=== PATIENT | female | born 2000 | race Caucasian/White ===

== ENCOUNTER 2021-10-14 19:24 | Emergency (ER) | payer OTHER, SELFPAY ==
[2021-10-14 19:30] VITALS: BP 145/81; PULSE 100; RESP 20; TEMP 37.1; O2SAT 100
--- NOTE | 2021-10-14 20:24 | ED.DENTAL ---
HPI - Dental/Oral General Chief complaint: Dental/Oral Stated complaint: tooth pain Time Seen by Provider: 10/14/21 20:25 Source: patient, RN notes reviewed and old records reviewed Mode of arrival: ambulatory Limitations: no limitations History of Present Illness HPI Narrative: 21 year old female who presents to [facility] care with 2 weeks of left lower and upper dental pain with stated complaints of some swelling to her left face, noted increased pain today. Patient denies any shortness of breath or any difficulty with her swallowing. She reports that she received oral antibiotics of Clindamycin and completed this week does have appointment with dentist on . Patient reports that she has been taking Ibuprofen and Tylenol for her pain with minimal decrease in pain noted. MD Complaint: tooth pain Location: Tooth # (14,18) Onset (ago): week(s) (2) Duration: constant Severity: severe Severity scale (1-10): 9 Exacerbating factors: chewing Associated symptoms: other (mild left facial swelling) Treatment prior to arrival: oral analgesic Related Data Home Medications Medication Instructions Recorded Confirmed hydroxyzine HCl 25 mg PO HS 10/14/21 10/14/21 metoprolol succinate 25 mg PO DAILY 10/14/21 10/14/21 triamterene-hydrochlorothiazid 1 tablet PO DAILY 10/14/21 10/14/21 Allergies Allergy/AdvReac Type Severity Reaction Status Date / Time Penicillins Allergy Unknown Facial Verified 10/14/21 20:22 swelling Review of Systems Review of Systems: CONSTITUTIONAL: Denies fever, chills, or sweats. EYES: Denies visual changes, redness, or discharge. ENT: Denies rhinorrhea, congestion, sore throat, or otalgia.positive for dental pain and some swelling to her left face CARDIOVASCULAR: Denies chest pain, palpitations, or edema. RESPIRATORY: Denies cough or dyspnea. GASTROINTESTINAL: Denies abdominal pain, nausea, vomiting, or diarrhea. GENITOURINARY: Denies dysuria or hematuria. SKIN: Denies rash or itching. MUSCULOSKELETAL: Denies back pain, joint pain, or myalgia. NEUROLOGIC: Denies headache, numbness, or weakness. PSYCHIATRIC:Positive history of anxiety or depression. All systems reviewed & are unremarkable except as noted in HPI and below PMFSH Past Medical History Medical History (Updated 10/15/21 @ 12:02 by Luma Braxton NP) Hypertension Morbid obesity Surgical History Surgical History (Updated 10/15/21 @ 12:06 by Luma Braxton NP) No history of previous surgery Social History Social History (Updated 10/15/21 @ 12:03 by Luma Braxton NP) Smoking status: Never smoker Alcohol intake: unknown Substance use type: does not use Living arrangements: with family Gender identity (if verbalized by the patient): Female Comments At time of signature, agree with nursing past medical, surgical, social and family history. There is no relevant family history pertinent to the presenting complaint Exam Narrative: GENERAL: Well-appearing, well-nourished, morbidly obese and in no acute distress. HEAD: Normocephalic, atraumatic. EYES: PERRLA and EOMI. ENT: Nares clear, no rhinorrhea or epistaxis. Mucous membranes moist.TM's normal with good light reflex, throat pink with no lesions or exudates or tonsil enlargement, caries noted to left molars #14.,#18 other teeth look in good condition, minimal left facial swelling noted, no Keo angina noted NECK: Supple.No lymphadenopathy CHEST: Clear to auscultation. No respiratory distress.SAO2 100% on room air HEART: Regular rate and rhythm. No murmur heard. Normal peripheral pulses. ABDOMEN: Soft, nontender, nondistended, normal active bowel sounds. EXTREMITIES: Normal range of motion. No edema. SKIN: Warm, dry, no rash. NEURO: No focal deficits. Alert and oriented x3. Course Course Level of Care: Express Care Visit Vital Signs Vital signs: Vital Signs Temperature 37.1 C 10/14/21 19:30 Pulse Rate 100 10/14/21 19:30 Respiratory Rate 20 05/
== END 2021-10-14 20:44 | disposition home or self-care (01) ==
PROVIDERS: Emergency Provider Registered Nurse; PCP Nurse Practitioner Family
DX: K08.89 Other specified disorders of teeth and supporting structures (principal); K02.9 Dental caries, unspecified; I10 Essential (primary) hypertension; E66.9 Obesity, unspecified; Z68.43 Body mass index [BMI] 50.0-59.9, adult
CPT/HCPCS: 99203; G0463

== ENCOUNTER 2021-11-21 13:03 | Emergency (ER) | payer OTHER, SELFPAY ==
--- NOTE | ~2021-11-21 | XR_ITS ---
EXAMINATION: XR chest 2V DATE: 11/21/2021 13:24 INDICATION: Midsternal chest pain TECHNIQUE: PA and lateral views of the chest are obtained. COMPARISON: 09/10/2018 FINDINGS: The lungs are free of acute opacities. There is no pleural effusion or pneumothorax. The ca rdiomediastinal silhouette is normal. The visualized bones and soft tissues are unremarkable. IMPRESSION: 1. No acute cardiopulmonary abnormality. Reviewed, dictated and finalized at location A.
--- NOTE | 2021-11-21 13:05 | ECG_ITS ---
Measurements Intervals [place] Rate: 111 P: 27 MA: 149 QRS: 13 QRSD: 93 T: 68 QT: 313 QTc: 427 Interpretive Statements SINUS TACHYCARDIA LOW-VOLTAGE QRS IN PRECORDIAL LEADS NONSPECIFIC ST ABNORMALITY HIGH LATERAL LEADS BORDERLINE ECG COMPARED TO ECG 09/10/2018 17:03:19 NO SIGNIFICANT CHANGES Electronically Signed On 11-21-2021 14:57:28 CDT by Adolfo Avendano M.D.
[2021-11-21 13:07] VITALS: PULSE 109; RESP 16; TEMP 36.6; O2SAT 98
--- NOTE | 2021-11-21 13:22 | ED.CHESTPAIN ---
HPI - Chest Pain General Chief Complaint: Chest Pain Stated Complaint: chest pain, abdominal pain Time Seen by Provider: 11/21/21 13:06 History of Present Illness HPI narrative: 21-year-old female presents here for midsternal, nonradiating chest pain and slight shortness of breath that started yesterday while she was sitting down at work, she states that it is intermittent, she has never had symptoms like this in the past, denies any recent stressors or anxiety, no nausea or vomiting, no recent cough, fevers or chills. Has not tried taking anything at home. Not worse with different positions or deep breathing. She does state she has history of cardiac disease in both parents. No leg swelling or history of blood clots. Related Data Home Medications Medication Instructions Recorded Confirmed hydroxyzine HCl 25 mg tablet 25 mg PO HS 10/14/21 10/14/21 metoprolol succinate 25 mg 25 mg PO DAILY 10/14/21 10/14/21 tablet,extended release 24 hr triamterene 37.5 1 tablet PO DAILY 10/14/21 10/14/21 mg-hydrochlorothiazide 25 mg tablet Allergies Allergy/AdvReac Type Severity Reaction Status Date / Time Penicillins Allergy Unknown Facial Verified 11/21/21 13:12 swelling Review of Systems Review of Systems: CONST: No fever. HEENT: No sore throat C/V: Chest pain RESP: No difficulty breathing GI: No nausea : No dysuria. M/S: No joint pain. SKIN: No rash. NEURO: [No headache or focal numbness or weakness] PSYCH: [No depression] [facility] Past Medical History Medical History Hypertension Morbid obesity Surgical History Surgical History No history of previous surgery Social History Social History Smoking status: Never smoker Alcohol intake: unknown Substance use type: does not use Gender identity (if verbalized by the patient): Female Exam Narrative: EXAMINATION OF ORGAN SYSTEMS/BODY AREAS: Constitutional: Vital signs per nursing GENERAL:[No acute distress, non-toxic appearing.] HEAD: Normal with no signs of head trauma. EYES: EOMI, conjunctiva normal ENT: Hearing grossly intact LUNGS: Nonlabored breathing. Clear to auscultation bilaterally. HEART: Mildly tachycardic ABD: [Soft], [nontender to palpation] EXT: Normal range of motion SKIN: [No rashes or lesions.] NEURO: [Alert and oriented x 3. No gross focal sensory or strength deficits.] PSYCH: Normal affect Course Vital Signs Vital signs: Vital Signs Temperature 97.9 F 11/21/21 13:07 Pulse Rate 109 H 11/21/21 13:07 Respiratory Rate 16 11/21/21 13:07 Pulse Oximetry 98 11/21/21 13:07 Oxygen Delivery Room Air 11/21/21 13:07 Temperature 97.9 F 11/21/21 13:07 Pulse Rate 109 H 11/21/21 13:07 Respiratory Rate 16 11/21/21 13:07 Pulse Oximetry 98 11/21/21 13:07 Oxygen Delivery Room Air 11/21/21 13:07 MDM - Chest Pain MDM Narrative Medical decision making narrative: 21-year-old female presents with midsternal chest pain and difficulty breathing at rest, vital signs notable for mild tachycardia, exam shows well-appearing patient with clear lungs, my differential includes possible musculoskeletal pain versus very unlikely ACS/SC given her age and no risk factors, PE, gastritis, pneumonia. EKG shows sinus tachycardia without ischemia, labs notable for normal D-dimer, troponin. On reevaluation, patient's heart rate has improved to 100, she states that her chest pain has resolved, she is ready to go home at this time and reassured on her lab findings, chest x-ray and EKG results. Given return precautions and urged to follow-up with her doctor. Lab Data Result diagrams: 11/21/21 13:41 11/21/21 13:41 Labs: Lab Results 11/21/21 11/21/21 11/21/21 Range/Units 13:41 13:41 13:41 WBC 12.3 H (4.5-10.0) K/mm3 RBC 4.94 (4.2-5.
[2021-11-21 13:50] LABS: Basophils Absolute Auto 0.1 K/mm3 (0.0-0.1); Basophils Percent Auto 0.4 % (0.2-1.2); Eosinophils Absolute Auto 0.1 K/mm3 (0-0.3); Eosinophils Percent Auto 0.8 % (0-4.4); Hematocrit 39.5 % (37.0-47.0); Hemoglobin 12.1 g/dL (12.0-15.0); Immature Granulocyte Absolute 0.06 K/mm3 (0.00-0.031); Immature Granulocyte Percent A 0.5 % (0-0.5); Lymphocytes Absolute Auto 2.88 K/mm3 (0.9-3.2); Lymphocytes Percent Auto 23.3 % (18.3-44.2); Mean Corpuscular HGB Conc 30.6 g/dl (32-36); Mean Corpuscular Hemoglobin 24.5 pg (26-34); Mean Platelet Volume 11.1 fl (7.4-10.4); Monocytes Absolute Auto 0.5 K/mm3 (0.1-0.6); Neutrophils Absolute Auto 8.8 K/mm3 (1.3-6.7); Platelet Count Result 319 k/mm3 (150-375); Red Blood Count 4.94 M/mm3 (4.2-5.4); Red Cell Distribution Width 15.9 % (11.5-14.5); White Blood Count 12.3 K/mm3 (4.5-10.0)
[2021-11-21 13:59] LABS: INR 1.1; Partial Thromboplastin Time 27.4 SECONDS (22.3-36.8); Prothrombin Time 13.3 Seconds (11.1-14.7)
[2021-11-21 14:01] LABS: Alanine Aminotransferase 29 U/L (6-35); Albumin Level 4.1 g/dL (3.5-5.1); Alkaline Phosphatase 100 U/L (38-126); Anion Gap 6 mmol/L (8-16); Aspartate Amino Transferase 24 U/L (14-36); Bilirubin,Total 0.2 mg/dL (0.2-1.3); Blood Urea Nitrogen 13 mg/dL (7-17); Calcium 9.1 mg/dL (8.4-10.2); Carbon Dioxide 34 mmol/L (22-30); Chloride 98 mmol/L (98-107); Estimated CRCL calculation 144 ml/min; Estimated Glomerular Filt Rate > 60; Glucose 115 mg/dL (65-110); Lipase 72 U/L (23-300); Potassium 3.5 mmol/L (3.4-5.0); Sodium 138 mmol/L (137-145)
[2021-11-21 14:02] LABS: D Dimer 0.27 ug/mL (<0.48)
[2021-11-21 14:13] LABS: Troponin I < 0.012 ng/mL (0.000-0.034)
[2021-11-21] MEDS: KETOROLAC 15 MG/ML VIAL (*BKC) IV PUSH (14:17)
[2021-11-21] MEDS: FAMOTIDINE 20 MG TABLET PO (15:08)
== END 2021-11-21 15:12 | disposition home or self-care (01) ==
PROVIDERS: Emergency Medicine; Emergency Provider Emergency Medicine; PCP Nurse Practitioner Family
DX: R07.89 Other chest pain (principal); R10.13 Epigastric pain; I10 Essential (primary) hypertension; E66.01 Morbid (severe) obesity due to excess calories; Z68.43 Body mass index [BMI] 50.0-59.9, adult; R00.0 Tachycardia, unspecified; R94.31 Abnormal electrocardiogram [ECG] [EKG]
CPT/HCPCS: 36415; 71046; 80053; 83690; 84484; 85025; 85380; 85610; 85730; 93005; 96374; 99284; A9270; J1885

== ENCOUNTER 2021-12-15 16:55 | Emergency (ER) | payer OTHER, SELFPAY ==
[2021-12-15 16:58] VITALS: BP 180/87; PULSE 105; RESP 16; TEMP 36.8; O2SAT 99
--- NOTE | 2021-12-15 17:09 | ED.DENTAL ---
HPI - Dental/Oral General Chief complaint: Dental/Oral Stated complaint: Toothache Time Seen by Provider: 12/15/21 17:00 Source: patient Mode of arrival: ambulatory Limitations: no limitations History of Present Illness HPI Narrative: Ms. Ross is a 21-year-old female patient presenting to the clinic today with complaints of left lower jaw pain/possible dental infection. She reports this is been bothering her for a few days now. She denies any fever or chills. States that the pain is in the jaw and radiating into the ear. Related Data Home Medications Medication Instructions Recorded Confirmed metoprolol succinate 25 mg 25 mg PO DAILY 10/14/21 12/15/21 tablet,extended release 24 hr triamterene 37.5 1 tablet PO DAILY 10/14/21 12/15/21 mg-hydrochlorothiazide 25 mg tablet Allergies Allergy/AdvReac Type Severity Reaction Status Date / Time Penicillins Allergy Unknown Facial Verified 12/15/21 17:04 swelling Review of Systems Review of Systems: Pertinent positives per HPI. Patient denies any fever, chills, rash, headache, visual changes, dizziness, cough, runny nose, sore throat, shortness of breath, chest pain, palpitations, nausea, vomiting, diarrhea, constipation, abdominal pain, or any urinary issues. PMFSH Past Medical History Medical History Hypertension Morbid obesity Surgical History Surgical History No history of previous surgery Social History Social History Smoking status: Never smoker Alcohol intake: unknown Substance use type: does not use Gender identity (if verbalized by the patient): Female Comments At the time of my signature, I reviewed and agree with the nursing past medical, surgical, social, and family history. There is no relevant family history pertinent to the patient complaint. Exam Narrative: General: Well-developed, well nourished, in no apparent distress Head: Normocephalic, atraumatic Eyes: Pupils equally round and reactive to light bilaterally, EOM intact, sclera and conjunctive clear, no discharge, lids normal Ears: TMs intact and clear, ear canals clear, no drainage, grossly hearing normal. Nose: Nares patent, no discharge, no inflammation, no sinus tenderness. Mouth: Oropharynx without lesions or masses, good dentition, MMM. Poor dentition, tenderness to palpation of the left lower jaw and over the wisdom tooth Neck: Supple, trachea midline, no enlargement of anterior or posterior cervical nodes, no thyroid masses or goiter palpable. Cardio: Regular rate and rhythm, s1 and s2 normal, no murmur appreciated. Resp: Clear to auscultation bilaterally anteriorly and posteriorly, no rhonchi, rales, wheezing or rubs Course Course Emergency Course: Portions of this record may have been created with voice recognition software. Level of Care: Express Care Visit Vital Signs Vital signs: Vital Signs Temperature 36.8 C 12/15/21 16:58 Pulse Rate 105 H 12/15/21 16:58 Respiratory Rate 16 12/15/21 16:58 Blood Pressure 180/87 H 12/15/21 16:58 Pulse Oximetry 99 12/15/21 16:58 Oxygen Delivery Room Air 12/15/21 16:58 Temperature 36.8 C 12/15/21 16:58 Pulse Rate 105 H 12/15/21 16:58 Respiratory Rate 16 12/15/21 16:58 Blood Pressure 180/87 H 12/15/21 16:58 Pulse Oximetry 99 12/15/21 16:58 Oxygen Delivery Room Air 12/15/21 16:58 Vital signs reviewed MDM - Dental/Oral MDM Narrative Medical decision making narrative: At the time of visit patient is resting comfortably on the exam table. I suspect the patient has a dental infection/impaction of wisdom tooth. We will place the patient on a course of clindamycin and have her follow-up with the dentist as soon as possible. Supportive measures were discussed with the patient she voiced understa
== END 2021-12-15 17:13 | disposition home or self-care (01) ==
PROVIDERS: Emergency Provider Nurse Practitioner Family; PCP Nurse Practitioner Family
DX: K08.89 Other specified disorders of teeth and supporting structures (principal); I10 Essential (primary) hypertension; E66.01 Morbid (severe) obesity due to excess calories; Z68.42 Body mass index [BMI] 45.0-49.9, adult
CPT/HCPCS: 99213; G0463

== ENCOUNTER 2022-05-03 13:01 | Emergency (ER) | payer OTHER, SELFPAY ==
[2022-05-03 13:12] VITALS: BP 145/79; PULSE 108; RESP 18; TEMP 36.6; O2SAT 98
--- NOTE | 2022-05-03 13:32 | ED.URI ---
HPI - URI/Sore Throat General Chief Complaint: Upper Respiratory Infection Stated Complaint: Vaginal Issue Source: patient and RN notes reviewed Mode of arrival: ambulatory Limitations: no limitations History of Present Illness HPI Narrative: 22-year-old female presents for complaint of vaginal irritation over the last week. She states she started with burning with urination at the onset, she took azo without relief. She states then it progressed to more itching, redness, tenderness. She endorses thick white vaginal discharge. She has used Monistat 3 without relief. Denies sores or lesions to the site, denies abdominal pain, nausea, vomiting, diarrhea, hematuria, flank pain, fevers or chills. Denies concern for STD. LMP 6 weeks ago, states she has irregular cycles. No control. Unable to be seen by OBgyn. Related Data Home Medications Medication Instructions Recorded Confirmed metoprolol succinate 25 mg 25 mg PO DAILY 10/14/21 05/03/22 tablet,extended release 24 hr triamterene 37.5 1 tablet PO DAILY 10/14/21 05/03/22 mg-hydrochlorothiazide 25 mg tablet Allergies Allergy/AdvReac Type Severity Reaction Status Date / Time Penicillins Allergy Unknown Facial Verified 05/03/22 13:14 swelling Review of Systems Review of Systems: CONSTITUTIONAL: Denies body aches, fever, chills, or sweats. CARDIOVASCULAR: Denies chest pain, palpitations, or edema. RESPIRATORY: Denies cough or dyspnea. GASTROINTESTINAL: Denies abdominal pain, nausea, vomiting, or diarrhea. GENITOURINARY: per HPI SKIN: Denies rash, itching, or wounds. MUSCULOSKELETAL: Denies back pain or myalgia. [facility] Past Medical History Medical History Hypertension Morbid obesity Surgical History Surgical History No history of previous surgery Social History Social History Smoking status: Never smoker Alcohol intake: unknown Substance use type: does not use Gender identity (if verbalized by the patient): Female Comments At time of signature, I have reviewed and agree with nursing past medical, surgical, social and family history unless otherwise noted. Please see nursing chart for further information. There is no relevant family history pertinent to the presenting complaint Exam Narrative: GENERAL: Well-appearing and in no acute distress. ENT: Mucous membranes pink and moist. CHEST: No respiratory distress. Clear to auscultation. HEART: Regular rate and rhythm. ABDOMEN: Soft, large, nontender, nondistended, normal active bowel sounds. No CVA tenderness SKIN: Warm, dry, no rash. NEURO: No focal deficits. Alert and oriented x3. Gait steady. PSYCH: Normal affect. Course Course Emergency Course: Patient is aware of diagnosis, understands and agrees to treatment plan. Anticipatory guidance given. Patient agrees to follow-up as directed and is aware of reasons to seek care at the emergency department. Portions of this record may have been created with voice recognition software Level of Care: Express Care Visit Vital Signs Vital signs: Vital Signs Temperature 97.8 F 05/03/22 13:12 Pulse Rate 108 H 05/03/22 13:12 Respiratory Rate 18 05/03/22 13:12 Blood Pressure 145/79 H 05/03/22 13:12 Pulse Oximetry 98 05/03/22 13:12 Oxygen Delivery Room Air 05/03/22 13:12 Temperature 97.8 F 05/03/22 13:12 Pulse Rate 108 H 05/03/22 13:12 Respiratory Rate 18 05/03/22 13:12 Blood Pressure 145/79 H 05/03/22 13:12 Pulse Oximetry 98 05/03/22 13:12 Oxygen Delivery Room Air 05/03/22 13:12 Reviewed MDM - URI/Sore Throat MDM Narrative Medical decision making narrative: Patient presented with main complaint of vaginal itching. Declines pelvic exam. She denies concern for STD and declines testing. She would like additional
== END 2022-05-03 14:00 | disposition home or self-care (01) ==
PROVIDERS: Emergency Provider Nurse Practitioner Family; PCP Nurse Practitioner Family
DX: N89.8 Other specified noninflammatory disorders of vagina (principal); I10 Essential (primary) hypertension; E66.01 Morbid (severe) obesity due to excess calories; Z68.43 Body mass index [BMI] 50.0-59.9, adult
CPT/HCPCS: 81003; 81025; 87086; 87088; 99213; G0463

== ENCOUNTER 2022-08-29 09:48 | Emergency (ER) | payer OTHER, SELFPAY ==
[2022-08-29 10:01] VITALS: BP 153/86; PULSE 83; RESP 16; TEMP 36.3; O2SAT 98
--- NOTE | 2022-08-29 10:42 | ED.GENADULT ---
HPI - General Adult General Chief complaint: Upper Respiratory Infection Stated complaint: Congestion/Sore Throat Source: patient Mode of arrival: ambulatory Limitations: no limitations History of Present Illness HPI narrative: PATIENT PRESENTS FOR EVALUATION OF SICK SYMPTOMS FOR LAST 2-3 DAYS. SYMPTOMS INCLUDE SINUS CONGESTION, CLEAR RHINORRHEA, SORE THROAT, FRONTAL HEADACHE, AND SUBJECTIVE FEVER. NO CHILLS, NAUSEA, VOMITING, DIARRHEA, COUGH, SHORTNESS OF BREATH. NO RECENT SICK CONTACTS TO HER KNOWLEDGE. SHE TRIED TAKING SOME [id number] COUGH AND COLD MEDICATION WITHOUT CONSIDERABLE IMPROVEMENT IN HER SYMPTOMS OR AFTER. SHE DOES NOT SMOKE. Related Data Home Medications Medication Instructions Recorded Confirmed metoprolol succinate 25 mg 25 mg PO DAILY 10/14/21 05/03/22 tablet,extended release 24 hr triamterene 37.5 1 tablet PO DAILY 10/14/21 05/03/22 mg-hydrochlorothiazide 25 mg tablet Allergies Allergy/AdvReac Type Severity Reaction Status Date / Time Penicillins Allergy Unknown Facial Verified 05/03/22 13:14 swelling Review of Systems Review of Systems: CONSTITUTIONAL: REPORTS FEVER. DENIES CHILLS, OR SWEATS. EYES: DENIES VISUAL CHANGES, REDNESS, OR DISCHARGE. ENT: REPORTS SINUS CONGESTION, CLEAR RHINORRHEA, SORE THROAT. CARDIOVASCULAR: DENIES CHEST PAIN, PALPITATIONS, OR EDEMA. RESPIRATORY: DENIES COUGH OR DYSPNEA. GASTROINTESTINAL: DENIES ABDOMINAL PAIN, NAUSEA, VOMITING, OR DIARRHEA. GENITOURINARY: DENIES DYSURIA OR HEMATURIA. SKIN: DENIES RASH OR ITCHING. MUSCULOSKELETAL: DENIES BACK PAIN, JOINT PAIN, OR MYALGIA. NEUROLOGIC: REPORTS HEADACHE. DENIES NUMBNESS, DIZZINESS, OR WEAKNESS. PSYCHIATRIC: DENIES ANXIETY OR DEPRESSION. [facility] Past Medical History Medical History Hypertension Morbid obesity LEDA (obstructive sleep apnea) Surgical History Surgical History No history of previous surgery Family History Family History Mother Family history non-contributory Social History Social History Smoking status: Never smoker Alcohol intake: unknown Substance use type: does not use Living arrangements: with family Gender identity (if verbalized by the patient): Female Sexual Orientation (if Verbalized by the Patient): Straight or Heterosexual Spiritual care concerns: No Exam Narrative: GENERAL: WELL-APPEARING, WELL-NOURISHED, AND IN NO ACUTE DISTRESS. HEAD: NORMOCEPHALIC, ATRAUMATIC. EYES: PERRLA AND EOMI. ENT: NARES CLEAR, NO RHINORRHEA OR EPISTAXIS. MUCOUS MEMBRANES MOIST. OROPHARYNX WITHOUT TONSILLAR HYPERTROPHY EXUDATE OR OTHER LESIONS. BILATERAL TMS PEARLY LEES NONBULGING NECK: SUPPLE. NO ADENOPATHY OR MASSES. NO CAROTID BRUITS OR JVD CHEST: CLEAR TO AUSCULTATION. NO RESPIRATORY DISTRESS. NO WHEEZES RALES OR RHONCHI HEART: REGULAR RATE AND RHYTHM. NO MURMUR HEARD. NORMAL PERIPHERAL PULSES. ABDOMEN: SOFT, NONTENDER, NONDISTENDED, NORMAL ACTIVE BOWEL SOUNDS. EXTREMITIES: NORMAL RANGE OF MOTION. NO EDEMA. SKIN: WARM, DRY, NO RASH. NEURO: NO FOCAL DEFICITS. ALERT AND ORIENTED X3. PSYCH: NORMAL MOOD AND AFFECT. Course Course Emergency Course: THIS IS A 22-YEAR-OLD FEMALE WHO PRESENTED FOR EVALUATION OF SICK SYMPTOMS. STREP WAS NEGATIVE. EXAM IS CONSISTENT WITH ACUTE VIRAL SYNDROME. SUDAFED AND FLONASE MAY HELP WITH SINUS CONGESTION. INCREASE HYDRATION. FOLLOW UP WITH PRIMARY PROVIDER. GO TO THE ER FOR WORSENING SYMPTOMS. PATIENT IN AGREEMENT WITH PLAN OF CARE. Level of Care: Express Care Visit Vital Signs Vital signs: Vital Signs Temperature 36.3 C L 08/29/22 10:01 Pulse Rate 83 08/29/22 10:01 Respiratory Rate 16 08/29/22 10:01 Blood Pressure 153/86 H 08/29/22 10:01 Pulse Oximetry 98 08/29/22 10:01
== END 2022-08-29 11:27 | disposition home or self-care (01) ==
PROVIDERS: Emergency Provider Nurse Practitioner; PCP Nurse Practitioner Family
DX: B34.9 Viral infection, unspecified (principal); I10 Essential (primary) hypertension; E66.01 Morbid (severe) obesity due to excess calories
CPT/HCPCS: 87081; 87880; 99213; G0463

== ENCOUNTER 2022-09-07 08:45 | Emergency (ER) | payer OTHER, SELFPAY ==
[2022-09-07 08:53] VITALS: BP 149/80; PULSE 100; RESP 18; TEMP 36.6; O2SAT 98
--- NOTE | 2022-09-07 09:04 | ED.URI ---
HPI - URI/Sore Throat General Chief Complaint: Upper Respiratory Infection Stated Complaint: Congestion/Chest Congestion/Sore Throat Source: patient and RN notes reviewed History of Present Illness HPI Narrative: 22 yo F presents to urgent care with complaints of worsening congestion, sore throat, and cough. Pt states her throat is now on fire. Pt was seen here about 1 week ago with the same symptoms and dx with a viral illness. Pt has been using OTC meds without relief. Pt reports vomiting with coughing hard. Pt reports some SOB. Denies any chest pain, ear pain, or diarrhea. Related Data Home Medications Medication Instructions Recorded Confirmed metoprolol succinate 25 mg 25 mg PO DAILY 10/14/21 09/07/22 tablet,extended release 24 hr triamterene 37.5 1 tablet PO DAILY 10/14/21 09/07/22 mg-hydrochlorothiazide 25 mg tablet Allergies Allergy/AdvReac Type Severity Reaction Status Date / Time Penicillins Allergy Unknown Facial Verified 05/03/22 13:14 swelling Review of Systems Review of Systems: Pertinent positives and pertinent negatives per HPI. PMF Past Medical History Medical History Hypertension Morbid obesity LEDA (obstructive sleep apnea) Surgical History Surgical History No history of previous surgery Family History Family History Mother Family history non-contributory Social History Social History Smoking status: Never smoker Alcohol intake: unknown Substance use type: does not use Living arrangements: with family Gender identity (if verbalized by the patient): Female Sexual Orientation (if Verbalized by the Patient): Straight or Heterosexual Spiritual care concerns: No Comments At the time of my signature, I reviewed and agree with the nursing past medical, surgical, social, and family history. There is no relevant family history pertinent to the patient complaint. Exam Narrative: GENERAL: This is a well-nourished, well-developed patient, in no apparent distress. HEAD: normocephalic, atraumatic. EYES: Sclera clear/white. Vision is grossly intact. EARS: External ears normal, auditory canals clear and without drainage. Hearing grossly intact. NOSE: External nose normal with no obvious nasal discharge, nares without redness, no rhinorrhea. THROAT: Mucous membranes moist, posterior pharynx clear. NECK: Neck supple, non-tender without lymphadenopathy, masses or thyromegaly. CARDIOVASCULAR: Regular rate and rhythm without murmurs, gallops, or rubs. RESPIRATORY:Diminished, possibly due to body habitus. GASTROINTESTINAL: Abdomen soft, non-tender, nondistended. Bowel sounds are active. No hepato-splenomegaly, or palpable masses. No guarding. SKIN: warm, intact with no suspicious lesions or rash, good texture and turgor. NEURO: awake, alert, and oriented to person, place and time. There were no obvious focal neurologic abnormalities. Course Course Level of Care: Express Care Visit Vital Signs Vital signs: Vital Signs Temperature 98 F 09/07/22 08:53 Pulse Rate 100 09/07/22 08:53 Respiratory Rate 18 09/07/22 08:53 Blood Pressure 149/80 H 09/07/22 08:53 Pulse Oximetry 98 09/07/22 08:53 Oxygen Delivery Room Air 09/07/22 08:53 Temperature 98 F 09/07/22 08:53 Pulse Rate 100 09/07/22 08:53 Respiratory Rate 18 09/07/22 08:53 Blood Pressure 149/80 H 09/07/22 08:53 Pulse Oximetry 98 09/07/22 08:53 Oxygen Delivery Room Air 09/07/22 08:53 Reviewed MDM - URI/Sore Throat MDM Narrative Medical decision making narrative: Go to the ER for any new or worsening symptoms. Avoid smoking/second-hand smoke. Continue to take Tylenol or Motrin for pain. Increase your Vitamin C intake. Use a humidifi
== END 2022-09-07 09:22 | disposition home or self-care (01) ==
PROVIDERS: Emergency Provider Nurse Practitioner Family; PCP Nurse Practitioner Family
DX: J32.9 Chronic sinusitis, unspecified (principal); I10 Essential (primary) hypertension; E66.01 Morbid (severe) obesity due to excess calories; Z68.44 Body mass index [BMI] 60.0-69.9, adult
CPT/HCPCS: 99213; G0463

== ENCOUNTER 2023-02-09 10:09 | Emergency (ER) | payer OTHER, SELFPAY ==
[2023-02-09 10:29] VITALS: BP 125/70; PULSE 99; RESP 16; TEMP 36.8; O2SAT 99
--- NOTE | 2023-02-09 11:00 | ED.GENADULT ---
HPI - General Adult General Chief complaint: Upper Respiratory Infection Stated complaint: Sore Throat/Nausea Time Seen by Provider: 02/09/23 11:00 Source: patient and RN notes reviewed Mode of arrival: ambulatory Limitations: no limitations History of Present Illness HPI narrative: 23 year old female who presents to [facility] care with complaints of intermittent nausea and vomiting for past week, children also with similar symptoms. Patient had gastric sleeve procedure 3 weeks ago and did call her surgeon. Patient denies any known fevers chills or body aches, denies any sore throat,reports some cough with productive mucous of yellowish green. Patient reports that she last vomited yesterday around noon. Patient reports that she has taken some Zofran and Tylenol for her symptoms. Patient denies any abdominal pain. MD complaint: nausea and vomiting, productive cough Onset (ago): week(s) (1) Severity: mild Treatments prior to arrival: other (Zofran, Tylenol) Related Data Home Medications Medication Instructions Recorded Confirmed metoprolol succinate 25 mg 25 mg PO DAILY 10/14/21 02/09/23 tablet,extended release 24 hr triamterene 37.5 1 tablet PO DAILY 10/14/21 02/09/23 mg-hydrochlorothiazide 25 mg tablet Allergies Allergy/AdvReac Type Severity Reaction Status Date / Time Penicillins Allergy Unknown Facial Verified 02/09/23 10:27 swelling Review of Systems Review of Systems: CONSTITUTIONAL: Denies fever, chills, or sweats. EYES: Denies visual changes, redness, or discharge. ENT:Some rhinorrhea, congestion, no sore throat, or otalgia. CARDIOVASCULAR: Denies chest pain, palpitations, or edema. RESPIRATORY: Reports productive cough or dyspnea. GASTROINTESTINAL: Denies abdominal pain, positive for nausea, vomiting, no diarrhea. GENITOURINARY: Denies dysuria or hematuria. SKIN: Denies rash or itching. MUSCULOSKELETAL: Denies back pain, joint pain, or myalgia. NEUROLOGIC: Denies headache, numbness, or weakness. PSYCHIATRIC: Denies anxiety or depression. All systems reviewed & are unremarkable except as noted in HPI and below PMFSH Past Medical History Medical History Hypertension Morbid obesity LEDA (obstructive sleep apnea) Surgical History Surgical History (Updated 02/10/23 @ 10:20 by Luma Braxton NP) H/O gastric sleeve Family History Family History Mother Family history non-contributory Social History Social History Smoking status: Never smoker Alcohol intake: unknown Substance use type: does not use Living arrangements: with family Gender identity (if verbalized by the patient): Female Sexual Orientation (if Verbalized by the Patient): Straight or Heterosexual Spiritual care concerns: No Comments At time of signature, agree with nursing past medical, surgical, social and family history. There is no relevant family history pertinent to the presenting complaint Exam Narrative: GENERAL: Well-appearing, well-nourished, and in no acute distress. HEAD: Normocephalic, atraumatic. EYES: PERRLA and EOMI. ENT: Nares clear, clear rhinorrhea no epistaxis. Mucous membranes moist.TM's normal, throat pink with no lesions or swelling NECK: Supple.no lymphadenopathy CHEST: Clear to auscultation. No respiratory distress. SAO2 99% on room air HEART: Regular rate and rhythm. No murmur heard. Normal peripheral pulses. ABDOMEN: Soft, nontender, nondistended, normal active bowel sounds.intermittent nausea with vomiting EXTREMITIES: Normal range of motion. No edema. SKIN: Warm, dry, no rash. NEURO: No focal deficits. Alert and oriented x3. Course Course Emergency Course: Patient is aware of diagnosis, understands and agrees to treatment plan.? Anticipatory guidance given.? Patient agrees to follow-up as directed and is aw
== END 2023-02-09 11:45 | disposition home or self-care (01) ==
PROVIDERS: Emergency Provider Registered Nurse; PCP Nurse Practitioner Family
DX: R11.2 Nausea with vomiting, unspecified (principal); I10 Essential (primary) hypertension; E66.01 Morbid (severe) obesity due to excess calories; Z68.43 Body mass index [BMI] 50.0-59.9, adult; Z98.84 Bariatric surgery status
CPT/HCPCS: 99211; G0463

== ENCOUNTER 2023-12-29 14:30 | Emergency (ER) | payer OTHER, SELFPAY ==
[2023-12-29 14:38] VITALS: BP 127/72; PULSE 103; RESP 20; TEMP 36.6; O2SAT 99
--- NOTE | 2023-12-29 15:07 | ED.URI ---
HPI - URI/Sore Throat General Chief Complaint: Upper Respiratory Infection Stated Complaint: Ear Pain/Sore Throat Time Seen by Provider: 12/29/23 14:50 Source: patient, RN notes reviewed and old records reviewed Mode of arrival: ambulatory Limitations: no limitations History of Present Illness HPI Narrative: 23 year old female who presents to [facility] care with complaints of one week of feeling drained with pain to her left ear for the past 2 days radiating to her throat with pain to right side of her neck. Patient reports that she has had fevers up to 101F and has been taking Tylenol for her symptoms.Patient reports no cough or any sinus congestion or drainage or sore throat. MD elicited complaint: other (ear pain) Pertinent past history: tympanostony tubes (as child) Onset (ago): day(s) (2 days) Pain scale (0-10): 5 Able to tolerate fluids by mouth: Yes Treatments prior to arrival: acetaminophen Related Data Home Medications Medication Instructions Recorded Confirmed metoprolol succinate 25 mg 25 mg PO DAILY 10/14/21 02/09/23 tablet,extended release 24 hr triamterene 37.5 1 tablet PO DAILY 10/14/21 02/09/23 mg-hydrochlorothiazide 25 mg tablet famotidine 20 mg tablet mg 12/29/23 medroxyprogesterone 10 mg tablet mg 12/29/23 Allergies Allergy/AdvReac Type Severity Reaction Status Date / Time Penicillins Allergy Unknown Facial Verified 02/09/23 10:27 swelling Review of Systems Review of Systems: CONSTITUTIONAL: Reports malaise, chills, sweats, or fever. EYES: Denies visual changes, redness, or discharge. ENT: Reports no rhinorrhea, congestion, sinus pain, left ear pain otalgia and no sore throat, reports left neck gland discomfort CARDIOVASCULAR: Denies chest pain, palpitations, or edema. RESPIRATORY: Reports no cough.? Denies dyspnea. GASTROINTESTINAL: Denies abdominal pain, nausea, vomiting, diarrhea SKIN: Denies rash or itching. MUSCULOSKELETAL: Denies myalgia. NEUROLOGIC: Denies headache. All systems reviewed & are unremarkable except as noted in HPI and below PMFSH Past Medical History Medical History Hypertension Morbid obesity LEDA (obstructive sleep apnea) Surgical History Surgical History H/O gastric sleeve History of placement of ear tubes Family History Family History Mother Family history non-contributory Social History Social History Smoking status: Never smoker Alcohol intake: unknown Substance use type: does not use Living arrangements: with family Gender identity (if verbalized by the patient): Female Sexual Orientation (if Verbalized by the Patient): Straight or Heterosexual Spiritual care concerns: No Comments At time of signature, agree with nursing past medical, surgical, social and family history. There is no relevant family history pertinent to the presenting complaint Exam Narrative: GENERAL: Well-appearing, well-nourished, and in no acute distress. HEAD: Normocephalic EYES: PERRLA, conjunctivae clear ENT: Nares clear, turbinates edematous and erythematous, clear discharge. Mucous membranes moist.Left TM red and bulging, Right TM pearly davalos with dull light reflex; no tragal tenderness. Oropharynx erythematous without lesions. Tonsils not enlarged and without exudate, no drooling, no hoarseness, no trismus, uvula midline. NECK: Supple. left lymphadenopathy CHEST: Clear to auscultation, breath sounds equal. No wheezing, rhonchi, rales, or stridor. No respiratory distress, speaks in full sentences.SAO2 99% on room air HEART: Regular rate and rhythm. No murmur heard. SKIN: Warm, dry, no rash. NEURO: Alert and oriented x3. PSYCH: Normal mood and affect Course Course Emergency Course: Patient
== END 2023-12-29 15:25 | disposition home or self-care (01) ==
PROVIDERS: Emergency Provider Registered Nurse; PCP Nurse Practitioner Family
DX: H66.92 Otitis media, unspecified, left ear (principal); I10 Essential (primary) hypertension; E66.01 Morbid (severe) obesity due to excess calories; Z68.41 Body mass index [BMI] 40.0-44.9, adult; Z98.84 Bariatric surgery status
CPT/HCPCS: 99213; G0463

== ENCOUNTER 2024-06-06 09:22 | Emergency (ER) | payer OTHER, SELFPAY ==
[2024-06-06 09:31] VITALS: BP 134/75; PULSE 88; RESP 18; TEMP 36.6; O2SAT 99
--- NOTE | 2024-06-06 09:50 | ED.FEMALEGU ---
HPI - Female Genitourinary General Chief complaint: Urogenital-Female Stated complaint: STD test Time Seen by Provider: 06/06/24 09:50 Source: patient and RN notes reviewed Mode of arrival: ambulatory Limitations: no limitations History of Present Illness HPI Narrative: 24-year-old female presented for concern for STD And exposure. She states she had unprotected sexual activity and woke up the following morning on 06/04 with lower abdominal pressure, vaginal discharge , odor, and irritation. she was then told the partner tested positive for chlamydia but did not think she could get at that quickly. denies nausea, vomiting, diarrhea, fevers or chills. Related Data Home Medications ?Medication ?Instructions ?Recorded ?Confirmed ?Last Taken ?Type metoprolol succinate 25 mg 25 mg PO DAILY 10/14/21 02/09/23 Unknown History tablet,extended release 24 hr triamterene 37.5 1 tablet PO DAILY 10/14/21 02/09/23 Unknown History mg-hydrochlorothiazide 25 mg tablet Allergies Allergy/AdvReac Type Severity Reaction Status Date / Time Penicillins Allergy Unknown Facial Verified 02/09/23 10:27 swelling Review of Systems Review of Systems: CONSTITUTIONAL: Denies body aches, fever, chills, or sweats. CARDIOVASCULAR: Denies chest pain, palpitations, or edema. RESPIRATORY: Denies cough or dyspnea. GASTROINTESTINAL: Denies abdominal pain, nausea, vomiting, or diarrhea. GENITOURINARY: Reports vaginal discharge, low abdominal pressure denies dysuria, frequency, urgency, hematuria, flank pain SKIN: Denies rash MUSCULOSKELETAL: Denies back pain or myalgia. [facility] Past Medical History Medical History LEDA (obstructive sleep apnea) Morbid obesity Hypertension Surgical History Surgical History History of placement of ear tubes H/O gastric sleeve Family History Family History Mother Family history non-contributory Social History Social History Smoking status: Never smoker Alcohol intake: unknown Substance use type: does not use Living arrangements: with family Gender identity (if verbalized by the patient): Female Sexual Orientation (if Verbalized by the Patient): Straight or Heterosexual Spiritual care concerns: No Comments At time of signature, I have reviewed and agree with nursing past medical, surgical, social and family history unless otherwise noted. Please see nursing chart for further information. There is no relevant family history pertinent to the presenting complaint Exam Narrative: GENERAL: Well-appearin ENT: Mucous membranes pink and moist. NECK: Normal AROM. Supple. CHEST: No respiratory distress. Clear to auscultation. HEART: Regular rate and rhythm. ABDOMEN: Soft, nontender, nondistended, normal active bowel sounds. No CVA tenderness SKIN: Warm, dry NEURO: No focal deficits. Alert and oriented x3. Gait steady. PSYCH: Normal affect. Course Course Emergency Course: Patient is aware of diagnosis, understands and agrees to treatment plan. Anticipatory guidance given. Patient agrees to follow-up as directed and is aware of reasons to seek care at the emergency department. Portions of this record may have been created with voice recognition software Level of Care: Express Care Visit Vital Signs Vital signs: Vital Signs Temperature 98 F 06/06/24 09:31 Pulse Rate 88 06/06/24 09:31 Respiratory Rate 18 06/06/24 09:31 Blood Pressure 134/75 06/06/24 09:31 Pulse Oximetry 99 06/06/24 09:31 Oxygen Delivery Room Air 06/06/24 09:31 Temperature 98 F 06/06/24 09:31 Pulse Rate 88 06/06/24 09:31 Respiratory Rate 18 06/06/24 09:31 Blood Pressure 134/75 06/06/24 09:31 Pulse Oximetry 99 06/06/24 09:31 Oxygen Delivery Room Air 06/06/24 09:31 Reviewed MDM - Female Genitourinary MDM Narrative Medical decision making narrative: Patient presenting with concern for STD. Urine specimen collected for GC, chlamydia, trich. Neg preg. declined pelvic exam. Informed Pt will be contacted w/ results when they become available if they are positive. Discussed with patient that it takes up to 7 days for results of cultures to be released and explained that we may treat empirically at this time. Agreeable to treatment at this time. I have instructed the patient to return to the ER at any time if there are any new or worsening symptoms. The patient expressed understanding of and agreement with this plan. Differential Diagnosis Differential diagnosis: Likely urinary tract infection, bacterial vaginosis, trichomoniasis, vaginitis, cystitis and other (std) Lab Data Labs: Lab Results 06/06/24 Range/Units 10:05 POC Urine HCG, Qual Negative (Negative) Discharge Plan Discharge Clinical Impression: Concern about STD in female without diagnosis Patient Disposition: Home, Self-Care Condition: Stable Instructions: Antibiotic Form, Sexually Transmitted Diseases (ED), Safe Sex Practices (ED) Additional Instructions: Your urine sample today was sent off to test for gonorrhea, chlamydia, and trichomonas infections. You will be called if any of your tests come back positive. These tests can take up to 5 days to come back. You have been given Rocephin today to treat for gonorrhea Prescriptions for Flagyl and Doxycycline have been sent to your pharmacy to cover for trichomonas and chlamydia. If your tests come back positive you should need no further treatment. You will need to notify any partners that you have so they can be tested and treated. To avoid reinfection, you are advised to abstain from sexual intercourse for 7 days (and any symptoms have resolved) to prevent transmission. If your tests come back negative and you are still experiencing symptoms, please follow-up with your PCP or Obgyn for further evaluation and treatment. If your symptoms worsen to include fever, abdominal pain, or back pain, please go to the hospital immediately. Patient Language: Amharic Prescriptions: New metronidazole 500 mg tablet 500 mg PO Q12H 7 Days Qty: 14 0RF doxycycline hyclate 100 mg tablet 100 mg PO BID 7 Days Qty: 14 0RF No Action azithromycin 500 mg tablet 500 mg PO DAILY 5 Days Qty: 5 0RF metoprolol succinate 25 mg tablet extended release 24 hr 25 mg PO DAILY triamterene-hydrochlorothiazid 37.5-25 mg tablet 1 tablet PO DAILY Follow-up/Referrals: PHYSICIAN NOT ON STAFF,NONSTAFF [Primary Care Provider] -
[2024-06-06 10:07] LABS: BEDSIDEPREGUCG Negative (Negative)
[2024-06-06] MEDS: cefTRIAXone 500 MG, LIDOCAINE 1% LOCAL INJ 1 ML IM (10:11)
[2024-06-06 19:38] LABS: Trichomonas Vag PCR NOT DETECTED (NOT DETECTE)
[2024-06-06 20:01] LABS: Chlamydia trachomatis NOT DETECTED (NOT DETECTE); Neisseria gonorrhoeae PCR NOT DETECTED (NOT DETECTE)
--- OUTSIDE RECORDS SUMMARY | 2024-06-13 23:55 | XMS_ITS | Encounter Summary ---
Author Organization [facility] [employer] Care Team Providers Care Hospitality Manager Name Role Phone Damian Verde APRN, CNP Primary Care Provider + Encounter Details Date Type Department Care Team (Latest Contact Info) Description 04/27/2020 Travel Social History Tobacco Use Types Packs/Day Years Used Date Smoking Tobacco: Never Smokeless Tobacco: Never Alcohol Use Standard Drinks/Week Comments Yes 0 (1 standard drink = 0.6 oz pur e alcohol) occasionally Comments No Sex and Gender Information Value Date Recorded Sex Assigned at Not on file Legal Sex Female 10:18 PM CDT Gender Identity Not on file Sexual Orientation Not on file COVID-19 Exposure Response Date Recorded In the last month, have you been in contact with someone who was confirmed or suspected to have Coronavirus / COVID-19? No / Unsure 04/27/2020 12:43 PM MILITARY EDUCATION COORDINATOR documented as of this encounter Plan of Treatment Upcoming Encounters Date Type Department Care Team (Late st Contact Info) Description 08/07/2024 10:00 AM MILITARY EDUCATION COORDINATOR Office Visit [facility]monology & [facility] Medicine - [address] [place] [address] Philippe Granados MD [address] [place] [id number] documented as of this encounter Visit Diagnoses Not on filedocumented in this encounter Care Teams Hospitality Manager Relationship Specialty Start Date End Date Damian Verde, CYTOPATHOLOGIST, CAR REFINISHER [address] [place] [address] PCP - General Internal Medicine 04/27/20 10/04/21 documented as of this encounter
--- OUTSIDE RECORDS SUMMARY | 2024-06-13 23:55 | XMS_ITS | Encounter Summary ---
Author Organization [facility] Address [address] [place] [address] Phone Care Team Providers Care Geological Manager Name Role Phone Damian Verde APRN, PLANT PHYSIOLOGY TEACHER Primary Care Provider + Reason for Visit * Reason Comments Vaginal Bleeding Encounter Details Date Type Department Care Team (Late st Contact Info) Description 04/27/2020 12:48 PM INSIDE SALES TERRITORY MANAGER - 04/27/2020 2:17 PM INSIDE SALES TERRITORY MANAGER Emergency [facility] Emergency [address] [place] [address] Nayan Mauricio, PAC [address] [place] [address] Menorrhagia Discharge Disposition: Discharged to home or Selfcare Social History Tobacco Use Types Packs/Day Years [...] COVID-19? No / Unsure 04/27/2020 12:43 PM INSIDE SALES TERRITORY MANAGER documented as of this encounter Last Filed Vital Signs Vital Sign Reading Time Taken Comments Blood Pressure 142/86 04/27/2020 2:15 PM INSIDE SALES TERRITORY MANAGER Pulse 86 04/27/2020 2:15 PM INSIDE SALES TERRITORY MANAGER Temperature 36.6 ??C (97.9 ??F) 04/27/2020 12:[address] Respiratory Rate 18 04/27/2020 2:15 PM INSIDE SALES TERRITORY MANAGER Oxygen Saturation 99% 04/27/2020 2:15 PM INSIDE SALES TERRITORY MANAGER Inhaled Oxygen Concentration - - Weight 136.1 kg (300 lb) 04/27/2020 12:42 PM INSIDE SALES TERRITORY MANAGER Height 165.1 cm (5' 5 ) 04/27/2020 12:42 PM INSIDE SALES TERRITORY MANAGER Body Mass Index 49.92 04/27/2020 12:42 PM INSIDE SALES TERRITORY MANAGER documented in this encounter Discharge Instructions * Attachments The following attachments cannot be sent through Care Everywhere. * Dysfunctional Uterine Bleeding ([place]) documented in this encounter Medications at Time of Discharge azithromycin (ZITHROMAX Z-ISHAN) 250 MG Tablet 2 tab(s) daily for 1 day, then 1 tab(s) daily for days 2-5. 6 Tab 12/16/2019 01/18/2022 ferrous sulfate 325 (65 Fe) MG Tablet Take 1 Tab by mouth 2 times daily. 180 Tab 05/14/2017 2023 HYDROcodone-acet aminophen (NORCO) 5-325 MG Tablet Take 1 Tab by mouth every 6 hours as needed for Moderate or more severe pain. 10 Tab 01/28/2019 01/18/2022 ibuprofen (MOTRIN) 600 MG Tablet Take 1 Tab by mouth every 6 hours as needed for Pain. 20 Tab 07/25/2017 01/18/2022 ketorolac (TORADOL) 10 MG Tablet Take 1 Tab by mouth every 6 hours as needed for Mild or more severe pain. 15 Tab 12/16/2019 01/18/2022 metroNIDAZOLE (FLAGYL) 500 MG Tablet Take 1 Tab by mouth 2 times daily. 28 Tab 04/29/2018 01/18/2022 documented as of this encounter ED Notes * Melissa Soto RN - 04/27/2020 2:16 PM CST Patient discharged. Discharge instructions and patient educational material reviewed with patient; questions and concerns addressed; patient verbalizes understanding, using teach back. Patient was given 0 prescriptions. Patient ambulatory with steady gait; no distress noted. DE SALES TERRITORY MANAGER * Nayan Mauricio, MIGUE - 04/27/2020 2:01 PM CST Chief Complaint Patient presents with ??? Vaginal Bleeding Maeve Ross is a 20 y.o. female who presents to the ED c/o rechecking CBC. Patient has been experiencing menorrhagia x1 month. She has been working with her solar sales assessor, Dr. Laurent, who she has an appointment with tomorrow who wanted to get her CBC rechecked to assess her chronic blood loss. She is saturating a pad every 2-3 hours. Her last hemoglobin was 11.6 on 04/24. Past Medical History Positives No date: Hypertension No current facility-administered medications for this encounter. Current Outpatient Medications Medication Sig Dispense Refill ??? azithromycin (ZITHROMAX Z-ISHAN) 250 MG Tablet 2 tab(s) daily for 1 day, then 1 tab(s) daily for days 2-5. 6 Tab 0 ??? ferrous sulfate 325 (65 Fe) MG Tablet Take 1 Tab by mouth 2 times daily. 180 Tab 0 ??? HYDROcodone-acetaminophen (NORCO) 5-325 MG Tablet Take 1 Tab by mouth every 6 hours as needed for Moderate or more severe pain. 10 Tab 0 ??? ibuprofen (MOTRIN) 600 MG Tablet Take 1 Tab by mouth every 6 hours as needed for Pain. 20 Tab 0 ??? ketorolac (TORADOL) 10 MG Tablet Take 1 Tab by mouth every 6 hours as needed for Mild or more severe pain. 15 Tab 0 ??? metroNIDAZOLE (FLAGYL) 500 MG Tablet Take 1 Tab by mouth 2 times daily. 28 Tab 0 Allergies Allergen Reactions ??? Penicillins Swelling Past Medical History Positives Diagnosis Date ??? Hypertension Past Surgical History: Procedure Laterality Date ??? CHOLECYSTECTOMY ??? OVARIAN CYST REMOVAL ??? TYMPANOSTOMY TUBE PLACEMENT Social History Socioeconomic History ??? Marital status: Single Spouse name: Not on file ??? Number of children: Not on file ??? Years of education: Not on file ??? Highest education level: Not on file Occupational History ??? Not on file Social Needs ??? Financial resource strain: Not on file ??? Food insecurity Worry: Not on file Inability: Not on file ??? Transportation needs Medical: Not on file Non-medical: Not on file Tobacco Use ??? Smoking status: Never Smoker ??? Smokeless tobacco: Never Used Substance and Sexual Activity ??? Alcohol use: Yes Comment: occasionally ??? Drug use: No ??? Sexual activity: Not on file Lifestyle ??? Physical activity Days per week: Not on file Minutes per session: Not on file ??? Stress: Not on file Relationships ??? Social connections Talks on phone: Not on file Gets together: Not on file Attends voodoo service: Not on file Active member of club or organization: Not on file Attends meetings of clubs or organizations: Not on file Relationship status: Not on file ??? Intimate partner violence Fear of current or ex partner: Not on file Emotionally abused: Not on file Physically abused: Not on file Forced sexual activity: Not on file Other Topics Concern ??? Not on file Social History Narrative ??? Not on file BP (!) 123/100 Pulse 88 Temp 97.9 ??F (36.6 ??C) (Tympanic) Resp 20 Ht 5' 5 (1.651 m) Wt300 lb (136.1 kg) LMP 12/16/2019 SpO2 100% BMI 49.92 kg/m?? Review of Systems Constitutional: Negative for chills, fatigue and fever. HENT: Negative for congestion and sore throat. Respiratory: Negative for cough, chest tightness, shortness of breath and wheezing. Cardiovascular: Negative for chest pain and palpitations. Gastrointestinal: Negative for abdominal pain, constipation, diarrhea, nausea and vomiting. Genitourinary: Positive for pelvic pain (cramping) and vaginal bleeding. Negative for dysuria, frequency, urgency, vaginal discharge and vaginal pain. Skin: Negative for color change and wound. Neurological: Negative for dizziness, light-headedness and headaches. Physical Exam Vitals signs and nursing note reviewed. Constitutional: General: She is not in acute distress. Appearance: She is well-developed. She is not diaphoretic. HENT: Head: Normocephalic and atraumatic. Eyes: Pupils: Pupils are equal, round, and reactive to light. Neck: Musculoskeletal: Normal range of motion and neck supple. Thyroid: No thyromegaly. Cardiovascular: Rate and Rhythm: Normal rate and regular rhythm. Heart sounds: Normal heart sounds. No murmur. Pulmonary: Effort: Pulmonary effort is normal. No respiratory distress. Breath sounds: Normal breath sounds. No wheezing, rhonchi or rales. Chest: Chest wall: No tenderness. Abdominal: General: Bowel sounds are normal. There is no distension. Palpations: Abdomen is soft. There is no mass. Tenderness: There is no abdominal tenderness. There is no guarding or rebound. Genitourinary: Comments: deferred Musculoskeletal: Normal range of motion. General: No tenderness. Skin: General: Skin is warm and dry. Coloration: Skin is not pale. Findings: No erythema or rash. Neurological: Mental Status: She is alert and oriented to person, place, and time. Cranial Nerves: No cranial nerve deficit. Psychiatric: Behavior: Behavior normal. Procedures Imaging Results None MDM Coding Clinical Impression 1. Menorrhagia H and H stable for patient. She will follow up with solar sales assessor tomorrow at 1415 appointment. Return to ED for worsening sxs The patient remained stable throughout their ED stay. My clinical impression was discussed with thepatient/family. Labs and radiology results were reviewed with them. I gave them the opportunity to ask questions, and addressed them as completely as possible given the information available at present. The therapeutic plan was discussed, advised to take medications as instructed, instructions weregiven and the importance of primary care follow up was stressed and encouraged. The patient/family voiced understanding of the plan, indications to return, and the need for follow up. Cosigned by Alexx Arceo MD at 04/27/2020 5:17 PM INSIDE SALES TERRITORY MANAGER DE SALES TERRITORY MANAGER DE SALES TERRITORY MANAGER * Susan Carrion RN - 04/27/2020 12:45 PM CST Patient presents to ED triage with complaint of vaginal bleeding. Patient states that she is on herperiod and it is heavier than normal. Patient states that she is saturating 2 pads every hour passing some clots. Patient states that she has history of being anemic and Her OBGYN sent her to have her blood count checked. Patient was also seen at [facility] on the 04/24 for a ruptured ovarian cyst. Patient left did leave [facility]. No distress ntoed. DE SALES TERRITORY MANAGER documented in this encounter Plan of Treatment Upcoming Encounters Date Type Department Care Team (Late st Contact Info) Description 08/07/2024 10:00 AM INSIDE SALES TERRITORY MANAGER Office Visit [facility] - Pulmonology & [facility] Medicine - [place] [address] [place] [address] Philippe Granados MD [address] [place] [address] documented as of this encounter Procedures Procedure Name Priority Date/Time Associated Diagnosis Comments EXTRA TUBES STAT 04/27/2020 1:07 PM INSIDE SALES TERRITORY MANAGER MINT GREEN, LI HEPARIN/SST TOP TUBE STAT 04/27/2020 1:07 PM INSIDE SALES TERRITORY MANAGER GOLD TOP TUBE STAT 04/27/2020 1:07 PM INSIDE SALES TERRITORY MANAGER BLUE TOP TUBE STAT 04/27/2020 1:07 PM INSIDE SALES TERRITORY MANAGER CBC WITH AUTO DIFFERENTIAL STAT 04/27/2020 1:07 PM INSIDE SALES TERRITORY MANAGER COMPLETE BLOOD COUNT (CBC) WITH DIFF STAT 04/27/2020 1:07 PM INSIDE SALES TERRITORY MANAGER documented in this encounter Results * MINT GREEN, LI HEPARIN/SST TOP TUBE (04/27/2020 1:07 PM INSIDE SALES TERRITORY MANAGER) Blood Venipuncture / Unknown 04/27/2020 1:07 PM INSIDE SALES TERRITORY MANAGER 04/27/2020 1:32 PM INSIDE SALES TERRITORY MANAGER us Nayan Mauricio PAC HEMATOLOGY ORDERABLE S Final Result [facility] [address] [place] [address] * Gold Top Tube (04/27/2020 1:07 PM INSIDE SALES TERRITORY MANAGER) Blood Venipuncture / Unknown 04/27/2020 1:07 PM INSIDE SALES TERRITORY MANAGER 04/27/2020 1:32 PM INSIDE SALES TERRITORY MANAGER us Nayan Hall Luly PAC CHEMISTRY ORDERABLES Final Result Performing Organization Address City/[facility]/ZIP Co de Phone Number [facility] [address] [place] [address] * Blue Top Tube (04/27/2020 1:07 PM INSIDE SALES TERRITORY MANAGER) Blood Venipuncture / Unknown 04/27/2020 1:07 PM INSIDE SALES TERRITORY MANAGER 04/27/2020 1:32 PM INSIDE SALES TERRITORY MANAGER us Nayan Hall Luly PAC HEMATOLOGY ORDERABLE S Final Result Performing Organization Address City/[facility]/ZIP Co de Phone Number [facility] [address] [place] [address] * (ABNORMAL) CBC with Auto Differential (04/27/2020 1:07 PM INSIDE SALES TERRITORY MANAGER) WBC 10.26 4.00 - 12.00 10(3)/mcL 04/27/2020 1:44 PM INSIDE SALES TERRITORY MANAGER [facility] RBC 4.84 3.80 - 5.30 10(6)/mcL 04/27/2020 1:44 PM INSIDE SALES TERRITORY MANAGER [facility] HEMOGLOBIN (HGB) 11.8(L) 12.0 - 15.8 g/dL 04/27/2020 1:44 PM INSIDE SALES TERRITORY MANAGER [facility] HEMATOCRIT (HCT) 39.1 36.0 - 47.0 % 04/27/2020 1:44 PM INSIDE SALES TERRITORY MANAGER [facility] MCV 80.8(L) 82.0 - 96.0 fL 04/27/2020 1:44 PM INSIDE SALES TERRITORY MANAGER [facility] MCH 24.4(L) 26.0 - 34.0 pg 04/27/2020 1:44 PM INSIDE SALES TERRITORY MANAGER [facility] MCHC 30.2(L) 31.0 - 36.0 g/dL 04/27/2020 1:44 PM INSIDE SALES TERRITORY MANAGER [facility] PLATELET COUNT 295 140 - 440 10(3)/mcL 04/27/2020 1:44 PM INSIDE SALES TERRITORY MANAGER [facility] RDW 15.1 11.8 - 15.5 % 04/27/2020 1:44 PM INSIDE SALES TERRITORY MANAGER [facility] MPV 12.0 9.7 - 12.4 fL 04/27/2020 1:44 PM INSIDE SALES TERRITORY MANAGER [facility] NEUTROPHILS 75.4(H) 47.0 - 73.0 % 04/27/2020 1:44 PM INSIDE SALES TERRITORY MANAGER [facility] LYMPHOCYTES 18.9 18.0 - 42.0 % 04/27/2020 1:44 PM INSIDE SALES TERRITORY MANAGER [facility] MONOCYTES 4.7 4.0 - 12.0 % 04/27/2020 1:44 PM INSIDE SALES TERRITORY MANAGER [facility] EOSINOPHILS 0.7 0.0 - 5.0 % 04/27/2020 1:44 PM INSIDE SALES TERRITORY MANAGER [facility] BASOPHILS 0.3 0.0 - 1.0 % 04/27/2020 1:44 PM [facility] ABSOLUTE NEUTROPHILS 7.74(H) 1.60 - 7.70 10(3)/mcL 04/27/2020 1:44 PM [facility] ABSOLUTE LYMPHOCYTES 1.94 1.30 - 3.20 10(3)/[facility] 04/27/2020 1:44 PM INSIDE SALES TERRITORY MANAGER [facility] ABSOLUTE MONOCYTES 0.48 0.20 - 1.00 10(3)/mcL 04/27/2020 1:44 PM INSIDE SALES TERRITORY MANAGER [facility] ABSOLUTE EOSINOPHIL 0.07 0.00 - 0.40 10(3)/[facility] 04/27/2020 1:44 PM [facility] ABSOLUTE BASOPHILS 0.03 0.00 - 0.10 10(3)/[facility] 04/27/2020 1:44 PM [facility] NRBC PER 100 WBC 0 04/27/20 20 1:44 PM [facility] Blood Venipuncture / Unknown 04/27/2020 1:07 PM INSIDE SALES TERRITORY MANAGER 04/27/2020 1:30 PM INSIDE SALES TERRITORY MANAGER us Nayan Mauricio PAC HEMATOLOGY ORDERABLE S Final Result [facility] [address] [facility] [place] [address] documented in this encounter Visit Diagnoses Diagnosis Menorrhagia- Primary Excessive or frequent menstruation documented in this encounter Care Teams Geological Manager Relationship Specialty Start Date End Date Damian Verde APRN, PLANT PHYSIOLOGY TEACHER [address] [place] [address] PCP - General Internal Medicine 04/27/20 10/04/21 documented as of this encounter
--- OUTSIDE RECORDS SUMMARY | 2024-06-13 23:55 | XMS_ITS | Encounter Summary ---
Author Organization [facility] Address [address] [place] [address] Phone Care Team Providers Care Welfare Director Name Role Phone Rox Bustillo APRN, CNP Primary Care Provider Philippe Granados MD Unavailable Reason for Visit * Reason Onset Date Comments ED Follow-up 07/15/2022 Urine Culture re sult Encounter Details Date Type Department Care Team (Late st Contact Info) Description 07/15/2022 Telephone [facility] Emergency [address] [place] [address] Precious Reinoso, RN [place] ED Follow-up (Urine Culture result) Social History Tobacco Use Types Packs/Day Years Used Date Smoking Tobacco: Never Smokeless Tobacco: Never Alcohol Use Standard Drinks/Week Comments Yes 0 (1 standard drink = 0.6 oz pur e alcohol) occasionally Sexually Active Control Partners Comments Not Currently Comments No Sex and Gender Information Value Date Recorded Sex Assigned at Not on file Legal Sex Female 10:18 PM CDT Gender Identity Not on file Sexual Orientation Not on file COVID-19 Exposure Response Date Recorded In the last 10 days, have nimisha pennington been in contact with someone who was confirmed or suspected to have Coronavirus/COVID-19? No / Unsure 07/11/2022 6:41 AM TURBINE BLADE ASSEMBLER documented as of this encounter Miscellaneous Notes * Telephone Encounter - Reinoso, Precious C, RN - 07/15/2022 5:53 AM CST Preliminary Urine Culture results reviewed by ELSIE Monroy. Patient had not been treated with antibiotics. Negative test. Allergy to PCN. No additional treatment needed at this time. INE BLADE ASSEMBLER documented in this encounter Plan of Treatment Upcoming Encounters Date Type Department Care Team (Late st Contact Info) Description 08/07/2024 10:00 AM TURBINE BLADE ASSEMBLER Office Visit [facility] - Pulmonology & Sleep Medicine - [place] [address] [place] [address] Philippe Granados MD [address] [place] [id number] documented as of this encounter Visit Diagnoses Not on filedocumented in this encounter Care Teams Welfare Director Relationship Specialty Start Date End Date Rox Bustillo APRN, TJ [address] [place] [address] PCP - General Advanced Practice Nurse 10/05/21 Philippe Granados MD [address] [place] [id number] Consulting Physician Pulmonary Disease 03/30/22 documented as of this encounter
--- OUTSIDE RECORDS SUMMARY | 2024-06-13 23:55 | XMS_ITS | Encounter Summary ---
Author Organization [facility] Address [address] [place] [address] Phone Care Team Providers Care English Adjunct Faculty Name Role Phone Iwona, Rox Horton APRN, CNP Primary Care Provider Philippe Granados MD Unavailable Reason for Visit * Reason Comments Abdominal Pain Cough Encounter Details Date Type Department Care Team (Late st Contact Info) Description 07/11/2022 6:46 AM CLEANER AND POLISHER - 07/11/2022 9:44 AM CLEANER AND POLISHER Emergency [facility] Emergency [address] [place] [address] Jody Rocha MD [address] [place] [address] Acute gastritis without hemorrhage, unspecified gastritis type Discharge Disposition: Discharged to home or Selfcare [...] Recorded In the last 10 days, have yo u been in contact with someone who was confirmed or suspected to have Coronavirus/COVID-19? No / Unsure 07/11/2022 6:41 AM CLEANER AND POLISHER documented as of this encounter Last Filed Vital Signs Vital Sign Reading Time Taken Comments Blood Pressure 159/75 07/11/2022 9:30 AM CLEANER AND POLISHER Pulse 77 07/11/2022 9:30 AM CLEANER AND POLISHER Temperature 36.4 ??C (97.6 ??F) 07/11/2022 6:43 AM CS T Respiratory Rate 15 07/11/2022 9:30 AM CLEANER AND POLISHER Oxygen Saturation 98% 07/11/2022 9:30 AM CLEANER AND POLISHER Inhaled Oxygen Concentration - - Weight 158.8 kg (350 lb) 07/11/2022 6:43 AM CLEANER AND POLISHER Height 165.1 cm (5' 5 ) 07/11/2022 6:43 AM CLEANER AND POLISHER Body Mass Index 58.24 07/11/2022 6:43 AM CLE[employer]ER AND POLISHER documented in this encounter Discharge Instructions * Discharge Instructions* Jody Rocha MD - 07/11/2022 9:20 AM CLE[employer]ER AND POLISHER Follow directions as explained Avoid drinking any alcohol for the next many weeks preferably for the next 4-6 months Take Prilosec 1 tablet twice daily for the next 5-7 days and then once daily. Take the Zofran as needed Diet as advised-clear liquids including ice water only for the next 12-24 hours, eat starchy foods only as advised for the next 2 days and advance diet as tolerated. NER AND POLISHER * Attachments The following attachments cannot be sent through Care Everywhere. * Gastritis Adult Anfd-bw-Regn (Tamazight) documented in this encounter Medications at Time of Discharge metoprolol Succinate (TOPROL-XL) 25 MG TABLET SR 24 HR Take 25 mg by mouth daily. triamterene-hydro chlorothiazide (MAXZIDE) 37.5-25 MG Tablet Take 1 Tablet by mouth daily. acyclovir (ZOVIRAX) 400 MG Tablet Take 400 mg by mouth every 4 hours (while awake). ferrous sulfate 325 (65 Fe) MG Tablet Take 1 Tab by mouth 2 times daily. 180 Tab 05/14/2017 3 HYDROcodone-aceta minophen (NORCO) 5-325 MG TabletIndications :Acute gastritis without hemorrhage, unspecified gastritis type Take 1 Tablet by mouth 2 times daily as needed for Mild or more severe pain. 8 Tablet 07/11/2022 3 omeprazole (PriLOSEC) 20 MG CAPSULE DELAYED RELEASE Take 1 Capsule by mouth daily. 30 Capsule 07/11/2022 3 ondansetron (ZOFRAN-ODT) 4 MG TABLET DISPERSIBLE Take 1 Tablet by mouth every 8 hours as needed for Nausea - 1st line for up to 5 days. 15 Tablet 07/11/2022 3 rOPINIRole (REQUIP) 1 MG Tablet Take 1 Tablet by mouth nightly. 90 Tablet 04/10/2022 3 traMADol (Ultram) 50 MG TabletIndications :Cervical strain, acute Take 1 Tablet by mouth every 8 hours as needed for Moderate or more severe pain. 12 Tablet 01/18/2022 3 documented as of this encounter ED Notes * Liya Du RN - 07/11/2022 9:41 AM CST Patient discharged. Discharge instructions and patient educational material reviewed with patient; questions and concerns addressed; patient verbalizes understanding, using teach back. Patient was given 3 prescriptions. Patient was informed no drinking alcohol, driving or operating heavy machinery while taking narcotics or muscle relaxants. Patient discharged per wheelchair mode with family as responsible green party. SL D/C'ed with Andreas cath intact. NER AND POLISHER * Teressa Jerez RN - 07/11/2022 9:07 AM CST Pt verbalizes understanding that the provider will be in shortly to speak with her about her results. Pt's father at bedside asking about pt home medications and if she can take her BP medications. Pt states she would like to eat with medication as well. Pt advised due to waiting to hear about results she should hold off on taking any medications or having anything to drink/eat at this time. Pt again verbalizes understanding and denies needing anything else at this time. NER AND POLISHER * Teressa Jerez RN - 07/11/2022 9:05 AM CST Pt medicated per provider orders. Pt educated on intended effects and side effects of medication and verbalized understanding, able to provide teach back of education. NER AND POLISHER * Liya Du RN - 07/11/2022 8:51 AM CST Pt requesting more pain medication. Dr. Rocha made aware. NER AND POLISHER * Jody Rocha MD - 07/11/2022 8:23 AM CST Chief Complaint Patient presents with ??? Abdominal Pain ??? Cough Patient is a 22-year-old white female with past medical history of hypertension and morbid obesity presents to ER for multiple problems including nausea vomiting and cough. Patient states that she has been vomiting for the last 2 days, but multiple episodes, and has diarrhea for the last 1 day. Patient also has hacking cough and noted a small amount of blood in small amount of sputum. She also complains of right upper abdominal pain that is radiating to the epigastric area. Patient notes she has a cholecystectomy about 2 years ago. She denies fever, chest pain or shortness of breath. No current facility-administered medications for this encounter. Current Outpatient Medications Medication Sig Dispense Refill ??? acyclovir (ZOVIRAX) 400 MG Tablet Take 400 mg by mouth every 4 hours (while awake). ??? ferrous sulfate 325 (65 Fe) MG Tablet Take 1 Tab by mouth 2 times daily. (Patient not taking: No sig reported) 180 Tab 0 ??? HYDROcodone-acetaminophen (NORCO) 5-325 MG Tablet Take 1 Tablet by mouth 2 times daily as needed for Mild or more severe pain. 8 Tablet 0 ??? metoprolol Succinate (TOPROL-XL) 25 MG TABLET SR 24 HR Take 25 mg by mouth daily. ??? omeprazole (PriLOSEC) 20 MG CAPSULE DELAYED RELEASE Take 1 Capsule by mouth daily. 30 Capsule 0 ??? ondansetron (ZOFRAN-ODT) 4 MG TABLET DISPERSIBLE Take 1 Tablet by mouth every 8 hours as neededfor Nausea - 1st line for up to 5 days. 15 Tablet 0 ??? rOPINIRole (REQUIP) 1 MG Tablet Take 1 Tablet by mouth nightly. 90 Tablet 0 ??? traMADol (Ultram) 50 MG Tablet Take 1 Tablet by mouth every 8 hours as needed for Moderate or more severe pain. 12 Tablet 0 ??? triamterene-hydrochlorothiazide (MAXZIDE) 37.5-25 MG Tablet Take 1 Tablet by mouth daily. Allergies Allergen Reactions ??? Penicillins Swelling Past [...] file Occupational History ??? Not on file Tobacco Use ??? Smoking status: Never ??? Smokeless tobacco: Never Vaping Use ??? Vaping Use: Never used Substance and Sexual Activity ??? Alcohol use: Yes Comment: occasionally ??? Drug use: No ??? Sexual activity: Not Currently Other Topics Concern ??? Not on file Social History Narrative ??? Not on file BP 150/67 Pulse 91 Temp 97.6 ??F (36.4 ??C) (Tympanic) Resp 16 Ht 5' 5 (1.651 m) Wt 350 lb (158.8 kg) LMP 05/04/2022 (Approximate) SpO2 99% BMI 58.24 kg/m?? Review of Systems Constitutional: Negative. HENT: Positive for congestion. Respiratory: Positive for cough. Cardiovascular: Negative for chest pain. Gastrointestinal: Negative. Genitourinary: Negative. Musculoskeletal: Negative. Skin: Negative. Neurological: Negative. Hematological: Negative. All other systems reviewed and are negative. Physical Exam Vitals and nursing note reviewed. Constitutional: Appearance: She is obese. Comments: Morbidly obese 22-year-old white female, in moderate discomfort. HENT: Head: Normocephalic. Cardiovascular: Rate and Rhythm: Normal rate and regular rhythm. Heart sounds: Normal heart sounds. Pulmonary: Effort: Pulmonary effort is normal. Breath sounds: Normal breath sounds. Abdominal: General: Bowel sounds are normal. Palpations: Abdomen is soft. Neurological: Mental Status: She is alert. Procedures Imaging Results XR CHEST SINGLE VIEW PORTABLE (Final result) Result time 07/11/22 08:33:31 Final result by Franklin Wilson MD (07/11/22 08:33:31) Impression: IMPRESSION: Somewhat limited examination without definite cardiopulmonary abnormality. Narrative: EXAM DESCRIPTION: XR CHEST SINGLE VIEW PORTABLE REASON FOR STUDY: right side pain that radiates to her Rt upper abd that started on Sunday with a cough this morning TECHNIQUE: One radiographic view of the chest acquired. COMPARISON: Chest x-ray 12/16/2019 FINDINGS: Somewhat limited examination due to patient's body habitus. LUNGS/PLEURA: Low lung volumes. Hazy appearance of the lower chest appears to be on the basis of overlying soft tissue. No definite consolidation or effusion. No pneumothorax. HEART/MEDIASTINUM: Heart size is normal. Normal mediastinal and hilar contours. HARDWARE/LINES/TUBES: None. BONES: No acute findings. OTHER: No other significant finding. THIS IS AN ELECTRONICALLY VERIFIED FINAL REPORT 07/11/2022 8:30 AM - Electronically signed by Franklin Wilson M.D. BC: MOSHE Report ID: [id number] Reading Location: [id number] US ABDOMEN LIMITED LEVEL 3 THREE ORGAN [id number] (Final result) Result time 07/11/22 08:13:02 Final result by Franklin Wilson MD (07/11/22 08:13:02) Impression: IMPRESSION: Cholecystectomy. No acute findings. Narrative: EXAM DESCRIPTION: US ABDOMEN LIMITED LEVEL 3 THREE ORGAN REASON FOR STUDY: Right Upper quadrant and epigastric pain TECHNIQUE: Ultrasound of the right upper quadrant of the abdomen was performed with grayscale and color doppler. COMPARISON: CT abdomen pelvis 11/29/2019 FINDINGS: PANCREAS: Very limited assessment of the pancreas, with no gross abnormality or duct dilation in the visualized portions. Significant portions of the body and tail are obscured by bowel gas, and the head is not well visualized. LIVER: The liver appears normal in echotexture and echogenicity. No focal lesion identified. The main portal vein is patent with antegrade flow. GALLBLADDER: Gallbladder is surgically absent. No abnormality identified in the gallbladder fossa. BILIARY: No intrahepatic or extrahepatic biliary dilation. Common bile duct measures 4 mm in diameter. RIGHT KIDNEY: Normal size, measuring 12.4 cm in length. Normal morphology. No hydronephrosis. OTHER: No other significant findings. THIS IS AN ELECTRONICALLY VERIFIED FINAL REPORT 07/11/2022 8:10 AM - Electronically signed by Franklin Wilson M.D. BC: MOSHE Report ID: [id number] Reading Location: [id number] Labs Reviewed CMP (COMPREHENSIVE METABOLIC PANEL) - Abnormal; Notable for the following components: Result Value CHLORIDE 99 (*) GLUCOSE 105 (*) BUN/CREATININE RATIO 27 (*) A/G RATIO 0.9 (*) ALKALINE PHOSPHATASE 120 (*) All other components within normal limits URINALYSIS REFLEX IF INDICATED BY ABNORMAL RESULTS - Abnormal; Notable for the following components: WBC ESTERASE 25 /ul (*) PROTEIN, RANDOM URINE 30 mg/dL (*) URINE BLOOD 50 /uL (*) BACTERIA, URINE Few (*) All other components within normal limits CBC WITH AUTO DIFFERENTIAL - Abnormal; Notable for the following components: MCV 80.4 (*) MCH 24.3 (*) MCHC 30.3 (*) NEUTROPHILS 74.8 (*) All other components within normal limits LIPASE - Normal MAGNESIUM (MG) - Normal CULTURE, URINE COMPLETE BLOOD COUNT (CBC) WITH DIFF Narrative: The following orders were created for panel order CBC w/ Diff. Procedure Abnormality Status --------- ------ CBC with Auto Differential[[id number]] Abnormal Final result Please view results for these tests on the individual orders. EXTRA TUBES Narrative: The following orders were created for panel order Extra Tubes. Procedure Abnormality Status --------- ------ Gold Top Tube[[id number]] Final result Lavender Top Tube[[id number]] Final result Please view results for these tests on the individual orders. UR TEST QUAL GOLD TOP TUBE LAVENDER TOP TUBE MDM Coding Clinical Impression 1. Acute gastritis without hemorrhage, unspecified gastritis type ED Course as of 07/11/22 0920 Tue Jul 11, 2022 0914 Labs reviewed, patient feeling better after 2nd dose of morphine. Patient noted she had several drinks of alcohol on Sunday which is 3 days ago and 1 day prior to onset of symptoms. Patient's labs and ultrasound were within normal limits. She did have some mild microcytic anemia but no increased white count or left shift. Discussed with patient in detail regarding management of acute gastritis, she will be given prescriptions for Prilosec and Zofran. Patient was advised on diet and the need to refrain from any alcoholintake for an extended period of time. Patient voiced her understanding. [KS] ED Course User Index [KS] Jody Rocha MD Kalugotla N Shivaram, MD NER AND POLISHER * Teressa Jerez RN - 07/11/2022 8:15 AM CST Pt finishing with xray at bedside. Pt verbalizes that her pain level did go down, but since she hasbeen moving for ultrasound and now xray her pain is back up. Pt is repositioned in bed and lights are turned off for comfort. Provider made aware of pt's pain. NER AND POLISHER * Liya Du RN - 07/11/2022 8:11 AM CST Patient is resting in room with call light at bedside. Patient informed about wait time and verbalizes understanding. Patient denies needs at this time and verbalizes understanding that RN will complete hourly rounding. NER AND POLISHER * Teressa Jerez RN - 07/11/2022 7:40 AM CST Pt placed on NBP and SPO2. Ultrasound at bedside and call light within reach. NER AND POLISHER * Teressa Jerez RN - 07/11/2022 7:29 AM CST Pt medicated per provider orders. Pt educated on intended effects and side effects of medication and verbalized understanding, able to provide teach back of education. NER AND POLISHER * Liya Du RN - 07/11/2022 7:[address] Rocha at bedside for patient assessment. NER AND POLISHER * Teressa Jerez RN - 07/11/2022 6:56 AM CST Pt placing herself in a gown and asked if she can provide a urine sample. Pt states she can not go right now, but is given a cup in the case that she can provide one. NER AND POLISHER * Teressa Jerez RN - 07/11/2022 6:43 AM CST Pt arrives to triage complaining of right side pain that radiates to her Rt upper abd that started on Sunday. Pt denies any urinary or bowel problems, but states her periods are irregular. Pt also states this morning she began to cough and saw a little blood not very much after she was done coughing. Pt does not appear to be in respiratory distress at this time. NER AND POLISHER NER AND POLISHER documented in this encounter Plan of Treatment Upcoming Encounters Date Type Department Care Team (Late st Contact Info) Description 08/07/2024 10:00 AM CLEANER AND POLISHER Office Visit [facility] - Pulmonology & Sleep Medicine - [place] [address] [facility] [place] [address] Philippe Granados MD [address] [place] [address] documented as of this encounter Procedures Procedure Name Priority Date/Time Associated Diagnosis Comments XR CHEST SINGLE VIEW PORTABLE STAT 07/11/2022 8:16 AM CLEANER AND POLISHER US ABDOMEN LIMITED LEVEL 3 THREE ORGAN STAT 07/11/2022 7:55 AM CLEANER AND POLISHER EXTRA TUBES STAT 07/11/2022 7:48 AM CLEANER AND POLISHER GOLD TOP TUBE STAT 07/11/2022 7:48 AM CLEANER AND POLISHER LAVENDER TOP TUBE STAT 07/11/2022 7:4 8 AM CLEANER AND POLISHER UR TEST QUAL STAT 07/11/2022 7:42 AM CLEANER AND POLISHER CBC WITH AUTO DIFFERENTIAL STAT 07/11/2022 7:30 AM CLEANER AND POLISHER MAGNESIUM (MG) STAT 07/11/2022 7:30 AM CLEANER AND POLISHER LIPASE STAT 07/11/2022 7:30 AM CLEANER AND POLISHER CMP (COMPREHENSIVE METABOLIC PANEL) STAT 07/11/2022 7:30 AM CLEANER AND POLISHER COMPLETE BLOOD COUNT (CBC) WITH DIFF STAT 07/11/2022 7:30 AM CLEANER AND POLISHER URINALYSIS REFLEX IF INDICATED BY ABNORMAL RESULTS STAT 07/11/2022 7:24 AM CLEANER AND POLISHER CULTURE, URINE STAT 07/11/2022 7:24 AM CLEANER AND POLISHER documented in this encounter Results * XR CHEST SINGLE VIEW PORTABLE (07/11/2022 8:16 AM CLEANER AND POLISHER) Anatomical Region Laterality Modality Chest N/A Digital Radiogra phy 07/11/2022 8:30 AM CLEANER AND POLISHER Impressions 07/11/2022 8:33 AM CLEANER AND POLISHER IMPRESSION: ?? Somewhat limited examination without definite cardiopulmonary abnormality. Narrative 07/11/2022 8:33 AM CLEANER AND POLISHER EXAM DESCRIPTION: ?? XR CHEST SINGLE VIEW PORTABLE REASON FOR STUDY: ?? right side pain that radiates to her Rt upper abd that started on Sunday with a cough this morning TECHNIQUE: ?? One ??radiographic view of the chest acquired. COMPARISON: Chest x-ray 12/16/2019 FINDINGS: Somewhat limited examination due to patient's body habitus. ?? LUNGS/PLEURA: ??Low lung volumes. ??Hazy appearance of the lower chest appears to be on the basis of overlying soft tissue. ??No definite consolidation or effusion. ??No pneumothorax. HEART/MEDIASTINUM: ?? Heart size is normal. Normal mediastinal and hilar contours. HARDWARE/LINES/TUBES: ?? None. BONES: ?? No acute findings. OTHER: ?? No other significant finding. THIS IS AN ELECTRONICALLY VERIFIED FINAL REPORT 07/11/2022 8:30 AM - Electronically signed by ??Franklin Wilson M.D. BC: MOSHE D: ??07/11/2022 8:30 AM T: ??07/11/2022 8:30 AM Report ID: [id number] Reading Location: ??[id number] Procedure Note Franklin Wilson MD - 07/11/2022 EXAM DESCRIPTION: XR CHEST SINGLE VIEW PORTABLE REASON FOR STUDY: right side pain that radiates to her Rt upper abd that started on Sunday with a cough this morning TECHNIQUE: One radiographic view of the chest acquired. COMPARISON: Chest x-ray 12/16/2019 FINDINGS: Somewhat limited examination due to patient's body habitus. LUNGS/PLEURA: Low lung volumes. Hazy appearance of the lower chest appears to be on the basis of overlying soft tissue. No definite consolidation or effusion. No pneumothorax. HEART/MEDIASTINUM: Heart size is normal. Normal mediastinal and hilar contours. HARDWARE/LINES/TUBES: None. BONES: No acute findings. OTHER: No other significant finding. THIS IS AN ELECTRONICALLY VERIFIED FINAL REPORT 07/11/2022 8:30 AM - Electronically signed by Franklin Wilson M.D. BC: MOSHE Report ID: [id number] Reading Location: [id number] IMPRESSION: Somewhat limited examination without definite cardiopulmonary abnormality. Clintjoshcristina Rocha MD IMG DIAGNOSTIC ORDERABLE S Final Result * US ABDOMEN LIMITED LEVEL 3 THREE ORGAN [id number] (07/11/2022 7:55 AM CLEANER AND POLISHER) Anatomical Region Laterality Modality Abdomen N/A Ultrasound 07/11/2022 8:10 AM CLEANER AND POLISHER Impressions 07/11/2022 8:13 AM CLEANER AND POLISHER IMPRESSION: ?? Cholecystectomy. ??No acute findings. Narrative 07/11/2022 8:13 AM CLEANER AND POLISHER EXAM DESCRIPTION: ?? US ABDOMEN LIMITED LEVEL 3 THREE ORGAN REASON FOR STUDY: ?? Right Upper quadrant and epigastric pain TECHNIQUE: Ultrasound of the right upper quadrant of the abdomen was performed with grayscale and color doppler. COMPARISON: ?? CT abdomen pelvis 11/29/2019 FINDINGS: PANCREAS: ?? Very limited assessment of the pancreas, with no gross abnormality or duct dilation in the visualized portions. ?? Significant portions of the body and tail are obscured by bowel gas, and the head is not well visualized. LIVER: ?? The liver appears normal in echotexture and echogenicity. ?? No focal lesion identified. The main portal vein is patent with antegrade flow. GALLBLADDER: ?? Gallbladder is surgically absent. ?? No abnormality identified in the gallbladder fossa. BILIARY: ?? No intrahepatic or extrahepatic biliary dilation. ??Common bile duct measures ?? 4 mm ??in diameter. RIGHT KIDNEY: Normal size, measuring 12.4 cm in length. ??Normal morphology. ??No hydronephrosis. OTHER: ?? No other significant findings. THIS IS AN ELECTRONICALLY VERIFIED FINAL REPORT 07/11/2022 8:10 AM - Electronically signed by ??Franklin Wilson M.D. BC: MOSHE D: ??07/11/2022 8:10 AM T: ??07/11/2022 8:10 AM Report ID: [id number] Reading Location: ??[id number] Procedure Note Franklin Wilson MD - 07/11/2022 EXAM DESCRIPTION: US ABDOMEN LIMITED LEVEL 3 THREE ORGAN REASON FOR STUDY: Right Upper quadrant and epigastric pain TECHNIQUE: Ultrasound of the right upper quadrant of the abdomen was performed with grayscale and color doppler. COMPARISON: CT abdomen pelvis 11/29/2019 FINDINGS: PANCREAS: Very limited assessment of the pancreas, with no gross abnormality or duct dilation in the visualized portions. Significant portions of the body and tail are obscured by bowel gas, and the head is not well visualized. LIVER: The liver appears normal in echotexture and echogenicity. No focal lesion identified. The main portal vein is patent with antegrade flow. GALLBLADDER: Gallbladder is surgically absent. No abnormality identified in the gallbladder fossa. BILIARY: No intrahepatic or extrahepatic biliary dilation. Common bile duct measures 4 mm in diameter. RIGHT KIDNEY: Normal size, measuring 12.4 cm in length. Normal morphology. No hydronephrosis. OTHER: No other significant findings. THIS IS AN ELECTRONICALLY VERIFIED FINAL REPORT 07/11/2022 8:10 AM - Electronically signed by Franklin Wilson M.D. BC: MOSHE Report ID: [id number] Reading Location: [id number] IMPRESSION: Cholecystectomy. No acute findings. us Jody Rocha MD [facility] US ORDERABLES Final Result * Lavender Top Tube (07/11/2022 7:48 AM CLEANER AND POLISHER) Blood No Phlebotomy Charged / Unknown 07/11/2022 7:48 AM CLEANER AND POLISHER 07/11/2022 7:48 AM CLEANER AND POLISHER us Jody Rocha MD HEMATOLOGY ORDERABLES Fi nal Result [facility] [address] [place] [address] * Gold Top Tube (07/11/2022 7:48 AM CLEANER AND POLISHER) Blood No Phlebotomy Charged / Unknown 07/11/2022 7:48 AM CLE[employer]ER AND POLISHER 07/11/2022 7:48 AM CLEANER AND POLISHER us Jody Rocha MD CHEMISTRY ORDERABLES Fin al Result Performing Organization Address City/[facility] Co de Phone Number [facility] [address] [place] [address] * Ur Test Qual (07/11/2022 7:42 AM CLEANER AND POLISHER) Pathologist [facility] PREG TEST,MONOCLONA L Negative 07/11/2022 7:59 AM CLEANER AND POLISHER [facility] Urine Non-Phlebotomy Collection / Unknown 07/11/2022 7:42 AM CLEANER AND POLISHER 07/11/2022 7:52 AM CLEANER AND POLISHER us Jody Rocha MD URINE ORDERABLES Final R esult Performing Organization Address [facility] de Phone Number [facility] [address] [place] [address] * (ABNORMAL) CBC with Auto Differential (07/11/2022 7:30 AM CLEANER AND POLISHER) [facility] WBC 9.30 4.00 - 12.00 10(3)/mcL 07/11/2022 7:51 AM CLEANER AND POLISHER [facility] RBC 5.14 3.80 - 5.30 10(6)/[facility] 07/11/2022 7:51 AM CLEANER AND POLISHER [facility] HEMOGLOBIN (HGB) 12.5 12.0 - 15.8 g/dL 07/11/2022 7:51 AM CLEANER AND POLISHER [facility] HEMATOCRIT (HCT) 41.3 36.0 - 47.0 % 07/11/2022 7:51 AM CLEANER AND POLISHER [facility] MCV 80.4(L) 82.0 - 96.0 fL 07/11/2022 7:51 AM CLEANER AND POLISHER [facility] MCH 24.3(L) 26.0 - 34.0 pg 07/11/2022 7:51 AM CLEANER AND POLISHER [facility] MCHC 30.3(L) 31.0 - 36.0 g/dL 07/11/2022 7:51 AM [facility] PLATELET COUNT 287 140 - 440 10(3)/[facility] 07/11/2022 7:51 AM [facility] RDW 15.5 11.8 - 15.5 % 07/11/2022 7:51 AM [facility] MPV 10.8 9.7 - 12.4 fL 07/11/2022 7:51 AM [facility] NEUTROPHILS 74.8(H) 47.0 - 73.0 % 07/11/2022 7:51 AM [facility] LYMPHOCYTES 19.0 18.0 - 42.0 % 07/11/2022 7:51 AM [facility] MONOCYTES 4.7 4.0 - 12.0 % 07/11/2022 7:51 AM [facility] EOSINOPHILS 1.2 0.0 - 5.0 % 07/11/2022 7:51 AM [facility] BASOPHILS 0.3 0.0 - 1.0 % 07/11/2022 7:51 AM [facility] [facility] ABSOLUTE NEUTROPHILS 6.95 1.60 - 7.70 10(3)/[facility] 07/11/2022 7:51 AM [facility] ABSOLUTE LYMPHOCYTES 1.77 1.30 - 3.20 10(3)/[facility] 07/11/2022 7:51 AM [facility] ABSOLUTE MONOCYTES 0.44 0.20 - 1.00 10(3)/[facility] 07/11/2022 7:51 AM [facility] ABSOLUTE EOSINOPHIL 0.11 0.00 - 0.40 10(3)/[facility] 07/11/2022 7:51 AM [facility] ABSOLUTE BASOPHILS 0.03 0.00 - 0.10 10(3)/[facility] 07/11/2022 7:51 AM [facility] NRBC PER 100 WBC 0 07/11/19 7:51 AM [facility] Blood Venipuncture / Unknown 07/11/2022 7:30 AM [employer] 07/11/2022 7:47 AM [employer] us Jody Rocha MD HEMATOLOGY ORDERABLES Fi nal Result Performing Organization Address City/[facility] Co de Phone Number [facility] [place] [address] * Magnesium (07/11/2022 7:30 AM [employer]) MAGNESIUM 2.0 1.8 - 2.5 mg/dL 07/11/2022 8:08 AM [facility] [employer] Blood Venipuncture / Unknown 07/11/2022 7:30 AM [employer] 07/11/2022 7:47 AM [employer] us Jody Rocha MD CHEMISTRY ORDERABLES Fin al Result Performing Organization Address [facility] Co de Phone Number [facility] [address] [place] [address] * Lipase (07/11/2022 7:30 AM [employer]) LIPASE 22.0 13 - 60 U/L 07/11/2022 8:08 AM [facility] [employer] Blood Venipuncture / Unknown 07/11/2022 7:30 AM [facility] [employer] 07/11/2022 7:47 AM [employer] us Jody Rocha MD CHEMISTRY ORDERABLES Fin al Result Performing Organization Address City/[facility] Co de Phone Number [facility] [address] [place] [address] * (ABNORMAL) CMP (07/11/2022 7:30 AM [employer]) SODIUM 137 136 - 144 mmol/L 07/11/2022 8:08 AM [employer] [facility] POTASSIUM 3.6 3.5 - 5.1 mmol/L 07/11/2022 8:08 AM [facility] CHLORIDE 99(L) 100 - 110 mmol/L 07/11/2022 8:08 AM [facility] CO2, VENOUS 28 22 - 32 mmol/L 07/11/2022 8:08 AM [facility] ANION GAP 13.6 8.0 - 20.0 mmol/L 07/11/2022 8:08 AM [facility] GLUCOSE 105(H) 70 - 99 mg/dL 07/11/2022 8:08 AM [facility] BUN 17 6 - 20 mg/dL 07/11/2022 8:08 AM [facility] CREATININE, BLOOD 0.64 0.60 - 1.10 mg/dL 07/11/2022 8:08 AM [facility] BUN/CREATININE RATIO 27(H) 12 - 20 ratio 07/11/2022 8:08 AM [facility] TOTAL PROTEIN 8.0 6.0 - 8.3 g/dL 07/11/2022 8:08 AM [facility] ALBUMIN 3.8 3.5 - 5.2 g/dL 07/11/2022 8:08 AM [facility] Comment: The colormetric methods used for the determination of Albumin may lead to falsely elevated test results in patients suffering from renal failure or insufficiency due to interference with other proteins. A/G RATIO 0.9(L) 1.0 - 2.0 07/11/2022 8:08 AM [facility] CALCIUM 9.3 8.9 - 10.3 mg/dL 07/11/2022 8:08 AM [facility] T BILI 0.3 <=1.2 mg/dL 07/11/2022 8:08 AM [facility] SGOT (AST) 19 <=32 U/L 07/11/2022 8:08 AM [facility] SGPT (ALT) 22 <=41 U/L 07/11/2022 8:08 AM [employer] [facility] ALKALINE PHOSPHATASE 120(H) 35 - 105 U/L 07/11/2022 8:08 AM [employer] [facility] GFR, ESTIMATED >60 >=60 07/11/2022 8:08 AM [facility] Comment: Creatinine Clearance is the preferred criteria for selecting drug dose adjustments in renally impaired patients. ??The GFR is provided as additional pertinent clinical information. GFR is reported in mL/min/1.73 sq m. Calculation based on the Chronic Kidney Disease Epidemiology Collaboration (CKD- EPI) equation refit without adjustment for race. GFR, EST. >60 >=60 023 8:08 AM [facility] GFR, EST. NONAFRICAN >60 >=60 07/11/2022 8:08 AM [employer] [facility] Blood Venipuncture / Unknown 07/11/2022 7:30 AM [employer] 07/11/2022 7:47 AM [employer] us Jody Rocha MD CHEMISTRY ORDERABLES Fin al Result [facility] [address] [place] [address] * Culture, Urine (07/11/2022 7:24 AM [employer]) CULTURE RESULTS ENTEROCOCCUS FAECALIS 07/14/2022 7:28 AM [facility] CULTURE RESULTS ALSO MIXED GROWTH OF DISTAL URETHRA CONTAMINANTS. 07/14/2022 7:28 AM [facility] Urine URINE SPECIMEN COLLECTION, CLEAN CATCH / Unknown Non-Phlebotomy Collection / Unknown 07/11/2022 7:24 AM [facility] [employer] 07/11/2022 7:47 AM [employer] Narrative [facility] - 07/14/2022 7:28 AM [employer] Susceptibility not performed on enterococcus species. ??Due to high achievable concentrations in urine, Ampicillin is the drug of choice for treating infections limited to the lower urinary tract (regardless of Vancomycin susceptibility). ??For allergic patients, Nitrofurantoin or a quinolone may be substituted. ??For epidemiological purposes only, a Vancomycin screen will be performed and reported if positive. Jody Rocha MD MICROBIOLOGY - GENERAL O RDERABLES Final Result [facility] [address] [address], [place] * (ABNORMAL) URINALYSIS REFLEX IF INDICATED BY ABNORMAL RESULTS (07/11/2022 7:24 AM [employer]) SPECIFIC GRAVITY 1.015 1.003 - 1.030 07/11/2022 8:15 AM [employer] [facility] URINE PH 6.0 5.0 - 9.0 07/11/2022 8:15 AM [facility] WBC ESTERASE 25 /ul(A) Negative 07/11/2022 8:15 AM [employer] [facility] NITRITE Negative Negative 07/11/2022 8:15 AM [employer] PROTEIN, RANDOM URINE 30 mg/dL(A) Negative 07/11/2022 8:15 AM [employer] [facility] URINE GLUCOSE, QUAL Negative Negative 07/11/2022 8:15 AM [employer] [facility] URINE KETONES Negative Negative 07/11/2022 8:15 AM [facility] UROBILINOGEN Normal Normal mg/dL 07/11/2022 8:15 AM [facility] URINE BLOOD 50 /uL(A) Negative jim/ul 07/11/2022 8:15 AM [employer] URINALYSIS COLOR Yellow 07/11/19 8:15 AM [employer] URINALYSIS CLARITY Clear 07/11/2022 8:15 AM [facility] WBC (Urine) 0-5 Negative, 0-5 /hpf 07/11/2022 8:15 AM [facility] URINE RBC'S 0-2 Negative, 0-2 /hpf 07/11/2022 8:15 AM [facility] EPITHELIAL CELLS Large amount squamous /lpf 07/11/2022 8:15 AM [employer] [facility] BACTERIA, URINE Few(A) Negative /hpf 07/11/2022 8:15 AM [employer] [facility] Urine URINE SPECIMEN COLLECTION, CLEAN CATCH / Unknown Non-Phlebotomy Collection / Unknown 07/11/2022 7:24 AM [facility] [employer] 07/11/2022 7:47 AM [employer] us Jody Rocha MD URINE ORDERABLES Final R esult [facility] [address] [place] [address] documented in this encounter Visit Diagnoses Diagnosis Acute gastritis without hemorrhage, unspecified gastritis type- Primary documented in this encounter Administered Medications Inactive Administered Medications - up to 3 most recent administrations Medication Order MAR Action Action Date Dose Rate Site morphine sulfate (PF) injection 2 mg 2 mg, Intravenous, ONCE, 1 dose, On Sun07/11/22 at 0800 Given 07/11/2022 7:31 AM [employer] 2 mg morphine sulfate (PF) injection 4 mg 4 mg, Intravenous, ONCE, 1 dose, On Sun07/11/22 at 0930 Given 07/11/2022 9:06 AM [employer] 4 mg ondansetron (ZOFRAN) injection 4 mg 4 mg, Intravenous, ONCE, 1 dose, On Sun07/11/22 at 0800 Given 07/11/2022 7:31 AM [employer] 4 mg pantoprazole (PROTONIX) injection 40 mg 40 mg, Intravenous, ONCE, 1 dose, On Sun07/11/22 at 0800, Administer over 3 Minutes, Indications: Stress Ulcer ProphylaxisIndications:Stre ss Ulcer Prophylaxis Given 07/11/2022 7:31 AM [employer] 40 mg sodium chloride 0.9 % 1,000 mL IV bolus 1,000 mL, Intravenous, ONCE, 1 dose, On Sun07/11/22 at 0800, Administer over 0.5 Hours New Bag 07/11/2022 7:35 AM [employer] 1,000 mL 2000 mL/hr documented in this encounter Active and Recently Administered Medications Times are shown in [employer]. Scheduled Medication Order 07/09/2022 07/10/2022 07/11/2022 morphine sulfate (PF) injection 2 mg (COMPLETED) 2 mg, Intravenous, ONCE, 1 dose, On Sun07/11/22 at 0800 0731 (Given - Provid er: Teressa Jerez RN) morphine sulfate (PF) injection 4 mg (COMPLETED) 4 mg, Intravenous, ONCE, 1 dose, On Sun07/11/22 at 0930 0906 (Given - Provid er: Teressa Jerez RN) ondansetron (ZOFRAN) injection 4 mg (COMPLETED) 4 mg, Intravenous, ONCE, 1 dose, On Sun07/11/22 at 0800 0731 (Given - Provid er: Teressa Jerez RN) pantoprazole (PROTONIX) injection 40 mg (COMPLETED) 40 mg, Intravenous, ONCE, 1 dose, On Sun07/11/22 at 0800, Administer over 3 Minutes, Indications: Stress Ulcer Prophylaxis 0731 (Given - Provid er: Teressa Jerez RN) sodium chloride 0.9 % 1,000 mL IV bolus (COMPLETED) 1,000 mL, Intravenous, ONCE, 1 dose, On Sun07/11/22 at 0800, Administer over 0.5 Hours 0735 (New Bag - Prov ider: Teressa Jerez RN)0822 (Stopped - Provider: Liya Du RN) documented in this encounter Care Teams English Adjunct Faculty Relationship Specialty Start Date End Date Rox Bustillo APRN, INVENTORY TAKER [address] [place] [address] PCP - General Advanced Practice Nurse 10/05/21 Philippe Granados MD [address] [place] [phone] Consulting Physician Pulmonary Disease 03/30/22 documented as of this encounter
--- OUTSIDE RECORDS SUMMARY | 2024-06-13 23:55 | XMS_ITS | Clinical Summary ---
Author Organization [facility] Address [address] [place] [address] Phone Care Team Providers Care Shellfish Harvester Name Role Phone Iwona, Rox Horton APRN, TJ Primary Care Provider Philippe Granados MD Unavailable Allergies Active Allergy Reactions Criticality Noted Date Comments Penicillins Swelling 07/21/2016 Medications metoprolol Succinate (TOPROL-XL) 25 MG TABLET SR 24 HR Take 25 mg by mouth daily. Active triamterene-hyd rochlorothiazid e (MAXZIDE) 37.5-25 MG Tablet Take 1 Tablet by mouth daily. Active Phentermine HCl 37.5 MG Tablet Take 37.5 mg by mouth every morning (before breakfast). Active Active Problems Problem Noted Date Diagnosed Date Restless legs syndrome (RLS) 03/30/2022 LEDA (obstructive sleep apnea) 10/20/2021 Morbid obesity 10/20/2021 Essential (primary) hypertension 10/20/2021 Social History Tobacco Use Types Packs/Day Years Used Date Smoking Tobacco: Never Smokeless Tobacco: Never Tobacco Cessation:Counseling Given: Not Answered Alcohol Use Standard Drinks/Week Comments Yes 0 (1 standard drink = 0.6 oz pur e alcohol) occasionally Sexually Active Control Partners Comments Not Currently Comments No Sex and Gender Information Value Date Recorded Sex Assigned at Not on file Legal Sex Female 10:18 PM CDT Gender Identity Not on file Sexual Orientation Not on file Last Filed Vital Signs Vital Sign Reading Time Taken Comments Blood Pressure 120/80 02/07/2024 10:21 AM CDT Pulse 90 02/07/2024 10:21 AM CDT Temperature 36.1 ??C (96.9 ??F) 02/07/2024 10:21 AM C DT Respiratory Rate 14 02/07/2024 10:21 AM CDT Oxygen Saturation 99% 02/07/2024 10:21 AM CDT Inhaled Oxygen Concentration - - Weight 117.5 kg (259 lb) 02/07/2024 10:21 AM CDT Height 165.1 cm (5' 5 ) 02/07/2024 10:21 AM CDT Body Mass Index 43.1 02/07/2024 10:21 AM CDT Plan of Treatment Upcoming Encounters Date Type Department Care Team (Late st Contact Info) Description 08/07/2024 10:00 AM BRIDAL SALES CONSULTANT Office Visit [facility] - Pulmonology & [facility] Medicine [facility] [address] [place] [address] Philippe Granados MD [address] [place] [address] Health Maintenance Due Date Last Done Comments Hepatitis C Virus (HCV) Screening 1998 Pap Smear 2019 Influenza Immunization (#1) 2024 04/09/2015 SARS-COV-2 Immunization ( season) 2024 09/19/2021, 08/26/2021 Respiratory Syncytial Virus (RSV) Immunization (Adult) (1 - 1-dose 75+ series) 2073 Hepatitis B Immunization Completed 999, 1998, 1998 DTaP/Tdap/Td Immunization Discontinued 2012, 03/03/2003, 02/03/2000, Additional history exists TdaP Immunization Completed 07/09/2012 Meningococcal Immunization (ACWY) Completed 11/26/2014, 07/09/2012 Human Papillomavirus (HPV) Immunization Completed 04/09/2015, 11/26/2014, 02/24/2013 Pneumococcal Immunization Combined Aged Out No longer eligible based on patient's age to complete this topic Rotavirus Immunization Aged Out No lo nger eligible based on patient's age to complete this topic Insurance MEDICAID [employer] Care Teams Shellfish Harvester Relationship Specialty Start Date End Date Rox Bustillo APRN, REPATCHER [address] [place] [address] PCP - General Advanced Practice Nurse 10/05/21 Philippe Granados MD [address] [place] [phone] Consulting Physician Pulmonary Disease 03/30/22
--- OUTSIDE RECORDS SUMMARY | 2024-06-13 23:55 | XMS_ITS | Encounter Summary ---
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
--- OUTSIDE RECORDS SUMMARY | 2024-06-13 23:55 | XMS_ITS | Encounter Summary ---
Author Organization [facility] Address [address] [place] [address] Phone Care Team Providers Care Chief Of Safety And Protection Name Role Phone Rox Bustillo APRN, CNP Primary Care Provider Encounter Details Date Type Department Care Team (Late st Contact Info) Description 11/16/2021 Telephone [facility]ology & Sleep Medicine [facility] [address] [place] [address] Philippe Granados MD [address] [place] [phone] Social History Tobacco Use Types Packs/Day Years [...] In the last 10 days, have yo aditi been in contact with someone who was confirmed or suspected to have Coronavirus/COVID-19? No / Unsure 11/02/2021 6:51 PM CDT documented as of this encounter Miscellaneous Notes * Addendum Note - Lanette Frye RN - 11/16/2021 8:35 AM CDTAddended by: LANETTE FRYE on: 11/16/2021 08:35 AM Modules accepted: Orders * Telephone Encounter - Lanette Frye RN - 11/16/2021 8:15 AM CDT Patient is aware and verbalizes understanding. Order placed and faxed to [facility] * Telephone Encounter - Lanette Frye RN - 11/16/2021 8:11 AM CDT SUMMARY: ?? Severe obstructive sleep apnea (G47.33). ?? Overall AHI=37.5/hr, Overall SDB index=38.9/hr. ?? Oximetry showed average sleep saturation of 92%, lowest SaO2 was 82% and her saturations were above 90% for 74.3% of the night. ?? Moderately increased Stage N1 sleep and lowered sleep efficiency. ?? Lateral anterior tibialis recording showed moderate periodic limb movements with 3.0 per hour resulting in arousal. ?? Sleep and respiration normalized at a CPAP setting of 6.0 cm of H2O. ?? Overall AHI at optimal setting=1.0/hr. ?? RECOMMENDATIONS: ?? Trial with Nasal CPAP 6.0 cm of H2O with heated humidifier and nasal Resmed Airfit N20 small mask. ?? She should follow up in 31-90 days to assess the efficacy and compliance with nasal CPAP. ?? Should the patient have difficulty tolerating PAP, consider surgical evaluation of the upper airway or a dental appliance should be considered. ?? Recommend evaluation for underlying causes of RLS and PLMD, including serum ferritin and iron. Consider trial with pharmacological agents for treatment for PLMD if hypersomnia persists despite good treatment of LEDA with PAP therapy symptoms warrant. ?? Obtain and maintain ideal body weight. ?? Avoid alcohol and other FISHING GUIDE depressants. documented in this encounter Plan of Treatment Upcoming Encounters Date Type Department Care Team (Late st Contact Info) Description 08/07/2024 10:00 AM AGRICULTURAL REAL ESTATE AGENT Office Visit [facility] - Pulmonology & Sleep Medicine [facility] [address] [place] [address] Philippe Granados MD [address] [place] [address] documented as of this encounter Visit Diagnoses Diagnosis LEDA (obstructive sleep apnea)- Primary Obstructive sleep apnea (adult) (pediatric) documented in this encounter Care Teams Chief Of Safety And Protection Relationship Specialty Start Date End Date Rox Bustillo APRN, TJ [address] [place] [address] PCP - General Advanced Practice Nurse 10/05/21 documented as of this encounter
--- OUTSIDE RECORDS SUMMARY | 2024-06-13 23:55 | XMS_ITS | Encounter Summary ---
Author Organization [facility] Address [address] [place] [address] Phone Care Team Providers Care Emergency Telecommunications Dispatcher Name Role Phone Iwona, Rox Horton APRN, CNP Primary Care Provider Philippe Granados MD Unavailable Reason for Visit * Reason Comments Abdominal Pain Encounter Details Date Type Department Care Team (Late st Contact Info) Description 06/14/2023 3:57 PM LEATHER BELT SHAPER - 06/14/2023 7:00 PM LEATHER BELT SHAPER Emergency [facility] [address] [place] [id number] Liya Hartman, PAC [address] [place] [address] Uterine polyp Discharge Disposition: Discharged to home or Selfcare [...] on file documented as of this encounter Last Filed Vital Signs Vital Sign Reading Time Taken Comments Blood Pressure 129/73 06/14/2023 6:55 PM LEATHER BELT SHAPER Pulse 100 06/14/2023 6:55 PM LEATHER BELT SHAPER Temperature 36.5 ??C (97.7 ??F) 06/14/2023 4:03 PM CS T Respiratory Rate 16 06/14/2023 6:55 PM LEATHER BELT SHAPER Oxygen Saturation 98% 06/14/2023 6:55 PM LEATHER BELT SHAPER Inhaled Oxygen Concentration - - Weight 127 kg (280 lb) 06/14/2023 4:03 PM LEATHER BELT SHAPER Height 165.1 cm (5' 5 ) 06/14/2023 4:03 PM LEATHER BELT SHAPER Body Mass Index 46.59 06/14/2023 4:03 PM LEATHER BELT SHAPER documented in this encounter Discharge Instructions * Discharge Instructions* Liya Hartman PAC - 06/14/2023 6:45 PM LEATHER BELT SHAPER Please follow up with your obgyn this week as scheduled. Return for reevaluation if your symptoms change or worsen. HER BELT SHAPER * Attachments The following attachments cannot be sent through Care Everywhere. * Pelvic Pain Female (Algerian) documented in this encounter Medications at Time of Discharge metoprolol Succinate (TOPROL-XL) 25 MG TABLET SR 24 HR Take 25 mg by mouth daily. triamterene-hydro chlorothiazide (MAXZIDE) 37.5-25 MG Tablet Take 1 Tablet by mouth daily. documented as of this encounter ED Notes * Diallo Goldman RN - 06/14/2023 6:58 PM CST Patient discharged. Discharge instructions and patient educational material reviewed with patient; questions and concerns addressed; patient verbalizes understanding, using teach back. Patient was given 0 prescriptions. Patient was informed no drinking alcohol, driving or operating heavy machinery while taking narcotics or muscle relaxants. Patient ambulatory to ER exit with a steady gait and friend as responsible democrat. SL D/C'ed with Andreas cath intact. Pt alert and oriented x 4 with respirations that are even and unlabored at tod . HER BELT SHAPER * Diallo Goldman RN - 06/14/2023 5:53 PM CST Patient is resting in room with call light at bedside. Patient informed about wait time and verbalizes understanding. Patient denies needs at this time and verbalizes understanding that RN will complete hourly rounding. HER BELT SHAPER * Liya Hartmann, PAC - 06/14/2023 4:58 PM CST Chief Complaint Patient presents with ??? Abdominal Pain HPI Maeve Ross is a 23 y.o. female who presents from home due to pelvic pain and pressure which has been occurring for the past two weeks. Patient states she has a hx of a large ovarian cyst in the past. She has not had a menstrual cycle for several months and states she normally has to take medication to cause menstruation but has not done this in awhile. She denies any dysuria, fever, vomiting, diarrhea, vaginal discharge. She states she had intercourse recently and had pain afterwards butnot during. PMH includes HTN. Her provider is Rox Bustillo. No current facility-administered medications for this encounter. Current Outpatient Medications Medication Sig Dispense Refill ??? metoprolol Succinate (TOPROL-XL) 25 MG TABLET SR 24 HR Take 25 mg by mouth daily. ??? triamterene-hydrochlorothiazide (MAXZIDE) 37.5-25 MG Tablet Take [...] Social History Narrative ??? Not on file Social Determinants of Health Financial Resource Needs: Not on file Food Insecurity Needs: Not on file Transportation Needs: Not on file Physical Activity: Not on file Stress: Not on file Social Integration: Not on file Intimate Partner Violence: Not on file Housing Stability: Not on file BP (!) 171/101 Pulse (!) 113 Temp 97.7 ??F (36.5 ??C) (Tympanic) Resp 17 Ht 5' 5 (1.651 m) Wt 280 lb (127 kg) LMP (LMP Unknown) SpO2 100% BMI 46.59 kg/m?? Review of Systems Constitutional: Negative for chills and fever. HENT: Negative for congestion, ear pain, rhinorrhea and sore throat. Eyes: Negative for discharge. Respiratory: Negative for cough, chest tightness, shortness of breath and wheezing. Cardiovascular: Negative for chest pain and palpitations. Gastrointestinal: Negative for abdominal pain, diarrhea, nausea and vomiting. Genitourinary: Positive for pelvic pain. Negative for difficulty urinating and menstrual problem. Musculoskeletal: Negative for arthralgias and myalgias. Skin: Negative for rash and wound. Neurological: Negative for dizziness, syncope and headaches. All other systems reviewed and are negative. Physical Exam Vitals and nursing note reviewed. Constitutional: General: She is not in acute distress. Appearance: She is well-developed. She is not diaphoretic. HENT: Head: Normocephalic and atraumatic. Right Ear: External ear normal. Left Ear: External ear normal. Eyes: Conjunctiva/sclera: Conjunctivae normal. Pupils: Pupils are equal, round, and reactive to light. Neck: Trachea: No tracheal deviation. Cardiovascular: Rate and Rhythm: Normal rate and regular rhythm. Heart sounds: Normal heart sounds. No murmur heard. Pulmonary: Effort: Pulmonary effort is normal. No respiratory distress. Breath sounds: Normal breath sounds. No wheezing or rales. Abdominal: General: Bowel sounds are normal. There is no distension. Palpations: Abdomen is soft. Tenderness: There is abdominal tenderness in the suprapubic area. There is no guarding or rebound. Musculoskeletal: General: Normal range of motion. Cervical back: Normal range of motion. Skin: General: Skin is warm and dry. Neurological: Mental Status: She is alert and oriented to person, place, and time. Cranial Nerves: No cranial nerve deficit. Labs Reviewed CMP (COMPREHENSIVE METABOLIC PANEL) - Abnormal; Notable for the following components: Result Value POTASSIUM 3.2 (*) GLUCOSE 125 (*) All other components within normal limits URINALYSIS REFLEX IF INDICATED BY ABNORMAL RESULTS - Abnormal; Notable for the following components: PROTEIN, RANDOM URINE 30 mg/dL (*) URINE BLOOD 25 /uL (*) BACTERIA, URINE Few (*) All other components within normal limits CBC WITH AUTO DIFFERENTIAL - Abnormal; Notable for the following components: RBC 5.46 (*) MCV 80.6 (*) ABSOLUTE NEUTROPHILS 7.71 (*) All other components within normal limits LIPASE - Normal COMPLETE BLOOD COUNT (CBC) WITH DIFF Narrative: The following orders were created for panel order CBC with Diff [id number]. Procedure Abnormality Status --------- ------ CBC with Auto Differential[[id number]] Abnormal Final result Please view results for these tests on the individual orders. EXTRA TUBES Narrative: The following orders were created for panel order Extra Tubes. Procedure Abnormality Status --------- ------ Blue Top Tube[[id number]] Final result Gold Top Tube[[id number]] Final result Please view results for these tests on the individual orders. UR TEST QUAL BLUE TOP TUBE GOLD TOP TUBE US PELVIS LIMITED WITH TRANSVAG & COLOR DOPPLER LMT-NON OB Final Result IMPRESSION: 1. Complex cyst within the left ovary measuring 3.4 cm. Documented blood flow to the left ovary. Recommend short-term interval follow-up ultrasound in 6-12 weeks. 2. Indeterminate focal area of hyperechogenicity within the endometrium measuring 5 mm with possible flow on color Doppler. This could represent a polyp. Recommend correlation with direct visualization. 3. Nonvisualized right ovary. . Extra Tubes Final Result CMP (Comprehensive Metabolic Panel) Final Result CBC with Diff [id number] Final Result Lipase [id number] Final Result URINALYSIS REFLEX IF INDICATED BY ABNORMAL RESULTS Final Result Ur Test Qual Final Result Procedures Recent Results (from the past 24 hour(s)) Ur Test Qual Result Value Ref Range PREG TEST,MONOCLONAL Negative CMP (Comprehensive Metabolic Panel) Result Value Ref Range SODIUM 138 136 - 145 mmol/L POTASSIUM 3.2 (L) 3.5 - 5.1 mmol/L CHLORIDE 100 98 - 107 mmol/L CO2, VENOUS 26 22 - 30 mmol/L ANION GAP 15.2 <18.0 mmol/L GLUCOSE 125 (H) 70 - 99 mg/dL BUN 13 5 - 18 mg/dL CREATININE, BLOOD 0.80 0.60 - 1.00 mg/dL BUN/CREATININE RATIO 16 12 - 20 ratio TOTAL PROTEIN 8.2 6.3 - 8.2 g/dL ALBUMIN 4.0 3.5 - 5.0 g/dL A/G RATIO 1.0 1.0 - 2.2 CALCIUM 9.7 8.7 - 10.5 mg/dL T BILI 0.3 0.2 - 1.2 mg/dL SGOT (AST) 17 5 - 34 U/L SGPT (ALT) 21 0 - 55 U/L ALKALINE PHOSPHATASE 116 40 - 150 U/L GFR, ESTIMATED >60 >=60 GFR, EST. >60 >=60 GFR, EST. NONAFRICAN >60 >=60 Lipase [id number] Result Value Ref Range LIPASE 35 8 - 78 U/L URINALYSIS REFLEX IF INDICATED BY ABNORMAL RESULTS Result Value Ref Range SPECIFIC GRAVITY 1.015 1.003 - 1.030 URINE PH 6.0 5.0 - 9.0 WBC ESTERASE Negative Negative NITRITE Negative Negative PROTEIN, RANDOM URINE 30 mg/dL (A) Negative URINE GLUCOSE, QUAL Negative Negative URINE KETONES Negative Negative UROBILINOGEN Normal Normal mg/dL URINE BLOOD 25 /uL (A) Negative jmi/ul URINALYSIS COLOR Yellow URINALYSIS CLARITY Clear WBC (Urine) Negative Negative, 0-5 /hpf URINE RBC'S 0-2 Negative, 0-2 /hpf EPITHELIAL CELLS Occasional /lpf BACTERIA, URINE Few (A) Negative /hpf CBC with Auto Differential Result Value Ref Range WBC 11.56 4.00 - 12.00 10(3)/mcL RBC 5.46 (H) 3.80 - 5.30 10(6)/mcL HEMOGLOBIN (HGB) 14.2 12.0 - 15.8 g/dL HEMATOCRIT (HCT) 44.0 36.0 - 47.0 % MCV 80.6 (L) 82.0 - 96.0 fL MCH 26.0 26.0 - 34.0 pg MCHC 32.3 31.0 - 36.0 g/dL PLATELET COUNT 300 140 - 440 10(3)/mcL RDW 14.5 11.8 - 15.5 % MPV 11.9 9.7 - 12.4 fL NEUTROPHILS 66.7 47.0 - 73.0 % LYMPHOCYTES 27.5 18.0 - 42.0 % MONOCYTES 4.8 4.0 - 12.0 % EOSINOPHILS 0.7 0.0 - 5.0 % BASOPHILS 0.3 0.0 - 1.0 % ABSOLUTE NEUTROPHILS 7.71 (H) 1.60 - 7.70 10(3)/mcL ABSOLUTE LYMPHOCYTES 3.18 1.30 - 3.20 10(3)/mcL ABSOLUTE MONOCYTES 0.55 0.20 - 1.00 10(3)/mcL ABSOLUTE EOSINOPHIL 0.08 0.00 - 0.40 10(3)/mcL ABSOLUTE BASOPHILS 0.04 0.00 - 0.10 10(3)/mcL NRBC PER 100 WBC 0 Imaging Results US PELVIS LIMITED WITH TRANSVAG & COLOR DOPPLER LMT-NON OB (Final result) Result time 06/14/23 17:35:44 Final result by Jamin Mccall MD (06/14/23 17:35:44) Impression: IMPRESSION: 1. Complex cyst within the left ovary measuring 3.4 cm. Documented blood flow to the left ovary. Recommend short-term interval follow-up ultrasound in 6-12 weeks. 2. Indeterminate focal area of hyperechogenicity within the endometrium measuring 5 mm with possible flow on color Doppler. This could represent a polyp. Recommend correlation with direct visualization. 3. Nonvisualized right ovary. . Narrative: EXAM DESCRIPTION: US PELVIS LIMITED WITH TRANSVAG and COLOR DOPPLER LMT-NON OB REASON FOR STUDY: History of ovarian cysts. Pelvic pain and pressure x2 weeks TECHNIQUE: Grayscale ultrasound of the pelvic contents was performed with transabdominal and transvaginal transducer. COMPARISON: 02/03/2019 FINDINGS: UTERUS: The uterus is anteverted. The uterus is homogenous in echotexture and measures 8.3 x 4.0 x 4.5 cm. Nabothian cysts are noted within the cervix. ENDOMETRIUM: The endometrium measures 6 mm in thickness. Irregular heterogeneous region of hyperechogenicity is noted within the endometrium measuring 0.4 x 0.5 x 0.2 cm. Possible small amount of blood flow is noted. RIGHT OVARY: Not visualized. LEFT OVARY: The left ovary measures 4.6 x 2.3 x 2.3 cm. There is documentation of color Doppler flow in the left ovary. Heterogeneous anechoic lesion within the left ovary measuring approximately 3.4 x 1.4 x 1.5 cm. There is documented blood flow along the periphery. PELVIC FLUID: Trace fluid within the posterior cul-de-sac. OTHER: No other significant findings. THIS IS AN ELECTRONICALLY VERIFIED FINAL REPORT 06/14/2023 5:33 PM - Electronically signed by Jamin Mccall M.D. AG: ZAIDA Report ID: [id number] Reading Location: [id number] [facility] Clinical Impression 1. Pelvic pain 2. Uterine polyp 3. Left ovarian cyst Disposition: Discharge Reviewed imaging findings with patient. She declined a pelvic exam stating she is seeing her obgyn this week. Encouraged her to return for reevaluation if sx change or worsen. Patient expressed understanding and agreement to the tx plan. Cosigned by Shawn Narayanan MD at 06/20/2023 6:03 AM LEATHER BELT SHAPER HER BELT SHAPER HER BELT SHAPER * Diallo Goldman, RN - 06/14/2023 4:35 PM CST Pt medicated per provider orders. Pt educated on intended effects and side effects of medication and verbalized understanding, able to provide teach back of education. HER BELT SHAPER * Page Khanna RN - 06/14/2023 4:08 PM CST Patient states that she has had pelvic pain and pressure for almost two weeks. 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 Patient denies N/V/D or bladder symptoms. HER BELT SHAPER documented in this encounter Plan of Treatment Upcoming Encounters Date Type Department Care Team (Late st Contact Info) Description 08/07/2024 10:00 AM LEATHER BELT SHAPER Office Visit [facility] - Pulmonology & Sleep Medicine [facility] [address] [place] [address] Philippe Granados MD [address] [place] [address] documented as of this encounter Procedures Procedure Name Priority Date/Time Associated Diagnosis Comments US PELVIS LIMITED WITH TRANSVAG & COLOR DOPPLER LMT-NON OB Stat with Interpretation 06/14/2023 5:16 PM LEATHER BELT SHAPER EXTRA TUBES STAT 06/14/2023 4:37 PM LEATHER BELT SHAPER GOLD TOP TUBE STAT 06/14/2023 4:37 PM LEATHER BELT SHAPER BLUE TOP TUBE STAT 06/14/2023 4:37 PM LEATHER BELT SHAPER URINALYSIS REFLEX IF INDICATED BY ABNORMAL RESULTS STAT 06/14/2023 4:29 PM LEATHER BELT SHAPER CBC WITH AUTO DIFFERENTIAL STAT 06/14/2023 4:29 PM LEATHER BELT SHAPER LIPASE STAT 06/14/2023 4:29 PM LEATHER BELT SHAPER CMP (COMPREHENSIVE METABOLIC PANEL) STAT 06/14/2023 4:29 PM LEATHER BELT SHAPER COMPLETE BLOOD COUNT (CBC) WITH DIFF STAT 06/14/2023 4:29 PM LEATHER BELT SHAPER UR TEST QUAL STAT 06/14/2023 4:28 PM LEATHER BELT SHAPER documented in this encounter Results * US PELVIS LIMITED WITH TRANSVAG & COLOR DOPPLER LMT-NON OB (06/14/2023 5:16 PM LEATHER BELT SHAPER) Anatomical Region Laterality Modality Abdomen N/A Ultrasound 06/14/2023 5:33 PM LEATHER BELT SHAPER Impressions 06/14/2023 5:35 PM LEATHER BELT SHAPER IMPRESSION: 1. ?? Complex cyst within the left ovary measuring 3.4 cm. ?? Documented blood flow to the left ovary. ??Recommend short-term interval follow-up ultrasound in 6-12 weeks. 2. ?? Indeterminate focal area of hyperechogenicity within the endometrium measuring 5 mm with possible flow on color Doppler. ?? This could represent a polyp. ??Recommend correlation with direct visualization. 3. ?? Nonvisualized right ovary. . Narrative 06/14/2023 5:35 PM LEATHER BELT SHAPER EXAM DESCRIPTION: ?? US PELVIS LIMITED WITH TRANSVAG and COLOR DOPPLER LMT-NON OB REASON FOR STUDY: ?? History of ovarian cysts. ??Pelvic pain and pressure x2 weeks TECHNIQUE: Grayscale ultrasound of the pelvic contents was performed with ??transabdominal and transvaginal ??transducer. ?? COMPARISON: 02/03/2019 FINDINGS: UTERUS: ?? The uterus is anteverted. ??The uterus is ?? homogenous ??in echotexture and measures ??8.3 x 4.0 x 4.5 ??cm. ?? Nabothian cysts are noted within the cervix. ENDOMETRIUM: The endometrium measures ??6 mm ??in thickness. ?? Irregular heterogeneous region of hyperechogenicity is noted within the endometrium measuring 0.4 x 0.5 x 0.2 cm. ??Possible small amount of blood flow is noted. RIGHT OVARY: Not visualized. LEFT OVARY: The left ovary measures ??4.6 x 2.3 x 2.3 ??cm. ??There is documentation of color Doppler flow in the left ovary. ?? Heterogeneous anechoic lesion within the left ovary measuring approximately 3.4 x 1.4 x 1.5 cm. ??There is documented blood flow along the periphery. PELVIC FLUID: ?? Trace fluid within the posterior cul-de-sac. OTHER: ?? No other significant findings. THIS IS AN ELECTRONICALLY VERIFIED FINAL REPORT 06/14/2023 5:33 PM - Electronically signed by ??Jamin Mccall M.D. AG: ZAIDA D: ??06/14/2023 5:33 PM T: ??06/14/2023 5:33 PM Report ID: [id number] Reading Location: ??[id number] Procedure Note Jamin Mccall MD - 06/14/2023 EXAM DESCRIPTION: US PELVIS LIMITED WITH TRANSVAG and COLOR DOPPLER LMT-NON OB REASON FOR STUDY: History of ovarian cysts. Pelvic pain and pressure x2 weeks TECHNIQUE: Grayscale ultrasound of the pelvic contents was performed with transabdominal and transvaginal transducer. COMPARISON: 02/03/2019 FINDINGS: UTERUS: The uterus is anteverted. The uterus is homogenous in echotexture and measures 8.3 x 4.0 x 4.5 cm. Nabothian cysts are noted within the cervix. ENDOMETRIUM: The endometrium measures 6 mm in thickness. Irregular heterogeneous region of hyperechogenicity is noted within the endometrium measuring 0.4 x 0.5 x 0.2 cm. Possible small amount of blood flow is noted. RIGHT OVARY: Not visualized. LEFT OVARY: The left ovary measures 4.6 x 2.3 x 2.3 cm. There is documentation of color Doppler flow in the left ovary. Heterogeneous anechoic lesion within the left ovary measuring approximately 3.4 x 1.4 x 1.5 cm. There is documented blood flow along the periphery. PELVIC FLUID: Trace fluid within the posterior cul-de-sac. OTHER: No other significant findings. THIS IS AN ELECTRONICALLY VERIFIED FINAL REPORT 06/14/2023 5:33 PM - Electronically signed by Jamin Mccall M.D. AG: ZAIDA Report ID: [id number] Reading Location: [id number] IMPRESSION: 1. Complex cyst within the left ovary measuring 3.4 cm. Documented blood flow to the left ovary. Recommend short-term interval follow-up ultrasound in 6-12 weeks. 2. Indeterminate focal area of hyperechogenicity within the endometrium measuring 5 mm with possible flow on color Doppler. This could represent a polyp. Recommend correlation with direct visualization. 3. Nonvisualized right ovary. . us Liya Lynn Page PAC IMG US ORDERABLES Final Resu lt * Gold Top Tube (06/14/2023 4:37 PM LEATHER BELT SHAPER) Blood No Phlebotomy Charged / Unknown 06/14/2023 4:37 PM LEATHER BELT SHAPER 06/14/2023 4:37 PM LEATHER BELT SHAPER us Liya Lynn Page PAC CHEMISTRY ORDERABLES Final R esult [facility] [address] [place] [address] * Blue Top Tube (06/14/2023 4:37 PM LEATHER BELT SHAPER) Blood No Phlebotomy Charged / Unknown 06/14/2023 4:37 PM LEATHER BELT SHAPER 06/14/2023 4:37 PM LEATHER BELT SHAPER Liya Lynn Page PAC HEMATOLOGY ORDERABLES Final Result Performing Organization Address City/[facility]/ZIP Co de Phone Number [facility] [address] [place] [address] * (ABNORMAL) CBC with Auto Differential (06/14/2023 4:29 PM LEATHER BELT SHAPER) WBC 11.56 4.00 - 12.00 10(3)/mcL 06/14/2023 4:39 PM LEATHER BELT SHAPER [facility] RBC 5.46(H) 3.80 - 5.30 10(6)/mcL 06/14/2023 4:39 PM LEATHER BELT SHAPER [facility] HEMOGLOBIN (HGB) 14.2 12.0 - 15.8 g/dL 06/14/2023 4:39 PM LEATHER BELT SHAPER [facility] HEMATOCRIT (HCT) 44.0 36.0 - 47.0 % 06/14/2023 4:39 PM LEATHER BELT SHAPER [facility] MCV 80.6(L) 82.0 - 96.0 fL 06/14/2023 4:39 PM LEATHER BELT SHAPER [facility] MCH 26.0 26.0 - 34.0 pg 06/14/2023 4:39 PM LEATHER BELT SHAPER [facility] MCHC 32.3 31.0 - 36.0 g/dL 06/14/2023 4:39 PM LEATHER BELT SHAPER [facility] PLATELET COUNT 300 140 - 440 10(3)/mcL 06/14/2023 4:39 PM LEATHER BELT SHAPER [facility] RDW 14.5 11.8 - 15.5 % 06/14/2023 4:39 PM [facility] MPV 11.9 9.7 - 12.4 fL 06/14/2023 4:39 PM [facility] NEUTROPHILS 66.7 47.0 - 73.0 % 06/14/2023 4:39 PM [facility] LYMPHOCYTES 27.5 18.0 - 42.0 % 06/14/2023 4:39 PM [facility] MONOCYTES 4.8 4.0 - 12.0 % 06/14/2023 4:39 PM [facility] EOSINOPHILS 0.7 0.0 - 5.0 % 06/14/2023 4:39 PM [facility] BASOPHILS 0.3 0.0 - 1.0 % 06/14/2023 4:39 PM [facility] ABSOLUTE NEUTROPHILS 7.71(H) 1.60 - 7.70 10(3)/[facility] 06/14/2023 4:39 PM [facility] ABSOLUTE LYMPHOCYTES 3.18 1.30 - 3.20 10(3)/[facility] 06/14/2023 4:39 PM [facility] ABSOLUTE MONOCYTES 0.55 0.20 - 1.00 10(3)/[facility] 06/14/2023 4:39 PM [facility] ABSOLUTE EOSINOPHIL 0.08 0.00 - 0.40 10(3)/[facility] 06/14/2023 4:39 PM [facility] ABSOLUTE BASOPHILS 0.04 0.00 - 0.10 10(3)/[facility] 06/14/2023 4:39 PM [facility] NRBC PER 100 WBC 0 06/14/19 24 4:39 PM [facility] Blood Venipuncture / Unknown 06/14/2023 4:29 PM LEATHER BELT SHAPER 06/14/2023 4:35 PM LEATHER BELT SHAPER us Liya Lynn Page PAC HEMATOLOGY ORDERABLES Final Result [facility] [address] [place] [address] * (ABNORMAL) URINALYSIS REFLEX IF INDICATED BY ABNORMAL RESULTS (06/14/2023 4:29 PM LEATHER BELT SHAPER) SPECIFIC GRAVITY 1.015 1.003 - 1.030 06/14/2023 5:13 PM [facility] URINE PH 6.0 5.0 - 9.0 06/14/2023 5:13 PM [facility] WBC ESTERASE Negative Negative 06/14/2023 5:13 PM [facility] NITRITE Negative Negative 06/14/2023 5:13 PM [facility] PROTEIN, RANDOM URINE 30 mg/dL(A) Negative 06/14/2023 5:13 PM [facility] URINE GLUCOSE, QUAL Negative Negative 06/14/2023 5:13 PM [facility] URINE KETONES Negative Negative 06/14/2023 5:13 PM [facility] UROBILINOGEN Normal Normal mg/dL 06/14/2023 5:13 PM [facility] URINE BLOOD 25 /uL(A) Negative jim/ul 06/14/2023 5:13 PM [facility] URINALYSIS COLOR Yellow 06/14/19 24 5:13 PM [facility] URINALYSIS CLARITY Clear 06/14/2023 5:13 PM [facility] WBC (Urine) Negative Negative, 0-5 /hpf 06/14/2023 5:13 PM [facility] URINE RBC'S 0-2 Negative, 0-2 /hpf 06/14/2023 5:13 PM [facility] EPITHELIAL CELLS Occasional /lpf 06/14/19 24 5:13 PM [facility] BACTERIA, URINE Few(A) Negative /hpf 06/14/2023 5:13 PM [facility] Urine URINE SPECIMEN COLLECTION, CLEAN CATCH / Unknown Non-Phlebotomy Collection / Unknown 06/14/2023 4:29 PM LEATHER BELT SHAPER 06/14/2023 4:35 PM LEATHER BELT SHAPER us Liya [place] Page PAC URINE ORDERABLES Final Resul t [facility] [address] [place] [address] * Lipase [id number] (06/14/2023 4:29 PM LEATHER BELT SHAPER) LIPASE 35 8 - 78 U/L 06/14/2023 5:05 PM LEATHER BELT SHAPER [facility] Blood Venipuncture / Unknown 06/14/2023 4:29 PM LEATHER BELT SHAPER 06/14/2023 4:35 PM LEATHER BELT SHAPER Liya Lynn Page PAC CHEMISTRY ORDERABLES Final R esult Performing Organization Address City/[facility]/ZIP Co de Phone Number [facility] [address] [place] [address] * (ABNORMAL) CMP (Comprehensive Metabolic Panel) (06/14/2023 4:29 PM LEATHER BELT SHAPER) SODIUM 138 136 - 145 mmol/L 06/14/2023 5:05 PM [facility] POTASSIUM 3.2(L) 3.5 - 5.1 mmol/L 06/14/2023 5:05 PM [facility] CHLORIDE 100 98 - 107 mmol/L 06/14/2023 5:05 PM [facility] CO2, VENOUS 26 22 - 30 mmol/L 06/14/2023 5:05 PM [facility] ANION GAP 15.2 <18.0 mmol/L 06/14/2023 5:05 PM [facility] GLUCOSE 125(H) 70 - 99 mg/dL 06/14/2023 5:05 PM [facility] BUN 13 5 - 18 mg/dL 06/14/2023 5:05 PM [facility] CREATININE, BLOOD 0.80 0.60 - 1.00 mg/dL 06/14/2023 5:05 PM [facility] BUN/CREATININE RATIO 16 12 - 20 ratio 06/14/2023 5:05 PM [facility] TOTAL PROTEIN 8.2 6.3 - 8.2 g/dL 06/14/2023 5:05 PM [facility] ALBUMIN 4.0 3.5 - 5.0 g/dL 06/14/2023 5:05 PM [facility] A/G RATIO 1.0 1.0 - 2.2 06/14/2023 5:05 PM [facility] CALCIUM 9.7 8.7 - 10.5 mg/dL 06/14/2023 5:05 PM [facility] T BILI 0.3 0.2 - 1.2 mg/dL 06/14/2023 5:05 PM [facility] SGOT (AST) 17 5 - 34 U/L 06/14/2023 5:05 PM [facility] SGPT (ALT) 21 0 - 55 U/L 06/14/2023 5:05 PM [facility] ALKALINE PHOSPHATASE 116 40 - 150 U/L 06/14/2023 5:05 PM [facility] GFR, ESTIMATED >60 >=60 06/14/2023 5:05 PM [facility] Comment: Creatinine Clearance is the preferred criteria for selecting drug dose adjustments in renally impaired patients. ??The GFR is provided as additional pertinent clinical information. GFR is reported in mL/min/1.73 sq m. Calculation based on the Chronic Kidney Disease Epidemiology Collaboration (CKD- EPI) equation refit without adjustment for race. GFR, EST. >60 >=60 024 5:05 PM [facility] GFR, EST. NONAFRICAN >60 >=60 06/14/2023 5:05 PM [facility] Blood Venipuncture / Unknown 06/14/2023 4:29 PM [facility] 06/14/2023 4:35 PM [facility] us Liya Hernandesn Page PAC CHEMISTRY ORDERABLES Final R esult [facility] [address] [place] [address] * Ur Test Qual (06/14/2023 4:28 PM [facility]) PREG TEST,MONOCLONA L Negative 06/14/2023 5:08 PM [facility] [employer] Urine Non-Phlebotomy Collection / Unknown 06/14/2023 4:28 PM [facility] [employer] [facility] 06/14/2023 4:54 PM [employer] us Liya Hernandesn Page PAC URINE ORDERABLES Final Resul t [facility] [address] [place] [address] documented in this encounter Visit Diagnoses Diagnosis Pelvic pain- Primary Unspecified symptom associated with female genital organs Uterine polyp Polyp of corpus uteri Left ovarian cyst Other and unspecified ovarian cyst documented in this encounter Administered Medications Inactive Administered Medications - up to 3 most recent administrations Medication Order MAR Action Action Date Dose Rate Site HYDROcodone-acetaminophen (NORCO) 5-325 MG per tablet 1 Tablet 1 Tablet, Oral, ONCE, 1 dose, On Fara 06/14/23 at 1800, Maximum dose of acetaminophen is 4000 mg from all sources in 24 hours.If pain not effectively managed, then contact provider to discuss possibly 1) adding scheduled opioid dosing or non-opioid pain treatments, 2) increasing dosage, or 3) changing to SENIOR STAFF ACCOUNTANT. Given 06/14/2023 6:00 PM [facility] [employer] [facility] 1 Tablet ketorolac (TORADOL) injection 30 mg 30 mg, Intravenous, ONCE, 1 dose, On Fara 06/14/23 at 1630 Given 06/14/2023 4:33 PM [facility] [employer] [facility] 30 mg potassium chloride SA (KLORCON M) tablet 20 mEq 20 mEq, Oral, ONCE, 1 dose, On Fara 06/14/23 at 1800, Do Not Crush Given 06/14/2023 6:00 PM [facility] [employer] [facility] 20 mEq documented in this encounter Active and Recently Administered Medications Times are shown in [facility] [employer]. Scheduled Medication Order 06/12/2023 06/13/2023 06/14/2023 HYDROcodone-acetaminophen (NORCO) 5-325 MG per tablet 1 Tablet (COMPLETED) 1 Tablet, Oral, ONCE, 1 dose, On Fara 06/14/23 at 1800, Maximum dose of acetaminophen is 4000 mg from all sources in 24 hours.If pain not effectively managed, then contact provider to discuss possibly 1) adding scheduled opioid dosing or non-opioid pain treatments, 2) increasing dosage, or 3) changing to SENIOR STAFF ACCOUNTANT. 1800 (Given - Provid er: Diallo Goldman RN) ketorolac (TORADOL) injection 30 mg (COMPLETED) 30 mg, Intravenous, ONCE, 1 dose, On Fara 06/14/23 at 1630 1633 (Given - Provid er: Diallo Goldman RN) potassium chloride SA (KLORCON M) tablet 20 mEq (COMPLETED) 20 mEq, Oral, ONCE, 1 dose, On Fara 06/14/23 at 1800, Do Not Crush 1800 (Given - Provid er: Diallo Goldman RN) documented in this encounter Care Teams Emergency Telecommunications Dispatcher Relationship Specialty Start Date End Date Rox Bustillo, MILITARY PERSONNEL SPECIALIST, [employer] [address] [place] [address] PCP - General Advanced Practice Nurse 10/05/21 Philippe Granados MD [address] [place] [id number] Consulting Physician Pulmonary Disease 03/30/22 documented as of this encounter
--- OUTSIDE RECORDS SUMMARY | 2024-06-13 23:55 | XMS_ITS | Encounter Summary ---
Author Organization [facility] Address [address] [place] [address] Phone Care Team Providers Care Patch Washer Name Role Phone Provider, None Primary Care Provider Unavailabl e Reason for Visit * Reason Comments Abdominal Pain Encounter Details Date Type Department Care Team (Late st Contact Info) Description 11/28/2019 9:50 PM CDT - 11/29/2019 3:22 AM CDT Emergency [facility] Emergency [address] [place] [address] Fabian Avila MD [address] [place] [address] Lower abdominal pain Discharge Disposition: Discharged to home or Selfcare Social History Tobacco Use Types Packs/Day Years Used Date Smoking Tobacco: Never Smokeless Tobacco: Never Alcohol Use Standard Drinks/Week Comments No 0 (1 standard drink = 0.6 oz pur e alcohol) Comments No Sex and Gender Information Value Date Recorded Sex Assigned at Not on file Legal Sex Female 10:18 PM CDT Gender Identity Not on file Sexual Orientation Not on file COVID-19 Exposure Response Date Recorded In the last month, have you been in contact with someone who was confirmed or suspected to have Coronavirus / COVID-19? No / Unsure 11/28/2019 9:44 PM CDT documented as of this encounter Last Filed Vital Signs Vital Sign Reading Time Taken Comments Blood Pressure 118/73 11/29/2019 2:30 AM CDT Pulse 109 11/29/2019 2:30 AM CDT Temperature 36.5 ??C (97.7 ??F) 11/28/2019 9:44 PM CD T Respiratory Rate 16 11/28/2019 9:44 PM CDT Oxygen Saturation 99% 11/29/2019 2:30 AM CDT Inhaled Oxygen Concentration - - Weight 136.1 kg (300 lb) 11/28/2019 9:44 PM CDT Height 165.1 cm (5' 5 ) 11/28/2019 9:44 PM CDT Body Mass Index 49.92 11/28/2019 9:44 PM CDT documented in this encounter Discharge Instructions * Attachments The following attachments cannot be sent through Care Everywhere. * Abdominal Pain, Unknown Cause, (Female) (Trinidadian) documented in this encounter Medications at Time of Discharge ferrous sulfate 325 (65 Fe) MG Tablet [...] needed for Pain. 20 Tab 07/25/2017 01/18/2022 metroNIDAZOLE (FLAGYL) 500 MG Tablet Take 1 Tab by mouth 2 times daily. 28 Tab 04/29/2018 01/18/2022 documented as of this encounter ED Notes * Tiffanie Masters RN - 11/29/2019 3:21 AM CDT Patient discharged. Discharge instructions and patient educational material reviewed with patient; questions and concerns addressed; patient verbalizes understanding, using teach back. Patient ambulated out of ed with steady gait with all personal belongings. * Derek Brown RN - 11/29/2019 2:54 AM CDT Report given to Tiffanie TREADWELL * Derek Brown RN - 11/29/2019 1:17 AM CDT PT to CT * Derek Brown RN - 11/29/2019 12:30 AM CDT PT resting in stretcher. Reports no nausea or abd pain. * Derek Brown RN - 11/28/2019 11:32 PM CDT Pt medicated per provider orders. Pt educated on intended effects and side effects of medication and verbalized understanding, able to provide teach back of education. * Fabian Avila MD - 11/28/2019 11:09 PM CDT Chief Complaint Patient presents with ??? Abdominal Pain Patient is a 19-year-old female who presents emergency room complaining of lower abdominal pain. Patient states the pain began approximately 2 hr prior to arrival. Patient denies any physical activity when it developed. She states she has had some nausea and vomiting associated with this. She denies any constipation or diarrhea and had a normal bowel movement earlier today. She denies any dysuriaor urinary frequency. She has had no fever or chills. She denies any hematuria or hematochezia. Current Facility-Administered Medications Medication Dose Route Frequency Provider Last Rate Last Dose ??? dicyclomine (BENTYL) injection 20 mg 20 mg Intramuscular Once Fabian Avila MD Current Outpatient Medications Medication Sig Dispense Refill ??? ferrous sulfate 325 (65 Fe) MG [...] needed for Pain. 20 Tab 0 ??? metroNIDAZOLE (FLAGYL) 500 MG Tablet Take 1 Tab by mouth 2 times daily. 28 Tab 0 Allergies Allergen Reactions ??? Penicillins Swelling History reviewed. No pertinent past medical history. Past Surgical History: Procedure Laterality Date ??? [...] resource strain: Not on file ??? Food insecurity: Worry: Not on file Inability: Not on file ??? Transportation needs: Medical: Not on file Non-medical: Not on file Tobacco Use ??? Smoking status: Never Smoker ??? Smokeless tobacco: Never Used Substance and Sexual Activity ??? Alcohol use: No ??? Drug use: No ??? Sexual activity: Not on file Lifestyle ??? Physical activity: Days per week: Not on file Minutes per session: Not on file ??? Stress: Not on file Relationships ??? Social connections: Talks on phone: Not on file Gets together: Not on file Attends mormonism service: Not on file Active member of club or organization: Not on file Attends meetings of clubs or organizations: Not on file Relationship status: Not on file ??? Intimate partner violence: Fear of current or ex partner: Not on file Emotionally abused: Not on file Physically abused: Not on file Forced sexual activity: Not on file Other Topics Concern ??? Not on file Social History Narrative ??? Not on file BP (!) 154/93 Pulse 107 Temp 97.7 ??F (36.5 ??C) (Temporal) Resp 16 Ht 5' 5 (1.651 m) Wt300 lb (136.1 kg) LMP 11/07/2019 (Approximate) SpO2 99% BMI 49.92 kg/m?? Review of Systems Constitutional: Negative for activity change, appetite change, chills and fever. HENT: Negative for congestion, ear pain, rhinorrhea, sore throat and trouble swallowing. Eyes: Negative for pain and visual disturbance. Respiratory: Negative for cough, shortness of breath and wheezing. Cardiovascular: Negative for chest pain. Gastrointestinal: Positive for abdominal pain (Lower), nausea and vomiting. Negative for abdominal distention, blood in stool, constipation and diarrhea. Genitourinary: Negative for difficulty urinating, dysuria, frequency, hematuria, urgency, vaginal bleeding, vaginal discharge and vaginal pain. Musculoskeletal: Negative for arthralgias and back pain. Skin: Negative for pallor. Neurological: Negative for headaches. Hematological: Negative for adenopathy. Psychiatric/Behavioral: Negative for confusion. All other systems reviewed and are negative. Physical Exam Vitals signs and nursing note reviewed. Constitutional: General: She is not in acute distress. Appearance: She is well-developed. She is not diaphoretic. HENT: Head: Normocephalic and atraumatic. Right Ear: External ear normal. Left Ear: External ear normal. Eyes: Conjunctiva/sclera: Conjunctivae normal. Pupils: Pupils are equal, round, and reactive to light. Neck: Musculoskeletal: Normal range of motion. Trachea: No tracheal deviation. Cardiovascular: Rate and Rhythm: Normal rate and regular rhythm. Heart sounds: Normal heart sounds. No murmur. Pulmonary: Effort: Pulmonary effort is normal. No respiratory distress. Breath sounds: Normal breath sounds. No wheezing or rales. Abdominal: General: Bowel sounds are normal. There is no distension. Palpations: Abdomen is soft. There is no hepatomegaly or splenomegaly. Tenderness: There is abdominal tenderness in the right lower quadrant and left lower quadrant. There is no right CVA tenderness, left CVA tenderness, guarding or rebound. Hernia: No hernia is present. Musculoskeletal: Normal range of motion. Skin: General: Skin is warm and dry. Neurological: Mental Status: She is alert and oriented to person, place, and time. Cranial Nerves: No cranial nerve deficit. Procedures Imaging Results CT ABDOMEN PELVIS W/ CONTRAST (Final result) Result time 11/29/19 02:10:02 Final result by Neri David MD (11/29/19 02:10:02) Impression: IMPRESSION: No acute abnormality identified to account for lower abdominal pain. Narrative: EXAM DESCRIPTION: CT ABDOMEN PELVIS W/ CONTRAST REASON FOR STUDY: Lower abdominal pain with nausea and vomiting tonight TECHNIQUE: CT scan of the abdomen and pelvis performed with intravenous and without oral contrast using helical scanning technique with dynamic intravenous contrast injection. Reconstructed coronal and sagittal MPR images reviewed. All images stored on PACS. Automated exposure control was used as a dose optimization technique for this examination. CONTRAST TYPE/DOSE: 124 cc Isovue 370 injected via right antecubital IV COMPARISON: 01/06/2017 FINDINGS: LOWER CHEST: Lung bases are clear. Heart size normal. No effusion. LIVER/BILIARY: Liver unremarkable. Biliary tree normal in caliber. GALLBLADDER: Absent. SPLEEN: Normal. PANCREAS: Normal. ADRENAL GLANDS: Normal. KIDNEYS/URINARY TRACT: Normal. GI: Stomach and small bowel appear normal. Colon and appendix unremarkable. OTHER ABDOMINAL/PELVIS: Major vascular structures are grossly patent and normal in caliber. No enlarged lymph node or free fluid. MSK: Normal. THIS IS AN ELECTRONICALLY VERIFIED FINAL REPORT 11/29/2019 2:07 AM - Electronically signed by Neri David M.D. AR: LALIT Report ID: [id number] Reading Location: [address] Number of Diagnoses or Management Options Amount and/or Complexity of Data Reviewed Clinical lab tests: ordered and reviewed Tests in the radiology section of CPT??: ordered and reviewed Tests in the medicine section of CPT??: ordered and reviewed Decide to obtain previous medical records or to obtain history from someone other than the patient:yes Review and summarize past medical records: yes Independent visualization of images, tracings, or specimens: yes Risk of Complications, Morbidity, and/or Mortality Presenting problems: moderate Diagnostic procedures: moderate Management options: moderate Patient Progress Patient progress: improved Reviewed: previous chart, nursing note and vitals Interpretation: labs and CT scan Clinical Impression 1. Lower abdominal pain Patient presents with lower abdominal pain. Workup with lab work was unremarkable except for an elevated white blood cell count. CT scan of the abdomen and pelvis was done but did not reveal any acute findings. I discussed this with the patient. We will try a dose of dicyclomine IM and see if this h elps if it does will discharge her with prescription for the same. I advised her to have close follow-up with her regular doctor. * Cesar Villarreal, RN - 11/28/2019 9:48 PM CDT Patient to ED with c/o lower ABD pain onset this evening. Patient states she vomited twice this evening prior to arrival. Patient states last BM was today and was regular. Patient denies urinary symptoms. Patient AOx4. documented in this encounter Plan of Treatment Upcoming Encounters Date Type Department Care Team (Late st Contact Info) Description 08/07/2024 10:00 AM DIRECTOR OF ADVERTISING SALES [facility] [address] [place] [address] Philippe Granados MD [address] [place] [address] documented as of this encounter Procedures Procedure Name Priority Date/Time Associated Diagnosis Comments CT ABDOMEN PELVIS W/ CONTRAST STAT 11/29/2019 1:10 AM CDT CBC WITH AUTO DIFFERENTIAL STAT 11/29/2019 12:10 AM CDT COMPLETE BLOOD COUNT (CBC) WITH DIFF STAT 11/29/2019 12:10 AM CDT EXTRA TUBES STAT 11/28/2019 11:00 PM CDT GOLD TOP TUBE STAT 11/28/2019 11:00 PM CDT BLUE TOP TUBE STAT 11/28/2019 11:00 PM CDT LIPASE STAT 11/28/2019 11:00 PM CDT CMP (COMPREHENSIVE METABOLIC PANEL) STAT 11/28/2019 11:00 PM CDT AMYLASE STAT 11/28/2019 11:00 PM CDT POCT URINE HCG () STAT 11/28/2019 10:18 PM CDT URINALYSIS REFLEX IF INDICATED BY ABNORMAL RESULTS STAT 11/28/2019 9:50 PM CDT documented in this encounter Results * CT ABDOMEN PELVIS W/ CONTRAST (11/29/2019 1:10 AM CDT) Anatomical Region Laterality Modality Abdomen N/A Computed Tomogra phy 11/29/2019 2:07 AM CDT Impressions 11/29/2019 2:10 AM CDT IMPRESSION: ??No acute abnormality identified to account for lower abdominal pain. Narrative 11/29/2019 2:10 AM CDT EXAM DESCRIPTION: ?? CT ABDOMEN PELVIS W/ CONTRAST REASON FOR STUDY: ?? Lower abdominal pain with nausea and vomiting tonight TECHNIQUE: ??CT scan of the abdomen and pelvis performed with intravenous and ??without oral contrast using helical scanning technique with dynamic intravenous contrast injection. Reconstructed coronal and sagittal MPR images reviewed. All images stored on PACS. Automated exposure control was used as a dose optimization technique for this examination. CONTRAST TYPE/DOSE: ?? 124 cc Isovue 370 injected via ??right antecubital IV COMPARISON: ?? 01/06/2017 FINDINGS: ?? LOWER CHEST: Lung bases are clear. ??Heart size normal. ?? No effusion. LIVER/BILIARY: Liver unremarkable. Biliary tree normal in caliber. GALLBLADDER: Absent. SPLEEN: Normal. PANCREAS: Normal. ADRENAL GLANDS: Normal. KIDNEYS/URINARY TRACT: Normal. GI: Stomach and small bowel appear normal. ??Colon and appendix unremarkable. OTHER ABDOMINAL/PELVIS: Major vascular structures are grossly patent and normal in caliber. ??No enlarged lymph node or free fluid. MSK: Normal. THIS IS AN ELECTRONICALLY VERIFIED FINAL REPORT 11/29/2019 2:07 AM - Electronically signed by Neri David M.D. AR: LALIT D: ??11/29/2019 2:07 AM T: ??11/29/2019 2:07 AM Report ID: [id number] Reading Location: [id number] Procedure Note Neri David MD - 11/29/2019 EXAM DESCRIPTION: CT ABDOMEN PELVIS W/ CONTRAST REASON FOR STUDY: Lower abdominal pain with nausea and vomiting tonight TECHNIQUE: CT scan of the abdomen and pelvis performed with intravenous and without oral contrast using helical scanning technique with dynamic intravenous contrast injection. Reconstructed coronal and sagittal MPR images reviewed. All images stored on PACS. Automated exposure control was used as a dose optimization technique for this examination. CONTRAST TYPE/DOSE: 124 cc Isovue 370 injected via right antecubital IV COMPARISON: 01/06/2017 FINDINGS: LOWER CHEST: Lung bases are clear. Heart size normal. No effusion. LIVER/BILIARY: Liver unremarkable. Biliary tree normal in caliber. GALLBLADDER: Absent. SPLEEN: Normal. PANCREAS: Normal. ADRENAL GLANDS: Normal. KIDNEYS/URINARY TRACT: Normal. GI: Stomach and small bowel appear normal. Colon and appendix unremarkable. OTHER ABDOMINAL/PELVIS: Major vascular structures are grossly patent and normal in caliber. No enlarged lymph node or free fluid. MSK: Normal. THIS IS AN ELECTRONICALLY VERIFIED FINAL REPORT 11/29/2019 2:07 AM - Electronically signed by Neri David M.D. AR: LALIT Report ID: [id number] Reading Location: [place] [address] IMPRESSION: No acute abnormality identified to account for lower abdominal pain. Fabian Avila MD IMG CT ORDERABLES Final R esult * (ABNORMAL) CBC with Auto Differential (11/29/2019 12:10 AM CDT) WBC 12.72(H) 4.00 - 12.00 10(3)/mcL 11/29/2019 12:21 AM CDT [facility] RBC 4.64 3.80 - 5.30 10(6)/mcL 11/29/2019 12:21 AM CDT [facility] HEMOGLOBIN (HGB) 11.5(L) 12.0 - 15.8 g/dL 11/29/2019 12:21 AM CDT [facility] HEMATOCRIT (HCT) 37.7 36.0 - 47.0 % 11/29/2019 12:21 AM CDT [facility] MCV 81.3(L) 82.0 - 96.0 fL 11/29/2019 12:21 AM CDT [facility] MCH 24.8(L) 26.0 - 34.0 pg 11/29/2019 12:21 AM CDT [facility] MCHC 30.5(L) 31.0 - 36.0 g/dL 11/29/2019 12:21 AM CDT [facility] PLATELET COUNT 291 140 - 440 10(3)/[facility] 11/29/2019 12:21 AM CDT [facility] RDW 15.1 11.8 - 15.5 % 11/29/2019 12:21 AM CDT [facility] MPV 11.5 9.7 - 12.4 fL 11/29/2019 12:21 AM CDT [facility] NEUTROPHILS 71.1 47.0 - 73.0 % 11/29/2019 12:21 AM CDT [facility] LYMPHOCYTES 22.2 18.0 - 42.0 % 11/29/2019 12:[facility] MON[facility] 5.7 4.0 - 12.0 % 11/29/2019 12:21 AM [facility] EOSINOPHILS 0.6 0.0 - 5.0 % 11/29/2019 12:21 AM CDT [facility] BASOPHILS 0.4 0.0 - 1.0 % 11/29/2019 12:21 AM T [facility] ABSOLUTE NEUTROPHILS 9.05(H) 1.60 - 7.70 10(3)/[facility] 11/29/2019 12:21 AM T [facility] ABSOLUTE LYMPHOCYTES 2.82 1.30 - 3.20 10(3)/[facility] 11/29/2019 12:21 AM T [facility] ABSOLUTE MONOCYTES 0.72 0.20 - 1.00 10(3)/[facility] 11/29/2019 12:21 AM CDT [facility] ABSOLUTE EOSINOPHIL 0.08 0.00 - 0.40 10(3)/[facility] 11/29/2019 12:21 AM CDT [facility] ABSOLUTE BASOPHILS 0.05 0.00 - 0.10 10(3)/[facility] 11/29/2019 12:21 AM [facility] NRBC PER 100 WBC 0 11/29/19 20 12:21 AM [facility] Blood Venipuncture / Unknown 11/29/2019 12:10 AM CDT 11/29/2019 12:19 AM CDT Fabian Avila MD HEMATOLOGY ORDERABLES Fin al Result Performing Organization Address City/[facility] Co de Phone Number [facility] [address] [place] [address] * Gold Top Tube (11/28/2019 11:00 PM CDT) Blood Venous Catheter (IV) / Unknown 11/28/2019 11:00 PM CDT 11/28/2019 11:39 PM CDT Fabian Avila MD CHEMISTRY ORDERABLES Farida l Result Performing Organization Address [facility] Co de Phone Number [facility] [address] [place] [address] * Blue Top Tube (11/28/2019 11:00 PM CDT) Blood Venous Catheter (IV) / Unknown 11/28/2019 11:00 PM CDT 11/28/2019 11:39 PM CDT Fabian Avila MD HEMATOLOGY ORDERABLES Fin al Result Performing Organization Address [facility] Co de Phone Number [facility] [address] [place] [address] * Lipase (11/28/2019 11:00 PM CDT) LIPASE 28.8 13 - 60 U/L 11/29/2019 12:12 AM CDT [facility] Blood Venous Catheter (IV) / Unknown 11/28/2019 11:00 PM CDT 11/28/2019 11:38 PM CDT Fabian Avila MD CHEMISTRY ORDERABLES Farida l Result Performing Organization Address City/[facility] Co de Phone Number [facility] [address] [place] [address] * (ABNORMAL) CMP (Comprehensive Metabolic Panel) (11/28/2019 11:00 PM CDT) SODIUM 139 136 - 144 mmol/L 11/29/2019 12:12 AM CDT [facility] POTASSIUM 4.0 3.5 - 5.1 mmol/L 11/29/2019 12:12 AM CDT [facility] CHLORIDE 98(L) 100 - 110 mmol/L 11/29/2019 12:12 AM CDT [facility] CO2, VENOUS 27 22 - 32 mmol/L 11/29/2019 12:12 AM CDT [facility] ANION GAP 18.0 8.0 - 20.0 mmol/L 11/29/2019 12:12 AM CDT [facility] GLUCOSE 115(H) 70 - 99 mg/dL 11/29/2019 12:12 AM CDT [facility] BUN 11 6 - 20 mg/dL 11/29/2019 12:12 AM CDT [facility] CREATININE, BLOOD 0.87 0.60 - 1.10 mg/dL 11/29/2019 12:12 AM CDT [facility] BUN/CREATININE RATIO 13 12 - 20 ratio 11/29/2019 12:12 AM CDT [facility] TOTAL PROTEIN 7.5 6.0 - 8.3 g/dL 11/29/2019 12:12 AM CDT [facility] ALBUMIN 4.2 3.5 - 5.2 g/dL 11/29/2019 12:12 AM T [facility] Comment: The colormetric methods used for the determination of Albumin may lead to falsely elevated test results in patients suffering from renal failure or insufficiency due to interference with other proteins. A/G RATIO 1.3 1.0 - 2.0 11/29/2019 12:12 AM CDT [facility] CALCIUM 9.9 8.9 - 10.3 mg/dL 11/29/2019 12:12 AM CDT [facility] T BILI <=0.2 <=1.2 mg/dL 11/29/2019 12:12 AM CDT [facility] SGOT (AST) 21 <=32 U/L 11/29/2019 12:12 AM CDT [facility] SGPT (ALT) 22 <=33 U/L 11/29/2019 12:12 AM CDT [facility] ALKALINE PHOSPHATASE 129(H) 35 - 105 U/L 11/29/2019 12:12 AM CDT [facility] GFR, EST. NONAFRICAN >60 >=60 11/29/2019 12:12 AM CDT [facility] GFR, EST. >60 >=60 020 12:12 AM CDT [facility] Comment: Creatinine Clearance is the preferred criteria for selecting drug dose adjustments in renally impaired patients. ??The GFR is provided as additional pertinent clinical information. GFR is reported in mL/min/1.73 sq m. Blood Venous Catheter (IV) / Unknown 11/28/2019 11:00 PM CDT 11/28/2019 11:38 PM CDT Fabian Avila MD CHEMISTRY ORDERABLES Farida l Result Performing Organization Address City/[facility]/ZIP Co de Phone Number [facility] [address] [place] [address] * Amylase (11/28/2019 11:00 PM CDT) AMYLASE 65 28 - 100 U/L 11/29/2019 12:12 AM CDT [facility] Blood Venous Catheter (IV) / Unknown 11/28/2019 11:00 PM CDT 11/28/2019 11:38 PM CDT Fabian Avila MD CHEMISTRY ORDERABLES Farida l Result [facility] [address] [place] [address] * POCT Urine HCG () (11/28/2019 10:18 PM CDT) POC URINE Negative POC URINE CONTROL Pharmacy Resident Pass Urine 11/28/2019 10:1 8 PM CDT Fabian Avila MD POINT OF CARE TESTING (LA NUAL) Final Result * (ABNORMAL) URINALYSIS REFLEX IF INDICATED BY ABNORMAL RESULTS (11/28/2019 9:50 PM CDT) Pathologist [facility] SPECIFIC GRAVITY 1.015 1.003 - 1.030 11/28/2019 11:04 PM CDT [facility] URINE PH 6.0 5.0 - 9.0 11/28/2019 11:04 PM CDT [facility] WBC ESTERASE Negative Negative 11/28/2019 11:04 PM CDT [facility] NITRITE Negative Negative 11/28/2019 11:04 PM CDT [facility] PROTEIN, RANDOM URINE 15 mg/dL(A) Negative 11/28/2019 11:04 PM CDT [facility] URINE GLUCOSE, QUAL Negative Negative 11/28/2019 11:04 PM CDT [facility] URINE KETONES Negative Negative 11/28/2019 11:04 PM CDT [facility] UROBILINOGEN Normal Normal mg/dL 11/28/2019 11:04 PM CDT [facility] URINE BILIRUBIN Negative Negative 0 11:04 PM CDT [facility] URINE BLOOD Negative Negative jim/ul 11/28/2019 11:04 PM CDT [facility] URINALYSIS COLOR Yellow 11/28/19 20 11:04 PM CDT [facility] URINALYSIS CLARITY Slightly Cloudy 11/28/2019 11:04 PM CDT [facility] Urine URINE SPECIMEN / Unknown Non-Phlebotomy Collection / Unknown 11/28/2019 9:50 PM CDT 11/28/2019 10:51 PM CDT us Fabian Avila MD URINE ORDERABLES Final Re sult [facility] [address] [place] [address] documented in this encounter Visit Diagnoses Diagnosis Lower abdominal pain- Primary Abdominal pain, other specified site documented in this encounter Administered Medications Inactive Administered Medications - up to 3 most recent administrations Medication Order MAR Action Action Date Dose Rate Site 0.9 % sodium chloride solution at 1,000 mL/hr, Intravenous, ONCE, 1 dose, On Sun11/28/19 at 2330 New Bag 11/28/2019 11:32 PM CDT 1000 mL/hr dicyclomine (BENTYL) injection 20 mg 20 mg, Intramuscular, ONCE, 1 dose, On 11/29/19 at 0330 Given 11/29/2019 3:03 AM CDT 20 mg Right Vastus Lateralis iopamidol (ISOVUE-370) 76 % injection 150 mL 150 mL, Intravenous, ONCE, 1 dose, On 11/29/19 at 0130 Given 11/29/2019 1:09 AM CDT 124 mL ketorolac (TORADOL) injection 15 mg 15 mg, Intravenous, ONCE, 1 dose, On 11/29/19 at 0030 Given 11/29/2019 12:17 AM CDT 15 mg documented in this encounter Active and Recently Administered Medications Times are shown in CDT. Scheduled Medication Order 11/27/2019 11/28/2019 11/29/2019 0.9 % sodium chloride solution (COMPLETED) at 1,000 mL/hr, Intravenous, ONCE, 1 dose, On Sun11/28/19 at 2330 2332 (New Bag - Provider: Derek Brown RN) 0045 (Stopped - Provider: Tiffanie Masters, EBEN) dicyclomine (BENTYL) injection 20 mg (COMPLETED) 20 mg, Intramuscular, ONCE, 1 dose, On 11/29/19 at 0330 0303 (Given - Provid er: Tiffanie Masters, EBEN) iopamidol (ISOVUE-370) 76 % injection 150 mL (COMPLETED) 150 mL, Intravenous, ONCE, 1 dose, On 11/29/19 at 0130 0109 (Given - Provid er: Ranjit A Dunsmore, RTR) ketorolac (TORADOL) injection 15 mg (COMPLETED) 15 mg, Intravenous, ONCE, 1 dose, On 11/29/19 at 0030 0017 (Given - Provid er: Derek Brown RN) documented in this encounter Care Teams Patch Washer Relationship Specialty Start Date End Date Provider, None [place] PCP - General 07/21/16 04/26/20 documented as of this encounter
--- OUTSIDE RECORDS SUMMARY | 2024-06-13 23:55 | XMS_ITS | Encounter Summary ---
Author Organization [facility] [employer] Care Team Providers Care Hall Monitor Name Role Phone Provider, None Primary Care Provider Unavailabl e Encounter Details Date Type Department Care Team (Latest Contact Info) Description 11/28/2019 Travel Social History Tobacco Use Types Packs/Day [...] PM CDT documented as of this encounter Plan of Treatment Upcoming Encounters Date Type Department Care Team (Late st Contact Info) Description 08/07/2024 10:00 AM CUSTOMER MARKETING ASSISTANT Office Visit [facility] - Pulmonology & Sleep Medicine [facility] [address] [place] [phone] Philippe Granados MD [address] [place] [phone] documented as of this encounter Visit Diagnoses Not on filedocumented in this encounter Care Teams Hall Monitor Relationship Specialty Start Date End Date Provider, None [place] PCP - General 07/21/16 04/26/20 documented as of this encounter
--- OUTSIDE RECORDS SUMMARY | 2024-06-13 23:55 | XMS_ITS | Encounter Summary ---
Author Organization [facility] [employer] Care Team Providers Care Filler Room Attendant Name Role Phone Iwona, Rox Sol AL CNP Primary Care Provider Philippe Granados MD Unavailable Encounter Details Date Type Department Care Team (Latest Contact Info) Description 03/30/2022 Travel Social History Tobacco Use Types Packs/Day [...] suspected to have Coronavirus/COVID-19? No / Unsure 03/30/2022 9:51 AM CDT documented as of this encounter Plan of Treatment Upcoming Encounters Date Type Department Care Team (Late st Contact Info) Description 08/07/2024 10:00 AM BROOM STITCHER Office Visit [facility] - Pulmonology & Sleep Medicine [facility] [address] [place] [address] Philippe Granados MD [address] [place] [address] documented as of this encounter Visit Diagnoses Not on filedocumented in this encounter Care Teams Filler Room Attendant Relationship Specialty Start Date End Date Rox Bustillo APRN, TJ [address] [place] [address] PCP - General Advanced Practice Nurse 10/05/21 Philippe Granados MD [address] [place] [phone] Consulting Physician Pulmonary Disease 03/30/22 documented as of this encounter
--- OUTSIDE RECORDS SUMMARY | 2024-06-13 23:55 | XMS_ITS | Patient Health Summary ---
Author Organization [facility] Address [address] [place] [address] Care Team Providers Care Therapeutic Recreation Leader Name Role Phone Glenny Lewis MD Primary Care Provider [phone] Note from [facility],non-owned Affiliates and Associated Physician Practices is amultiple site organization consisting of ambulatory clinics and hospital sitesin [place], [place], [place] and [place]. This disclosure is being madepursuant to the Care Everywhere program and may not contain all information available regarding this patient. Last updated 18.[facility] Social History Tobacco Use Types Packs/Day Years Used Date Smoking Tobacco: Never Assessed Sex and Gender Information Value Date Recorded Sex Assigned at Not on file Gender Identity Not on file Sexual Orientation Not on file Procedures * SARS-COV-2 (COVID-19) IN HOUSE(Performed 12/16/2019) Results * SARS-COV-2 (COVID-19) IN HOUSE (12/16/2019 6:35 PM CDT) COVID-19 PCR Not detected Not detected, Invalid 12/17/2019 11:01 PM CDT [facility] Microbiology SPECIMEN FROM NASOPHARYNGEAL STRUCTURE / Unknown Collection / Unknown 12/16/2019 6:35 PM CDT 12/17/2019 10:11 AM CDT Narrative [facility] - 12/17/2019 11:01 PM CDT This nucleic acid amplification assay performance was validated by [facility]. This test has been authorized by the Food and Drug administration (FDA)under an Emergency??Use Authorization (EUA). This test has been validated in accordance with the FDA's guidance document Policy for Diagnostic Testing in Laboratories Certified to perform High Complexity Testing under CLIA prior to Emergency Use Authorization for Coronavirus Disease-2019 during the Public Health Emergency issued on August 02, 2019. FDA independent review of this validation is pending. This test is only authorized for the duration of time the declaration that circumstances exist justifying the authorization of emergency use of in vitro diagnostic tests for detection of SARS-CoV-2 virus and/or diagnosis of COVID-19 infection under section 564(b)(1) of the Act, 21 U.S.C 360bbb-3 (b)(1), unless the authorization is terminated or revoked sooner. Alexx Arceo MD LAB - MICROBIOLOGY ORDERABLES [facility] [address] [place], [address] [phone] Care Teams Therapeutic Recreation Leader Relationship Specialty Start Date End Date Glenny Lewis MD PCP - General 05/23/18
--- OUTSIDE RECORDS SUMMARY | 2024-06-13 23:55 | XMS_ITS | Encounter Summary ---
Author Organization [facility] Address [address] [facility] [place] [address] Phone Care Team Providers Care Marketing Production Specialist Name Role Phone Iwona, Rox Horton APRN, CNP Primary Care Provider Encounter Details Date Type Department Care Team (Late st Contact Info) Description 10/20/2021 Transcribe Orders [facility] [address] [place] [phone] Philippe Granados MD [address] [place] [phone] Obstructive sleep apnea (Primary Dx) Social History Tobacco Use Types Packs/Day Years [...] suspected to have Coronavirus/COVID-19? No / Unsure 10/20/2021 10:31 AM CDT documented as of this encounter Plan of Treatment Upcoming Encounters Date Type Department Care Team (Late st Contact Info) Description 08/07/2024 10:00 AM CLINICAL DATA RESEARCH Office Visit [facility] - Pulmonology & Sleep Medicine [facility] [address] [place] [address] Philippe Granados MD [address] [place] [address] documented as of this encounter Results * SPLIT NIGHT PSG (11/03/2021) us Philippe Granados MD SLEEP CENTER ORDERABLES Final Re sult documented in this encounter Visit Diagnoses Diagnosis Obstructive sleep apnea- Primary Obstructive sleep apnea (adult) (pediatric) documented in this encounter Care Teams Marketing Production Specialist Relationship Specialty Start Date End Date Rox Bustillo APRN, FLAVORINGS COMPOUNDER [address] [place] [address] PCP - General Advanced Practice Nurse 10/05/21 documented as of this encounter
--- OUTSIDE RECORDS SUMMARY | 2024-06-13 23:55 | XMS_ITS | Encounter Summary ---
Author Organization [facility] Care Team Providers Care Medical Claims Analyst Name Role Phone Rox Bustillo APRN, CNP Primary Care Provider Philippe Granados MD Unavailable Encounter Details Date Type Department Care Team (Latest Contact Info) Description 02/07/2024 Travel Social History Tobacco Use Types Packs/Day [...] st Contact Info) Description 08/07/2024 10:00 AM ANIMAL BOUNTY HUNTER Office Visit [facility] - Pulmonology & Sleep Medicine [facility] [address] [place] [address] Philippe Granados MD [address] [place] [address] documented as of this encounter Visit Diagnoses Not on filedocumented in this encounter Care Teams Medical Claims Analyst Relationship Specialty Start Date End Date Rox Bustillo APRN, CNP [address] [place] [address] PCP - General Advanced Practice Nurse 10/05/21 Philippe Granados MD [address] [place] [address] Consulting Physician Pulmonary Disease 03/30/22 documented as of this encounter
--- OUTSIDE RECORDS SUMMARY | 2024-06-13 23:55 | XMS_ITS | Encounter Summary ---
Author Organization [facility] Address [address] [place] [address] Phone Care Team Providers Care Plastic Surgery Technician Name Role Phone Rox Bustillo APRN, CNP Primary Care Provider Philippe Granados MD Unavailable Reason for Referral * Radiology Services (Routine) - Authorized Specialty Diagnoses / Procedures Referred By Contac t Referred To Contact Radiology Diagnoses Cyst of ovary, unspecified laterality Procedures US PELVIS COMPLETE WITH TRANSVAGINAL Raquel Laurent APRN, CNP Phone: tel: fax: Referral ID Status Reason Start Date Expiration Date V isits Requested Visits Authorized [id number] Authorized 06/20/2023 1 1 LE HOME SET UP PERSON Encounter Details Date Type Department Care Team (Late st Contact Info) Description 06/20/2023 Transcribe Orders [facility] Central Scheduling [address] [place] [address] Raquel Laurent APRN, CNP [address] [place] [address] [place] [address] Cyst of ovary, unspecified laterality (Primary Dx) Social History Tobacco Use Types [...] st Contact Info) Description 08/07/2024 10:00 AM MOBILE HOME SET UP PERSON Office Visit [facility] - Pulmonology & Sleep Medicine [facility] [address] [place] [address] Philippe Granados MD [address] [place] [address] Scheduled Orders Name Type Priority Associated Diagnoses Orde r Schedule US PELVIS COMPLETE WITH TRANSVAGINAL Imaging Routine Cyst of ovary, unspecified laterality Expected: 06/20/2023, Expires: 06/20/2024 documented as of this encounter Visit Diagnoses Diagnosis Cyst of ovary, unspecified laterality- Primary documented in this encounter Care Teams Plastic Surgery Technician Relationship Specialty Start Date End Date Rox Bustillo APRN, TJ [address] [place] [address] PCP - General Advanced Practice Nurse 10/05/21 Philippe Granados MD [address] [place] [address] Consulting Physician Pulmonary Disease 03/30/22 documented as of this encounter
--- OUTSIDE RECORDS SUMMARY | 2024-06-13 23:55 | XMS_ITS | Encounter Summary ---
Author Organization [facility] Care Team Providers Care Floor Grinder Name Role Phone Rox Bustillo APRN, CNP Primary Care Provider Philippe Granados MD Unavailable Encounter Details Date Type Department Care Team (Latest Contact Info) Description 06/14/2023 Travel Social History Tobacco Use Types Packs/Day [...] st Contact Info) Description 08/07/2024 10:00 AM POST ADOPTION COORDINATOR Office Visit [facility] - Pulmonology & Sleep Medicine [facility] [address] [place] [address] Philippe Granados MD [address] [place] [address] documented as of this encounter Visit Diagnoses Not on filedocumented in this encounter Care Teams Floor Grinder Relationship Specialty Start Date End Date Rox Bustillo APRN, CNP [address] [place] [address] PCP - General Advanced Practice Nurse 10/05/21 Philippe Granados MD [address] [place] [address] Consulting Physician Pulmonary Disease 03/30/22 documented as of this encounter
--- OUTSIDE RECORDS SUMMARY | 2024-06-13 23:55 | XMS_ITS | Encounter Summary ---
Author Organization [facility] [employer] Care Team Providers Care Piece Dyer Name Role Phone Iwona, Rox Horton APRN, CNP Primary Care Provider Encounter Details Date Type Department Care Team (Latest Contact Info) Description 10/20/2021 Travel Social History Tobacco Use Types Packs/Day [...] st Contact Info) Description 08/07/2024 10:00 AM INTERIOR SYSTEMS CARPENTER Office Visit [facility] - Pulmonology & Sleep Medicine [facility] [address] [place] [address] Philippe Granados MD [address] [place] [address] documented as of this encounter Visit Diagnoses Not on filedocumented in this encounter Care Teams Piece Dyer Relationship Specialty Start Date End Date Rox Bustillo APRN, TUNNEL WORKER [address] [place] [address] PCP - General Advanced Practice Nurse 10/05/21 documented as of this encounter
--- OUTSIDE RECORDS SUMMARY | 2024-06-13 23:55 | XMS_ITS | Data Portability ---
[facility] Address [address] [place] [address] Care Team Providers Care Technical Professional Name Role Phone LELE, ROX Primary Care Provider Assessment Encounter Date Assessment Date Assessment LastModified by Organization Details LastModified Time 08/22/2023 08/22/2023 Ms. Ross presented in office today for f/u appointment. Patient complaining of cough, congestion, and left ear pain for 1 week. Patient states home COVID test was negative. Not available 08/22/2023 11:55:01 09/17/2023 09/17/2023 Ms. Ross came into the office today complaining of skin growth on the left lower scalp. The patient reports that she has had a lesion on her scalp since she was a child, but it was pea-sized and has gradually grown larger. Not available 09/17/2023 10:49:07 02/27/2024 02/27/2024 Ms. Ross presents with a 6-day history of chills, cold sweats, cough, body aches, and runny nose. Symptoms began gradually and have persisted without significant improvement. Not available 02/27/2024 12:46:33 Plan of Treatment Reminders Order Date Submit Date Provider Last Modified By Organization Details Last Modified Time Details Appointments None recorded. Lab biopsy, endometrial 2023 Nohemi shah [facility], [address] [place] [address], [address], 12:49:48 test, urine 2023 Nohemi shah In-Office Order, Internal Use Only DO Not Attach Compendium DO Not Attach Compendium, Do Not Delete/merge, [id number] 4 12:49:48 vitamin D, 25-hydroxy, total, serum 2023 024 AMMON [facility], [address], [address], [place], [address], 4 08:23:41 CMP, serum or plasma 2023 024 AMMON [facility], [address], [address], [place], [address], 4 03:08:52 iron + total iron-bindin g capacity (TIBC), serum 2023 024 AMMON [facility], [address], [address], [place], [address], 4 08:23:40 ferritin, serum or plasma 2023 024 AMMON [facility], [address], [address], [place], [address], 4 08:23:41 vitamin B12 + folate, serum or blood 2023 024 AMMON [facility], [address], [place], [address], 4 08:23:39 CBC w/ auto diff 2023 024 AMMON [facility], [address] [facility], [address], [place], [address], 4 03:08:50 culture, urine 2023 024 [email or web address] [facility], [address], [place], [address], 4 10:37:14 urinalysis, dipstick 2023 024 [email or web address] In-Office Order, Internal Use Only DO Not Attach Compendium DO Not Attach Compendium, Do Not Delete/merge, [id number] 4 11:56:24 test, urine 2023 024 [email or web address] In-Office Order, Internal Use Only DO Not Attach Compendium DO Not Attach Compendium, Do Not Delete/merge, [id number] 4 11:56:25 rapid SARS CoV 2 Ag, QL IA, respiratory specimen 2023 024 AMMON In-Office Order, Internal Use Only DO Not Attach Compendium DO Not Attach Compendium, Do Not Delete/merge, [id number] 4 13:03:20 rapid flu (A+B) 2023 024 AMMON In-Office Order, Internal Use Only DO Not Attach Compendium DO Not Attach Compendium, Do Not Delete/merge, [id number] 4 13:03:[address] referral 2023 024 [facility], [address] [place], [address], 4 09:25:04 Procedures None recorded. Surgeries None recorded. Imaging None recorded. Medication Orders benzonatate 100 mg capsule 2023 HANNACROIX [id number], [address], [place], [id number], 4 09:47:48 fluticasone propionate 50 mcg/actuati on nasal spray,suspe nsion 2023 024 [id number], [address], [place], [id number], 4 11:11:52 Patient TargetsNo targets recorded. Patient Instructions Encounter Date Encounter Id Patient Instructions Last Modified By Organization Details Last Modified Time 07/10/2023 [id number] abnormal uterine bleeding: care instructions Not available 07/10/2023 12:49:48 Vaginal Bleeding (Nonpregnancy): Care Instructions Not available 07/10/2023 12:49:48 08/22/2023 [id number] A healthy lifestyle: care instructions Not available 08/22/2023 11:10:27 viral respirator y infection: care instructions Not available 08/22/2023 11:11:33 viral infections : care instructions Not available 08/22/2023 11:11:33 - Always present to ER or Urgent Care with any progression of/alarming symptoms, significant changes in symptoms or any concerning or urgent matters Not available 08/22/2023 10:58:25 09/17/2023 [id number] A healthy lifestyle: care instructions Not available 09/17/2023 11:28:42 - Always present to ER or Urgent Care with any progression of/alarming symptoms, significant changes in symptoms or any concerning or urgent matters Not available 09/17/2023 11:25:52 02/27/2024 [id number] viral respirator y infection: care instructions Not available 02/27/2024 12:44:56 - Always present to ER or Urgent Care with any progression of/alarming symptoms, significant changes in symptoms or any concerning or urgent matters Not available 02/27/2024 12:49:02 Reason for Referral Personal Care Aide Referral for L esion of scalp Referring Physician: Rox Royal, Family Medicine, Encounter Date: 09/17/2023 Results Created Date Observation Date Name Description Value Unit Range Abnormal Flag Note LastModifiedBy Organization Detail LastModifiedTime 06/20/19 24 06/20/2023 CBC WITH DIFFE RENTI AL/PL ATELE T WBC 12.1 x10e3 /uL 3.4-10 .8 above high normal Not Available [facility] [address] [place], [address], 06/21/2023 07:12:39 06/20/19 24 06/20/2023 CBC WITH DIFFE RENTI AL/PL ATELE T RBC 5.28 x10e6 /uL 3.77-5 .28 Not Available [facility] [address] [place], [address], 06/21/2023 07:12:39 06/20/19 24 06/20/2023 CBC WITH DIFFE RENTI AL/PL ATELE T hemoglobin 13.3 g/dL 11.1-1 5.9 Not Available [facility] [address] [place], [address], 06/21/2023 07:12:39 06/20/19 24 06/20/2023 CBC WITH DIFFE RENTI AL/PL ATELE T hematocrit 43.0 % 34.0-4 6.6 Not Available [facility] [address] [place], [address], 06/21/2023 07:12:39 06/20/19 24 06/20/2023 CBC WITH DIFFE RENTI AL/PL ATELE T MCV 81 fL 79-97 Not Available [facility] [address] [place], [address], 06/21/2023 07:12:39 06/20/19 24 06/20/2023 CBC WITH DIFFE RENTI AL/PL ATELE T MCH 25.2 pg 26.6-3 3.0 below low normal Not Available [facility] [address] [place], [address], 06/21/2023 07:12:39 06/20/19 24 06/20/2023 CBC WITH DIFFE RENTI AL/PL ATELE T MCHC 30.9 g/dL 31.5-3 5.7 below low normal Not Available [facility] [address] [place], [address], 06/21/2023 07:12:39 06/20/19 24 06/20/2023 CBC WITH DIFFE RENTI AL/PL ATELE T RDW 14.3 % 11.5-1 4.5 Not Available [facility] [address] [place], [address], 06/21/2023 07:12:39 06/20/19 24 06/20/2023 CBC WITH DIFFE RENTI AL/PL ATELE T platelets 352 x10e3 /uL 150-45 0 Not Available [facility] [address] [place], [address], 06/21/2023 07:12:39 06/20/19 24 06/20/2023 CBC WITH DIFFE RENTI AL/PL ATELE T neutrophils 64 % notest b. Not Available [facility] [address] [place], [address], 06/21/2023 07:12:39 06/20/19 24 06/20/2023 CBC WITH DIFFE RENTI AL/PL ATELE T lymphs 30 % notest b. Not Available [facility] [address] [place], [address], 06/21/2023 07:12:39 06/20/19 24 06/20/2023 CBC WITH DIFFE RENTI AL/PL ATELE T monocytes 5 % notest b. Not Available [facility] [address] [place], [address], 06/21/2023 07:12:39 06/20/19 24 06/20/2023 CBC WITH DIFFE RENTI AL/PL ATELE T eos 1 % notest b. Not Available [facility] [address] [place], [address], 06/21/2023 07:12:39 06/20/19 24 06/20/2023 CBC WITH DIFFE RENTI AL/PL ATELE T basos 0 % notest b. Not Available [facility] [address] [place], [address], 06/21/2023 07:12:39 06/20/19 24 06/20/2023 CBC WITH DIFFE RENTI AL/PL ATELE T neutrophils (absolute) 7.7 x10e3 /uL 1.4-7. 0 above high normal Not Available [facility] [address] [place], [address], 06/21/2023 07:12:39 06/20/19 24 06/20/2023 CBC WITH DIFFE RENTI AL/PL ATELE T lymphs (absolute) 3.6 x10e3 /uL 0.7-3. 1 above high normal Not Available [facility] [address] [place], [address], 06/21/2023 07:12:39 06/20/19 24 06/20/2023 CBC WITH DIFFE RENTI AL/PL ATELE T monocytes(ab solute) 0.5 x10e3 /uL 0.1-0. 9 Not Available [facility] [address] [place], [address], 06/21/2023 07:12:39 06/20/19 24 06/20/2023 CBC WITH DIFFE RENTI AL/PL ATELE T eos (absolute) 0.1 x10e3 /uL 0.0-0. 4 Not Available [facility] [address] [place], [address], 06/21/2023 07:12:39 06/20/19 24 06/20/2023 CBC WITH DIFFE RENTI AL/PL ATELE T baso (absolute) 0.0 x10e3 /uL 0.0-0. 2 Not Available [facility] [address] [place], [address], 06/21/2023 07:12:39 06/20/19 24 06/20/2023 CBC WITH DIFFE RENTI AL/PL ATELE T immature granulocytes 0.4 % notest b. Not Available [facility] [address] [place], [address], 06/21/2023 07:12:39 06/20/19 24 06/20/2023 CBC WITH DIFFE RENTI AL/PL ATELE T immature grans (abs) 0.1 x10e3 /uL 0.0-0. 1 Not Available [facility] [address], [place], [address], 06/21/2023 07:12:39 06/20/19 24 06/20/2023 CBC WITH DIFFE RENTI AL/PL ATELE T NRBC 0 % 0-0 Not Available [facility] [address], [place], [address], 06/21/2023 07:12:39 06/20/19 24 06/21/2023 CT, NG, TRICH VAG BY VENU chlamydia by VENU Negati ve negati ve Not Available [facility] ([facility]) [address] [place], [address], 06/22/2023 07:17:12 06/20/19 24 06/21/2023 CT, NG, TRICH VAG BY VENU gonococcus by VENU Negati ve negati ve Not Available [facility] ([facility]) [address] [place], [address], 06/22/2023 07:17:12 06/20/19 24 06/21/2023 CT, NG, TRICH VAG BY VENU trich vag by VENU Negati ve negati ve Not Available [facility] ([facility]) [address] [place], [address], 06/22/2023 07:17:12 06/20/19 24 06/21/2023 TSH+F REE T4 TSH 1.770 uIU/m L 0.450- 4.500 Not Available [facility] ([facility]) [address] [place], [address], 06/22/2023 07:17:13 06/20/19 24 06/21/2023 TSH+F REE T4 T4,free(dire ct) 1.46 NG/dL 0.82-1 .77 Not Available [facility] ([facility]) [address] [place], [address], 06/22/2023 07:17:13 06/20/19 24 06/21/2023 PROLA CTIN prolactin 8.1 NG/mL 4.8-33 .4 Not Available [facility] ([facility]) [address] [facility], [place], [address], 06/22/2023 07:17:13 06/20/19 24 06/24/2023 URINE CULTU RE, ROUTI NE urine culture, routine Final report abnormal Not Available [facility] ([facility]) [address] [facility], [place], [address], 06/24/2023 16:08:25 06/20/19 24 06/24/2023 URINE CULTU RE, ROUTI NE result 1 Escher ichia coli abnormal 25,00 0-50, 000 colon y formi ng units per mL Cefaz birdie <=4 ug/mL Cefaz birdie with an LILLY <=16 predi cts susce ptibi lity to the oral agent s cefac shreya, cefdi eldon, cefpo doxim e, cefpr ozil, cefur oxime , cepha lexin , and lorac arbef when used for thera py of uncom plica daniela urina ry tract infec tions due to E. coli, Klebs iella pneum oniae , and Prote us mirab ilis. Not Available [facility] ([facility]) [address] [facility], [place], [address], 06/24/2023 16:08:25 06/20/19 24 06/24/2023 URINE CULTU RE, ROUTI NE antimicrobia l susceptibili ty Commen t S = Susce ptibl e; I = Inter media te; R = Resis tant P = Posit parth; N = Negat parth MICS are expre ssed in micro grams per mL Antib iotic RSLT# 1 RSLT# 2 RSLT# 3 RSLT# 4 Amoxi cilli n/Cla vulan ic Acid S Ampic illin S Cefep aaliyah S Ceftr iaxon e S Cefur oxime S Cipro floxa sara S Ertap enem S Genta micin S Imipe nem S Levof loxac in S Merop enem S Nitro furan toin S Piper acill in/Ta zobac mcduffie S Tetra cycli ne S Tobra mycin S Trime thopr im/Martell lfa S Not Available [facility] ([facility]) [address] [facility], [place], [address], 06/24/2023 16:08:25 06/20/19 24 06/20/2023 urina lysis , dipst ick Leukocytes Trace Not Available In-Offi ce Order Internal Use Only DO Not Attach Compendium DO Not Attach Compendium, Do Not Delete/merge, 06/20/2023 16:15:05 06/20/19 24 06/20/2023 urina lysis , dipst ick Nitrite negati ve Not Available In-Office Order Internal Use Only DO Not Attach Compendium DO Not Attach Compendium, Do Not Delete/merge, 06/20/2023 16:15:05 06/20/19 24 06/20/2023 urina lysis , dipst ick Urobilinogen .2 Not Available In-Of fice Order Internal Use Only DO Not Attach Compendium DO Not Attach Compendium, Do Not Delete/merge, 06/20/2023 16:15:05 06/20/19 24 06/20/2023 urina lysis , dipst ick Protein Trace Not Available In-Office Order Internal Use Only DO Not Attach Compendium DO Not Attach Compendium, Do Not Delete/merge, 06/20/2023 16:15:05 06/20/19 24 06/20/2023 urina lysis , dipst ick pH 7.0 Not Available In-Office Order Internal Use Only DO Not Attach Compendium DO Not Attach Compendium, Do Not Delete/merge, 06/20/2023 16:15:05 06/20/19 24 06/20/2023 urina lysis , dipst ick Blood Large Not Available In-Office Order Internal Use Only DO Not Attach Compendium DO Not Attach Compendium, Do Not Delete/merge, 06/20/2023 16:15:05 06/20/19 24 06/20/2023 urina lysis , dipst ick Specific [place] 1.025 Not Available In-Off ice Order Internal Use Only DO Not Attach Compendium DO Not Attach Compendium, Do Not Delete/merge, 06/20/2023 16:15:05 06/20/19 24 06/20/2023 urina lysis , dipst ick Ketone Negati ve Not Available In-Office Order Internal Use Only DO Not Attach Compendium DO Not Attach Compendium, Do Not Delete/merge, 06/20/2023 16:15:05 06/20/19 24 06/20/2023 urina lysis , dipst ick Bilirubin Negati ve Not Available In-Office Order Internal Use Only DO Not Attach Compendium DO Not Attach Compendium, Do Not Delete/merge, 06/20/2023 16:15:05 06/20/19 24 06/20/2023 urina lysis , dipst ick Glucose Negati ve Not Available In-Office Order Internal Use Only DO Not Attach Compendium DO Not Attach Compendium, Do Not Delete/merge, 06/20/2023 16:15:05 06/20/19 24 06/20/2023 urina lysis , dipst ick Appearance Slight ly Cloudy Not Available In-Office Order Internal Use Only DO Not Attach Compendium DO Not Attach Compendium, Do Not Delete/merge, 06/20/2023 16:15:05 06/20/19 24 06/20/2023 urina lysis , dipst ick Color Yellow Not Available In-Office Order Internal Use Only DO Not Attach Compendium DO Not Attach Compendium, Do Not Delete/merge, 06/20/2023 16:15:05 06/20/19 24 06/20/2023 pregn elver test, urine HCG negati ve Not Available In-Office Order Internal Use Only DO Not Attach Compendium DO Not Attach Compendium, Do Not Delete/merge, 06/20/2023 16:05:07 07/10/19 24 07/13/2023 PATHO LOGY REPOR T . Commen t Mater ial submi tted: . endom etriu m - ENDOM ETRIA L BIOPS Y Not Available [facility] ([facility]) [address] [facility], [place], [address], 07/13/2023 16:21:52 07/10/19 24 07/13/2023 PATHO LOGY REPOR T . Leobardo t Clini jude provi ded ICD-1 0: N92.1 Not Available [facility] ([facility]) [address] [facility], [place], [address], 07/13/2023 16:21:52 07/10/19 24 07/13/2023 PATHO LOGY REPOR T Sandi Booth t Diagn osis: ENDOM ETRIA L BIOPS Y: DISOR DERED PROLI FERAT PARTH PHASE ENDOM ETRIU M. EHA 07/13 1451 Local Not Available [facility] ([facility]) [address] [facility], [place], [address], 07/13/2023 16:21:52 07/10/19 24 07/13/2023 PATHO LOGY REPOR T Sandi Booth t Padilla burris d: . Maddi gaona MD, Patho logis t Not Available [facility] ([facility]) [address] [facility], [place], [address], 07/13/2023 16:21:52 07/10/19 24 07/13/2023 PATHO LOGY REPOR T Sandi Booth t Gross descr iptio n: . 1 Conta iner, forma bryant-f illed , label ed with patie nt ident ifica tion. ENDOM ETRIA L BIOPS Y: MULTI PLE FRAGM ENT(S ) OF SOFT MATER IAL, BLOOD , AND MUCUS MEASU RING 3.0 X 3.0 X 0.4 CM IN AGGRE GATE. FILTE RED AND SUBMI TTED IN CASSE TTE(S ) A1. STORM/D RA 07/11 0906 Local Not Available [facility] ([facility]) [address] [facility], [place], [address], 07/13/2023 16:21:52 07/10/19 24 07/13/2023 PATHO LOGY REPOR T . Commen t Patho logis t provi ded ICD-1 0: N85.9 Not Available [facility] ([facility]) [address] [facility], [place], [address], 07/13/2023 16:21:52 07/10/19 24 07/13/2023 PATHO LOGY REPOR T . Commen t CPT . 35812 1 Not Available [facility] ([facility]) [address] [facility], [place], [address], 07/13/2023 16:21:52 07/10/19 24 07/10/2023 pregn elver test, urine HCG negati ve Not Available In-Office Order Internal Use Only DO Not Attach Compendium DO Not Attach Compendium, Do Not Delete/merge, [id number] 07/10/2023 10:47:27 07/24/19 24 07/25/2023 URINE CULTU RE, ROUTI NE urine culture, routine Final report Not Available [facility] ([facility]) [address] [facility], [place], [address], 07/26/2023 07:15:38 07/24/19 24 07/25/2023 URINE CULTU RE, ROUTI NE result 1 Commen t Cultu re shows less than 10,00 0 colon y formi ng units of bacte fredy per rip liter of urine . This colon y count is not gener ally consi dered to be clini tim signi ficnoemi t. Not Available [facility] ([facility]) [address] [place], [address], 07/26/2023 07:15:38 08/22/19 24 08/22/2023 CBC WITH DIFFE RENTI AL/PL ATELE T WBC 10.4 x10e3 /uL 3.4-10 .8 Not Available [facility] ([facility]) [address] [facility], [place], [address], 08/23/2023 03:08:50 08/22/19 24 08/22/2023 CBC WITH DIFFE RENTI AL/PL ATELE T RBC 5.36 x10e6 /uL 3.77-5 .28 above high normal Not Available [facility] ([facility]) [address] [place], [address], 08/23/2023 03:08:50 08/22/19 24 08/22/2023 CBC WITH DIFFE RENTI AL/PL ATELE T hemoglobin 13.9 g/dL 11.1-1 5.9 Not Available [facility] ([facility]) [address] [place], [address], 08/23/2023 03:08:50 08/22/19 24 08/22/2023 CBC WITH DIFFE RENTI AL/PL ATELE T hematocrit 43.2 % 34.0-4 6.6 Not Available [facility] ([facility]) [address] [place], [address], 08/23/2023 03:08:50 08/22/19 24 08/22/2023 CBC WITH DIFFE RENTI AL/PL ATELE T MCV 81 fL 79-97 Not Available [facility] ([facility]) [address] [place], [address], 08/23/2023 03:08:50 08/22/19 24 08/22/2023 CBC WITH DIFFE RENTI AL/PL ATELE T MCH 25.9 pg 26.6-3 3.0 below low normal Not Available [facility] ([facility]) [address] [facility], [place], [address], 08/23/2023 03:08:50 08/22/19 24 08/22/2023 CBC WITH DIFFE RENTI AL/PL ATELE T MCHC 32.2 g/dL 31.5-3 5.7 Not Available [facility] ([facility]) [address] [facility], [place], [address], 08/23/2023 03:08:50 08/22/19 24 08/22/2023 CBC WITH DIFFE RENTI AL/PL ATELE T RDW 14.0 % 11.7-1 5.4 Not Available [facility] ([facility]) [address] [facility], [place], [address], 08/23/2023 03:08:50 08/22/19 24 08/22/2023 CBC WITH DIFFE RENTI AL/PL ATELE T platelets 298 x10e3 /uL 150-45 0 Not Available [facility] ([facility]) [address] [facility], [place], [address], 08/23/2023 03:08:50 08/22/19 24 08/22/2023 CBC WITH DIFFE RENTI AL/PL ATELE T neutrophils 67 % notest ab. Not Available [facility] ([facility]) [address] [place], [address], 08/23/2023 03:08:50 08/22/19 24 08/22/2023 CBC WITH DIFFE RENTI AL/PL ATELE T lymphs 28 % notest ab. Not Available [facility] ([facility]) [address] [place], [address], 08/23/2023 03:08:50 08/22/19 24 08/22/2023 CBC WITH DIFFE RENTI AL/PL ATELE T monocytes 4 % notest ab. Not Available [facility] ([facility]) [address] [facility], [place], [address], 08/23/2023 03:08:50 08/22/19 24 08/22/2023 CBC WITH DIFFE RENTI AL/PL ATELE T eos 1 % notest ab. Not Available [facility] ([facility]) [address] [facility], [place], [address], 08/23/2023 03:08:50 08/22/19 24 08/22/2023 CBC WITH DIFFE RENTI AL/PL ATELE T basos 0 % notest ab. Not Available [facility] ([facility]) [address] [facility], [place], [address], 08/23/2023 03:08:50 08/22/19 24 08/22/2023 CBC WITH DIFFE RENTI AL/PL ATELE T neutrophils (absolute) 6.9 x10e3 /uL 1.4-7. 0 Not Available [facility] ([facility]) [address] [facility], [place], [address], 08/23/2023 03:08:50 08/22/19 24 08/22/2023 CBC WITH DIFFE RENTI AL/PL ATELE T lymphs (absolute) 3.0 x10e3 /uL 0.7-3. 1 Not Available [facility] ([facility]) [address] [facility], [place], [address], 08/23/2023 03:08:50 08/22/19 24 08/22/2023 CBC WITH DIFFE RENTI AL/PL ATELE T monocytes(ab solute) 0.4 x10e3 /uL 0.1-0. 9 Not Available [facility] ([facility]) [address] [facility], [place], [address], 08/23/2023 03:08:50 08/22/19 24 08/22/2023 CBC WITH DIFFE RENTI AL/PL ATELE T eos (absolute) 0.1 x10e3 /uL 0.0-0. 4 Not Available [facility] ([facility]) [address] [facility], [place], [address], 08/23/2023 03:08:50 08/22/19 24 08/22/2023 CBC WITH DIFFE RENTI AL/PL ATELE T baso (absolute) 0.0 x10e3 /uL 0.0-0. 2 Not Available [facility] ([facility]) [address] [facility], [place], [address], 08/23/2023 03:08:50 08/22/19 24 08/22/2023 CBC WITH DIFFE RENTI AL/PL ATELE T immature granulocytes 0 % notest ab. Not Available [facility] ([facility]) [address] [place], [address], 08/23/2023 03:08:50 08/22/19 24 08/22/2023 CBC WITH DIFFE RENTI AL/PL ATELE T immature grans (abs) 0.0 x10e3 /uL 0.0-0. 1 Not Available [facility] ([facility]) [address] [place], [address], 08/23/2023 03:08:50 08/22/19 24 08/23/2023 COMP. METAB OLIC PANEL (14) glucose 84 mg/dL 70-99 Not Available [facility] ([facility]) [address] [place], [address], 08/23/2023 03:08:52 08/22/19 24 08/23/2023 COMP. METAB OLIC PANEL (14) BUN 15 mg/dL 6-20 Not Available [facility] ([facility]) [address] [place], [address], 08/23/2023 03:08:52 08/22/19 24 08/23/2023 COMP. METAB OLIC PANEL (14) creatinine 0.88 mg/dL 0.57-1 .00 Not Available [facility] ([facility]) [address] [place], [address], 08/23/2023 03:08:52 08/22/19 24 08/23/2023 COMP. METAB OLIC PANEL (14) eGFR 93 mL/mi n/1.7 3 >59 Not Available [facility] ([facility]) [address] [place], [address], 08/23/2023 03:08:52 08/22/19 24 08/23/2023 COMP. METAB OLIC PANEL (14) BUN/creatini ne ratio 17 9-23 Not Available [facility] ([facility]) [address] [place], [address], 08/23/2023 03:08:52 08/22/19 24 08/23/2023 COMP. METAB OLIC PANEL (14) sodium 138 mmol/ L 134-14 4 Not Available [facility] ([facility]) [address] [place], [address], 08/23/2023 03:08:52 08/22/19 24 08/23/2023 COMP. METAB OLIC PANEL (14) potassium 4.5 mmol/ L 3.5-5. 2 Not Available [facility] ([facility]) [address] [place], [address], 08/23/2023 03:08:52 08/22/19 24 08/23/2023 COMP. METAB OLIC PANEL (14) chloride 98 mmol/ L 96-106 Not Available [facility] ([facility]) [address] [place], [address], 08/23/2023 03:08:52 08/22/19 24 08/23/2023 COMP. METAB OLIC PANEL (14) carbon dioxide, total 23 mmol/ L 20-29 Not Available [facility] ([facility]) [address] [place], [address], 08/23/2023 03:08:52 08/22/19 24 08/23/2023 COMP. METAB OLIC PANEL (14) calcium 9.8 mg/dL 8.7-10 .2 Not Available [facility] ([facility]) [address] [place], [address], 08/23/2023 03:08:52 08/22/19 24 08/23/2023 COMP. METAB OLIC PANEL (14) protein, total 7.2 g/dL 6.0-8. 5 Not Available [facility] ([facility]) [address] [facility] [place], [address], 08/23/2023 03:08:52 08/22/19 24 08/23/2023 COMP. METAB OLIC PANEL (14) albumin 4.2 g/dL 4.0-5. 0 Not Available [facility] ([facility]) [address] [facility] [place], [address], 08/23/2023 03:08:52 08/22/19 24 08/23/2023 COMP. METAB OLIC PANEL (14) globulin, total 3.0 g/dL 1.5-4. 5 Not Available [facility] ([facility]) [address] [facility] [place], [address], 08/23/2023 03:08:52 08/22/19 24 08/23/2023 COMP. METAB OLIC PANEL (14) A/G ratio 1.4 1.2-2. 2 Not Available [facility] ([facility]) [address] [facility] [place], [address], 08/23/2023 03:08:52 08/22/19 24 08/23/2023 COMP. METAB OLIC PANEL (14) bilirubin, total 0.2 mg/dL 0.0-1. 2 Not Available [facility] ([facility]) [address] [facility] [place], [address], 08/23/2023 03:08:52 08/22/19 24 08/23/2023 COMP. METAB OLIC PANEL (14) alkaline phosphatase 102 IU/L 44-121 Not Available [facility] ([facility]) [address] [place], [address], 08/23/2023 03:08:52 08/22/19 24 08/23/2023 COMP. METAB OLIC PANEL (14) AST (SGOT) 21 IU/L 0-40 Not Available [facility] ([facility]) [address] [place], [address], 08/23/2023 03:08:52 08/22/19 24 08/23/2023 COMP. METAB OLIC PANEL (14) ALT (SGPT) 24 IU/L 0-32 Not Available [facility] ([facility]) [address] [place], [address], 08/23/2023 03:08:52 08/22/19 24 08/23/2023 VITAM IN B12 AND FOLAT E vitamin B12 637 pg/mL 232-12 45 Not Available [facility] ([facility]) [address] [place], [address], 08/23/2023 08:23:39 08/22/19 24 08/23/2023 VITAM IN B12 AND FOLAT E folate (folic acid), serum 10.3 NG/mL >3.0 A serum folat e ruel ntrat ion of less than 3.1 ng/mL is consi dered to repre sent clini [place] defic iency . Not Available [facility] ([facility]) [address] [place], [address], 08/23/2023 08:23:39 08/22/19 24 08/23/2023 IRON AND TIBC iron bind.cap.(TI BC) 360 ug/dL 250-45 0 Not Available [facility] ([facility]) [address] [place], [address], 08/23/2023 08:23:40 08/22/19 24 08/23/2023 IRON AND TIBC UIBC 309 ug/dL 131-42 5 Not Available [facility] ([facility]) [address] [facility], [place], [address], 08/23/2023 08:23:40 08/22/19 24 08/23/2023 IRON AND TIBC iron 51 ug/dL 27-159 Not Available [facility] ([facility]) [address] [facility], [place], [address], 08/23/2023 08:23:40 08/22/19 24 08/23/2023 IRON AND TIBC iron saturation 14 % 15-55 below low normal Not Available [facility] ([facility]) [address] [facility], [place], [address], 08/23/2023 08:23:40 08/22/19 24 08/23/2023 RA TIN ferritin 22 NG/mL 15-150 Not Available [facility] ([facility]) [address] [facility] [place], [address], 08/23/2023 08:23:41 08/22/19 24 08/23/2023 VITAM IN D, 25-HY DROXY vitamin D, 25-hydroxy 31.0 NG/mL 30.0-1 00.0 Vitam in D defic iency has been defin ed by the Insti tute of Medic ine and an Endoc rine Socie ty pract ice guide line as a level of serum 25-OH vitam in D less than 20 ng/mL (1,2) . The Endoc rine Socie ty went on to furth er defin e vitam in D insuf ficie ncy as a level betwe en 21 and 29 ng/mL (2). 1. IOM (Inst itute of Medic ine). 2010. Dieta ry refer ence nessa es for calci um and D. Delmar valdes [place]: The Natio nal [facility] Press . 2. Holic k MF, Tao vidal [place], Juan Manuel off-F errar i MEJIA, et al. Evalu ation , treat ment, and preve ntion of vitam in D defic iency : an Endoc rine Socie ty clini [place] pract ice guide line. JCEM. 2010; 96(7) :1911 -30. Not Available [facility] ([facility]) [address], [place], [address], 08/23/2023 08:23:41 09/27/19 24 09/27/2023 pregn elver test, urine HCG negati ve Not Available In-Office Order Internal Use Only DO Not Attach Compendium DO Not Attach Compendium, Do Not Delete/merge, 09/27/2023 11:42:19 09/27/19 24 09/27/2023 urina lysis , dipst ick Leukocytes Negati ve Not Available In-Office Order Internal Use Only DO Not Attach Compendium DO Not Attach Compendium, Do Not Delete/merge, 09/27/2023 11:42:18 09/27/19 24 09/27/2023 urina lysis , dipst ick Nitrite negati ve Not Available In-Office Order Internal Use Only DO Not Attach Compendium DO Not Attach Compendium, Do Not Delete/merge, 09/27/2023 11:42:18 09/27/19 24 09/27/2023 urina lysis , dipst ick Urobilinogen .2 Not Available In-Of fice Order Internal Use Only DO Not Attach Compendium DO Not Attach Compendium, Do Not Delete/merge, 09/27/2023 11:42:18 09/27/19 24 09/27/2023 urina lysis , dipst ick Protein Negati ve Not Available In-Office Order Internal Use Only DO Not Attach Compendium DO Not Attach Compendium, Do Not Delete/merge, 09/27/2023 11:42:18 09/27/19 24 09/27/2023 urina lysis , dipst ick pH 7.0 Not Available In-Office Order Internal Use Only DO Not Attach Compendium DO Not Attach Compendium, Do Not Delete/merge, 09/27/2023 11:42:18 09/27/19 24 09/27/2023 urina lysis , dipst ick Blood Negati ve Not Available In-Office Order Internal Use Only DO Not Attach Compendium DO Not Attach Compendium, Do Not Delete/merge, 09/27/2023 11:42:18 09/27/19 24 09/27/2023 urina lysis , dipst ick Specific [place] 1.025 Not Available In-Off ice Order Internal Use Only DO Not Attach Compendium DO Not Attach Compendium, Do Not Delete/merge, 09/27/2023 11:42:18 09/27/19 24 09/27/2023 urina lysis , dipst ick Ketone Negati ve Not Available In-Office Order Internal Use Only DO Not Attach Compendium DO Not Attach Compendium, Do Not Delete/merge, 09/27/2023 11:42:18 09/27/19 24 09/27/2023 urina lysis , dipst ick Bilirubin Negati ve Not Available In-Office Order Internal Use Only DO Not Attach Compendium DO Not Attach Compendium, Do Not Delete/merge, 09/27/2023 11:42:18 09/27/19 24 09/27/2023 urina lysis , dipst ick Glucose Negati ve Not Available In-Office Order Internal Use Only DO Not Attach Compendium DO Not Attach Compendium, Do Not Delete/merge, 09/27/2023 11:42:18 09/27/19 24 09/27/2023 urina lysis , dipst ick Appearance Clear Not Available In-Offi ce Order Internal Use Only DO Not Attach Compendium DO Not Attach Compendium, Do Not Delete/merge, 09/27/2023 11:42:18 09/27/19 24 09/27/2023 urina lysis , dipst ick Color Yellow Not Available In-Office Order Internal Use Only DO Not Attach Compendium DO Not Attach Compendium, Do Not Delete/merge, 09/27/2023 11:42:18 02/27/20 24 02/27/2024 rapid flu (A+B) Flu A negati ve Not Available In-Office Order Internal Use Only DO Not Attach Compendium DO Not Attach Compendium, Do Not Delete/merge, [id number] 02/27/2024 12:40:05 02/27/20 24 02/27/2024 rapid flu (A+B) Flu B negati ve Not Available In-Office Order Internal Use Only DO Not Attach Compendium DO Not Attach Compendium, Do Not Delete/merge, [id number] 02/27/2024 12:40:05 02/27/20 24 02/27/2024 rapid SARS CoV 2 Ag, QL IA, respi rator y speci men rapid SARS CoV 2 Ag, QL IA, respiratory specimen negati ve Not Available In-Office Order Internal Use Only DO Not Attach Compendium DO Not Attach Compendium, Do Not Delete/merge, [id number] 02/27/2024 12:40:05 06/20/19 24 06/14/2023 US, pelvi s, trans abdom inal + trans vagin al No observ ation record ed. sundeep Bermudez (Radiology) [address] [place], [address], 06/21/2023 13:29:34 Result Notes None recorded. Problems Name Problem SNOMED Code Status Onset Date Resolution Date Notes Provider Name and Address Organization Details Recorded Time Essential hypertensio n 08286378 Active 2018 ROX ROYAL NP Attn: Ashu hernadez,[address] [facility], [place], [address], [facility] - [facility] 2 16:25:55 Morbid obesity 414589718 Active 2018 ROX ROYAL NP Attn: Ashu g,[address] [facility], [place], [address], [facility] - [facility] 2 16:26:05 Vitamin D deficiency 29701927 Active 2019 ROX ROYAL NP Attn: Ahsu g,[address] [facility], [place], [address], [facility] - [facility] 2 16:26:20 Edema of lower extremity 347778451 Active 2019 Damian Verde null, [place] - [facility] 0 09:20:35 Vaginal discharge 695488919 Active 2021 Keyla NationmonALON moore null, [place] - [facility] 2 10:44:07 Anxiety 86021425 Active 2021 ROX ROYAL NP Attn: Ashu g,[address] [place], [address], [place] - [facility] 3 10:57:47 Chest discomfort 777318241 Active 2021 ROX ROYAL NP Attn: Ashu g,[address] [place], [address], [place] - [facility] 2 20:57:31 Body mass index 40+ - severely obese 101859007 Active 2021 ROX ROYAL NP Attn: Ashu g,[address] [place], [address], [place] - [facility] 2 20:57:33 Sleep pattern disturbance 45462606 Active 2021 ROX ROYAL NP Attn: Ashu g,[address] [place], [address], [place] [facility] 2 20:58:59 History of bariatric surgical procedure 276716800 Active 2022 ROX ROYAL NP Attn: Ashu g,[address] [place], [address], [place] - [facility] 3 09:47:35 Lesion of scalp 912013628950 Active 2023 ROX ROYAL NP Attn: Ashu g,[address] [place], [address], [place] - [facility] 4 11:28:01 Problem Notes None recorded. Procedures Surgical History Date Name Laterality Status Provider Name and Address Organization Details Recorded Time 07/10/19 24 Endometrial Biopsy completed Ronen Strickland MD Attn: Accounting,[address] [place], [address], [facility] - [facility] 07/10/2023 12:28:47 06/11/19 24 Date of Last Pap Smear completed Denisse Carpenter [place] - [facility] 07/10/2023 10:45:06 01/18/20 23 laparoscopic sleeve gastrectomy completed SALMA Rollins Attn: Accounting,[address] [facility], [place], [address], [facility] - [facility] 06/20/2023 16:18:55 08/01/19 23 Endometrial Biopsy completed SALMA Rollins Attn: Accounting,[address] [facility], [place], [address], [facility] - [facility] 08/01/2022 11:07:08 procedure on gallbladder completed Precious Munoz [place] - [facility] 04/11/2019 15:04:23 Other completed Precious Munoz [place] - [facility] 04/11/2019 15:04:16 Imaging Results Imaging Date Name Status LastModified by Organization Details LastModified Time 06/14/2023 US, pelvis, transabdominal + transvaginal completed sundeep Bermudez (Radiology) [address] [facility] [place], [address], 06/21/2023 13:29:34 Procedure Notes None recorded. Medical Equipment None Reported. Allergies Allergen ID Allergen Name Allergen Category Reaction Reaction Severity Criticality Documentation Date Start Date Code Code System Note Provider Name and Address Organization Details Recorded Time 814347 Medicinal product containin g penicilli n and acting as antibacte rial agent (product) medicatio n hives Not available Not available 05/15/2018 12771 05 SNOMED MARINA Helm, [place] - [facility] 8 14:50:05 Medications Name Sig Start Date Stop Date Status Note LastModified by Organization Details LastModified Time medroxyprog esterone 10 mg tablet TAKE 1 TABLET BY MOUTH EVERY DAY FOR 10 DAYS active Not Available Not Available No t Available methocarbam ol 500 mg tablet active Not Available Not Available Not Available doxycycline hyclate 100 mg capsule 01/23 completed Not Available Not Available Not Available ropinirole 1 mg tablet TAKE 1 TABLET BY MOUTH EVERY NIGHT 12/13 completed Not Available Not Available Not Available clindamycin HCl 300 mg capsule TAKE 1 CAPSULE BY MOUTH EVERY 8 HOURS FOR 10 DAYS 01/17 completed Not Available Not Available Not Available azithromyci n 250 mg tablet 01/13 completed Not Available Not Available Not Available ibuprofen 800 mg tablet 12/13 completed Not Available Not Available Not Available Lidocaine Viscous 2 % mucosal solution APPLY TO GUM AREA FOUR TIMES DAILY FOR PAIN 05/15 completed Not Available Not Available Not Available fluconazole 150 mg tablet TAKE 1 TABLET BY MOUTH DAILY 05/15 completed Not Available Not Available Not Available benzonatate 200 mg capsule TAKE 1 CAPSULE BY MOUTH THREE TIMES DAILY NEEDED FOR COUGH 12/13 completed Not Available Not Available Not Available hydrocodone 5 mg-acetamin ophen 325 mg tablet TAKE 1 TABLET BY MOUTH TWICE DAILY NEEDED FOR PAIN 12/13 completed Not Available Not Available Not Available phenazopyri dine 200 mg tablet Take 1 tablet 3 times a day by oral route for 2 days. 08/21 completed Not Available Not Available Not Available ondansetron HCl 4 mg tablet active Not Available Not Available Not Available prednisone 20 mg tablet TAKE 2 TABLETS BY MOUTH DAILY FOR 5 DAYS 12/13 completed Not Available Not Available Not Available metronidazo le 500 mg tablet TAKE 1 TABLET BY MOUTH EVERY 12 HOURS 06/12 completed Not Available Not Available Not Available phentermine 37.5 mg tablet active Not Available Not Available Not Available acyclovir 400 mg tablet TAKE 1 TABLET BY MOUTH TWICE DAILY 01/17 completed Not Available Not Available Not Available ciprofloxac in 500 mg tablet TAKE 1 TABLET BY MOUTH EVERY DAY FOR 3 DAYS 08/21 completed Not Available Not Available Not Available sulfamethox azole 800 mg-trimetho prim 160 mg tablet TAKE 1 TABLET BY MOUTH TWICE DAILY FOR 10 DAYS 08/21 completed Not Available Not Available Not Available tramadol 50 mg tablet TAKE 1 TABLET BY MOUTH EVERY 8 HOURS NEEDED FOR MODERATE TO SEVERE PAIN 05/15 completed Not Available Not Available Not Available ketorolac 10 mg tablet 01/13 completed Not Available Not Available Not Available famotidine 20 mg tablet TAKE 1 TABLET BY MOUTH DAILY 03/26 completed Not Available Not Available Not Available estradiol 1 mg tablet active Not Available Not Available No t Available docusate sodium 100 mg capsule 03/26 completed Not Available Not Available Not Available triamterene 37.5 mg-hydrochl orothiazide 25 mg tablet TAKE 1 TABLET BY MOUTH EVERY DAY active Not Available Not Available No t Available omeprazole 20 mg capsule,del ayed release TAKE 1 CAPSULE BY MOUTH DAILY 12/13 completed Not Available Not Available Not Available hydroxyzine HCl 25 mg tablet TAKE 1 TABLET BY MOUTH EVERY DAY IN THE EVENING 05/15 completed Not Available Not Available Not Available hydrochloro thiazide 25 mg tablet Take 1 tablet every day by oral route. 01/13 completed Not Available Not Available Not Available metoprolol succinate ER 25 mg tablet,exte nded release 24 hr TAKE 1 TABLET BY MOUTH EVERY DAY active Not Available Not Available No t Available ibuprofen 600 mg tablet Take 1 tablet every 8 hours by oral route as needed. 01/13 completed Not Available Not Available Not Available levofloxaci n 500 mg tablet 01/23 completed Not Available Not Available Not Available albuterol sulfate HFA 90 mcg/actuati on aerosol inhaler INHALE 2 PUFFS BY MOUTH EVERY 4 HOURS NEEDED FOR SHORTNESS OF BREATH /WHEEZING 12/13 completed Not Available Not Available Not Available ondansetron 4 mg disintegrat ing tablet DISSOLVE 1 TABLET ON THE TONGUE EVERY 4 HOURS NEEDED FOR NAUSEA OR VOMITING active Not Available Not Available No t Available fluticasone propionate 50 mcg/actuati on nasal spray,suspe nsion [place] 1 spray every day by intranasa l route. 2023 active Not Available Not Available Not Avai lable doxycycline hyclate 100 mg tablet 06/12 completed Not Available Not Available Not Available naproxen 500 mg tablet active Not Available Not Available Not Available metoclopram shaista 10 mg tablet 01/30 completed Not Available Not Available Not Available amoxicillin 875 mg-potassiu m clavulanate 125 mg tablet TAKE 1 TABLET BY MOUTH EVERY 12 HOURS FOR 10 DAYS 12/13 completed Not Available Not Available Not Available oxycodone 5 mg tablet 03/26 completed Not Available Not Available Not Available azithromyci n 500 mg tablet TAKE 1 TABLET BY MOUTH DAILY FOR 5 DAYS MUST REFILL TO COMPLETE COURSE 02/26 completed Not Available Not Available Not Available Vitamin D3 25 mcg (1,000 unit) tablet Take 1 tablet every day by oral route. 04/25 completed Not Available Not Available Not Available cyclobenzap rine 5 mg tablet TAKE 1 TABLET BY MOUTH THREE TIMES DAILY FOR 5 DAYS 05/15 completed Not Available Not Available Not Available clonazepam 0.25 mg disintegrat ing tablet 01/30 completed Not Available Not Available Not Available Tri-Sprinte c (28) 0.18 mg(7)/0.215 mg(7)/0.25 mg(7)-35 mcg tablet Take 1 tablet every day by oral route. 04/07 completed Not Available Not Available Not Available topiramate 50 mg tablet active Not Available Not Available Not Available nitrofurant oin monohydrate /macrocryst als 100 mg capsule TAKE 1 CAPSULE BY MOUTH EVERY 12 HOURS FOR 5 DAYS 08/21 completed Not Available Not Available Not Available Seasonique 0.15 mg-30 mcg (84)/10 mcg(7) tablets,3 month dose pack Take 1 tablet every day by oral route. 01/23 completed Not Available Not Available Not Available Estarylla 0.25 mg-35 mcg tablet Take 1 tablet every day by oral route. 01/23 completed Not Available Not Available Not Available Xulane 150 mcg-35 mcg/24 hr transdermal patch 01/13 completed Not Available Not Available Not Available 1 mg-20 mcg (24)/75 mg (4) tablet Take 1 tablet every day by oral route. 01/23 completed Not Available Not Available Not Available Slynd 4 mg (28) tablet Take 1 tablet every day by oral route. 09/20 completed Not Available Not Available Not Available Wegovy 0.25 mg/0.5 mL subcutaneou s pen injector Inject by subcutane ous route for 30 days. 08/21 completed Not Available Not Available Not Available Vitals Date Recorded Body height Body mass index (BMI) Body weight Heart rate Systolic blood pressure Diastolic blood pressure Provider Name and Address Organization Details Last Updated DateTime 4 165.1 cm 46.2 kg/m2 157748. 52 g 72 /min 130 mm[Hg] 82 mm[Hg] Denisse Carpenter MA [facility] 4 10:43:58 Date Recorded Body height Body mass index (BMI) Body weight Oxygen saturation Oxygen saturation in Arterial blood by Pulse oximetry Heart rate Respiratory rate Body temperature Systolic blood pressure Diastolic blood pressure Provider Name and Address Organization Details Last Updated DateTime 4 165.1 cm 44.4 kg/m2 141660. 72 g 99 % 99 % 83 /min 16 /min 97.1 [degF] 125 mm[Hg] 84 mm[Hg] Radha Unger LPN [facility] 4 10:43:47 Date Recorded Body height Body mass index (BMI) Body weight Oxygen saturation Oxygen saturation in Arterial blood by Pulse oximetry Heart rate Respiratory rate Body temperature Systolic blood pressure Diastolic blood pressure Provider Name and Address Organization Details Last Updated DateTime 4 165.1 cm 44.1 kg/m2 207053. 03 g 98 % 98 % 91 /min 16 /min 97.3 [degF] 136 mm[Hg] 80 mm[Hg] Radha Unger LPN [facility] 4 09:46:21 Date Recorded Body height Body mass index (BMI) Body weight Systolic blood pressure Diastolic blood pressure Provider Name and Address Organization Details Last Updated DateTime 09/27/2023 165.1 cm 44.6 kg/m2 811830.7 6 g 136 mm[Hg] 89 mm[Hg] ALON Link [facility] 4 11:37:20 Date Recorded Body height Body mass index (BMI) Body weight Oxygen saturation Oxygen saturation in Arterial blood by Pulse oximetry Heart rate Respiratory rate Body temperature Systolic blood pressure Diastolic blood pressure Provider Name and Address Organization Details Last Updated DateTime 4 165.1 cm 43.3 kg/m2 516384. 02 g 96 % 96 % 72 /min 16 /min 97 [degF] 131 mm[Hg] 84 mm[Hg] Radha Unger LPN [facility] 4 12:29:47 Social History Question Answer Notes LastModified by Organizat ion Details LastModified Time Tobacco Smoking Status Never Smoker MARINA Helm, [facility] 05/15/2018 14:52:05 Do You Have An Advance Directive? No Information not available 09/08/2019 What Is Your Level Of Alcohol Consumption? None Information not available 06/20/2023 Are You Blind Or Do You Have Difficulty Seeing? No Information not available 09/20/2020 Is Blood Transfusion Acceptable In An Emergency? Yes Information not available 09/08/2019 What Is Your Level Of Caffeine Consumption? Heavy 1- Large Iced Coffee Daily Information not available 09/20/2020 How Much Tobacco Do You Chew? None Information not available 09/08/2019 In The 14 Days Before Symptom Onset, Have You Had Close Contact With A Laboratory-confir med COVID-19 While That Case Was Ill? No Information not available 04/25/2021 In The 14 Days Before Symptom Onset, Have You Had Close Contact With A Person Who Is Under Investigation For COVID-19 While That Person Was Ill? No Information not available 04/25/2021 Have You Been To An Area Known To Be High Risk For COVID-19? No Information not available 04/25/2021 Are You Currently Employed? No Information not available 04/25/2021 Are You Deaf Or Do You Have Serious Difficulty Hearing? No Information not available 09/20/2020 What Type Of Diet Are You Following? REGULAR Information not available 09/08/2019 Which Illicit Or Recreational Drugs Have You Used? Denies Information not available 09/08/2019 Do You Or Have You Ever Used E-cigarettes Or Vape? Never Used Electronic Cigarettes Information not available 09/08/2019 Education 10 Information no t available 09/08/2019 Are There Any Guns Present In Your Home? No Information not available 05/15/2022 Live Alone Or With Others? With Others Information not available 04/25/2021 What Was The Date Of Your Most Recent Tobacco Screening? 02/27/2024 Information not available 02/27/2024 How Many Children Do You Have? 0 Information not available 09/08/2019 Performs Monthly Self-breast Exam? No Information no t available 09/08/2019 Do You Use Protection During Sex? No Information not available 09/08/2019 What Is Your Relationship Status? Information not available 04/25/2021 Do You Use Your Seat Belt Or Car Seat Routinely? Yes Information not available 04/25/2021 Seat Belts Used Routinely Yes Information not available 09/08/2019 Are You Sexually Active? Yes Information not available 09/08/2019 Do You Have Smoke And Carbon Monoxide Detectors In Your Home? Yes Information not available 09/20/2020 Are You Passively Exposed To Smoke? No Information no t available 09/20/2020 Do You Or Have You Ever Used Smokeless Tobacco? Never Used Smokeless Tobacco Information not available 04/27/2020 How Much Tobacco Do You Smoke? No Information not available 10/21/2019 General Stress Level Medium Information not available 09/08/2019 Do You Feel Stressed (tense, Restless, Nervous, Or Anxious, Or Unable To Sleep At Night)? [id number] Information not available 04/25/2021 Do You Use Any Illicit Or Recreational Drugs? No Denies Information not available 09/20/2020 Do You Use Sunscreen Routinely? Yes Information not available 09/08/2019 Has Tobacco Cessation Counseling Been Provided? No Information not available 09/20/2020 On What Date Was Tobacco Cessation Counseling Provided? 07/10/2023 [email or web address] Information not available 07/10/2023 Do You Or Have You Ever Used Any Other Forms Of Tobacco Or Nicotine? No Information not available 09/20/2020 Sex: Female Functional Status Question Answer Note LastModified by Organizat ion Details LastModified Time Are you able to care for yourself? Yes Information not available 09/20/2020 What is your exercise level? Occasional Information not available 09/08/2019 Mental Status None recorded. Family History Relationship Description Onset Age of this Age Resolved Age Notes LastModified by Organization Details LastModified Time Mother No current problems or disability [email or web address] Not available 05/15 14:52:00 Father Hypertensive disorder [email or web address] Not available 2017 14:53:31 Medical History Condition Response Other N High Blood Pressure N Breast Cancer N Thyroid Problems N Kidney or Bladder Problems N Lung Disease N GI Problems N Depression N Blood Clots N Acne N Breast Problem N Eating Disorder N Anemia N Anesthesia Complications N Headaches/Migraines N Ovarian Cancer N Diabetes N Anxiety Disorder N Muscle, Joint, or Bone Problems N Blood Transfusions N Seizures/Epilepsy N Polyps N Infertility N Acid Reflux (GERD) N Cancer N Abuse/Domestic Violence N Asthma N Endometriosis N High Cholesterol N Hepatitis N Liver Disease N Heart Disease N Pre-Eclampsia N Osteoporosis N Gynecological History Statement/Question Response Flow Light Sexually Active? Y Menses Monthly Y STIs/STDs N HPV Vaccine N Date of Last Pap Smear 06/11/2023 Sexual Problems? N Duration of Flow (days) 5 Current Control Method None Age at Menarche 12 LMP Approximate Obstetrics History GPAL:G 0 P 0 0 0 0 Immunizations Vaccine Type Date Status Note Provider Nam e and Address Organization Details Recorded Time Meningococcal MCV4O 3 completed ROX ROYAL NP Attn: Accounting,[address] [place], [place], [address] [place] [address], [place] [facility] 05/15/2022 08:54:06 Influenza, split virus, quadrivalent, PF 5 completed ROX ROYAL NP Attn: Accounting,[address] [place], [place], [address] [place] [address], [place] [facility] 05/15/2022 08:54:06 IPV 9 completed ROX ROYAL NP Attn: Accounting,[address] [place], [address] [place] [address], [place] [facility] 05/15/2022 08:54:06 Hib, unspecified formulation 0 completed ROX ROYAL NP Attn: Accounting,[address] [place], [address] [place] [address], [place] [facility] 05/15/2022 08:54:06 Tdap 3 completed ROX ROYAL NP Attn: Accounting,[address] [place], [address] [place] [address], [place] [facility] 05/15/2022 08:54:06 Hib, unspecified formulation 8 completed ROX LELE, HAND LAUNDERER Attn: Accounting,[address] [facility], [place], [address], [place] [facility] 05/15/2022 08:54:06 Hib, unspecified formulation 9 completed ROX ROYAL, HAND LAUNDERER Attn: Accounting,[address] [facility], [place], [address], [place] [facility] 05/15/2022 08:54:07 HPV9 5 completed ROX GALARZAER, HAND LAUNDERER Attn: Accounting,[address] [facility], [place], [address], [place] [facility] 05/15/2022 08:54:07 Hep A, ped/adol, 2 dose 3 completed ROX ROYAL, HAND LAUNDERER Attn: Accounting,[address] [facility], [place], [place], [address] [place] [address], [place] [facility] 05/15/2022 08:54:07 IPV 8 completed ROX ROYAL, HAND LAUNDERER Attn: Accounting,[address] [facility], [place], [address] [place] [address], [place] [facility] 05/15/2022 08:54:07 COVID-19, mRNA, LNP-S, PF, 30 mcg/0.3 mL dose, jen-sucrose 2 completed ROX ROYAL, HAND LAUNDERER Attn: Accounting,[address] [facility], [place], [address], [place] [facility] 05/15/2022 08:54:07 meningococcal MCV4P 5 completed ROX ROYAL, HAND LAUNDERER Attn: Accounting,[address] [facility], [place], [address], [place] [facility] 05/15/2022 08:54:07 IPV 9 completed ROX ROYAL, HAND LAUNDERER Attn: Accounting,[address] [facility], [place], [address], [place] [facility] 05/15/2022 08:54:07 HPV, quadrivalent 5 completed ROX ROYAL, HAND LAUNDERER Attn: Accounting,[address] [facility], [place], [address], [place] [facility] 05/15/2022 08:54:07 MMR 3 completed ROX ROYAL, HAND LAUNDERER Attn: Accounting,[address] [facility], [place], [address], [place] [facility] 05/15/2022 08:54:07 DTaP 3 completed ROX ROYAL, HAND LAUNDERER Attn: Accounting,[address] [facility], [place], [address], [place] [facility] 05/15/2022 08:54:07 IPV 3 completed ROX ROYAL, HAND LAUNDERER Attn: Accounting,[address] [facility], [place], [address], [place] [facility] 05/15/2022 08:54:07 COVID-19, mRNA, LNP-S, PF, 30 mcg/0.3 mL dose, jen-sucrose 2 completed ROX ROYAL, HAND LAUNDERER Attn: Accounting,[address] [facility], [place], [address], [place] [facility] 05/15/2022 08:54:07 Hep B, adolescent or pediatric 9 completed ROX ROYAL, HAND LAUNDERER Attn: Accounting,[address] [facility], [place], [address], [place] [facility] 05/15/2022 08:54:07 Hib, unspecified formulation 9 completed ROX ROYAL, HAND LAUNDERER Attn: Accounting,[address] [facility], [place], [address], [place] [facility] 05/15/2022 08:54:07 IPV 9 completed ROX ROYAL HAND LAUNDERER Attn: Accounting,[address] [facility], [place], [address], [place] [facility] 05/15/2022 08:54:07 MMR 0 completed ROX ROYAL, HAND LAUNDERER Attn: Accounting,[address] [facility], [place], [address], [place] [facility] 05/15/2022 08:54:07 Hep A, ped/adol, 2 dose 5 completed ROX ROYAL, HAND LAUNDERER Attn: Accounting,[address] [facility], [place], [address] [place] [address], [place] [facility] 05/15/2022 08:54:07 DTaP, 5 pertussis antigens 9 completed ROX ROYAL, HAND LAUNDERER Attn: Accounting,[address] [facility], [place], [address] [place] [address], [place] [facility] 05/15/2022 08:54:07 HPV, quadrivalent 3 completed ROX ROYAL HAND LAUNDERER Attn: Accounting,[address] [facility], [place], [address] [place] [address], [place] [facility] 05/15/2022 08:54:07 Hep B, adolescent or pediatric 8 completed ROX ROYAL HAND LAUNDERER Attn: Accounting,[address] [facility], [place], [address] [place] [address], [place] [facility] 05/15/2022 08:54:07 DTaP 8 completed ROX ROYAL, HAND LAUNDERER Attn: Accounting,[address] [facility], [place], [address] [place] [address], [place] [facility] 05/15/2022 08:54:07 varicella 3 completed ROX ROYAL HAND LAUNDERER Attn: Accounting,[address] [facility], [place], [address] [place] [address], [place] [facility] 05/15/2022 08:54:07 varicella 0 completed ROX ROYAL, HAND LAUNDERER Attn: Accounting,[address] [facility], [place], [address] [place] [address], [place] [facility] 05/15/2022 08:54:07 DTaP 9 completed ROX ROYAL, HAND LAUNDERER Attn: Accounting,[address] [facility], [place], [address] [place] [address], [place] [facility] 05/15/2022 08:54:07 Hep B, adolescent or pediatric 8 completed ROX ROYAL NP Attn: Accounting,[address] [facility], [place], [address], [facility] 05/15/2022 08:54:07 DTaP 0 completed ROX ROYAL NP Attn: Accounting,[address] [facility], [place], [address], [facility] 05/15/2022 08:54:07 Hib (PRP-T) 9 completed ROX ROYAL NP Attn: Accounting,[address] [facility], [place], [address], [facility] 05/15/2022 08:54:07 DTaP 9 completed ROX ROYAL NP Attn: Accounting,[address] [facility], [place], [address], [facility] 05/15/2022 08:54:07 Past Encounters Encounter ID Performer Location Encounter Start Date Encounter Closed Date Diagnosis/Indication Diagnosis SNOMED-CT Code Diagnosis ICD10 Code Diagnosis Note [id number] SALMA Rollins 14 OB [address] [facility] [address] [place] [address] 05/15/2018 14:36:36 05/16/2018 11:00:53 Venereal disease screening 492891605 Z11.3 Pt wanted serum std screening. Pt was recently tested on 04/29/18 for gonorrhea, chlamydia, & trichomona s and was negative. Counseled on safe sex, condom use and STD precaution s discussed Screening completed per patient's request. Abnormal u terine bleeding [id number] 9100 N93.9 Labs ordered related to irregular menses. Discussed options for managing menses including lifestyle modificati ons. Pt decided on ALEXI. Risks of hormonal control reviewed, patient was informed of risk including but not limited to thrombosis , embolism, pulmonary embolism, stroke, disability , sexual dysfunctio n & . Patient understand s these risk are increased with smoking. Pt understand s & accepts risks. Instructio ns/warning signs given. Safe sex counseling done. Follow up after pelvic us and call office if symptoms worsen. Pain in pelvis 44168190 R10.2 UA negative. Urine culture sent related to pelvic pain. Pt has history of ovarian cysts. Pelvic US ordered. Pt was recently tested on 04/29/18 for gonorrhea, chlamydia, & trichomona s and was negative. Pt notified to follow up after pelvic US. Pt notified to call office if symptoms worsen and if severe go to er. Childhood obesity 141655 003 Z68.54 Pt educated on lifestyle modificati ons for management of obesity. Pt educated on exercise and nutrition. Pt educated on adverse effect of obesity. Pt interested in dietitian referral. Referral ordered. Pt also notified to follow up with PCP management . [id number] SALMA Rollins 14 OB [address] [facility] [place] [address] 09/27/2018 09:59:12 09/30/2018 08:38:36 Contraception care management 758352905 Z30.9 Discussed all options including depo, IUD, POP and CHC. Pt decided on seasonique . Risks of hormonal control reviewed, patient was informed of risk including but not limited to thrombosis , embolism, pulmonary embolism, stroke, disability , sexual dysfunctio n & . Patient understand s these risk are increased with smoking. Pt understand s & accepts risks. Instructio ns/warning signs given. Safe sex counseling done. Follow up in 1 month. Cyst of ovary 86026192 N 83.209 Small ovarian cyst seen on ct scan in ER on 09/25/18. Pt given US order to follow up on ovarian cyst in 6 weeks. Follow up after US. Dysmenorrhea 364652534 N 94.6 Patient educated on lifestyle modificati ons and medication s for management of dysmenorrh ea. Take ibuprofen 600 mg with food 3 times a day for menstrual cramps. Call office if cramps worsen or pain is not controlled with med. FOllow up in 1 month Anemia 034996490 D64.9 Mild anemia noted in ER. Follow up labs ordered. [id number] HUNTER Doe 14 OB [address] [facility] [place] [address] 01/17/2019 09:08:33 01/20/2019 09:25:04 Venereal disease screening 378809866 Z11.3 1. STD testing done per pt request 2. Educated pt on STD prevention , Condom use 3. Pt verbalized understand ing 4. Will follow up pending lab results, as needed or at next annual At [facility] risk of urinary tract infection 480550112 Z91.89 1. Will send meds out for UTI 2. Pt instructed to increase fluids, decrease soda, sugary beverages and caffeinate d beverages. 3. To call office if symptoms worsen or do not improve with treatment. Contracept ion care management 047098826 Z30.9 Pt encouraged to keep period tracker for next several months. Educated on things that can cause cycle to become irregular including but not limited to stress, exercise, weight loss, weight gain, major life changes etc. Pt verbalized understand ing. Will follow up in 3 months to discuss if meds are helping and if to continue on ocp therapy. Cyst of ovary 96210459 N 83.209 Reviewed ultrasound results. Pt aware that treating with ocp is sufficient at this time. 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 Reviewed transmissi on and prevention of STD's including condom use2. Reviewed medication use and instructio n on taking all meds to prevention occurences .3. Pt informed to have partner(s) informed and treated and avoid intercours e during breakouts. [facility] 728545260 Z30.9 1. Reviewed all forms of control with patient including risk factors and side effects. 2. Counseled on STD transmissi on and prevention , condom use and prevention . 3. Pt would like to continue with OCP. Educated on correct use and side effects. Will send rx to pharmacy. 4. Follow up for med check in 12 months, sooner if needed. [id number] HUNTER Doe [address] [facility] [place] [address] 01/30/2019 10:52:58 01/31/2019 08:49:34 Menorrhagia 360894813 N92.0 Pt encouraged to keep period tracker for next several months. Educated on things that can cause cycle to become irregular including but not limited to stress, exercise, weight loss, weight gain, major life changes etc. Pt verbalized understand ing. will try estradiol to cease cycle (pt to stop taking ocp). recent ultrasound showed small cyst and blood work wnl. At [facility] risk of urinary tract infection 830399288 Z91.89 1. Will send meds out for UTI, continue antibiotic that hospital prescribed 2. Pt instructed to increase fluids, decrease soda, sugary beverages and caffeinate d beverages. 3. To call office if symptoms worsen or do not improve with treatment. [facility] ion care management 822498532 Z30.9 1. Reviewed all forms of control with patient including risk factors and side effects. 2. Counseled on STD transmissi on and prevention , condom use and prevention . 3. Pt would like to try Nuvaring. Pt educated on use, side effects and risk factors. [id number] SALMA Rollins 14 OB [address] [facility] [address] [place] [address] 04/07/2019 11:53:53 04/08/2019 08:42:28 Contraception care management 691764301 Z30.9 Discussed all options including but limited to depo, IUD, POP and CHC. Pt decided on patch. Risks of hormonal control reviewed, patient was informed of risk including but not limited to thrombosis , embolism, pulmonary embolism, stroke, disability , sexual dysfunctio n & . Patient understand s these risk are increased with smoking. Pt understand s & accepts risks. pt notified if serum hcg negative, then okay to start patch. Instructio ns/warning signs given. Safe sex counseling done. Follow up in 3 month and as needed. Pt verbalized follow up plan may change based on lab results. Cyst of ovary 82570611 N 83.209 pt wanting US repeated. pt denies pelvic pain but has history of ovarian cyst. pt declined pelvic exam. Pelvic us repeated. Pt notified to follow up after pelvic US. Dysmenorrhea 479855044 N 94.6 Patient educated on management of dysmenorrh ea. Pt wanting to start patch and ibuprofen for management . Pt educated on risks of medication including possible adverse effects and side effects and pt verbalized understand ing. Instructio ns/warning signs given. Follow up in 3 months and as needed. Anemia 494866634 D64.9 Mild anemia noted in ER in 09/2018. Pt never followed up for additional testing. CBC repeated today. Venereal d isease screening 155837082 Z11.3 pt wanting std screening for gonorrhea, chlamydia, & trichomona s but declined vaginal exam. urine sent. Counseled on safe sex, condom use and STD precaution s discussed Screening completed per patient's request. Dysuria 65598724 R30.9 UA negative and UPT negative. PT treated empiricall y for uti. Urine culture sent. Pt notified to call office if symptoms worsen and is severe go to er. Missed period 63178958 N 92.5 UPT negative serum and HCG completed. Follow up based on results. [id number] Damian Mina 14 IM [address] [facility] [place] [address] 04/11/2019 14:49:51 04/15/2019 09:25:48 Essential hypertension 81246773 I10 Adult heal th examination 632290782 Z00.00 Morbid obesity 410085317 E66.01 Seasonal a llergic rhinitis 472398316 J30.2 [id number] Yvette Juarez [employer]ER- Kyle 14 OB [address] [facility] [place] [address] 07/17/2019 14:22:49 07/18/2019 13:04:40 At increased risk of urinary tract infection 248779826 Z91.89 1. Will send meds out for UTI, continue antibiotic that hospital prescribed 2. Pt instructed to increase fluids, decrease soda, sugary beverages and caffeinate d beverages. 3. To call office if symptoms worsen or do not improve with treatment. High risk sexual behavior 515111915 Z72.51 [id number] SALMA Rollins 14 OB [address] [facility] [place] [address] 09/08/2019 13:06:05 09/09/2019 09:18:49 At increased risk of urinary tract infection 869182052 Z91.89 Pt educated on UTI management and medication . Pt notified of warning signs and when to call office. Pt said she will drop office urine sample today. Exposure t o sexually transmissible disorder 283312255 Z20.2 Pt treated related to exposure to chlamydia. Patient educated about STI and treatment. Take complete course of antibiotic , no intercours e until 7 days after course completed, use condoms at all times, good vulvar hygiene, notify partner of infection and the need to be treated. follow up in 4 week for LAVINIA or call office if issue occurs Pt said she will drop office urine sample today. Contracept ion care management 753887864 Z30.9 Discussed all options. Pt newly diagnosed with HTN. Pt aware CHC are category 3 risk. Pt decided on nexplanon. Risks/bene fits/alter natives of Nexplanon was reviewed with the patient. Patient opts for Nexplanon. Side-effec ts of Nexplanon including irregular menstrual bleeding, amenorrhea , breast tenderness , mood changes, and weight gain was discussed with the patient. Safe sex counseling was done. Pt scheduled for nexplanon placement. [id number] SALMA Rollins 14 OB [address] [facility] [address] [place] [address] 10/21/2019 13:51:34 10/22/2019 10:21:15 Missed period 02965590 N92.5 HCG ordered At [facility] risk of urinary tract infection 370116295 Z91.89 Pt educated on UTI management and medication . Pt notified of warning signs and when to call office. Pt said she will drop office urine sample today. Dysuria 73003511 R30.9 PT treated empiricall y for uti. Pt to bring in urine sample for testing. Pt notified to call office if symptoms worsen and is severe go to er. Polycystic ovary syndrome 556136867 E28.2 Pt has PCOS. Pt educated on risks of PCOS and importance of endometria l protection and lifestyle modificati ons. Pt verbalized understand ing. PT declined endometria l protection at this time. Pt verbalized understand ing. Contracept ion care management 619129090 Z30.9 Discussed all options. Pt newly diagnosed with HTN. Pt aware CHC are category 3 risk. Pt decided on switching to nexplanon. Risks/bene fits/alter natives of Nexplanon was reviewed with the patient. Patient opts for Nexplanon. Side-effec ts of Nexplanon including irregular menstrual bleeding, amenorrhea , breast tenderness , mood changes, and weight gain was discussed with the patient. Safe sex counseling was done. Pt offered appointmen t for placement of nexplanon. Pt said she would call back later. [id number] Damian Mina 14 IM [address] [facility] [place] [address] 10/28/2019 15:39:44 10/30/2019 07:40:05 Edema of lower extremity 669584529 R60.0 Keep legs elevated and soak feet in epsom salt nightly [id number] Damian Mina 14 IM [address] [facility] [place] [address] 01/14/2020 08:16:27 01/15/2020 09:45:48 Edema of lower extremity 979726150 R60.0 Keep legs elevated and soak feet in epsom salt nightly DCd HCTZ [id number] Damian Mina 14 IM [address] [facility] [place] [address] 03/02/2020 11:01:40 03/03/2020 20:01:22 Edema of lower extremity 215173108 R60.0 Keep legs elevated and soak feet in epsom salt nightly Essential hypertension 89409251 I10 Pain of ri ght ankle joint 1585804815 6627612 M25.571 Related to recent fall at work Remains off work Vitamin D deficiency 347 61703 E55.9 Genital he rpes simplex 83459631 A60.9 [id number] SALMA Rollins 14 OB [address] [facility] [place] [address] 04/27/2020 11:17:14 04/28/2020 11:17:37 Abnormal uterine bleeding 0618053750 9100 N93.9 Pt sent to ER now related to AUB and set up for follow up in office tomorrow. Pt educated on importance of ER evaluation related to Severe AUB. Pt educated on risks of not following plan of care. Pt verbalized understand ing. Dysmenorrhea 369321371 N 94.6 Pt sent to ER now related to AUB and set up for follow up in office tomorrow. Pt educated on importance of ER evaluation related to Severe AUB. Pt educated on risks of not following plan of care. Pt verbalized understand ing. [id number] SALMA Rollins 14 OB [address] [facility] [place] [address] 04/28/2020 14:54:04 04/28/2020 18:34:21 Abnormal uterine bleeding 5906006165 9100 N93.9 Pt refused pelvic exam. Pelvic US normal at recent ER visit. Discussed management options. PT decided on Provera and then wants to bridge into POP. Pt on risks and instructio ns given. Labs ordered. Pt notified to follow up in 1 week and call office if issues occur. PT given Er precaution s. Contracept ion care management 783595415 Z30.9 Discussed all options. Pt decided on POP. Slynd. Risks of hormonal control reviewed,m enstrual bleeding or no bleeding, weight changes, breast tenderness and mood changes.Al l questions answered. Pt understand s & accepts risks. Instructio ns/warning signs given. Safe sex counseling done. Patient was instructed to follow up in 3 months and as needed if issues occur. Polycystic ovary syndrome 997219044 E28.2 Pt has PCOS. Pt educated on risks of PCOS and importance of endometria l protection and lifestyle modificati ons. Pt educated on options. Pt verbalized understand ing. Pt decided on POP for contracept ion and to help offer endometria l protection . Pt verbalized understand ing. Essential hypertension 25108437 I10 Pt notified BP elevated. PT sees PCP for HTN. Pt notified to follow up with PCP within 1 week for BP check. Pt educated on importance of this. Pt educated on risks of obesity as well and notified of importance of lifestyle modificati ons. [id number] MD Kyle Christiansen 14 OB [address] [facility] [address] [place] [address] 05/05/2020 15:04:05 05/06/2020 11:18:35 Serum thyroid stimulating hormone level outside reference range 917619412 R79.89 Pt to repeat in 6 weeks. Abnormal u terine bleeding 7024348004 9100 N93.9 Pt reports resolved. Pt notified to complete provera course and then start slynd. Pt notified to call office if symptoms return. Follow up in 3 months and as needed if issues occur. [id number] SALMA Rollins 14 OB [address] [facility] [address] [place] [address] 06/10/2020 11:35:00 06/11/2020 10:51:13 Abnormal uterine bleeding 0343749995 9100 N93.9 UPT negative and CBC ordered. Prolactin normal 04/28/20 and TSH slightly elevated and pt will be due at the end of this month for repeat TSH with her PCP. Recent US in April was WNL. Discussed all management options. Pt wants to restart provera. Pt educated on medication and risks. Pt aware this medication is not a form of contracept ion. Pt educated on need for EMB. Pt educated on risks EMB. Pt verbalized understand ing. Pt scheduled for EMB. Pt advised to abstain from intercours e at this time. Pt notified to call office if symptoms worsen and if severe go to ER. [id number] ROX ROYAL NP [facility] [address] [place] [address] 09/20/2020 10:22:21 09/21/2020 14:40:31 Essential hypertension 76273603 I10 - b/p in office today 126/86 - Continue medication as prescribed and diet/exerc ise as previously discussed. - Take occasional BP? s, call if consistent ly >140/90. - Discussed reasons for sooner f/u than 2 months. - Patient verbalizes understand ing. Body mass index 40+ - severely obese 666204765 Z68.43 - d/w patient importance of implementi ng some sort of exercise regimen at least 20-30 minutes activity/d ay, - 100 gm low carb diet recommende d. [id number] ROX ROYAL NP Kyle 14 IM [address] [facility] [address] [place] [address] 04/25/2021 10:32:25 04/30/2021 17:56:13 Essential hypertension 05027614 I10 - b/p in office today 124/88 - Continue medication as prescribed and diet/exerc ise as previously discussed. - Take occasional BP? s, call if consistent ly >140/90. - Discussed reasons for sooner f/u than 2 months. - Patient verbalizes understand ing. Headache 20203427 R51.9 - Keep a headache diary to see if you can determine what are your headache/m igraine triggers- OTC migraine medication - Lay in a dark room if possible and try to relax- Drink plenty of water, get appropriat e rest, try auto relaxation , avoid triggers if known [id number] SALMA Rollins 14 OB [address] [facility] [address] [place] [address] 09/07/2021 10:09:47 09/08/2021 06:48:36 Vaginal discharge 641424915 N89.8 Educated patient on vulvar hygiene and use condoms during sex. swab obtained and sent to lab. Family [facility] nning surveillance 531393876 Z30.09 Discussed contracept ion methods. Patient not interested in any methods other than condoms at this time. Patient aware of her increased risk for unplanned . Patient advised to do 400 mcg folic acid supplement to help prevent against NTD if unplanned occurs pt educated on risks of with current medication , htn, and obesity. Pt advised not to stop medication but to discuss with pcp. Pt educated on improtance of lifestyle modificati ons. Polycystic ovary syndrome 541236989 E28.2 Pt has PCOS. Pt educated on risks of PCOS and importance of endometria l protection and lifestyle modificati ons. Pt educated on options. Pt verbalized understand ing. pt undecided on what she wants to use for endometria l protection . Pt scheduled for follow up and notified of importance of follow up. [id number] ROX ROYAL NP [facility] [address] [place] [address] 10/03/2021 15:50:28 10/05/2021 12:35:58 Infection of tooth 570676225 K04.7 - Patient reports tooth pain x 1 week, stating she has a hole in her left back top tooth. Patient states she has a dental appointmen t scheduled on 10/23 at [facility] Anxiety [id number] F41.9 - Discussed symptoms of depression /anxiety as well as the different treatment types.- Pt to started on Hydroxyzin e daily as directed.- Encouraged psychother apy in adjunct with medication therapy,.- All questions and concerns were addressed. - Pt to take meds as directed.- Pt is to monitor symptoms and RTC sooner if symptoms are worsening or not improving. Chest discomfort [id number] 09 R07.89 - Patient reports feeling heaviness and tightens in chest- dwp likely anxiety, r/o cardiac etiology Body mass index 40+ - severely obese 620775774 Z68.43 - d/w patient importance of implementi ng some sort of exercise regimen at least 20-30 minutes activity/d ay, - 100 gm low carb diet recommende d. Sleep rogelio isaac disturbance 98651770 G47.9 [id number] SALMA Rollins [place] [address] OB [address] [facility] [address] [place] [address] 10/17/2021 09:40:16 10/18/2021 08:46:15 Gynecologic examination 07399574 Z01.419 -Educated on the importance of SBE and awareness. -Discussed the importance of cervical cancer screenings -Educated osteoporos is prevention including calcium rich foods, weight bearing exercise.- Discussed the importance of exercise.- Nutrition discussed and the importance of a diet rich in fruits, vegetable, whole grains, and lean proteins.- Counseled regarding prevention of STD's and screening options, condom use and prevention .-Advised avoidance of tobacco, alcohol, and drugs.-Dis cussed sun safety and the importance of sunscreen. Polycystic ovary syndrome 821668125 E28.2 Pt has PCOS. Pt educated on risks of PCOS and importance of endometria l protection and lifestyle modificati ons. Pt educated on options. Pt verbalized understand ing. pt decided on provera for endometria l protection .Pt educated on risks and instructio ns given. Follow up in 3 months and call office if issues occur. Cyst of ovary 62496637 N 83.209 Pt has history of ovarian cyst. Follow up US ordered. pt educated on importance of follow up. Body mass index 40+ - severely obese 916138672 Z68.43 Pt educated on risks and importance of lifestyle modificati ons. Pt reports will continue to follow up with PCP. Family nimo nning surveillance [id number] Z30.09 Discussed contracept ion methods. Patient not interested in any methods other than condoms at this time. Patient aware of her increased risk for unplanned . Patient advised to do 400 mcg folic acid supplement to help prevent against NTD if unplanned occurs [id number] Haile Danielle MD [facility] [address] [place] [address] 05/15/2022 08:31:00 05/16/2022 14:53:15 Essential hypertension 98345705 I10 - b/p in office today 124/88 - Continue medication as prescribed and diet/exerc ise as previously discussed. - Take occasional BP? s, call if consistent ly >140/90. - Discussed reasons for sooner f/u than 2 months. - Patient verbalizes understand ing. Morbid obesity 563298033 E66.01 - Patient No Showed with previous bariatric provider- Dwp importance of scheduling and keeping appointmen ts. [id number] SALMA Rollins 14 OB [address] [facility] [address] [place] [address] 07/05/2022 11:27:21 07/06/2022 08:24:49 Vaginal discharge 183686809 N89.8 Educated patient on vulvar hygiene and use condoms during sex. swab obtained and sent to lab. Cyst of ovary 15153161 N 83.209 Pt has history of ovarian cyst. Pt is way overdue for follow up US. Follow up US ordered. pt educated on importance of follow up. Dysuria 20763318 R30.9 Urine culture and nuswab completed. Pt educated on UTI management and medication including side effects. Pt educated on prevention of uti's. Pt educated on warning signs and notified when to call office. Irregular periods 106728 07 N92.6 Essential hypertension 67937944 I10 Pt notified BP elevated. PT sees PCP for HTN. Pt notified to follow up with PCP within 1 week for BP check. Pt educated on importance of this. Pt educated on risks of obesity as well and notified of importance of lifestyle modificati ons. Polycystic ovary syndrome 137667546 E28.2 Pt has PCOS. Pt educated on risks of PCOS and importance of endometria l protection and lifestyle modificati ons. Pt educated on options. Pt verbalized understand ing. pt decided on restarting provera for endometria l protection .Pt educated on risks and instructio ns given. Follow up in 3-4 months and call office if issues occur. Body mass index 40+ - severely obese 149056441 Z68.43 Pt educated on risks and importance of lifestyle modificati ons. Pt reports will continue to follow up with PCP. Family nimo nning surveillance 971592003 Z30.09 Discussed contracept ion methods. Patient not interested in any methods other than condoms at this time. Patient aware of her increased risk for unplanned . Patient advised to do 400 mcg folic acid supplement to help prevent against NTD if unplanned occurs [id number] SALMA Rollins [address] OB [address] [facility] [address] [place] [address] 07/19/2022 14:25:22 07/20/2022 08:25:58 Abnormal uterine bleeding [id number] 9100 N93.9 Pt unable to urinate for UPT but UPT negative on 07/05/22. HCG ordered. Pt over due for follow up Pelvic US for cyst on ovarian. Pt said she will schedule. pt advised to continue provera for endometria l protection related to PCOS. Pt educated on medication and risks. Pt aware this medication is not a form of contracept ion and not interested in contracept ion. Pt educated on need for EMB. Pt educated on risks EMB. Pt verbalized understand ing. Pt scheduled for EMB. Pt advised to abstain from intercours e at this time. Pt notified to call office if symptoms worsen and if severe go to ER. Body mass index 40+ - severely obese 634206520 Z68.43 Pt educated on risks and importance of lifestyle modificati ons. Pt report will be seeing bariatric surgeon this week. Pt reports will continue to follow up with PCP and specialist . Polycystic ovary syndrome 487037669 E28.2 Pt has PCOS. Pt educated on risks of PCOS and importance of endometria l protection and lifestyle modificati ons. Pt educated on options. Pt verbalized understand ing. pt decided on restarting provera for endometria l protection .Pt educated on risks and instructio ns given. Follow up for EMB as scheduled Cyst of ovary 72551879 N 83.209 Pt has history of ovarian cyst. Pt is way overdue for follow up US. Follow up US ordered. pt educated on importance of follow up. [id number] SALMA Rollins [address] OB [address] [facility] [address] [place] [address] 08/01/2022 10:33:27 08/02/2022 07:52:10 Abnormal uterine bleeding 6619591106 9100 N93.9 Pt over due for follow up Pelvic US for cyst on ovarian but now has pelvic US scheduled for 08/18/22. pt advised to continue provera for endometria l protection related to PCOS. Pt educated on medication and risks. Pt aware this medication is not a form of contracept ion and not interested in contracept ion. Pt educated on need for EMB. Pt educated on risks EMB. Pt verbalized understand ing and opts for EMB. Pt advised on pelvic rest for 2 weeks. Pt educated on warning signs and notifed when to call office. Follow up based on results. Pt given ER precaution s. [id number] ROX ROYAL NP [facility] [address] [place] [address] 12/13/2022 10:55:02 12/14/2022 10:03:22 Essential hypertension 29169610 I10 - b/p in office today 152/91, repeat b/p 124/77 - Continue medication as prescribed and diet/exerc ise as previously discussed. - Take occasional BP? s, call if consistent ly >140/90. - Discussed reasons for sooner f/u than 2 months. - Patient verbalizes understand ing. Morbid obesity 959424867 E66.01 - Patient No Showed with previous bariatric provider- Dwp importance of scheduling and keeping appointmen ts. [id number] ROX ROYAL NP [facility] [address] [place] [address] 03/26/2023 10:28:08 04/04/2023 15:17:16 Essential hypertension 42770898 I10 - b/p in office today 151/92. Patient states she has not take her b/p medication in a couple days. - Continue medication as prescribed and diet/exerc ise as previously discussed. - Take occasional BP? s, call if consistent ly >140/90. - Discussed reasons for sooner f/u than 4 weeks - Patient verbalizes understand ing. Morbid obesity 192665956 E66.01 - Patient No Showed with previous bariatric provider- Dwp importance of scheduling and keeping appointmen ts. Viral uppe r respiratory tract infection 698998417 J06.9 - Drink lots of fluids, mainly water.- For sore throat, gargle warm salt water.- Get extra rest and do not over-exert yourself.- Do not mix multiple medication s with similar ingredient s (for instance Theraflu Non-drowsy and Tylenol Sinus). Doubling up on acetaminop hen and/or decongesta nts such as pseudephed rine can be dangerous. - Do not take decongesta nts if you have high blood pressure Sore throat 835108493 J0 2.9 - Use over-the-c ounter throat lozenges to soothe pain.- drink plenty of fluids, ( warm/hot teas, or soups may help decrease throat pain).- RTC with worsening symptoms [id number] ROX ROYAL NP [facility] [address] [place] [address] 04/18/2023 09:25:36 04/20/2023 15:13:54 Essential hypertension 41561183 I10 - b/p in office today 134/83 - Continue medication as prescribed and diet/exerc ise as previously discussed. - Take occasional BP? s, call if consistent ly >140/90. - Discussed reasons for sooner f/u than 4 weeks - Patient verbalizes understand ing. Morbid obesity 087045773 E66.01 advised low fat, low cholestero l, low carb diet, regular exercise and weight reduction. History of bariatric surgical procedure 960309972 Z98.84 - gastric sleeve 01/17/2023 [id number] [facility] [address] [facility] [address] [address] 06/20/2023 15:44:34 06/21/2023 09:02:24 Abnormal uterine bleeding 6689637926 9100 N93.9 Labs orderded. Pt missed EMB appointmen t with Dr. Strickland. Pt reschedule d with Dr. Strickland and educated on importance of follow up. Cyst of ovary 40881251 N 83.209 Follow up Pelvic US ordered for pt completed in 12 weeks. Pt educated on warning signs and given ER precaution s. At [facility] risk of urinary tract infection 480180908 Z91.89 UA showed blood but pt on menses. Will send for urine culture. Routine gy necologic examination done 1852460889 9101 Z01.419 -Educated on the importance of SBE and awareness. -Discussed the importance of cervical cancer screenings . pap negative 10/17/2021- Educated osteoporos is prevention including calcium rich foods, weight bearing exercise.- Discussed the importance of exercise.- Nutrition discussed and the importance of a diet rich in fruits, vegetable, whole grains, and lean proteins.- Counseled regarding prevention of STD's and screening options, condom use and prevention .-Advised avoidance of tobacco, alcohol, and drugs.-Dis cussed sun safety and the importance of sunscreen. Polycystic ovary syndrome 675206819 E28.2 Pt has PCOS. Pt educated on risks of PCOS and importance of endometria l protection and lifestyle modificati ons. Pt educated on options. Pt verbalized understand ing. pt decided on continuing provera for endometria l protection .Pt educated on risks and instructio ns given. Follow up for EMB as scheduled. pt educated on importance of follow up. Family nimo nning surveillance 591296252 Z30.09 Discussed contracept ion methods. Patient not interested in any methods other than condoms at this time. Patient aware of her increased risk for unplanned . Patient advised to do 400 mcg folic acid supplement to help prevent against NTD if unplanned occurs Body mass index 40+ - severely obese 848963937 Z68.43 Pt educated on risks and importance of lifestyle modificati ons. Pt report will be seeing bariatric surgeon this week. Pt reports will continue to follow up with PCP and specialist . [id number] Ronen Strickland MD [place] [address] [facility] [address] [address] 07/10/2023 10:33:37 07/12/2023 18:47:55 Irregular intermenstrual bleeding 31097753 N92.1 [id number] ROX ROYAL NP [facility] [address] [place] [address] 08/22/2023 10:26:30 08/31/2023 13:30:31 Morbid obesity 257205920 E66.01 advised low fat, low cholestero l, low carb diet, regular exercise and weight reduction. Vitamin D deficiency 347 83989 E55.9 Essential hypertension 55020907 I10 - b/p in office today 124/84 - Continue medication as prescribed and diet/exerc ise as previously discussed. - Take occasional BP? s, call if consistent ly >140/90. - Discussed reasons for sooner f/u than 4 weeks - Patient verbalizes understand ing. Anemia 679112137 D64.9 Viral uppe r respiratory tract infection 635687395 J06.9 - Drink lots of fluids, mainly water.- For sore throat, gargle warm salt water.- Get extra rest and do not over-exert yourself.- Do not mix multiple medication s with similar ingredient s (for instance Theraflu Non-drowsy and Tylenol Sinus). Doubling up on acetaminop hen and/or decongesta nts such as pseudephed rine can be dangerous. - Do not take decongesta nts if you have high blood pressure [id number] ROX ROYAL NP [facility] [address] [place] [address] 09/17/2023 09:29:31 09/17/2023 11:37:22 Lesion of scalp 3586944501 00 L98.9 - non tender grape sized skin lesion noted left lower scalp. Morbid obesity 197231109 E66.01 advised low fat, low cholestero l, low carb diet, regular exercise and weight reduction. [id number] SALMA Rollins [address] [facility] [address] [place] [address] 09/27/2023 11:24:12 09/28/2023 06:40:14 Dysuria 19322292 R30.9 UA negative. Urine culture sent. Pt educated on UTI prevention . Pt notified to call office if symptoms continue Polycystic ovary syndrome 952184822 E28.2 Pt educated on risks of PCOS and importance of endometria l protection and lifestyle modificati ons. Pt opts to continue monthly provera for endometria l protection Pt verbalized understand ing. pt decided on continuing provera for endometria l protection .Pt educated on risks and instructio ns given. pt educated on importance of follow up. Pt seeing PCP for obesity and prediabete s. Pt educated on importance of follow up. Cyst of ovary 83236999 N 83.209 Pt has history of ovarian cyst. Pt reminded to complete follow up US. Pt educated on importance of follow up. Pt educated on warning signs and given ER precaution s. Family nimo nning surveillance 549143796 Z30.09 Discussed preconcept ion counseling . Pt educated on fertility changes with age and pcos. Discussed importance of being up to date on immunizati ons. Pt educated on risks of obesity in and with trying to conceive as well risks of PCOS. Pt educated on importance of lifestyle modificati ons for BMI reduction. Pt seeing bariatric specialist for this. Pt wanting to reduce BMI below 30 before trying to conceive and will continue to weight loss specialist for this. Discussed contracept ion methods. Patient not interested in any methods other than condoms at this time. Patient aware of her increased risk for unplanned . Patient advised to do 400 mcg folic acid supplement to help prevent against NTD if unplanned occurs [id number] ROX ROYAL NP [facility] [address] [place] [address] 02/27/2024 12:17:27 02/28/2024 15:55:28 Viral upper respiratory tract infection 351949668 J06.9 - Counseled patient on the viral nature of the infection and explained that antibiotic s will not be effective for symptom relief.- Advised that most viral illnesses resolve within 10 days and that symptoms can be managed with over-the-c ounter medication s.- Instructed to return for further evaluation if symptoms worsen, if a fever develops, or if the illness persists beyond 10-14 days, at which point antibiotic s may be considered .- Strongly encouraged smoking cessation to support overall respirator y health and recovery. Goals Section Goal Description Status Start Date LastModified by Organization Details LastModified Time Activities of Daily Living Performs activities of daily living independently or with minimal assistance Goal not achieved 024 Radha Unger LPN Information not available 08/23/2023 18:55:25 Exercise Regularly Follows a regular exercise regimen or instructed exercise plan as per care team recommendation( s) Goal not achieved Nohemi Unger LPN Information not available 10/02/2023 18:01:15 Diet Adherence Follows prescribed or recommended diet Goal not achieved Nohemi Unger LPN Information not available 10/02/2023 18:01:15 Lab Testing Completes lab testing as per care team recommendation( s) Goal not achieved Nohemi Unger LPN Information not available 08/23/2023 18:57:14 Knowledge of Disease or Condition Demonstrates understanding of disease(s) or condition(s) Goal not achieved Nohemi Unger LPN Information not available 08/23/2023 18:57:14 Follow-up Appointment( s) Attends referral and/or follow-up appointment(s) as per care team recommendation( s) Goal not achieved Nohemi Unger LPN Information not available 11/27/2023 15:22:19 Adequate Sleep Achieves adequate, well-rested sleep with minimal disruption Goal not achieved 024 Radha Unger LPN Information not available 10/02/2023 18:00:07 Exercise Regularly Follows a regular exercise regimen or instructed exercise plan as per care team recommendation( s) Goal not achieved 024 Radha Unger LPN Information not available 10/02/2023 18:00:07 Medication Regimen Follows medication regimen as per care team recommendation( s) Goal not achieved 024 Radha Unger LPN Information not available 11/27/2023 15:22:19 Weight Loss Decreases body weight as per care team recommendation( s) Goal not achieved 024 Radha Unger LPN Information not available 10/02/2023 18:00:07 Lab Testing Completes lab testing as per care team recommendation( s) Goal not achieved 024 Radha Unger LPN Information not available 11/27/2023 15:22:19 Health Concerns Section Related Observation LastModified by Organization Detai ls LastModified Time None Recorded Concern Status LastModified by Organization Details LastModified Time Anemia Active Radha Unger LPN Not Available 15:22:19 Viral upper respiratory tract infection Active Radha Unger LPN Not Available 03/06/2024 1 7:54:28 Morbid obesity Active Radha Unger LPN Not Availabl e 10/02/2023 18:01:15 Lesion of scalp Inactive Radha Unger LPN Not Availab le 11/27/2023 15:20:19 Advance Directives Directive N: Payers Encounter Date Sequence Insurance Name Policy Number Policy Navarrete Covered Member ID Navarrete Member ID Guarantor Name 07/10/2023 1 [facility] ON OR AFTER 12/02/20 (MEDICAID REPLACEMENT - HMO) Summer D Cody [id number] Summer Page Cody 08/22/2023 1 [facility] ON OR AFTER 12/02/20 (MEDICAID REPLACEMENT - HMO) Summer D Cody [id number] Summer Page Cody 09/17/2023 1 [facility] ON OR AFTER 12/02/20 (MEDICAID REPLACEMENT - HMO) Summer D Cody [id number] Summer Page Ross 09/27/2023 1 [facility] ON OR AFTER 12/02/20 (MEDICAID REPLACEMENT - HMO) Summer Abhay Ross [id number] Maeve Ross 02/27/2024 1 [facility] ON OR AFTER 12/02/20 (MEDICAID REPLACEMENT - HMO) Maeve Ross [id number] Maeve Ross Notes Date Note Type Note Provider Name and Address Organization Details Recorded Time 07/10/2023 text/html Patient presents as a referral from the [facility]. She had an EMB performed secondary to abnormal uterine bleeding however only scant tissue was collected. The patient denies any further heavy vaginal bleeding. Ronen Strickland MD Attn: Accounting, [facility], [place], [address], [facility] 07/10/2023 12:29:27 08/22/2023 text/html Hypertension F/UReported bypatient.Associated Symptoms:no dizziness; no lightheadedness; no chest pain; no shortness of breath; no palpitations; no edema Medications:taking medications as directed; no side effects from medicationUpper Respiratory SymptomsReported bypatient.Location:[facility] Quality:productive cough;colored phlegm;congested Severity:moderate Context:no sick contacts; no foreign travel; non-smoker 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 Ross presented in office today for f/u appointment. Patient complaining of cough, congestion, and left ear pain for 1 week. Patient states home COVID test was negative. ROX ROYAL NP Attn: Accounting, [facility], [place], [address], [facility] 08/22/2023 11:56:57 09/17/2023 text/html Rash/Skin LesionReported bypatient.Location:[facility] Quality:not painful; not bleeding;itchy;increas ing in size Duration:has noted for >3 months Ms. Ross came into the office today complaining of skin growth on the left lower scalp. The patient reports that she has had a lesion on her scalp since she was a child, but it was pea-sized and has gradually grown larger. ROX ROYAL NP Attn: Accounting,[address] [facility], [place], [address], [facility] 09/17/2023 11:29:09 09/27/2023 text/html Pt is here relat ed to possible UTI. Pt denies any new partners in the last few years. Pt reports has burning with urination at few days ago but it has resolved. Pt also wanting to trying to conceive. Pt considering of trying to conceive in the next few years. 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 Ross presents with a 6-day history of chills, cold sweats, cough, body aches, and runny nose. Symptoms began gradually and have persisted without significant improvement. ROX ROYAL NP Attn: Accounting,[address] [facility], [place], [address], [facility] 02/27/2024 12:49:51 OBGyn Episode No OBEpisode recorded.
--- OUTSIDE RECORDS SUMMARY | 2024-06-13 23:55 | XMS_ITS | Encounter Summary ---
Author Organization [facility] Care Team Providers Care Customs Director Name Role Phone Provider, None Primary Care Provider Unavailabl e Encounter Details Date Type Department Care Team (Latest Contact Info) Description 12/16/2019 Travel Social History Tobacco Use Types Packs/Day [...] or suspected to have Coronavirus / COVID-19? Yes 12/16/2019 5:35 PM CDT documented as of this encounter Plan of Treatment Upcoming Encounters Date Type Department Care Team (Late st Contact Info) Description 08/07/2024 10:00 AM CASH MANAGEMENT ASSOCIATE Office Visit [facility] - Pulmonology & Sleep Medicine [facility] [address] [place] [id number] Philippe Granados MD [address] [place] [address] documented as of this encounter Visit Diagnoses Not on filedocumented in this encounter Additional Health Concerns Infection Onset Date Last Indicated Resolved Time COVID - 19 12/16/2019 12/18/201912/27/2019 1:06 PM CDT documented as of this encounter Care Teams Customs Director Relationship Specialty Start Date End Date Provider, None [place] PCP - General 07/21/16 04/26/20 documented as of this encounter
--- OUTSIDE RECORDS SUMMARY | 2024-06-13 23:55 | XMS_ITS | Encounter Summary ---
Author Organization [facility] Address [address] [place] [address] Phone Care Team Providers Care Deal Architect Name Role Phone Iwona, Rox Horton APRN, CNP Primary Care Provider Reason for Visit * Consult, Test & Initiate Treatment (Routine) - Closed Specialty Diagnoses / Procedures Referred By Guillaume fabian Referred To Contact Sleep Center Diagnoses LEDA (obstructive sleep apnea) Philippe Granados MD [address] [place] [address] Phone: tel: fax: [facility] [address] [place] [address] Phone: tel: fax: Referral ID Status Reason Start Date Expiration Date Visits Re quested Visits Authorized [id number] Closed 10/20/2021 1 1 Encounter Details Date Type Department Care Team (Late st Contact Info) Description 11/02/2021 8:00 PM CDT Sleep Lab [facility] [address] [place] [address] Philippe Granados MD [address] [place] [address] LEDA (obstructive sleep apnea); Obstructive sleep apnea Discharge Disposition: Discharged to home or Selfcare [...] PM CDT documented as of this encounter Procedure Notes * Philippe Granados MD - 11/02/2021 8:00 PM CDT Evaluation Report Maeve Ross 11/02/2021 Ms. Maeve Ross, a 21 year old female (2000), was seen at the [facility] for a sleep apnea evaluation. She has a history significant for snoring, nocturia, hypertension and obesity.[place] Scale is 1. Her current height is 55 inches and weight is 346 lbs, resulting in a BMI of 80.1. Her neck size is 19.5 inches. She is referred by Dr. Philippe Granados. SUMMARY: ??? Severe obstructive sleep apnea (G47.33). ??? Overall AHI=37.5/hr, Overall SDB index=38.9/hr. ??? Oximetry showed average sleep saturation of 92%, lowest SaO2 was 82% and her saturations were above 90% for 74.3% of the night. ??? Moderately increased Stage N1 sleep and lowered sleep efficiency. ??? Lateral anterior tibialis recording showed moderate periodic limb movements with 3.0 per hour resulting in arousal. ??? Sleep and respiration normalized at a CPAP setting of 6.0 cm of H2O. ??? Overall AHI at optimal setting=1.0/hr. recommendations: ??? Trial with Nasal CPAP 6.0 cm of H2O with heated humidifier and nasal Resmed Airfit N20 small mask. ??? She should follow up in 31-90 days to assess the efficacy and compliance with nasal CPAP. ??? Should the patient have difficulty tolerating PAP, consider surgical evaluation of the upper airway or a dental appliance should be considered. ??? Recommend evaluation for underlying causes of RLS and PLMD, including serum ferritin and iron. Consider trial with pharmacological agents for treatment for PLMD if hypersomnia persists despite good treatment of LEDA with PAP therapy symptoms warrant. ??? Obtain and maintain ideal body weight. ??? Avoid alcohol and other MEDART OPERATOR depressants. POLYSOMNOGRAPHY: Nocturnal polysomnography was performed 11/02/2021 (10:49 p.m. to 6:00 a.m.), using standard recording parameters which include Frontal, Central and Occipital EEG,, left and right EOG, submental EMG, EKG, left and right anterior tibialis EMG, abdominal and thoracic respiratory effort, nasal/oral airflow, and oximetry. Data were interpreted following standard AASM criteria utilizing the 30% reduction in airflow resulting in at least a 4% desaturation definition of hypopnea (AASM Rule 1B). She estimated obtaining 8 hours of sleep the night before testing. BASELINE SLEEP DATA: During the baseline portion of the recording, Ms. Ross slept 126.5 minutes out of 195.5 minutes fora sleep efficiency (total sleep time/total recording time) of 64.7%. Sleep latency was 20.5 minutes. No REM was noted during baseline. Sleep architecture revealed moderately increased Stage N1 sleep 26.9% of total sleep time. Stage N2 sleep was 57.7%, Stage N3 sleep was 15.4% and Stage R sleep was 0%. There were 5.2 spontaneous arousals per hour of sleep. There were 34.5 minutes of wake after sleep onset reported. BASELINE RESPIRATORY MONITORING: Respiratory monitoring revealed 1 obstructive apneas, 0 mixed apneas, 0 central apnea and 78 partial upper airway obstructions (obstructive hypopneas) resulting in an overall apnea and hypopnea index(AHI) of 37.5 per hour of sleep. Her overall supine AHI was 73.7 events per hour of supine sleep (57 minutes total supine sleep) and lateral AHI was 7.8 events per hour of lateral sleep (69.5 minutestotal lateral sleep). No REM sleep was noted during baseline There were an additional 3 respiratoryevent related arousals (RERAs=hypopneas without a 4% oxygen desaturation) which resulted in an overall sleep disordered breathing (SDB) index of 38.9/hr. Baseline SaO2 was 92% and the lowest SaO2 was82%. Technicians noted moderate to severe snores during sleep. LIMB MOVEMENTS AND ECG: Anterior tibialis EMG monitoring revealed 84 periodic leg movements in sleep (16.8 per hour),15 of which were associated with unambiguous EEG arousal (3.0 per hour). ECG showed Normal Sinus Rhythm with event associated sinus arrhythmia and tachycardia noted. Her average heart rate during wake was 97 beats per minutes and during sleep was 91 beats per minute. TITRATION OF NASAL CPAP: Because of sleep apnea (327.23), the baseline recording was stopped and treatment testing was started. Nasal CPAP was administered with pressures ranging from 4.0 to 6.0 cm. The optimal pressure for resolution of obstructive breathing and snoring was determined to be 6.0 cm. At this pressure the patient slept 123.0 minutes out of 128.0 minutes for a sleep efficiency of 96.1%. Stage 1 sleep was reduced to 2.8% of total sleep time. The overall AHI at the optimal setting was 1.0 events per hour ofsleep at this pressure. The lowest SaO2 at this pressure was 90%. SaO2 during REM sleep was usuallybetween 90-96%. PATIENT ASSESSMENT: On the morning post sleep questionnaire, the patient estimated a sleep latency of 60 minutes and a total sleep time of 6 hours. She noted that the sleep in the laboratory was worse than usual. Philippe Granados MD Associated attestation - Alok Randolph MD - 11/15/2021 4:15 PM CDT I have read the Sleep Report for this patient and attest that I am in agreement with it. documented in this encounter Plan of Treatment Upcoming Encounters Date Type Department Care Team (Late st Contact Info) Description 08/07/2024 10:00 AM PROVIDER NETWORK MGR Office Visit [facility] - Pulmonology & Sleep Medicine - [place] [address] [place] [address] Philippe Granados MD [address] [place] [address] documented as of this encounter Procedures Procedure Name Priority Date/Time Associated Diagnosis Comments SPLIT NIGHT POLYSOMNOGRAPHY - INCLUDES DIAGNOSTIC AND CPAP TITRATION Routine 11/03/2021 Obstructive sleep apnea documented in this encounter Results * SPLIT NIGHT PSG (11/03/2021) us Philippe Granados MD SLEEP CENTER ORDERABLES Final Re sult documented in this encounter Visit Diagnoses Diagnosis LEDA (obstructive sleep apnea) Obstructive sleep apnea (adult) (pediatric) Obstructive sleep apnea Obstructive sleep apnea (adult) (pediatric) documented in this encounter Care Teams Deal Architect Relationship Specialty Start Date End Date Rox Bustillo APRN, DIE REPAIRER STAMPING [address] [place] [address] PCP - General Advanced Practice Nurse 10/05/21 documented as of this encounter
--- OUTSIDE RECORDS SUMMARY | 2024-06-13 23:55 | XMS_ITS | Encounter Summary ---
Author Organization [facility] Address [address] [place] [address] Phone Care Team Providers Care Experience Design Director Name Role Phone Provider, None Primary Care Provider Unavailabl e Reason for Visit * Reason Comments Cough Encounter Details Date Type Department Care Team ([facility] Contact Info) Description 12/16/2019 5:42 PM CDT - 12/16/2019 8:11 PM CDT Emergency [facility] Emergency [address] [place] [id number] Liya Hartman, PAC [address] [place] [address] Bronchitis Discharge Disposition: Discharged to home or Selfcare [...] Sign Reading Time Taken Comments Blood Pressure 126/110 12/16/2019 6:30 PM CDT Pulse 98 12/16/2019 7:30 PM CDT Temperature 36.9 ??C (98.5 ??F) 12/16/2019 5:36 PM CD T Respiratory Rate 20 12/16/2019 5:36 PM CDT Oxygen Saturation 100% 12/16/2019 7:30 PM CDT Inhaled Oxygen Concentration - - Weight 136.1 kg (300 lb) 12/16/2019 5:36 PM CDT Height 165.1 cm (5' 5 ) 12/16/2019 5:36 PM CDT Body Mass Index 49.92 12/16/2019 5:36 PM CDT documented in this encounter Discharge Instructions * Discharge Instructions* Liya Hartman PAC - 12/16/2019 8:06 PM CDT Please followup with your primary care provider. Return if you have any worsening symptoms. Please quarantine yourself until you get your COVID test results back. documented in this encounter Medications at Time [...] as of this encounter ED Notes * IhmaAnnita lynch RN - 12/16/2019 8:10 PM CDT Patient discharged. Discharge instructions and patient educational material reviewed with patient; questions and concerns addressed; patient verbalizes understanding, using teach back. Patient was given 2 prescriptions. Patient discharged per ambulatory mode with self as responsible libertarian. * Liya Hartman PAC - 12/16/2019 6:33 PM CDT Chief Complaint Patient presents with ??? Cough HPI Summer D Cody is a 19 y.o. female who presents due to a cough, low grade fever, short of breath, headache, diarrhea, sore throat, headache which started yesterday. She states that her cough is productive of greenish phlegm. She states that her diarrhea started yesterday and she has had 2-3 episodes of watery diarrhea today. She reports being exposed to her cousin three days ago with COVID. She denies any chronic medical problems. Her LMP was 12/16/19. No current facility-administered medications for this encounter. [...] file Gets together: Not on file Attends judaism service: Not on file Active member of [...] Narrative ??? Not on file BP (!) 140/100 Pulse (!) 129 Temp 98.5 ??F (36.9 ??C) (Temporal) Resp 20 Ht 5' 5 (1.651 m) Wt 300 lb (136.1 kg) LMP 12/16/2019 SpO2 96% BMI 49.92 kg/m?? Review of Systems Constitutional: Positive for fever. Negative for chills. HENT: Positive for sore throat. Negative for congestion and ear pain. Eyes: Negative for pain and discharge. Respiratory: Positive for shortness of breath. Negative for cough and chest tightness. Cardiovascular: Negative for chest pain, palpitations and leg swelling. Gastrointestinal: Positive for diarrhea. Negative for abdominal distention, abdominal pain, blood in stool, constipation, nausea and vomiting. Genitourinary: Negative for dysuria, frequency and vaginal discharge. Musculoskeletal: Negative for arthralgias and back pain. Skin: Negative for color change and rash. Neurological: Positive for headaches. Negative for dizziness, weakness and light-headedness. Psychiatric/Behavioral: Negative for suicidal ideas. All other systems reviewed and are negative. Physical Exam Vitals signs and nursing note reviewed. Constitutional: General: She is not in acute distress. Appearance: She is well-developed. She is not diaphoretic. HENT: Head: Normocephalic and atraumatic. Right Ear: External ear normal. Left Ear: Tympanic membrane, ear canal and external ear normal. Ears: Comments: R TM erythema with serous fluid Eyes: Conjunctiva/sclera: Conjunctivae normal. Pupils: Pupils are [...] Palpations: Abdomen is soft. Tenderness: There is no abdominal tenderness. There is no guarding or rebound. Musculoskeletal: Normal range of motion. Skin: General: Skin is warm and dry. Neurological: Mental Status: She is alert and oriented to person, place, and time. Cranial Nerves: No cranial nerve deficit. Procedures Imaging Results XR CHEST SINGLE VIEW PORTABLE (Final result) Result time 12/16/19 20:06:03 Procedure changed from XR CHEST 2 VIEWS Final result by José Miguel Moran MD (12/16/19 20:06:03) Impression: IMPRESSION: No acute cardiopulmonary disease. Narrative: EXAM DESCRIPTION: XR CHEST SINGLE VIEW PORTABLE REASON FOR STUDY: Shortness of breath with headache and diarrhea for 3 days TECHNIQUE: Frontal radiographic view of the chest acquired. COMPARISON: None FINDINGS: LUNGS/PLEURA: No focal consolidation or pneumothorax. No pleural effusion. HEART/MEDIASTINUM: Heart size is normal. Normal mediastinal and hilar contours. HARDWARE/LINES/TUBES: None. BONES: No acute findings. OTHER: No other significant finding. THIS IS AN ELECTRONICALLY VERIFIED FINAL REPORT 12/16/2019 8:03 PM - Electronically signed by José Miguel Moran M.D. ANTWON: ANTWON Report ID: [id number] Reading Location: [place] [address] XR CHEST 2 VIEWS (Canceled) [facility] Coding Clinical Impression 1. Right acute serous otitis media 2. Bronchitis Patient was started on a zithromax ishan for her acute otitis media. She understands to quarantine herself until her test results are back. Encouraged f/u with her pmd if her symptoms are not improvingin the next three days and to return if her sx change or worsen. Cosigned by Maxim España at 12/17/2019 5:02 AM CDT * Cesar Villarreal, RN - 12/16/2019 5:40 PM CDT Patient to ED with c/o cough, low grade fever, SOB, sore throat, headache, and diarrhea for 3 days.Patient states she was at a birthday libertarian 3 days ago and was around her cousin who tested positivefor Covid. Patient currently afebrile, AOx4. documented in this encounter Plan of Treatment Upcoming Encounters Date Type Department Care Team (Late st Contact Info) Description 08/07/2024 10:00 AM WASHER ENGINEER HELPER Office Visit [facility] - Pulmonology & [facility] Medicine [facility] [address] [place] [address] Philippe Granados MD [address] [place] [address] documented as of this encounter Procedures Procedure Name Priority Date/Time Associated Diagnosis Comments XR CHEST SINGLE VIEW PORTABLE STAT 12/16/2019 7:51 PM CDT COVID19 BY LUNG GUN OPERATOR/PCR (NON INTERFACED LAB) STAT 12/16/2019 7:32 PM CDT SARS-COV-2 BY MOLECULAR STAT 12/16/2019 7:32 PM CDT POCT URINE HCG () STAT 12/16/2019 7:14 PM CDT CBC WITH AUTO DIFFERENTIAL STAT 12/16/2019 6:45 PM CDT CMP (COMPREHENSIVE METABOLIC PANEL) STAT 12/16/2019 6:45 PM CDT COMPLETE BLOOD COUNT (CBC) WITH DIFF STAT 12/16/2019 6:45 PM CDT POCT GROUP A STREP SCREEN RAPID STAT 12/16/2019 6:35 PM CDT CULTURE, GRP A STREPTOCOCCUS, CULT ONLY STAT 12/16/2019 6:35 PM CDT documented in this encounter Results * XR CHEST SINGLE VIEW PORTABLE (12/16/2019 7:51 PM CDT) Anatomical Region Laterality Modality Chest N/A Digital Radiogra phy 12/16/2019 8:03 PM CDT Impressions 12/16/2019 8:06 PM CDT IMPRESSION: ?? No acute cardiopulmonary disease. Narrative 12/16/2019 8:06 PM CDT EXAM DESCRIPTION: ?? XR CHEST SINGLE VIEW PORTABLE REASON FOR STUDY: ?? Shortness of breath with headache and diarrhea for 3 days TECHNIQUE: ?? Frontal radiographic view of the chest acquired. COMPARISON: ?? None FINDINGS: ??LUNGS/PLEURA: ??No focal consolidation or pneumothorax. No pleural effusion. HEART/MEDIASTINUM: ??Heart size is normal. Normal mediastinal and hilar contours. HARDWARE/LINES/TUBES: ??None. BONES: ??No acute findings. OTHER: ??No other significant finding. THIS IS AN ELECTRONICALLY VERIFIED FINAL REPORT 12/16/2019 8:03 PM - Electronically signed by José Miguel Moran M.D. ANTWON: ANTWON D: ??12/16/2019 8:03 PM T: ??12/16/2019 8:03 PM Report ID: [id number] Reading Location: ??[id number] Procedure Note José Miguel Moran MD - 12/16/2019 EXAM DESCRIPTION: XR CHEST SINGLE VIEW PORTABLE REASON FOR STUDY: Shortness of breath with headache and diarrhea for 3 days TECHNIQUE: Frontal radiographic view of the chest acquired. COMPARISON: None FINDINGS: LUNGS/PLEURA: No focal consolidation or pneumothorax. No pleural effusion. HEART/MEDIASTINUM: Heart size is normal. Normal mediastinal and hilar contours. HARDWARE/LINES/TUBES: None. BONES: No acute findings. OTHER: No other significant finding. THIS IS AN ELECTRONICALLY VERIFIED FINAL REPORT 12/16/2019 8:03 PM - Electronically signed by José Miguel Moran M.D. ANTWON: ANTWON Report ID: [id number] Reading Location: [place] [address] IMPRESSION: No acute cardiopulmonary disease. Liya Lynn Page PAC IMG DIAGNOSTIC ORDERABLES Fi nal Result * COVID-19 by commercial title examiner-PCR NON INTERFACED LAB (12/16/2019 7:32 PM CDT) COVID-19 commercial title examiner-PCR (NON INTERFACED) NOT DETECTED - See Scanned Report Not Detected 12/18/2019 10:27 AM CDT [facility] Swab NASOPHARYNGEAL STRUCTURE / Unknown Non-Phlebotomy Collection / Unknown 12/16/2019 7:32 PM CDT 12/16/2019 7:32 PM CDT Liya Hartman PAC LAB SEND OUTS Final Result [facility] [address] [place] [address] * SARS-COV-2 BY PCR (12/16/2019 7:32 PM CDT) SARSCOV2 Sent to Non Interfaced Lab. See COVID-19 by commercial title examiner-PCR, Non Interfaced Lab for results. (Referenc e Range for this test is Not Detected) 12/18/2019 10:27 AM CDT NON-INTERFACED REFERENCE LABORATORIES Swab NASOPHARYNGEAL STRUCTURE / Unknown Non-Phlebotomy Collection / Unknown 12/16/2019 7:32 PM CDT 12/16/2019 7:32 PM CDT Liya Lynn Page PAC MICROBIOLOGY - GENERAL ORDER SHAE Final Result NON-INTERFACED REFERENCE LABORATORIES * POCT Urine HCG () (12/16/2019 7:14 PM CDT) Pathologist [facility] POC URINE Negative POC URINE CONTROL [employer] Urine 12/16/2019 7:14 PM CDT Liya Lynn Page PAC POINT OF CARE TESTING (MANUA L) Final Result * (ABNORMAL) CBC with Auto Differential (12/16/2019 6:45 PM CDT) [facility] WBC 9.88 4.00 - 12.00 10(3)/mcL 12/16/2019 6:58 PM CDT [facility] RBC 5.22 3.80 - 5.30 10(6)/mcL 12/16/2019 6:58 PM CDT [facility] HEMOGLOBIN (HGB) 12.9 12.0 - 15.8 g/dL 12/16/2019 6:58 PM CDT [facility] HEMATOCRIT (HCT) 42.4 36.0 - 47.0 % 12/16/2019 6:58 PM CDT [facility] MCV 81.2(L) 82.0 - 96.0 fL 12/16/2019 6:58 PM CDT [facility] MCH 24.7(L) 26.0 - 34.0 pg 12/16/2019 6:58 PM CDT [facility] MCHC 30.4(L) 31.0 - 36.0 g/dL 12/16/2019 6:58 PM CDT [facility] PLATELET COUNT 250 140 - 440 10(3)/mcL 12/16/2019 6:58 PM CDT [facility] RDW 15.2 11.8 - 15.5 % 12/16/2019 6:58 PM CDT [facility] MPV 12.2 9.7 - 12.4 fL 12/16/2019 6:58 PM CDT [facility] NEUTROPHILS 79.3(H) 47.0 - 73.0 % 12/16/2019 6:58 PM CDT [facility] LYMPHOCYTES 14.1(L) 18.0 - 42.0 % 12/16/2019 6:58 PM CDT [facility] MONOCYTES 5.4 4.0 - 12.0 % 12/16/2019 6:58 PM CDT [facility] EOSINOPHILS 0.9 0.0 - 5.0 % 12/16/2019 6:58 PM CDT [facility] BASOPHILS 0.3 0.0 - 1.0 % 12/16/2019 6:58 PM CDT [facility] ABSOLUTE NEUTROPHILS 7.84(H) 1.60 - 7.70 10(3)/[facility] 12/16/2019 6:58 PM CDT [facility] ABSOLUTE LYMPHOCYTES 1.39 1.30 - 3.20 10(3)/[facility] 12/16/2019 6:58 PM CDT [facility] ABSOLUTE MONOCYTES 0.53 0.20 - 1.00 10(3)/[facility] 12/16/2019 6:58 PM CDT [facility] ABSOLUTE EOSINOPHIL 0.09 0.00 - 0.40 10(3)/[facility] 12/16/2019 6:58 PM CDT [facility] ABSOLUTE BASOPHILS 0.03 0.00 - 0.10 10(3)/[facility] 12/16/2019 6:58 PM CDT [facility] NRBC PER 100 WBC 0 12/16/19 20 6:58 PM CDT [facility] Blood Venipuncture / Unknown 12/16/2019 6:45 PM CDT 12/16/2019 6:56 PM CDT Liya Lynn Page PAC HEMATOLOGY ORDERABLES Final Result [facility] [address] [place] [address] * (ABNORMAL) CMP (Comprehensive Metabolic Panel) (12/16/2019 6:45 PM CDT) SODIUM 135(L) 136 - 144 mmol/L 12/16/2019 7:22 PM CDT [facility] POTASSIUM 4.1 3.5 - 5.1 mmol/L 12/16/2019 7:22 PM CDT [facility] CHLORIDE 99(L) 100 - 110 mmol/L 12/16/2019 7:22 PM CDT [facility] CO2, VENOUS 25 22 - 32 mmol/L 12/16/2019 7:22 PM CDT [facility] ANION GAP 15.1 8.0 - 20.0 mmol/L 12/16/2019 7:22 PM CDT [facility] GLUCOSE 110(H) 70 - 99 mg/dL 12/16/2019 7:22 PM CDT [facility] BUN 11 6 - 20 mg/dL 12/16/2019 7:22 PM CDT [facility] CREATININE, BLOOD 0.64 0.60 - 1.10 mg/dL 12/16/2019 7:22 PM T [facility] BUN/CREATININE RATIO 17 12 - 20 ratio 12/16/2019 7:22 PM CDT [facility] TOTAL PROTEIN 7.8 6.0 - 8.3 g/dL 12/16/2019 7:22 PM T [facility] ALBUMIN 3.8 3.5 - 5.2 g/dL 12/16/2019 7:22 PM CDT [facility] Comment: The colormetric methods used for the determination of Albumin may lead to falsely elevated test results in patients suffering from renal failure or insufficiency due to interference with other proteins. A/G RATIO 1.0 1.0 - 2.0 12/16/2019 7:22 PM CDT [facility] CALCIUM 9.7 8.9 - 10.3 mg/dL 12/16/2019 7:22 PM CDT [facility] T BILI <=0.2 <=1.2 mg/dL 12/16/2019 7:22 PM CDT [facility] SGOT (AST) 16 <=32 U/L 12/16/2019 7:22 PM CDT [facility] SGPT (ALT) 18 <=33 U/L 12/16/2019 7:22 PM CDT [facility] ALKALINE PHOSPHATASE 106(H) 35 - 105 U/L 12/16/2019 7:22 PM CDT [facility] GFR, EST. NONAFRICAN >60 >=60 12/16/2019 7:22 PM CDT [facility] GFR, EST. >60 >=60 020 7:22 PM CDT [facility] Comment: Creatinine Clearance is the preferred criteria for selecting drug dose adjustments in renally impaired patients. ??The GFR is provided as additional pertinent clinical information. GFR is reported in mL/min/1.73 sq m. Blood Venipuncture / Unknown 12/16/2019 6:45 PM CDT 12/16/2019 6:56 PM CDT Liya Hartman PAC CHEMISTRY ORDERABLES Final R esult Performing Organization Address City/[facility]/ZIP Co de Phone Number [facility] [address] [place] [address] * Culture, Grp A Streptococcus, Cult Only (12/16/2019 6:35 PM CDT) CULTURE RESULTS NO STREP PYOGENES (GROUP A BETA HEMOLYTIC STREP) ISOLATED AFTER 2 DAYS 12/19/2019 11:14 AM CDT [facility] Culture STRUCTURE OF ANTERIOR PORTION OF NECK / Unknown Non-Phlebotomy Collection / Unknown 12/16/2019 6:35 PM CDT 12/16/2019 7:28 PM CDT Liya Lynn Page PAC MICROBIOLOGY - GENERAL ORDER SHAE Final Result Performing Organization Address City/[facility]/ZIP Co de Phone Number [facility] [address] [place] [address], [place] * POCT Group A Strep Screen Rapid (12/16/2019 6:35 PM CDT) POC STREP SCRN Presumptive negative POC STREP SCREEN CONTROL [employer] 12/16/2019 6:35 PM CDT Liya [place] Page PAC POINT OF CARE TESTING (FELIX Harp) Final Result documented in this encounter Visit Diagnoses Diagnosis Right acute serous otitis media- Primary Acute serous otitis media Bronchitis Bronchitis, not specified as acute or chronic documented in this encounter Additional Health Concerns Infection Onset Date Last Indicated Resolved Time COVID - 19 12/16/2019 12/18/2019 12/27/2019 1:06 PM CDT documented as of this encounter Care Teams Experience Design Director Relationship Specialty Start Date End Date Provider, None [place] PCP - General 07/21/16 04/26/20 documented as of this encounter
--- OUTSIDE RECORDS SUMMARY | 2024-06-13 23:55 | XMS_ITS | Encounter Summary ---
Author Organization [facility] Address [address] [place] [address] Care Team Providers Care Case Manager Specialist Name Role Phone Glenny Lewis MD Primary Care Provider [phone] Encounter Details Date Type Department Care Team (Late st Contact Info) Description 12/17/2019 Lab Requisition [facility] [address] [place] [address] Alexx Arceo MD Social History Tobacco Use Types Packs/Day Years Used Date Smoking Tobacco: Never Assessed Sex and Gender Information Value Date Recorded Sex Assigned at Not on file Gender Identity Not on file Sexual Orientation Not on file documented as of this encounter Plan of Treatment Not on file documented as of this encounter Procedures Procedure Name Priority Date/Time Associated Diagnosis Comments SARS-COV-2 (COVID-19) IN HOUSE Routine 12/16/2019 6:35 PM CDT documented in this encounter Results * SARS-COV-2 (COVID-19) IN HOUSE (12/16/2019 6:35 PM CDT) COVID-19 PCR Not detected Not detected, Invalid 12/17/2019 11:01 PM CDT [facility] Microbiology SPECIMEN FROM NASOPHARYNGEAL STRUCTURE / Unknown Collection / Unknown 12/16/2019 6:35 PM CDT 12/17/2019 10:11 AM CDT Narrative [facility] - 12/17/2019 11:01 PM CDT This nucleic acid amplification assay performance was validated by [facility]. This test has been authorized [...] Alexx Arceo MD LAB - MICROBIOLOGY ORDERABLES [facility] [address] [place] [address], [facility] [phone] documented in this encounter Visit Diagnoses Not on filedocumented in this encounter Additional Health Concerns Infection Onset Date Last Indicated Resolved Time COVID-19 Under Investigation 12/17/2019 12/16/2019 12/17/2019 11:01 PM CDT documented as of this encounter Care Teams Case Manager Specialist Relationship Specialty Start Date End Date Glenny Lewis MD PCP - General 05/23/18 documented as of this encounter
--- OUTSIDE RECORDS SUMMARY | 2024-06-13 23:55 | XMS_ITS | Encounter Summary ---
Author Organization [facility] Address [address] [place] [address] Phone Care Team Providers Care Credit Reference Clerk Name Role Phone Iwona, Rox Horton APRN, CNP Primary Care Provider Philippe Granados MD Unavailable Reason for Visit * Reason Comments Sleep Apnea Encounter Details Date Type Department Care Team (Late st Contact Info) Description 08/07/2023 11:00 AM LOAN INTERVIEWER Office Visit [facility] - Pulmonology & Sleep Medicine [facility] [address] [place] [phone] Philippe Granados MD [address] [place] [phone] LEDA (obstructive sleep apnea) (Primary Dx); Morbid obesity (HCC); Restless legs syndrome (RLS); Essential (primary) hypertension Discharge Disposition: Discharged to home or Selfcare [...] Sign Reading Time Taken Comments Blood Pressure 110/60 08/07/2023 10:18 AM LOAN INTERVIEWER Pulse 91 08/07/2023 10:18 AM LOAN INTERVIEWER Temperature 36.4 ??C (97.5 ??F) 08/07/2023 1 0:18 AM LOAN INTERVIEWER Respiratory Rate 14 08/07/2023 10:1 8 AM LOAN INTERVIEWER Oxygen Saturation 97% 08/07/2023 10: 18 AM LOAN INTERVIEWER Inhaled Oxygen Concentration - - Weight 122.7 kg (270 lb 9.6 oz) 024 10:18 AM LOAN INTERVIEWER Height 165.1 cm (5' 5 ) 08/07/2023 10:1 8 AM LOAN INTERVIEWER Body Mass Index 45.03 08/07/2023 10:18 AM LOAN INTERVIEWER documented in this encounter Progress Notes * Philippe Granados MD - 08/07/2023 11:00 AM CST Images from the original note were not included. Progress Note Subjective: HPI: Maeve Ross is a 23 y.o. 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 Has lost 160 Lbs since than Problem List: Patient Active Problem List Diagnosis Date Noted Restless legs syndrome (RLS) 03/30/2022 LEDA (obstructive sleep apnea) 10/20/2021 Morbid obesity (HCC) 10/20/2021 Essential (primary) hypertension 10/20/2021 Past Medical History: has a past medical history of Hypertension. Past Surgical History: has a past surgical history that includes Tympanostomy Tube Placement; Ovarian Cyst Removal; Cholecystectomy; and LAP GASTRIC RESECTION. Family History: family history is not on file. Social History: reports that she has never smoked. She has never used smokeless tobacco. She reports current alcohol use. She reports that she does not use drugs. Allergies: Allergies Description Type Start Date End Date Comment Verified Aquaculturist Penicillins Allergy -Jul-2016 Reactions: Swelling Gio Ruiz, feeder/folder List: Current Outpatient Medications Medication Sig Dispense Refill metoprolol Succinate (TOPROL-XL) 25 MG TABLET SR 24 HR Take 25 mg by mouth daily. Phentermine HCl 37.5 MG Tablet Take 37.5 mg by mouth every morning (before breakfast). triamterene-hydrochlorothiazide (MAXZIDE) 37.5-25 MG Tablet Take 1 Tablet by mouth daily. No current facility-administered medications for this visit. Review of Systems Constitutional: negative Eyes: negative Ears, nose, mouth, throat, and face: negative Respiratory: negative Cardiovascular: negative Gastrointestinal: negative Genitourinary:negative Integument/breast: negative Hematologic/lymphatic: negative Musculoskeletal:negative Neurological: negative Behvioral/Psych: negative Endocrine: negative Allergic/Immunologic: Allergies Allergen Reactions Penicillins Swelling Objective: Vitals: Blood pressure 110/60, pulse 91, temperature 97.5 ??F (36.4 ??C), resp. rate 14, height 5' 5 (1.651 m), weight 270 lb 9.6 oz (122.7 kg), SpO2 97%. Gen/Constitutional: Obese no distress HEENT: Normocephalic, atraumatic. PERRLA, No oropharyngeal lesions or masses, external ears and nose shows no lesions or scars. Pupils reacted to light Neck: Supple, no JVD, no lymphadenopathy, no thyromegaly, no carotid bruits, no stridor, trachea midline Chest: non tender to palpation, without deformity Respiratory: No wheezing Heart: Regular rate and rhythm, no murmurs, clicks, gallops, or rubs, radial pulses bilaterally equal Abd: Soft, nontender, bowel sounds present, no hepatosplenomegaly. Ext: No edema Neuro: Alert, Oriented to person, place and time. Normal mood and affect. Skin: Warm and dry, without lesions Musculoskeletal: Normal gait and station, strength equal and normal and full ROM in all 4 extremities Assessment & Plan: ICD-10-CM 1. LEDA (obstructive sleep apnea) G47.33 2. Morbid obesity (HCC) E66.01 3. Restless legs syndrome (RLS) G25.81 4. Essential (primary) hypertension I10 Plan: Continue CPAP Discussed sleep hygiene Ropinirole Continue antihypertensives Will adjust CPAP pressure to 4 cmH2O Return in about 6 months (around 02/07/2024). Documentation for this visit on August 06 was completed using a template. I have seen and examined the patient. Everything documented was personally performed at this visit with the necessary additions, deletions and changes made as appropriate. Philippe Granados MD 08/07/2023 10:36 AM LOAN INTERVIEWER INTERVIEWER documented in this encounter Plan of Treatment Upcoming Encounters Date Type Department Care Team (Late st Contact Info) Description 08/07/2024 10:00 AM LOAN INTERVIEWER Office Visit [facility] - Pulmonology & Sleep Medicine [facility] [address] [place] [address] Philippe Granados MD [address] [place] [address] documented as of this encounter Visit Diagnoses Diagnosis LEDA (obstructive sleep apnea)- Primary Obstructive sleep apnea (adult) (pediatric) Morbid obesity (HCC) Morbid obesity Restless legs syndrome (RLS) Essential (primary) hypertension Unspecified essential hypertension documented in this encounter Care Teams Credit Reference Clerk Relationship Specialty Start Date End Date Rox Bustillo APRN, TJ [address] [place] [address] PCP - General Advanced Practice Nurse 10/05/21 Philippe Granados MD [address] [place] [address] Consulting Physician Pulmonary Disease 03/30/22 documented as of this encounter
--- OUTSIDE RECORDS SUMMARY | 2024-06-13 23:55 | XMS_ITS | Encounter Summary ---
Author Organization [facility] [employer] Care Team Providers Care Expander Machine Operator Name Role Phone Iwona, Rox Horton APRN, CNP Primary Care Provider Encounter Details Date Type Department Care Team (Latest Contact Info) Description 11/02/2021 Travel Social History Tobacco Use Types Packs/Day [...] st Contact Info) Description 08/07/2024 10:00 AM CAN PATCHER Office Visit [facility] - Pulmonology & Sleep Medicine [facility] [address] [place] [address] Philippe Granados MD [address] [place] [address] documented as of this encounter Visit Diagnoses Not on filedocumented in this encounter Care Teams Expander Machine Operator Relationship Specialty Start Date End Date Rox Bustillo APRN, METAL MACHINE OPERATOR [address] [place] [address] PCP - General Advanced Practice Nurse 10/05/21 documented as of this encounter
--- OUTSIDE RECORDS SUMMARY | 2024-06-13 23:55 | XMS_ITS | Encounter Summary ---
Author Organization [facility] Address [address] [address] Phone Care Team Providers Care Dog Or Horse Racing Official Name Role Phone Rox Bustillo APRN, CNP Primary Care Provider Reason for Referral * Consult, Test & Initiate Treatment (Routine) - Closed Specialty Diagnoses / Procedures Referred By Guillaume fabian Referred To Contact Sleep Center Diagnoses LEDA (obstructive sleep apnea) Philippe Granados MD [address] [place] [address] Phone: tel: fax: [facility] [address] [place] [address] Phone: tel: fax: Referral ID Status Reason Start Date Expiration Date Visits Re quested Visits Authorized [id number] Closed 10/20/2021 1 1 Scheduling Instructions Summer is being referred for sleep. Please contact patient for scheduling questions or concerns. Reason for Visit * Reason Comments New Patient Referral from Susan Bustillo for sleep disorder * Consult, Test & Initiate Treatment (Routine) - Closed Specialty Diagnoses / Procedures Referred By Guillaume fabian Referred To Contact Pulmonology Diagnoses Sleep disorder, unspecified Rox Bustillo APRN, COMPUTER TEACHER [address] [place] [address] Phone: tel: fax: Philippe Granados MD [address] [place] [address] Phone: tel: fax: Referral ID Status Reason Start Date Expiration Date Visits Re quested Visits Authorized [id number] Closed 1 1 Encounter Details Date Type Department Care Team (Late st Contact Info) Description 10/20/2021 10:45 AM CDT Office Visit [facility] - Pulmonology & Sleep Medicine - [place] [address] [place] [address] Philippe Granados MD [address] [place] [address] LEDA (obstructive sleep apnea) (Primary Dx); Essential (primary) hypertension; Morbid obesity (HCC) Discharge Disposition: Discharged to home or Selfcare [...] AM CDT documented as of this encounter Last Filed Vital Signs Vital Sign Reading Time Taken Comments Blood Pressure 128/74 10/20/2021 10:38 AM CDT Pulse 92 10/20/2021 10:38 AM CDT Temperature 36.6 ??C (97.9 ??F) 10/20/2021 1 0:38 AM CDT Respiratory Rate 16 10/20/2021 10:3 8 AM CDT Oxygen Saturation 98% 10/20/2021 10: 38 AM CDT Inhaled Oxygen Concentration - - Weight 157.3 kg (346 lb 11.2 oz) 2021 10:38 AM CDT Height 165.1 cm (5' 5 ) 10/20/2021 10:3 8 AM CDT Body Mass Index 57.69 10/20/2021 10:38 AM CDT documented in this encounter Progress Notes * Philippe Granados MD - 10/20/2021 10:45 AM CDT Images from the original note were not included. Progress Note Subjective: HPI: Summer Abhay Ross is a 21 y.o. female with referred for obstructive sleep apnea. 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 LEDA (obstructive sleep apnea) 10/20/2021 ??? Morbid obesity (HCC) 10/20/2021 ??? Essential (primary) hypertension 10/20/2021 Past Medical History: has a past medical history of Hypertension. Past Surgical History: has a past surgical history that includes Tympanostomy Tube Placement; Ovarian Cyst Removal; and Cholecystectomy. Family History: family history is not on file. Social History: reports that she has never smoked. She has never used smokeless tobacco. She reports current alcohol use. She reports that she does not use drugs. Allergies: Allergies Description Type Start Date End Date Comment Verified Concrete Mixer Operator Penicillins Allergy 21-Jul-2016 Reactions: Swelling Gio Ruiz, meat clerk List: Current Outpatient Medications Medication Sig Dispense Refill ??? acyclovir (ZOVIRAX) 400 MG Tablet Take 400 mg by mouth every 4 hours (while awake). ??? azithromycin (ZITHROMAX Z-ISHAN) 250 MG Tablet 2 tab(s) daily for 1 day, then 1 tab(s) daily for days 2-5. (Patient not taking: Reported on 10/12/2021) 6 Tab 0 ??? Clindamycin HCl (CLEOCIN) 300 MG Capsule Take 300 mg by mouth every 8 hours. ??? ferrous sulfate 325 (65 Fe) MG Tablet Take 1 Tab by mouth 2 times daily. (Patient not taking: Reported on 10/12/2021) 180 Tab 0 ??? HYDROcodone-acetaminophen (NORCO) 5-325 MG Tablet Take 1 Tab by mouth every 6 hours as needed for Moderate or more severe pain. (Patient not taking: Reported on 10/12/2021) 10 Tab 0 ??? hydrOXYzine (ATARAX) 25 MG Tablet Take 25 mg by mouth every 6 hours as needed. (Patient not taking: Reported on 10/20/2021) ??? ibuprofen (MOTRIN) 600 MG Tablet Take 1 Tab by mouth every 6 hours as needed for Pain. (Patientnot taking: Reported on 10/12/2021) 20 Tab 0 ??? ketorolac (TORADOL) 10 MG Tablet Take 1 Tab by mouth every 6 hours as needed for Mild or more severe pain. (Patient not taking: Reported on 10/12/2021) 15 Tab 0 ??? metoprolol Succinate (TOPROL-XL) 25 MG TABLET SR 24 HR Take 25 mg by mouth daily. ??? metroNIDAZOLE (FLAGYL) 500 MG Tablet Take 1 Tab by mouth 2 times daily. (Patient not taking: Reported on 10/12/2021) 28 Tab 0 ??? triamterene-hydrochlorothiazide (MAXZIDE) 37.5-25 MG Tablet Take 1 Tablet by mouth daily. No current facility-administered medications for this visit. Review of Systems Constitutional: negative Eyes: negative Ears, nose, mouth, throat, and face: negative Respiratory: negative Cardiovascular: negative Gastrointestinal: negative Genitourinary:negative Integument/breast: negative Hematologic/lymphatic: negative Musculoskeletal:negative Neurological: negative Behvioral/Psych: negative Endocrine: negative Allergic/Immunologic: Allergies Allergen Reactions ??? Penicillins Swelling Objective: Vitals: Blood pressure 128/74, pulse 92, temperature 97.9 ??F (36.6 ??C), resp. rate 16, height 5' 5 (1.651 m), weight 346 lb 11.2 oz (157.3 kg), last menstrual period 12/16/2019, SpO2 98 %. Gen/Constitutional: Obese no distress HEENT: Normocephalic, atraumatic. [...] ICD-10-CM 1. LEDA (obstructive sleep apnea) G47.33 SLEEP STUDY REFERRAL 2. Essential (primary) hypertension I10 3. Morbid obesity (HCC) E66.01 Plan: Sleep study Discussed sleep hygiene Continue antihypertensives Be as active as she is able Return in about 3 months (around 01/20/2022). Documentation for this visit on October 20 was completed using a template. I have seen and examined the patient. Everything documented was personally performed at this visit with the necessary additions, deletions and changes made as appropriate. Philippe Granados MD 10/20/2021 10:52 AM CDT * Liya Macedo - 10/20/2021 10:42 AM CDT 10/20/21 1041 OTHER Neck Circumference in Inches 19.25 EPWORTH SLEEP STUDY Sitting and reading 0 - No Chance of Dozing Watching TV 2 - Moderate Chance of Dozing Sitting inactive in a public place 0 - No Chance of Dozing As a passenger in a car for an hour without break 0 - No Chance of Dozing Lying down to rest in the afternoon when circumstances permit 2 - Moderate Chance of Dozing Sitting and talking to someone 0 - No Chance of Dozing Sitting quietly after a lunch without alcohol 0 - No Chance of Dozing In a car, while stopped for a few minutes in traffic 0 - No Chance of Dozing Total [place]land Score 4 Stop Bang Assessment (High risk of LEDA: answering yes to 5 or more items) Do you snore loudly (louder than talking or loud enough to be heard through closed doors)? 1 - Yes Do you often feel tired, fatigued, or sleepy during daytime? 1 - Yes Has anyone observed you stop breathing during your sleep? 1 - Yes Do you have or are you being treated for high blood pressure? 1 - Yes BMI more than 35 kg/m2? 1 - Yes Age over 50 yr old? 0 - No Neck circumference greater than 16 inches (female), 17 inches (male)? 1 - Yes Gender Male? 0 - No Stop Bang Risk Score: (High risk of LEDA: answering yes to five or more items) 6 documented in this encounter Plan of Treatment Upcoming Encounters Date Type Department Care Team (Late st Contact Info) Description 08/07/2024 10:00 AM EXHIBITION SPECIALIST Office Visit [facility] [place] [facility] - Pulmonology & Sleep Medicine [facility] [address] [place] [address] Philippe Granados MD [address] [place] [address] Scheduled Referrals Name Type Priority Associated Diagnoses Orde r Schedule SLEEP STUDY REFERRAL Outpatient Referral Routine LEDA (obstructive sleep apnea) Expected: 10/20/2021, Expires: 11/19/2021 documented as of this encounter Visit Diagnoses Diagnosis LEDA (obstructive sleep apnea)- Primary Obstructive sleep apnea (adult) (pediatric) Essential (primary) hypertension Unspecified essential hypertension Morbid obesity (HCC) Morbid obesity documented in this encounter Care Teams Dog Or Horse Racing Official Relationship Specialty Start Date End Date Rox Bustillo APRN, TJ [address] [place] [address] PCP - General Advanced Practice Nurse 10/05/21 documented as of this encounter
--- OUTSIDE RECORDS SUMMARY | 2024-06-13 23:55 | XMS_ITS | Encounter Summary ---
Author Organization [facility] Care Team Providers Care Rn Long Term Care Name Role Phone Iwona, Rox Sol AL CNP Primary Care Provider Philippe Granados MD Unavailable Encounter Details Date Type Department Care Team (Latest Contact Info) Description 01/24/2023 Travel Social History Tobacco Use Types Packs/Day [...] suspected to have Coronavirus/COVID-19? No / Unsure 01/24/2023 9:16 PM CDT documented as of this encounter Plan of Treatment Upcoming Encounters Date Type Department Care Team (Late st Contact Info) Description 08/07/2024 10:00 AM AVIATION ORDNANCE OFFICER Office Visit [facility] - Pulmonology & Sleep Medicine [facility] [address] [place] [address] Philippe Granados MD [address] [place] [address] documented as of this encounter Visit Diagnoses Not on filedocumented in this encounter Care Teams Rn Long Term Care Relationship Specialty Start Date End Date Rox Bustillo APRN, TJ [address] [place] [address] PCP - General Advanced Practice Nurse 10/05/21 Philippe Granados MD [address] [place] [id number] Consulting Physician Pulmonary Disease 03/30/22 documented as of this encounter
--- OUTSIDE RECORDS SUMMARY | 2024-06-13 23:55 | XMS_ITS | Encounter Summary ---
Author Organization [facility] Care Team Providers Care Breaker Oiler Name Role Phone Rox Bustillo APRN, CNP Primary Care Provider Philippe Granados MD Unavailable Encounter Details Date Type Department Care Team (Latest Contact Info) Description 08/07/2023 Travel Social History Tobacco Use Types Packs/Day [...] st Contact Info) Description 08/07/2024 10:00 AM MOTOR POOL CLERK Office Visit [facility] - Pulmonology & Sleep Medicine [facility] [address] [place] [address] Philippe Granados MD [address] [place] [address] documented as of this encounter Visit Diagnoses Not on filedocumented in this encounter Care Teams Breaker Oiler Relationship Specialty Start Date End Date Rox Bustillo APRN, CNP [address] [place] [address] PCP - General Advanced Practice Nurse 10/05/21 Philippe Granados MD [address] [place] [address] Consulting Physician Pulmonary Disease 03/30/22 documented as of this encounter
--- OUTSIDE RECORDS SUMMARY | 2024-06-13 23:55 | XMS_ITS | Referral Summary ---
Author Organization [facility] Address [address] [place] [address] Care Team Providers Care Battery Plate Remover Name Role Phone Glenny Lewis MD Primary Care Provider Source Comments [facility],non[facility] Affiliates and Associated Physician Practices is amultiple site organization consisting of ambulatory clinics and hospital sitesin [place], [place], [place] and [place]. This disclosure is being madepursuant to the Care Everywhere program and may not contain all information available regarding this patient. Last updated 18.[facility] Social History Tobacco Use Types Packs/Day Years Used Date Smoking Tobacco: Never Assessed Sex and Gender Information Value Date Recorded Sex Assigned at Not on file Gender Identity Not on file Sexual Orientation Not on file Plan of Treatment Not on file Care Teams Battery Plate Remover Relationship Specialty Start Date End Date Glenny Lewis MD PCP - General 05/23/18
--- OUTSIDE RECORDS SUMMARY | 2024-06-13 23:55 | XMS_ITS | Encounter Summary ---
Author Organization [facility] [employer] Care Team Providers Care Rehabilitation Nurse Name Role Phone Iwona, Rox Horton APRN, CNP Primary Care Provider Encounter Details Date Type Department Care Team (Latest Contact Info) Description 01/18/2022 Travel Social History Tobacco Use Types Packs/Day [...] suspected to have Coronavirus/COVID-19? No / Unsure 01/18/2022 7:40 PM CDT documented as of this encounter Plan of Treatment Upcoming Encounters Date Type Department Care Team (Late st Contact Info) Description 08/07/2024 10:[address] CREW MEMBER Office Visit [facility] - Pulmonology & Sleep Medicine [facility] [address] [place] [address] Philippe Granados MD [address] [place] [address] documented as of this encounter Visit Diagnoses Not on filedocumented in this encounter Care Teams Rehabilitation Nurse Relationship Specialty Start Date End Date Rox Bustillo APRN, MARKETING EDITOR [address] [place] [address] PCP - General Advanced Practice Nurse 10/05/21 documented as of this encounter
--- OUTSIDE RECORDS SUMMARY | 2024-06-13 23:55 | XMS_ITS | Encounter Summary ---
Author Organization [facility] Address [address] [place] [address] Phone Care Team Providers Care Chisel Grinder Name Role Phone Iwona, Rox Horton APRN, CNP Primary Care Provider Philippe Granados MD Unavailable Reason for Visit * Reason Comments Abdominal Pain Encounter Details Date Type Department Care Team (Late st Contact Info) Description 01/24/2023 9:22 PM CDT - 2023 12:57 AM CDT Emergency [facility] Emergency [address] [place] [address] Fabian Avila MD [address] [place] [address] Orthostatic hypotension Discharge Disposition: Discharged to home or Selfcare [...] Sign Reading Time Taken Comments Blood Pressure 134/74 2023 12:30 AM CDT Pulse 90 2023 12:30 AM CDT Temperature 37.1 ??C (98.8 ??F) 01/24/2023 9:17 PM CD T Respiratory Rate 19 01/24/2023 9:17 PM CDT Oxygen Saturation 100% 2023 12:30 AM CDT Inhaled Oxygen Concentration - - Weight 144.2 kg (318 lb) 01/24/2023 9:17 PM CDT Height 165.1 cm (5' 5 ) 01/24/2023 9:17 PM CDT Body Mass Index 52.92 01/24/2023 9:17 PM CDT documented in this encounter Medications at Time of Discharge metoprolol Succinate (TOPROL-XL) 25 MG TABLET SR 24 HR Take 25 mg by mouth daily. triamterene-hydro chlorothiazide (MAXZIDE) 37.5-25 MG Tablet Take 1 Tablet by mouth daily. documented as of this encounter ED Notes * Bryanna Mccabe RN - 2023 12:51 AM CDT Patient discharged. Discharge instructions and patient educational material reviewed with patient; questions and concerns addressed; patient verbalizes understanding, using teach back. Patient was given 0 prescriptions. Patient discharged per ambulatory mode with self as responsible democrat. * Bryanna Mccabe RN - 2023 12:45 AM CDT Pt states she is feeling better and would like to go home now. Provider made aware. * Bryanna Mccabe RN - 2023 12:14 AM CDT Pt medicated per provider orders. Pt educated on intended effects and side effects of medication and verbalized understanding, able to provide teach back of education. * Bryanna Mccabe RN - 2023 12:03 AM CDT RN attempted IV access x2 without success. Additional RN will attempt. * Fabian Avila MD - 01/24/2023 11:30 PM CDT Chief Complaint Patient presents with ??? Abdominal Pain Patient is a 22-year-old female who is 1 week status post gastric sleeve surgery done at [facility]. She comes in tonight because she is been having some weakness and some lightheadedness for the past 2 days. She is had some mild right-sided abdominal pain that has been present postoperatively. She is not had any difficulty urinating or having a bowel movement. She is not had any fever or chills. No current facility-administered medications for this encounter. [...] History Narrative ??? Not on file BP 134/74 Pulse 90 Temp 98.8 ??F (37.1 ??C) (Tympanic) Resp 19 Ht 5' 5 (1.651 m) Wt 318 lb (144.2 kg) LMP 01/23/2023 (Approximate) SpO2 100% BMI 52.92 kg/m?? Review of Systems Constitutional: Negative for activity change, appetite change, chills and fever. HENT: Negative for congestion, ear pain, rhinorrhea, sore throat and trouble swallowing. Eyes: Negative for pain and visual disturbance. Respiratory: Negative for cough, shortness of breath and wheezing. Cardiovascular: Negative for chest pain. Gastrointestinal: Positive for abdominal pain (Postop). Negative for diarrhea, nausea and vomiting. Genitourinary: Negative for difficulty urinating and dysuria. Musculoskeletal: Negative for arthralgias and back pain. Skin: Negative for pallor. Neurological: Negative for headaches. Hematological: Negative for adenopathy. Psychiatric/Behavioral: Negative for confusion. All other systems reviewed and are negative. Physical Exam Vitals and nursing note reviewed. Constitutional: General: She is not in acute distress. Appearance: She is well-developed. She is not diaphoretic. HENT: Head: Normocephalic and atraumatic. Eyes: Conjunctiva/sclera: Conjunctivae normal. Pupils: Pupils are equal, round, and reactive to light. Cardiovascular: Rate and Rhythm: Normal rate and regular rhythm. Heart sounds: Normal heart sounds. No murmur heard. No friction rub. No gallop. Pulmonary: Effort: Pulmonary effort is normal. No respiratory distress. Breath sounds: Normal breath sounds. No wheezing or rales. Abdominal: General: Bowel sounds are normal. There is no distension. Palpations: Abdomen is soft. Tenderness: There is abdominal tenderness (Mild) in the right upper quadrant. There is no right CVAtenderness, left CVA tenderness, guarding or rebound. Hernia: No hernia is present. Musculoskeletal: General: No tenderness or deformity. Normal range of motion. Cervical back: Normal range of motion and neck supple. Lymphadenopathy: Cervical: No cervical adenopathy. Skin: General: Skin is warm and dry. Coloration: Skin is not pale. Findings: No erythema or rash. Neurological: Mental Status: She is alert and oriented to person, place, and time. Psychiatric: Behavior: Behavior normal. Thought Content: Thought content normal. Judgment: Judgment normal. Procedures Imaging Results None Labs Reviewed CMP (COMPREHENSIVE METABOLIC PANEL) - Abnormal; Notable for the following components: Result Value SODIUM 135 (*) POTASSIUM 3.4 (*) ANION GAP 18.4 (*) All other components within normal limits CBC WITH AUTO DIFFERENTIAL - Abnormal; Notable for the following components: WBC 14.46 (*) RBC 5.40 (*) MCV 78.5 (*) MCH 24.4 (*) RDW 16.3 (*) ABSOLUTE NEUTROPHILS 9.95 (*) ABSOLUTE LYMPHOCYTES 3.26 (*) ABSOLUTE MONOCYTES 1.08 (*) All other components within normal limits LIPASE - Normal COMPLETE BLOOD COUNT (CBC) WITH DIFF Narrative: The following orders were created for panel order CBC with Diff [id number]. Procedure Abnormality Status --------- ------ CBC with Auto Differential[[id number]] Abnormal Final result Please view results for these tests on the individual orders. EXTRA TUBES Narrative: The following orders were created for panel order Blood, Extra Tubes. Procedure Abnormality Status --------- ------ Blue Top Tube[[id number]] Final result Please view results for these tests on the individual orders. BLUE TOP TUBE Medical Decision Making Differential diagnosis: Minor dehydration, postoperative bleeding postoperative infection Amount and/or Complexity of Data Reviewed Labs: ordered. Decision-making details documented in ED Course. Clinical Impression 1. Orthostatic hypotension Disposition: Discharged Patient presents emergency room after having surgery 1 week ago with some lightheadedness. She complains of the lightheadedness primarily when she is standing up on her feet. Labs were obtained came back with normal lipase, CMP, [place] [address]. Orthostatic vitals were obtained and showed her blood pressure lying down was 118/77 with heart rate of 87 and increased to 114/81 with heart rate of 110. She was started on L of IV fluids stated she was feeling much improved. Her IV infiltrated and she did not want to stay for any further fluids so she was ready for discharge.I recommend she call her surgeon tomorrow for follow-up. Also encouraged her to increase her fluid i ntake keep herself well hydrated. * Bryanna Mccabe RN - 01/24/2023 10:42 PM CDT Pt resting in bed with call light in reach. Pt updated on plan of care. No distress noted. * Kristal Nicole RN - 01/24/2023 9:20 PM CDT Pt to triage with c/o right side pain , generalized weakness, and dizziness x 2 days. Pt reports aweek ago she had a gastric sleeve surgery done [facility]. Pt denies any V/D or urinary symptoms. Pt afebrile. documented in this encounter Plan of Treatment Upcoming Encounters Date Type Department Care Team (Late st Contact Info) Description 08/07/2024 10:00 AM HUMAN RESOURCE INTERNSHIP Office Visit [facility] - Pulmonology & Sleep Medicine [facility] [address] [place] [address] Philippe Granaods MD [address] [place] [address] documented as of this encounter Procedures Procedure Name Priority Date/Time Associated Diagnosis Comments EXTRA TUBES STAT 01/24/2023 9:25 PM CDT BLUE TOP TUBE STAT 01/24/2023 9:25 PM CDT CBC WITH AUTO DIFFERENTIAL STAT 01/24/2023 9:24 PM CDT LIPASE STAT 01/24/2023 9:24 PM CDT CMP (COMPREHENSIVE METABOLIC PANEL) STAT 01/24/2023 9:24 PM CDT COMPLETE BLOOD COUNT (CBC) WITH DIFF STAT 01/24/2023 9:24 PM CDT documented in this encounter Results * Blue Top Tube (01/24/2023 9:25 PM CDT) Blood No Phlebotomy Charged / Unknown 01/24/2023 9:25 PM CDT 01/24/2023 9:55 PM CDT us Fabian Avila MD HEMATOLOGY ORDERABLES Fin al Result [facility] [address] [place] [address] * (ABNORMAL) CBC with Auto Differential (01/24/2023 9:24 PM CDT) WBC 14.46(H) 4.00 - 12.00 10(3)/mcL 01/24/2023 10:00 PM CDT [facility] RBC 5.40(H) 3.80 - 5.30 10(6)/mcL 01/24/2023 10:00 PM CDT [facility] HEMOGLOBIN (HGB) 13.2 12.0 - 15.8 g/dL 01/24/2023 10:00 PM CDT [facility] HEMATOCRIT (HCT) 42.4 36.0 - 47.0 % 01/24/2023 10:00 PM CDT [facility] MCV 78.5(L) 82.0 - 96.0 fL 01/24/2023 10:00 PM CDT [facility] MCH 24.4(L) 26.0 - 34.0 pg 01/24/2023 10:00 PM CDT [facility] MCHC 31.1 31.0 - 36.0 g/dL 01/24/2023 10:00 PM CDT [facility] PLATELET COUNT 327 140 - 440 10(3)/[facility] 01/24/2023 10:00 PM CDT [facility] RDW 16.3(H) 11.8 - 15.5 % 01/24/2023 10:00 PM CDT [facility] MPV 12.3 9.7 - 12.4 fL 01/24/2023 10:00 PM CDT [facility] NEUTROPHILS 68.8 47.0 - 73.0 % 01/24/2023 10:00 PM CDT [facility] LYMPHOCYTES 22.5 18.0 - 42.0 % 01/24/2023 10:00 PM CDT [facility] MONOCYTES 7.5 4.0 - 12.0 % 01/24/2023 10:00 PM CDT [facility] EOSINOPHILS 0.9 0.0 - 5.0 % 01/24/2023 10:00 PM CDT [facility] BASOPHILS 0.3 0.0 - 1.0 % 01/24/2023 10:00 PM CDT [facility] ABSOLUTE NEUTROPHILS 9.95(H) 1.60 - 7.70 10(3)/mcL 01/24/2023 10:00 PM CDT [facility] ABSOLUTE LYMPHOCYTES 3.26(H) 1.30 - 3.20 10(3)/[facility] 01/24/2023 10:00 PM CDT [facility] ABSOLUTE MONOCYTES 1.08(H) 0.20 - 1.00 10(3)/mcL 01/24/2023 10:00 PM CDT [facility] ABSOLUTE EOSINOPHIL 0.13 0.00 - 0.40 10(3)/[facility] 01/24/2023 10:00 PM CDT [facility] ABSOLUTE BASOPHILS 0.04 0.00 - 0.10 10(3)/[facility] 01/24/2023 10:00 PM CDT [facility] NRBC PER 100 WBC 0 01/25/20 10:00 PM CDT [facility] Blood Venipuncture / Unknown 01/24/2023 9:24 PM CDT 01/24/2023 9:55 PM CDT Fabian Avila MD HEMATOLOGY ORDERABLES Fin al Result Performing Organization Address City/[facility]/ZIP Co de Phone Number [facility] [address] [place] [address] * Lipase [id number] (01/24/2023 9:24 PM CDT) Pathologist [facility] LIPASE 65 8 - 78 U/L 01/24/2023 10:34 PM CDT [facility] Blood Venipuncture / Unknown 01/24/2023 9:24 PM CDT 01/24/2023 9:55 PM CDT Fabian Avila MD CHEMISTRY ORDERABLES Farida l Result Performing Organization Address City/[facility]/ZIP Co de Phone Number [facility] [address] [place] [address] * (ABNORMAL) CMP (Comprehensive Metabolic Panel) (01/24/2023 9:24 PM CDT) SODIUM 135(L) 136 - 145 mmol/L 01/24/2023 10:34 PM CDT [facility] POTASSIUM 3.4(L) 3.5 - 5.1 mmol/L 01/24/2023 10:34 PM CDT [facility] CHLORIDE 98 98 - 107 mmol/L 01/24/2023 10:34 PM CDT [facility] CO2, VENOUS 22 22 - 30 mmol/L 01/24/2023 10:34 PM CDT [facility] ANION GAP 18.4(H) <18.0 mmol/L 01/24/2023 10:34 PM CDT [facility] GLUCOSE 87 70 - 99 mg/dL 01/24/2023 10:34 PM CDT [facility] BUN 14 5 - 18 mg/dL 01/24/2023 10:34 PM CDT [facility] CREATININE, BLOOD 0.71 0.60 - 1.00 mg/dL 01/24/2023 10:34 PM CDT [facility] BUN/CREATININE RATIO 20 12 - 20 ratio 01/24/2023 10:34 PM CDT [facility] TOTAL PROTEIN 7.6 6.3 - 8.2 g/dL 01/24/2023 10:34 PM CDT [facility] ALBUMIN 3.9 3.5 - 5.0 g/dL 01/24/2023 10:34 PM CDT [facility] A/G RATIO 1.1 1.0 - 2.2 01/24/2023 10:34 PM CDT [facility] CALCIUM 9.7 8.7 - 10.5 mg/dL 01/24/2023 10:34 PM CDT [facility] T BILI 0.5 0.2 - 1.2 mg/dL 01/24/2023 10:34 PM CDT [facility] SGOT (AST) 19 5 - 34 U/L 01/24/2023 10:34 PM T [facility] SGPT (ALT) 36 0 - 55 U/L 01/24/2023 10:34 PM [facility] ALKALINE PHOSPHATASE 87 40 - 150 U/L 01/24/2023 10:34 PM CDT [facility] GFR, ESTIMATED >60 >=60 01/24/2023 10:34 PM T [facility] Comment: Creatinine Clearance is the preferred criteria for selecting drug dose adjustments in renally impaired patients. ??The GFR is provided as additional pertinent clinical information. GFR is reported in mL/min/1.73 sq m. Calculation based on the Chronic Kidney Disease Epidemiology Collaboration (CKD- EPI) equation refit without adjustment for race. GFR, EST. >60 >=60 023 10:34 PM CDT [facility] GFR, EST. NONAFRICAN >60 >=60 01/24/2023 10:34 PM CDT [facility] Blood Venipuncture / Unknown 01/24/2023 9:24 PM CDT 01/24/2023 9:55 PM CDT us Fabian Avila MD CHEMISTRY ORDERABLES Farida l Result [facility] [address] [place] [address] documented in this encounter Visit Diagnoses Diagnosis Orthostatic hypotension- Primary documented in this encounter Administered Medications Inactive Administered Medications - up to 3 most recent administrations Medication Order MAR Action Action Date Dose Rate Site 0.9 % sodium chloride solution at 1,000 mL/hr, Intravenous, ONCE, 1 dose, On Fara 01/25/23 at 0000 New Bag 2023 12:13 AM CDT 1000 mL/hr documented in this encounter Active and Recently Administered Medications Times are shown in CDT. Scheduled Medication Order 01/23/2023 01/24/2023 2023 0.9 % sodium chloride solution (COMPLETED) at 1,000 mL/hr, Intravenous, ONCE, 1 dose, On Fara 01/25/23 at 0000 0013 (New Bag - Prov ider: Bryanna Mccabe RN)[id number] (Stopped - Provider: Bryanna Mccabe RN) documented in this encounter Care Teams Chisel Grinder Relationship Specialty Start Date End Date Rox Bustillo, INSTRUMENTATION AND CONTROLS DESIGNER, DIRECTOR WOMEN [address] [place] [address] PCP - General Advanced Practice Nurse 10/05/21 Philippe Granados MD [address] [place] [address] Consulting Physician Pulmonary Disease 03/30/22 documented as of this encounter
--- OUTSIDE RECORDS SUMMARY | 2024-06-13 23:55 | XMS_ITS | Clinical Summary ---
Author Organization [facility] Address [address] [place] [address] Care Team Providers Care Business Insight And Analytics Manager Name Role Phone Glenny Lewis MD Primary Care Provider [phone] Source Comments [facility],non-owned Affiliates and Associated Physician Practices is amultiple site organization consisting of ambulatory clinics and hospital sitesin [place], [place], [place] and [place]. This disclosure is being madepursuant to the Care Everywhere program and may not contain all information available regarding this patient. Last updated 18.[facility] iPierian Social History Tobacco Use Types Packs/Day Years Used Date Smoking Tobacco: Never Assessed Sex and Gender Information Value Date Recorded Sex Assigned at Not on file Gender Identity Not on file Sexual Orientation Not on file Plan of Treatment Health Maintenance Due Date Last Done Comments PAP SMEAR 1998 HIV SCREENING 2013 HPV VACCINE (1 - 3-dose series) 2013 HEPATITIS C SCREENING 01/21/2016 DTAP/TDAP/TD VACCINES (1 - Tdap) 2017 HEPATITIS B VACCINE (1 of 3 - 19+ 3-dose series) 2017 DEPRESSION SCREENING 06/04/2023 COVID-19 VACCINE (1 - 2023-2 5 season) 2024 INFLUENZA VACCINE (#1) 2024 ZOSTER VACCINE (1 of 2) 01/26/2048 HIB VACCINE Aged Out No longer eligi ble based on patient's age to complete this topic MENINGOCOCCAL VACCINE Aged Out No warren denis eligible based on patient's age to complete this topic PNEUMOCOCCAL VACCINE Aged Out No long er eligible based on patient's age to complete this topic Care Teams Business Insight And Analytics Manager Relationship Specialty Start Date End Date Glenny Lewis MD PCP - General 05/23/18
--- OUTSIDE RECORDS SUMMARY | 2024-06-13 23:55 | XMS_ITS | Encounter Summary ---
Author Organization [facility] Care Team Providers Care Barrel And Receiver Aligner Name Role Phone Iwona, Rox Sol AL CNP Primary Care Provider Phliippe Granados MD Unavailable Encounter Details Date Type Department Care Team (Latest Contact Info) Description 09/28/2022 Travel Social History Tobacco Use Types Packs/Day [...] suspected to have Coronavirus/COVID-19? No / Unsure 09/28/2022 10:39 AM CDT documented as of this encounter Plan of Treatment Upcoming Encounters Date Type Department Care Team (Late st Contact Info) Description 08/07/2024 10:00 AM RAILROAD TRACK REPAIR SUPERVISOR Office Visit [facility] - Pul[facility]ology & Sleep Medicine [facility] [address] [place] [address] Philippe Granados MD [address] [place] [address] documented as of this encounter Visit Diagnoses Not on filedocumented in this encounter Care Teams Barrel And Receiver Aligner Relationship Specialty Start Date End Date Rox Bustillo APRN, TJ [address] [place] [address] PCP - General Advanced Practice Nurse 10/05/21 Philippe Granados MD [address] [place] [phone] Consulting Physician Pulmonary Disease 03/30/22 documented as of this encounter
--- OUTSIDE RECORDS SUMMARY | 2024-06-13 23:55 | XMS_ITS | Encounter Summary ---
Author Organization [facility] Address [address] [place] [address] Phone Care Team Providers Care Display Coordinator Name Role Phone Iwona, Rox Horton APRN, CNP Primary Care Provider Philippe Granados MD Unavailable Encounter Details Date Type Department Care Team (Late st Contact Info) Description 04/10/2022 Telephone [facility] - Pulmonology & Sleep Medicine [facility] [address] [place] [address] Philippe Granados MD [address] [place] [address] Social History Tobacco Use Types Packs/Day Years [...] AM CDT documented as of this encounter Miscellaneous Notes * Telephone Encounter - Lanette Frye RN - 04/10/2022 8:14 AM SAFETY DEPOSIT SUPERVISOR Prescription for ropinirole was for 4 0.25 mg tablets nightly insurance prefers 1 1mg tablet. Script sent to pharmacy TY DEPOSIT SUPERVISOR documented in this encounter Plan of Treatment Upcoming Encounters Date Type Department Care Team (Late st Contact Info) Description 08/07/2024 10:00 AM SAFETY DEPOSIT SUPERVISOR [facility] - [place] [address] [place] [address] Philippe Granados MD [address] [place] [address] documented as of this encounter Visit Diagnoses Not on filedocumented in this encounter Care Teams Display Coordinator Relationship Specialty Start Date End Date Rox Bustillo APRN, SURGEON PARTNER [address] [place] [address] PCP - General Advanced Practice Nurse 10/05/21 Philippe Granados MD [address] [place] [phone] Consulting Physician Pulmonary Disease 03/30/22 documented as of this encounter
--- OUTSIDE RECORDS SUMMARY | 2024-06-13 23:55 | XMS_ITS | Encounter Summary ---
Author Organization [facility] Care Team Providers Care Gas Or Water Meter Installer Name Role Phone Iwona, Rox Sol AL CNP Primary Care Provider Philippe Granados MD Unavailable Encounter Details Date Type Department Care Team (Latest Contact Info) Description 07/11/2022 Travel Social History Tobacco Use Types Packs/Day [...] Coronavirus/COVID-19? No / Unsure 07/11/2022 6:41 AM AIRPLANE TESTER documented as of this encounter Plan of Treatment Upcoming Encounters Date Type Department Care Team (Late st Contact Info) Description 08/07/2024 10:00 AM AIRPLANE TESTER Office Visit [facility] - Pulmonology & Sleep Medicine [facility] [address] [place] [address] Philippe Granados MD [address] [place] [address] documented as of this encounter Visit Diagnoses Not on filedocumented in this encounter Care Teams Gas Or Water Meter Installer Relationship Specialty Start Date End Date Rox Bustillo APRN, TJ [address] [place] [address] PCP - General Advanced Practice Nurse 10/05/21 Philippe Granados MD [address] [place] [address] Consulting Physician Pulmonary Disease 03/30/22 documented as of this encounter
--- OUTSIDE RECORDS SUMMARY | 2024-06-13 23:55 | XMS_ITS | Encounter Summary ---
Author Organization [facility] Address [address] [place] [address] Phone Care Team Providers Care Music Library Assistant Name Role Phone Iwona, Rox Horton APRN, CNP Primary Care Provider Philippe Granados MD Unavailable Reason for Visit * Reason Comments Sleep Apnea Restless Leg Encounter Details Date Type Department Care Team (Late st Contact Info) Description 09/28/2022 11:00 AM CDT Office Visit [facility] - Pulmonology & Sleep Medicine [facility] [address] [place] [address] Philippe Granados MD [address] [place] [address] LEDA (obstructive sleep apnea) (Primary Dx); Morbid [...] Reading Time Taken Comments Blood Pressure 128/74 09/28/2022 10:55 AM CDT Pulse 87 09/28/2022 10:55 AM CDT Temperature 36.4 ??C (97.6 ??F) 09/28/2022 1 0:55 AM CDT Respiratory Rate 14 09/28/2022 10:5 5 AM CDT Oxygen Saturation 98% 09/28/2022 10: 55 AM CDT Inhaled Oxygen Concentration - - Weight 162.3 kg (357 lb 14.4 oz) 2022 10:55 AM CDT Height 165.1 cm (5' 5 ) 09/28/2022 10:5 5 AM CDT Body Mass Index 59.56 09/28/2022 10:55 AM CDT documented in this encounter Progress Notes * Philippe Granados MD - 09/28/2022 11:00 AM CDT Images from the original note were not included. Progress Note Subjective: HPI: Maeve Ross is a 22 y.o. 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 Sleep study done in November 2021 showed severe obstructive sleep apnea with AHI of 37.5 She was also found to have periodic leg movements [facility] resources [facility] Problem List: Patient Active Problem List Diagnosis Date Noted ??? Restless legs syndrome (RLS) 03/30/2022 ??? LEDA (obstructive sleep apnea) 10/20/2021 ??? 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 acyclovir (ZOVIRAX) 400 MG Tablet Take 400 mg by mouth every 4 hours (while awake). (Patient not taking: Reported on 09/28/2022) ??? ferrous sulfate 325 (65 Fe) MG Tablet Take 1 Tab by mouth 2 times daily. (Patient not taking: Reported on 10/12/2021) 180 Tab 0 ??? HYDROcodone-acetaminophen (NORCO) 5-325 MG Tablet Take 1 Tablet by mouth 2 times daily as needed for Mild or more severe pain. (Patient not taking: Reported on 09/28/2022) 8 Tablet 0 ??? metoprolol Succinate (TOPROL-XL) 25 MG TABLET SR 24 HR Take 25 mg by mouth daily. ??? omeprazole (PriLOSEC) 20 MG CAPSULE DELAYED RELEASE Take 1 Capsule by mouth daily. (Patient nottaking: Reported on 09/28/2022) 30 Capsule 0 ??? rOPINIRole (REQUIP) 1 MG Tablet Take 1 Tablet by mouth nightly. (Patient not taking: Reported on 09/28/2022) 90 Tablet 0 ??? traMADol (Ultram) 50 MG Tablet Take 1 Tablet by mouth every 8 hours as needed for Moderate or more severe pain. (Patient not taking: Reported on 09/28/2022) 12 Tablet 0 ??? triamterene-hydrochlorothiazide (MAXZIDE) 37.5-25 [...] Swelling Objective: Vitals: Blood pressure 128/74, pulse 87, temperature 97.6 ??F (36.4 ??C), resp. rate 14, height 5' 5 (1.651 m), weight 357 lb 14.4 oz (162.3 kg), last menstrual period 05/04/2022, SpO2 98 %. Gen/Constitutional: Obese no distress [...] (primary) hypertension I10 Plan: Continue CPAP Discussed Sleep hygiene Encouraged to lose weight Continue ropinirole Antihypertensives Be as active as she is able Counseled on heart healthy diet and exercise Return in about 6 months (around 03/30/2023). Documentation for this visit on September 28 was completed using a template. I have seen and examined the patient. Everything documented was personally performed at this visit with the necessary additions, deletions and changes made as appropriate. 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 Office Visit [facility] - Pulmonology & Sleep Medicine - [place] [address] [place] [address] Philippe Granados MD [address] [place] [address] documented as of this encounter Visit Diagnoses Diagnosis LEDA (obstructive sleep apnea)- Primary Obstructive sleep apnea (adult) (pediatric) Morbid obesity (HCC) Morbid obesity Restless legs syndrome (RLS) Essential (primary) hypertension Unspecified essential hypertension documented in this encounter Care Teams Music Library Assistant Relationship Specialty Start Date End Date Rox Bustillo APRN, STONE UNLOADER [address] [place] [address] PCP - General Advanced Practice Nurse 10/05/21 Philippe Granados MD [address] [place] [address] Consulting Physician Pulmonary Disease 03/30/22 documented as of this encounter
--- OUTSIDE RECORDS SUMMARY | 2024-06-13 23:55 | XMS_ITS | Encounter Summary ---
Author Organization [facility] Address [address] [facility] [place] [address] Phone Care Team Providers Care Pharmaceutical Salesperson Name Role Phone Iwona, Rox Horton APRN, CNP Primary Care Provider Reason for Visit * Reason Comments Shoulder Pain Encounter Details Date Type Department Care Team (Late st Contact Info) Description 01/18/2022 7:45 PM CDT - 01/18/2022 9:21 PM CDT Emergency [facility] [address] [place] [id number] Nayan Mauricio, PAC [address] [place] [address] Cervical strain, acute Discharge Disposition: Discharged to home or Selfcare [...] Sign Reading Time Taken Comments Blood Pressure 145/89 01/18/2022 7:41 PM CDT Pulse 96 01/18/2022 7:41 PM CDT Temperature 35.6 ??C (96 ??F) 01/18/2022 7:41 PM CDT Respiratory Rate 20 01/18/2022 7:41 PM CDT Oxygen Saturation 100% 01/18/2022 7:41 PM CDT Inhaled Oxygen Concentration - - Weight 156.9 kg (346 lb) 01/18/2022 7:41 PM CDT Height 165.1 cm (5' 5 ) 01/18/2022 7:41 PM CDT Body Mass Index 57.58 01/18/2022 7:41 PM CDT documented in this encounter Discharge Instructions * Attachments The following attachments cannot be sent through Care Everywhere. * Cervical Sprain Nwwl-ij-Ppak (Tamazight) documented in this encounter Medications at Time of Discharge metoprolol Succinate (TOPROL-XL) 25 MG TABLET SR 24 HR Take 25 mg by mouth daily. triamterene-hydr ochlorothiazide (MAXZIDE) 37.5-25 MG Tablet Take 1 Tablet by mouth daily. acyclovir (ZOVIRAX) 400 MG Tablet Take 400 mg by mouth every 4 hours (while awake). 2023 cyclobenzaprine (FLEXERIL) 5 MG Tablet Take 1 Tablet by mouth 3 times daily for 5 days. 15 Tablet 01/18/2022 01/23/2022 ferrous sulfate 325 (65 Fe) MG Tablet Take 1 Tab by mouth 2 times daily. 180 Tab 05/14/2017 2023 traMADol (Ultram) 50 MG TabletIndication s:Cervical strain, acute Take 1 Tablet by mouth every 8 hours as needed for Moderate or more severe pain. 12 Tablet 01/18/2022 2023 documented as of this encounter ED Notes * Minal Burch RN - 01/18/2022 9:20 PM CDT Patient discharged. Discharge instructions and patient educational material reviewed with patient; questions and concerns addressed; patient verbalizes understanding, using teach back. Patient was given 2 prescriptions. Patient was informed no drinking alcohol, driving or operating heavy machinery while taking narcotics or muscle relaxants. Patient discharged per ambulatory mode with self as responsible alliance party. * Minal Burch RN - 01/18/2022 8:06 PM CDT Jensen Mauricio to bedside for examination * Nayan Mauricio, PAC - 01/18/2022 8:06 PM CDT Chief Complaint Patient presents with ??? Shoulder Pain Maeve Ross is a 21 y.o. female who presents to the ED c/o right latearl neck and shoulder pain x1 hour after a fall in the shower. Patient states she slipped and struck the faucet. No head traumaor LOC. No midline neck pain. No neuro changes. Past Medical History Positives No date: Hypertension No current facility-administered medications for this encounter. Current Outpatient Medications Medication Sig Dispense Refill ??? acyclovir (ZOVIRAX) 400 MG Tablet Take 400 mg by mouth every 4 hours (while awake). ??? ferrous sulfate 325 (65 Fe) MG Tablet Take 1 Tab by mouth 2 times daily. (Patient not taking: Reported on 10/12/2021) 180 Tab 0 ??? metoprolol Succinate (TOPROL-XL) 25 MG TABLET SR 24 HR Take 25 mg by mouth daily. ??? traMADol (Ultram) 50 MG Tablet Take [...] Never Smoker ??? Smokeless tobacco: Never Used Vaping Use ??? Vaping Use: Never used Substance and Sexual Activity ??? Alcohol use: Yes Comment: occasionally ??? Drug use: No ??? Sexual activity: Not Currently Other Topics Concern ??? Not on file Social History Narrative ??? Not on file BP 145/89 Pulse 96 Temp (!) 96 ??F (35.6 ??C) (Tympanic) Resp 20 Ht 5' 5 (1.651 m) Wt 346 lb (156.9 kg) LMP 12/16/2019 SpO2 100% BMI 57.58 kg/m?? Review of Systems Constitutional: Negative for chills, fatigue and fever. HENT: Negative for congestion and sore throat. Respiratory: Negative for cough, chest tightness, shortness of breath and wheezing. Cardiovascular: Negative for chest pain and palpitations. Gastrointestinal: Negative for abdominal pain, constipation, diarrhea, nausea and vomiting. Genitourinary: Negative for dysuria, frequency and urgency. Musculoskeletal: Positive for arthralgias (right shoulder) and neck pain. Skin: Negative for color change and wound. Neurological: Negative for dizziness, weakness, light-headedness, numbness and headaches. All other systems reviewed and are negative. Physical Exam Vitals and nursing note reviewed. Constitutional: General: She is not in acute distress. Appearance: She is well-developed. She is morbidly obese. She is not diaphoretic. HENT: Head: Normocephalic and atraumatic. Eyes: Pupils: Pupils are equal, round, and reactive to light. Neck: Thyroid: No thyromegaly. Cardiovascular: Rate and Rhythm: Normal rate and regular rhythm. Heart sounds: Normal heart sounds. No murmur heard. Pulmonary: Effort: Pulmonary effort is normal. No respiratory distress. Breath sounds: Normal breath sounds. No wheezing, rhonchi or rales. Abdominal: General: Bowel sounds are normal. Palpations: Abdomen is soft. Musculoskeletal: Right shoulder: Tenderness present. No bony tenderness. Decreased range of motion. Cervical back: Neck supple. Tenderness present. No spasms or bony tenderness. Pain with movement and muscular tenderness present. No spinous process tenderness. Decreased range of motion. Thoracic back: Normal. Lumbar back: Normal. Skin: General: Skin is warm and dry. Coloration: Skin is not pale. Findings: No erythema or rash. Neurological: General: No focal deficit present. Mental Status: She is alert and oriented to person, place, and time. GCS: GCS eye subscore is 4. GCS verbal subscore is 5. GCS motor subscore is 6. Cranial Nerves: No cranial nerve deficit. Psychiatric: Behavior: Behavior normal. XR SHOULDER COMPLETE RIGHT Final Result IMPRESSION: No acute osseous abnormality. XR CERVICAL SPINE LIMITED 2 OR 3 VIEWS (3V OR LESS) Final Result IMPRESSION: 1. No definite evidence of acute fracture or subluxation involving the cervical spine. Procedures Imaging Results XR SHOULDER COMPLETE RIGHT (Final result) Result time 01/18/22 21:05:35 Final result by Carter Pollard DO (01/18/22 21:05:35) Impression: IMPRESSION: No acute osseous abnormality. Narrative: EXAM DESCRIPTION: XR SHOULDER COMPLETE RIGHT REASON FOR STUDY: pain without deformity after GLF in bathtub today TECHNIQUE: Internal rotation, external rotation, and Y views of the right shoulder were obtained. COMPARISON: None FINDINGS: There is no definite evidence of acute displaced fracture or dislocation involving the right shoulder. The right acromioclavicular joint is intact. The visualized soft tissues are grossly unremarkable. THIS IS AN ELECTRONICALLY VERIFIED FINAL REPORT 01/18/2022 9:02 PM - Electronically signed by Carter Pollard D.O. PS: PS Report ID: [id number] Reading Location: [id number] XR CERVICAL SPINE LIMITED 2 OR 3 VIEWS (3V OR LESS) (Final result) Result time 01/18/22 21:06:35 Final result by Carter Pollard DO (01/18/22 21:06:35) Impression: IMPRESSION: 1. No definite evidence of acute fracture or subluxation involving the cervical spine. Narrative: EXAM DESCRIPTION: XR CERVICAL SPINE LIMITED 2 OR 3 VIEWS (3V OR LESS) REASON FOR STUDY: right side neck pain after fall today TECHNIQUE: 3 radiographic views acquired of the cervical spine. COMPARISON: None FINDINGS: There is no definite evidence of acute fracture or subluxation involving the cervical spine. There is reversal the normal cervical lordotic curvature, which may be related to muscle spasms. There is minimal anterolisthesis C2 on C3, C3 on C4, and C4 on C5. The atlantoaxial interval is grossly well maintained. The visualized prevertebral soft tissues are grossly unremarkable. THIS IS AN ELECTRONICALLY VERIFIED FINAL REPORT 01/18/2022 9:03 PM - Electronically signed by Carter Pollard D.O. PS: PS Report ID: [id number] Reading Location: [place] [address] Labs Reviewed - No data to display MDM Coding Clinical Impression 1. Cervical strain, acute Reviewed imaging with patient. Flexeril and ultram started today. PCP follow up in 1-2 days. Returnto ED for worsening sxs The patient remained [...] the need for follow up. Cosigned by Fabian Avila MD at 02/18/2022 7:48 PM CDT * Minal Burch RN - 01/18/2022 8:00 PM CDT Patient is resting in room with call light at bedside. Patient informed about wait time and verbalizes understanding. Patient denies needs at this time and verbalizes understanding that RN will complete hourly rounding. * Page Khanna RN - 01/18/2022 7:42 PM CDT Patient slipped in bathtub, hitting shoulder and neck on bath faucet. Patient denies any loss of consciousness. 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 Office Visit [facility] - Pulmonology & Sleep Medicine [facility] [address] [place] [address] Philippe Granados MD [address] [place] [address] documented as of this encounter Procedures Procedure Name Priority Date/Time Associated Diagnosis Comments XR SHOULDER COMPLETE RIGHT STAT 01/18/2022 8:36 PM CDT XR CERVICAL SPINE LIMITED 2 OR 3 VIEWS (3V OR LESS) STAT 01/18/2022 8:33 PM CDT documented in this encounter Results * XR SHOULDER COMPLETE RIGHT (01/18/2022 8:36 PM CDT) Anatomical Region Laterality Modality UPPER EXTREMITY, shoulder Right Digita l Radiography 01/18/2022 9:02 PM CDT Impressions 01/18/2022 9:05 PM CDT IMPRESSION: ?? No acute osseous abnormality. Narrative 01/18/2022 9:05 PM CDT EXAM DESCRIPTION: ?? XR SHOULDER COMPLETE RIGHT REASON FOR STUDY: ?? pain without deformity after GLF in bathtub today TECHNIQUE: ?? Internal rotation, external rotation, and Y ??views of the right shoulder were obtained. COMPARISON: ?? None FINDINGS: There is no definite evidence of acute displaced fracture or dislocation involving the right shoulder. ??The right acromioclavicular joint is intact. ??The visualized soft tissues are grossly unremarkable. THIS IS AN ELECTRONICALLY VERIFIED FINAL REPORT 01/18/2022 9:02 PM - Electronically signed by ??Carter Pollard D.O. PS: PS D: ??01/18/2022 9:02 PM T: ??01/18/2022 9:02 PM Report ID: [id number] Reading Location: ??[id number] Procedure Note Carter Pollard DO - 01/18/2022 EXAM DESCRIPTION: XR SHOULDER COMPLETE RIGHT REASON FOR STUDY: pain without deformity after GLF in bathtub today TECHNIQUE: Internal rotation, external rotation, and Y views of the right shoulder were obtained. COMPARISON: None FINDINGS: There is no definite evidence of acute displaced fracture or dislocation involving the right shoulder. The right acromioclavicular joint is intact. The visualized soft tissues are grossly unremarkable. THIS IS AN ELECTRONICALLY VERIFIED FINAL REPORT 01/18/2022 9:02 PM - Electronically signed by Carter Pollard D.O. PS: PS Report ID: [id number] Reading Location: [id number] IMPRESSION: No acute osseous abnormality. Nayan Mauricio [facility] IMG DIAGNOSTIC ORDER SHAE Final Result * XR CERVICAL SPINE LIMITED 2 OR 3 VIEWS (3V OR LESS) (01/18/2022 8:33 PM CDT) Anatomical Region Laterality Modality Spine, C-spine N/A Digital Radiogra phy 01/18/2022 9:03 PM CDT Impressions 01/18/2022 9:06 PM CDT IMPRESSION: ?? 1. ?? No definite evidence of acute fracture or subluxation involving the cervical spine. Narrative 01/18/2022 9:06 PM CDT EXAM DESCRIPTION: ?XR CERVICAL SPINE LIMITED 2 OR 3 VIEWS (3V OR LESS) REASON FOR STUDY: ?? right side neck pain after fall today ?? TECHNIQUE: 3 ??radiographic views acquired of the cervical spine. COMPARISON: ?? None FINDINGS: There is no definite evidence of acute fracture or subluxation involving the cervical spine. ??There is reversal the normal cervical lordotic curvature, which may be related to muscle spasms. ??There is minimal anterolisthesis C2 on C3, C3 on C4, and C4 on C5. ??The atlantoaxial interval is grossly well maintained. ??The visualized prevertebral soft tissues are grossly unremarkable. THIS IS AN ELECTRONICALLY VERIFIED FINAL REPORT 01/18/2022 9:03 PM - Electronically signed by ??Carter Pollard D.O. PS: PS D: ??01/18/2022 9:03 PM T: ??01/18/2022 9:03 PM Report ID: [id number] Reading Location: ??[id number] Procedure Note Carter Pollard DO - 01/18/2022 EXAM DESCRIPTION: XR CERVICAL SPINE LIMITED 2 OR 3 VIEWS (3V OR LESS) REASON FOR STUDY: right side neck pain after fall today TECHNIQUE: 3 radiographic views acquired of the cervical spine. COMPARISON: None FINDINGS: There is no definite evidence of acute fracture or subluxation involving the cervical spine. There is reversal the normal cervical lordotic curvature, which may be related to muscle spasms. There is minimal anterolisthesis C2 on C3, C3 on C4, and C4 on C5. The atlantoaxial interval is grossly well maintained. The visualized prevertebral soft tissues are grossly unremarkable. THIS IS AN ELECTRONICALLY VERIFIED FINAL REPORT 01/18/2022 9:03 PM - Electronically signed by Carter Pollard D.O. PS: PS Report ID: [id number] Reading Location: [id number] IMPRESSION: 1. No definite evidence of acute fracture or subluxation involving the cervical spine. Nayan Mauricio PAC IMG DIAGNOSTIC ORDER SHAE Final Result documented in this encounter Visit Diagnoses Diagnosis Cervical strain, acute- Primary Sprain of neck documented in this encounter Care Teams Pharmaceutical Salesperson Relationship Specialty Start Date End Date Rox Bustillo, CLOCKMAKER, BEVERAGE STEWARD [address] [place] [address] PCP - General Advanced Practice Nurse 10/05/21 documented as of this encounter
--- OUTSIDE RECORDS SUMMARY | 2024-06-13 23:55 | XMS_ITS | Encounter Summary ---
Author Organization [facility] Address [address] [place] [address] Phone Care Team Providers Care Doctor Of Naturopathic Medicine Name Role Phone Iwona, Rox Horton APRN, CNP Primary Care Provider Philippe Granados MD Unavailable Reason for Visit * Reason Comments Nail Problem Encounter Details Date Type Department Care Team (Late st Contact Info) Description 08/08/2023 8:40 PM BATTERY CONTAINER TESTER - 08/08/2023 9:45 PM BATTERY CONTAINER TESTER Emergency [facility] Emergency [address] [place] [phone] Liya Hartman, PAC [address] [place] [address] Fingernail injury, right, initial encounter Discharge Disposition: Discharged to home or Selfcare [...] Sign Reading Time Taken Comments Blood Pressure 133/95 08/08/2023 8:38 PM BATTERY CONTAINER TESTER Pulse 102 08/08/2023 8:38 PM BATTERY CONTAINER TESTER Temperature 36.4 ??C (97.5 ??F) 08/08/2023 8:38 PM CS T Respiratory Rate 18 08/08/2023 8:38 PM BATTERY CONTAINER TESTER Oxygen Saturation 100% 08/08/2023 8:38 PM BATTERY CONTAINER TESTER Inhaled Oxygen Concentration - - Weight 122.5 kg (270 lb) 08/08/2023 8:38 PM BATTERY CONTAINER TESTER Height 165.1 cm (5' 5 ) 08/08/2023 8:38 PM BATTERY CONTAINER TESTER Body Mass Index 44.93 08/08/2023 8:38 PM BATTERY CONTAINER TESTER documented in this encounter Discharge Instructions * Discharge Instructions* Liya Hartman PAC - 08/08/2023 9:25 PM BATTERY CONTAINER TESTER Please clean your nail with soap and water daily and apply triple antibiotic ointment. You can soakyour finger in acetone to remove your fake nail if wanted. Otherwise, keep a bandage on your nail to protect from further injury. Return for reevaluation if you have any further concerns. ERY CONTAINER TESTER documented in this encounter Medications at Time of Discharge metoprolol Succinate (TOPROL-XL) 25 MG TABLET SR 24 HR Take 25 mg by mouth daily. Phentermine HCl 37.5 MG Tablet Take 37.5 mg by mouth every morning (before breakfast). triamterene-hydr ochlorothiazide (MAXZIDE) 37.5-25 MG Tablet Take 1 Tablet by mouth daily. sulfamethoxazole -trimethoprim DS (Bactrim DS) 800-160 MG TabletIndication s:fingernail injury Take 1 Tablet by mouth 2 times daily for 10 days. Indications: fingernail injury 20 Tablet 08/08/2023 documented as of this encounter ED Notes * Liya Hartman PAC - 08/08/2023 9:25 PM CST Chief Complaint Patient presents with Nail Problem HPI Maeve Ross is a 23 y.o. female who presents from home due to a R 5th digit fingernail injury. She states that she was giving her dog a bath and the her fake fingernail got stuck and started topull her real nail off. She states she is experiencing pain. There is no active bleeding on arrivalto the ED. PMH includes HTN. Her provider is Rox Bustillo. No current facility-administered medications for this encounter. Current Outpatient Medications Medication Sig Dispense Refill metoprolol Succinate (TOPROL-XL) 25 MG TABLET SR 24 HR Take 25 mg by mouth daily. Phentermine HCl 37.5 MG Tablet Take 37.5 mg by mouth every morning (before breakfast). sulfamethoxazole-trimethoprim DS (Bactrim DS) 800-160 MG Tablet Take 1 Tablet by mouth 2 times daily for 10 days. Indications: fingernail injury 20 Tablet 0 triamterene-hydrochlorothiazide (MAXZIDE) 37.5-25 MG Tablet Take 1 Tablet by mouth daily. Allergies Allergen Reactions Penicillins Swelling Past Medical History Positives Diagnosis Date Hypertension Past Surgical History: Procedure Laterality Date CHOLECYSTECTOMY LAP GASTRIC RESECTION OVARIAN CYST REMOVAL TYMPANOSTOMY TUBE PLACEMENT Social History Socioeconomic History Marital status: Single Spouse name: Not on file Number of children: Not on file Years of education: Not on file Highest education level: Not on file Occupational History Not on file Tobacco Use Smoking status: Never Smokeless tobacco: Never Vaping Use Vaping Use: Never used Substance and Sexual Activity Alcohol use: Yes Comment: occasionally Drug use: No Sexual activity: Not Currently Other Topics Concern Not on file Social History Narrative Not on file Social Determinants of Health Financial Resource Needs: Not on file Food Insecurity Needs: Not on file Transportation Needs: Not on file Physical Activity: Not on file Stress: Not on file Social Integration: Not on file Intimate Partner Violence: Not on file Housing Stability: Not on file BP (!) 133/95 Pulse 102 Temp 97.5 ??F (36.4 ??C) (Tympanic) Resp 18 Ht 5' 5 (1.651 m) Wt270 lb (122.5 kg) LMP (LMP Unknown) SpO2 100% BMI 44.93 kg/m?? Review of Systems Constitutional: Negative for chills and fever. HENT: Negative for congestion, ear pain, rhinorrhea and sore throat. Eyes: Negative for discharge. Respiratory: Negative for cough, chest tightness, shortness of breath and wheezing. Cardiovascular: Negative for chest pain and palpitations. Gastrointestinal: Negative for abdominal pain, diarrhea, nausea and vomiting. Genitourinary: Negative for difficulty urinating and menstrual problem. Musculoskeletal: Negative for arthralgias and myalgias. Skin: Negative for rash and wound. R 5th digit injury Neurological: Negative for dizziness, syncope and headaches. [...] Skin: General: Skin is warm and dry. Comments: R 5th digit with fake nail intact and medial portion of real nail slightly avulsed. No active bleeding. Neurological: Mental Status: She is alert and oriented to person, place, and time. Cranial Nerves: No cranial nerve deficit. Procedures No results found for this or any previous visit (from the past 24 hour(s)). Imaging Results None Medical Decision Making Clinical Impression 1. Fingernail injury, right, initial encounter Disposition: Discharge Discussed with patient wound care instructions and discussed soaking finger in acetone once healed to remove acrylic nail. Patient was started on bactrim. Advised keeping finger bandaged to avoid further injury. Patient expressed understanding and agreement to the tx plan. Cosigned by Fabian Avila MD at 08/09/2023 12:58 AM BATTERY CONTAINER TESTER ERY CONTAINER TESTER ERY CONTAINER TESTER * Melissa Atkinson RN - 08/08/2023 8:39 PM CST Patient presents to ED triage ambulatory with reports of nail issue on right pinkie finger. Patientreports that she was giving the dog a bath ripped her fake fingernail off but it is still attached to her real nail. Patient reports not being able to get the nail to release ERY CONTAINER TESTER documented in this encounter Miscellaneous Notes * PatientPass Patient Instructions - Minnie, Liya Lynn, MIGUE - 08/08/2023 9:24 PM CST Images from the original note were not included. Patient Education Table of Contents Nail Bed Injury To view videos and all your education online visit, [email or web address] or scan this QR code with your smartphone. Access to this content will in one year. Nail Bed Injury The nail bed is the soft tissue under a fingernail or toenail that lets the nail grow. The nail bedcan be injured in many ways. You may: Have bruising or bleeding under the nail. Have cuts in the nail or nail bed. Lose all or part of the nail. After your nail is hurt or torn off, it can take many months to grow again. The nail may not grow back normally. What are the causes? This condition is usually caused when the nail on a fingertip or toe gets crushed, pinched, cut, ortorn. These injuries might happen when a finger or toe gets: Caught in a door. Hit by a hammer. Damaged in accidents while you are using power tools or machinery. What are the signs or symptoms? Symptoms vary depending on the type of injury. Symptoms may include: Pain in the injured area. Bleeding. Swelling. A change in color of the area. Collection of blood under the nail (hematoma). Damage to the nail, such as: ? A nail that is an unusual shape. ? A split nail. ? A loose nail that is not stuck to the nail bed. ? Loss of all or part of the nail. In some cases, a nail bed injury happens along with another injury, such as a break (fracture)of the bone at the tip of the finger or toe. How is this treated? Treatment may depend on the type of injury. Some injuries may not need any treatment other than keeping the area clean. Treatment may include: Draining blood from under the nail. This can be done by making a small hole in the nail. Removing all or part of your nail. This might be done to stitch (suture) any cut in the nail bed. Stitching a torn-off nail back in place. Putting bandages (dressings) or splints on the area. Taking medicines, such as: ? Antibiotics to help prevent infection. ? Pain medicine. Having a tetanus shot. This may be needed if you have not had a tetanus shot in the last 10 years. For some injuries, your doctor may tell you to see a hand or marketing services specialist. Follow these instructions at home: Managing pain, stiffness, and swelling Raise (elevate) the injured area above the level of your heart while you are sitting or lying down. Keep your injury protected with dressings or splints as told by your doctor. For an injured toenail: ? Try not to walk on the affected foot. ? Wear an open-toed shoe when you walk. ? Try not to let your leg hang down (dangle) when you are sitting or lying down. Wound care Follow instructions from your doctor about how to take care of your wound. Make sure you: Wash your hands with soap and water for at least 20 seconds before and after you change your bandage. If you cannot use soap and water, use hand breakfast attendant. Change your bandage. Leave sutures or skin glue in place for at least 2 weeks. Leave tape strips alone unless you are told to take them off. You may trim the edges of the tape strips if they curl up. Check the injured area every day for signs of infection. Check for: ? More redness, swelling, or pain. ? More fluid or blood. ? Warmth. ? Pus or a bad smell. Keep the injured area clean. Keep dressings clean and dry. General instructions Take dvqe-plu-lblwocw and prescription medicines only as told by your doctor. If you were prescribed antibiotics, take them as told by your doctor. Do not stop taking them even if you start to feel better. Contact a doctor if: Medicine does not help your pain. You have signs of infection around your injured nail. You have a fever and your symptoms get worse. You lose feeling (have numbness) in your finger or toe. Your finger or toe turns blue. This information is not intended to replace advice given to you by your health care provider. Make sure you discuss any questions you have with your health care provider. Document Released: 2010-05-09 Document Updated: 2023-02-07 Document Reviewed: 2023-02-07 Elsevier Patient Education ? 2023 [employer] ERY CONTAINER TESTER documented in this encounter Plan of Treatment Upcoming Encounters Date Type Department Care Team (Late st Contact Info) Description 08/07/2024 10:00 AM BATTERY CONTAINER TESTER Office Visit [facility] - Pulmonology & Sleep Medicine - [place] [address] [place] [phone] Philippe Granados MD [address] [place] [address] documented as of this encounter Visit Diagnoses Diagnosis Fingernail injury, right, initial encounter- Primary documented in this encounter Administered Medications Inactive Administered Medications - up to 3 most recent administrations Medication Order MAR Action Action Date Dose Rate Site Lizk-RCYEPFQqrxf-Biwzxlrrjk 4-0.05-0.5 % gel 3 mL 3 mL, Topical, ONCE, 1 dose, On Sun08/08/23 at 2200 Given 08/08/2023 9:36 PM BATTERY CONTAINER TESTER 3 mL documented in this encounter Active and Recently Administered Medications Times are shown in BATTERY CONTAINER TESTER. Scheduled Medication Order 08/06/2023 08/07/2023 08/08/2023 Batv-FNLVGUFqelb-[id number] 4-0.05-0.5 % gel 3 mL (COMPLETED) 3 mL, Topical, ONCE, 1 dose, On Sun08/08/23 at 2200 2136 (Given - Provid er: Alan Chris RN) documented in this encounter Care Teams Doctor Of Naturopathic Medicine Relationship Specialty Start Date End Date Rox Bustillo APRN, RUBBER CHEMIST [address] [place] [address] PCP - General Advanced Practice Nurse 10/05/21 Philippe Granados MD [address] [place] [address] Consulting Physician Pulmonary Disease 03/30/22 documented as of this encounter
--- OUTSIDE RECORDS SUMMARY | 2024-06-13 23:55 | XMS_ITS | Encounter Summary ---
Author Organization [facility] Address [address] [facility] [place] [address] Phone Care Team Providers Care Facer Operator Name Role Phone Iwona, Rox Horton APRN, CNP Primary Care Provider Philippe Granados MD Unavailable Reason for Visit * Reason Comments Sleep Apnea Restless Leg Encounter Details Date Type Department Care Team (Late st Contact Info) Description 02/07/2024 10:15 AM CDT Office Visit [facility] - Pulmonology & Sleep Medicine [facility] [address] [place] [address] Philippe Granados MD [address] [place] [address] LEDA (obstructive sleep apnea) (Primary Dx); Essential (primary) hypertension; Morbid obesity (HCC); Restless legs syndrome (RLS) Discharge Disposition: Discharged to home or Selfcare [...] Mass Index 43.1 02/07/2024 10:21 AM CDT documented in this encounter Progress Notes * Philippe Granados MD - 02/07/2024 10:15 AM CDT Images from the original note were not included. Progress Note Subjective: HPI: Maeve Ross is a 24 y.o. 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 rate 14, height 5' 5 (1.651 m), weight 259 lb (117.5 kg), SpO2 99%. Gen/Constitutional: No distress HEENT: Normocephalic, atraumatic. PERRLA, No oropharyngeal [...] 1. LEDA (obstructive sleep apnea) G47.33 2. Essential (primary) hypertension I10 3. Morbid obesity (HCC) E66.01 4. Restless legs syndrome (RLS) G25.81 Plan: Continue CPAP Discussed sleep hygiene Continue antihypertensives Counseled her on heart healthy diet and exercise Return in about 6 months (around 08/06/2024). Documentation for this visit on February 06 was completed using a template. I have seen and examined the patient. Everything documented was personally performed at this visit with the necessary additions, deletions and changes made as appropriate. Philippe Granados MD 02/07/2024 10:39 AM CDT documented in this encounter Plan of Treatment Upcoming Encounters Date Type Department Care Team (Late st Contact Info) Description 08/07/2024 10:00 AM OVERHAULER BUS TRUCK Office Visit [facility] - Pulmonology & Sleep Medicine - [place] [address] [place] [phone] Philippe Granados MD [address] [place] [phone] documented as of this encounter Visit Diagnoses Diagnosis LEDA (obstructive sleep apnea)- Primary Obstructive sleep apnea (adult) (pediatric) Essential (primary) hypertension Unspecified essential hypertension Morbid obesity (HCC) Morbid obesity Restless legs syndrome (RLS) documented in this encounter Care Teams Facer Operator Relationship Specialty Start Date End Date Rox Bustillo APRN, CNP [address] [place] [address] PCP - General Advanced Practice Nurse 10/05/21 Philippe Granados MD [address] [place] [address] Consulting Physician Pulmonary Disease 03/30/22 documented as of this encounter
--- OUTSIDE RECORDS SUMMARY | 2024-06-13 23:55 | XMS_ITS | Encounter Summary ---
Author Organization [facility] Address [address] [facility] [place] [address] Phone Care Team Providers Care Collections Officer Name Role Phone Iwona, Rox Horton APRN, CNP Primary Care Provider Philippe Granados MD Unavailable Reason for Visit * Reason Comments Sleep Apnea Encounter Details Date Type Department Care Team (Late st Contact Info) Description 03/30/2022 10:30 AM CDT Office Visit [facility] - Pulmonology & Sleep Medicine [facility] [address] [place] [phone] Philippe Granados MD [address] [place] [phone] LEDA (obstructive sleep apnea) (Primary Dx); Essential [...] In the last 10 days, have nimisha u been in contact with someone who was confirmed or suspected to have Coronavirus/COVID-19? No / Unsure 03/30/2022 9:51 AM CDT documented as of this encounter Last Filed Vital Signs Vital Sign Reading Time Taken Comments Blood Pressure 120/70 03/30/2022 10:04 AM CDT Pulse 87 03/30/2022 10:04 AM CDT Temperature 36.5 ??C (97.7 ??F) 03/30/2022 1 0:04 AM CDT Respiratory Rate 14 03/30/2022 10:0 4 AM CDT Oxygen Saturation 97% 03/30/2022 10: 04 AM CDT Inhaled Oxygen Concentration - - Weight 160.7 kg (354 lb 4.8 oz) 022 10:04 AM CDT Height 165.1 cm (5' 5 ) 03/30/2022 10:0 4 AM CDT Body Mass Index 58.96 03/30/2022 10:04 AM CDT documented in this encounter Progress Notes * Philippe Granados MD - 03/30/2022 10:30 AM CDT Images from the original note were not included. Progress Note Subjective: HPI: Maeve Ross is a 22 y.o. 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 acyclovir (ZOVIRAX) 400 MG Tablet Take 400 mg by mouth every 4 hours (while awake). ??? ferrous sulfate 325 (65 Fe) MG Tablet Take 1 Tab by mouth 2 times daily. (Patient not taking: No sig reported) 180 Tab 0 ??? metoprolol Succinate (TOPROL-XL) [...] ??? Penicillins Swelling Objective: Vitals: Blood pressure 120/70, pulse 87, temperature 97.7 ??F (36.5 ??C), resp. rate 14, height 5' 5 (1.651 m), weight 354 lb 4.8 oz (160.7 kg), last menstrual period 12/16/2019, SpO2 97 %. Gen/Constitutional: Obese no distress HEENT: Normocephalic, [...] legs syndrome (RLS) G25.81 Plan: Continue CPAP Sleep hygiene Start ropinirole Continue antihypertensives Discuss results of sleep study with her Return in about 6 months (around 09/28/2022). Documentation for this visit on March 30 was completed using a template. I have seen and examinedthe patient. Everything documented was personally performed at this visit with the necessary additions, deletions and changes made as appropriate. Philippe Granados MD 03/30/2022 10:42 AM CDT documented in this encounter Plan of Treatment Upcoming Encounters Date Type Department Care Team (Late st Contact Info) Description 08/07/2024 10:00 AM KNOBBER Office Visit [facility] - Pulmonology & Sleep Medicine [facility] [address] [place] [address] Philippe Granados MD [address] [place] [address] documented as of this encounter Visit Diagnoses Diagnosis LEDA (obstructive sleep apnea)- Primary Obstructive sleep apnea (adult) (pediatric) Essential (primary) hypertension Unspecified essential hypertension Morbid obesity (HCC) Morbid obesity Restless legs syndrome (RLS) documented in this encounter Care Teams Collections Officer Relationship Specialty Start Date End Date Rox Bustillo APRN, MERCHANDISE WORKER [address] [place] [address] PCP - General Advanced Practice Nurse 10/05/21 Philippe Granados MD [address] [facility] [place] [address] Consulting Physician Pulmonary Disease 03/30/22 documented as of this encounter
--- OUTSIDE RECORDS SUMMARY | 2024-06-13 23:56 | XMS_ITS | Encounter Summary ---
Author Organization [facility] Healthcare Address [address] [place] [address] Care Team Providers Care Supervisor Paper Machine Name Role Phone No, Physician Unavailable Rox Bustillo NP Primary Care Provider + [phone] Reason for Visit * Reason Onset Date Comments Referral Request 11/12/2023 Encounter Details Date Type Department Care Team (Late st Contact Info) Description 11/12/2023 Telephone [facility] Medical Group Family Medicine at [address] [place] [address] Gerson Pollard MD [address] [place] [address] [address] [place] [address] Referral Request Social History Tobacco Use Types Packs/Day Years Used Date Smoking Tobacco: Never Passive Smoke Exposure: Past Smokeless Tobacco: Never Alcohol Use Standard Drinks/Week Comments Yes 0 (1 standard drink = 0.6 oz pur e alcohol) occasional Humiliation, Afraid, Rape, and Kick questionnair e Answer Date Recorded Within the last year, have y ou been afraid of your partner or ex-partner? No 01/18/2023 Within the last year, have y ou been humiliated or emotionally abused in other ways by your partner or ex-partner? No Within the last year, have y ou been kicked, hit, slapped, or otherwise physically hurt by your partner or ex-partner? No 01/18/2023 Within the last year, have y ou been raped or forced to have any kind of sexual activity by your partner or ex-partner? No 01/18/2023 Social Connection and Isolation Panel [NHANES] A nswer Date Recorded In a typical week, how many times do you talk on the phone with family, friends, or neighbors? Twice a week 01/18/2023 How often do you get together with friends or re latives? Once a week 01/18/2023 How often do you attend voodoo or buddhist serv ices? Never 01/18/2023 Do you belong to any clubs o r organizations such as voodoo groups, unions, fraternal or athletic groups, or school groups? No 01/18/2023 How often do you attend meet ings of the clubs or organizations you belong to? Never 01/18/2023 Are you , , di vorced, , never , or living with a partner? Never 01/18/2023 AUDIT-C Answer Date Recorded Q1: How often do you have a drink containing alcohol? Never 10/03/2023 Q2: How many drinks containi ng alcohol do you have on a typical day when you are drinking? Patient does not drink Q3: How often do you have si x or more drinks on one occasion? Never 10/03/2023 Overall Financial Resource Strain (CARDIA) Answe r Date Recorded How hard is it for you to pa y for the very basics like food, housing, medical care, and heating? Not hard at all 01/18/2023 PHQ-2 Answer Date Recorded PHQ-2 Total Score (If total score is 3 or more points, staff should administer the PHQ-9) 0 01/18/2023 [facility] Occupational Stress Questionnaire Answer Date Recorded Do you feel stress - tense, restless, nervous, or anxious, or unable to sleep at night because your mind is troubled all the time - these days? To some extent 01/18/2023 Exercise Vital Sign Answer Date Recorde d On average, how many days pe r week do you engage in moderate to strenuous exercise (like a brisk walk)? 7 days 01/18/2023 On average, how many minutes do you engage in exercise at this level? 30 min 01/18/2023 Hunger Vital Sign Answer Date Recorded Within the past 12 months, y ou worried that your food would run out before you got the money to buy more. Never true 01/19/20 23 Within the past 12 months, t he food you bought just didn't last and you didn't have money to get more. Never true 01/18/2023 PRAPARE - Transportation Answer Date Re corded In the past 12 months, has l ack of transportation kept you from medical appointments or from getting medications? No 01/02 In the past 12 months, has l ack of transportation kept you from meetings, work, or from getting things needed for daily living? No 01/18/2023 Housing Stability Vital Sign Answer Floyd e Recorded In the last 12 months, was t here a time when you were not able to pay the mortgage or rent on time? No 01/18/2023 In the last 12 months, how many places have you lived? 1 01/18/2023 In the last 12 months, was t here a time when you did not have a steady place to sleep or slept in a usp (including now)? No 01/18/2023 Personal Safety Answer Date Recorded Have you ever been in or are you currently in a harmful physical or emotional relationship or is someone making you feel afraid or unsafe? 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 Patient is aware. * Telephone Encounter - Sharon Khanna - 11/12/2023 10:26 AM CDT Medical Question/Miscellaneous Caller???s Concern: Please resend Ambulatory referral to Bariatric Surgery they have not received it. Does message need to be routed? Yes-Action Needed documented in this encounter Plan of Treatment Not on file documented as of this encounter Visit Diagnoses Not on filedocumented in this encounter Care Teams Supervisor Paper Machine Relationship Specialty Start Date End Date Rox Bustillo NP [address] [address] PCP - General Family Medicine 04/21/21 No, Physician 01/10/17 documented as of this encounter
--- OUTSIDE RECORDS SUMMARY | 2024-06-13 23:56 | XMS_ITS | Encounter Summary ---
Author Organization [facility] Healthcare Address [address] [place] [address] Care Team Providers Care Nurse Practitioner Per Diem Name Role Phone No, Physician Unavailable Rox Bustillo NP Primary Care Provider + [phone] Reason for Visit * Reason Comments Knee Pain Encounter Details Date Type Department Care Team ([facility] st Contact Info) Description 04/13/2024 12:38 PM BALANCE TRUING INSPECTOR - 04/13/2024 2:15 PM [facility] Emergency [facility] Emergency Department [address] [place] [address] Acute pain of right knee (Primary Dx) Discharge Disposition: Discharge to home or self care Social History Tobacco Use Types Packs/Day Years [...] week 01/18/2023 How often do you attend buddhist or taoist serv ices? Never 01/18/2023 Do you belong to any clubs o r organizations such as buddhist groups, unions, fraternal or athletic groups, or [...] staff should administer the PHQ-9) 0 01/18/2023 [facility] - Occupational Stress Questionnaire Answer Date Recorded [...] place to sleep or slept in a assisted (including now)? No 01/18/2023 Personal Safety Answer Date Recorded Have you ever been in or are you currently in a harmful physical or emotional relationship or is someone making you feel afraid or unsafe? Denies 04/13/2024 Comments No Sex and Gender Information Value Date Recorded Sex Assigned at Not on file Legal Sex Female 8:56 PM BALANCE TRUING INSPECTOR Gender Identity Not on file Sexual Orientation Not on file documented as of this encounter Last Filed Vital Signs Vital Sign Reading Time Taken Comments Blood Pressure 129/82 04/13/2024 12:36 PM BALANCE TRUING INSPECTOR Pulse 102 04/13/2024 12:36 PM BALANCE TRUING INSPECTOR Temperature 36.7 ??C (98.1 ??F) 04/13/2024 12:[address] Respiratory Rate 17 04/13/2024 12:36 PM BALANCE TRUING INSPECTOR Oxygen Saturation 98% 04/13/2024 12:36 PM BALANCE TRUING INSPECTOR Inhaled Oxygen Concentration - - Weight 113.4 kg (250 lb) 04/13/2024 12:36 PM BALANCE TRUING INSPECTOR Height 165.1 cm (5' 5 ) 04/13/2024 12:36 PM BALANCE TRUING INSPECTOR Body Mass Index 41.6 04/13/2024 12:36 PM BALANCE TRUING INSPECTOR documented in this encounter Discharge Instructions * Discharge Instructions* Adelaide Whitehead PA - 04/13/2024 2:11 PM BALANCE TRUING INSPECTOR You were seen today for evaluation of right knee pain after a fall. Your physical exam was reassuring, your x-ray was negative. I am going to start you on a pain control regimen, should your pain still be present after 7 days despite the medications, please follow up with the Orthopedic source listed below for re-evaluation. To help with pain, please start: Naproxen twice daily with breakfast and dinner Tylenol 500 mg in between meals Robaxin, a muscle relaxer for breakthrough pain I have also sent you in Zofran to help with any nausea. Please take as needed It was a pleasure taking care of you today. We thank you for entrusting our team with your healthcare needs NCE TRUING INSPECTOR documented in this encounter Medications at Time of Discharge medroxyPROGESTERone (PROVERA) 10 mg tablet 07/05/2022 methocarbamoL (ROBAXIN) 500 mg tablet Take 1 tablet (500 mg total) by mouth 2 (two) times a day 20 tablet 04/13/2024 metoprolol XL (TOPROL-XL) 25 mg extended release tablet Take 1 tablet (25 mg total) by mouth daily 05/15/2022 multivit-min/iron/fo lic acid/K (BARIATRIC MULTIVITAMINS ORAL) Take by mouth naproxen (NAPROSYN) 500 mg tablet Take 1 tablet (500 mg total) by mouth 2 (two) times a day with meals 30 tablet 04/13/2024 ondansetron (ZOFRAN) 4 mg tablet TAKE 1 TABLET(4 MG) BY MOUTH EVERY 6 HOURS FOR UP TO 14 DAYS NEEDED FOR NAUSEA OR VOMITING 30 tablet 04/07/2024 ondansetron ODT (ZOFRAN-ODT) 4 mg disintegrating tablet Take 1 tablet (4 mg total) by mouth every 8 (eight) hours as needed for nausea or vomiting 20 tablet 04/13/2024 phentermine (ADIPEX-P) 37.5 mg tabletIndications:Ab normal weight gain,Class 3 severe obesity due to excess calories without serious comorbidity with body mass index (BMI) of 40.0 to 44.9 in adult (HCC) TAKE 1 TABLET(37.5 MG) BY MOUTH DAILY BEFORE BREAKFAST 90 tablet 01/07/2024 triamterene-hydroCHL OROthiazide 37.5-25 mg per tablet TK 1 T PO QD 01/14/2020 documented as of this encounter Ordered Prescriptions Prescription Sig Dispense Quantity Refills Last Filled Start Date End Date ondansetron ODT (ZOFRAN-ODT) 4 mg disintegrating tablet Take 1 tablet (4 mg total) by mouth every 8 (eight) hours as needed for nausea or vomiting 20 tablet 04/13/2024 methocarbamoL (ROBAXIN) 500 mg tablet Take 1 tablet (500 mg total) by mouth 2 (two) times a day 20 tablet 04/13/2024 naproxen (NAPROSYN) 500 mg tablet Take 1 tablet (500 mg total) by mouth 2 (two) times a day with meals 30 tablet 04/13/2024 documented in this encounter Discharge Disposition Disposition Code Departure Means Destination Comment s Discharge to home or self care documented in this encounter ED Notes * Adelaide Whitehead PA - 04/13/2024 2:15 PM CST HPI Chief Complaint Patient presents with Knee Pain 24-year-old A&O x4 female patient presents for evaluation of right knee pain. She states just prior to arrival she was ambulating when she tripped, fell and landed on her right knee. Did not hit her head, no LOC. No previous injury to this knee Patient History: Patient Active Problem List Diagnosis Date Noted Abnormal weight gain 10/03/2023 S/P gastric sleeve procedure 07/13/2023 History of bariatric surgery 04/17/2023 Morbid obesity (HCC) 12/15/2022 Heartburn 10/24/2022 Restless legs syndrome (RLS) 03/30/2022 LEDA (obstructive sleep apnea) 10/20/2021 Anxiety 10/03/2021 Chest discomfort 10/03/2021 Sleep pattern disturbance 10/03/2021 Vaginal discharge 09/07/2021 Achilles tendinitis of right lower extremity 03/09/2020 Edema of lower extremity 01/14/2020 Vitamin D deficiency 07/20/2019 Class 3 severe obesity due to excess calories without serious comorbidity with body mass index (BMI) of 40.0 to 44.9 in adult ([facility]) 04/13/2019 Essential (primary) hypertension 04/10/2019 BMI 45.0-49.9, adult ([facility]) 05/17/2017 Epigastric pain 05/17/2017 Past Medical History: Diagnosis Date Anemia Biliary dyskinesia 05/17/2017 Hypertension Obesity Ovarian cyst Sleep apnea Past Surgical History: Procedure Laterality Date BARIATRIC SURGERY 01/17/2023 Sleeve CHOLECYSTECTOMY OTHER SURGICAL HISTORY myringotomy OTHER SURGICAL HISTORY exploratory laparoscopic cyst on ovary UPPER GASTROINTESTINAL ENDOSCOPY 11/14/2022 Family History Problem Relation Age of Onset Anemia Mother Cancer Father Bladder Cancer Father Heart disease Father Stroke Father Diabetes Father Multiple sclerosis Father's Sister Hearing loss Maternal Grandfather Stroke Paternal Grandmother Diabetes Paternal Grandmother Hearing loss Paternal Grandfather Diabetes Paternal Grandfather Social History Tobacco Use Smoking status: Never Passive exposure: Past Smokeless tobacco: Never Vaping Use Vaping status: Never Used Substance and Sexual Activity Alcohol use: Yes Comment: occasional Drug use: No Sexual activity: Defer Partners: Male Social History Social History Narrative Not on file Review of Systems Review of Systems Musculoskeletal: Positive for arthralgias. All other systems reviewed and are negative. Physical Exam ED Triage Vitals [04/13/24 1236] Temp Pulse Resp BP SpO2 36.7 ??C (98.1 ??F) 102 17 129/82 98 % Temp src Heart Rate Source Patient Position BP Location FiO2 (%) Temporal -- -- -- -- Height Height Method Weight Weight Method 1.651 m (5' 5 ) Stated 113.4 kg (250 lb) Stated Physical Exam Vitals and nursing note reviewed. Constitutional: General: She is not in acute distress. Appearance: Normal appearance. She is not ill-appearing, toxic-appearing or diaphoretic. Eyes: Extraocular Movements: Extraocular movements intact. Pupils: Pupils are equal, round, and reactive to light. Cardiovascular: Rate and Rhythm: Normal rate. Pulses: Normal pulses. Pulmonary: Effort: Pulmonary effort is normal. Breath sounds: Normal breath sounds. Abdominal: Tenderness: There is no abdominal tenderness. Musculoskeletal: General: No swelling or tenderness. Normal range of motion. Cervical back: Normal range of motion. Skin: General: Skin is warm and dry. Capillary Refill: Capillary refill takes less than 2 seconds. Neurological: General: No focal deficit present. Mental Status: She is alert and oriented to person, place, and time. Cranial Nerves: No cranial nerve deficit. Sensory: No sensory deficit. Motor: No weakness. Coordination: Coordination normal. Gait: Gait normal. Deep Tendon Reflexes: Reflexes normal. MDM Medical Decision Making 24-year-old A&O x4 female patient presents for evaluation of right knee pain. She states just prior to arrival she was ambulating when she tripped down 4 steps and landed onto her right knee. Didnot hit her head, no LOC. No anticoagulation use. Denies headache, vision change, dizziness, dyspnea, chest pain, nausea/vomiting/diarrhea. No previous injury to this knee. Has been able to bear weight since. Physical exam shows well-appearing female patient. Lungs clear all augustin. Heart tones normal. Minor abrasion noted to right patella, otherwise no other issues. Tenderness to patella. No swelling. Nobruising. Full range of motion. Right foot neurovascularly intact Differential: Abrasion, hematoma, fracture, sprain Plan: Imaging, pain control Amount and/or Complexity of Data Reviewed Radiology: ordered. Decision-making details documented in ED Course. Risk Prescription drug management. ED Course as of 04/13/24 1528 Time: 04/13 1405 Value: XR Knee Right 3 Views Comment: Negative By: Adelaide Whitehead PA Time: 04/13 1410 Comment: Updated workup findings. She was comfortable with discharge at this time. Follow up resources given. Return precautions given. All questions answered By: Adelaide Whitehead PA Final diagnoses: Acute pain of right knee Adelaide Whitehead PA 04/13/24 1528 Cosigned by Diallo Jc MD at 04/13/2024 9:27 PM BALANCE TRUING INSPECTOR NCE TRUING INSPECTOR NCE TRUING INSPECTOR Associated attestation - Diallo Jc MD - 04/13/2024 9:27 PM BALANCE TRUING INSPECTOR Based on the medical record the care appears appropriate. * Salina Archibald RN - 04/13/2024 12:35 PM CST Patient to ED c/o right knee pain after she fell down 4 stairs. Denies other injuries. NCE TRUING INSPECTOR documented in this encounter Plan of Treatment Not on file documented as of this encounter Procedures Procedure Name Priority Date/Time Associated Diagnosis Comments XR KNEE RIGHT 3 VIEWS ED 04/13/2024 1:10 PM BALANCE TRUING INSPECTOR documented in this encounter Results * XR Knee Right 3 Views (04/13/2024 1:10 PM BALANCE TRUING INSPECTOR) Anatomical Region Laterality Modality Lower Extremities, Knee Right Computed Radiography 04/13/2024 1:12 PM BALANCE TRUING INSPECTOR Narrative 04/13/2024 1:13 PM BALANCE TRUING INSPECTOR EXAM DESCRIPTION: XR KNEE RIGHT 3 VIEWS REASON FOR STUDY: pain ?? c/o right knee pain after she fell down 4 stairs ? TECHNIQUE: There are 3 ??radiographic view(s) of the ??right knee . COMPARISON: Prior exam 12/05/2017 FINDINGS: Normal mineralization. ??No acute fracture or dislocation. ??Joint spaces are intact. ??No effusion. ??Soft tissues are unremarkable. IMPRESSION: No acute osseous abnormality. ??No effusion. THIS IS AN ELECTRONICALLY VERIFIED FINAL REPORT 04/13/2024 1:13 PM - Electronically signed by ??Rafael Collins M.D. MJ: JS D: ??04/13/2024 1:13 PM T: ??04/13/2024 1:13 PM Report ID: [id number] Reading Location: ??[id number] Procedure Note Rafael Collins MD - 04/13/2024 EXAM DESCRIPTION: XR KNEE RIGHT 3 VIEWS REASON FOR STUDY: pain c/o right knee pain after she fell down 4 stairs TECHNIQUE: There are 3 radiographic view(s) of the right knee . COMPARISON: Prior exam 12/05/2017 FINDINGS: Normal mineralization. No acute fracture or dislocation. Joint spacesare intact. No effusion. Soft tissues are unremarkable. IMPRESSION: No acute osseous abnormality. No effusion. THIS IS AN ELECTRONICALLY VERIFIED FINAL REPORT 04/13/2024 1:13 PM - Electronically signed by Rafael Collins M.D. MJ: JS Report ID: [id number] Reading Location: [place] [address] Adelaide ZIMMERMAN IMG XR PROCEDURES Final Result documented in this encounter Visit Diagnoses Diagnosis Acute pain of right knee- Primary documented in this encounter Administered Medications Inactive Administered Medications - up to 3 most recent administrations Medication Order MAR Action Action Date Dose Rate Site HYDROcodone-acetaminophen (NORCO) 5-325 mg per tablet 1 tablet 1 tablet, oral, Once, On 04/13/24 at 1313, For 1 dose, Indications: PainIndications:Pain Given 04/13/2024 1:16 PM BALANCE TRUING INSPECTOR 1 tablet documented in this encounter Active and Recently Administered Medications Times are shown in BALANCE TRUING INSPECTOR. Scheduled Medication Order 04/11/2024 04/12/2024 04/13/2024 HYDROcodone-acetaminophen (NORCO) 5-325 mg per tablet 1 tablet (COMPLETED) 1 tablet, oral, Once, On 04/13/24 at 1313, For 1 dose, Indications: Pain 1316 (Given - Provid er: Leslye Alejo RN) documented in this encounter Orders Medications Ordered That Ed ht Not Have Been Administered Count Last Ordered Date First Ordered Date HYDROcodone-acetaminophen (N ORCO) 5-325 mg per tablet 1 tablet 1 04/13/2024 documented in this encounter Care Teams Nurse Practitioner Per Diem Relationship Specialty Start Date End Date Rox Bustillo NP [address] [address] PCP - General Family Medicine 04/21/21 No, Physician 01/10/17 documented as of this encounter
--- OUTSIDE RECORDS SUMMARY | 2024-06-13 23:56 | XMS_ITS | Encounter Summary ---
Author Organization [facility] Healthcare Address [address] [place] [address] Care Team Providers Care Brick Unloader Tender Name Role Phone No, Physician Unavailable Rox Bustillo NP Primary Care Provider Encounter Details Date Type Department Care Team (Latest Contact Info) Description 08/15/2023 9:02 AM CDT - 08/15/2023 11:59 PM CDT Hospital Encounter [facility] Nutrition and Diabetic Education [facility] [address] [place] [address] Fields, Yareli Lechuga, RD [address] [place] [address] Discharge Disposition: Discharge to home or self [...] week 01/18/2023 How often do you attend caodaism or confucianism serv ices? Never 01/18/2023 Do you belong to any clubs o r organizations such as caodaism groups, unions, fraternal or athletic groups, or school groups? No 01/18/2023 How often do you attend meet ings of the clubs or organizations you belong to? Never 01/18/2023 Are you , , di vorced, , never , or living with a partner? Never 01/18/2023 AUDIT-C Answer Date Recorded Q1: How often do you have a drink containing alcohol? Never 07/04/2023 Q2: How many drinks containi ng alcohol do you have on a typical day when you are drinking? Patient does not drink Q3: How often do you have si x or more drinks on one occasion? Never 07/04/2023 Overall Financial Resource Strain (CARDIA) Answe r Date Recorded How hard is it for you to pa y for the very basics like food, housing, medical care, and heating? Not hard at all 01/18/2023 PHQ-2 Answer Date Recorded PHQ-2 Total Score (If total score is 3 or more points, staff should administer the PHQ-9) 0 01/18/2023 [facility] Occupat ional [facility] - Occupational Stress Questionnaire Answer Date [...] place to sleep or slept in a senior living (including now)? No 01/18/2023 Personal Safety Answer Date Recorded Have you ever been in or are you currently in a harmful physical or emotional relationship or is someone making you feel afraid or unsafe? 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 Sex Female 8:56 PM CARE MANAGEMENT ASSOCIATE Gender Identity Not on file Sexual Orientation Not on file documented as of this encounter Medications at Time of Discharge medroxyPROGESTER one (PROVERA) 10 mg tablet 07/05/2022 metoprolol XL (TOPROL-XL) 25 mg extended release tablet Take 1 tablet (25 mg total) by mouth daily 05/15/2022 triamterene-hydr oCHLOROthiazide 37.5-25 mg per tablet TK 1 T PO QD 01/14/2020 ondansetron (ZOFRAN) 4 mg tablet Take 1 tablet (4 mg total) by mouth every 6 (six) hours as needed for nausea or vomiting for up to 14 days 30 tablet 01/19/2023 4 phentermine (ADIPEX-P) 37.5 mg tabletIndication s:Weight Loss Management for Obese Patient (BMI >= 30) Take 1 tablet (37.5 mg total) by mouth daily before breakfast 90 tablet 07/04/2023 documented as of this encounter Discharge Disposition Disposition Code Departure Means Destination Discharge to home or self care documented in this encounter Progress Notes * Yareli Fields, RD - 08/15/2023 9:30 AM CDT Outpatient Nutrition Counseling Assessment Patient Name: Maeve Ross : 2000 Sex: female Encounter Date: 08/15/2023 Time Calculation (min): 35 min Visit #: [address] Rosario to nutrition counseling for Morbid Obesity/ S/P Bariatric Gastric SleeveSurgery. . She has a past medical history of Anemia, Hypertension, Obesity, Ovarian cyst, and Sleep apnea. Assessment: Pt was alone for today's nutritional counseling follow up. Today's weight was 268.4 lbs. This was a6.4 wt loss/ month. Pt reports she started slacking off exercising and watching po intake the last 3-4 weeks d/t being sick. She reverted back to eating out a lot. Pt to resume taking bariatric meds and vitamins. Pt reports having had the stomach flu. No report of food insecurity Food Insecurity: No Food Insecurity (01/18/2023) Hunger Vital Sign Worried About Running Out of Food in the Last Year: Never true Ran Out of Food in the Last Year: Never true Diet Recall: Breakfast: banana, iced coffee-no sugar. Lunch: lunch meat, protein chips. Dinner: protein drink~30 grams protein. Snacks: cheese stick, water packet in water, SF popsicle. Beverages: protein drink, iced coffee. Personal Goals: go to the gym every other day and walk 1-1.5 miles/ days she doesn't go to the gym.Increase water intake. Support System: family Barriers to change: lacks motivation to avoid fast food establishments Exercise: walk, ride bike, row machine. Anthropometrics: Ht 165.1 cm (5' 5 ) BMI 46.05 kg/m?? IBW/kg (Calculated) : 56.7 kg. Today's weight = 268.4 lbs. Wt Readings from Last 3 Encounters: 07/12/23 125.5 kg (276 lb 11.2 oz) 07/04/23 130.1 kg (286 lb 14.4 oz) 05/01/23 131.1 kg (289 lb) No results found for: CALCBMI Relevant Medications and Lab Review: HOME MEDICATIONS : medroxyPROGESTERone (PROVERA) 10 mg tablet metoprolol XL (TOPROL-XL) 25 mg extended release tablet phentermine (ADIPEX-P) 37.5 mg tablet triamterene-hydroCHLOROthiazide 37.5-25 mg per tablet Food/Medication interactions: na MVI use: na Lab Results Component Value Date HGBA1C 5.2 11/14/2022 Lab Results Component Value Date CHOL 163 11/14/2022 HDL 43 11/14/2022 TRIG 169 (H) 11/14/2022 CREATININE 0.62 01/18/2023 BUNSER 9 01/18/2023 SODIUM 137 01/18/2023 POTASSIUM 4.2 01/18/2023 PHOS 2.8 01/18/2023 Nutritional Needs and Diagnosis: Careplan 1 Nutrition Diagnosis 1: Food and nutrition-related knowledge deficit Related to: Food choices, Lack of activity, Lack of adherence, Lack of education Evidenced by: Patient interview, Physical finding Nutritional Needs: Total Kcal/kg Estimated Needs : 1217.45 Kcal/k Total Protein Estimated Needs (gm): 121.75 Protein Needs Based on g/k.0 Total Daily Carbohydrates Recommended (gm): 120 Total Fat Estimated Needs (gm): 27.05 Fat Needs Based on % of Calories: 20 Total Fluid Estimated Needs: 1217.45 Fluid Needs Based on : 1 ml/kcal Intervention: Educated and counseled pt on basics of health and nutrition, how to read nutrition facts labels, mindfulness, meal planning. Pt provided with sample meal plan, recipes, grocery shopping list, and relevant handouts. Discussed importance of making heart healthy diet choices. Specifically, lowering total fat and saturated fat consumption as well as decreasing sodium in the diet to <2000mg per day. Extensively discussed mindful eating, discussing: Encouraged to slow down meal times by using all of your senses (sight, smell, taste, etc.) avoiding distractions (ex. TV) drinking water between bites Identify hunger cues using smaller plates to decrease portions Placing foods/beverages in pantry instead of counter & keep healthier alternatives available toavoid impulse choices Preplan meals away from home by looking at nutrition information online, ordering kids or lunch meals, and asking windows server support technician for to-go box at beginning of meal. Discussed choosing lean protein and opting for unsaturated fats over saturated fats. Encouraged Maeve Ross to incorporate physical activity as permitted by MD with overall goal of 240 minutes per week or more. Patient Center Goals: lose weight 3-5 lbs/month Recommendations: Read labels. Count carb, protein & fat grams. Eat/drink 60-80 grams protein/day. Measure portion sizes. Keep a food diary. Eat more lean protein/ low carb veggies/ salad. Avoid fried/high fat/high calorie foods. Walk or exercise 4-5 times/week for 30 min each. Avoid mindless eating. Avoid eating after 7 pm. Drink 6-8 glasses water/day. F/U with RD as needed. Monitoring/Evaluation: weigh in Evaluation of Learning: Pt Maeve Ross needs further instruction and needs review/assistance Pt is in Action stage of change. Expect adherence to recommendations to be fair. Pt to follow up and for support/reinforcement. Communication sent to referring provider with education provided and desired outcomes Yareli Fields RDN, LDN. documented in this encounter Plan of Treatment Not on file documented as of this encounter Visit Diagnoses Not on filedocumented in this encounter Care Teams Brick Unloader Tender Relationship Specialty Start Date End Date Rox Bustillo NP [address] [address] PCP - General Family Medicine 04/21/21 No, Physician 01/10/17 documented as of this encounter
--- OUTSIDE RECORDS SUMMARY | 2024-06-13 23:56 | XMS_ITS | Referral Summary ---
Author Organization [facility] Address [address] [place] [address] Care Team Providers Care Cafeteria Team Leader Name Role Phone No, Physician Unavailable Rox Bustillo NP Primary Care Provider Encounters Date Type Department Care Team Description 04/13/2024 12:38 PM WAREHOUSE PACKER - 04/13/2024 2:15 PM [facility] Emergency [facility] Emergency Department [address] [place] [address] Acute pain of right knee (Primary Dx) Discharge Disposition: Discharge to home or self care from Last 3 Months Allergies Active Allergy Reactions Criticality Noted Date Comments Penicillins Hives,Swelling Medium 07/21/2016 Medications triamterene-hydroC HLOROthiazide 37.5-25 mg per tablet TK 1 T PO QD 0 Active medroxyPROGESTERon e (PROVERA) 10 mg tablet 3 Active metoprolol XL (TOPROL-XL) 25 mg extended release tablet Take 1 tablet (25 mg total) by mouth daily 2 Active multivit-min/iron/ folic acid/K (BARIATRIC MULTIVITAMINS ORAL) Take by mouth Active phentermine (ADIPEX-P) 37.5 mg tabletIndications: Abnormal weight gain,Class 3 severe obesity due to excess calories without serious comorbidity with body mass index (BMI) of 40.0 to 44.9 in adult (HCC) TAKE 1 TABLET(37.5 MG) BY MOUTH DAILY BEFORE BREAKFAST 90 tablet 4 Active ondansetron (ZOFRAN) 4 mg tablet TAKE 1 TABLET(4 MG) BY MOUTH EVERY 6 HOURS FOR UP TO 14 DAYS NEEDED FOR NAUSEA OR VOMITING 30 tablet 4 Active naproxen (NAPROSYN) 500 mg tablet Take 1 tablet (500 mg total) by mouth 2 (two) times a day with meals 30 tablet 4 Active methocarbamoL (ROBAXIN) 500 mg tablet Take 1 tablet (500 mg total) by mouth 2 (two) times a day 20 tablet 4 Active ondansetron ODT (ZOFRAN-ODT) 4 mg disintegrating tablet Take 1 tablet (4 mg total) by mouth every 8 (eight) hours as needed for nausea or vomiting 20 tablet 4 Active Active Problems Problem Noted Date Diagnosed Date Abnormal weight gain 10/03/2023 S/P gastric sleeve procedure 07/13/2023 History of bariatric surgery 04/17/2023 Morbid obesity 12/15/2022 Heartburn 10/24/2022 Restless legs syndrome (RLS) 03/30/2022 LEDA (obstructive sleep apnea) 10/20/2021 Anxiety 10/03/2021 Chest discomfort 10/03/2021 Sleep pattern disturbance 10/03/2021 Vaginal discharge 09/07/2021 Achilles tendinitis of right lower extremity 11/2019 Edema of lower extremity 01/14/2020 Vitamin D deficiency 07/20/2019 Class 3 severe obesity due t o excess calories without serious comorbidity with body mass index (BMI) of 40.0 to 44.9 in adult 04/13/2019 Essential (primary) hypertension 04/10/2019 BMI 45.0-49.9, adult 05/17/2017 Assessment & Plan (05/01/2023 8:42 AM WAREHOUSE PACKER): Patient will continue small frequent meals. Continue to encourage protein supplementation. Exercise as tolerates. Continue to work with the dietitian and attend the monthly support group meetings. We will see her back at 3 months. She will call us sooner if anything changes. Assessment & Plan (02/27/2023 9:21 AM CDT): Patient was little concerned and wanted to lose a little bit more weight. We have discussed that she can stay on the liquid diet with protein supplementation as long as she would like. She can continue to increase her exercise tolerance. Continue to work with the dietitian. We will see her back in 2 months. Assessment & Plan (2023 2:57 PM CDT): Continue small frequent meals. Continue to advance diet as laid out in post bariatric handout. Continue calcium, multivitamin vitamin-D. Continue Pepcid the 1st month. We will see her back in 1 month. No submerging incisions for another week. She will call sooner if any changes arise Assessment & Plan (12/12/2022 10:19 AM CDT): The patient has done well during her six-month time having lost around 20 lb. We have given her the preop diet and gone over instructions of starting this 2 weeks prior. In the meantime she will continue to attend the monthly support group meetings. She will continue to work with the dietitian. We will encourage her to continue with a cardiovascular regimen shooting for 30 minutes 3 times a week. We will submit everything to insurance now. Once we have the approval we will call her back with the date. She is in understanding of the plan. Assessment & Plan (11/14/2022 8:45 AM CDT): Continue small frequent meals. Continue to work with the dietitian. Exercise as tolerates. We will follow back up with her next month. Assessment & Plan (10/13/2022 9:06 AM CDT): Patient continues to do well with her weight loss in preparation for surgery. She is really trying to make healthier choices with her p.o. intake and increase her activity. Continue to work with the dietitian. We will encourage her to attend the monthly support group meetings. We will see her back next month to reassess. Assessment & Plan (09/14/2022 8:58 AM CDT): Now that she is done well working on the dietary aspect we have encouraged her to incorporate some kind of exercise regimen this coming month. She will continue to work with the dietitian and attend the monthly support group meetings. We will see her next month to reassess her progress. Assessment & Plan (08/17/2022 8:50 AM CDT): We will make referrals to the dietitian, psych and physical therapy to continue to help her with her process. Continue small frequent meals. Exercise as tolerates. We will see her back next month Assessment & Plan (07/20/2022 8:52 AM WAREHOUSE PACKER): Given their past success the patient would be a good candidate for weight loss surgery. We have gone over options such as the bypass and sleeve gastrectomy. We have also discussed risks and benefits such as blood clots, staple line leak as well as new or worsening reflux symptoms. They are in understanding. During this time will have them seen by the dietitian and psych. As we get closer to the time of surgery we will set him up for an EGD to look for hiatal hernia, H pylori or other gastric pathology. We will see them back in 4 weeks. During that time they are going to weigh their options about which surgery they would like to proceed with. They are in understanding of the plan. We have gone over small frequent meals shooting for a goal calorie intake of around 1600 spread throughout 4-5 meals. We have discussed not eating late at night. We have discussed cardiovascular exercise. Greater than 15 minutes was spent in counseling the patient on diet and exercise with regards to her morbid obesity. Epigastric pain 05/17/2017 Assessment & Plan (05/17/2017 9:33 PM WAREHOUSE PACKER): Possible acute cholecystitis, will admit to hospital and give fluids and continue work up for abdominal pain and get pain and nausea under control Resolved Problems Problem Noted Date Diagnosed Date Resolved Date Cervicitis 04/09/2019 2023 Biliary dyskinesia 05/17/2017 4 Social History Tobacco Use Types Packs/Day Years [...] week 01/18/2023 How often do you attend quaker or restorationism serv ices? Never 01/18/2023 Do you belong to any clubs o r organizations such as quaker groups, unions, fraternal or athletic groups, or [...] staff should administer the PHQ-9) 0 01/18/2023 [facility] - Occupational Stress [...] on file Legal Sex Female 8:56 PM WAREHOUSE PACKER Gender Identity Not on file Sexual Orientation Not on file Last Filed Vital Signs Vital Sign Reading Time Taken Comments Blood Pressure 129/82 04/13/2024 12:36 PM WAREHOUSE PACKER Pulse 102 04/13/2024 12:36 PM WAREHOUSE PACKER Temperature 36.7 ??C (98.1 ??F) 04/13/2024 12:[address] Respiratory Rate 17 04/13/2024 12:36 PM WAREHOUSE PACKER Oxygen Saturation 98% 04/13/2024 12:36 PM WAREHOUSE PACKER Inhaled Oxygen Concentration - - Weight 113.4 kg (250 lb) 04/13/2024 12:36 PM WAREHOUSE PACKER Height 165.1 cm (5' 5 ) 04/13/2024 12:36 PM WAREHOUSE PACKER Body Mass Index 41.6 04/13/2024 12:36 PM WAREHOUSE PACKER Plan of Treatment Not on file Procedures Procedure Name Priority Date/Time Associated Diagnosis Comments XR KNEE RIGHT 3 VIEWS ED 04/13/2024 1:10 PM WAREHOUSE PACKER from Last 3 Months Results * XR Knee Right 3 Views (04/13/2024 1:10 PM WAREHOUSE PACKER) Anatomical Region Laterality Modality Lower Extremities, Knee Right Computed Radiography 04/13/2024 1:12 PM WAREHOUSE PACKER Narrative 04/13/2024 1:13 PM WAREHOUSE PACKER EXAM DESCRIPTION: XR KNEE RIGHT 3 VIEWS [...] PM T: ??04/13/2024 1:13 PM Report ID: [id number] [place] Location: [id number] Procedure Note Rafael Collins MD - 04/13/2024 [...] Rafael Collins M.D. MJ: JS Report ID: [id number] [place] Location: [place] [address] [address] [facility] IMG XR PROCEDURES Final Result from Last 3 Months Insurance WORK[employer] COMPENSATION GENERIC Advance Directives For more information, please contact: [phone] * Full Code (Latest Code Status on File) Date Activated Date Inactivated Comments 01/17/2023 1:31 PM 01/19/2023 6:00 PM * Full Code Date Activated Date Inactivated Comments 11/14/2022 11:55 AM 11/14/2022 6:20 PM * Full Code Date Activated Date Inactivated Comments 05/15/2017 5:04 PM 05/18/2017 11:48 PM Care Teams Cafeteria Team Leader Relationship Specialty [place] [address] [place] [id number] PCP - General Family Medicine 04/21/21 No, Physician 01/10/17
--- OUTSIDE RECORDS SUMMARY | 2024-06-13 23:56 | XMS_ITS | Encounter Summary ---
Author Organization [facility] Healthcare Address [address] [place] [address] Care Team Providers Care Clinical Applications Manager Name Role Phone No, Physician Unavailable Rox Bustillo NP Primary Care Provider [phone] Encounter Details Date Type Department Care Team (Late st Contact Info) Description 08/15/2023 Telephone [facility] [address] [facility] [address] [place] [address] Afshan Watson Social History Tobacco Use Types Packs/Day Years [...] week 01/18/2023 How often do you attend methodist or denominational serv ices? Never 01/18/2023 Do you belong to any clubs o r organizations such as methodist groups, unions, fraternal or athletic groups, or [...] staff should administer the PHQ-9) 0 01/18/2023 [facility] of Occupat ional Health - Occupational Stress [...] place to sleep or slept in a intermediate (including now)? No 01/18/2023 Personal Safety Answer Date Recorded Have you ever been in or are you currently in a harmful physical or emotional relationship or is someone making you feel afraid or unsafe? 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 Sex Female 8:56 PM STORE DELI MANAGER Gender Identity Not on file Sexual Orientation Not on file documented as of this encounter Miscellaneous Notes * Telephone Encounter - Afshan Watson - 08/15/2023 9:49 AM CDT Talk to pt. She is stating that she is having flu symptoms that has been going on for about 2 weeks. Spoke to Marlene stated she will need to contact her PCP. sounds like she needs to get tested for covid,influenza and whatever else primary care would like to do. Informed pt. She was in understanding. documented in this encounter Plan of Treatment Not on file documented as of this encounter Visit Diagnoses Not on filedocumented in this encounter Care Teams Clinical Applications Manager Relationship Specialty Start Date End Date Rox Bustillo NP [address] [address] PCP - General Family Medicine 04/21/21 No, Physician 01/10/17 documented as of this encounter
--- OUTSIDE RECORDS SUMMARY | 2024-06-13 23:56 | XMS_ITS | Clinical Summary ---
Author Organization [facility] Address [address] [place] [address] Care Team Providers Care Psychologist Social Name Role Phone No, Physician Unavailable Rox Bustillo NP Primary Care Provider + [phone] Allergies Active Allergy Reactions Criticality Noted Date [...] 05/17/2017 Assessment & Plan (05/01/2023 8:42 AM APPEALS COORDINATOR): Patient will continue small frequent meals. Continue [...] month Assessment & Plan (07/20/2022 8:52 AM APPEALS COORDINATOR): Given their past success the patient would [...] 05/17/2017 Assessment & Plan (05/17/2017 9:33 PM APPEALS COORDINATOR): Possible acute cholecystitis, will admit to hospital and give fluids and continue work up for abdominal pain and get pain and nausea under control Resolved Problems Problem Noted Date Diagnosed Date Resolved Date Cervicitis 04/09/2019 2023 Biliary dyskinesia 05/17/2017 Encounters Date Type Department Care Team Description 04/13/2024 12:38 PM APPEALS COORDINATOR - 04/13/2024 2:15 PM APPEALS COORDINATOR Emergency [facility] Emergency Department [address] [place] [address] Acute pain of right knee (Primary Dx) Discharge Disposition: Discharge to home or self care from Last 3 Months Surgical History Surgery Date Site/Laterality Comments OTHER SURGICAL HISTORY myringotomy OTHER SURGICAL HISTORY exploratory laparoscopic cyst on ovary CHOLECYSTECTOMY UPPER GASTROINTESTINAL ENDOSCOPY 11/14/2022 BARIATRIC SURGERY 01/17/2023 Sleeve Medical History Medical History Date Comments Obesity Anemia Ovarian cyst Hypertension Sleep apnea Biliary dyskinesia 05/17/2017 Family History Medical History Relation Name Comments Bladder Cancer Father Cancer Father Diabetes Father Heart disease Father Stroke Father Multiple sclerosis Father's Sister Hearing loss Maternal Grandfather Anemia Mother Diabetes Paternal Grandfather Hearing loss Paternal Grandfather Diabetes Paternal Grandmother Stroke Paternal Grandmother Relation Name Status Comments Father Alive Father's Sister Alive Maternal Grandfather Alive Maternal Grandmother Alive Mother Alive Paternal Grandfather Paternal Grandmother Alive Social History Tobacco Use Types Packs/Day Years [...] week 01/18/2023 How often do you attend alevism or taoism serv ices? Never 01/18/2023 Do you belong to any clubs o r organizations such as alevism groups, unions, fraternal or athletic groups, or [...] you are drinking? Patient does not drink 05/01/202 4 Q3: How often do you have si [...] staff should administer the PHQ-9) 0 01/18/2023 [facility] - Occupational Stress Questionnaire Answer Date [...] place to sleep or slept in a alf (including now)? No 01/18/2023 Personal Safety Answer Date Recorded Have you ever been in or are you currently in a harmful physical or emotional relationship or is someone making you feel afraid or unsafe? Denies 04/13/2024 Comments No Sex and Gender Information Value Date Recorded Sex Assigned at Not on file Legal Sex Female 8:56 PM APPEALS COORDINATOR Gender Identity Not on file Sexual Orientation Not on file Obstetrics History Last Filed Vital Signs Vital Sign Reading Time Taken Comments Blood Pressure 129/82 04/13/2024 12:36 PM APPEALS COORDINATOR Pulse 102 04/13/2024 12:36 PM APPEALS COORDINATOR Temperature 36.7 ??C (98.1 ??F) 04/13/2024 12:[address] Respiratory Rate 17 04/13/2024 12:36 PM APPEALS COORDINATOR Oxygen Saturation 98% 04/13/2024 12:36 PM APPEALS COORDINATOR Inhaled Oxygen Concentration - - Weight 113.4 kg (250 lb) 04/13/2024 12:36 PM APPEALS COORDINATOR Height 165.1 cm (5' 5 ) 04/13/2024 12:36 PM APPEALS COORDINATOR Body Mass Index 41.6 04/13/2024 12:36 PM APPEALS COORDINATOR Plan of Treatment Health Maintenance Due Date Last Done Comments Cervical Cancer Screening 1998 Hepatitis C Screening 1998 Regular Well Visit/Exam 18-64 01/26/2016 DTaP/Tdap/Td Vaccine (7 - Td or Tdap) 07/09/2022 07/09/2012, 03/03/2003, 02/03/2000, Additional history exists Depression Screening 01/19/2024 01/18/2023, 01/19/20 23 Covid-19 Vaccine ( season) 2024 09/19/2021, 08/26/2021 Influenza Vaccine (#1) 2024 04/09/2015 Varicella Vaccines Completed 07/09/2012, 02/03/2000 HPV Vaccines Completed 04/09/2015, 11/03, 02/24/2013 Pneumococcal vaccine <65 Aged Out No longer eligible based on patient's age to complete this topic Procedures Procedure Name Priority Date/Time Associated Diagnosis Comments XR KNEE RIGHT 3 VIEWS ED 04/13/2024 1:10 PM APPEALS COORDINATOR from Last 3 Months Results * XR Knee Right 3 Views (04/13/2024 1:10 PM APPEALS COORDINATOR) Anatomical Region Laterality Modality Lower Extremities, Knee Right Computed Radiography 04/13/2024 1:12 PM APPEALS COORDINATOR Narrative 04/13/2024 1:13 PM APPEALS COORDINATOR EXAM DESCRIPTION: XR KNEE RIGHT 3 VIEWS [...] 1:13 PM - Electronically signed by ??Rafael WEINSTEIN: JS D: ??04/13/2024 1:13 PM T: ??04/13/2024 1:13 PM Report ID: [id number] Reading Location: ??[id number] Procedure Note Rafael Collins MD - 04/13/2024 [...] 1:13 PM - Electronically signed by Rafael WEINSTEIN Report ID: [id number] Reading Location: [id number] [place] [facility] IM[facility] XR PROCEDURES Final Result from Last 3 Months Insurance Member Subscriber Plan / Payer (Ef fective 2022-Present) Name:Maeve Ross Relation to Subscriber:Self Name:Maeve Ross Payer ID:[id number] (NAIC) Group ID:Not on file Type:MEDICAID RISK OTHER Address: ATTN: CLAIMS DEPT [address] [facility] [place] [id number] WORKERS COMPENSATION GENERIC Advance Directives For more information, please contact: [phone] * Full Code (Latest Code Status on File) Date Activated Date Inactivated Comments 01/17/2023 1:31 PM 01/19/2023 6:00 PM * Full Code Date Activated Date Inactivated Comments 11/14/2022 11:55 AM 11/14/2022 6:20 PM * Full Code Date Activated Date Inactivated Comments 05/15/2017 5:04 PM 05/18/2017 11:48 PM Care Teams Psychologist Social Relationship Specialty Start Date End Date Rox Bustillo NP [address] [address] PCP - General Family Medicine 04/21/21 No, Physician 01/10/17
--- OUTSIDE RECORDS SUMMARY | 2024-06-13 23:56 | XMS_ITS | Encounter Summary ---
Author Organization [facility] Healthcare Address [address] [place] [address] Care Team Providers Care High Heel Builder Name Role Phone No, Physician Unavailable Rox Bustillo NP Primary Care Provider Reason for Visit * Reason Comments f/u sleeve 01/17/23 Encounter Details Date Type Department Care Team (Late st Contact Info) Description 01/10/2024 8:40 AM CDT Office Visit [facility] [address] [facility] [address] [place] [address] Hortencia Castro NP 2 [facility] [address] [place] [address] S/P gastric sleeve procedure (Primary Dx) Social History Tobacco Use Types [...] week 01/18/2023 How often do you attend taoism or rastafarian serv ices? Never 01/18/2023 Do you belong to any clubs o r organizations such as taoism groups, unions, fraternal or athletic groups, or [...] staff should administer the PHQ-9) 0 01/18/2023 [facility] - Occupational Stress Questionnaire Answer Date Recorded [...] place to sleep or slept in a long term (including now)? No 01/18/2023 Personal Safety Answer Date Recorded Have you ever been in or are you currently in a harmful physical or emotional relationship or is someone making you feel afraid or unsafe? 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 Gender Identity Not on file Sexual Orientation Not on file documented as of this encounter Last Filed Vital Signs Vital Sign Reading Time Taken Comments Blood Pressure 108/78 01/10/2024 8:23 AM CDT Pulse 86 01/10/2024 8:23 AM CDT Temperature 36.2 ??C (97.1 ??F) 01/10/2024 8:23 AM CD T Respiratory Rate - - Oxygen Saturation 98% 01/10/2024 8:23 AM CDT Inhaled Oxygen Concentration - - Weight 119.2 kg (262 lb 11.2 oz) 01/10/2024 8:23 AM CDT Height 165.1 cm (5' 5 ) 01/10/2024 8:23 AM CDT Body Mass Index 43.72 01/10/2024 8:23 AM CDT documented in this encounter Progress Notes * Hortencia Castro NP - 01/10/2024 8:40 AM CDT Images from the original note were not included. Post Op Note Subjective: Patient Name: Maeve Ross Date of Visit: 01/10/2024 HPI: post op f/u sleeve (01/17/23) Post op gastric sleeve.Still losing weight although slower. Not following the diet properly and notexercising as much as she could. Not taking Tirzepatide as her insurance did not cover this, phentermine does not work as well. Her biochemical development engineer appointment was cancelled. Chief Complaint: f/u sleeve (01/17/23) Objective: Vitals BP 108/78 (BP Location: Left arm, Patient Position: Sitting) Pulse 86 Temp 36.2 ??C (97.1 ??F) Ht 165.1 cm (5' 5 ) Wt 119.2 kg (262 lb 11.2 oz) SpO2 98% BMI 43.72 kg/m?? Physical Exam Constitutional: The patient is oriented to person, place, and time. They appear well-nourished. No distress. Cardiovascular: Normal rate and regular rhythm. Pulmonary/Chest: Effort normal and breath sounds normal. Abdominal: Soft. Non-tender Assessment/Plan Diagnoses and all orders for this visit: S/P gastric sleeve procedure (Primary) - CBC without differential; Future - Basic metabolic panel; Future - Folate; Future - Iron profile w/ IBC; Future - Vitamin D 25 hydroxy; Future - Vitamin B1; Future - Vitamin B12; Future - Hemoglobin A1c; Future Set up biochemical development engineer appointment jaison to reset pouch. She was urged to cut all sugar and intake high protein and follow the diet. She will plan gym visits with kids going back to school. Labs today. We will see her back in 3 months. Hortencia Castro NP documented in this encounter Plan of Treatment Not on file documented as of this encounter Results * Hemoglobin A1c (01/10/2024 9:03 AM CDT) Hgb A1C 5.2 4.0 - 5.6 % Estimated Average Glucose 103 mg/dL [facility] ARCHULETA ([place]) Comment: The ADA recommends reporting an estimated Average Glucose (eAG) with all Hemoglobin A1c results using the equation derived from a study of 507 normal and diabetic adults. ??Minority populations were underrepresented and children were not included. ?? (Diabetes Care 31:5910-2362, 2008). ??The eAG is not equivalent to a fasting glucose. Blood 01/10/2024 9:03 AM CDT 01/10/2024 11:09 AM CDT Hortencia Castro WELDER AND FITTER LAB BLOOD ORDERABLES Final Res ult [facility]HEAL ARCHULETA ([place]) 1 [facility] [place] [address] * Vitamin B12 (01/10/2024 9:03 AM CDT) Vitamin B12 514 230 - 1,250 pg/mL Blood 01/10/2024 9:03 AM CDT 01/10/2024 11:09 AM CDT Hortencia Castro WELDER AND FITTER LAB BLOOD ORDERABLES Final Res ult Performing Organization Address City/[facility] Co de Phone Number MICHEAL ARCHULETA ([place]PP[place]) 1 [facility] [employer] [place] [address] * Vitamin B1 (01/10/2024 9:03 AM CDT) Thiamine (Vit B1) 81 70 - 180 nmol/L [facility] ref [facility] Comment: ADDITIONAL INFORMATION This test was developed and its performance characteristics determined by [facility] in a manner consistent with CLIA requirements. This test has not been cleared or approved by the U.S. Food and Drug Administration. Test Performed by: [facility] - [address] [address] Education Faculty Member: Alo Diaz Ph.D.; CLIA# [id number] Blood 01/10/2024 9:03 AM CDT 01/10/2024 11:03 AM CDT Hortencia Castro WELDER AND FITTER LAB BLOOD ORDERABLES Final Res ult MICHEAL ARCHULETA ([place]) 1 [facility] [place] [address] [facility] ref Lab * Vitamin D 25 hydroxy (01/10/2024 9:03 AM CDT) Vitamin D 25-OH 31 30 - 80 ng/mL Blood 01/10/2024 9:03 AM CDT 01/10/2024 11:09 AM CDT Hortencia Castro WELDER AND FITTER LAB BLOOD ORDERABLES Final Res ult Performing Organization Address [facility]/ZIP Co de Phone Number MICHEAL ARCHULETA ([place]) 1 [facility] [place] [place] [address] * Iron profile w/ IBC (01/10/2024 9:03 AM CDT) Iron 82 35 - 145 mcg/dL TIBC 339 250 - 400 mcg/dL [facility] ([facility]) Transferrin saturation 24 20 - 50 % MICHEAL KATHE ([place]PP[place]) Blood 01/10/2024 9:03 AM CDT 01/10/2024 11:08 AM CDT Hortencia Castro WELDER AND FITTER LAB BLOOD ORDERABLES Final Res ult Performing Organization Address City/[facility]/ZIP Co de Phone Number MICHEAL ARCHULETA ([place]) 1 [facility] [place] [place] [address] * Folate (01/10/2024 9:03 AM CDT) Folic acid 8.1 >=5.0 ng/mL Comment:Slightly Hemolyzed S pecimen. Results may be affected. Blood 01/10/2024 9:03 AM CDT 01/10/2024 11:09 AM CDT us Hortencia Castro WELDER AND FITTER LAB BLOOD ORDERABLES Final Res ult [facility]HEAL ARCHULETA ([place]) 1 [facility] [place] [address] * Basic metabolic panel (01/10/2024 9:03 AM CDT) Sodium 137 135 - 145 mmol/L Potassium, pl 4.2 3.3 - 4.9 mmol/L [facility] ([place]) Chloride 101 97 - 110 mmol/L [facility] ([place]) CO2 27 22 - 32 mmol/L [facility] ([place]) Anion gap 9 2 - 15 mmol/L [facility] ([place]) BUN 18 6 - 25 mg/dL [facility] ([place]) Creatinine 0.62 0.60 - 1.10 mg/dL [facility] ([place]) Glucose 84 70 - 199 mg/dL [facility] ([place]) Comment: Interpretive Data Fasting glucose >/= 126 mg/dl is diagnostic for diabetes. ?? Fasting is defined as no caloric intake for at least 8 hours. Fasting glucose between 100 mg/dl to 125 mg/dl is diagnostic of prediabetes. In a patient with classic symptoms of hyperglycemia or hyperglycemic crisis, a random glucose >/= 200 mg/dl is diagnostic for diabetes. In the absence of unequivocal hyperglycemia, results should be confirmed by repeat testing. The classification and Diagnosis of Diabetes Diabetes Care 2021; 46: S19-S40. Current interpretive data was last revised 2022. Calcium 9.0 8.5 - 10.3 mg/dL [facility] ([place]) Blood 01/10/2024 9:03 AM CDT 01/10/2024 11:08 AM CDT us Hortencia Castro WELDER AND FITTER LAB BLOOD ORDERABLES Final Res ult MICHEAL HASSAN) 1 [facility] [place] [address] * (ABNORMAL) CBC without differential (01/10/2024 9:03 AM CDT) WBC 9.7 3.8 - 9.9 K/cumm Hgb 12.7 11.9 - 15.5 g/dL [facility] ([place]) Hct 39.7 35.6 - 45.5 % [facility] ([place]) Plt 258 150 - 400 K/cumm [facility] ([place]) MPV 12.8(H) 9.1 - 12.3 fL [facility] ([place]) RBC 4.86 3.90 - 5.20 M/cumm [facility] ([place]) MCV 81.7 81.3 - 96.4 fL [facility] ([place]) MCH 26.1(L) 27.1 - 33.3 pg [facility] ([place]) MCHC 32.0(L) 32.3 - 35.7 g/dL [facility] ([place]) RDW CV 14.1 11.1 - 14.9 % [facility] ([place]) RDW SD 41.8 35.7 - 48.1 fL [facility] ([place]) NRBC abs 0.00 0.00 - 0.01 K/cumm [facility] ([place]) Blood 01/10/2024 9:03 AM CDT 01/10/2024 11:09 AM CDT us Hortencia Castro NP LAB BLOOD ORDERABLES Final Res ult [facility] ([place]) 1 [facility] [place] [address] documented in this encounter Visit Diagnoses Diagnosis S/P gastric sleeve procedure- Primary documented in this encounter Discontinued Medications Medication Sig Discontinue Reason Start Date End Da te topiramate (TOPAMAX) 50 mg tabletIndications:Abnorma l weight gain,Class 3 severe obesity due to excess calories without serious comorbidity with body mass index (BMI) of 40.0 to 44.9 in adult (HCC) TAKE 1 TABLET(50 MG) BY MOUTH TWICE DAILY 01/07/2024 01/10/2024 tirzepatide, weight loss, (ZEPBOUND) 2.5 mg/0.5 mL pen injectorIndications:Class 3 severe obesity due to excess calories with serious comorbidity and body mass index (BMI) of 45.0 to 49.9 in adult (HCC) Inject 0.5 mL (2.5 mg total) under the skin every 7 days 11/06/2023 01/10/2024 documented as of this encounter Care Teams High Heel Builder Relationship Specialty Start Date End Date Rox Bustillo NP [address] [address] PCP - General Family Medicine 04/21/21 No, Physician 01/10/17 documented as of this encounter
--- OUTSIDE RECORDS SUMMARY | 2024-06-13 23:56 | XMS_ITS | Encounter Summary ---
Author Organization [facility] Healthcare Address [address] [place] [address] Care Team Providers Care Hl7 Developer Name Role Phone No, Physician Unavailable Rox Bustillo NP Primary Care Provider [phone] Reason for Visit * Reason Comments Follow up Sleeve FU 01/17/23 Encounter Details Date Type Department Care Team (Late st Contact Info) Description 10/09/2023 9:20 AM CDT Office Visit [facility] 4 [facility] [address] [place] [address] Hortencia Castro NP 2 [facility] [address] [place] [address] S/P gastric sleeve procedure (Primary Dx) Social [...] week 01/18/2023 How often do you attend baptism or church serv ices? Never 01/18/2023 Do you belong to any clubs o r organizations such as baptism groups, unions, fraternal or athletic groups, or [...] staff should administer the PHQ-9) 0 01/18/2023 [facility] - Occupational Stress Questionnaire Answer Date Recorded [...] place to sleep or slept in a fdc (including now)? No 01/18/2023 Personal Safety Answer Date Recorded Have you ever been in or are you currently in a harmful physical or emotional relationship or is someone making you feel afraid or unsafe? 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 Gender Identity Not on file Sexual Orientation Not on file documented as of this encounter Last Filed Vital Signs Vital Sign Reading Time Taken Comments Blood Pressure 124/86 10/09/2023 9:07 AM CDT Pulse 89 10/09/2023 9:07 AM CDT Temperature 36.2 ??C (97.1 ??F) 10/09/2023 9:07 AM CD T Respiratory Rate - - Oxygen Saturation 98% 10/09/2023 9:07 AM CDT Inhaled Oxygen Concentration - - Weight 119.2 kg (262 lb 11.2 oz) 10/09/2023 9:07 AM CDT Height 165.1 cm (5' 5 ) 10/09/2023 9:07 AM CDT Body Mass Index 43.72 10/09/2023 9:07 AM CDT documented in this encounter Progress Notes * Hortencia Castro NP - 10/09/2023 9:20 AM CDT Images from the original note were not included. Post Op Note Subjective: Patient Name: Maeve Ross Date of Visit: 10/09/2023 HPI: post op Follow up (Sleeve FU 01/17/23) Doing well. She wanted to lose more weight by now but she knows she is eating too much. She is in the obesity medicine program the Phentermine helped then her appetite came back, she is now taking Topamax and her appetite has decreased. Chief Complaint: Follow up (Sleeve FU 01/17/23) Objective: Vitals BP 124/86 (BP Location: Right arm, Patient Position: Sitting) Pulse 89 Temp 36.2 ??C (97.1 ??F) Ht 165.1 cm (5' 5 ) Wt 119.2 kg (262 lb 11.2 oz) SpO2 98% BMI 43.72 kg/m?? Physical Exam Constitutional: The patient is oriented to person, place, and time. They appear well-nourished. No distress. Cardiovascular: Normal rate and regular rhythm. Pulmonary/Chest: Effort normal and breath sounds normal. Abdominal: Soft. Non-tender well healed Assessment/Plan Diagnoses and all orders for this visit: S/P gastric sleeve procedure (Primary) Doing well post op. She is still losing weight despite diet. She is working on urges/food intake. She did obtain a referral to Dr. Goyal for conversion surgery but she really did not want to pursue this. She is going to follow back up with supervisor blood and we will see her back in 3 months. Hortencia Castro NP documented in this encounter Plan of Treatment Not on file documented as of this encounter Visit Diagnoses Diagnosis S/P gastric sleeve procedure- Primary documented in this encounter Historical Medications * This list may reflect changes made after this encounter. multivit-min/iron/fo lic acid/K (BARIATRIC MULTIVITAMINS ORAL) Take by mouth added in this encounter Care Teams Hl7 Developer Relationship Specialty Start Date End Date Rox Bustillo NP [address] [address] PCP - General Family Medicine 04/21/21 No, Physician 01/10/17 documented as of this encounter
--- OUTSIDE RECORDS SUMMARY | 2024-06-13 23:56 | XMS_ITS | Encounter Summary ---
Author Organization [facility] Healthcare Address [address] [place] [address] Care Team Providers Care Pmo Lead Name Role Phone No, Physician Unavailable Rox Bustillo NP Primary Care Provider + [phone] Reason for Visit * Reason Comments Weight Loss Encounter Details Date Type Department Care Team (Late st Contact Info) Description 07/04/2023 11:45 AM CORE PLACER Office Visit [facility] Medical Group Family Medicine at [address] [place] [address] Gerson Pollard MD [address] [place] [phone] Abnormal weight gain (Primary Dx); Class 3 severe obesity due to excess calories with serious comorbidity and body mass index (BMI) of 45.0 to 49.9 in adult (HCC) Social History Tobacco Use Types Packs/Day Years [...] week 01/18/2023 How often do you attend christian or mandaeism serv ices? Never 01/18/2023 Do you belong to any clubs o r organizations such as christian groups, unions, fraternal or athletic groups, or [...] staff should administer the PHQ-9) 0 01/18/2023 [facility] - Occupational Stress Questionnaire Answer Date [...] No 01/18/2023 Housing Stability Vital Sign Answer Flody e Recorded In the last 12 months, [...] place to sleep or slept in a care home (including now)? No 01/18/2023 Personal Safety Answer Date Recorded Have you ever been in or are you currently in a harmful physical or emotional relationship or is someone making you feel afraid or unsafe? 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 Sex Female 8:56 PM CORE PLACER Gender Identity Not on file Sexual Orientation Not on file documented as of this encounter Last Filed Vital Signs Vital Sign Reading Time Taken Comments Blood Pressure 114/78 07/04/2023 11:27 AM CORE PLACER Pulse 97 07/04/2023 11:27 AM CORE PLACER Temperature 37.1 ??C (98.7 ??F) 07/04/2023 1 1:27 AM CORE PLACER Respiratory Rate 14 07/04/2023 11:2 7 AM CORE PLACER Oxygen Saturation 97% 07/04/2023 11: 27 AM CORE PLACER Inhaled Oxygen Concentration - - Weight 130.1 kg (286 lb 14.4 oz) 2023 11:27 AM CORE PLACER Height 165.1 cm (5' 5 ) 07/04/2023 11:2 7 AM CORE PLACER Body Mass Index 47.74 07/04/2023 11:27 AM CORE PLACER documented in this encounter Ordered Prescriptions Prescription Sig Dispense Quantity Refills Last Filled Start Date End Date phentermine (ADIPEX-P) 37.5 mg tabletIndications: Weight Loss Management for Obese Patient (BMI >= 30) Take 1 tablet (37.5 mg total) by mouth daily before breakfast 90 tablet 07/04/2023 documented in this encounter Progress Notes * Gerson Pollard MD - 07/04/2023 11:45 AM CST Images from the original note were not included. Visit date: 07/04/2023 Patient ID: Maeve Ross is a 23 y.o. female. Chief Complaint. Chief Complaint Patient presents with Weight Loss HPI. Patient is a 23 y.o. female HPI Lifestyle Medicine For Weight Management: Previous Dietary Approaches: Not on any specific Diet LEDA: no Mental Health: Stable Diabetes: No Previous History of Weight Loss Surgery: Gastric Sleeve 01/2023. 333lb. First Visit Date: 07/04/23 First Visit Weight: 286lb Dates: Weight (lb) Wt Readings from Last 3 Encounters: 07/04/23 130.1 kg (286 lb 14.4 oz) 05/01/23 131.1 kg (289 lb) 02/27/23 (!) 138.8 kg (306 lb 1.6 oz) Total Weight Loss: First Visit Treatment: Medication: Phentermine Meal Replacement/Delivery: No Specific Diet: Not on any specific Diet Food Diary: No Activity: is walking and Daily Steps count about 5000 to [address] Past Medical History: Diagnosis Date Anemia Hypertension Obesity Ovarian cyst Sleep apnea Past Surgical History: Procedure Laterality Date BARIATRIC SURGERY 01/17/2023 Sleeve CHOLECYSTECTOMY OTHER SURGICAL HISTORY myringotomy OTHER SURGICAL HISTORY exploratory laparoscopic cyst on ovary UPPER GASTROINTESTINAL ENDOSCOPY 11/14/2022 Allergies Allergen Reactions Penicillins Hives and Swelling Social History Tobacco Use Smoking status: Never Passive exposure: Past Smokeless tobacco: Never Substance and Sexual Activity Drug use: No Sexual activity: Defer Partners: Male Alcohol Use: Not At Risk (07/04/2023) AUDIT-C Frequency of Alcohol Consumption: Never Average Number of Drinks: Patient does not drink Frequency of Binge Drinking: Never Family History Problem Relation Age of Onset Anemia Mother Cancer Father Bladder Cancer Father Heart disease Father Stroke Father Diabetes Father Multiple sclerosis Father's Sister Hearing loss Maternal Grandfather Stroke Paternal Grandmother Diabetes Paternal Grandmother Hearing loss Paternal Grandfather Diabetes Paternal Grandfather Current Medications: Outpatient Encounter Medications as of 07/04/2023 Medication Sig Dispense Refill medroxyPROGESTERone (PROVERA) 10 mg tablet metoprolol XL (TOPROL-XL) 25 mg extended release tablet Take 1 tablet (25 mg total) by mouth daily triamterene-hydroCHLOROthiazide 37.5-25 mg per tablet TK 1 T PO QD phentermine (ADIPEX-P) 37.5 mg tablet Take 1 tablet (37.5 mg total) by mouth daily before [id number] tablet 0 [DISCONTINUED] docusate sodium (Colace) 100 mg capsule Take 1 capsule (100 mg total) by mouth 2 (two) times a day for 14 days (Patient not taking: Reported on 05/01/2023) 28 capsule 0 [DISCONTINUED] famotidine (PEPCID) 20 mg tablet Take 1 tablet (20 mg total) by mouth 2 (two) times a day (Patient not taking: Reported on 05/01/2023) 60 tablet 11 No facility-administered encounter medications on file as of 07/04/2023. Review of Systems: Review of Systems Constitutional: Positive for activity change, appetite change, fatigue and unexpected weight change. Negative for chills, diaphoresis and fever. HENT: Negative for trouble swallowing and voice change. Eyes: Negative for photophobia and visual disturbance. Respiratory: Negative for apnea, chest tightness and shortness of breath. Cardiovascular: Negative for chest pain, palpitations and leg swelling. Gastrointestinal: Negative for blood in stool, constipation and nausea. Endocrine: Negative for cold intolerance, heat intolerance, polydipsia, polyphagia and polyuria. Musculoskeletal: Negative for arthralgias, back pain, gait problem, myalgias, neck pain and neck stiffness. Skin: Negative for rash. Allergic/Immunologic: Negative for food allergies. Neurological: Negative for dizziness, seizures, weakness, light-headedness and headaches. Hematological: Negative for adenopathy. Psychiatric/Behavioral: Negative for agitation, behavioral problems and suicidal ideas. The patientis not nervous/anxious and is not hyperactive. BP 114/78 (BP Location: Left arm, Patient Position: Sitting) Pulse 97 Temp 37.1 ??C (98.7 ??F) (Oral) Resp 14 Ht 165.1 cm (5' 5 ) Wt 130.1 kg (286 lb 14.4 oz) SpO2 97% BMI 47.74 kg/m?? Physical Exam: Physical Exam Constitutional: He is oriented to person, place, and time. Vital signs are normal. He appears well-developed and well-nourished. HENT: Head: Normocephalic and atraumatic. Mouth/Throat: Oropharynx is clear and moist. Eyes: Pupils are equal, round, and reactive to light. Conjunctivae and EOM are normal. Neck: Normal range of motion. Neck supple. No thyromegaly present. Cardiovascular: Normal rate, regular rhythm, normal heart sounds and intact distal pulses. Pulmonary/Chest: Effort normal and breath sounds normal. Neurological: He is alert and oriented to person, place, and time. Psychiatric: He has a normal mood and affect. His behavior is normal. Judgment and thought content normal. Nursing note and vitals reviewed. Assessment & Plan: Diagnoses and all orders for this visit: Abnormal weight gain (Primary) Comments: Chronic. Uncontrolled. Start Phentermine. Orders: - phentermine (ADIPEX-P) 37.5 mg tablet; Take 1 tablet (37.5 mg total) by mouth daily before breakfast Class 3 severe obesity due to excess calories with serious comorbidity and body mass index (BMI) of45.0 to 49.9 in adult ([facility]) - phentermine (ADIPEX-P) 37.5 mg tablet; Take 1 tablet (37.5 mg total) by mouth daily before breakfast Recommended aggressive Lifestyle modification and weight loss for improving overall weight related health conditions. Follow up in 1 or 3 months for continuing Lifestyle Medicine education and management visit. Recommend Lifestyle/Nutrition/Weight Loss Seminar on every other Tuesdays @ 5pm. Body mass index is 47.74 kg/m??. BMI Plan: Nutrition/Activities/Behavioral Counseling. Education Provided. Follow up 1-3 months. Gerson Pollard MD PLACER documented in this encounter Plan of Treatment Not on file documented as of this encounter Visit Diagnoses Diagnosis Abnormal weight gain- Primary Class 3 severe obesity due to excess calories with serious comorbidity and body mass index (BMI) of 45.0 to 49.9 in adult (HCC) documented in this encounter Discontinued Medications Medication Sig Discontinue Reason Start Date End Da te docusate sodium (Colace) 100 mg capsuleIndications:const ipation Take 1 capsule (100 mg total) by mouth 2 (two) times a day for 14 days Therapy completed 01/19/2023 07/04/2023 famotidine (PEPCID) 20 mg tablet Take 1 tablet (20 mg total) by mouth 2 (two) times a day Therapy completed 01/19/2023 07/04/2023 documented as of this encounter Care Teams Pmo Lead Relationship Specialty Start Date End Date Rox Bustillo NP [address] [address] PCP - General Family Medicine 04/21/21 No, Physician 01/10/17 documented as of this encounter
--- OUTSIDE RECORDS SUMMARY | 2024-06-13 23:56 | XMS_ITS | Encounter Summary ---
Author Organization [facility] Address [address] [place] [address] Phone Care Team Providers Care Hooker Laster Name Role Phone No, Physician Unavailable Rox Bustillo NP Primary Care Provider Reason for Visit * Reason Comments Skin Exam Spot on scalp * Consultation (Routine) - Authorized Specialty Diagnoses / Procedures Referred By Guillaume fabian Referred To Contact Dermatology Diagnoses Disorder of the skin and subcutaneous tissue, unspecified Rox Bustillo NP [address] [address] Phone: tel: fax: [facility] [address] [place] [address] Health [address] [place] [phone] Phone: tel: fax: Referral ID Status Reason Start Date Expiration Date Visits Requested Visits Authorized [id number] Authorized Specialty Services Required 09/20/2023 10/19/2024 99 99 Encounter Details Date Type Department Care Team (Late st Contact Info) Description 11/23/2023 2:15 PM CDT Office Visit [facility] [address] [place] [address] Outpatient Health [address] [place] [phone] [place] [address] [place] [address] Neoplasm of uncertain behavior of skin Social History Tobacco Use Types Packs/Day Years [...] week 01/18/2023 How often do you attend oriental orthodox or catholic serv ices? 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 Dermatology Clinic Note CC: spot on scalp HPI: Maeve Ross is a 23 y.o. female with no history of skin cancer who presents for eval of spot on scalp. Today she reports Spot on scalp x 15 years, getting bigger, busting open Also history of sun hugo as a kid, wants to know if any moles look like cancer Personal history of skin cancer: no Family history of melanoma: no Tanning bed use: yes, fewer than 50 times Otherwise, she has not noticed any non-healing sores, new/changing moles, or rashes. Other History: Past Medical History: has a past medical history of Anemia, Hypertension, Obesity, Ovarian cyst, and Sleep apnea. Social History: reports that she has never smoked. She has been exposed to tobacco smoke. She has never used smokeless tobacco. She reports that she does not use drugs. Medications: has a current medication list which includes the following prescription(s): medroxyprogesterone (PROVERA), metoprolol xl (TOPROL-XL), multivit-min/iron/folic acid/k, phentermine (ADIPEX-P), tirzepatide (weight loss) (ZEPBOUND), topiramate (TOPAMAX), and triamterene-hydrochlorothiazide ( MAXZIDE,DYAZIDE). Allergies: Allergies Allergen Reactions Penicillins Hives and Swelling Other personal, family, and social history reviewed and noncontributory unless noted in HPI. ROS: Other than described in HPI, denies any new sores, bleeding lesions, fever, unintentional weight loss. PHYSICAL EXAM: GENERAL: Well-developed and well-nourished. No acute distress. NEURO: Alert and oriented x3. PSYCH: Appropriate affect. SKIN: Fleshy pedunculated papule left posterior scalp Trunk and extremities with numerous tiny bartlett-colored macules Pigmented firm papule with pigment asymmetry on left back Otherwise: FACE: No abnormalities noted. EARS: No abnormalities noted. SCALP/HAIR: No abnormalities noted. EYES/EYELIDS: No scleral icterus. No abnormalities noted of conjunctiva or eyelids. LIPS: No abnormalities noted. NECK: No abnormalities noted. ASSESSMENT AND PLAN: Neoplasm unspecified behavior - Uncertain Prognosis - Dx: soft fibroma, nevus - Location: left posterior scalp - Biopsy done per procedure note below. - Wound care reviewed with patient. - Follow-up per path. Discussed possible treatment options - Risks and benefits were discussed including, but not limited to, scarring, bleeding, infection, pain, and swelling. PROCEDURE: Shave Biopsy x 1 DESCRIPTION OF PROCEDURE: Informed consent was obtained, including discussion of risks including bleeding, scarring, infection, and recurrence/persistence. Parker Protocol Time-Out performed. The lesionals areas were prepped with hibiclens prior to infiltration with 1% lidocaine with epinephrine, 1:100,000 x 3ml. The lesions were biopsied with a Dermablade. Hemostasis was obtained with aluminum chloride and firm pressure. The specimen(s) were placed in formalin and sent for routine histopathological evaluation. There were no complications. The wounds were then dressed with sterile petrolatum and a sterile dressing. Wound care instructions were provided in verbal and written form including a 24-hour contact number in case of emergency. The patient will be notified. Neoplasm unspecified behavior - Uncertain Prognosis - Dx: r/o atypia vs dermatofibroma - Location: left upper back - Biopsy done per procedure note below. - Wound care reviewed with patient. - Follow-up per path. Discussed possible treatment options - Risks and benefits were discussed including, but not limited to, scarring, bleeding, infection, pain, and swelling. PROCEDURE: Shave Biopsy x 1 DESCRIPTION OF PROCEDURE: Informed consent was obtained, including discussion of risks including bleeding, scarring, infection, and recurrence/persistence. Parker Protocol Time-Out performed. The lesionals areas were prepped with hibiclens prior to infiltration with 1% lidocaine with epinephrine, 1:100,000 x 3ml. The lesions were biopsied with a Dermablade. Hemostasis was obtained with aluminum chloride and firm pressure. The specimen(s) were placed in formalin and sent for routine histopathological evaluation. There were no complications. The wounds were then dressed with sterile petrolatum and a sterile dressing. Wound care instructions were provided in verbal and written form including a 24-hour contact number in case of emergency. The patient will be notified. RTC per path Julien Spangler MD, COREY Dermatology Resident, PGY-3 November 23, 2023 Cosigned by Celeste De La Rosa MD at 11/26/2023 11:56 AM CDT Associated attestation - Celeste De La Rosa MD - 11/26/2023 11:56 AM CDT I have seen and examined the patient. I agree with the findings and plan of care as documented in the resident/fellow's note. I was present for the bxs documented in this encounter Plan of Treatment Scheduled Orders Name Type Priority Associated Diagnoses Orde r Schedule Surgical pathology Pathology and Cytology Routine Neoplasm of uncertain behavior of skin Expected: 11/23/2023, Expires: 11/22/2024 documented as of this encounter Results * Surgical pathology (11/23/2023 12:00 AM CDT) Tissue (Skin, shave biopsy) 11/23/2023 11/26/2023 5:36 AM CDT [facility] - 11/28/2023 4:37 PM CDT EPIC results best viewed via link to PDF [facility] [address] [place], [place] [address]vivien., ??[address] [place] [address] ? [email or web address] Note to Patients: ??This report may contain a detailed description of human tissue sent by a health care provider to the laboratory for pathologic evaluation. ??The content of this report is essential for diagnosis and may provide important critical findings. ??This information may be unfamiliar to patients to review without a medical professional present. ?? It is advised that the patient review this report in the presence of a health care provider who can answer questions and explain the details. FINAL REPORT Patient Information: PATIENT NAME: ??MAEVE ROSS D. ? SEX: ??F ? : ??2000 (Age: 23) ? Specimen Information: COLLECTED: ??11/23/2023 ? RECEIVED: ??11/26/2023 ? REPORTED: ??11/28/2023 ? Submitting Physician Information: Celeste De La Rosa M.D. [address] [place] [address]), [address] [place], [place] ??[address], ? DERMATOPATHOLOGY REPORT RESULTS ?? DIAGNOSIS: A. ??SKIN, LEFT POSTERIOR SCALP, SHAVE BIOPSY: ? COMPOUND MELANOCYTIC NEVUS ?? B. ??SKIN, LEFT UPPER BACK, SHAVE BIOPSY: ? DERMATOFIBROMA exr/ajrr By this signature, I attest that the above diagnosis is based upon my personal examination of the slides(and/or other material indicated in the diagnosis). Jamin Patrick M.D. ?? Report Electronically Reviewed and Signed Out By ??Jamin Patrick M.D. 11/28/2023 16:37:16 CLINICAL INFORMATION A. R/O SOFT FIBROMA, NEVUS B. NEVUS VS DF R/O ATYPIA ?? SPECIMEN DATA MICROSCOPIC DESCRIPTION: A. Enlarged monomorphous melanocytes are arranged as solitary units and nests at the dermo-epidermal junction and as uniform nests, cords and strands within the dermis. (D22.9) B. There is a proliferation of spindle and stellate cells that are arranged in fascicles between thickened collagen bundles. (D23.9) GROSS DESCRIPTION: A. Received in a formalin-containing bottle is a superficial fragment of pale bartlett, rubbery, and hair-bearing skin measuring 1.4 by 1.0 by 0.6 cm. The surgical margin is inked blue. The specimen is sectioned into 4 pieces and submitted entirely in a single cassette. Due to shrinkage, measurements may be different than those at time of procedure. B. Received in a formalin-containing bottle is a superficial fragment of pale bartlett, finely scaling, and semi-translucent skin measuring 0.6 by 0.6 by 0.1 cm. The surgical margin is inked blue. The specimen is sectioned into 3 pieces and submitted entirely in a single cassette. Due to shrinkage, measurements may be different than those at the time of procedure. jason/dxv ICD-9 ZSD.501 ZSD.407 ? Clerical Data A; 83872 B; 37955 The characteristics of special, immunohistochemical, and immunofluorescence stains and in-situ hybridization tests performed by the [facility] were deemed acceptable in ongoing clinical quality analyst measures and in compliance with regulations drawn from the Clinical Laboratory Improvement Act xg9883 (CLIA '88). Control reactions for all stains performed were deemed adequate and appropriate by a pathologist prior to evaluation of patient tissue. Some diagnoses were rendered with the assistance of laboratory-developed tests utilizing analyte-specific reagents; the performance characteristic of these tests were determined by [facility] and are not cleared or approved by the [place] Food an Drug administration. Laboratory developed test may only be performed in a facility that is certified by the [facility] as a high-complexity laboratory under CLIA '88. These tests are used for clinical purposes and are not investigational. Celeste De La Rosa MD LAB PATHOLOGY ORDERABLES Fi nal Result [facility] [address] [place] [id number] documented in this encounter Visit Diagnoses Diagnosis Neoplasm of uncertain behavior of skin Neoplasm of uncertain behavior of skin documented in this encounter Orders Outpatient Referral Count Last Ordered Date st Ordered Date AMB REFERRAL TO DERMATOLOGY 11/23/2023 documented in this encounter Care Teams Hooker Laster Relationship Specialty Start Date End Date Rox Bustillo NP [address] [address] PCP - General Family Medicine 04/21/21 No, Physician 01/10/17 documented as of this encounter
--- OUTSIDE RECORDS SUMMARY | 2024-06-13 23:56 | XMS_ITS | Encounter Summary ---
Author Organization [facility] Address [address] [place] [address] Phone Care Team Providers Care Supervisor Laboratory Name Role Phone No, Physician Unavailable Rox Bustillo NP Primary Care Provider + [phone] Encounter Details Date Type Department Care Team (Late st Contact Info) Description 10/11/2023 Telephone [facility] Minimally Invasive Surgery [address] [place] [address] Medical Office [address] [place] [address] Silva Chavez Social History Tobacco Use Types Packs/Day Years [...] week 01/18/2023 How often do you attend evangelical or jainism serv ices? 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 Her surgeon instructed her to hold off on scheduling with our office until she is past one year post op from her surgery which will be in January. Will send the revision packet to her in the mean time. documented in this encounter Plan of Treatment Not on file documented as of this encounter Visit Diagnoses Not on filedocumented in this encounter Care Teams Supervisor Laboratory Relationship Specialty Start Date End Date Rox Bustillo NP [address] [address] PCP - General Family Medicine 04/21/21 No, Physician 01/10/17 documented as of this encounter
--- OUTSIDE RECORDS SUMMARY | 2024-06-13 23:56 | XMS_ITS | Encounter Summary ---
Author Organization [facility] Address [address] [place] [address] Phone Care Team Providers Care Licensed Nuclear Control Room Operator Name Role Phone No, Physician Unavailable Rox Bustillo NP Primary Care Provider + [phone] Encounter Details Date Type Department Care Team (Late st Contact Info) Description 11/26/2023 Orders Only [facility] OUTREACH [address] [place] [address] Celeste De La Rosa MD [address] [facility] [address] [place] [address] Neoplasm of uncertain behavior of skin [...] week 01/18/2023 How often do you attend baptist or christian serv ices? 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 No further treatment needed. documented in this encounter Plan of Treatment Not on file documented as of this encounter Procedures Procedure Name Priority Date/Time Associated Diagnosis Comments SURGICAL PATHOLOGY Routine 11/23/2023 12 :00 AM CDT Neoplasm of uncertain behavior of skin documented in this encounter Results * Surgical pathology (11/23/2023 12:00 AM CDT) Tissue (Skin, shave biopsy) 11/23/2023 11/26/2023 5:36 AM CDT [facility] DERMATOP[facility] - 11/28/2023 4:37 PM CDT EPIC results best viewed via link to PDF [facility] Dermatopathology Center [facility] ??[address] [place] [address] ? [email or web address] Note to Patients: ??This report may contain [...] REPORT Patient Information: PATIENT NAME: ??MAEVE ROSS ? SEX: ??F ? : ??2000 (Age: 23) ? Specimen Information: COLLECTED: ??11/23/2023 ? RECEIVED: ??11/26/2023 ? REPORTED: ??11/28/2023 ? Submitting Physician Information: Celeste De La Rosa M.D. [address] [facility], [address] [place] [id number], ? DERMATOPATHOLOGY REPORT RESULTS ?? DIAGNOSIS: A. [...] ICD-9 ZSD.501 ZSD.407 ? Clerical Data A; 81697 B; 52443 The characteristics of special, immunohistochemical, and immunofluorescence stains and in-situ hybridization tests performed by the [facility] Dermatopathology Center were deemed acceptable in ongoing quality assurance assessor measures and in compliance with regulations drawn from the Clinical Laboratory Improvement Act er1655 (CLIA '88). Control reactions for all stains performed were deemed adequate and appropriate by a pathologist prior to evaluation of patient tissue. Some diagnoses were rendered with the assistance of laboratory-developed tests utilizing analyte-specific reagents; the performance characteristic of these tests were determined by [facility] and are not cleared or approved by the [place] Food an Drug administration. Laboratory developed test may only be performed in a facility that is certified by the [facility] as a high-complexity laboratory under CLIA '88. These tests are used for clinical purposes and are not investigational. Celeste De La Rosa MD LAB PATHOLOGY ORDERABLES Fi nal Result DERMATOPATHOLOGY CENTER [address] [place] [address] documented in this encounter Visit Diagnoses Diagnosis Neoplasm of uncertain behavior of skin documented in this encounter Orders Lab Orders Without Results Count Last Ordered D ate First Ordered Date SURGICAL PATHOLOGY 1 11/26/2023 documented in this encounter Care Teams Licensed Nuclear Control Room Operator Relationship Specialty Start Date End Date Rox Bustillo NP [address] [address] PCP - General Family Medicine 04/21/21 No, Physician 01/10/17 documented as of this encounter
--- OUTSIDE RECORDS SUMMARY | 2024-06-13 23:56 | XMS_ITS | Encounter Summary ---
Author Organization [facility] Address [address] [facility] [address] [place] [address] Phone Care Team Providers Care President And Ceo Name Role Phone No, Physician Unavailable Rox Bustillo NP Primary Care Provider [phone] Reason for Visit * Reason Onset Date Comments Scheduling Appointments 11/12/2023 Encounter Details Date Type Department Care Team (Late st Contact Info) Description 11/12/2023 Telephone [facility] Advanced Medicine ([facility]) - [facility] Minimally Invasive Surgery [address] [facility] Advanced Medicine 12th Floor, [place] [address] Derek Goyal MD [address] [facility] [id number] [place] [address] Scheduling Appointments Social History Tobacco Use Types Packs/Day Years [...] week 01/18/2023 How often do you attend druze or christianity serv ices? 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 No What is the patient's ask or need?: Patient called and is inquiring if they can get a revision doneand if there is availability. What is the best number for them to contact for a call back: [phone] documented in this encounter Plan of Treatment Not on file documented as of this encounter Visit Diagnoses Not on filedocumented in this encounter Care Teams President And Ceo Relationship Specialty [place] [address] [place] [address] PCP - General Family Medicine 04/21/21 No, Physician 01/10/17 documented as of this encounter
--- OUTSIDE RECORDS SUMMARY | 2024-06-13 23:56 | XMS_ITS | Encounter Summary ---
Author Organization [facility] Address [address] [place] [address] Care Team Providers Care Painter Foreman Name Role Phone No, Physician Unavailable Rox Bustillo NP Primary Care Provider Encounter Details Date Type Department Care Team (Late st Contact Info) Description 01/22/2024 Orders Only [facility] [address] [facility] [address] [place] [id number] Hortencia Castro NP [address] [facility] [address] [place] [address] S/P gastric sleeve procedure (Primary Dx); BMI 45.0-49.9, adult (HCC) Social History Tobacco Use Types [...] week 01/18/2023 How often do you attend synagogue or mandaeism serv ices? Never 01/18/2023 Do you belong to any clubs o r organizations such as synagogue groups, unions, fraternal or athletic groups, or [...] staff should administer the PHQ-9) 0 01/18/2023 [facility] - Occupational Stress Questionnaire Answer [...] money to buy more. Never true 01/19/20 Within the past 12 months, t he [...] place to sleep or slept in a penitentiary (including now)? 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 Pollard to Dr. Goyal for revision surgery. documented in this encounter Plan of Treatment Not on file documented as of this encounter Visit Diagnoses Diagnosis S/P gastric sleeve procedure- Primary BMI 45.0-49.9, adult (HCC) documented in this encounter Care Teams Painter Foreman Relationship Specialty Start Date End Date Rox Bustillo NP [address] [address] PCP - General Family Medicine 04/21/21 No, Physician 01/10/17 documented as of this encounter
--- OUTSIDE RECORDS SUMMARY | 2024-06-13 23:56 | XMS_ITS | Encounter Summary ---
Author Organization [facility] Address [address] [place] [address] Care Team Providers Care Bicycle Rental Clerk Name Role Phone No, Physician Unavailable Rox Bustillo NP Primary Care Provider [phone] Encounter Details Date Type Department Care Team (Latest Contact Info) Description 07/16/2023 8:29 AM CERTIFIED BREASTFEEDING EDUCATOR - 07/16/2023 11:59 PM [facility] Hospital Encounter [facility] Nutrition and Diabetic Education [address] [facility] [address] [place] [address] Fields, Yareli Lechuga, RD [address] [place] [address] Discharge Disposition: Discharge to home or self [...] week 01/18/2023 How often do you attend buddhism or mormon serv ices? Never 01/18/2023 Do you belong to any clubs o r organizations such as buddhism groups, unions, fraternal or athletic groups, or [...] staff should administer the PHQ-9) 0 01/18/2023 [facility] Occupat ional Health - Occupational [...] place to sleep or slept in a custodial (including now)? No 01/18/2023 Personal Safety Answer Date Recorded Have you ever been in or are you currently in a harmful physical or emotional relationship or is someone making you feel afraid or unsafe? 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 Sex Female 8:56 PM CERTIFIED BREASTFEEDING EDUCATOR Gender Identity Not on file Sexual Orientation Not on file documented as of this encounter Last Filed Vital Signs Vital Sign Reading Time Taken Comments Blood Pressure - - Pulse - - Temperature - - Respiratory Rate - - Oxygen Saturation - - Inhaled Oxygen Concentration - - Weight - - Height 165.1 cm (5' 5 ) 07/16/2023 10:48 AM CERTIFIED BREASTFEEDING EDUCATOR Body Mass Index - - documented in this encounter Medications at Time [...] mouth daily before breakfast 90 tablet 07/04/2023 4 documented as of this encounter Discharge Disposition Disposition Code Departure Means Destination Discharge to home or self care documented in this encounter Progress Notes * Yareli Fields, RD - 07/16/2023 8:30 AM CST Outpatient Nutrition Counseling Assessment Patient Name: Maeve Ross : 2000 Sex: female Encounter Date: 07/16/2023 Time Calculation (min): 30 min Visit #: [address] Rosario to nutrition counseling for Morbid Obesity/ S/P Bariatric Gastric Sleeve. She has a past medical history of Anemia, Hypertension, Obesity, Ovarian cyst, and Sleep apnea. Assessment: Pt reports she started Phentermine 37.5 mg and has dropped 11 lbs/ week. She follow up with Dr Rajendra Guardado. She has increased her exercise to walk ing on the treadmill at 3.5 at 2.5 incline- 4 days/week.. She has began lifting weights and doing leg presses. Pt is drinking 3 protein shakes/day. Pt to f/u in one month. Diet Recall: Breakfast: Protein drink 30 grams protein. And decaf coffee. Lunch: protein drink (30 gms pro) Dinner: protein drink Snacks:cottage cheese Beverages: coffee, protein shake, water. Personal Goals: lose more weight Support System: family Barriers to change: none Exercise: walking on treadmill, lifting weights. Anthropometrics: Ht 165.1 cm (5' 5 ) BMI 46.05 kg/m?? IBW/kg (Calculated) : 56.7 kg. Today's weight = 274.8 lbs. Wt Readings from Last 3 Encounters: [...] triamterene-hydroCHLOROthiazide 37.5-25 mg per tablet Food/Medication interactions: yes MVI use: no Lab Results Component Value Date HGBA1C 5.2 11/14/2022 Lab Results Component Value Date CHOL 163 11/14/2022 HDL 43 11/14/2022 TRIG 169 (H) 11/14/2022 CREATININE 0.62 01/18/2023 BUNSER 9 01/18/2023 SODIUM 137 01/18/2023 POTASSIUM 4.2 01/18/2023 PHOS 2.8 01/18/2023 Nutritional Needs and Diagnosis: Careplan 1 Nutrition Diagnosis 1: Food and nutrition-related knowledge deficit Related to: Food choices Evidenced by: Patient interview, Physical finding, Weight loss Nutritional Needs: Kcal/kg: (900-1000 calories) Total Protein Estimated Needs (gm): 124.65 Protein Needs Based on g/k.0 Total Daily Carbohydrates Recommended (gm): 90 Total Fat Estimated Needs (gm): 0 Fat Needs Based on % of Calories: 20 Total Fluid Estimated Needs: 0 Fluid Needs Based on : 1 ml/kcal [...] ordering kids or lunch meals, and asking fast food server for to-go box at beginning of meal. Discussed choosing lean protein and opting for unsaturated fats over saturated fats. Encouraged Maeve Ross to incorporate physical activity as permitted by MD with overall goal of 150 minutes per week. Patient Center Goals: lose weight 3-5 lbs/month. Monitoring/Evaluation: Weigh in Evaluation of Learning: Pt Maeve Ross needs further instruction and needs review/assistance Pt is in Action stage of change. Expect adherence to recommendations to be good. Pt to follow up in 4-6 weeks for support/reinforcement. Communication sent to referring provider with education provided and desired outcomes Yareli Fields RDN, LDN. IFIED BREASTFEEDING EDUCATOR documented in this encounter Plan of Treatment Not on file documented as of this encounter Visit Diagnoses Not on filedocumented in this encounter Care Teams Bicycle Rental Clerk Relationship Specialty Start Date End Date Rox Bustillo NP [address] [address] PCP - General Family Medicine 04/21/21 No, Physician 01/10/17 documented as of this encounter
--- OUTSIDE RECORDS SUMMARY | 2024-06-13 23:56 | XMS_ITS | Encounter Summary ---
Author Organization [facility] Address [address] [place] [address] Care Team Providers Care Supervisor Rough End Name Role Phone No, Physician Unavailable Rox Bustillo NP Primary Care Provider Encounter Details Date Type Department Care Team (Latest Contact Info) Description 09/05/2023 8:30 AM CDT - 09/05/2023 11:59 PM CDT Hospital Encounter [facility] Nutrition and Diabetic Education 1 [facility] [address] [place] [address] Fields, Yareli Lechuga, RD [address] [place] [address] Discharge Disposition: Discharge to home or self [...] week 01/18/2023 How often do you attend mu-ism or episcopal serv ices? Never 01/18/2023 Do you belong to any clubs o r organizations such as mu-ism groups, unions, fraternal or athletic groups, or [...] staff should administer the PHQ-9) 0 01/18/2023 [facility] of Occupat ional Health - Occupational Stress [...] place to sleep or slept in a retirement (including now)? No 01/18/2023 Personal Safety Answer Date Recorded Have you ever been in or are you currently in a harmful physical or emotional relationship or is someone making you feel afraid or unsafe? 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 Gender Identity Not on file Sexual Orientation Not on file documented as of this encounter Last Filed Vital Signs Vital Sign Reading Time Taken Comments Blood Pressure - - Pulse - - Temperature - - Respiratory Rate - - Oxygen Saturation - - Inhaled Oxygen Concentration - - Weight - - Height 165.1 cm (5' 5 ) 09/05/2023 3:27 PM CDT Body Mass Index - - documented in [...] Progress Notes * Yareli Fields, RD - 09/05/2023 8:30 AM CDT Outpatient Nutrition Counseling Assessment Patient Name: Maeve Ross : 2000 Sex: female Encounter Date: 09/05/2023 Time Calculation (min): 30 min Visit #: [address] Rosario to nutrition counseling for S/p Bariatric Gastric Sleeve Surgery/ MorbidObesity . She has a past medical history of Anemia, Hypertension, Obesity, Ovarian cyst, and Sleep apnea. Assessment: Pt alone for nutritional counseling. Today's weight is 266 lbs. This is a 2.4 lb wt loss/ 2 weeks. Pt reports she is eating more now. She lose more weight when she drinks the protein shakes throughout each day. She notices when she eat more and decrease drinking protein shakes -her weight loss is less. She goes to the gym 4 times/week for 45 minutes each day. She needs to increase her exercise to 60-90 minutes/day since her po intake is often more than it should be. Pt see's Dr Pollard and takes phentermine, but patient is complaining of her current dosage is not working and need to be increased. Pt may benefit from taking GLP-1. Pt was given September bariatric support group flyer. Food Insecurity Questions: Within the past 12 months, were you worried whether your food would run out before you got money tobuy more? ____ often true ____ sometimes true __x__ never true Within the past 12 months, the food you bought just didn't last and you didn't have money to get more? ____ often true ____ sometimes true __x__ never true Diet Recall: Breakfast: Protein drink, water, SF Coffee Lunch: lunch meat, cheese stick, water. Dinner: pulled pork, corn, dinner roll, water. Snacks: carrots, water, SF popsicle, Beverages: water, premier protein shake. Personal Goals: lose more weight 3-5 lbs/month Support System: family Barriers to change: increased hunger. Exercise: workouts - 4 times/week for 45 minutes. Anthropometrics: Ht 165.1 cm (5' 5 ) BMI 46.05 kg/m?? IBW/kg (Calculated) : 56.7 kg. Today's weight = 260 lbs. Wt Readings from Last 3 Encounters: [...] Food and nutrition-related knowledge deficit Related to: Lack of education Evidenced by: Patient interview Nutritional Needs: Total Kcal/kg Estimated Needs : 1206.57 Kcal/k Total Protein Estimated Needs (gm): 120.66 Protein Needs Based on g/k.0 Total Daily Carbohydrates Recommended (gm): 105 Total Fat Estimated Needs (gm): 26.81 Fat Needs Based on % of Calories: 20 Total Fluid Estimated Needs: 1206.57 Fluid Needs Based on : 1 ml/kcal [...] or lunch meals, and asking windows server administrator for to-go box at beginning of meal. Discussed choosing lean protein and opting for unsaturated fats over saturated fats. Encouraged Maeve Ross to incorporate physical activity as permitted by MD with overall goal of 150 minutes per week. Patient Center Goals: lose weight 3-5 lbs/month. Read labels. Count carb, protein & fat grams. Eat/drink 118 grams protein/day. Measure portion sizes. Keep a food diary. Eat more lean protein/ low carb veggies/ salad. Avoid fried/high fat/high calorie foods. Walk or exercise 4-5 times/week for 60-90 min each. Avoid mindless eating. Avoid eating after 7 pm. Drink 6-8 glasses water/day. F/U with RD as needed. Monitoring/Evaluation: Weekly weigh in Evaluation of Learning: Pt Maeve Ross needs further instruction and needs review/assistance . Pt is in Action stage of change. Expect adherence to recommendations to be good to fair. Pt to follow up in 2-4 weeks for support/reinforcement. Communication sent to referring provider with education provided and desired outcomes Yareli Fields RDN, LDN. documented in this encounter Plan of Treatment Not on file documented as of this encounter Visit Diagnoses Not on filedocumented in this encounter Care Teams Supervisor Rough End Relationship Specialty Start Date End Date Rox Bustillo NP [address] [address] PCP - General Family Medicine 04/21/21 No, Physician 01/10/17 documented as of this encounter
--- OUTSIDE RECORDS SUMMARY | 2024-06-13 23:56 | XMS_ITS | Encounter Summary ---
Author Organization [facility] Healthcare Address [address] [place] [address] Care Team Providers Care Process Automation Engineer Name Role Phone No, Physician Unavailable Rox Bustillo NP Primary Care Provider + [phone] Encounter Details Date Type Department Care Team (Late st Contact Info) Description 01/10/2024 9:00 AM CDT Lab [address] S/P gastric sleeve procedure Social History Tobacco Use Types Packs/Day Years [...] week 01/18/2023 How often do you attend confucianist or christian serv ices? 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 Gender Identity Not on file Sexual Orientation Not on file documented as of this encounter Plan of Treatment Not on file documented as of this encounter Procedures Procedure Name Priority Date/Time Associated Diagnosis Comments EGFR Routine 01/10/2024 9:03 AM CDT S/P gastric sleeve procedure IRON PROFILE W/ IBC Routine 01/10/2024 9 :03 AM CDT S/P gastric sleeve procedure VITAMIN D 25 HYDROXY Routine 01/10/2024 9:03 AM CDT S/P gastric sleeve procedure CBC WITHOUT DIFFERENTIAL Routine 01/10/2024 9:03 AM CDT S/P gastric sleeve procedure VITAMIN B1 Routine 01/10/2024 9:03 AM CDT S/P gastric sleeve procedure HEMOGLOBIN A1C Routine 01/10/2024 9:03 AM CDT S/P gastric sleeve procedure FOLATE Routine 01/10/2024 9:03 AM CDT S/P gastric sleeve procedure VITAMIN B12 Routine 01/10/2024 9:03 AM CDT S/P gastric sleeve procedure BASIC METABOLIC PANEL Routine 01/10/2024 9:03 AM CDT S/P gastric sleeve procedure documented in this encounter Results * eGFR (01/10/2024 9:03 AM CDT) eGFR >90 >=60 mL/min/1. 73 m2 Comment: Interpretive Data Reference Interval Normal ?>/= 90 mL/min/1.73m2 Mildly decreased* ? 60 - 89 mL/min/1.73m2 Mildly to moderately decreased ?45 - 59 mL/min/1.73m2 Moderately to severely decreased ??30 - 44 mL/min/1.73m2 Severely decreased ?15 - 29 mL/min/1.73m2 Kidney Failure ?< 15 ??mL/min/1.73m2 *Relative to young adult level Estimated glomerular filtration rate is determined by the 2020 CKD-EPI equation recommended by the National Kidney Foundation (A Unifying Approach to GFR Estimation: Recommendations of the NKF-ASK Task Force on Reassessing the Inclusion of Race in Diagnosing Kidney Disease, JASN 202). The CKD-EPI equation should not be used for patients with unstable renal function and has not been validated in children and those over 70. Current interpretive data was last reviewed 2021. Blood 01/10/2024 9:03 AM CDT 01/10/2024 11:08 AM CDT us Hortencia Castro NP LAB BLOOD ORDERABLES Final Res ult [id number] ([place]) 1 [facility] Department [place] [address] * (ABNORMAL) CBC without differential (01/10/2024 9:03 AM CDT) WBC 9.7 3.8 - 9.9 K/cumm Hgb 12.7 11.9 - 15.5 g/dL [facility] ([place]) Hct 39.7 35.6 - 45.5 % [facility] ([place]) Plt 258 150 - 400 K/cumm [facility] ([place]) MPV 12.8(H) 9.1 - 12.3 fL [facility] ([place]) RBC 4.86 3.90 - 5.20 M/cumm [facility] ([place]) MCV 81.7 81.3 - 96.4 fL [facility] ([place]) MCH 26.1(L) 27.1 - 33.3 pg [facility] ([place]) MCHC 32.0(L) 32.3 - 35.7 g/dL [facility] ([place]) RDW CV 14.1 11.1 - 14.9 % [facility] ([place]) RDW SD 41.8 35.7 - 48.1 fL [facility] ([place]) NRBC abs 0.00 0.00 - 0.01 K/cumm [facility] ([place]) Blood 01/10/2024 9:03 AM CDT 01/10/2024 11:09 AM CDT us Hortencia Castro NP LAB BLOOD ORDERABLES Final Res ult [facility] ([place]) 1 [facility] Department [place] [address] * Basic metabolic panel (01/10/2024 9:03 AM [...] ([place]) Glucose 84 70 - 199 mg/dL [facility] ([place]) Comment: Interpretive Data Fasting glucose [...] 2022. Calcium 9.0 8.5 - 10.3 mg/dL [facility] ([place]) Blood 01/10/2024 9:03 AM CDT 01/10/2024 11:08 AM CDT us Hortencia Castro BAND DIRECTOR LAB BLOOD ORDERABLES Final Res ult [facility] ([place]) 1 [facility] [employer] [place] [address] * Folate (01/10/2024 9:03 AM CDT) Folic acid 8.1 >=5.0 ng/mL Comment:Slightly Hemolyzed S pecimen. Results may be affected. Blood 01/10/2024 9:03 AM CDT 01/10/2024 11:09 AM CDT Hortencia Castro BAND DIRECTOR LAB BLOOD ORDERABLES Final Res ult [facility] ([place]) 1 [facility] [place] [address] * Iron profile w/ IBC (01/10/2024 9:03 AM CDT) Iron 82 35 - 145 mcg/dL TIBC 339 250 - 400 mcg/dL [facility] Transferrin saturation 24 20 - 50 % [facility] Blood 01/10/2024 9:03 AM CDT 01/10/2024 11:08 AM CDT Hortencia Castro BAND DIRECTOR LAB BLOOD ORDERABLES Final Res ult Performing Organization Address [facility]/ZIP Co de Phone Number [facility] ([place]) [address] [place] [address] * Vitamin D 25 hydroxy (01/10/2024 9:03 AM CDT) [facility] Vitamin D 25-OH 31 30 - 80 ng/mL Blood 01/10/2024 9:03 AM CDT 01/10/2024 11:09 AM CDT Hortencia Castro BAND DIRECTOR LAB BLOOD ORDERABLES Final Res ult Performing Organization Address [facility] de Phone Number [facility] ([place]) [address] [place] [address] * Vitamin B1 (01/10/2024 9:03 AM CDT) [facility] Thiamine (Vit B1) 81 70 - 180 nmol/L [facility] Lab Comment: ADDITIONAL INFORMATION This test was developed and its performance characteristics determined by [facility] in a manner consistent with CLIA requirements. This test has not been cleared or approved by the U.S. Food and Drug Administration. Test Performed by: [facility] - [address] [address] Merchandise Flow Manager: Alo Diaz Ph.D.; CLIA# [id number] Blood 01/10/2024 9:03 AM CDT 01/10/2024 11:03 AM CDT Hortencia Castro BAND DIRECTOR LAB BLOOD ORDERABLES Final Res ult [facility] ([place]) [address] [place] [address] [facility] * Vitamin B12 (01/10/2024 9:03 AM CDT) Vitamin B12 514 230 - 1,250 pg/mL Blood 01/10/2024 9:03 AM CDT 01/10/2024 11:09 AM CDT Hortencia Castro BAND DIRECTOR LAB BLOOD ORDERABLES Final Res ult Performing Organization Address [facility] de Phone Number [facility] ([place]) [address] [place] [address] * Hemoglobin A1c (01/10/2024 9:03 AM CDT) [facility] Hgb A1C 5.2 4.0 - 5.6 % Estimated Average Glucose 103 mg/dL [facility] ([place]) Comment: The ADA recommends reporting an estimated Average Glucose (eAG) with all Hemoglobin A1c results using the equation derived from a study of 507 normal and diabetic adults. ??Minority populations were underrepresented and children were not included. ?? (Diabetes Care 31:4879-2257, 2008). ??The eAG is not equivalent to a fasting glucose. Blood 01/10/2024 9:03 AM CDT 01/10/2024 11:09 AM CDT Hortencia Castro BAND DIRECTOR LAB BLOOD ORDERABLES Final Res ult Performing Organization Address City/[facility]/ZIP Co de Phone Number [facility] ([place]) [address] [place] [address] documented in this encounter Visit Diagnoses Diagnosis S/P gastric sleeve procedure documented in this encounter Care Teams Process Automation Engineer Relationship Specialty [place] [address] [place] [address] PCP - General Family Medicine 04/21/21 No, Physician 01/10/17 documented as of this encounter
--- OUTSIDE RECORDS SUMMARY | 2024-06-13 23:56 | XMS_ITS | Encounter Summary ---
Author Organization [facility] Healthcare Address [address] [place] [address] Care Team Providers Care Tariff Expert Name Role Phone No, Physician Unavailable Rox Bustillo NP Primary Care Provider Encounter Details Date Type Department Care Team (Latest Contact Info) Description 02/20/2024 7:30 AM CDT - 02/20/2024 11:59 PM CDT Hospital Encounter [facility] Nutrition and Diabetic Education 1 [facility] [address] [place] [address] Fields, Yareli Lechuga, RD [address] [place] [address] Discharge Disposition: Discharge to home or self [...] week 01/18/2023 How often do you attend yarsanism or religion serv ices? Never 01/18/2023 Do you belong to any clubs o r organizations such as yarsanism groups, unions, fraternal or athletic groups, or [...] staff should administer the PHQ-9) 0 01/18/2023 [facility] - Occupational [...] place to sleep or slept in a group home (including now)? 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 Gender Identity Not on file Sexual Orientation Not on file documented as of this encounter Medications at Time of Discharge medroxyPROGESTERone (PROVERA) 10 mg tablet 07/05/2022 metoprolol XL (TOPROL-XL) 25 mg extended release tablet Take 1 tablet (25 mg total) by mouth daily 05/15/2022 multivit-min/iron/f olic acid/K (BARIATRIC MULTIVITAMINS ORAL) Take by mouth phentermine (ADIPEX-P) 37.5 mg tabletIndications:A bnormal weight gain,Class 3 severe obesity due to excess calories without serious comorbidity with body mass index (BMI) of 40.0 to 44.9 in adult (HCC) TAKE 1 TABLET(37.5 MG) BY MOUTH DAILY BEFORE BREAKFAST 90 tablet 01/07/2024 triamterene-hydroCH LOROthiazide 37.5-25 mg per tablet TK 1 T PO QD 01/14/2020 ondansetron (ZOFRAN) 4 mg tablet TAKE 1 TABLET(4 MG) BY MOUTH EVERY 6 HOURS FOR UP TO 14 DAYS NEEDED FOR NAUSEA OR VOMITING 30 tablet 01/07/2024 4 documented as of this encounter Discharge Disposition Disposition Code Departure Means Destination Discharge to home or self care documented in this encounter Progress Notes * Yareli Fields, RD - 02/20/2024 7:30 AM CDT Outpatient Nutrition Counseling Assessment Patient Name: Maeve Ross : 2000 Sex: female Encounter Date: 02/20/2024 Time Calculation (min): 60 min Visit #: 15. . Pt referred by Dr Rosario to nutrition counseling for S/P bariatric sleeve surgery/ Morbid Obesity. She has a past medical history of Anemia, Biliary dyskinesia (05/17/2017), Hypertension, Obesity, Ovarian cyst, and Sleep apnea. Assessment: Pt was at her home and this RDN was at her home for our telehealth visit today. Pt reports [id number] lb today. This is a 1 lb weight loss/ month. Pt's goal weight is 170-180 lbs. She reports the Phentermine doesn't work and she remains hungry. Pt often eat fast food and sweets. Pt has resumed exercising at the gym since last week. She walks on the treadmill for 45-60 minutes/ 4 days/week.. Pt is contemplating getting the revision sleeve surgery to increase her amount of weight loss. Reset pouch information was provided and discussed. Much encouragement is needed. Pt to f/u 4-8 weeks. Food Insecurity Questions: Within the past 12 [...] true __x__ never true Diet Recall: Breakfast: coffee. Lunch: water Dinner: stuffed peppers (steak, cheese, peppers) Snacks: none Beverages: protein shake, coffee. Personal Goals: cont losing weight 1-3 lbs/month. Support System: family Barriers to change: needs to remain motivated and continue to exercise Exercise: started back working out at the gym since school resumed last week. Anthropometrics: Ht 165.1 cm (5' 5 ) Wt 116.1 kg (256 lb) BMI 42.60 kg/m?? IBW/kg (Calculated) : 56.7 kg. Today's weight= 256 lb. Wt Readings from Last 3 Encounters: 02/21/24 116.1 kg (256 lb) 01/22/24 116.6 kg (257 lb) 01/10/24 119.2 kg (262 lb 11.2 oz) No results found for: CALCBMI Relevant Medications and Lab Review: HOME MEDICATIONS : medroxyPROGESTERone (PROVERA) 10 mg tablet metoprolol XL (TOPROL-XL) 25 mg extended release tablet multivit-min/iron/folic acid/K (BARIATRIC MULTIVITAMINS ORAL) ondansetron (ZOFRAN) 4 mg tablet phentermine (ADIPEX-P) 37.5 mg tablet triamterene-hydroCHLOROthiazide 37.5-25 mg per tablet Food/Medication interactions: yes- water pills MVI use: yes Lab Results Component Value Date HGBA1C 5.2 01/10/2024 Lab Results Component Value Date CHOL 163 11/14/2022 HDL 43 11/14/2022 TRIG 169 (H) 11/14/2022 CREATININE 0.62 01/10/2024 BUNSER 18 01/10/2024 SODIUM 137 01/10/2024 POTASSIUM 4.2 01/10/2024 PHOS 2.8 01/18/2023 Nutritional Needs and Diagnosis: Careplan 1 Nutrition Diagnosis 1: Food and nutrition-related knowledge deficit Related to: Lack of education Evidenced by: Patient interview, Physical finding Nutritional Needs: Total Kcal/kg Estimated Needs : 1161.21 Kcal/k Total Protein Estimated Needs (gm): 116.12 Protein Needs Based on g/k.0 Total Daily Carbohydrates Recommended (gm): 105 Total Fat Estimated Needs (gm): 25.8 Fat Needs Based on % of Calories: 20 Total Fluid Estimated Needs: 1161.21 Fluid Needs Based on : 1 ml/kcal Intervention: Educated and counseled pt on basics of health and nutrition, how to read nutrition facts labels, mindfulness, meal planning. Pt provided with relevant handouts. Discussed importance of making heart healthy diet choices. Specifically, lowering total fat and saturated fat consumption as well as decreasing sodium in the diet to <2000mg per day. Extensively discussed mindful eating, discussing: Encouraged to slow down meal times by using all of your senses (sight, smell, taste, etc.) avoiding distractions (ex. TV) Identify hunger cues using smaller plates to decrease portions Placing foods/beverages in pantry instead of counter & keep healthier alternatives available toavoid impulse choices Preplan meals away from home by looking at nutrition information online, ordering kids or lunch meals, and asking gravity prospecting observer for to-go box at beginning of meal. Recommended Maeve Ross consume 30-35 grams carbohydrate choices per meal and 5 grams carb choices per meal or per snack. Provided meal plan with example carbohydrate choice serving sizes, protein recommendations 6-10 oz,non starchy vegetable recommendations 3 servings/day, & recommendations for fat intakes 3 servings/day. Discussed choosing lean protein and opting for unsaturated fats over saturated fats. Encouraged Maeve Ross to incorporate physical activity as permitted by MD with overall goal of 240-300 minutes per week. Patient Center Goals: lose weight 3-5 lbs/month. Read labels. Count carb, protein & fat grams. Measure portion sizes. Keep a food diary. Eat more lean protein/ low carb veggies/ salad. Avoid fried/high fat/high calorie foods. Walk or exercise 3-4 times/week for 30 min each. Avoid mindless eating. Avoid eating after 7 pm. Drink 4-6 bottles of water/day. F/U with RD in 4-8 weeks. Monitoring/Evaluation: weekly weigh in Read labels. Count carb, protein & fat grams. Eat/drink 60-80 grams protein/day. Measure portion sizes. Keep a food diary. Eat more lean protein/ low carb veggies/ salad. Avoid fried/high fat/high calorie foods. Walk or exercise 4-5 times/week for 30 min each. Avoid mindless eating. Avoid eating after 7 pm. Drink 6-8 glasses water/day. F/U with RD as needed. Evaluation of Learning: Pt Maeve Ross needs further instruction and needs review/assistance Pt is in Preparation stage of change. Expect adherence to recommendations to be fair. Pt to follow up in one month for support/reinforcement. Communication sent to referring provider with education provided and desired outcomes Yareli Fields RDN, LDN. documented in this encounter Plan of Treatment Not on file documented as of this encounter Visit Diagnoses Not on filedocumented in this encounter Care Teams Tariff Expert Relationship Specialty Start Date End Date Rox Bustillo NP [address] [address] PCP - General Family Medicine 04/21/21 No, Physician 01/10/17 documented as of this encounter
--- OUTSIDE RECORDS SUMMARY | 2024-06-13 23:56 | XMS_ITS | Encounter Summary ---
Author Organization [facility] Healthcare Address [address] [place] [address] Care Team Providers Care Roustabout Pusher Name Role Phone No, Physician Unavailable Rox Bustillo NP Primary Care Provider + [phone] Reason for Visit * Reason Comments Follow up Sleeve FU Encounter Details Date Type Department Care Team ([facility] Contact Info) Description 07/12/2023 9:50 AM RABBLE FURNACE TENDER Office Visit [facility] [address] [facility] [address] [place] [address] Hortencia Castro NP 2 [facility] [address] [place] [address] S/P gastric sleeve procedure (Primary Dx) Social History Tobacco Use Types Packs/Day Years Used Date Smoking Tobacco: Never Passive Smoke Exposure: Past Smokeless Tobacco: Never Tobacco Cessation:Counseling Given: Not [...] week 01/18/2023 How often do you attend judaism or sabianist serv ices? Never 01/18/2023 Do you belong to any clubs o r organizations such as judaism groups, unions, fraternal or athletic groups, or [...] staff should administer the PHQ-9) 0 01/18/2023 [facility] - Occupational Stress Questionnaire Answer Date [...] place to sleep or slept in a fpc (including now)? No 01/18/2023 Personal Safety Answer Date Recorded Have you ever been in or are you currently in a harmful physical or emotional relationship or is someone making you feel afraid or unsafe? 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 Sex Female 8:56 PM RABBLE FURNACE TENDER Gender Identity Not on file Sexual Orientation Not on file documented as of this encounter Last Filed Vital Signs Vital Sign Reading Time Taken Comments Blood Pressure 135/84 07/12/2023 9:54 AM RABBLE FURNACE TENDER Pulse 100 07/12/2023 9:54 AM RABBLE FURNACE TENDER Temperature 36.3 ??C (97.3 ??F) 07/12/2023 9:54 AM CS T Respiratory Rate - - Oxygen Saturation 98% 07/12/2023 9:54 AM RABBLE FURNACE TENDER Inhaled Oxygen Concentration - - Weight 125.5 kg (276 lb 11.2 oz) 07/12/2023 9:54 AM RABBLE FURNACE TENDER Height 165.1 cm (5' 5 ) 07/12/2023 9:54 AM RABBLE FURNACE TENDER Body Mass Index 46.05 07/12/2023 9:54 AM RABBLE FURNACE TENDER documented in this encounter Progress Notes * Hortencia Castro NP - 07/12/2023 9:50 AM CST Images from the original note were not included. Post Op Note Subjective: Patient Name: Maeve Ross Date of Visit: 07/12/2023 HPI: post op Follow up (Sleeve FU) F/u 01/17/23 laparoscopic gastric sleeve. She was not losing weigh well. She was driving through fast food and generally not following the diet. Sent her to Dr. Pollard and she was given Phentermine. Shelost 10 lbs since taking the phentermine X1 week but she feels like she is having some side effectssuch as sweaty palms. Chief Complaint: Follow up (Sleeve FU) Objective: Vitals BP 135/84 (BP Location: Right arm, Patient Position: Sitting) Pulse 100 Temp 36.3 ??C (97.3 ??F) Ht 165.1 cm (5' 5 ) Wt 125.5 kg (276 lb 11.2 oz) SpO2 98% BMI 46.05 kg/m?? Physical Exam Constitutional: The patient is oriented to person, place, and time. They appear well-nourished. No distress. Cardiovascular: Normal rate and regular rhythm. Pulmonary/Chest: Effort normal and breath sounds normal. Abdominal: Soft. Non-tender, well healed. Assessment/Plan Diagnoses and all orders for this visit: S/P gastric sleeve procedure (Primary) Follow up with Dr. Pollard. She is to exercise and follow strict bariatric diet. She will follow up with form presser soon. Continue bariatric support group. F/U 1 month. Hortencia Castro NP LE FURNACE TENDER documented in this encounter Plan of Treatment Not on file documented as of this encounter Visit Diagnoses Diagnosis S/P gastric sleeve procedure- Primary documented in this encounter Care Teams Roustabout Pusher Relationship Specialty Start Date End Date Rox Bustillo NP [address] [address] PCP - General Family Medicine 04/21/21 No, Physician 01/10/17 documented as of this encounter
--- OUTSIDE RECORDS SUMMARY | 2024-06-13 23:56 | XMS_ITS | Encounter Summary ---
Author Organization [facility] Healthcare Address [address] [place] [address] Care Team Providers Care Bill Recapitulation Clerk Name Role Phone No, Physician Unavailable Rox Bustillo NP Primary Care Provider + [phone] Reason for Visit * Reason Onset Date Comments Medical Question/Miscellaneous 11/05/2023 Encounter Details Date Type Department Care Team (Late Contact Info) Description 11/05/2023 Telephone [facility] Medical Group Family Medicine at [address] [place] [address] Gerson Pollard MD [address] [place] [address] Medical Question/Miscellaneous Social History Tobacco Use Types Packs/Day Years [...] week 01/18/2023 How often do you attend presybeterian or anabaptism serv ices? Never 01/18/2023 Do you belong to any clubs o r organizations such as presybeterian groups, unions, fraternal or athletic groups, or [...] staff should administer the PHQ-9) 0 01/18/2023 [facility] - Occupational [...] place to sleep or slept in a halfway (including now)? No 01/18/2023 Personal Safety Answer Date Recorded Have you ever been in or are you currently in a harmful physical or emotional relationship or is someone making you feel afraid or unsafe? 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 Gender Identity Not on file Sexual Orientation Not on file documented as of this encounter Ordered Prescriptions Prescription Sig Dispense Quantity Refills Last Filled Start Date End Date tirzepatide, weight loss, (ZEPBOUND) 2.5 mg/0.5 mL pen injectorIndication s:Class 3 severe obesity due to excess calories with serious comorbidity and body mass index (BMI) of 45.0 to 49.9 in adult (HCC) Inject 0.5 mL (2.5 mg total) under the skin every 7 days 2 mL 11/06/2023 01/10/2024 documented in this encounter Miscellaneous Notes * Telephone Encounter - Kandice Neal MA - 11/08/2023 2:05 PM CDT Sent to plan via cover my meds This was denied, per [place] they do not cover weight loss medications. This medication that the provider is requesting authorization for is not covered by the health plan. Anorexiants, hormone and synthetic substitution, and weight loss agents are considered to be excluded medications. If this is an electronic PA request, please abandon the request.* Mounjaro is only approved for patients with diabetes. Tried to call patient, call would not go through * Telephone Encounter - Minal Martin - 11/08/2023 12:57 PM CDT Call Back Caller???s Concern: Patient called seeking status update on prior auth for zepbound. PRESS OFFBEARER relayed Steve's message awaiting PA to come over. Patient is requesting to please notify her by phone once prior auth is approved/denied. Does message need to be routed? Yes-Action Needed * Telephone Encounter - Joan Mccain RN - 11/06/2023 9:56 AM CDT Ok to order Zepbound per Dr. Pollard Will wait for PA to come over * Telephone Encounter - Raegan Mann - 11/06/2023 9:06 AM CDT Call Back Caller???s Concern: Patient stated she called her insurance company and they stated that they approve Zepbound or Mounjaro. Patient asked which one the provider prefers is best, and then she stated the insurance company will need a Prior Authorization for either of these. Does message need to be routed? Yes-Action Needed * Telephone Encounter - Joan Mccain RN - 11/06/2023 7:49 AM CDT Called and spoke with patient about checking with insurance regarding weight loss injectables. Patient verbalized understanding * Telephone Encounter - Gerson Pollard MD - 11/05/2023 5:11 PM CDT She is on Phentermine and topirmate. Is she referring to injection? Can she check with insurance regarding wegovy, zepbound or saxenda coverage. ? * Telephone Encounter - Lynn Hudson - 11/05/2023 10:32 AM CDT Medical Question/Miscellaneous Caller???s Concern: Patient stated she and Dr. Pollard discussed changing her medication when she returned from vacation. Patient is back and called to check if a new medication will be sent in or if she needs to make an appt. Does message need to be routed? Yes-Action Needed documented in this encounter Plan of Treatment Not on file documented as of this encounter Visit Diagnoses Diagnosis Class 3 severe obesity due to excess calories with serious comorbidity and body mass index (BMI) of 45.0 to 49.9 in adult (HCC)- Primary documented in this encounter Care Teams Bill Recapitulation Clerk Relationship Specialty Start Date End Date Rox Bustillo NP [address] [address] PCP - General Family Medicine 04/21/21 No, Physician 01/10/17 documented as of this encounter
--- OUTSIDE RECORDS SUMMARY | 2024-06-13 23:56 | XMS_ITS | Encounter Summary ---
Author Organization [facility] Healthcare Address [address] [place] [address] Care Team Providers Care Spinner Hydraulic Name Role Phone No, Physician Unavailable Rox Bustillo NP Primary Care Provider + [phone] Reason for Referral * Consultation (Routine) - Closed Specialty Diagnoses / Procedures Referred By Contac t Referred To Contact Minimally Invasive Surgery Diagnoses Abnormal weight gain Class 3 severe obesity due to excess calories without serious comorbidity with body mass index (BMI) of 40.0 to 44.9 in adult (HCC) Gerson Pollard MD [address] [place] [address] Phone: tel: fax: Star Sousa MD [address] [facility] [id number] [place] [address] Phone: tel: fax: Referral ID Status Reason Start Date Expiration Date V isits Requested Visits Authorized [id number] Closed Specialty Services Required 10/03/2023 11/01/2024 1 1 Question Answer Please select the performing region: [facility] (All Locations) [[id number]] To provider: STAR SOUSA [[id number]] # of visits: 1 Reason for Visit * Reason Comments Weight Management Encounter Details Date Type Department Care Team (Late st Contact Info) Description 10/03/2023 10:00 AM CDT Office Visit [facility] Medical Group Family Medicine at [address] [place] [address] Gerson Pollard MD [address] [place] [address] [address] [place] [address] Abnormal weight gain (Primary Dx); Class 3 severe obesity due to excess calories without serious comorbidity with body mass index (BMI) of 40.0 to 44.9 in adult (HCC) Social History Tobacco Use [...] week 01/18/2023 How often do you attend restorationist or alevism serv ices? Never 01/18/2023 Do you belong to any clubs o r organizations such as restorationist groups, unions, fraternal or athletic groups, or [...] PHQ-9) 0 01/18/2023 [facility] - Occupational Stress Questionnaire Answer Date Recorded [...] place to sleep or slept in a fci (including now)? No 01/18/2023 Personal Safety Answer Date Recorded Have you ever been in or are you currently in a harmful physical or emotional relationship or is someone making you feel afraid or unsafe? 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 Gender Identity Not on file Sexual Orientation Not on file documented as of this encounter Last Filed Vital Signs Vital Sign Reading Time Taken Comments Blood Pressure 120/76 10/03/2023 10:05 AM CDT Pulse 78 10/03/2023 10:05 AM CDT Temperature 36.2 ??C (97.2 ??F) 10/03/2023 1 0:05 AM CDT Respiratory Rate 18 10/03/2023 10:0 5 AM CDT Oxygen Saturation 98% 10/03/2023 10: 05 AM CDT Inhaled Oxygen Concentration - - Weight 120.1 kg (264 lb 11.2 oz) 2023 10:05 AM CDT Height 165.1 cm (5' 5 ) 10/03/2023 10:0 5 AM CDT Body Mass Index 44.05 10/03/2023 10:05 AM CDT documented in this encounter Ordered Prescriptions Prescription Sig Dispense Quantity Refills Last Filled Start Date End Date topiramate (TOPAMAX) 50 mg tabletIndications: Abnormal weight gain,Class 3 severe obesity due to excess calories without serious comorbidity with body mass index (BMI) of 40.0 to 44.9 in adult (HCC) Take 1 tablet (50 mg total) by mouth 2 (two) times a day 60 tablet 2 10/03/2023 4 phentermine (ADIPEX-P) 37.5 mg tabletIndications: Weight Loss Management for Obese Patient (BMI >= 30) Take 1 tablet (37.5 mg total) by mouth daily before breakfast 90 tablet 10/03/2023 4 documented in this encounter Progress Notes * Gerson Pollard MD - 10/03/2023 10:00 AM CDT Images from the original note were not included. Visit date: 10/03/2023 Patient ID: Maeve Ross is a 23 y.o. female. Chief Complaint. Chief Complaint Patient presents with Weight Management HPI. Patient is a 23 y.o. female HPI Lifestyle Medicine For Weight Management: Previous Dietary Approaches: Not on any specific Diet LEDA: no Mental Health: Stable Diabetes: No Previous History of Weight Loss Surgery: Gastric Sleeve 01/2023. 333lb. First Visit Date: 07/04/23 First Visit Weight: 286lb 10/03/23: 264lb Dates: Weight (lb) Wt Readings from Last 3 Encounters: 10/03/23 120.1 kg (264 lb 11.2 oz) 07/12/23 125.5 kg (276 lb 11.2 oz) 07/04/23 130.1 kg (286 lb 14.4 oz) Total Weight Loss: 22lb Treatment: Medication: Phentermine Meal Replacement/Delivery: No Specific Diet: Not on any specific Diet Food Diary: No Activity: is walking and [place] [address] Past Medical History: Diagnosis Date Anemia Hypertension [...] Partners: Male Alcohol Use: Not At Risk (10/03/2023) AUDIT-C Frequency of Alcohol Consumption: Never Average [...] Current Medications: Outpatient Encounter Medications as of 10/03/2023 Medication Sig Dispense Refill medroxyPROGESTERone (PROVERA) 10 mg tablet metoprolol XL (TOPROL-XL) 25 mg extended release tablet Take 1 tablet (25 mg total) by mouth daily triamterene-hydroCHLOROthiazide 37.5-25 mg per tablet TK 1 T PO QD [DISCONTINUED] phentermine (ADIPEX-P) 37.5 mg tablet Take 1 tablet (37.5 mg total) by mouth daily before breakfast 90 tablet 0 phentermine (ADIPEX-P) 37.5 mg tablet Take 1 tablet (37.5 mg total) by mouth daily before [id number] tablet 0 topiramate (TOPAMAX) 50 mg tablet Take 1 tablet (50 mg total) by mouth 2 (two) times a day 60 tablet 2 No facility-administered encounter medications on file as of 10/03/2023. Review of Systems: Review of Systems Constitutional: [...] not nervous/anxious and is not hyperactive. BP 120/76 (BP Location: Right arm, Patient Position: Sitting) Pulse 78 Temp 36.2 ??C (97.2 ??F) Resp 18 Ht 165.1 cm (5' 5 ) Wt 120.1 kg (264 lb 11.2 oz) SpO2 98% BMI 44.05 kg/m?? Physical Exam: Physical Exam Constitutional: He [...] Abnormal weight gain (Primary) Comments: Chronic. Uncontrolled. Cont. Phentermine. Start Topiramate. Weight loss surgery Referral. Orders: - Ambulatory referral to Bariatric Surgery; Future - phentermine (ADIPEX-P) 37.5 mg tablet; Take 1 tablet (37.5 mg total) by mouth daily before breakfast - topiramate (TOPAMAX) 50 mg tablet; Take 1 tablet (50 mg total) by mouth 2 (two) times a day Class 3 severe obesity due to excess calories without serious comorbidity with body mass index (BMI) of 40.0 to 44.9 in adult ([facility]) - Ambulatory referral to Bariatric Surgery; Future - phentermine (ADIPEX-P) 37.5 mg tablet; Take 1 tablet (37.5 mg total) by mouth daily before breakfast - topiramate (TOPAMAX) 50 mg tablet; Take 1 tablet (50 mg total) by mouth 2 (two) times a day Recommended aggressive Lifestyle modification and weight loss for improving overall weight related health conditions. Follow up in 1 or 3 months for continuing Lifestyle Medicine education and management visit. Recommend Lifestyle/Nutrition/Weight Loss Seminar on every other Tuesdays @ 5pm. Body mass index is 44.05 kg/m??. BMI Plan: Nutrition/Activities/Behavioral Counseling. Education Provided. Follow up 1-3 months. Gerson Pollard MD documented in this encounter Plan of Treatment Scheduled Referrals Name Type Priority Associated Diagnoses Orde r Schedule Ambulatory referral to Bariatric Surgery Outpatient Referral Routine Abnormal weight gain Class 3 severe obesity due to excess calories without serious comorbidity with body mass index (BMI) of 40.0 to 44.9 in adult ([facility]) Expected: 10/03/2023, Expires: 10/02/2024 documented as of this encounter Visit Diagnoses Diagnosis Abnormal weight gain- Primary Class 3 severe obesity due to excess calories without serious comorbidity with body mass index (BMI) of 40.0 to 44.9 in adult ([facility]) documented in this encounter Discontinued Medications Medication Sig Discontinue Reason Start Date End Da te phentermine (ADIPEX-P) 37.5 mg tabletIndications:Weigh t Loss Management for Obese Patient (BMI >= 30) Take 1 tablet (37.5 mg total) by mouth daily before breakfast Reorder 07/04/2023 10/03/2023 documented as of this encounter Care Teams Spinner Hydraulic Relationship Specialty Start Date End Date Rox Bustillo NP [address] [address] PCP - General Family Medicine 04/21/21 No, Physician 01/10/17 documented as of this encounter
--- OUTSIDE RECORDS SUMMARY | 2024-06-13 23:56 | XMS_ITS | Encounter Summary ---
Author Organization [facility] Healthcare Address [address] [place] [address] Care Team Providers Care Deck Specialist Name Role Phone No, Physician Unavailable Rox Bustillo NP Primary Care Provider Encounter Details Date Type Department Care Team (Latest Contact Info) Description 11/23/2023 9:46 AM CDT - 11/23/2023 11:59 PM CDT Hospital Encounter [facility] Nutrition and Diabetic Education 1 [facility] [address] [place] [address] Fields, Yareli Lechuga, RD [address] [place] [address] Discharge Disposition: Discharge to home or self [...] week 01/18/2023 How often do you attend sabianism or methodist serv ices? Never 01/18/2023 Do you belong to any clubs o r organizations such as sabianism groups, unions, fraternal or athletic groups, or [...] staff should administer the PHQ-9) 0 01/18/2023 [facility] - Occupational [...] place to sleep or slept in a mcfp (including now)? No 01/18/2023 Personal Safety Answer Date Recorded Have you ever been in or are you currently in a harmful physical or emotional relationship or is someone making you feel afraid or unsafe? 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 Gender Identity Not on file Sexual Orientation Not on file documented as of this encounter Last Filed Vital Signs Vital Sign Reading Time Taken Comments Blood Pressure - - Pulse - - Temperature - - Respiratory Rate - - Oxygen Saturation - - Inhaled Oxygen Concentration - - Weight 116.6 kg (257 lb 1.6 oz) 024 12:31 PM CDT Height 165.1 cm (5' 5 ) 11/23/2023 12:3 1 PM CDT Body Mass Index 42.78 11/23/2023 12:31 PM CDT documented in this encounter Medications at Time of Discharge medroxyPROGESTERone (PROVERA) 10 mg tablet 07/05/2022 metoprolol XL (TOPROL-XL) 25 mg extended release tablet Take 1 tablet (25 mg total) by mouth daily 05/15/2022 multivit-min/iron/f olic acid/K (BARIATRIC MULTIVITAMINS ORAL) Take by mouth triamterene-hydroCH LOROthiazide 37.5-25 mg per tablet TK 1 T PO QD 01/14/2020 ondansetron (ZOFRAN) 4 mg tablet Take 1 tablet (4 mg total) by mouth every 6 (six) hours as needed for nausea or vomiting for up to 14 days 30 tablet 01/19/2023 4 phentermine (ADIPEX-P) 37.5 mg tabletIndications:W eight Loss Management for Obese Patient (BMI >= 30) Take 1 tablet (37.5 mg total) by mouth daily before breakfast 90 tablet 10/03/2023 4 tirzepatide, weight loss, (ZEPBOUND) 2.5 mg/0.5 mL pen injectorIndications :Class 3 severe obesity due to excess calories with serious comorbidity and body mass index (BMI) of 45.0 to 49.9 in adult (HCC) Inject 0.5 mL (2.5 mg total) under the skin every 7 days 2 mL 11/06/2023 4 topiramate (TOPAMAX) 50 mg tabletIndications:A bnormal weight gain,Class 3 severe obesity due to excess calories without serious comorbidity with body mass index (BMI) of 40.0 to 44.9 in adult (HCC) Take 1 tablet (50 mg total) by mouth 2 (two) times a day 60 tablet 2 10/03/2023 4 documented as of this encounter Discharge Disposition Disposition Code Departure Means Destination Discharge to home or self care documented in this encounter Progress Notes * Yareli Fields, RD - 11/23/2023 10:00 AM CDT Outpatient Nutrition Counseling Assessment Patient Name: Maeve Ross : 2000 Sex: female Encounter Date: 11/23/2023 Time Calculation (min): 45 min Visit #: [address] Rosario to nutrition counseling for S/P bariatric sleeve surgery/ Morbid Obesity. She has a past medical history of Anemia, Hypertension, Obesity, Ovarian cyst, and Sleep apnea. Assessment: Daughter was present at today's nutritional counseling session. Pt weighed 257.1 lb today. This is a total weight loss of 104.5 lbs since August 2022. This is a 39.2 lb wt loss since getting bariatricsurgery. Pt's goal weight is 170-180 lbs. She reports the Phentermine doesn't work and she remains hungry. Pt may benefit from joining an exercise class or have a workout christy, as constant motivation is needed. Bariatric support group information was given for November's meeting. Food Insecurity Questions: Within the past 12 [...] true __x__ never true Diet Recall: Breakfast: protein shake, coffee. Lunch: none Dinner: none Snacks: none Beverages: protein shake, coffee. Personal Goals: cont losing weight 3-5 lbs/month. Support System: family Barriers to change: needs to remain motivated and continue to exercise Exercise: hasn't been working out at the gym d/t being on vacation Anthropometrics: Ht 165.1 cm (5' 5 ) Wt 116.6 kg (257 lb 1.6 oz) BMI 42.78 kg/m?? IBW/kg (Calculated) : 56.7 kg. Today's weight= 257.1 lb. Wt Readings from Last 3 Encounters: 11/23/23 116.6 kg (257 lb 1.6 oz) 10/09/23 119.2 kg (262 lb 11.2 oz) 10/03/23 120.1 kg (264 lb 11.2 oz) No results found for: CALCBMI Relevant Medications and Lab Review: HOME MEDICATIONS : medroxyPROGESTERone (PROVERA) 10 mg tablet metoprolol XL (TOPROL-XL) 25 mg extended release tablet multivit-min/iron/folic acid/K (BARIATRIC MULTIVITAMINS ORAL) phentermine (ADIPEX-P) 37.5 mg tablet tirzepatide, weight loss, (ZEPBOUND) 2.5 mg/0.5 mL pen injector topiramate (TOPAMAX) 50 mg tablet triamterene-hydroCHLOROthiazide 37.5-25 mg per tablet [...] Related to: Lack of education Evidenced by: Physical finding, Patient interview Nutritional Needs: Total Kcal/kg Estimated Needs : 1166.2 Kcal/k Total Protein Estimated Needs (gm): 116.62 Protein Needs Based on g/k.0 Total Daily Carbohydrates Recommended (gm): 105 Total Fat Estimated Needs (gm): 25.92 Fat Needs Based on % of Calories: 20 Total Fluid Estimated Needs: 1166.2 Fluid Needs Based on : 1 ml/kcal [...] ordering kids or lunch meals, and asking geophysical observer for to-go box at beginning of meal. Recommended Summer D Cody consume 30-35 grams carbohydrate choices per meal and 5 grams carb choices per meal or per snack. Provided meal plan with example carbohydrate choice serving sizes, protein recommendations 6-10 oz,non starchy vegetable recommendations 3 servings/day, & recommendations for fat intakes 3 servings/day. Discussed choosing lean protein and opting for unsaturated fats over saturated fats. Encouraged Summer Abhay Ross to incorporate physical activity as permitted [...] in 4-8 weeks. Monitoring/Evaluation: weekly weigh in Evaluation of Learning: Pt Maeve Ross needs further instruction and needs review/assistance Pt is in Preparation stage of change. Expect adherence to recommendations to be fair. Pt to follow up in one month for support/reinforcement. Communication sent to referring provider with education provided and desired outcomes Yareli Fields, KAILEYN, LDN. documented in this encounter Plan of Treatment Not on file documented as of this encounter Visit Diagnoses Not on filedocumented in this encounter Care Teams Deck Specialist Relationship Specialty Start Date End Date Rox Bustillo NP [address] [address] PCP - General Family Medicine 04/21/21 Tesha, Physician 01/10/17 documented as of this encounter
--- OUTSIDE RECORDS SUMMARY | 2024-06-13 23:56 | XMS_ITS | Encounter Summary ---
Author Organization [facility] Healthcare Address [address] [place] [address] Care Team Providers Care Director Of Loss Prevention Name Role Phone No, Physician Unavailable Rox Bustillo NP Primary Care Provider + [phone] Reason for Visit * Reason Onset Date Comments numbness 10/09/2023 Encounter Details Date Type Department Care Team (Late st Contact Info) Description 10/09/2023 Telephone [facility] Medical Group Family Medicine at [address] [place] [address] Gerson Pollard MD [address] [place] [address] [address] [place] [address] numbness Social History Tobacco Use Types Packs/Day Years [...] week 01/18/2023 How often do you attend denominational or congregational serv ices? 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 No other suggestion. Cont. Phentemibe * Telephone Encounter - Joan Mccain RN - 10/09/2023 4:12 PM CDT Patient called to report numbness and tingling in feet, hands and face since starting the topamax yesterday. I advised her to stop taking. Any other suggestions documented in this encounter Plan of Treatment Not on file documented as of this encounter Visit Diagnoses Not on filedocumented in this encounter Care Teams Director Of Loss Prevention Relationship Specialty Start Date End Date Rox Bustillo NP [address] [address] PCP - General Family Medicine 04/21/21 No, Physician 01/10/17 documented as of this encounter
--- OUTSIDE RECORDS SUMMARY | 2024-06-13 23:56 | XMS_ITS | Encounter Summary ---
Author Organization [facility] Healthcare Address [address] [place] [address] Care Team Providers Care Taxonomist Name Role Phone No, Physician Unavailable Rox Bustillo NP Primary Care Provider [phone] Encounter Details Date Type Department Care Team (Latest Contact Info) Description 01/22/2024 8:30 AM CDT - 01/22/2024 11:59 PM CDT Hospital Encounter [facility] Nutrition and Diabetic Education 1 [facility] [address] [place] [address] Fields, Yareli Lechuga, RD [address] [place] [address] Discharge Disposition: Discharge to home or self [...] week 01/18/2023 How often do you attend sikhism or advent serv ices? 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 Gender Identity Not on file Sexual Orientation Not on file documented as of this encounter Last Filed Vital Signs Vital Sign Reading Time Taken Comments Blood Pressure - - Pulse - - Temperature - - Respiratory Rate - - Oxygen Saturation - - Inhaled Oxygen Concentration - - Weight 116.6 kg (257 lb) 01/22/2024 9:19 AM CDT Height 165.1 cm (5' 5 ) 01/22/2024 9:19 AM CDT Body Mass Index 42.77 01/22/2024 9:19 AM CDT documented in this encounter Medications at [...] Progress Notes * Yareli Fields, RD - 01/22/2024 8:30 AM CDT Outpatient Nutrition Counseling Assessment Patient Name: Maeve Ross : 2000 Sex: female Encounter Date: 01/22/2024 Time Calculation (min): 25 min Visit #: 14. Pt seen via telehealth visit today. Pt referred by Dr Rosario to nutrition counseling for S/P bariatric sleeve surgery/ Morbid Obesity. She has a past medical history of Anemia, Biliary dyskinesia (05/17/2017), Hypertension, Obesity, Ovarian cyst, and Sleep apnea. Assessment: Pt was at her home and this RDN was at her home for our telehealth visit today. Pt reports [id number] lb today. Her weight is stable. She weighed more but has lost weight back to 257 lbs. Pt's goalweight is 170-180 lbs. She reports the Phentermine doesn't work and she remains hungry. Pt has resumed exercising at the gym since last week. She walks on the treadmill for 45-60 minutes. Pt will start lifting lite weights on Bariatric support group information was emailed for January meeting. Pt iscontemplating getting the revision surgery to increase her amount of weight loss. Encouragement is needed. Food Insecurity Questions: Within the past 12 [...] true __x__ never true Diet Recall: Breakfast: yogurt and watermelon, berries or grapes. coffee. Lunch: turkey wrap, water Dinner: stuffed peppers (steak, cheese, peppers) Snacks: none Beverages: protein shake, coffee. Personal Goals: cont losing weight 1-3 lbs/month. Support System: family Barriers to change: needs to remain motivated and continue to exercise Exercise: started back working out at the gym since school resumed last week. Anthropometrics: Ht 165.1 cm (5' 5 ) Wt 116.6 kg (257 lb) BMI 42.77 kg/m?? IBW/kg (Calculated) : 56.7 kg. Today's weight= 257 lb. Wt Readings from Last 3 Encounters: 01/22/24 116.6 kg (257 lb) 01/10/24 119.2 kg (262 lb 11.2 oz) 11/23/23 116.6 kg (257 lb 1.6 oz) No results found for: CALCBMI Relevant [...] Related to: Lack of education Evidenced by: Weight gain Nutritional Needs: Total Kcal/kg Estimated Needs : 1165.74 Kcal/k Total Protein Estimated Needs (gm): 116.57 Protein Needs Based on g/k.0 Total Daily Carbohydrates Recommended (gm): 105 Fat Needs Based on % of Calories: 20 Total Fluid Estimated Needs: 1165.74 Fluid Needs Based on : 1 ml/kcal [...] ordering kids or lunch meals, and asking observer gravity prospecting for to-go box at beginning of meal. Recommended Maeve Blank Cody consume 30-35 grams carbohydrate choices per [...] on filedocumented in this encounter Care Teams Taxonomist Relationship Specialty Start Date End Date Rox Bustillo NP [address] [address] PCP - General Family Medicine 04/21/21 No, Physician 01/10/17 documented as of this encounter
--- OUTSIDE RECORDS SUMMARY | 2024-06-13 23:57 | XMS_ITS | Encounter Summary ---
Author Organization [facility] Healthcare Address [address] [place] [address] Care Team Providers Care Cafeteria Director Name Role Phone No, Physician Unavailable Rox Bustillo NP Primary Care Provider [phone] Encounter Details Date Type Department Care Team (Latest Contact Info) Description 04/18/2023 9:30 AM ENERGY AND CONSERVATION TECHNICIAN - 04/18/2023 11:59 PM [facility] Hospital Encounter [facility] Nutrition and Diabetic Education 1 [facility] [address] [place] [address] Fields, Yareli Lechuga, RD [address] [place] [address] Discharge Disposition: Discharge to home or self [...] How often do you attend buddhism or restoration serv ices? Never 01/18/2023 Do you belong [...] you have a drink containing alcohol? Never 01/17/2023 Q2: How many drinks containi ng alcohol do you have on a typical day when you are drinking? Patient does not drink Q3: How often do you have si x or more drinks on one occasion? Never 01/17/2023 Overall Financial Resource Strain (CARDIA) Answe r Date Recorded How hard is it for you to pa y for the very basics like food, housing, medical care, and heating? Not hard at all 01/18/2023 PHQ-2 Answer Date Recorded PHQ-2 Total Score (If total score is 3 or more points, staff should administer the PHQ-9) 0 01/18/2023 [facility] of Occupat ional Health - Occupational Stress [...] place to sleep or slept in a mcc (including now)? No 01/18/2023 Personal Safety Answer Date Recorded Have you ever been in or are you currently in a harmful physical or emotional relationship or is someone making you feel afraid or unsafe? 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 Sex Female 8:56 PM ENERGY AND CONSERVATION TECHNICIAN Gender Identity Not on file Sexual Orientation Not on file documented as of this encounter Last Filed Vital Signs Vital Sign Reading Time Taken Comments Blood Pressure - - Pulse - - Temperature - - Respiratory Rate - - Oxygen Saturation - - Inhaled Oxygen Concentration - - Weight - - Height 165.1 cm (5' 5 ) 04/18/2023 3:06 PM ENERGY AND CONSERVATION TECHNICIAN Body Mass Index - - documented in this encounter Medications at Time of Discharge medroxyPROGESTER one (PROVERA) 10 mg tablet 07/05/2022 metoprolol XL (TOPROL-XL) 25 mg extended release tablet Take 1 tablet (25 mg total) by mouth daily 05/15/2022 triamterene-hydr oCHLOROthiazide 37.5-25 mg per tablet TK 1 T PO QD 01/14/2020 docusate sodium (Colace) 100 mg capsuleIndicatio ns:constipation Take 1 capsule (100 mg total) by mouth 2 (two) times a day for 14 days 28 capsule 01/19/2023 07/04/2023 famotidine (PEPCID) 20 mg tablet Take 1 tablet (20 mg total) by mouth 2 (two) times a day 60 tablet 11 01/19/2023 07/04/2023 ondansetron (ZOFRAN) 4 mg tablet Take 1 tablet (4 mg total) by mouth every 6 (six) hours as needed for nausea or vomiting for up to 14 days 30 tablet 01/19/2023 01/07/2024 documented as of this encounter Discharge Disposition Disposition Code Departure Means Destination Discharge to home or self care documented in this encounter Progress Notes * Donnie, Yareli Lechuga, RD - 04/18/2023 10:00 AM CST Outpatient Nutrition Counseling Assessment Patient Name: Maeve Ross : 2000 Sex: female Encounter Date: 04/18/2023 Time Calculation (min): 25 min Visit #: [address] Rosario to nutrition counseling for S/P Bariatric Surgery . She has a past medical history of Anemia, Hypertension, Obesity, Ovarian cyst, and Sleep apnea. Assessment: Today's weight was 292 lbs. This is a 4.3 lb wt loss/ 3 weeks. Pt food recall shows not enough protein consumed. RDN has shown different ways to increase protein intake. Protein shakes and shots are needed. Pt walks about 30 minutes daily. Pt to increase exercise by 5 minutes for a month. Bariatric packet #7 was given and discussed. Bariatric support group information for May was given. Pt admit she did not attend this months support group meeting. Ongoing support and motivation is needed Diet Recall: Breakfast: Fruit, lowfat yogurt Lunch: lunchmeat Dinner: Chicken, broccoli, rice. Snacks: cheese stick Beverages: none is shown. Personal Goals: lose 1-5 lbs/month. Support System: family Barriers to change: not eating enough protein. Exercise: walk for 30 minutes/day Anthropometrics: Ht 165.1 cm (5' 5 ) BMI 50.94 kg/m?? IBW/kg (Calculated) : 56.7 kg. Today's weight = 292 lbs. Wt Readings from Last 3 Encounters: 02/27/23 (!) 138.8 kg (306 lb 1.6 oz) 01/25/23 (!) 145 kg (319 lb 9.6 oz) 01/17/23 (!) 151 kg (333 lb) No results found for: CALCBMI Relevant Medications and Lab Review: HOME MEDICATIONS : docusate sodium (Colace) 100 mg capsule famotidine (PEPCID) 20 mg tablet medroxyPROGESTERone (PROVERA) 10 mg tablet metoprolol XL (TOPROL-XL) 25 mg extended release tablet triamterene-hydroCHLOROthiazide 37.5-25 mg per tablet Food/Medication [...] deficit Related to: Food choices, Lack of education, Lack of adherence, Lack of activity Evidenced by: BMI 40 or more, Patient interview, Physical finding Nutritional Needs: Total Kcal/kg Estimated Needs : 1324.5 Kcal/k Total Protein Estimated Needs (gm): 132.45 Protein Needs Based on g/k.0 Total Daily Carbohydrates Recommended (gm): 90 Total Fat Estimated Needs (gm): 29.43 Fat Needs Based on % of Calories: 20 Total Fluid Estimated Needs: 1324.5 Fluid Needs Based on : 1 ml/kcal Intervention: Education given 7th visit: Following bariatric surgery Activity worksheet: 5 ways to move more Nutrition action plan goal list 12-month weight tracker Lifestyle daily tracker [employer] bariatric briseyda cheat sheet to get started Smart goals worksheet Nutrition facts label Weight chart tracker: week 11- month 12 Food journal tracker Bariatric plate method Protein, non-starchy vegetables, fruit, fat, refined carbs, starch, sugar and sweeteners: what's priority in your diet Educated and counseled pt on basics of [...] ordering kids or lunch meals, and asking server systems administrator for to-go box at beginning of meal. Discussed choosing lean protein and opting for unsaturated fats over saturated fats. Encouraged Maeve Ross to incorporate physical activity as permitted by MD with overall goal of 150 minutes per week. Patient Center Goals: lose more weight 1-5 lbs/month. Monitoring/Evaluation: Keep a food diary Weekly weigh ins Evaluation of Learning: Pt Maeve Ross needs further instruction and needs review/assistance Pt is in Action stage of change. Expect adherence to recommendations to be fair. Pt to follow up in June 2023 for support/reinforcement. Communication sent to referring provider with education provided and desired outcomes Yareli Fields RDN, LDN. GY AND CONSERVATION TECHNICIAN GY AND CONSERVATION TECHNICIAN documented in this encounter Plan of Treatment Not on file documented as of this encounter Visit Diagnoses Not on filedocumented in this encounter Care Teams Cafeteria Director Relationship Specialty Start Date End Date Rox Bustillo NP [address] [address] PCP - General Family Medicine 04/21/21 Tesha, Physician 01/10/17 documented as of this encounter
--- OUTSIDE RECORDS SUMMARY | 2024-06-13 23:57 | XMS_ITS | Encounter Summary ---
Author Organization [facility] Healthcare Address [address] [place] [address] Care Team Providers Care Sergeant Missile Crewman Name Role Phone No, Physician Unavailable Rox Bustillo NP Primary Care Provider [phone] Reason for Visit * Consultation (Routine) - Closed Specialty Diagnoses / Procedures Referred By Contac t Referred To Contact Diabetes and Nutrition Services Diagnoses Encounter for nutrition evaluation prior to bariatric surgery Morbid obesity (HCC) Nayan Rosario MD Phone: tel: fax: [address] [address] Referral ID Status Reason Start Date Expiration Date V isits Requested Visits Authorized [id number] Closed Specialty Services Required 08/17/2022 09/16/2023 12 12 Encounter Details Date Type Department Care Team (Latest Contact Info) Description 08/29/2022 7:46 AM CDT - 08/29/2022 11:59 PM CDT Hospital Encounter [facility] Nutrition and Diabetic Education [address] [place] [address] [address] [place] [address] [facility] [place] [address] Discharge Disposition: Discharge to home or self care Social History Tobacco Use Types Packs/Day Years Used Date Smoking Tobacco: Never Smokeless Tobacco: Never Alcohol Use Standard Drinks/Week Comments Yes 0 (1 standard drink = 0.6 oz pur e alcohol) occasional Comments No Sex and Gender Information Value Date Recorded Sex Assigned at Not on file Legal Sex Female 8:56 PM ATHLETIC EQUIPMENT CUSTODIAN Gender Identity Not on file Sexual Orientation Not on file documented as of this encounter Last Filed Vital Signs Vital Sign Reading Time Taken Comments Blood Pressure - - Pulse - - Temperature - - Respiratory Rate - - Oxygen Saturation - - Inhaled Oxygen Concentration - - Weight - - Height 165.1 cm (5' 5 ) 08/29/2022 8:44 AM CDT Body Mass Index - - documented in this encounter Medications at Time of Discharge medroxyPROGESTERone (PROVERA) 10 mg tablet 07/05/2022 metoprolol XL (TOPROL-XL) 25 mg extended release tablet Take 1 tablet (25 mg total) by mouth daily 05/15/2022 triamterene-hydroCHL OROthiazide 37.5-25 mg per tablet TK 1 T PO QD 01/14/2020 clonazePAM (KlonoPIN) 0.25 mg disintegrating tablet Take 1 tablet by mouth 2 (two) times a day 0 09/10/2018 3 HYDROcodone-acetamin ophen (NORCO) 5-325 mg per tabletIndications:Pa in Take 1 tablet by mouth every 6 (six) hours as needed for pain 12 tablet 06/20/2020 3 ibuprofen (ADVIL,MOTRIN) 800 mg tabletIndications:Pa in Take 1 tablet (800 mg total) by mouth 3 (three) times a day 21 tablet 04/24/2020 3 metoclopramide (REGLAN) 10 mg tablet Take 1 tablet q6-8 hrs for naueas, take with 25 mg benadryl 15 tablet 09/25/2018 3 ondansetron ODT (ZOFRAN-ODT) 4 mg disintegrating tablet Dissolve 1 tablet oral every 4 hours as needed for nausea or vomiting. 15 tablet 06/20/2020 3 traMADol (ULTRAM) 50 mg tablet Take 1-2 tablets (50-100 mg total) by mouth every 6 (six) hours as needed for pain (1 tablet for mild to moderate pain or 2 tablets for severe pain) 20 tablet 09/25/2018 3 documented as of this encounter Discharge Disposition Disposition Code Departure Means Destination Discharge to home or self care documented in this encounter Progress Notes * Yareli Fields, RD - 08/29/2022 8:00 AM CDT Outpatient Nutrition Counseling Assessment Patient Name: Maeve Ross : 2000 Sex: female Encounter Date: 08/29/2022 Time Calculation (min): 60 min Visit #: [address] Rosario to nutrition counseling for Morbid Obesity . She has a past medical history of Anemia, Hypertension, Obesity, and Ovarian cyst. Assessment Pt is alone for nutritional counseling. She is 5'5 and weigh 361.6 lbs. Correct portion sizes shown. Food labels read. Pt made a healthy plate for a dinner meal while counting carb grams. Fat & sugar food tubes shown and discussed. Pt walks 3 laps at [employer] three times/week and it takes her about an hour to do it. She attended our August 2022 bariatric support group. Pt given flyer for bariatric support group. Weight loss goal sheet initiated today with this patient choosing 5 goals to work on doing prior to her next follow up visit for nutritional counseling. First bariatricpacket given and discussed. Ongoing education is needed prior to and following bariatric surgery. Diet Recall: Breakfast: Yoruba yogurt, water. Lunch: 2 turkey wraps, water. Dinner: BBQ chicken salad, water. Snacks: no Beverages: water Personal Goals: lose weight Support System: ?? Barriers to change: ? [facility] Anthropometrics: Ht 165.1 cm (5' 5 ) BMI 60.94 kg/m?? IBW/kg (Calculated) : 56.7 kg. Wt= 361.6 lbs. Wt Readings from Last 3 Encounters: 08/17/22 (!) 166.1 kg (366 lb 3.2 oz) 07/20/22 (!) 163.9 kg (361 lb 6.4 oz) 04/21/21 (!) 158.8 kg (350 lb) No results found for: CALCBMI Relevant Medications and Lab Review: HOME MEDICATIONS : clonazePAM (KlonoPIN) 0.25 mg disintegrating tablet HYDROcodone-acetaminophen (NORCO) 5-325 mg per tablet ibuprofen (ADVIL,MOTRIN) 800 mg tablet medroxyPROGESTERone (PROVERA) 10 mg tablet metoclopramide (REGLAN) 10 mg tablet metoprolol XL (TOPROL-XL) 25 mg extended release tablet ondansetron ODT (ZOFRAN-ODT) 4 mg disintegrating tablet traMADol (ULTRAM) 50 mg tablet triamterene-hydroCHLOROthiazide 37.5-25 mg per tablet Food/Medication interactions: na MVI use: no No results found for: HGBA1C Lab Results Component Value Date CREATININE 0.81 04/21/2021 BUNSER 12 04/21/2021 SODIUM 138 04/21/2021 POTASSIUM 3.8 04/21/2021 Nutritional Needs and Diagnosis: Careplan 1 Nutrition Diagnosis 1: Overweight/Obesity Related to: Food choices, Lack of activity, Lack of education Evidenced by: BMI 40 or more, Patient interview, Physical finding Interventions: Education, nutrition, Encouragement, Modify diet Goals: (S) (Lose weight 1-5 lbs/month) Monitoring and Evaluation: Diet-related questions, Plan of care, Weight changes Recommendations: Read labels. Count carb, protein & fat grams. Measure portion sizes. Keep a food diary. Eat more lean protein/ low carb veggies/ salad. Avoid fried/high fat/high calorie foods. Walk or exercise 4 times/week for 60 min each. Avoid mindless eating. Avoid eating after 7 pm. F/U with RD in 4-8 weeks. Nutritional Needs: Total Kcal/kg Estimated Needs : 1804.23 Kcal/k Total Protein Estimated Needs (gm): 164.02 Protein Needs Based on g/k.0 Total Daily Carbohydrates Recommended (gm): 180 Total Fat Estimated Needs (gm): 40.09 Fat Needs Based on % of Calories: 20 Total Fluid Estimated Needs: 1804.23 Fluid Needs Based on : 1 ml/kcal Intervention: Education given 1st visit: Weight Loss Surgery Diet Packet Goals to Prepare for Weight Loss Surgery (updated every visit with 4 more goals added at each visit) Bariatric Shopping Guide List of Assorted Protein Beverages, Cost and Where to Purchase these Products Blank Food & Activity Food Record Educated and counseled pt on basics of [...] ordering kids or lunch meals, and asking service observer for to-go box at beginning of meal. Primary teaching and session discussion focused on basics of health and nutrition, what foods contain carbohydrates, how to read nutrition facts labels, carbohydrate counting, and meal planning. Pt provided with sample meal plan, recipes, grocery shopping list, carbohydrate counting booklet and relevant handouts. Recommended Maeve Ross consume 45 grams carbohydrate choices per meal and 5 grams carb choice plus lean protein and veggies per snack. Provided meal plan with example carbohydrate choice serving sizes, protein recommendations 6-12 oz/day, non starchy vegetable recommendations 3-5 serving/day & recommendations for fat intakes 3 servings/day. Discussed choosing lean protein and opting for unsaturated fats over saturated fats. Encouraged Maeve Ross to incorporate physical activity as permitted by MD with overall goal of 150 minutes per week. Monitoring/Evaluation: Diet. Weight changes. Exercise. Portion sizes. Evaluation of Learning: Pt Maeve Ross needs further instruction and needs review/assistance . Pt is in Contemplation stage of change. Expect adherence to recommendations to be good to fair. Pt to follow up in September 2022 for support/reinforcement. Yareli Fields RDN, LDN documented in this encounter Plan of Treatment Not on file documented as of this encounter Visit Diagnoses Not on filedocumented in this encounter Care Teams Sergeant Missile Crewman Relationship Specialty Start Date End Date Rox Bustillo NP [address] [address] PCP - General Family Medicine 04/21/21 No, Physician 01/10/17 documented as of this encounter
--- OUTSIDE RECORDS SUMMARY | 2024-06-13 23:57 | XMS_ITS | Encounter Summary ---
Author Organization [facility] Healthcare Address [address] [place] [id number] Care Team Providers Care Deputy Fire Marshal Name Role Phone No, Physician Unavailable Rox Bustillo NP Primary Care Provider Reason for Visit * Reason Comments Follow-up Sleeve FU 01/17/23 Encounter Details Date Type Department Care Team (Late st Contact Info) Description 05/01/2023 8:30 AM GANG HEAD SAW OPERATOR Office Visit [facility] [address] [place] [address] [address] [place] [phone] Nayna Rosario MD [address] [place] [address] [address] [place] [address] BMI 45.0-49.9, adult (HCC) (Primary Dx) Social History Tobacco Use Types [...] week 01/18/2023 How often do you attend jain or voodoo serv ices? Never 01/18/2023 Do you belong to any clubs o r organizations such as jain groups, unions, fraternal or athletic groups, or [...] staff should administer the PHQ-9) 0 01/18/2023 [facility] of Occupat ional Health - Occupational Stress [...] on file Legal Sex Female 8:56 PM GANG HEAD SAW OPERATOR Gender Identity Not on file Sexual Orientation Not on file documented as of this encounter Last Filed Vital Signs Vital Sign Reading Time Taken Comments Blood Pressure 121/83 05/01/2023 8:31 AM GANG HEAD SAW OPERATOR Pulse 57 05/01/2023 8:31 AM GANG HEAD SAW OPERATOR Temperature 36.1 ??C (96.9 ??F) 05/01/2023 8:31 AM CS T Respiratory Rate - - Oxygen Saturation 98% 05/01/2023 8:31 AM GANG HEAD SAW OPERATOR Inhaled Oxygen Concentration - - Weight 131.1 kg (289 lb) 05/01/2023 8:31 AM GANG HEAD SAW OPERATOR Height 165.1 cm (5' 5 ) 05/01/2023 8:31 AM GANG HEAD SAW OPERATOR Body Mass Index 48.09 05/01/2023 8:31 AM GANG HEAD SAW OPERATOR documented in this encounter Progress Notes * Nayan Rosario MD - 05/01/2023 8:30 AM CST Progress Note Subjective: HPI: No complaints since last visit. Patient tolerating a diet without nausea or emesis. Denies anypain Objective: Vitals BP 121/83 (BP Location: Left arm, Patient Position: Sitting) Pulse 57 Temp 36.1 ??C (96.9 ??F) Ht 165.1 cm (5' 5 ) Wt 131.1 kg (289 lb) SpO2 98% BMI 48.09 kg/m?? Physical Exam Abdomen: Soft, incisions well healed Assessment/Plan Diagnoses and all orders for this visit: BMI 45.0-49.9, adult (HCC) (Primary) Assessment & Plan: Patient will continue small frequent meals. Continue to encourage protein supplementation. Exerciseas tolerates. Continue to work with the dietitian and attend the monthly support group meetings. Trevor see her back at 3 months. She will call us sooner if anything changes. Nayan Rosario MD 8:42 AM 05/01/2023 HEAD SAW OPERATOR documented in this encounter Miscellaneous Notes * Assessment & Plan Note - Nayan Rosario MD - 05/01/2023 8:42 AM CSTAssociated Problem(s): BMI 45.0-49.9, adult (HCC) Patient will continue small frequent meals. Continue to encourage protein supplementation. Exerciseas tolerates. Continue to work with the dietitian and attend the monthly support group meetings. Trevor see her back at 3 months. She will call us sooner if anything changes. HEAD SAW OPERATOR documented in this encounter Plan of Treatment Not on file documented as of this encounter Visit Diagnoses Diagnosis BMI 45.0-49.9, adult (HCC)- Primary documented in this encounter Care Teams Deputy Fire Marshal Relationship Specialty Start Date End Date Rox Bustillo NP [address] [address] PCP - General Family Medicine 04/21/21 No, Physician 01/10/17 documented as of this encounter
--- OUTSIDE RECORDS SUMMARY | 2024-06-13 23:57 | XMS_ITS | Encounter Summary ---
Author Organization [facility] Healthcare Address [address] [place] [address] Care Team Providers Care Explosives Detonator Name Role Phone No, Physician Unavailable Rox Bustillo NP Primary Care Provider [phone] Reason for Referral * Consultation (Routine) - Authorized Specialty Diagnoses / Procedures Referred By Contac t Referred To Contact Family Medicine Diagnoses BMI 45.0-49.9, adult (HCC) H/O bariatric surgery Nayan Rosario MD Phone: tel: fax: Eleanor Saez MD [facility] [address] [place] [id number] Phone: tel: fax: Referral ID Status Reason Start Date Expiration Date Visits Requested Visits Authorized [id number] Authorized Specialty Services Required 06/20/2023 07/19/2024 1 1 Question Answer Please select the performing region: [facility] [[id number]] To provider: ELEANOR SAEZ [[id number]] # of visits: 1 ING RINK MANAGER Encounter Details Date Type Department Care Team (Late Contact Info) Description 06/20/2023 Orders Only [facility] [address] [facility] [address] [place] [id number] Nayan Rosario MD [address] [place] [address] [address] [place] [address] H/O bariatric surgery (Primary Dx); BMI 45.0-49.9, adult (HCC) Social [...] week 01/18/2023 How often do you attend protestant or taoism serv ices? Never 01/18/2023 Do you belong to any clubs o r organizations such as protestant groups, unions, fraternal or athletic groups, or [...] staff should administer the PHQ-9) 0 01/18/2023 [facility] - Occupational Stress Questionnaire Answer Date Recorded [...] place to sleep or slept in a prison (including now)? No 01/18/2023 Personal Safety Answer Date Recorded Have you ever been in or are you currently in a harmful physical or emotional relationship or is someone making you feel afraid or unsafe? 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 Sex Female 8:56 PM SKATING RINK MANAGER Gender Identity Not on file Sexual Orientation Not on file documented as of this encounter Plan of Treatment Scheduled Referrals Name Type Priority Associated Diagnoses Order Schedule Ambulatory referral to Internal Medicine Outpatient Referral Routine BMI 45.0-49.9, adult (HCC) H/O bariatric surgery Expected: 07/04/2023 (Approximate), Expires: 06/20/2024 documented as of this encounter Visit Diagnoses Diagnosis H/O bariatric surgery- Primary BMI 45.0-49.9, adult (HCC) documented in this encounter Care Teams Explosives Detonator Relationship Specialty Start Date End Date Rox Bustillo NP [address] [address] PCP - General Family Medicine 04/21/21 No, Physician 01/10/17 documented as of this encounter
--- OUTSIDE RECORDS SUMMARY | 2024-06-13 23:57 | XMS_ITS | Encounter Summary ---
Author Organization [facility] Address [address] [facility] [place] [address] Care Team Providers Care Commercial Art Instructor Name Role Phone No, Physician Unavailable Rox Bustillo NP Primary Care Provider Reason for Visit * Reason Comments Obesity Bariatric # 6 Last w eight 350.lb 11/14/22 Encounter Details Date Type Department Care Team (Late st Contact Info) Description 12/12/2022 10:20 AM CDT Office Visit [facility] [address] [facility] [address] [place] [phone] Nayan Rosario MD [address] [place] [address] [address] [place] [address] BMI 45.0-49.9, adult (HCC) (Primary Dx) Social History Tobacco Use Types Packs/Day Years Used Date Smoking Tobacco: Never Smokeless Tobacco: Never Tobacco Cessation:Counseling Given: Not Answered Alcohol Use Standard Drinks/Week Comments Yes 0 (1 standard drink = 0.6 oz pur e alcohol) occasional AUDIT-C Answer Date Recorded Q1: How often do you have a drink containing alc ohol? Monthly or less 11/13/2022 Q2: How many drinks containi ng alcohol do you have on a typical day when you are drinking? 1 or 2 11/13/2022 Q3: How often do you have si x or more drinks on one occasion? 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 Gender Identity Not on file Sexual Orientation Not on file documented as of this encounter Last Filed Vital Signs Vital Sign Reading Time Taken Comments Blood Pressure 150/94 12/12/2022 10:04 AM CDT Pulse 89 12/12/2022 10:04 AM CDT Temperature 36.1 ??C (96.9 ??F) 12/12/2022 1 0:04 AM CDT Respiratory Rate - - Oxygen Saturation 97% 12/12/2022 10: 04 AM CDT Inhaled Oxygen Concentration - - Weight 155.6 kg (343 lb 1.6 oz) 023 10:04 AM CDT Height 165.1 cm (5' 5 ) 12/12/2022 10:0 4 AM CDT Body Mass Index 57.09 12/12/2022 10:04 AM CDT documented in this encounter Progress Notes * Nayan Rosario MD - 12/12/2022 10:20 AM CDT Progress Note Subjective: HPI: The patient has done well having lost 7 lb since last visit. Chief complaint: Morbid obesity Objective: Vitals BP 150/94 (BP Location: Right arm, Patient Position: Sitting) Pulse 89 Temp 36.1 ??C (96.9 ??F) Ht 165.1 cm (5' 5 ) Wt (!) 155.6 kg (343 lb 1.6 oz) SpO2 97% BMI 57.09 kg/m?? Physical Exam Abdomen: Soft, obese Assessment/Plan Diagnoses and all orders for this visit: BMI 45.0-49.9, adult (HCC) (Primary) Assessment & Plan: The patient has done well during her six-month time having lost around 20 lb. We have given her thepreop diet and gone over instructions of starting this 2 weeks prior. In the meantime she will continue to attend the monthly support group meetings. She will continue to work with the dietitian. We will encourage her to continue with a cardiovascular regimen shooting for 30 minutes 3 times a week.We will submit everything to insurance now. Once we have the approval we will call her back with the date. She is in understanding of the plan. Nayan Rosario MD 10:19 AM 12/12/2022 documented in this encounter Miscellaneous Notes * Assessment & Plan Note - Nayan Rosario MD - 12/12/2022 10:19 AM CDTAssociated Problem(s): BMI 45.0-49.9, adult (HCC) The patient has done well during her six-month time having lost around 20 lb. We have given her thepreop diet and gone over instructions of starting this 2 weeks prior. In the meantime she will continue to attend the monthly support group meetings. She will continue to work with the dietitian. We will encourage her to continue with a cardiovascular regimen shooting for 30 minutes 3 times a week.We will submit everything to insurance now. Once we have the approval we will call her back with the date. She is in understanding of the plan. documented in this encounter Plan of Treatment Not on file documented as of this encounter Visit Diagnoses Diagnosis BMI 45.0-49.9, adult (HCC)- Primary documented in this encounter Care Teams Commercial Art Instructor Relationship Specialty Start Date End Date Rox Bustillo NP [address] [address] PCP - General Family Medicine 04/21/21 No, Physician 01/10/17 documented as of this encounter
--- OUTSIDE RECORDS SUMMARY | 2024-06-13 23:57 | XMS_ITS | Encounter Summary ---
Author Organization [facility] Healthcare Address [address] [place] [address] Care Team Providers Care Washroom Attendant Name Role Phone No, Physician Unavailable Rox Bustillo NP Primary Care Provider Encounter Details Date Type Department Care Team (Latest Contact Info) Description 07/02/2023 9:00 AM LEGAL RESEARCHER - 07/02/2023 11:59 PM [facility] Hospital Encounter [facility] Nutrition and Diabetic Education [address] [facility] [address] [place] [address] Fields, Yareli Lechuga, [address] [place] [address] Discharge Disposition: Discharge to home or self [...] week 01/18/2023 How often do you attend yazidism or anglican serv ices? Never 01/18/2023 Do you belong to any clubs o r organizations such as yazidism groups, unions, fraternal or athletic groups, or [...] staff should administer the PHQ-9) 0 01/18/2023 [facility] of [facility] - Occupational Stress [...] place to sleep or slept in a [place] facility (including now)? No 01/18/2023 Personal Safety Answer Date Recorded Have you ever been in or are you currently in a harmful physical or emotional relationship or is someone making you feel afraid or unsafe? 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 She has a past medical history of Anemia, Hypertension, Obesity, Ovarian cyst, and Sleep apnea. Assessment: Pt reports she is sticking to her diet plan now. Her weigh is 285.8 lbs. She is losing inches. Thisis .5 lb wt loss/ 12 days. Pt reports having a scheduled weight loss session with Dr orourke in [place], [place]. She has already attended the 1.5 hour seminar. She is going to the gym and walking about 45 minutes at 3.0 speed at 2.5 incline. Pt to f/u in 2-3 weeks. Diet Recall: Breakfast: core power protein shake Lunch: core power protein shake Dinner: core power protein shake Snacks: SF jello, sF popsicle, water with protein Beverages: water, core power protein shake Personal Goals: lose 3-5 lbs/month Support System: family Barriers to change: motivation ?? Exercise: recently started going to the gym Anthropometrics: Ht 165.1 cm (5' 5 ) BMI 47.74 kg/m?? IBW/kg (Calculated) : 56.7 kg. Today's weight = 285.8 lbs Wt Readings from Last 3 Encounters: 07/04/23 130.1 kg (286 lb 14.4 oz) 05/01/23 131.1 kg (289 lb) 02/27/23 (!) 138.8 kg (306 lb 1.6 oz) No results found for: [...] deficit Related to: Food choices, Lack of education Evidenced by: Patient interview Nutritional Needs: Total Kcal/kg Estimated Needs : 1296.38 Kcal/k Total Protein Estimated Needs (gm): 129.64 Protein Needs Based on g/k.0 Total Fat Estimated Needs (gm): 28.81 Fat Needs Based on % of Calories: 20 Total Fluid Estimated Needs: 1296.38 Fluid Needs Based on : 1 ml/kcal [...] ordering kids or lunch meals, and asking fine dining server for to-go box at beginning of meal. Discussed choosing lean protein and opting for unsaturated fats over saturated fats. Encouraged Maeve Ross to incorporate physical activity as permitted by MD with overall goal of 150 minutes per week. Patient Center Goals: lose more weight 3-5 lbs/month Recommendations: Read labels. Count carb, protein & fat grams. Eat/drink 130 grams protein/day. Measure portion sizes. Keep a food diary. Eat more lean protein/ low carb veggies/ salad. Avoid fried/high fat/high calorie foods. Walk or exercise 4-5 times/week for 60-90 min each. Avoid mindless eating. Avoid eating after 7 pm. Drink 6-8 glasses water/day. F/U with RD as needed. Monitoring/Evaluation: Weekly weigh ins Evaluation of Learning: Pt Maeve Ross needs further instruction and needs review/assistance Pt is in Preparation stage of change. Expect adherence to recommendations to be fair. Pt to follow up in 2-3 weeks for support/reinforcement. Communication sent to referring provider with education provided and desired outcomes Yareli Fields RDN, LDN. L RESEARCHER documented in this encounter Plan of Treatment Not on file documented as of this encounter Visit Diagnoses Not on filedocumented in this encounter Care Teams Washroom Attendant Relationship Specialty Start Date End Date Rox Bustillo NP [address] [address] PCP - General Family Medicine 04/21/21 No, Physician 01/10/17 documented as of this encounter
--- OUTSIDE RECORDS SUMMARY | 2024-06-13 23:57 | XMS_ITS | Encounter Summary ---
Author Organization [facility] Healthcare Address [address] [place] [address] Care Team Providers Care Dishwashing Machine Operator Name Role Phone No, Physician Unavailable Rox Bustillo NP Primary Care Provider [phone] Reason for Visit * Auth/Cert (Routine) Specialty Diagnoses / Procedures Referred By Contac t Referred To Contact Diagnoses Heartburn Heartburn [R12] Procedures [place] EGD TRANSORAL BIOPSY SINGLE/MULTIPLE ESOPHAGOGASTRODUODENOSCOPY Referral ID Status Reason Start Date Expiration Date Visits Re quested Visits Authorized [id number] 1 1 Encounter Details Date Type Department Care Team (Latest Contact Info) Description 11/14/2022 1:00 PM CDT - 11/14/2022 1:20 PM CDT Surgery [facility] Digestive [facility] [address] [place] [address] Nayan Rosario MD [address] [place] [id number] ESOPHAGOGASTRODUODENOSCOPY BIOPSY Surgery Details Date/Time Status Location OR Service Patient Class Case Cl ass Case Type Trauma Case? 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 APPRAISER Gender Identity Not on file Sexual Orientation Not on file documented as of this encounter Last Filed Vital Signs Vital Sign Reading Time Taken Comments Blood Pressure 127/88 11/14/2022 11:46 AM CDT Pulse 64 11/14/2022 11:46 AM CDT Temperature 36.5 ??C (97.7 ??F) 11/14/2022 11:46 AM C DT Respiratory Rate 16 11/14/2022 11:46 AM CDT Oxygen Saturation 99% 11/14/2022 11:46 AM CDT Inhaled Oxygen Concentration - - Weight 158.8 kg (350 lb) 11/14/2022 11:46 AM CDT Height 165.1 cm (5' 5 ) 11/14/2022 11:46 AM CDT Body Mass Index 58.24 11/14/2022 11:46 AM CDT documented in this encounter Medications at Time of Discharge medroxyPROGESTERo ne (PROVERA) 10 mg tablet 07/05/2022 metoprolol XL (TOPROL-XL) 25 mg extended release tablet Take 1 tablet (25 mg total) by mouth daily 05/15/2022 triamterene-hydro CHLOROthiazide 37.5-25 mg per tablet TK 1 T PO QD 01/14/2020 documented as of this encounter Discharge Disposition Disposition Code Departure Means Destination Comment s Discharge to home or self care documented in this encounter H&P Notes * Nayan Rosario MD - 11/14/2022 1:13 PM CDT I have reviewed the H&P, examined the patient, and endorse the findings as written. Plan of Care : Based on the above findings, I consider Maeve Ross to be an acceptable risk for :Procedure(s): ESOPHAGOGASTRODUODENOSCOPY Source Note - Nayan Rosario MD - 11/14/2022 8:20 AM CDT Progress Note Subjective: HPI: No acute events since last visit Chief complaint: Morbid obesity Objective: Vitals BP 134/84 (BP Location: Right arm, Patient Position: Sitting) Pulse 87 Temp 36.2 ??C (97.1 ??F) Ht 165.1 cm (5' 5 ) Wt (!) 158.8 kg (350 lb) SpO2 96% BMI 58.24 kg/m?? Physical Exam Abdomen: Soft, obese Assessment/Plan Diagnoses and all orders for this visit: BMI 45.0-49.9, adult (HCC) (Primary) Assessment & Plan: Continue small frequent meals. Continue to work with the dietitian. Exercise as tolerates. We will follow back up with her next month. Nayan Rosario MD 8:45 AM 11/14/2022 documented in this encounter Procedure Notes * Nayan Rosario MD - 11/14/2022 1:17 PM CDTAssociated Order(s): [facility] Patient Name: Maeve Ross Procedure Date: 11/14/2022 1:17 PM Date of : 2000 Admit Type: Outpatient Age: 22 Gender: Female Attending MD: Nayan Rosario M.D. Room: [facility] ENDOSCOPY ROOM 2 Note Status: Finalized Patient Profile: This is a 22 year old female. Procedure: Upper GI endoscopy Indications: Heartburn Referring MD: Adam Carlson Providers: Nayan Rosario M.D. Impression: - Z-line regular, 37 cm from the incisors. - Normal examined duodenum. - Normal stomach. Biopsied. Recommendation: - Discharge patient to home. - Resume previous diet. - Continue present medications. - Await pathology results. Medicines: Propofol per Anesthesia Complications: No immediate complications. Estimated Blood Loss: Estimated blood loss was minimal. Procedure: Pre-Anesthesia Assessment: - Prior to the procedure, a History and Physical was performed, and patient medications and allergies were reviewed. The patient's tolerance of previous anesthesia was also reviewed. The risks and benefits of the procedure and the sedation options and risks were discussed with the patient. All questions were answered, and informed consent was obtained. Prior Anticoagulants: The patient has taken no anticoagulant or antiplatelet agents. ASA Grade Assessment: III - A patient with severe systemic disease. After reviewing the risks and benefits, the patient was deemed in satisfactory condition to undergo the procedure. The benefits, risks, and alternatives to the procedure and sedation were discussed and informed consent was obtained. The scope was passed under direct vision. The Endoscope [id number]-H190 [id number] was introduced through the mouth, and advanced to the second part of duodenum. The upper GI endoscopy was accomplished without difficulty. The patient tolerated the procedure well. Findings: The Z-line was regular and was found 37 cm from the incisors. The examined duodenum was normal. The entire examined stomach was normal. Biopsies were taken with a cold forceps for Helicobacter pylori testing using CLOtest. Verification of patient identification for the specimen was done by the nurse using the patient's name and date. Estimated blood loss was minimal. Nayan Rosario M.D. 11/14/2022 1:43:07 PM Number of Addenda: 0 Note Initiated On: 11/14/2022 1:17 PM Procedure Code(s): --- Professional --- 76071, Esophagogastroduodenoscopy, flexible, transoral; with biopsy, single or multiple --- Technical --- 60541, Esophagogastroduodenoscopy, flexible, transoral; with biopsy, single or multiple Diagnosis Code(s): --- Professional --- R12, Heartburn --- Technical --- R12, Heartburn CPT copyright 2020 [employer]. All rights reserved. The codes documented in this report are preliminary and upon flight communications operator review may be revised to meet current compliance requirements. Recognized by the [place] [employer] for promoting quality in endoscopy documented in this encounter Miscellaneous Notes * Perioperative Nursing Note - Heam Quinn RN - 11/14/2022 2:[address] Rosario spoke with the patient about the procedure. Patient is to follow up in his office as scheduled. documented in this encounter Plan of Treatment Not on file documented as of this encounter Procedures Procedure Name Priority Date/Time Associated Diagnosis Comments H. PYLORI UREASE SCREEN (GARY TEST) STAT 11/14/2022 3:40 PM CDT ESOPHAGOGASTRODUODENOSCOPY BIOPSY 11/14/2022 1:17 PM CDT Heartburn EGD 11/14/2022 1:17 PM CDT POCT HCG, URINE Routine 11/14/2022 12:09 PM CDT documented in this encounter Results * H. pylori urease screen (GARY test) Tissue (11/14/2022 3:40 PM CDT) H. pylori, rapid (GARY) Negative Negative MICHEAL ARCHULETA (KYLE) Tissue 11/14/2022 3:40 PM CDT 11/15/2022 6:17 AM CDT us Nayan Rosario MD LAB MICROBIOLOGY - GENERAL ORDERABLES Final Result MICHEAL ARCHULETA (CAT[place]) 1 [facility] [place] [address] * EGD (11/14/2022 1:17 PM CDT) Anatomical Region Laterality Modality Other Narrative Procedure Note Nayan Rosario MD - 11/14/2022 1:17 PM CDT [facility] Patient Name: [facility] Procedure Date: 11/14/2022 1:17 PM Date of : 2000 Admit Type: Outpatient Age: 22 Gender: Female Attending MD: Nayan Rosario M.D. Room: [facility] ENDOSCOPY ROOM 2 Note Status: Finalized Patient Profile: This is a 22 year old female. Procedure: Upper GI endoscopy Indications: Heartburn Referring MD: Adam Carlson Providers: Nayan Rosario M.D. Impression: - Z-line regular, 37 cm from the incisors. - Normal examined duodenum. - Normal stomach. Biopsied. Recommendation: - Discharge patient to home. - Resume previous diet. - Continue present medications. - Await pathology results. Medicines: Propofol per Anesthesia Complications: No immediate complications. Estimated Blood Loss: Estimated blood loss was minimal. Procedure: Pre-Anesthesia Assessment: - Prior to the procedure, a History and Physicalwas performed, and patient medications and allergieswere reviewed. The patient's tolerance of previous anesthesia was also reviewed. The risks andbenefits of the procedure and the sedation options and risks were discussed with the patient. All questions were answered, and informed consent was obtained. Prior Anticoagulants: The patient has taken noanticoagulant or antiplatelet agents. ASA Grade Assessment: III -A patient with severe systemic disease. Afterreviewing the risks and benefits, the patient was deemed in satisfactory condition to undergo the procedure. The benefits, risks, and alternatives to theprocedure and sedation were discussed and informed consentwas obtained. The scope was passed under direct vision. The Endoscope GIF-H190 [id number] was introduced through the mouth, and advanced to the second partof duodenum. The upper GI endoscopy was accomplished without difficulty. The patient tolerated the procedure well. Findings: The Z-line was regular and was found 37 cm from the incisors. The examined duodenum was normal. The entire examined stomach was normal. Biopsies were taken with acold forceps for Helicobacter pylori testing using CLOtest. Verificationof patient identification for the specimen was done by the nurse usingthe patient's name and date. Estimated blood loss was minimal. Nayan Rosario M.D. 11/14/2022 1:43:07 PM Number of Addenda: 0 Note Initiated On: 11/14/2022 1:17 PM Procedure Code(s): --- Professional --- 14577, Esophagogastroduodenoscopy, flexible, transoral; with biopsy, single or multiple --- Technical --- 11199, Esophagogastroduodenoscopy, flexible, transoral; with biopsy, single or multiple Diagnosis Code(s): --- Professional --- R12, Heartburn --- Technical --- R12, Heartburn CPT copyright 2020 [employer] [employer]. All rights reserved. The codes documented in this report are preliminary and upon flight communications operator reviewmay be revised to meet current compliance requirements. Recognized by the [place] [employer] for promoting quality in endoscopy Nayan Rosario MD ENDOSCOPY PROCED URES Final Result * POCT hCG, urine (11/14/2022 12:09 PM CDT) HCG, ur, POC Negative Lot Number [id number] QC Backgroud Clear Acceptable QC Control Line Acceptable Urine 11/14/2022 12:0 9 PM CDT Nayan Rosario MD POINT OF CARE TE ST ORDERABLES Final Result documented in this encounter Visit Diagnoses Diagnosis Heartburn- Primary Heartburn documented in this encounter Admitting Diagnoses Diagnosis Heartburn documented in this encounter Administered Medications Inactive Administered Medications - up to 3 most recent administrations Medication Order MAR Action Action Date Dose Rate Site ondansetron (ZOFRAN) injection 4 mg 4 mg, intravenous, Administer over 2 Minutes, Every 30 min PRN, nausea, vomiting, Starting on Sun11/14/22 at 1154, For 2 doses, Recovery (GI), Indications: Nausea and VomitingIndications:Nausea and Vomiting sodium chloride 0.9% infusion 30 mL/hr, intravenous, Continuous, Starting on Sun11/14/22 at 1230, Pre-Procedure (GI) New Bag 11/14/2022 12:23 PM CDT 30 mL/hr 30 mL/hr sodium chloride 0.9% infusion 125 mL/hr, intravenous, Continuous, Starting on Sun11/14/22 at 1230, Recovery (GI) New Bag 11/14/2022 1:22 PM CDT documented in this encounter Discontinued Medications Medication Sig Discontinue Reason Start Date End Da te clonazePAM (KlonoPIN) 0.25 mg disintegrating tablet Take 1 tablet by mouth 2 (two) times a day Therapy completed 09/10/2018 11/14/2022 HYDROcodone-acetaminophen (NORCO) 5-325 mg per tabletIndications:Pain Take 1 tablet by mouth every 6 (six) hours as needed for pain Therapy completed 06/20/2020 11/14/2022 ibuprofen (ADVIL,MOTRIN) 800 mg tabletIndications:Pain Take 1 tablet (800 mg total) by mouth 3 (three) times a day Therapy completed 04/24/2020 11/14/2022 metoclopramide (REGLAN) 10 mg tablet Take 1 tablet q6-8 hrs for naueas, take with 25 mg benadryl Therapy completed 09/25/2018 11/14/2022 ondansetron ODT (ZOFRAN-ODT) 4 mg disintegrating tablet Dissolve 1 tablet oral every 4 hours as needed for nausea or vomiting. Therapy completed 06/20/2020 11/14/2022 TiZANidine (ZANAFLEX) 4 mg capsule Take 1 capsule (4 mg total) by mouth 3 (three) times a day Therapy completed 11/13/2022 11/14/2022 traMADol (ULTRAM) 50 mg tablet Take 1-2 tablets (50-100 mg total) by mouth every 6 (six) hours as needed for pain (1 tablet for mild to moderate pain or 2 tablets for severe pain) Therapy completed 09/25/2018 11/14/2022 documented as of this encounter Active and Recently Administered Medications Times are shown in CDT. Continuous Medication Order 11/12/2022 11/13/2022 11/14/2022 sodium chloride 0.9% infusion 30 mL/hr, intravenous, Continuous, Starting on Sun11/14/22 at 1230, Pre-Procedure (GI) 1223 (New Bag - Prov ider: Hema Quinn RN)1820 (Due: Stopped) sodium chloride 0.9% infusion 125 mL/hr, intravenous, Continuous, Starting on Sun11/14/22 at 1230, Recovery (GI) 1322 (New Bag - Prov ider: Katja Tovar Jr., MD)1334 (Stopped - Provider: Katja Tovar Jr., MD) PRN Medication Order 11/12/2022 11/13/2022 11/14/2022 ondansetron (ZOFRAN) injection 4 mg 4 mg, intravenous, Administer over 2 Minutes, Every 30 min PRN, nausea, vomiting, Starting on Sun11/14/22 at 1154, For 2 doses, Recovery (GI), Indications: Nausea and Vomiting documented in this encounter Orders Medications Ordered That Ed ht Not Have Been Administered Count Last Ordered Date First Ordered Date ondansetron (ZOFRAN) injection 4 mg 1 11/14 sodium chloride 0.9% infusion 1 11/14/2022 documented in this encounter Care Teams Dishwashing Machine Operator Relationship Specialty Start Date End Date Rox Bustillo NP [address] [address] PCP - General Family Medicine 04/21/21 No, Physician 01/10/17 documented as of this encounter
--- OUTSIDE RECORDS SUMMARY | 2024-06-13 23:57 | XMS_ITS | Encounter Summary ---
Author Organization [facility] Medical Group Address [address] [place] [address] Care Team Providers Care Senior Java Programmer Analyst Name Role Phone No, Physician Unavailable Rox Bustillo NP Primary Care Provider [phone] Reason for Referral * Consultation (Routine) - Closed Specialty Diagnoses / Procedures Referred By Contac t Referred To Contact Diabetes and Nutrition Services Diagnoses Encounter for nutrition evaluation prior to bariatric surgery Morbid obesity (HCC) Nayan Rosario MD Phone: tel: fax: [facility] [address] [place] [address] Referral ID Status Reason Start Date Expiration Date V isits Requested Visits Authorized [id number] Closed Specialty Services Required 08/17/2022 09/16/2023 12 12 Question Answer [id number] Initial / Annual Follow-up MNT Please select the performing region: [facility] [144] # of visits: 10 Comments Please schedule initial visit in September Encounter Details Date Type Department Care Team (Late st Contact Info) Description 08/17/2022 Orders Only [facility] [address] [facility] [address] [place] [phone] Nayan Rosario MD [address] [place] [address] [address] [place] [address] Encounter for nutrition evaluation prior to bariatric surgery (Primary Dx); Morbid obesity (CMS/HCC) (HCC) Social History Tobacco Use Types Packs/Day Years Used Date Smoking Tobacco: Never Smokeless Tobacco: Never Alcohol Use Standard Drinks/Week Comments Yes 0 (1 standard drink = 0.6 oz pur e alcohol) occasional Comments No Sex and Gender Information Value Date Recorded Sex Assigned at Not on file 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 Gender Identity Not on file Sexual Orientation Not on file documented as of this encounter Plan of Treatment Scheduled Referrals Name Type Priority Associated Diagnoses Order Schedule Ambulatory referral to Nutrition Services Outpatient Referral Routine Encounter for nutrition evaluation prior to bariatric surgery Morbid obesity (CMS/HCC) (HCC) Expected: 08/31/2022 (Approximate), Expires: 08/18/2023 documented as of this encounter Visit Diagnoses Diagnosis Encounter for nutrition evaluation prior to bariatric surgery- Primary Morbid obesity (HCC) Morbid obesity documented in this encounter Care Teams Senior Java Programmer Analyst Relationship Specialty Start Date End Date Rox Bustillo NP [address] [address] PCP - General Family Medicine 04/21/21 No, Physician 01/10/17 documented as of this encounter
--- OUTSIDE RECORDS SUMMARY | 2024-06-13 23:57 | XMS_ITS | Encounter Summary ---
Author Organization [facility] Medical Group Address [address] [address] Care Team Providers Care Residential Sales Associate Name Role Phone No, Physician Unavailable Damian Verde NP Primary Care Provider [phone] Reason for Visit * Reason Onset Date Comments Covid-19 Home Monitoring 06/21/2020 enrollm ent Encounter Details Date Type Department Care Team (Late st Contact Info) Description 06/21/[address] 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/ COVID-19 home monitoring program. The patient was contacted via phone for enrollment in the program, but could not be reached to accept or decline. Next program call due: 06/22 E ERECTOR SUPERVISOR * Telephone Encounter - Archana Vila. - 06/21/2020 9:48 AM CST COVID Home Monitoring Enrollment - No Response This patient was identified as a candidate for the [facility]/ COVID-19 home monitoring program. The patient was contacted via phone for enrollment in the program, but could not be reached to accept or decline. Next program call due: today E ERECTOR SUPERVISOR documented in this encounter Plan of Treatment Not on file documented as of this encounter Visit Diagnoses Not on filedocumented in this encounter Additional Health Concerns Infection Onset Date Last Indicated Resolved Time COVID19 Comment:Added from the Screening question BPA, identifying patients that tested positive for COVID in the last 14 days and the result is from a facility outside [facility] . 06/06/2020 06/20/2020 07/04/2020 3:05 AM FENCE ERECTOR SUPERVISOR documented as of this encounter Care Teams Residential Sales Associate Relationship Specialty Start Date End Date Damian Verde NP [address] [facility] [address] [place] [address] [address] PCP - General 04/24/20 04/20/21 No, Physician 01/10/17 documented as of this encounter
--- OUTSIDE RECORDS SUMMARY | 2024-06-13 23:57 | XMS_ITS | Encounter Summary ---
Author Organization [facility] Medical Group Address [address] [place] [address] Care Team Providers Care Cork Floor Installer Name Role Phone No, Physician Unavailable Rox Bustillo NP Primary Care Provider [phone] Reason for Visit * Reason Comments Bariatric 2 Bariatric 2 Encounter Details Date Type Department Care Team ([facility] Contact Info) Description 08/17/2022 9:25 AM CDT Office Visit [facility] [address] [facility] [address] [place] [phone] Nayan Rosario MD [address] [place] [address] [address] [place], [place] [id number] BMI 45.0-49.9, adult (CMS/HCC) (HCC) (Primary Dx) Social History Tobacco Use Types Packs/Day Years Used Date Smoking Tobacco: Never Smokeless Tobacco: Never Alcohol Use Standard Drinks/Week Comments Yes 0 (1 standard drink = 0.6 oz pur e alcohol) occasional Comments No Sex and Gender Information Value Date Recorded Sex Assigned at Not on file Legal Sex Female 8:56 PM HUMAN RESOURCES 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 Gender Identity Not on file Sexual Orientation Not on file documented as of this encounter Last Filed Vital Signs Vital Sign Reading Time Taken Comments Blood Pressure 165/90 08/17/2022 8:[address] Rosario notified Pulse 102 08/17/2022 8:25 AM CDT Temperature 36.1 ??C (96.9 ??F) 08/17/2022 8 :25 AM CDT Respiratory Rate - - Oxygen Saturation 97% 08/17/2022 8:2 5 AM CDT Inhaled Oxygen Concentration - - Weight 166.1 kg (366 lb 3.2 oz) 08/17/2022 8:25 AM CDT Height 165.1 cm (5' 5 ) 08/17/2022 8:25 AM CDT Body Mass Index 60.94 08/17/2022 8:25 AM CDT documented in this encounter Progress Notes * Nayan Rosario MD - 08/17/2022 9:25 AM CDT Progress Note Subjective: HPI: Since last visit the patient has time to review her options such as the sleeve and bypass. Shefavors proceeding with a sleeve gastrectomy. Chief complaint: Morbid obesity Objective: Vitals BP 165/90 (BP Location: Right arm, Patient Position: Sitting) Pulse 102 Temp 36.1 ??C (96.9 ??F) Ht 165.1 cm (5' 5 ) Wt (!) 166.1 kg (366 lb 3.2 oz) SpO2 97% BMI 60.94 kg/m?? Physical Exam Abdomen: Soft, obese Assessment/Plan Diagnoses and all orders for this visit: BMI 45.0-49.9, adult (CMS/HCC) (HCC) (Primary) Assessment & Plan: We will make referrals to the dietitian, psych and physical therapy to continue to help her with her process. Continue small frequent meals. Exercise as tolerates. We will see her back next month Nayan Rosario MD 8:50 AM 08/17/2022 documented in this encounter Miscellaneous Notes * Assessment & Plan Note - Nayan Rosario MD - 08/17/2022 8:49 AM CDTAssociated Problem(s): BMI 45.0-49.9, adult ([facility]) We will make referrals to the dietitian, psych and physical therapy to continue to help her with her process. Continue small frequent meals. Exercise as tolerates. We will see her back next month documented in this encounter Plan of Treatment Not on file documented as of this encounter Visit Diagnoses Diagnosis BMI 45.0-49.9, adult (HCC)- Primary documented in this encounter Care Teams Cork Floor Installer Relationship Specialty Start Date End Date Rox Bustillo NP [address] [address] PCP - General Family Medicine 04/21/21 No, Physician 01/10/17 documented as of this encounter
--- OUTSIDE RECORDS SUMMARY | 2024-06-13 23:57 | XMS_ITS | Encounter Summary ---
Author Organization [facility] Address [address] [place] [address] Care Team Providers Care Fittings Tightener Name Role Phone No, Physician Unavailable Rox Bustillo NP Primary Care Provider + [phone] Encounter Details Date Type Department Care Team ([facility] st Contact Info) Description 08/17/2022 Orders Only [place] [facility] [address] [facility] [address] [place] [id number] Nayan Rosario MD [address] [facility] [address] [place] [address] Encounter for psychological assessment prior to bariatric surgery (Primary Dx) Social History Tobacco Use Types Packs/Day Years Used Date Smoking Tobacco: Never Smokeless Tobacco: Never Alcohol Use Standard Drinks/Week Comments Yes 0 (1 standard drink = 0.6 oz pur e alcohol) occasional Comments No Sex and Gender Information Value Date Recorded Sex Assigned at Not on file 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
--- OUTSIDE RECORDS SUMMARY | 2024-06-13 23:57 | XMS_ITS | Encounter Summary ---
Author Organization [facility] Healthcare Address [address] [place] [id number] Care Team Providers Care Dietary Cook Name Role Phone No, Physician Unavailable Rox Bustillo NP Primary Care Provider [phone] Encounter Details Date Type Department Care Team (Latest Contact Info) Description 10/11/2022 12:11 PM CDT - 10/11/2022 11:59 PM CDT Hospital Encounter [facility] Nutrition and Diabetic Education [address] [facility] [address] [place] [address] Fields, Yareli Lechuga, RD [address] [place] [address] Discharge Disposition: Discharge to home or self care Social History Tobacco Use Types Packs/Day Years Used Date Smoking Tobacco: Never Smokeless Tobacco: Never Alcohol Use Standard Drinks/Week Comments Yes 0 (1 standard drink = 0.6 oz pur e alcohol) occasional AUDIT-C Answer Date Recorded Q1: How often do you have a drink containing alc ohol? Monthly or less 09/14/2022 Q2: How many drinks containi ng alcohol do you have on a typical day when you are drinking? 1 or 2 09/14/2022 Q3: How often do you have si x or more drinks on one occasion? 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 Gender Identity Not on file Sexual Orientation Not on file documented as of this encounter Last Filed Vital Signs Vital Sign Reading Time Taken Comments Blood Pressure - - Pulse - - Temperature - - Respiratory Rate - - Oxygen Saturation - - Inhaled Oxygen Concentration - - Weight - - Height 165.1 cm (5' 5 ) 10/11/2022 1:11 PM CDT Body Mass Index - - documented in this encounter Medications at Time of Discharge medroxyPROGESTERone (PROVERA) 10 mg tablet 07/05/2022 metoprolol XL (TOPROL-XL) 25 mg extended release tablet Take 1 tablet (25 mg total) by mouth daily 05/15/2022 triamterene-hydroCHL OROthiazide 37.5-25 mg per tablet TK 1 T PO QD 01/14/2020 amoxicillin-clavulan ate (AUGMENTIN) 875-125 mg per tablet Take 1 tablet by mouth every 12 (twelve) hours for 10 days 09/07/2022 3 clonazePAM (KlonoPIN) 0.25 mg disintegrating tablet Take [...] Progress Notes * Yareli Fields, RD - 10/11/2022 2:00 PM CDT Outpatient Nutrition Counseling Assessment Patient Name: Maeve Ross : 2000 Sex: female Encounter Date: 10/11/2022 Time Calculation (min): 25 min Visit #: [address] Rosario to nutrition counseling for Morbid Obesity/ Bariatric Surgery Program . She has a past medical history of Anemia, Hypertension, Obesity, and Ovarian cyst. Assessment Pt is alone for nutritional counseling today. Her weight was 349.8 lbs This is a 5.9 lb wt loss/ 16days. Pt is doing very well. She was exercising but gained weight d/t lifting weights. She has since, stopped working out at the gym. This RDN encouraged this patient to do only cardio and not lift weights. Bariatric packet #3 given and discussed. Bariatric support group flyer was given for this month. Good compliancy expected to continue. Diet Recall: Breakfast: yogurt, cheese stick, blackberries. Water Lunch: turkey wrap, low fat cheese, water Dinner: Real good meal, water. Snacks:SF pudding, SF popsicle. Water Beverages: Water Personal Goals: lose more weight Support System: family Barriers to change: none Exercise: walk occasionally Anthropometrics: Ht 165.1 cm (5' 5 ) BMI 58.38 kg/m?? IBW/kg (Calculated) : 56.7 kg. Today's weight = 349.8 lbs. Wt Readings from Last 3 Encounters: 09/14/22 (!) 159.1 kg (350 lb 12.8 oz) 08/17/22 (!) 166.1 kg (366 lb 3.2 oz) 07/20/22 (!) 163.9 kg (361 lb 6.4 oz) No results found for: CALCBMI Relevant Medications and Lab Review: HOME MEDICATIONS : amoxicillin-clavulanate (AUGMENTIN) 875-125 mg per tablet clonazePAM (KlonoPIN) 0.25 mg disintegrating tablet HYDROcodone-acetaminophen (NORCO) 5-325 mg per tablet ibuprofen (ADVIL,MOTRIN) 800 mg tablet medroxyPROGESTERone (PROVERA) 10 mg tablet metoclopramide (REGLAN) 10 mg tablet metoprolol XL (TOPROL-XL) 25 mg extended release tablet ondansetron ODT (ZOFRAN-ODT) 4 mg disintegrating tablet traMADol (ULTRAM) 50 mg tablet triamterene-hydroCHLOROthiazide 37.5-25 mg per tablet Food/Medication interactions: na MVI use: na No results found for: HGBA1C Lab Results Component Value Date CREATININE 0.81 04/21/2021 BUNSER 12 04/21/2021 SODIUM 138 04/21/2021 POTASSIUM 3.8 04/21/2021 Nutritional Needs and Diagnosis: Careplan 1 Nutrition Diagnosis 1: Overweight/Obesity Related to: Food choices, Lack of activity, Lack of education Evidenced by: Patient interview, Physical finding Interventions: Education, nutrition, Encouragement Goals: Other (comment) (lose more weight) Monitoring and Evaluation: Plan of care Recommendations: Read labels. Count carb, protein & fat grams. Measure portion sizes. Keep a food diary. Eat more lean protein/ low carb veggies/ salad. Avoid fried/high fat/high calorie foods. Walk or exercise 3-4 times/week for 30 min each. Avoid mindless eating. Avoid eating after 7 pm. F/U with RD in 4-8 weeks. Nutritional Needs: Total Kcal/kg Estimated Needs : 1586.68 Kcal/k Total Protein Estimated Needs (gm): 158.67 Protein Needs Based on g/k.0 Total Fat Estimated Needs (gm): 35.26 Fat Needs Based on % of Calories: 20 Total Fluid Estimated Needs: 1586.68 Fluid Needs Based on : 1 ml/kcal Intervention: Education given 3rd Visit: Goals to Prepare for Weight Loss Surgery (choose 3-4 more goal) Dumping Syndrome Pre-surgery Liver Reducing Diet or Pre-surgery 1-2 Week Liver Reducing diet Bariatric Surgery Shopping Guide (shows what to buy at each diet stage). Discussed choosing lean protein and opting for unsaturated fats over saturated fats. Encouraged Maeve Ross to incorporate physical activity as permitted by MD with overall goal of 150 minutes per week. Monitoring/Evaluation: Weight Portion sizes Exercise Evaluation of Learning: Pt Maeve Ross needs further instruction and needs review/assistance . Pt is in Action stage of change. Expect adherence to recommendations to be good. Pt to follow up November 2022 for support/reinforcement. Communication sent to referring provider with education provided and desired outcomes Yareli Fields RDN, LDN documented in this encounter Plan of Treatment Not on file documented as of this encounter Visit Diagnoses Not on filedocumented in this encounter Care Teams Dietary Cook Relationship Specialty Start Date End Date Rox Bustillo NP [address] [address] PCP - General Family Medicine 04/21/21 No, Physician 01/10/17 documented as of this encounter
--- OUTSIDE RECORDS SUMMARY | 2024-06-13 23:57 | XMS_ITS | Encounter Summary ---
Author Organization [facility] Healthcare Address [address] [place] [address] Care Team Providers Care Manager Night Name Role Phone No, Physician Unavailable Rox Bustillo NP Primary Care Provider Reason for Visit * Reason Comments Headache Encounter Details Date Type Department Care Team ([facility] Contact Info) Description 04/21/2021 7:31 PM ISOTOPE HYDROLOGIST - 04/21/2021 10:05 PM ISOTOPE HYDROLOGIST Emergency [facility] Emergency Department [address] [place] [address] [place] [id number] [place] [address] Shayne Stratton MD [address] [place] [id number] Nonintractable headache, unspecified chronicity pattern, unspecified headache type (Primary Dx) Discharge Disposition: Discharge to home or self care Social History Tobacco Use Types Packs/Day Years Used Date Smoking Tobacco: Never Smokeless Tobacco: Never Alcohol Use Standard Drinks/Week Comments Yes 0 (1 standard drink = 0.6 oz pur e alcohol) occasional Comments No Sex and Gender Information Value Date Recorded Sex Assigned at Not on file Legal Sex Female 8:56 PM ISOTOPE HYDROLOGIST Gender Identity Not on file Sexual Orientation Not on file documented as of this encounter Last Filed Vital Signs Vital Sign Reading Time Taken Comments Blood Pressure 124/90 04/21/2021 9:46 PM ISOTOPE HYDROLOGIST Pulse 94 04/21/2021 9:46 PM ISOTOPE HYDROLOGIST Temperature 36.7 ??C (98 ??F) 04/21/2021 9:46 PM ISOTOPE HYDROLOGIST Respiratory Rate 20 04/21/2021 9:46 PM ISOTOPE HYDROLOGIST Oxygen Saturation 98% 04/21/2021 9:46 PM ISOTOPE HYDROLOGIST Inhaled Oxygen Concentration - - Weight 158.8 kg (350 lb) 04/21/2021 6:43 PM ISOTOPE HYDROLOGIST Height 165.1 cm (5' 5 ) 04/21/2021 6:43 PM ISOTOPE HYDROLOGIST Body Mass Index 58.24 04/21/2021 6:43 PM ISOTOPE HYDROLOGIST documented in this encounter Discharge Diagnoses Diagnosis Headache, unspecified - HEADACHE, UNSPECIFIED Essential (primary) hypertension - ESSENTIAL (PRIMARY) HYPERTENSION Unspecified essential hypertension Other detention (current) drug therapy - OTHER HALFWAY (CURRENT) DRUG THERAPY documented in this encounter Discharge Instructions * Attachments The following attachments cannot be sent through Care Everywhere. * Headache, Unspecified (Tajik) documented in this encounter Medications at Time of Discharge triamterene-hydroCHL OROthiazide 37.5-25 mg per tablet TK [...] documented in this encounter ED Notes * Shawn Narayanan MD - 04/21/2021 7:38 PM CST Chief Complaint Patient presents with ??? Headache HPI 04/21/2021 7:38 PM Summer Abhay Ross is a 21 y.o. female nonsmoker with a h/o HTN and anemia who presents to the ED with intermittent headache for 1 week, worsening today. Patient states that her pain is exacerbated by light. She also reports blurry vision today. She states that she took Excedrin earlier today without relief. She reports having similar symptoms in the past, associated with elevated BP. She reports taking metoprolol 25 mg daily as prescribed. She denies nausea, vomiting, chest pain, and SOB. No other complaints at this time. Past Medical History: Diagnosis Date ??? Anemia ??? Hypertension ??? Obesity ??? Ovarian cyst Past Surgical History: Procedure Laterality Date ??? CHOLECYSTECTOMY ??? OTHER SURGICAL HISTORY myringotomy ??? OTHER SURGICAL HISTORY exploratory laparoscopic cyst on ovary Family History Problem Relation Age of Onset ??? Anemia Mother ??? Cancer Father ??? Bladder Cancer Father ??? Heart disease Father ??? Stroke Father ??? Diabetes Father ??? Multiple sclerosis Father's Sister ??? Hearing loss Maternal Grandfather ??? Stroke Paternal Grandmother ??? Diabetes Paternal Grandmother ??? Hearing loss Paternal Grandfather ??? Diabetes Paternal Grandfather Social History Tobacco Use ??? Smoking status: Never Smoker ??? Smokeless tobacco: Never Used Substance Use Topics ??? Alcohol use: Yes Comment: occasional ??? Drug use: No Review of Systems Review of Systems Constitutional: Negative for chills, fatigue and fever. Eyes: Positive for photophobia and visual disturbance. Respiratory: Negative for chest tightness, shortness of breath and wheezing. Cardiovascular: Negative for chest pain. Gastrointestinal: Negative for abdominal pain, nausea and vomiting. Neurological: Positive for headaches. All other systems reviewed and are negative. Physical Exam ED Triage Vitals Temp Pulse Resp BP SpO2 04/21/21184204/21/21184204/21/21184204/21/21184204/21/211842 37 ??C (98.6 ??F) 102 16 (!) 142/107 98 % Temp src Heart Rate Source Patient Position BP Location FiO2 (%) 04/21/21184204/21/21195104/21/211951 -- -- Temporal Monitor Sitting Physical Exam Vitals and nursing note reviewed. Constitutional: Appearance: Normal appearance. She is obese. HENT: Head: Normocephalic and atraumatic. Nose: Nose normal. Eyes: Extraocular Movements: Extraocular movements intact. Conjunctiva/sclera: Conjunctivae normal. Cardiovascular: Rate and Rhythm: Normal rate and regular rhythm. Pulmonary: Effort: Pulmonary effort is normal. Breath sounds: Normal breath sounds. Abdominal: Palpations: Abdomen is soft. Tenderness: There is no abdominal tenderness. Musculoskeletal: General: Normal range of motion. Cervical back: Normal range of motion. Skin: General: Skin is warm and dry. Neurological: General: No focal deficit present. Mental Status: She is alert and oriented to person, place, and time. Mental status is at baseline. Psychiatric: Mood and Affect: Mood normal. Behavior: Behavior normal. Judgment: Judgment normal. Procedures Labs Reviewed CBC WITH AUTO DIFFERENTIAL BASIC METABOLIC PANEL No orders to display BP 128/68 Pulse 103 Temp 36.8 ??C (98.2 ??F) (Oral) Resp 20 Ht 165.1 cm (5' 5 ) Wt (!) 158.8 kg (350 lb) SpO2 98% BMI 58.24 kg/m?? MDM Number of Diagnoses or Management Options Nonintractable headache, unspecified chronicity pattern, unspecified headache type: new and requires workup Amount and/or Complexity of Data Reviewed Clinical lab tests: ordered and reviewed ED Course as of 04/21/21 2100 Time: 04/21 2046 Comment: Will transfer care to Dr. Stratton at shift change. Pending labs and headache improvement. By: Leigha Whaley Final diagnoses: Nonintractable headache, unspecified chronicity pattern, unspecified headache type This note is prepared by Leigha Whaley, acting as a scribe for Shawn Narayanan MD. I electronically signed this note at 9:00 PM on 04/21/2021. I, Shawn Narayanan MD, have personally performed the services described in the documentation, reviewed the documentation, as recorded by the scribe in my presence, and it accurately and completely records my words and actions. Leigha Whaley 04/21/211940 Shawn Narayanan MD 04/21/212100 OPE HYDROLOGIST * Nanci Ibarra RN - 04/21/2021 6:40 PM CST Pt presents to the ed for c/o headache for 1 week. Pt stated that she took Excedrin today at 1200 and stated that it did not really help. Rates pain 02/11 OPE HYDROLOGIST documented in this encounter Miscellaneous Notes * ED Re-evaluation Note - Shayne Stratton MD - 04/21/2021 9:08 PM ISOTOPE HYDROLOGIST ED Re-evaluation Note 04/21/2021 9:08 PM Patient care assumed from Dr. Narayanan. Case and findings, including treatment plan, evaluations, consults, and lab/imaging results were discussed. BP 124/90 (BP Location: Left arm, Patient Position: Sitting) Pulse 94 Temp 36.7 ??C (98 ??F) (Temporal) Resp 20 Ht 165.1 cm (5' 5 ) Wt (!) 158.8 kg (350 lb) SpO2 98% BMI 58.24 kg/m?? Labs Reviewed CBC WITH AUTO DIFFERENTIAL - Abnormal Result Value WBC 11.3 (*) Hgb 12.8 Hct 42.0 Plt 312 MPV 11.2 RBC 5.32 (*) MCV 78.9 (*) MCH 24.1 (*) MCHC 30.5 (*) RDW CV 15.8 (*) RDW SD 44.4 NRBC abs 0.00 DIFFERENTIAL AUTO - Abnormal Neutrophil abs 8.2 (*) Imm gran abs 0.1 Lymphocyte abs 2.5 Monocyte abs 0.5 Eosinophil abs 0.1 Basophil abs 0.0 Neutrophil pct 72.5 Imm gran pct 0.4 Lymphocyte pct 21.8 Monocyte pct 4.3 Eosinophil pct 0.7 Basophil pct 0.3 BASIC METABOLIC PANEL Sodium 138 Potassium, pl 3.8 Chloride 99 CO2 29 Anion gap 10 BUN 12 Creatinine 0.81 Glucose 110 Calcium 9.5 EGFR eGFR 102 No orders to display ED Course as of 04/21/212155 Time: 04/21 2046 Comment: Will transfer care to Dr. Stratton at shift change. Pending labs and headache improvement. By: Leigha Whaley Final diagnoses: Nonintractable headache, unspecified chronicity pattern, unspecified headache type This note is prepared by Leigha Whaley, acting as a scribe for Shayne Stratton MD. I electronically signed this note at 9:56 PM on 04/21/2021. I, Shayne Stratton MD, have personally performed the services described in the documentation, reviewed the documentation, as recorded by the scribe in my presence, and it accurately and completely records my words and actions. Leigha Whaley 04/21/212107 Shayne Stratton MD 04/21/212155 OPE HYDROLOGIST documented in this encounter Plan of Treatment Not on file documented as of this encounter Procedures Procedure Name Priority Date/Time Associated Diagnosis Comments EGFR STAT 04/21/2021 9:06 PM ISOTOPE HYDROLOGIST DIFFERENTIAL AUTO STAT 04/21/2021 9:0 6 PM ISOTOPE HYDROLOGIST CBC WITH AUTO DIFFERENTIAL STAT 04/21/2021 9:06 PM ISOTOPE HYDROLOGIST BASIC METABOLIC PANEL STAT 04/21/2021 9:06 PM ISOTOPE HYDROLOGIST documented in this encounter Results * eGFR (04/21/2021 9:06 PM ISOTOPE HYDROLOGIST) [facility] eGFR 102 mL/min/1.7 3 m2 [facility] Comment: Interpretive Data Reference Interval Normal ?>/= 90 mL/min/1.73m2 Mildly decreased* ? 60 - 89 mL/min/1.73m2 Mildly to moderately decreased ?45 - 59 mL/min/1.73m2 Moderately to severely decreased ??30 - 44 mL/min/1.73m2 Severely decreased ?15 - 29 mL/min/1.73m2 Kidney Failure ?< 15 ??mL/min/1.73m2 *Relative to young adult level Estimated glomerular filtration rate is determined by the CKD-EPI equation recommended by the National Kidney Foundation (KDIGO 2012 Clinical Practice Guideline for the Evaluation and Management of Chronic Kidney Disease. Kidney Intnl Suppl Jun 2012;3:1). The CKD-EPI equation should not be used for patients with unstable renal function and has not been validated in children and those over 70. Current interpretive data was last reviewed 2020 Blood 04/21/2021 9:06 PM ISOTOPE HYDROLOGIST 04/21/2021 9:09 PM ISOTOPE HYDROLOGIST us Shawn Narayanan MD LAB BLOOD ORDERABLES F inal Result [facility] 1 [facility] [place] [address] * (ABNORMAL) Differential, auto (04/21/2021 9:06 PM ISOTOPE HYDROLOGIST) Neutrophil abs 8.2(H) 1.7 - 6.5 K/cumm [facility] ([place]) Imm gran abs 0.1 0.0 - 0.1 K/cumm [facility] Lymphocyte abs 2.5 0.8 - 3.3 K/cumm [facility]) Monocyte abs 0.5 0.2 - 0.8 K/cumm [facility] Eosinophil abs 0.1 0.0 - 0.5 K/cumm [facility] ([place]) Basophil abs 0.0 0.0 - 0.1 K/cumm [facility] Neutrophil pct 72.5 % [facility] ([place] Comment: Interpretive Data Percent cell count reference ranges are not reported, since discordance with absolute values may lead to misinterpretation of CBC data. Current Interpretive Data was last revised on 2017. Imm gran pct 0.4 % [facility] ([place] Comment: Interpretive Data Percent cell count reference ranges are not reported, since discordance with absolute values may lead to misinterpretation of CBC data. Current Interpretive Data was last revised on 2017. Lymphocyte pct 21.8 % [facility] ([place] Comment: Interpretive Data Percent cell count reference ranges are not reported, since discordance with absolute values may lead to misinterpretation of CBC data. Current Interpretive Data was last revised on 2017. Monocyte pct 4.3 % [facility] ([place] Comment: Interpretive Data Percent cell count reference ranges are not reported, since discordance with absolute values may lead to misinterpretation of CBC data. Current Interpretive Data was last revised on 2017. Eosinophil pct 0.7 % [facility] ([place] Comment: Interpretive Data Percent cell count reference ranges are not reported, since discordance with absolute values may lead to misinterpretation of CBC data. Current Interpretive Data was last revised on 2017. Basophil pct 0.3 % [facility] ([place] Comment: Interpretive Data Percent cell count reference ranges are not reported, since discordance with absolute values may lead to misinterpretation of CBC data. Current Interpretive Data was last revised on 2017. Blood 04/21/2021 9:06 PM ISOTOPE HYDROLOGIST 04/21/2021 9:09 PM ISOTOPE HYDROLOGIST us Shawn Narayanan MD LAB BLOOD ORDERABLES F inal Result [facility] ([place]) 1 [facility] [place] [address] * Basic metabolic panel (04/21/2021 9:06 PM ISOTOPE HYDROLOGIST) Sodium 138 135 - 145 mmol/L [facility] ([place]) Potassium, pl 3.8 3.3 - 4.9 mmol/L [facility]) Chloride 99 97 - 110 mmol/L [facility] CO2 29 22 - 32 mmol/L [facility] Anion gap 10 2 - 15 mmol/L [facility] BUN 12 8 - 25 mg/dL [facility] Creatinine 0.81 0.60 - 1.10 mg/dL [facility] Glucose 110 70 - 199 mg/dL [facility] ([place] Comment: Interpretive Data Fasting glucose [...] classification and Diagnosis of Diabetes Diabetes Care 2017;40 (Suppl. 1):S11. Current interpretive data was last revised 2017. Calcium 9.5 8.5 - 10.3 mg/dL [facility]) Blood 04/21/2021 9:06 PM ISOTOPE HYDROLOGIST 04/21/2021 9:09 PM ISOTOPE HYDROLOGIST us Shawn Narayanan MD LAB BLOOD ORDERABLES F inal Result [facility] ([place] [place] [address] * (ABNORMAL) CBC with auto differential (04/21/2021 9:06 PM ISOTOPE HYDROLOGIST) WBC 11.3(H) 3.8 - 9.9 K/cumm [facility] Hgb 12.8 11.9 - 15.5 g/dL [facility] Hct 42.0 35.6 - 45.5 % [facility] Plt 312 150 - 400 K/cumm [facility] MPV 11.2 9.1 - 12.3 fL [facility] RBC 5.32(H) 3.90 - 5.20 M/cumm [facility] MCV 78.9(L) 81.3 - 96.4 fL [facility] MCH 24.1(L) 27.1 - 33.3 pg [facility] MCHC 30.5(L) 32.3 - 35.7 g/dL [facility] RDW CV 15.8(H) 11.1 - 14.9 % [facility] RDW SD 44.4 35.7 - 48.1 fL [facility] NRBC abs 0.00 0.00 - 0.01 K/cumm [facility] Blood 04/21/2021 9:06 PM ISOTOPE HYDROLOGIST 04/21/2021 9:09 PM ISOTOPE HYDROLOGIST us Shawn Narayanan MD LAB BLOOD ORDERABLES F inal Result [facility] ([place] [place] [address] documented in this encounter Visit Diagnoses Diagnosis Nonintractable headache, unspecified chronicity pattern, unspecified headache type- Primary documented in this encounter Administered Medications Inactive Administered Medications - up to 3 most recent administrations Medication Order MAR Action Action Date Dose Rate Site diphenhydrAMINE (BENADRYL) injection 12.5 mg 12.5 mg, intravenous, Administer over 2 Minutes, Once, On Fara 04/21/21 at 1940, For 1 dose Given 04/21/2021 8:15 PM ISOTOPE HYDROLOGIST 12.5 mg ketorolac (TORADOL) injection 30 mg 30 mg, intravenous, Once, On Fara 04/21/21 at 1940, For 1 dose, For Adult IV push, administer over 15 seconds Given 04/21/2021 8:16 PM ISOTOPE HYDROLOGIST 30 mg metoclopramide (REGLAN) injection 10 mg 10 mg, intravenous, Administer over 1 Minutes, Once, On Fara 04/21/21 at 1940, For 1 dose Given 04/21/2021 8:15 PM ISOTOPE HYDROLOGIST 10 mg prochlorperazine (COMPAZINE) tablet 10 mg 10 mg, oral, Once, On Fara 04/21/21 at 1849, For 1 dose Given 04/21/2021 8:15 PM ISOTOPE HYDROLOGIST 10 mg documented in this encounter Active and Recently Administered Medications Times are shown in ISOTOPE HYDROLOGIST. Scheduled Medication Order 04/19/2021 04/20/2021 04/21/2021 diphenhydrAMINE (BENADRYL) injection 12.5 mg (COMPLETED) 12.5 mg, intravenous, Administer over 2 Minutes, Once, On Fara 04/21/21 at 1940, For 1 dose 2014 (Given - Provid er: Kavitha Mata RN) ketorolac (TORADOL) injection 30 mg (COMPLETED) 30 mg, intravenous, Once, On Fara 04/21/21 at 1940, For 1 dose, For Adult IV push, administer over 15 seconds 2015 (Given - Provid er: Kavitha Mata, EBEN) metoclopramide (REGLAN) injection 10 mg (COMPLETED) 10 mg, intravenous, Administer over 1 Minutes, Once, On Fara 04/21/21 at 1940, For 1 dose 2014 (Given - Provid er: Kavitha Mata, EBEN) prochlorperazine (COMPAZINE) tablet 10 mg (COMPLETED) 10 mg, oral, Once, On Fara 04/21/21 at 1849, For 1 dose 2014 (Given - Provid er: Kavitha Mata, EBEN) documented in this encounter Orders Medications Ordered That Ed ht Not Have Been Administered Count Last Ordered Date First Ordered Date labetaloL (NORMODYNE,TRANDAT E) injection 20 mg 1 04/21/2021 documented in this encounter Care Teams Manager Night Relationship Specialty Start Date End Date Rox Bustillo NP [address] [address] PCP - General Family Medicine 04/21/21 No, Physician 01/10/17 documented as of this encounter
--- OUTSIDE RECORDS SUMMARY | 2024-06-13 23:57 | XMS_ITS | Encounter Summary ---
Author Organization [facility] Healthcare Address [address] [place] [address] Care Team Providers Care Practice Specialist Name Role Phone No, Physician Unavailable Rox Bustillo NP Primary Care Provider [phone] Reason for Visit * Auth/Cert (Routine) Specialty Diagnoses / Procedures Referred By Contac t Referred To Contact Diagnoses Morbid obesity (HCC) Morbid obesity (HCC) [E66.01] Procedures MD LAPS GSTRC RSTRICTIV PX LONGITUDINAL GASTRECTOMY LAPAROSCOPIC GASTRECTOMY - SLEEVE Referral ID Status Reason Start Date Expiration Date Visits Re quested Visits Authorized [id number] 1 1 Encounter Details Date Type Department Care Team (Latest Contact Info) Description 01/17/2023 7:53 AM CDT - 01/19/2023 2:00 PM CDT Hospital Encounter [facility] [address] [place] [address] Nayan Rosario MD [address] [place] [place] [id number] Morbid obesity (HCC) Discharge Disposition: Discharge to home or self [...] week 01/18/2023 How often do you attend scientologist or congregational serv ices? 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 Gender Identity Not on file Sexual Orientation Not on file documented as of this encounter Last Filed Vital Signs Vital Sign Reading Time Taken Comments Blood Pressure 151/89 01/19/2023 10:58 AM CDT Pulse 86 01/19/2023 10:58 AM CDT Temperature 36.2 ??C (97.2 ??F) 01/19/2023 10:58 AM C DT Respiratory Rate 18 01/19/2023 10:58 AM CDT Oxygen Saturation 98% 01/19/2023 10:58 AM CDT Inhaled Oxygen Concentration - - Weight 151 kg (333 lb) 01/17/2023 4:00 PM CDT Height 165.1 cm (5' 5 ) 01/17/2023 4:00 PM CDT Body Mass Index 55.41 01/17/2023 4:00 PM CDT documented in this encounter Discharge Summaries * Nayan Rosario MD - 01/19/2023 12:10 PM CDT Inpatient Discharge Summary BRIEF OVERVIEW Admitting Provider: Nayan Rosario MD Discharge Provider: Nayan Rosario MD Primary Care Physician at Discharge: Rox Bustillo NP [phone] Admission Date: 01/17/2023 Discharge Date: 01/19/2023 Admission Location: [facility] Problems/Diagnoses: Principal Problem: Morbid obesity (HCC) Resolved Problems: No resolved hospital problems. DETAILS OF HOSPITAL STAY Presenting Problem/History of Present Illness: Planned admission for sleeve gastrectomy Hospital Course: Postprocedure the patient was transferred to the floor on telemetry monitoring. IV fluids and antiemetics were administered. IV pain control was given as needed. Physical therapy was consulted to assist with ambulation. Postoperative day 1. The patient was still having a fair amount of nausea. The dietitian was consulted to assist in dietary Education for discharge. She stayed 1 further day and as she remained hemodynamically stable, afebrile and tolerating her diet she was discharged home on postoperative day 2. Active Issues Requiring Follow-up: Postop incision check Operative Procedures Performed: Procedure(s): LAPAROSCOPIC GASTRECTOMY - SLEEVE Discharge Details Physical Exam at Discharge: Discharge Condition: stable Pulse: 86 Resp: 18 BP: 151/89 Temp: 36.2 ??C (97.2 ??F) Weight: (!) 151 kg (333 lb) Pertinent Exam Findings at Discharge: Incisions clean, dry and intact Discharge Disposition: To home Code Status at Discharge: Full Discharge Instructions: 1. No driving while on narcotics 2. No heavy lifting greater than a milk jug until follow up 3. Ice to operative site, on 15 minutes off 15 minutes as needed for pain 4. May shower starting 01/19, No tub baths or soaking of incisions 5. Take stool softner while on narcotics to prevent constipation 6. Call for worsening pain, erythema, drainage or any other concerns about your incisions or post operative course 7. Follow up in 1 week, Please call office for appointment 8. Diet, until follow up: advance diet as laid out in bariatric handout 9. No straws, chewing gum or carbonated beverages 10. Continue pepcid bid 11. Continue MVI, calcium and vit D Discharge Medications: Current Medications TAKE these medications medroxyPROGESTERone 10 mg tablet Commonly known as: PROVERA metoprolol XL 25 mg extended release tablet Take 1 tablet (25 mg total) by mouth daily Commonly known as: TOPROL-XL triamterene-hydroCHLOROthiazide 37.5-25 mg per tablet/capsule TK 1 T PO QD Commonly known as: MAXZIDE,DYAZIDE Outpatient Follow-Up: Future Appointments Date Time Provider Department Center 02/26/2023 9:[address] [facility] documented in this encounter Discharge Instructions * Discharge Instructions* Juan Antonio Lee RN - 01/19/2023 12:10 PM CDT THANK YOU for choosing our team to provide your health care. Your HEALTH AND SAFETY are important to us. We hope you feel your care on [facility] is ALWAYS EXCELLENT! Please call [facility] at [phone] if you have any questions regarding your care. Wishing you continued improvement during your recovery. Your Surgical Care Unit Team Latonia Hardwick Dana, Denise, Nancy, Peggy, Whitney Arzola Stacy, Debbie, Sheila, Lamika, Judy, Lindsey, Suzie, Kenia, Joselin Sanchez Bonnie, Angie, Melanie, Kayla, Devin, Cassie. * Attachments The following attachments cannot be sent through Care Everywhere. * Laxative, Stool Softeners (By mouth) ([place] Zeal[place]) * Famotidine (By mouth) ([place]) * Ondansetron (By mouth, Into the mouth) ([place]) * Oxycodone, Rapid Release (By mouth) ([place]) documented in this encounter Medications at Time of Discharge medroxyPROGESTER one (PROVERA) 10 mg tablet 07/05/2022 metoprolol XL (TOPROL-XL) 25 mg extended release tablet Take 1 tablet (25 mg total) by mouth daily 05/15/2022 triamterene-hydr oCHLOROthiazide 37.5-25 mg per tablet TK 1 T PO QD 01/14/2020 oxyCODONE (ROXICODONE) 5 mg immediate release tabletIndication s:Pain Take 1 tablet (5 mg total) by mouth every 4 (four) hours as needed for pain for up to 14 days 30 tablet 01/19/2023 02/02/2023 docusate sodium (Colace) 100 mg capsuleIndicatio ns:constipation [...] 01/19/2023 01/07/2024 documented as of this encounter Ordered Prescriptions Prescription Sig Dispense Quantity Refills Last Filled Start Date End Date famotidine (PEPCID) 20 mg tablet Take 1 tablet (20 mg total) by mouth 2 (two) times a day 60 tablet 11 01/19/2023 ondansetron (ZOFRAN) 4 mg tablet Take 1 tablet (4 mg total) by mouth every 6 (six) hours as needed for nausea or vomiting for up to 14 days 30 tablet 01/19/2023 4 docusate sodium (Colace) 100 mg capsuleIndications :constipation Take 1 capsule (100 mg total) by mouth 2 (two) times a day for 14 days 28 capsule 01/19/2023 4 oxyCODONE (ROXICODONE) 5 mg immediate release tabletIndications: Pain Take 1 tablet (5 mg total) by mouth every 4 (four) hours as needed for pain for up to 14 days 30 tablet 01/19/2023 3 documented in this encounter Discharge Disposition Disposition Code Departure Means Destination Comment s Discharge to home or self care documented in this encounter Progress Notes * Rakan Quiroz PTA - 01/19/2023 9:59 AM CDT Physical Therapy 01/19/23 0920 PT Last Visit Session Type Treatment PT Received On 01/19/23 Subjective Agreeable to Therapy Pain Assessment Pain Assessment 0-10 Pain Score 0 - No pain Cognition Overall Cognitive Status WFL Bed Mobility 1 Bed Mobility From 1 Supine Bed Mobility Type 1 To Bed Mobility to 1 Edge of bed Level of Assistance 1 Independent Transfer 1 Transfer From 1 Sit Transfer Type 1 To and from Transfer to 1 Stand Transfer Device 1 No device Transfer Level of Assistance 1 Independent Ambulation 1 Distance (ft) 1 300' Surface 1 Level tile Device 1 No device Assistance 1 Independent Assessment Prognosis Excellent Plan Plan If this is the last note, consider this the discharge summary;Discharge Recommendation/Plan PT Recommendation/Plan (S) Home with family (Patient is Independent with bed mobility, transfers, and ambulation without device. Plan to discontinue physical therapy this date.) Multi-Disciplinary Problems (from Physical Therapy) Active Problems Not on file * Nayan Rosario MD - 01/18/2023 12:37 PM CDT Progress Note Subjective: HPI: Main issue overnight has been nausea. Objective: Vitals: 01/18/23 1108 BP: 131/64 Pulse: 70 Resp: 18 Temp: 36.5 ??C (97.7 ??F) SpO2: 95% Physical Exam Abdomen soft, incision clean, dry and intact Assessment/Plan Morbid obesity Continue IV antiemetics and IV fluids. Pain control as needed. Continue to work with physical therapy. Will need to stay at least another night for better control of the nausea Nayan Rosario MD 12:37 PM 01/18/2023 * Rakan Quiroz INDEPENDENT LIVING INSTRUCTOR - 01/18/2023 9:49 AM CDT Physical Therapy 01/18/23 0925 PT Last Visit Session Type Treatment PT Received On 01/18/23 Pain Assessment Pain Assessment 0-10 Pain Score 0 - No pain Cognition Overall Cognitive Status WFL Bed Mobility 1 Bed Mobility From 1 Supine Bed Mobility Type 1 To Bed Mobility to 1 Edge of bed Level of Assistance 1 Independent Transfer 1 Transfer From 1 Sit Transfer Type 1 To and from Transfer to 1 Stand Transfer Device 1 No device Transfer Level of Assistance 1 Standby Assist;Independent Ambulation 1 Distance (ft) 1 300' Surface 1 Level tile Device 1 IV pole Assistance 1 Standby Assist;Independent Stairs Stairs Yes Stairs Number of Stairs 1 5 Rails 1 Bilateral Device 1 No device Assistance 1 Standby Assist Assessment Prognosis Excellent Plan Plan If this is the last note, consider this the discharge summary Recommendation/Plan PT Recommendation/Plan Home with family (See for 1 more visit than DC Therapy) Multi-Disciplinary Problems (from Physical Therapy) Active Problems Problem: PT Misc Start Date: 01/17/23 Goal Start Date Expected End Date End Date PT [facility] [place]17[place]23 01/24/23 -- Goal Details: Ambulate 200' with independence * Crista Dorman, PT - 01/17/2023 3:15 PM CDT Physical Therapy INITIAL EVALUATION PATIENT'S NAME:Bailee De Los Santos :2000 AGE:22 y.o. TIME IN:1516 TIME OUT:1530 CURRENT DIAGNOSIS AND HOSPITAL COURSE:morbid obesity s/p laparoscopic sleeve gastrectomy on 01/17 Patient Active Problem List Diagnosis Biliary dyskinesia BMI 45.0-49.9, adult (HCC) Epigastric pain Cervicitis Achilles tendinitis of right lower extremity Heartburn Morbid obesity ([facility]) Past Medical History: Diagnosis Date Anemia Hypertension Obesity Ovarian cyst Sleep apnea Past Surgical History: Procedure Laterality Date CHOLECYSTECTOMY OTHER SURGICAL HISTORY myringotomy OTHER SURGICAL HISTORY exploratory laparoscopic cyst on ovary UPPER GASTROINTESTINAL ENDOSCOPY 11/14/2022 SUBJECTIVE LIVES WITH: with 11y/o and 8 y/o brother and sister. Patient is the primary caregiver LIVING ENVIRONMENT: trailer with 5 steps to enter with hand rails PRIOR LEVEL OF FUNCTION: independent with bathing, dressing, cooking and cleaning EQUIPMENT OWNED: no DME EQUIPMENT USED: no DME FALL HISTORY: reports no h/o falls SOCIAL SUPPORTS: family to assist besides 8 and 11 y/o PATIENT/FAMILY GOAL: NA MENTAL STATUS/ORIENTATION: Alert and oriented x4 OBJECTIVE PRECAUTIONS: fall risk APPEARANCE/POSTURE: sitting in bedside chair with IV attached PAIN: Pre-therapy pain level: 09/11 Pain location: abdomen Pain intervention: pain meds given Post-therapy pain level/response to intervention: 08/11 LE ASSESSMENTS: Right LE ROM: WFL Left LE ROM: WFL Right LE strength: WFL Left LE strength: WFL Coordination: not tested Tone: WFL MOBILITY: Bed mobility: not tested, patient to stay up in chair Transfers: sit to/from stand with supervision assist Ambulation: Distance: 200' Assistive device: no assistive device and IV pole Level of assist: supervision Deviations: increased lateral sway, nausea/vomiting upon returning to room Stairs: Not tested Balance/Special Tests: Static sitting balance: good Dynamic sitting balance: good Static standing balance: good Dynamic standing balance: good 6 CLICK: Basic Mobility - 6 Click How much difficulty does the patient have: Turning over in bed: A little How much difficulty does the patient currently have: Sitting down and standing up from a chair witharms?: None How much difficulty does the patient have: Moving from lying on back to sitting on the side of the bed?: None How much difficulty does the patient have: Moving to and from a bed to a chair including wheelchair?: None How much help does the patient currently need: Walk in hospital room?: None How much help from another person does the patient currently need: Climbing 3-5 steps with a railing?: A little Total 6 Click Score (range 6-24): 22 APPEARANCE/POSTURE (end of session): sitting in bedside chair with LE's elevated EDUCATION: patient educated on benefits of gait and mobility RESPONSE TO EDUCATION: needs reinforcement ASSESSMENT PROBLEM LIST: decreased strength, balance, mobility and gait BARRIERS TO LEARNING: Physical BARRIERS TO DISCHARGE: Pain REHAB POTENTIAL/PROGNOSIS: good PLAN RECOMMENDATIONS: home with family assist TREATMENT PLAN/INTERVENTIONS: gait and bed mobility training FREQUENCY: daily until independent with mobility and gait/steps EQUIPMENT RECOMMENDATIONS: NA Refer to multi-disciplinary care plan section for PT specific goals. Multi-Disciplinary Problems (from Physical Therapy) Active Problems Problem: PT Misc Start Date: 01/17/23 Goal Start Date Expected End Date End Date PT STG - Misc 1 01/17/23 01/24/23 -- Goal Details: Tolerate assessment of bed mobility Goal Start Date Expected End Date End Date PT STG - Mis 2 01/17/23 01/24/23 -- Goal Details: Ambulate 200' with independence Goal Start Date Expected End Date End Date PT STG - Mis 3 01/17/23 01/24/23 -- Goal Details: Tolerate assessment of steps If this is the last note, please consider this the discharge summary. * Yareli Fields RD - 01/17/2023 2:59 PM CDT Pt seen and discussed briefly the bariatric diets progression following surgery. Pt was not feelingwell with N/V. So information was left at her bedside. Upcoming follow up appointment was given along with information on our bariatric support group for January. Pt to call RDN if needed. Yareli Fields RDN, LDN. documented in this encounter H&P Notes * Nayan Rosario MD - 01/17/2023 10:48 AM CDT Patient seen and examined. No change from prior visit. Acceptable risk to proceed with surgery. Nayan Rosario MD 01/17/2023 Surgery H&P Subjective: Patient Name: Bailee De Los Santos Date of Visit: 07/20/22 HPI: Bailee De Los Santos is a 22 y.o. female presenting for surgical evaluation of weight loss surgery. The patient states that she is had a longstanding history with weight loss even dating back to her being a child. She has tried various diet and exercise programs with her best success being a lower carbohydrate and increase activity in the gym program. She was able to lose around 20 lb or so. However as she is gotten busier with life going to the gym and doing healthier choices had become more difficult. She denies any issues with heartburn or reflux. She denies any personal or family history ofblood clots or clotting disorders. Chief Complaint: Morbid obesity Referred by: Rox Bustillo NP Allergies as of 07/20/2022 - Reviewed 07/20/2022 Allergen Reaction Noted Penicillins Swelling 07/21/2016 Current Outpatient Medications: medroxyPROGESTERone (PROVERA) 10 mg tablet metoprolol XL (TOPROL-XL) 25 mg extended release tablet triamterene-hydroCHLOROthiazide 37.5-25 mg per tablet clonazePAM (KlonoPIN) 0.25 mg disintegrating tablet HYDROcodone-acetaminophen (NORCO) 5-325 mg per tablet ibuprofen (ADVIL,MOTRIN) 800 mg tablet metoclopramide (REGLAN) 10 mg tablet ondansetron ODT (ZOFRAN-ODT) 4 mg disintegrating tablet traMADol (ULTRAM) 50 mg tablet Medical History Past Medical History: Diagnosis Date Anemia Hypertension Obesity Ovarian cyst Surgical History Past Surgical History: Procedure Laterality Date CHOLECYSTECTOMY OTHER SURGICAL HISTORY myringotomy OTHER SURGICAL HISTORY exploratory laparoscopic cyst on ovary Family History Problem Relation Age of Onset Anemia Mother Cancer Father Bladder Cancer Father Heart disease Father Stroke Father Diabetes Father Multiple sclerosis Father's Sister Hearing loss Maternal Grandfather Stroke Paternal Grandmother Diabetes Paternal Grandmother Hearing loss Paternal Grandfather Diabetes Paternal Grandfather Social History Social History Tobacco Use Smoking status: Never Smokeless tobacco: Never Substance and Sexual Activity Drug use: No Sexual activity: Defer Partners: Male Alcohol Use: Not on file Review of Systems Constitutional: Negative for activity change. HENT: Negative for hearing loss and sore throat. Eyes: Negative for visual disturbance. Respiratory: Negative for cough and shortness of breath. Cardiovascular: Negative for chest pain. Gastrointestinal: Negative for abdominal pain Genitourinary: Negative for dysuria. Musculoskeletal: Negative for back pain. Neurological: Negative for dizziness and syncope. Psychiatric/Behavioral: Negative for agitation and confusion. Objective: Vitals BP 143/84 (BP Location: Right arm, Patient Position: Sitting) Pulse 97 Temp 36.3 ??C (97.3 ??F) Ht 165.1 cm (5' 5 ) Wt (!) 163.9 kg (361 lb 6.4 oz) SpO2 96% BMI 60.14 kg/m?? Physical Exam Constitutional: The patient is oriented to person, place, and time. Obese Head: Normocephalic and atraumatic. Eyes: Pupils are equal, round, and reactive to light. Neck: No thyromegaly present. Cardiovascular: Normal rate and regular rhythm. Pulmonary/Chest: Effort normal and breath sounds normal. Abdominal: Soft. non distended. There is no tenderness. No hernia. Genitourinary: Rectum normal. Musculoskeletal: Normal range of motion. Neurological: alert and oriented to person, place, and time. Skin: Skin is warm and dry. Psychiatric: normal mood and affect. Assessment/Plan Diagnoses and all orders for this visit: BMI 45.0-49.9, adult ([facility]) ([facility]) (Primary) Assessment & Plan: Given their past success the patient would [...] calorie intake of around 1600 spread throughout 4-5meals. We have discussed not eating late at night. We have discussed cardiovascular exercise. Greater than 15 minutes was spent in counseling the patient on diet and exercise with regards to her morbid obesity. documented in this encounter Nursing Notes * Sonia Navarrete RN - 01/19/2023 2:00 PM CDT Discharge instructions given to pt. All questions and concerns addressed. Pt taken out to personal vehicle with all belongings in hand. documented in this encounter Miscellaneous Notes * Plan of Care - Sonia Navarrete RN - 01/19/2023 2:00 PM CDT Problem: Health Behavior: Goal: Understanding of discharge needs will improve Outcome: Completed Problem: Activity: Goal: Ability to tolerate increased activity will improve Outcome: Completed Problem: Bowel/Gastric: Goal: Gastrointestinal status for postoperative course will improve Outcome: Completed Problem: Lack of Knowledge: Goal: Verbalization of understanding the information provided will improve Outcome: Completed Problem: Physical Regulation: Goal: Postoperative complications will be avoided or minimized Outcome: Completed Problem: Respiratory: Goal: Ability to maintain a clear airway will improve Outcome: Completed Problem: Self-Concept: Goal: Ability to verbalize positive feelings about self will improve Outcome: Completed Problem: Sensory: Goal: Pain level will decrease Outcome: Completed Problem: Skin Integrity: Goal: Demonstration of wound healing without infection will improve Outcome: Completed Problem: Lack of Knowledge: Goal: Ability to develop a pain control plan will improve Outcome: Completed Goal: Ability to identify pain intensity on a pain scale and rate it consistently will improve Outcome: Completed Goal: Ability to notify healthcare provider of pain before it becomes unmanageable or unbearable will improve Outcome: Completed Problem: Medication: Goal: Satisfaction with pain management regimen will improve Outcome: Completed Problem: Sensory: Goal: Ability to identify factors that increase the pain will improve Outcome: Completed Goal: Pain level will decrease Outcome: Completed Goals: Clinical Goals for the Shift: VSS, pain control, good intake and output, remain free from injury/falls Summary: VSS, pain well controlled with PRN medication, complaint of nausea and antiemetic given per MAR. Lap sites are clean dry and intact. Will continue to monitor. * Plan of Care - Maria Elena Phillips RN - 01/19/2023 3:06 AM CDT Goals: Clinical Goals for the Shift: Patients vitals will remain within normal limits and pain will be addressed with prn meds. Summary: Patients vitals have been within normal limits and pain has been addressed with prn meds. * Plan of Care - Sonia Navarrete RN - 01/18/2023 4:05 PM CDT Problem: Health Behavior: Goal: Understanding of discharge needs will improve Outcome: Progressing Problem: Activity: Goal: Ability to tolerate increased activity will improve Outcome: Progressing Problem: Bowel/Gastric: Goal: Gastrointestinal status for postoperative course will improve Outcome: Progressing Problem: Lack of Knowledge: Goal: Verbalization of understanding the information provided will improve Outcome: Progressing Problem: Physical Regulation: Goal: Postoperative complications will be avoided or minimized Outcome: Progressing Problem: Respiratory: Goal: Ability to maintain a clear airway will improve Outcome: Progressing Problem: Self-Concept: Goal: Ability to verbalize positive feelings about self will improve Outcome: Progressing Problem: Sensory: Goal: Pain level will decrease Outcome: Progressing Problem: Skin Integrity: Goal: Demonstration of wound healing without infection will improve Outcome: Progressing Problem: Lack of Knowledge: Goal: Ability to develop a pain control plan will improve Outcome: Progressing Goal: Ability to identify pain intensity on a pain scale and rate it consistently will improve Outcome: Progressing Goal: Ability to notify healthcare provider of pain before it becomes unmanageable or unbearable will improve Outcome: Progressing Problem: Medication: Goal: Satisfaction with pain management regimen will improve Outcome: Progressing Problem: Sensory: Goal: Ability to identify factors that increase the pain will improve Outcome: Progressing Goal: Pain level will decrease Outcome: Progressing Goals: Clinical Goals for the Shift: VSS, pain control, good intake and output, remain free from injury/falls Summary: VSS, pain well controlled with PRN medication, pt remains on bariatric diet, no falls/injuries this shift. Medicated per AUG X2 for complaints of nausea/vomiting. Pt has call light in reach and is resting in bed. Will monitor. * Initial Assessments - Leslye Aguilar RN - 01/18/2023 1:23 PM CDT CM Low Risk Discharge Planning Assessment Note Primary Care Provider: Rox Bustillo NP Preferred Pharmacy: [id number] AT [facility] [address] [facility] [id number] Who does the patient or legal guardian want to receive education instruction and discharge plans for after care assistance?: Name Caregiver Name: Ileana Garza Relationship to patient: Grandparent Living Arrangements: Children Does the patient need discharge transport arranged?: No (01/17/231727) Additional Information and Discharge Plan: DC plan discussed with patient. Goal is to return home-lives with her boyfriend and kids and her boyfriend will be her ride home. Independent and uses no equipment for mobility. Has her home CPAP at bedside and gets her supplies thru [employer]. Barrier to dc is recovery after lap gastric sleeve surgery. No home needs noted at this time. Leslye Aguilar RN Phone Number: * Plan of Care - Krysten Mcnair RN - 01/18/2023 2:57 AM CDT Goals: Clinical Goals for the Shift: Patient to remain hemodynamically stable this shift. Summary: Patient has been up to the bathroom to void. Nausea and pain treated with PRN medication as ordered. IV infusing. Vitals signs stable. * Plan of Care - Whitney Strange RN - 01/17/2023 3:58 PM CDT Problem: Health Behavior: Goal: Understanding of discharge needs will improve Outcome: Progressing Problem: Activity: Goal: Ability to tolerate increased activity will improve Outcome: Progressing Problem: Bowel/Gastric: Goal: Gastrointestinal status for postoperative course will improve Outcome: Progressing Problem: Lack of Knowledge: Goal: Verbalization of understanding the information provided will improve Outcome: Progressing Problem: Physical Regulation: Goal: Postoperative complications will be avoided or minimized Outcome: Progressing Problem: Respiratory: Goal: Ability to maintain a clear airway will improve Outcome: Progressing Problem: Self-Concept: Goal: Ability to verbalize positive feelings about self will improve Outcome: Progressing Problem: Sensory: Goal: Pain level will decrease Outcome: Progressing Problem: Skin Integrity: Goal: Demonstration of wound healing without infection will improve Outcome: Progressing Goals: Clinical Goals for the Shift: VSS, pain control, good intake and output, and remain free from injury Summary: VSS, pain is well controled, incisions are clean dry and intact, up with one assist, tolerating clear liquids, and will continue to monitor. * Op Note - Nayan Rosario MD - 01/17/2023 11:17 AM CDT Images from the original note were not included. NAME: Bailee De Los Santos DATE OF : 2000 SURGEON: Nayan Rosario MD LINE SERVER:Olive Packer: Simi Araujo RN Olive Packer Relief: Sara Adkins RN Scrub: Kelly Willson RN; Dea Conway LPN FAST FOOD CREW LEAD: Dea Peoples RN DATE OF SURGERY: 01/17/2023 PREOP DIAGNOSES: Morbid obesity POSTOP DIAGNOSES: Morbid obesity PROCEDURE: Laparoscopic sleeve gastrectomy INDICATIONS OF PROCEDURE: The patient is a 22-year-old female with longstanding history of issues with weight gain. They went through a 6 month process where they did quite well with persistent weight loss during that time. In their preoperative evaluation an upper endoscopy was performed which didnot demonstrate any sign of a hiatal hernia. They were set up for sleeve gastrectomy. DETAILS OF PROCEDURE: After informed consent was obtained the patient was taken to the operating room and placed supine on the operating table. SCD boots were applied to bilateral lower extremities. General endotracheal intubation was achieved. Perioperative antibiotics were administered and a preoperative time-out completed. The patient was then prepped and draped in standard sterile fashion. Attention was directed towards the abdomen where a 1 cm supraumbilical incision was made. Using Optiview technique a 5 mm trocar and 0 degree scope was inserted into the abdominal cavity under direct visualization. No bowel noted to be in the vicinity of this initial trocar entrance. The abdomen was insufflated to 15 mm ofmercury. At this time a 5 mm trocar was placed in the left upper abdomen. At this time a 15 mm trocar was plane the right mid abdomen and a further 5 mm trocar in the right lateral abdomen. A Brandon liver retractor was inserted to assist in exposure. As the liver was exposed no anterior dimple was seen to suggest hiatal hernia. The patient was placed in reverse Trendelenburg position. At this time the omentum was grasped and with an ultrasonic device the lesser sac was entered. This was carried up along the greater curvature towards the left megan of the diaphragm. Careful dissection along the short gastrics were taken to ensure no injury to the spleen. The fundus was ensured to be completely mobilized off of the left megan of the diaphragm. Posterior attachments were also taken down. At this time we continued our dissection along the greater curvature towards the pylorus. This was stopped at a distance roughly 4 cm from the pylorus. A 40 Chinese visi G-tube was then inserted under direct visualization and directed towards the pylorus. At this time using a black loaded with Daniela Guard, our 1st firing was done. This was in a more horizontal direction. We then continued with purpleloads with Daniela Guard following the edge of our bougie. Once we got up to the left megan our last firing was angled out roughly 1 cm to not encroach on the esophagus. At this time our staple line was inspected. It was found to be hemostatic. The splenic area was also inspected and again found to be hemostatic. Our stomach was then grasped and brought up through the 15 mm trocar site. This site wasthen closed with a suture Passer device with an interrupted 0 Vicryl stitch. The staple line was inspected 1 further time and again found to be hemostatic. At this time the liver tractor was removed under direct visualization. No bleeding was noted. Remaining trocars were removed and pneumoperitoneum evacuated. The skin of all trocar sites were closed with interrupted 4 0 Monocryl subcuticular stitches. Dermabond was then applied. The patient was awoken from anesthesia and transferred to recovery in stable condition. At the end of the procedure all sponge, needle and instrument counts were reported to be correct x2 at the end of the case. ANESTHESIA: General. Plus 10 cc of 0.5% Marcaine COMPLICATIONS: None BLOOD LOSS: 10 cc SPECIMEN: Stomach Nayan Rosario MD 12:56 PM 01/17/2023 * Perioperative Nursing Note - Kaitlin Fall RN - 01/04/2023 2:18 PM CDT Pre operative instructions reviewed with patient, she verbalized understanding of instructions * Pre-Procedure Instructions - Kaitlin Fall RN - 01/04/2023 2:17 PM CDT We are pleased that you and your doctor have chosen [facility] for your surgery. We hope that the following information will help make your visit a pleasant one. Surgery Date: 01/17/2023 Before your surgery: Notify your doctor of ANY change in your health such as a cold, sore throat, fever, any infection or a change in the problem for which you are having your surgery. Follow any instructions given to you by your doctor or surgeon. Check with your doctor if you need to STOP taking: Aspirin (ordered by your doctor) Plavix Coumadin One week before surgery STOP taking: All herbal supplements Aspirin (not ordered by your doctor) Aleve, Advil, Motrin, Ibuprofen, or other similar medications (Tylenol is okay). 24 hours before your surgery: No smoking or alcoholic drinks. Night before your surgery: Do not eat or drink anything after midnight. Follow surgeon's instructions for anti-bacterial shower night before and morning of surgery. Day of surgery: Do not swallow any water when you brush your teeth. ONLY take these pills with a tiny sip of water. Pre-Surgery Instructions: Medication Instructions medroxyPROGESTERone (PROVERA) 10 mg tablet Stop taking 1 days prior to surgery metoprolol XL (TOPROL-XL) 25 mg extended release tablet Take morning of surgery triamterene-hydroCHLOROthiazide 37.5-25 mg per tablet Stop taking 1 days prior to surgery Use no make-up, nail macedonian, lotions, oils or powders on your skin. Wear comfortable clothes that will not be tight in the area of your surgery. Leave all valuables and jewelry (including all body piercing jewelry) at home. If you use a CPAP machine, please bring it with you to wear after your surgery. Please bring your a photo ID and insurance cards with you. Check in at the Registration Desk. If you are 17 years old or younger, a parent or guardian must come with you. After your Outpatient Surgery: You must have a responsible adult to drive you home, you will not be allowed to drive or take a cabhome. We recommend you have someone stay with you for 24 hours after your surgery. What to bring if you are spending the night with us: Bring toiletry items such as: robe, slippers, toothbrush, toothpaste, brush or comb. Bring contact lens, hearing aids, glass cases and denture container if you use any of these items. The hospital will provide you with a gown. Questions or concerns: If you have any questions or concerns regarding your procedure, contact your surgeon as soon as possible. If you have questions regarding your Pre-Admission Testing, please call us. We can be reached at the number posted at the top of the page. documented in this encounter Plan of Treatment Not on file documented as of this encounter Procedures Procedure Name Priority Date/Time Associated Diagnosis Comments EGFR Routine 01/18/2023 4:16 AM CDT CBC WITHOUT DIFFERENTIAL Routine 01/18/2023 4:16 AM CDT PHOSPHORUS Routine 01/18/2023 4:16 AM CDT MAGNESIUM Routine 01/18/2023 4:16 AM CDT BASIC METABOLIC PANEL Routine 01/18/2023 4:16 AM CDT SURGICAL PATHOLOGY Routine 01/17/2023 1: 31 PM CDT Morbid obesity (HCC) LAPAROSCOPIC GASTRECTOMY - SLEEVE 01/17/2023 10:33 AM CDT Morbid obesity (HCC) Case Notes Sid Rahman 8/10 MG EGFR STAT 01/17/2023 8:23 AM CDT ABO/RH STAT 01/17/2023 8:23 AM CDT CBC WITHOUT DIFFERENTIAL STAT 01/17/2023 8:23 AM CDT ANTIBODY SCREEN STAT 01/17/2023 8:23 AM CDT HC ANTIBODY SCREEN RBC STAT 01/17/2023 8:23 AM CDT COMPREHENSIVE METABOLIC PANEL STAT 01/17/2023 8:23 AM CDT POCT HCG, URINE Routine 01/17/2023 8:05 AM CDT documented in this encounter Results * eGFR (01/18/2023 4:16 AM CDT) eGFR 127 mL/min/1. 73 m2 [facility] ([place]) Comment: Interpretive Data Reference Interval Normal ?>/= [...] of Race in Diagnosing Kidney Disease, JASN 2020). The CKD-EPI equation should not be used for patients with unstable renal function and has not been validated in children and those over 70. Current interpretive data was last reviewed 2021. Blood 01/18/2023 4:16 AM CDT 01/18/2023 4:47 AM CDT us Nayan Rosario MD LAB BLOOD ORDERA BLES Final Result [facility] ([place]) 1 [facility] Department [place] [address] * (ABNORMAL) CBC without differential (01/18/2023 4:16 AM CDT) WBC 11.4(H) 3.8 - 9.9 K/cumm [facility] ([place]) Hgb 10.8(L) 11.9 - 15.5 g/dL [facility] ([place]) Hct 35.1(L) 35.6 - 45.5 % [facility] ([place]) Plt 234 150 - 400 K/cumm [facility] ([place]) MPV 12.4(H) 9.1 - 12.3 fL [facility]) RBC 4.45 3.90 - 5.20 M/cumm [facility] ([place]) MCV 78.9(L) 81.3 - 96.4 fL [facility] ([place]) MCH 24.3(L) 27.1 - 33.3 pg [facility] ([place]) MCHC 30.8(L) 32.3 - 35.7 g/dL [facility]) RDW CV 16.0(H) 11.1 - 14.9 % [facility]) RDW SD 44.9 35.7 - 48.1 fL [facility] ([place]) NRBC abs 0.00 0.00 - 0.01 K/cumm [facility] ([place]) Blood 01/18/2023 4:16 AM CDT 01/18/2023 4:47 AM CDT Nayan Rosario MD LAB BLOOD ORDERA BLES Final Result Performing Organization Address City/[facility]/ZIP Co de Phone Number [facility] ([place]) 1 [facility] [place] [address] * Phosphorus (01/18/2023 4:16 AM CDT) Pathologist [facility] Phosphorus, pl 2.8 2.3 - 4.5 mg/dL [facility] ([place]) Blood 01/18/2023 4:16 AM CDT 01/18/2023 4:47 AM CDT Nayan Rosario MD LAB BLOOD ORDERA BLES Final Result Performing Organization Address [place]/[facility] Co de Phone Number [facility] ([place]) 1 [facility] [place] [address] * Magnesium (01/18/2023 4:16 AM CDT) [facility] Magnesium 1.7 1.4 - 2.5 mg/dL [facility] ([place]) Blood 01/18/2023 4:16 AM CDT 01/18/2023 4:47 AM CDT Nayan Rosario MD LAB BLOOD ORDERA BLES Final Result Performing Organization Address City/[facility]/ZIP Co de Phone Number [facility] ([place]) 1 [facility] [place] [address] * Basic metabolic panel (01/18/2023 4:16 AM CDT) Sodium 137 135 - 145 mmol/L [facility] ([place]) Potassium, pl 4.2 3.3 - 4.9 mmol/L [facility] ([place]) Chloride 101 97 - 110 mmol/L [facility] ([place]) CO2 23 22 - 32 mmol/L [facility] Anion gap 13 2 - 15 mmol/L [facility] ([place]) BUN 9 6 - 25 mg/dL [facility] Creatinine 0.62 0.60 - 1.10 mg/dL [facility] Glucose 116 70 - 199 mg/dL [facility] Comment: Interpretive Data Fasting glucose >/= 126 [...] interpretive data was last revised 2022. Calcium 9.2 8.5 - 10.3 mg/dL [facility] Blood 01/18/2023 4:16 AM CDT 01/18/2023 4:47 AM CDT us Nayan Rosario MD LAB BLOOD ORDERA BLES Final Result [facility] [address] [place] [address] Department [place] [address] * Surgical pathology (01/17/2023 1:31 PM CDT) Tissue (Stomach - Subtotal / Total Resection, non-Tumor) 01/17/2023 11:30 AM CDT Narrative [facility] - 01/19/2023 11:35 AM CDT EPIC results best viewed via link to PDF [facility] Department of Pathology [address] [place] [id number] Note to Patients: This report may contain a detailed description of human tissue sent by a health care provider to the laboratory for pathologic evaluation. The content of this report is essential for diagnosis and may provide important critical findings. This information may be unfamiliar to patients to review without a medical professional present. It is advised that the patient review this report in the presence of a health care provider who can answer questions and explain the details. Final Report Patient Name: ??BAILEE DE LOS SANTOS Address: ??[address] [place] [address], ??[place], [place] [address] Gender: ??F : ??2000 (Age: 22) Service: ??Surgery Location: ??[facility] Hospital #: ??[id number] Patient Type: ??[facility] Accession # ?[id number] Taken: ??01/17/2023 Received: ??01/17/2023 Accessioned: ??01/17/2023 Reported: ??01/19/2023 Physician(s):Nayan Rosario MD Diagnosis: Stomach, laparoscopic gastric sleeve: ? - Oxyntic type gastric wall showing mild chronic inactive gastritis. ? - Negative for intestinal metaplasia and dysplasia. ? - Negative for Helicobacter. Rafael Martinez M.D. Report Electronically Reviewed and Signed Out By ??Rafael Martinez M.D. ??01/19/2023 11:35:08 Specimen(s) Received: A: Stomach tissue from gastric sleeve Microscopic Description: Sections show oxyntic-type gastric wall showing mild chronic inactive gastritis. ??No significant acute inflammatory infiltrate is seen. ??There is no evidence of intestinal metaplasia or dysplasia. ??On high power examination, no Helicobacter-like organisms are seen on H&E stain. Clinical History: Morbid obesity. ??Laproscopic gastrectomy - sleeve. ?? Gross Description: The specimen is submitted in a single container labeled with BAILEE DE LOS SANTOS and stomach . ??It is a portion of stomach that measures 22 x 4 x 3. The serosa is smooth, the muscular wall is intact and the mucosal folds are mildly congested but otherwise unremarkable. ??There are no mass lesions. ??Represented in two cassettes. Corey Hurley R.N., P.A./Anu Gonzalez M.D. REPORT IMAGES AND SCANNED DOCUMENTS, IF INCLUDED, ONLY VIEWABLE IN PDF VERSION OF REPORT The performance characteristics of some immunohistochemical stains, fluorescence in-situ hybridization tests and immunophenotyping by flow cytometry cited in this report (if any) were determined by the Surgical Pathology Department at [facility] as part of an ongoing manager quality systems program and in compliance with federally mandated regulations drawn from the Clinical Laboratory Improvement Act of 1988 (CLIA '88). ??Some of these tests rely on the use of analyte specific reagents and are subject to specific labeling requirements by the US Food and Drug Administration. ??Such diagnostic tests may only be performed in a facility that is certified by the Department of Health and Human Services as a high complexity laboratory under CLIA '88. The FDA has determined that such clearance or approval is not necessary. ??This test is used for clinical purposes. ??It should not be regarded as investigational or for research. ??Nevertheless, federal rules concerning the medical use of analyte specific reagents require that the following disclaimer be attached to the report: This test was developed and its performance characteristics determined by the Surgical Pathology Department [facility]. ??It has not been cleared or approved by the U. S. Food and Drug Administration. Note for decalcified specimens: This assay has not been validated on decalcified tissues. Results should be interpreted with caution given the possibility of false negativity on decalcified specimens us Nayan Rosario MD LAB PATHOLOGY OR DERABLES Final Result [facility] [address] [place], [place] [id number] * eGFR (01/17/2023 8:23 AM CDT) eGFR 127 mL/min/1. 73 m2 [facility] Comment: Interpretive Data Reference Interval Normal ?>/= [...] of Race in Diagnosing Kidney Disease, JASN 2020). The CKD-EPI equation should not be used for patients with unstable renal function and has not been validated in children and those over 70. Current interpretive data was last reviewed 2021. Blood 01/17/2023 8:23 AM CDT 01/17/2023 8:30 AM CDT Nayan Rosario MD LAB BLOOD ORDERA BLES Final Result Performing Organization Address City/[facility]/ZIP Co de Phone Number [facility] ([place]) 1 [facility] [place] [address] * Antibody screen (01/17/2023 8:23 AM CDT) Steve, indirect, Gel Interpretation Negative ABSC [facility] ([place]) Blood 01/17/2023 8:23 AM CDT 01/17/2023 8:30 AM CDT Narrative [facility] ([place]) - 01/17/2023 9:03 AM CDT Has the patient had Daratumumab or Isatuximab in the past 6 months?->Unknown Nayan Rosario MD LAB BLOOD BANK T EST ORDERABLES Final Result Performing Organization Address City/[facility]/ZIP Co de Phone Number [facility] ([place]) 1 [facility] [place] [address] * ABO/Rh (01/17/2023 8:23 AM CDT) ABO/Rh A Positive [facility] ([place]) Blood 01/17/2023 8:23 AM CDT 01/17/2023 8:30 AM CDT Narrative [facility] ([place]) - 01/17/2023 9:03 AM CDT Has the patient had Daratumumab or Isatuximab in the past 6 months?->Unknown Nayan Rosario MD LAB BLOOD BANK T EST ORDERABLES Final Result Performing Organization Address City/[facility] Co de Phone Number [facility] ([place] 1 [facility] Department [place] [address] * (ABNORMAL) CBC without differential (01/17/2023 8:23 AM CDT) WBC 8.3 3.8 - 9.9 K/cumm [facility] ([place]) Hgb 12.7 11.9 - 15.5 g/dL [facility] ([place]) Hct 40.0 35.6 - 45.5 % [facility] ([place]) Plt 242 150 - 400 K/cumm [facility] ([place]) MPV 11.6 9.1 - 12.3 fL [facility] ([place]) RBC 5.18 3.90 - 5.20 M/cumm [facility] ([place]) MCV 77.2(L) 81.3 - 96.4 fL [facility] ([place]) MCH 24.5(L) 27.1 - 33.3 pg [facility] ([place]) MCHC 31.8(L) 32.3 - 35.7 g/dL [facility] ([place]) RDW CV 16.2(H) 11.1 - 14.9 % [facility] ([place]) RDW SD 44.6 35.7 - 48.1 fL [facility] ([place]) NRBC abs 0.00 0.00 - 0.01 K/cumm [facility] ([place]) Blood 01/17/2023 8:23 AM CDT 01/17/2023 8:30 AM CDT Nayan Rosario MD LAB BLOOD ORDERA BLES Final Result [facility] ([place] 1 [facility] Department [place] [address] * (ABNORMAL) Comprehensive metabolic panel (01/17/2023 8:23 AM CDT) Sodium 135 135 - 145 mmol/L [facility] ([place]) Potassium, pl 3.7 3.3 - 4.9 mmol/L [facility] ([place]) Chloride 97 97 - 110 mmol/L [facility]) CO2 25 22 - 32 mmol/L [facility] ([place]) Anion gap 13 2 - 15 mmol/L [facility] ([place]) BUN 11 6 - 25 mg/dL [facility] ([place]) Creatinine 0.62 0.60 - 1.10 mg/dL [facility] ([place]) Glucose 91 70 - 199 mg/dL [facility] ([place]) [...] classification and Diagnosis of Diabetes Diabetes Care 202; 46: S19-S40. Current interpretive data was last revised 2022. Calcium 9.5 8.5 - 10.3 mg/dL [facility] ([place]) Bilirubin, total 0.5 0.1 - 1.2 mg/dL [facility] ([place]) Protein, pl 7.4 6.5 - 8.5 g/dL [facility] ([place]) Albumin 3.6 3.5 - 5.0 g/dL [facility] ([place]) Alk phos 100 40 - 130 Units/L [facility] ([place]) ALT 68(H) 7 - 45 Units/L [facility]) AST 44 10 - 45 Units/L [facility] ([place]) Blood 01/17/2023 8:23 AM CDT 01/17/2023 8:30 AM CDT us Nayan Rosario MD LAB BLOOD ORDERA BLES Final Result [facility] ([place]) 1 [facility] Department of Laboratories [place], [place] [id number] * POCT hCG, urine (01/17/2023 8:05 AM CDT) HCG, ur, POC Negative Lot Number [id number] QC Backgroud Clear Acceptable QC Control Line Acceptable Urine 01/17/2023 8:05 AM CDT Christian Frye MD POINT OF CARE TEST ORD ERABLES Final Result documented in this encounter Visit Diagnoses Diagnosis Morbid obesity (HCC)- Primary Morbid obesity documented in this encounter Admitting Diagnoses Diagnosis Morbid obesity (HCC) Morbid obesity documented in this encounter Administered Medications Inactive Administered Medications - up to 3 most recent administrations Medication Order MAR Action Action Date Dose Rate Site acetaminophen (TYLENOL) tablet 1,000 mg 1,000 mg, oral, Once, On Sun01/17/23 at 0845, For 1 dose, Pre-Op, Indications: Pre-Emptive AnalgesiaIndications:Pre-Emptive Analgesia Given 01/17/2023 8:28 AM CDT 1,000 mg docusate sodium (COLACE) capsule 100 mg 100 mg, oral, 2 times daily, First dose on Sun01/17/23 at 2100, Indications: constipationIndications:constipa tion Given 01/19/2023 8:11 AM CDT 100 mg Given 01/18/2023 8:37 PM CDT 100 mg Given 01/18/2023 7:52 AM CDT 100 mg enoxaparin (LOVENOX) syringe 40 mg 40 mg, subcutaneous, Once, On Sun01/17/23 at 0845, For 1 dose, Pre-Op, Indications: VTE ProphylaxisIndications:VTE Prophylaxis Given 01/17/2023 8:28 AM CDT 40 mg Right Lower Abdomen enoxaparin (LOVENOX) syringe 40 mg 40 mg, subcutaneous, Every 12 hours scheduled, First dose on 8/16/23 at 2100, Indications: Deep Vein Thrombosis PreventionIndications:Deep Vein Thrombosis Prevention Given 01/19/2023 8:11 AM CDT 40 mg Left Lower Abdomen Given 01/18/2023 8:37 PM CDT 40 mg Le ft Upper Abdomen Given 01/18/2023 7:53 AM CDT 40 mg Ri ght Lower Abdomen fentaNYL (SUBLIMAZE) preservative free injection 25 mcg 25 mcg, intravenous, Every 10 min PRN, 1st line for pain, Starting on Sun01/17/23 at 1237, Pre-Op, Switch to 2nd line analgesic order if pain is uncontrolled or increasing after 2 doses. Notify Anesthesiologist if total PACU dose reaches 100 mcg and pain score 5/10 or more., Indications: PainIndications:Pain Given 01/17/2023 12:57 PM CDT 25 mcg Given 01/17/2023 12:44 PM CDT 25 mcg fentaNYL (SUBLIMAZE) preservative free injection 50 mcg 50 mcg, intravenous, Every 10 min PRN, 2nd line for pain, Starting on Sun01/17/23 at 1237, Pre-Op, May administer 10 mintes after 2nd dose of 1st line analgesic agent for uncontrolled or increasing pain. Revert to 1st line dose if POSS of 3. Notify Anesthesiologist if total PACU dose reaches 100 mcg and pain score 5/10 or more., Indications: PainIndications:Pain Given 01/17/2023 1:10 PM CDT 50 mcg HYDROmorphone (DILAUDID) injection 0.5 mg 0.5 mg, intravenous, Administer over 2 Minutes, Every 2 hours PRN, pain 4-6, Starting on Sun01/17/23 at 1331 Given 01/18/2023 11:34 AM CDT 0.5 mg Given 01/18/2023 7:53 AM CDT 0.5 mg Given 01/18/2023 2:22 AM CDT 0.5 mg HYDROmorphone (DILAUDID) injection 1 mg 1 mg, intravenous, Administer over 2 Minutes, Every 2 hours PRN, pain 7-10, Starting on Sun01/17/23 at 1331 Given 01/18/2023 3:34 PM CDT 1 mg Lactated Ringer's (LR) infusion 30 mL/hr, intravenous, Continuous, Starting on Sun01/17/23 at 0845, Pre-Op, New Bag 01/17/2023 11:29 AM CDT Restarted 01/17/2023 10:53 AM CDT New Bag 01/17/2023 8:29 AM CDT 30 mL/hr 30 mL/hr Lactated Ringer's (LR) infusion 100 mL/hr, intravenous, Continuous, Starting on Sun01/17/23 at 1415, New Bag 01/19/2023 6:27 AM CDT 100 mL/hr 100 mL/hr New Bag 01/18/2023 8:37 PM CDT 100 mL/hr 100 mL/hr New Bag 01/18/2023 12:45 AM CDT 100 mL/hr 100 mL/hr metoclopramide (REGLAN) 5 mg/mL injection 5 mg 5 mg, intravenous, Every 8 hours scheduled, First dose on Sun01/17/23 at 1400 Given 01/19/2023 5:41 AM CDT 5 mg Given 01/18/2023 8:37 PM CDT 5 mg Given 01/18/2023 2:50 PM CDT 5 mg metoprolol XL (TOPROL-XL) extended release tablet 25 mg 25 mg, oral, Daily, First dose on Sun01/18/23 at 0900, Tablets that are scored may be split, but do not crush, chew, dissolve, open or otherwise manipulate tablet/capsule. Given 01/19/2023 8:11 AM CDT 25 m g Given 01/18/2023 7:53 AM CDT 25 mg ondansetron (ZOFRAN) injection 4 mg 4 mg, intravenous, Administer over 2 Minutes, Once as needed, nausea, vomiting, Starting on Sun01/17/23 at 1237, For 1 dose, Pre-Op Given 01/17/2023 12:42 PM CDT 4 m g ondansetron (ZOFRAN) injection 4 mg 4 mg, intravenous, Administer over 2 Minutes, Every 6 hours PRN, nausea, vomiting, Starting on Sun01/17/23 at 1331, Indications: Nausea and VomitingIndications:Nausea and Vomiting Given 01/17/2023 5:37 PM CDT 4 mg oxyCODONE (ROXICODONE) tablet 5 mg 5 mg, oral, Every 4 hours PRN, 1st line for pain, Starting on Sun01/18/23 at 0811, Indications: PainIndications:Pain Given 01/19/2023 8:28 AM CDT 5 mg Given 01/19/2023 2:15 AM CDT 5 mg Given 01/18/2023 8:37 PM CDT 5 mg prochlorperazine (COMPAZINE) injection 5 mg 5 mg, intravenous, Administer over 2 Minutes, Every 6 hours PRN, nausea, vomiting, Starting on Sun01/17/23 at 1246, Phase I Given 01/17/2023 12:56 PM CDT 5 mg prochlorperazine (COMPAZINE) injection 5 mg 5 mg, intravenous, Administer over 2 Minutes, Every 6 hours PRN, nausea, vomiting, Starting on Sun01/17/23 at 1331 Given 01/19/2023 8:11 AM CDT 5 mg Given 01/19/2023 2:15 AM CDT 5 mg Given 01/18/2023 3:34 PM CDT 5 mg sodium chloride 0.9% flush 0.5-20 mL 0.5-20 mL, intra-catheter, Every 8 hours scheduled, First dose on Sun01/17/23 at 1415, Flush volume based on line type and size. Given 01/17/2023 9:10 PM CDT 10 mL triamterene-hydroCHLOROthiazide (MAXZIDE,DYAZIDE) 37.5-25 mg per tablet/capsule 1 tablet/capsule 1 tablet/capsule (1 tablet), oral, Daily, First dose on Fara 01/18/23 at 0900 Given 01/19/2023 8:11 AM CDT 1 tablet/capsule Given 01/18/2023 7:52 AM CDT 1 tablet/capsule documented in this encounter Active and Recently Administered Medications Times are shown in CDT. Scheduled Medication Order 01/17/2023 01/18/2023 01/19/2023 acetaminophen (TYLENOL) tablet 1,000 mg (COMPLETED) 1,000 mg, oral, Once, On Sun01/17/23 at 0845, For 1 dose, Pre-Op, Indications: Pre-Emptive Analgesia 0828 (Given - Provider: Sammy Peres, EBEN) ceFAZolin (ANCEF) 1 gram/10 mL in sterile water (premix) 3,000 mg (COMPLETED) 3,000 mg, intravenous, at 600 mL/hr, Administer over 3 Minutes, Once, On Sun01/17/23 at 0915, For 1 dose, Pre-Op, Indications: Prophylaxis, Surgical 1105 (Given - Provider: Kip Milian Jr., CRNA) docusate sodium (COLACE) capsule 100 mg 100 mg, oral, 2 times daily, First dose on Sun01/17/23 at 2100, Indications: constipation 2110 (Not Given - Provider: Krysten Mcnair RN - Reason: Patient/family refused) 075 (Given - Provider: Sonia Navarrete RN)2036 (Given - Provider: Maria Elena Phillips RN) 0811 (Given - Provider: Sonia Navarrete RN) enoxaparin (LOVENOX) syringe 40 mg (COMPLETED) 40 mg, subcutaneous, Once, On Sun01/17/23 at 0845, For 1 dose, Pre-Op, Indications: VTE Prophylaxis 0828 (Given - Provider: Sammy Peres RN) enoxaparin (LOVENOX) syringe 40 mg 40 mg, subcutaneous, Every 12 hours scheduled, First dose on Sun01/17/23 at 2100, Indications: Deep Vein Thrombosis Prevention 2101 (Given - Provider: Krysten Mcnair RN) 075 (Given - Provider: Sonia Navarrete RN)2036 (Given - Provider: Maria Elena Phillips RN) 0811 (Given - Provider: Sonia Navarrete RN) metoclopramide (REGLAN) 5 mg/mL injection 5 mg 5 mg, intravenous, Every 8 hours scheduled, First dose on Sun01/17/23 at 1400 1540 (Given - Provider: Whitney Strange RN)2101 (Given - Provider: Krysten Mcnair RN) 0555 (Given - Provider: Krysten Mcnair RN)1450 (Given - Provider: Sonia Navarrete, EBEN)2036 (Given - Provider: Maria Elena Phillips, EBEN - Comment: pt nausous) 0541 (Given - Provider: Maria Elena Phillips, EBEN)1407 (Not Given - Provider: Sonia Navarrete RN - Reason: Patient not available - Comment: pt discharged) metoprolol XL (TOPROL-XL) extended release tablet 25 mg 25 mg, oral, Daily, First dose on Fara 01/18/23 at 0900, Tablets that are scored may be split, but do not crush, chew, dissolve, open or otherwise manipulate tablet/capsule. 0753 (Given - Provider: Sonia Navarrete RN) 0811 (Given - Provider: Sonia Navarrete RN) sodium chloride 0.9% flush 0.5-20 mL 0.5-20 mL, intra-catheter, Every 8 hours scheduled, First dose on Sun01/17/23 at 1415, Flush volume based on line type and size. 1407 (Not Given - Provider: Whitney Strange RN - Reason: IV Infusing)2110 (Given - Provider: Krysten Mcnair, EBEN) 0558 (Not Given - Provider: Krysten Mcnair RN - Reason: IV Infusing)1400 (Due)2200 (Not Given - Provider: Maria Elena Phillips RN - Reason: IV Infusing) 0543 (Not Given - Provider: Maria Elena Phillips RN - Reason: IV Infusing)1407 (Not Given - Provider: Sonia Navarrete RN - Reason: Patient not available - Comment: pt discharged) triamterene-hydroCHLORO thiazide (MAXZIDE,DYAZIDE) 37.5-25 mg per tablet/capsule 1 tablet/capsule 1 tablet/capsule (1 tablet), oral, Daily, First dose on Sun01/18/23 at 0900 0752 (Given - Provider: Sonia Navarrete RN) 0811 (Given - Provider: Sonia Navarrete RN) Continuous Medication Order 01/17/2023 01/18/2023 01/19/2023 Lactated Ringer's (LR) infusion (CANCELED) 30 mL/hr, intravenous, Continuous, Starting on Sun01/17/23 at 0845, Pre-Op, 0829 (New Bag - Provider: Sammy Peres RN)1052 (Paused - Provider: Kip Milian Jr., CRNA - Comment: Switch to gravity)1053 (Restarted - Provider: Kip Milian Jr., CRNA)1129 (New Bag - Provider: Kip Milian Jr., CRNA)1218 (Anesthesia Volume Adjustment - Provider: Kip Milian Jr., NURSING UNIT COORDINATOR)1407 (Stopped - Provider: Whitney Strange, EBEN) Lactated Ringer's (LR) infusion 100 mL/hr, intravenous, Continuous, Starting on Sun01/17/23 at 1415, 1540 (New Bag - Provider: Whitney Strange, EBEN) 0045 (New Bag - Provider: Krysten Mcnair, RN)2037 (New Bag - Provider: Maria Elena Phillips, RN) 0627 (New Bag - Provider: Maria Elena Phillips, RN)1800 (Due: Stopped) PRN Medication Order 01/17/2023 01/18/2023 01/19/2023 BUPivacaine-EPINEPHrine (MARCAINE with EPI) 0.5 %-1:200,000 preservative free injection (CANCELED) As needed, Starting on Sun01/17/23 at 1125, Intra-Op 1125 (Given - Provider: Nayan Rosario MD - Comment: abdominal sites) Carrier Fluids for Secondary Infusion - 0.9% Sodium Chloride 30 mL, intravenous, As needed, For priming tubing and/or flushing, Starting on Sun01/17/23 at 1331, 0-250 ml/hr to flush line after IV infusions when no maintenance IV ordered. Infuse 30mL at the same rate as the secondary infusion. Run as primary IV, not intended for KVO. fentaNYL (SUBLIMAZE) preservative free injection 25 mcg (CANCELED) 25 mcg, intravenous, Every 10 min PRN, 1st line for pain, Starting on Sun01/17/23 at 1237, Pre-Op, Switch to 2nd line analgesic order if pain is uncontrolled or increasing after 2 doses. Notify Anesthesiologist if total PACU dose reaches 100 mcg and pain score 5/10 or more., Indications: Pain 1244 (Given - Provider: Lizbet Castelan RN)1257 (Given - Provider: Lizbet Castelan RN) fentaNYL (SUBLIMAZE) preservative free injection 50 mcg (CANCELED) 50 mcg, intravenous, Every 10 min PRN, 2nd line for pain, Starting on Sun01/17/23 at 1237, Pre-Op, May administer 10 mintes after 2nd dose of 1st line analgesic agent for uncontrolled or increasing pain. Revert to 1st line dose if POSS of 3. Notify Anesthesiologist if total PACU dose reaches 100 mcg and pain score 5/10 or more., Indications: Pain 1310 (Given - Provider: Lizbet Castelan RN) HYDROmorphone (DILAUDID) injection 0.5 mg 0.5 mg, intravenous, Administer over 2 Minutes, Every 2 hours PRN, pain 4-6, Starting on Sun01/17/23 at 1331 1737 (Given - Provider: Whitney Strange RN) 0222 (Given - Provider: Krysten Mcnair RN)0753 (Given - Provider: Sonia Navarrete, EBEN)1134 (Given - Provider: Juan Antonio Lee RN) HYDROmorphone (DILAUDID) injection 1 mg 1 mg, intravenous, Administer over 2 Minutes, Every 2 hours PRN, pain 7-10, Starting on Sun01/17/23 at 1331 1534 (Given - Provider: Sonia Navarrete RN) hyoscyamine (OSCIMIN) disintegrating tablet 125 mcg 125 mcg, sublingual, Every 4 hours PRN, hiccups. stomach spasm, Starting on Sun01/17/23 at 1331, Indications: Urinary Incontinence ondansetron (ZOFRAN) injection 4 mg (COMPLETED) 4 mg, intravenous, Administer over 2 Minutes, Once as needed, nausea, vomiting, Starting on Sun01/17/23 at 1237, For 1 dose, Pre-Op 1242 (Given - Provider: Lizbet Castelan RN)1308 (Not Given - Provider: Lizbet Castelan RN - Reason: Other) ondansetron (ZOFRAN) injection 4 mg 4 mg, intravenous, Administer over 2 Minutes, Every 6 hours PRN, nausea, vomiting, Starting on Sun01/17/23 at 1331, Indications: Nausea and Vomiting 1737 (Given - Provider: Whitney Strange, EBEN) oxyCODONE (ROXICODONE) tablet 5 mg 5 mg, oral, Every 4 hours PRN, 1st line for pain, Starting on Fara 01/18/23 at 0811, Indications: Pain 2037 (Given - Provider: Maria Elena Phillips RN) 0215 (Given - Provider: Maria Elena Phillips RN)0828 (Given - Provider: Sonia Navarrete RN) prochlorperazine (COMPAZINE) injection 5 mg (CANCELED) 5 mg, intravenous, Administer over 2 Minutes, Every 6 hours PRN, nausea, vomiting, Starting on Sun01/17/23 at 1246, Phase I 1256 (Given - Provider: Lizbet Castelan RN) prochlorperazine (COMPAZINE) injection 5 mg 5 mg, intravenous, Administer over 2 Minutes, Every 6 hours PRN, nausea, vomiting, Starting on Sun01/17/23 at 1331 2102 (Given - Provider: Krysten Mcnair RN) 0808 (Given - Provider: Sonia Navarrete, EBEN)1534 (Given - Provider: Sonia Navarrete RN) 0215 (Given - Provider: Maria Elena Phillips RN)0811 (Given - Provider: Sonia Navarrete RN) sodium chloride 0.9% flush 0.5-20 mL 0.5-20 mL, intra-catheter, As needed, line care, Starting on Sun01/17/23 at 1331, Flush volume based on line type and size. Flush before and after each use. 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)1126 (Given - Provider: Nayan Rosario MD - Comment: On sterile field for irrigation) sterile water irrigation (CANCELED) As needed, Starting on Sun01/17/23 at 1126, Intra-Op 1126 (Given - Provider: Nayan Rosario MD - Comment: On sterile field for lubrication of instruments) documented in this encounter Orders Medications Ordered That Ed ht Not Have Been Administered Count Last Ordered Date First Ordered Date BUPivacaine-EPINEPHrine (MAR WILL with EPI) 0.5 %-1:200,000 preservative free injection 1 01/17/2023 Carrier Fluids for Secondary Infusion - 0.9% Sodium Chloride 2 01/17/2023 ceFAZolin (ANCEF) 1 gram/10 mL in sterile water (premix) 3,000 mg 1 01/17/2023 hyoscyamine (OSCIMIN) disint egrating tablet 125 mcg 1 01/17/2023 naloxone (NARCAN) 0.4 mg/mL injection 0.04-0.4 mg 1 01/17/2023 sodium chloride 0.9% flush 0.5-20 mL 2 01/02 sodium chloride 0.9% irrigation 1 sterile water irrigation 1 01/17/2023 Nursing Count Last Ordered Date First Orde red Date DISCHARGE INSTRUCTIONS 1 01/19/2023 TELEMETRY MONITORING 1 01/17/2023 WEIGH PATIENT 1 01/17/2023 Admission Count Last Ordered Date First Orde red Date ADMIT TO INPATIENT 1 01/17/2023 Discharge Count Last Ordered Date First Orde red Date DISCHARGE PATIENT 1 01/19/2023 documented in this encounter Care Teams Practice Specialist Relationship Specialty Start Date End Date Rox Bustillo NP [address] [id number] PCP - General Family Medicine 04/21/21 No, Physician 01/10/17 documented as of this encounter
--- OUTSIDE RECORDS SUMMARY | 2024-06-13 23:57 | XMS_ITS | Encounter Summary ---
Author Organization [facility] Healthcare Address [address] [place] [address] Care Team Providers Care Financial Reporting Advisor Name Role Phone No, Physician Unavailable Rox Bustillo NP Primary Care Provider [phone] Reason for Visit * Reason Comments Leg Pain Encounter Details Date Type Department Care Team ([facility] st Contact Info) Description 11/13/2022 3:49 AM CDT - 11/13/2022 6:00 AM CDT Emergency [facility] Emergency Department 1 [place] [address] Carlos Awan MD 1 [facility] [place] [address] [place] [id number] Right calf pain (Primary Dx) Discharge Disposition: Discharge to home [...] on file 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 * Myalgias (Japanese) documented in this encounter Medications at Time [...] nausea or vomiting. 15 tablet 06/20/2020 3 TiZANidine (ZANAFLEX) 4 mg capsule Take 1 capsule (4 mg total) by mouth 3 (three) times a day 90 capsule 11/13/2022 3 traMADol (ULTRAM) 50 mg tablet Take 1-2 tablets (50-100 mg total) by mouth every 6 (six) hours as needed for pain (1 tablet for mild to moderate pain or 2 tablets for severe pain) 20 tablet 09/25/2018 3 documented as of this encounter Ordered Prescriptions Prescription Sig Dispense Quantity Refills Last Filled Start Date End Date TiZANidine (ZANAFLEX) 4 mg capsule Take 1 capsule (4 mg total) by mouth 3 (three) times a day 90 capsule 11/13/2022 3 documented in this encounter Discharge Disposition Disposition Code Departure Means Destination Comment s Discharge to home or self care documented in this encounter ED Notes * Carlos Awan MD - 11/13/2022 4:45 AM CDT HPI Chief Complaint Patient presents with ??? Leg Pain 22-year-old with a history of hypertension, morbid obesity here with the complaints of pain in the right calf on and off for last 3 days. Patient states that last night was very intense. She denied any trauma no previous history of DVT. She denies any chest pain or shortness of breath. Patient History: Patient Active Problem List Diagnosis Date Noted ??? Heartburn 10/24/2022 ??? Achilles tendinitis of right lower extremity 03/09/2020 ??? Cervicitis 04/09/2019 ??? Biliary dyskinesia 05/17/2017 ??? BMI 45.0-49.9, adult (HCC) 05/17/2017 ??? Epigastric pain 05/17/2017 Past Medical History: Diagnosis Date ??? Anemia [...] History Tobacco Use ??? Smoking status: Never ??? Smokeless tobacco: Never Vaping Use ??? Vaping Use: Never used Substance and Sexual Activity ??? Alcohol use: Yes Comment: occasional ??? Drug use: No ??? Sexual activity: Defer Partners: Male Social History Social History Narrative ??? Not on file Review of Systems Review of Systems Constitutional: Negative. HENT: Negative. Respiratory: Negative. Cardiovascular: Negative. Gastrointestinal: Negative. Genitourinary: Negative. Musculoskeletal: Positive for myalgias. Hematological: Negative. Psychiatric/Behavioral: Negative. Physical Exam ED Triage Vitals [11/13/22 0202] Temp Pulse Resp BP SpO2 (!) 35.9 ??C (96.7 ??F) 79 18 149/94 99 % Temp src Heart Rate Source Patient Position BP Location FiO2 (%) Temporal -- -- -- -- Height Height Method Weight Weight Method -- -- -- -- Physical Exam Vitals and nursing note reviewed. Constitutional: Appearance: She is obese. HENT: Head: Normocephalic and atraumatic. Nose: Nose normal. Eyes: Pupils: Pupils are equal, round, and reactive to light. Cardiovascular: Rate and Rhythm: Normal rate and regular rhythm. Pulmonary: Effort: Pulmonary effort is normal. Breath sounds: Normal breath sounds. Musculoskeletal: Cervical back: Normal range of motion. Comments: Examination of her right calf mild tenderness on palpation, no erythema or swelling noted Skin: General: Skin is warm. Neurological: General: No focal deficit present. Mental Status: She is alert. Psychiatric: Mood and Affect: Mood normal. Results for orders placed or performed during the hospital encounter of 11/13/22 CBC with auto differential Result Value Ref Range WBC 10.9 (H) 3.8 - 9.9 K/cumm Hgb 11.6 (L) 11.9 - 15.5 g/dL Hct 37.1 35.6 - 45.5 % Plt 277 150 - 400 K/cumm MPV 11.9 9.1 - 12.3 fL RBC 4.68 3.90 - 5.20 M/cumm MCV 79.3 (L) 81.3 - 96.4 fL MCH 24.8 (L) 27.1 - 33.3 pg MCHC 31.3 (L) 32.3 - 35.7 g/dL RDW CV 16.9 (H) 11.1 - 14.9 % RDW SD 47.8 35.7 - 48.1 fL NRBC abs 0.00 0.00 - 0.01 K/cumm Comprehensive metabolic panel Result Value Ref Range Sodium 139 135 - 145 mmol/L Potassium, pl 4.2 3.3 - 4.9 mmol/L Chloride 101 97 - 110 mmol/L CO2 28 22 - 32 mmol/L Anion gap 11 2 - 15 mmol/L BUN 21 8 - 25 mg/dL Creatinine 0.64 0.60 - 1.10 mg/dL Glucose 105 70 - 199 mg/dL Calcium 9.3 8.5 - 10.3 mg/dL Bilirubin, total 0.2 0.1 - 1.2 mg/dL Protein, pl 7.6 6.5 - 8.5 g/dL Albumin 3.8 3.5 - 5.0 g/dL Alk phos 92 40 - 130 Units/L ALT 21 7 - 45 Units/L AST 24 10 - 45 Units/L D-dimer, quantitative Result Value Ref Range D-Dimer 265 <=499 ng/mL FEU Protime-INR Result Value Ref Range PT 11.4 9.2 - 13.5 sec INR 1.0 0.9 - 1.2 Differential, auto Result Value Ref Range Neutrophil abs 7.1 (H) 1.7 - 6.5 K/cumm Imm gran abs 0.1 0.0 - 0.1 K/cumm Lymphocyte abs 3.1 0.8 - 3.3 K/cumm Monocyte abs 0.5 0.2 - 0.8 K/cumm Eosinophil abs 0.1 0.0 - 0.5 K/cumm Basophil abs 0.0 0.0 - 0.1 K/cumm Neutrophil pct 65.2 % Imm gran pct 0.5 % Lymphocyte pct 28.2 % Monocyte pct 4.8 % Eosinophil pct 1.0 % Basophil pct 0.3 % eGFR Result Value Ref Range eGFR 126 mL/min/1.73 m2 MDM Medical Decision Making Amount and/or Complexity of Data Reviewed Labs: ordered. ED Course as of 11/13/22522 Time: 11/13 521 Comment: Notified pt about her lab work , recommended her to take meds as prescribed. By: Carlos Awan MD Final diagnoses: Right calf pain Carlos Awan MD 11/13/227 Carlos Awan MD 11/13/22521 * Archana Tobias RN - 11/13/2022 2:00 AM CDT Pt c/o right leg pain x 3 days. Pt denies injury. States it feels like a burning sensation. documented in this encounter Plan of Treatment Not on file documented as of this encounter Procedures Procedure Name Priority Date/Time Associated Diagnosis Comments EGFR STAT 11/13/2022 4:33 AM CDT DIFFERENTIAL AUTO STAT 11/13/2022 4:3 3 AM CDT CBC WITH AUTO DIFFERENTIAL STAT 11/13/2022 4:33 AM CDT PROTIME-INR STAT 11/13/2022 4:33 AM CDT D-DIMER, QUANTITATIVE STAT 11/13/2022 4:33 AM CDT COMPREHENSIVE METABOLIC PANEL STAT 11/13/2022 4:33 AM CDT documented in this encounter Results * eGFR (11/13/2022 4:33 AM CDT) [facility] Signature eGFR 126 mL/min/1. 73 m2 [facility] ([place]) Comment: [...] interpretive data was last reviewed 2021. Blood 11/13/2022 4:33 AM CDT 11/13/2022 4:38 AM CDT us Carlos Awan MD LAB BLOOD ORDERABLES Final Res ult [facility] ([place]) 1 [facility] Department [place] [address] * (ABNORMAL) Differential, auto (11/13/2022 4:33 AM CDT) Neutrophil abs 7.1(H) 1.7 - 6.5 K/cumm [facility] ([place]) Imm gran abs 0.1 0.0 - 0.1 K/cumm [facility] ([place]) Lymphocyte abs 3.1 0.8 - 3.3 K/cumm [facility] ([place]) Monocyte abs 0.5 0.2 - 0.8 K/cumm [facility] ([place]) Eosinophil abs 0.1 0.0 - 0.5 K/cumm [facility] ([place]) Basophil abs 0.0 0.0 - 0.1 K/cumm [facility] ([place]) Neutrophil pct 65.2 % [facility] ([place]) Comment: Interpretive Data Percent cell count reference ranges are not reported, since discordance with absolute values may lead to misinterpretation of CBC data. Current Interpretive Data was last revised on 2017. Imm gran pct 0.5 % [facility] ([place]) Comment: Interpretive Data Percent cell count reference ranges are not reported, since discordance with absolute values may lead to misinterpretation of CBC data. Current Interpretive Data was last revised on 2017. Lymphocyte pct 28.2 % [facility] ([place]) Comment: Interpretive Data Percent cell count reference ranges are not reported, since discordance with absolute values may lead to misinterpretation of CBC data. Current Interpretive Data was last revised on 2017. Monocyte pct 4.8 % [facility] ([place]) Comment: Interpretive Data Percent cell count reference ranges are not reported, since discordance with absolute values may lead to misinterpretation of CBC data. Current Interpretive Data was last revised on 2017. Eosinophil pct 1.0 % [facility] ([place]) Comment: Interpretive [...] Data was last revised on 2017. Blood 11/13/2022 4:33 AM CDT 11/13/2022 4:40 AM CDT us Carlos Awan MD LAB BLOOD ORDERABLES Final Res ult [facility] ([place]) [address] [place] [address] * Protime-INR (11/13/2022 4:33 AM CDT) PT 11.4 9.2 - 13.5 sec [facility] ([place]) INR 1.0 0.9 - 1.2 [facility] ([place]) Comment: Interpretive data Oral anticoagulant therapeutic ranges: Venous thromboembolism prophylaxis or treatment: 2.0-3.0 CARDIOLOGY Standard range: 2.0-3.0 High-intensity range: 2.5-3.5 Refer to indication-specific guidelines for appropriate target ranges for prosthetic heart valve replacement. Current interpretive data was last revised on 2019. Blood 11/13/2022 4:33 AM CDT 11/13/2022 4:38 AM CDT us Carlos Awan MD LAB BLOOD ORDERABLES Final Res ult [facility] ([place]) 1 [place] [address] * D-dimer, quantitative (11/13/2022 4:33 AM CDT) D-Dimer 265 <=499 ng/mL FEU [facility] ([place]) Comment: Interpretive data FDA approved the D-dimer, in conjunction with a low or moderate pretest probability score, to exclude venous thromboembolic events (VTE) (PE and DVT) in outpatients when the D-dimer result is < 500 ng/ml FEU. ?? Evidence supports using an age-adjusted D-dimer cut-off for outpatients older than 50 (age x 10) to improve specificity without sacrificing sensitivity. Example: age 68, VTE cut-off 680 ng/ml FEU. References; Schouten HT et al. Brit Med J. 2013;346:f2492. Pascale RENEE et al. Annals Int Med. 2015;163:701-11. Current interpretive data was last revised on 2019. Blood 11/13/2022 4:33 AM CDT 11/13/2022 4:38 AM CDT us Carlos Awan MD LAB BLOOD ORDERABLES Final Res ult [facility] ([place]) 1 [facility] Department [place] [address] * Comprehensive metabolic panel (11/13/2022 4:33 AM CDT) Sodium 139 135 - 145 mmol/L [facility] ([place]) Potassium, pl 4.2 3.3 - 4.9 mmol/L [facility] ([place]) Chloride 101 97 - 110 mmol/L [facility] ([place]) CO2 28 22 - 32 mmol/L [facility] ([place]) Anion gap 11 2 - 15 mmol/L [facility] ([place]) BUN 21 8 - 25 mg/dL [facility] ([place]) Creatinine 0.64 0.60 - 1.10 mg/dL [facility] ([place]) Glucose 105 70 - 199 mg/dL [facility] ([place]) [...] interpretive data was last revised 2022. Calcium 9.3 8.5 - 10.3 mg/dL [facility] ([place]) Bilirubin, total 0.2 0.1 - 1.2 mg/dL [facility] ([place]) Protein, pl 7.6 6.5 - 8.5 g/dL [facility] ([place]) Albumin 3.8 3.5 - 5.0 g/dL [facility] ([place]) Alk phos 92 40 - 130 Units/L [facility] ([place]) ALT 21 7 - 45 Units/L [facility] ([place]) AST 24 10 - 45 Units/L [facility] ([place]) Comment: Hemolysis present. ??Results may be affected. Slightly Hemolyzed Specimen Blood 11/13/2022 4:33 AM CDT 11/13/2022 4:38 AM CDT Carlos Awan MD LAB BLOOD ORDERABLES Final Res ult [facility] ([place]) 1 [facility] Department [place] [address] * (ABNORMAL) CBC with auto differential (11/13/2022 4:33 AM CDT) WBC 10.9(H) 3.8 - 9.9 K/cumm [facility] ([place]) Hgb 11.6(L) 11.9 - 15.5 g/dL [facility] ([place]) Hct 37.1 35.6 - 45.5 % [facility] ([place]) Plt 277 150 - 400 K/cumm [facility] ([place]) MPV 11.9 9.1 - 12.3 fL [facility] ([place]) RBC 4.68 3.90 - 5.20 M/cumm [facility] ([place]) MCV 79.3(L) 81.3 - 96.4 fL [facility] ([place]) MCH 24.8(L) 27.1 - 33.3 pg [facility] ([place]) MCHC 31.3(L) 32.3 - 35.7 g/dL [facility] ([place]) RDW CV 16.9(H) 11.1 - 14.9 % [facility] ([place]) RDW SD 47.8 35.7 - 48.1 fL [facility] ([place]) NRBC abs 0.00 0.00 - 0.01 K/cumm [facility] ([place]) Blood 11/13/2022 4:33 AM CDT 11/13/2022 4:40 AM CDT Carlos Awan MD LAB BLOOD ORDERABLES Final Res ult [facility] ([place]) 1 [facility] Department [place] [address] documented in this encounter Visit Diagnoses Diagnosis Right calf pain- Primary documented in this encounter Administered Medications Inactive Administered Medications - up to 3 most recent administrations Medication Order MAR Action Action Date Dose Rate Site HYDROcodone-acetaminophen (NORCO) 5-325 mg per tablet 1 tablet 1 tablet, oral, Once, On Sun11/13/22 at 0526, For 1 dose, Indications: PainIndications:Pain Given 11/13/2022 5:30 AM CDT 1 tablet ondansetron (ZOFRAN) injection 4 mg 4 mg, intravenous, Administer over 2 Minutes, Once, On Sun11/13/22 at 0526, For 1 dose Given 11/13/2022 5:30 AM CDT 4 mg documented in this encounter Active and Recently Administered Medications Times are shown in CDT. Scheduled Medication Order 11/11/2022 11/12/2022 11/13/2022 HYDROcodone-acetaminophen (NORCO) 5-325 mg per tablet 1 tablet (COMPLETED) 1 tablet, oral, Once, On Sun11/13/22 at 0526, For 1 dose, Indications: Pain 0530 (Given - Provid er: Patricia Alvares RN) ondansetron (ZOFRAN) injection 4 mg (COMPLETED) 4 mg, intravenous, Administer over 2 Minutes, Once, On Sun11/13/22 at 0526, For 1 dose 0530 (Given - Provid er: Patricia Alvares RN) documented in this encounter Care Teams Financial Reporting Advisor Relationship Specialty [place] [address] [place] [address] PCP - General Family Medicine 04/21/21 No, Physician 01/10/17 documented as of this encounter
--- OUTSIDE RECORDS SUMMARY | 2024-06-13 23:57 | XMS_ITS | Encounter Summary ---
Author Organization [facility] Healthcare Address [address] [place] [address] Care Team Providers Care Loose Hand Packer Name Role Phone No, Physician Unavailable Rox Bustillo NP Primary Care Provider [phone] Reason for Referral * Diagnostic Imaging (Routine) - Closed Specialty Diagnoses / Procedures Referred By Contac t Referred To Contact Diagnoses Cyst of ovary, unspecified laterality Procedures US Pelvis W Endovaginal Reuben Kirby MD [address] [place] [address] DR ADRIANNE SAINZ [address] [place] [address] Phone: tel: fax: [address] [phone] Referral ID Status Reason Start Date Expiration Date Visits Re quested Visits Authorized [id number] Closed 07/06/2022 08/05/2023 1 1 Reason for Visit * Diagnostic Imaging (Routine) - Closed Specialty Diagnoses / Procedures Referred By Contac t Referred To Contact Diagnoses Cyst of ovary, unspecified laterality Procedures US Pelvis W Endovaginal Reuben Kirby MD [address] [place] [address] DR ADRIANNE Appiah [address] [address] Phone: tel: fax: [address] [phone] Referral ID Status Reason Start Date Expiration Date Visits Re quested Visits Authorized [id number] Closed 07/06/2022 08/05/2023 1 1 Encounter Details Date Type Department Care Team (Latest Contact Info) Description 08/18/2022 2:52 PM CDT - 08/18/2022 11:59 PM CDT Hospital Encounter [facility] [address] [place] [address] Cyst of ovary, unspecified laterality Discharge Disposition: Discharge to home or self care Social History Tobacco Use Types Packs/Day Years Used Date Smoking Tobacco: Never Smokeless Tobacco: Never Alcohol Use Standard Drinks/Week Comments Yes 0 (1 standard drink = 0.6 oz pur e alcohol) occasional Comments No Sex and Gender Information Value Date Recorded Sex Assigned at Not on file 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 US PELVIS W ENDOVAGINAL REASON FOR STUDY: ?? N83.209 ?? , Intermittent pelvic pain for 1-5 years. ??Cycle every 3-4 months which are irregular. TECHNIQUE: Grayscale ultrasound of the pelvic contents was performed with ?? transabdominal and transvaginal ??transducer. ?? COMPARISON: None. FINDINGS: Examination was reported to be suboptimal secondary to the body habitus. ?? UTERUS: ??The uterus is anteverted. ??The uterus is ??homogenous ??in echotexture and measures ??10.5 x 5.2 x 6 ??cm. ??Nabothian cysts are noted. ENDOMETRIUM: The endometrium measures ??1 cm ??in thickness. ??Endometrium is slightly heterogeneous. RIGHT OVARY: The right ovary measures ??5.0 x 2.8 x 4.2 ??cm. ??There is documentation of color Doppler flow in the right ovary. ??Prominent cystic structure measures 4.1 x 2.6 x 3.7 cm. ??There is an adjacent smaller cystic structure. LEFT OVARY: The left ovary measures ??5.3 x 3.337 ??cm. ??There is documentation of color Doppler flow in the left ovary. ??Prominent cystic structure measures 3.4 x 2.0 x 2.7 cm. ??Other smaller cystic structures. PELVIC FLUID: ?? There is no evidence of free fluid in the pelvis. OTHER: ?? No other significant findings. IMPRESSION: 1. ?? No acute abnormality. ?? 2. ?? Cystic structures in the ovaries bilaterally, on the right 4.1 cm on the left 3.4 cm most likely functional cysts, larger than follicles. ??By consensus guidelines these are considered most likely benign and no specific further workup is needed. 3. ?? Nabothian cyst incidentally noted. THIS IS AN ELECTRONICALLY VERIFIED FINAL REPORT 08/18/2022 4:03 PM - Electronically signed by ??Kain Mcintyre M.D. CH: D: ??08/18/2022 4:03 PM T: ??08/18/2022 4:03 PM Report ID: [id number] Reading Location: ??[id number] Procedure Note Kain Mcintyre Jr., MD - 08/18/2022 EXAM DESCRIPTION: US PELVIS W ENDOVAGINAL REASON FOR STUDY: N83.209 , Intermittent pelvic pain for 1-5 years. Cycle every 3-4 months whichare irregular. TECHNIQUE: Grayscale ultrasound of the pelvic contents was performed with transabdominal and transvaginal transducer. COMPARISON: None. FINDINGS: Examination was reported to be suboptimal secondary to the body habitus. UTERUS: The uterus is anteverted. The uterus is homogenous inechotexture and measures 10.5 x 5.2 x 6 cm. Nabothian cysts are noted. ENDOMETRIUM: The endometrium measures 1 cm in thickness. Endometrium is slightly heterogeneous. RIGHT OVARY: The right ovary measures 5.0 x 2.8 x 4.2 cm. There is documentation of color Doppler flow in the right ovary. Prominent cystic structure measures 4.1 x 2.6 x 3.7 cm. There is an adjacent smallercystic structure. LEFT OVARY: The left ovary measures 5.3 x 3.337 cm. There isdocumentation of color Doppler flow in the left ovary. Prominent cystic structuremeasures 3.4 x 2.0 x 2.7 cm. Other smaller cystic structures. PELVIC FLUID: There is no evidence of free fluid in the pelvis. OTHER: No other significant findings. IMPRESSION: 1. No acute abnormality. 2. Cystic structures in the ovaries bilaterally, on the right 4.1 cm onthe left 3.4 cm most likely functional cysts, larger than follicles. Byconsensus guidelines these are considered most likely benign and no specific further workup is needed. 3. Nabothian cyst incidentally noted. THIS IS AN ELECTRONICALLY VERIFIED FINAL REPORT 08/18/2022 4:03 PM - Electronically signed by Kain Mcintyre M.D. CH: Report ID: [id number] Reading Location: [id number] us Reuben Kirby MD IM US PROCEDURES Farida l Result documented in this encounter Visit Diagnoses Diagnosis Cyst of ovary, unspecified laterality documented in this encounter Care Teams Loose Hand Packer Relationship Specialty Start Date End Date Rox Bustillo NP [address] [address] PCP - General Family Medicine 04/21/21 No, Physician 01/10/17 documented as of this encounter
--- OUTSIDE RECORDS SUMMARY | 2024-06-13 23:57 | XMS_ITS | Encounter Summary ---
Author Organization [facility] Healthcare Address [address] [place] [address] Care Team Providers Care Environmental Compliance Officer Name Role Phone No, Physician Unavailable Rox Bustillo NP Primary Care Provider Encounter Details Date Type Department Care Team (Latest Contact Info) Description 04/03/2023 8:30 AM CDT - 04/03/2023 11:59 PM CDT Hospital Encounter [facility] Nutrition and Diabetic Education 1 [facility] Room [address] [place] [address] Fields, Yareli Lechuga, RD [address] [place] [address] Discharge Disposition: Discharge to home or self [...] How often do you attend voodoo or yazidi serv ices? 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 Gender Identity Not on file Sexual Orientation Not on file documented as of this encounter Last Filed Vital Signs Vital Sign Reading Time Taken Comments Blood Pressure - - Pulse - - Temperature - - Respiratory Rate - - Oxygen Saturation - - Inhaled Oxygen Concentration - - Weight - - Height 165.1 cm (5' 5 ) 04/03/2023 2:17 PM CDT Body Mass Index - - [...] Progress Notes * Yareli Fields, RD - 04/03/2023 8:30 AM CDT Outpatient Nutrition Counseling Assessment Patient Name: Maeve Ross : 2000 Sex: female Encounter Date: 04/03/2023 Time Calculation (min): 30 min Visit #: [address] Rosario to nutrition counseling for s/p bariatric sleeve surgery . She has a past medical history of Anemia, Hypertension, Obesity, Ovarian cyst, and Sleep apnea. Assessment: Pt is alone today for follow up nutritional counseling. She weighs 296.3 lbs. This is a 10.7 lb wt loss/ 2 months. Pt reports I am always hungry & ready to eat. Drinking Premier protein shakes is like drinking sugar packets to me now. Pt was given bariatric packet #6 today and we discussed it. She is not walking or exercising. Her gym membership has relapsed but she plan on restarting it She admits to eating out too frequently at [employer]. April Bariatric Support Group information wasgiven and encouraged patient to attend. Diet Recall: Breakfast: skip Lunch: lunch meat, cheese. Dinner: none Snacks: none Beverages: water. Personal Goals: lose more weight, stay focused Support System: family Barriers to change: motivation is lacking Exercise: none Anthropometrics: Ht 165.1 cm (5' 5 ) BMI 50.94 kg/m?? IBW/kg (Calculated) : 56.7 kg. Today's weight is 296.3 lbs. Wt Readings from Last 3 Encounters: [...] deficit Related to: Food choices, Lack of adherence, Lack of education Evidenced by: Patient interview, Physical finding, BMI 40 or more Nutritional Needs: Total Kcal/kg Estimated Needs : 1342.65 Kcal/k Total Protein Estimated Needs (gm): 134.27 Protein Needs Based on g/k.0 Total Fat Estimated Needs (gm): 29.84 Fat Needs Based on % of Calories: 20 Total Fluid Estimated Needs: 1342.65 Fluid Needs Based on : 1 ml/kcal Intervention: Education given 6th visit: Following bariatric surgery Weight reduction: focus on eating behaviors Rebounding from Relapse Get that weight to Moving Fluid needs/goals after Bariatric Surgery Post-surgery meal plan - 6 months after bariatric surgery and beyond Goal Setting Portions sizes, eating patterns, awareness of hunger, emotional eating, environmental cues, understanding patterns What do I do: potential problems and suggested solutions? Educated and counseled pt on basics of [...] ordering kids or lunch meals, and asking buffet server for to-go box at beginning of meal. Discussed choosing lean protein and opting for unsaturated fats over saturated fats. Encouraged Maeve Ross to incorporate physical activity as permitted by MD with overall goal of 150 minutes per week. Patient Center Goals: lose more weight Read labels. Count carb, protein & fat grams. Measure portion sizes. Keep a food diary. Eat more lean protein/ low carb veggies/ salad. Avoid fried/high fat/high calorie foods. Walk or exercise 3-4 times/week for 30-60 min each. Avoid mindless eating. Avoid eating after 7 pm. F/U with RD in 4-6 weeks. Monitoring/Evaluation: Weekly weigh ins Keep a food diary or log on My Fitness Pal Take waist circumference Evaluation of Learning: Pt Maeve Ross needs further instruction and needs review/assistance Pt is in Action stage of change. Expect adherence to recommendations to be fair. Pt to follow up in 4-6 weeks for support/reinforcement. Communication sent to referring provider with education provided and desired outcomes Yareli Fields RDN, LDN. documented in this encounter Plan of Treatment Not on file documented as of this encounter Visit Diagnoses Not on filedocumented in this encounter Care Teams Environmental Compliance Officer Relationship Specialty Start Date End Date Rox Bustillo NP [address] [address] PCP - General Family Medicine 04/21/21 No, Physician 01/10/17 documented as of this encounter
--- OUTSIDE RECORDS SUMMARY | 2024-06-13 23:57 | XMS_ITS | Encounter Summary ---
Author Organization [facility] Healthcare Address [address] [place] [address] Care Team Providers Care Cargo Vessel Stewardess Name Role Phone No, Physician Unavailable Rox Bustillo NP Primary Care Provider + [phone] Reason for Visit * Auth/Cert (Routine) Specialty Diagnoses / Procedures Referred By Contac t Referred To Contact Diagnoses Morbid obesity (HCC) Morbid obesity (HCC) [E66.01] Procedures HI LAPS GSTRC RSTRICTIV PX LONGITUDINAL GASTRECTOMY LAPAROSCOPIC GASTRECTOMY - SLEEVE Referral ID Status Reason Start Date Expiration Date Visits Re quested Visits Authorized [id number] 1 1 Encounter Details Date Type Department Care Team (Late st Contact Info) Description 01/17/2023 10:53 AM CDT Anesthesia Event [facility] Operating Room [address] [place] [address] [place] [id number] [address] Christian Frye MD [address] [place] [id number] Anesthesia Record Procedure Summary Procedure Name Responsible Anesthesiologist Anesthesia Start Time Anesthesia Stop Time LAPAROSCOPIC GASTRECTOMY - SLEEVE (Abdomen) Gabbie Vizcaino MD 01/17/23 1053 01/17/23 1239 Events Date Time Event Comment 01/17/2023 0859 1053 An Start 1053 An Start Data 1053 In Room 1058 An Induction The patient was reevaluated immediately before moderate or deep sedation use and before anesthesia induction. 1101 An Intubation 1102 Anesthesia Ready 1117 Proc Start 1117 Incision Start [address] Carrillo Milian CRNA for lunch. ENGRAVER OPTICAL FRAMES remains immediately available. 1230 Proc Fin 1230 An Extubation 1233 an stop data 1236 Out of Room 1239 Handoff to RN I completed my handoff to the receiving nurse during which we: 1. Patient identified 2. Responsible provider identified 3. Pertinent medical history reviewed 4. Procedure type and surgical course discussed 5. Intraoperative anesthetic management and any significant issues discussed 6. Expectations and concerns for postop period discussed 7. Questions solicited from receiving nurse 8. Patient disposition at the time of handoff: No value filed. 1239 An Stop Meds Name Total midazolam 2 mg fentaNYL 200 mcg propofol 250 mg lidocaine (cardiac) syringe 2 % 100 mg rocuronium 75 mg succinylcholine 200 mg ondansetron 4 mg dexmedeTOMIDine infusion 48 mcg ketamine 10 mg/mL - 5 mL 50 mg ceFAZolin (ANCEF) 1 gram/10 mL in steril e water (premix) 3,000 mg 3,000 mg ketorolac 30 mg sugammadex 200 mg HYDROmorphone 1 mg/mL 0.5 mg Lactated Ringer's (LR) infusion 1,500 mL * Agents Name O2 N2O Air Sevoflurane Inspired Sevoflurane * Blood No blood administrations on file. Lines, Drains, and Airways Type Details Placement Removal Peripheral IV Placement Date: 01/17/23; Placement Time: 828; Catheter Size: 20 G; Orientation: Right; Location: Antecubital; Site Prep: Chlorhexidine; Inserted by: Sammy TREADWELL; Insertion Attempts: 1; Patient Tolerance: Tolerated well; Removal Date: 01/19/23; Removal Time: 1417 01/17/23 0829 by Sammy Peres RN 01/19/23 141 by Sonia Navarrete, RN Peripheral IV Placement Date: 01/17/23; Placement Time: 08; Catheter Size: 22 G; Orientation: Left, Posterior; Location: Hand; Inserted by: Shani TREADWELL; Insertion Attempts: 1; Patient Tolerance: Tolerated well; Removal Date: 01/18/23; Removal Time: 0803; Removal Reason: Per patient/family request 01/17/23 0834 by Sammy Peres RN 01/18/23 0803 by Sonia Navarrete RN ETT Placement Date: 01/17/23; Placement Time: 1111 (created via procedure documentation); Mask Ventilation: 0 (rsi); Technique: Direct laryngoscopy; Type: ETT - single; Single Lumen Tube Size: 7.5 mm; Laryngoscope: Anthony; Blade Size: 3; Location: Oral; Grade View: Grade I; Insertion Attempts: 1; Placement Verification: Auscultation, Capnometry; Airway Comment: Atraumatic intubation performed by Kip Milian CRNA. ; Removal Date: 01/17/23; Removal Time: 1230 01/17/23 1111 by Kip Milian Jr., CRNA 01/17/23 1230 by Kip Milian Jr., CRNA RETIRED Surgical Site 01/17/23; 1224; Abdomen; Incision x5; 04/13/24; Not present on admission 01/17/23 1224 by Sara Adkins RN 04/13/24 0000 by Leslye Alejo RN documented in this encounter Social History Tobacco [...] week 01/18/2023 How often do you attend latter day or amish serv ices? 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 Gender Identity Not on file Sexual Orientation Not on file documented as of this encounter OR Notes * Anesthesia Postprocedure Evaluation - Gabbie Vizcaino MD - 01/17/2023 3:00 PM CDT Patient: Maeve Ross Procedure Summary Date: 01/17/23 Room / Location: [facility] OR [address] [place] [address] OPERATING ROOM Anesthesia Start: 1053 Anesthesia Stop: 1239 Procedure: LAPAROSCOPIC GASTRECTOMY - SLEEVE (Abdomen) Diagnosis: Morbid obesity (HCC) (Morbid obesity (HCC) [E66.01]) Providers: Nayan Rosario MD Responsible Provider: Gabbie Vizcaino MD Anesthesia Type: general ASA Status: 3 Anesthesia Type: general Last vitals BP 146/84 (BP Location: Left arm, Patient Position: Sitting;Lying) Comment (Patient Position): Sitting up in bed. Pulse 86 Temp (!) 35.8 ??C (96.4 ??F) (Temporal) Resp 22 SpO2 96% Anesthesia Post Evaluation Patient location during evaluation: PACU Patient participation: complete - patient participated Level of consciousness: fully awake Pain management: satisfactory to patient Airway patency: adequate Cardiovascular status: acceptable Respiratory status: acceptable Hydration status: acceptable Pt is: normothermic Nausea/Vomiting status: none No notable events documented. * Anesthesia Procedure Notes - Kip Milian Jr., CRNA - 01/17/2023 11:09 AM CDTAssociated Order(s): Airway Airway Patient location: OR Urgency: elective Indications for airway management: anesthesia Difficult airway: no Staff: Placed by: ENGRAVER OPTICAL FRAMES: Kip Milian Jr., CRNA Emergent airway documentation: Risks and benefits discussed: yes Consent obtained: yes Consent given by: patient Airway prep: Preoxygenated: yes Patient position: sniffing Mask difficulty assessment: 0 - not attempted (rsi) Spontaneous ventilation during airway: absent Sedation level during airway: GA Final airway details: Final airway type: endotracheal airway Tube type: ETT ETT size: 7.5 mm Technique used for successful ETT placement: direct laryngoscopy Devices/Methods used in placement: stylet Insertion site: oral Blade type: Anthony Video blade type: Pathak Blade size: 3 Cormack-Lehane (direct): grade I - full view of glottis Cormack-Lehane (video): grade I - full view of glottis ETT to teeth: 21 cm Placement verified by: auscultation and CO2 detection Airway secured with: silk tape Number of attempts: 1 Additional comments: Atraumatic intubation performed by Kip Milian CRNA. * Anesthesia Preprocedure Evaluation - Kizzy Bledsoe MD - 01/17/2023 8:05 AM CDT Images from the original note were not included. Anesthesia Evaluation Maeve Ross is a 22 y.o. female Procedure(s): LAPAROSCOPIC GASTRECTOMY - SLEEVE Pre-Op Diagnosis Codes: * Morbid obesity (HCC) [E66.01] HISTORY Past Medical History Information obtained from: patient and chart. Neurological Pertinent negatives: seizures and CVA/stroke Cardiovascular + Hypertension Pertinent negatives: [place] ; pacemaker/ICD and negative for CHF Respiratory + Sleep apnea (LEDA) Prescribed device: PAP compliant and CPAP. Pertinent negatives: COPD; asthma; no O2 use outside the hospital and non-smoker Hepatic / Heme + History of anemia Gastrointestinal Pertinent negatives: GERD Renal / Pertinent negatives: renal disease Endocrine / Other + Obesity (BMI >30)- morbid obesity (BMI>40). Pertinent negatives: diabetes mellitus and thyroid disease Functional Capacity Functional capacity: 4-6 METs Day of Surgery assessments + Possibility of assessed - HCG negative (see labs). Review of Systems Pertinent negatives: SOB; recent cold/flu; fever and chest pain Patient Active Problem List Diagnosis ??? Biliary dyskinesia ??? BMI 45.0-49.9, adult (HCC) ??? Epigastric pain ??? Cervicitis ??? Achilles tendinitis of right lower extremity ??? Heartburn ??? Morbid obesity (HCC) Past Medical History: Diagnosis Date ??? Anemia ??? Hypertension ??? Obesity ??? Ovarian cyst ??? Sleep apnea Past Surgical History: Procedure Laterality Date ??? CHOLECYSTECTOMY ??? OTHER SURGICAL HISTORY myringotomy ??? OTHER SURGICAL HISTORY exploratory laparoscopic cyst on ovary ??? UPPER GASTROINTESTINAL ENDOSCOPY 11/14/2022 OB History No obstetric history on file. Allergies Allergen Reactions ??? Penicillins Hives and Swelling Med List Status: Nurse Complete Set By: Kaitlin Fall RN at 01/04/2023 2:16 PM Taking? Last Dose Start Date End Date Provider medroxyPROGESTERone (PROVERA) 10 mg tablet More than a month 07/05/22 -- Tracey Foster MD metoprolol XL (TOPROL-XL) 25 mg extended release tablet 01/17/2023 05/15/22 -- Tracey Foster MD triamterene-hydroCHLOROthiazide 37.5-25 mg per tablet 01/16/2023 01/14/20 -- Tracey Foster MD No current facility-administered medications for this encounter. Social History Tobacco Use Smoking Status Never ??? Passive exposure: Past Smokeless Tobacco Never Alcohol Use: Not At Risk (01/04/2023) AUDIT-C ??? Frequency of Alcohol Consumption: Monthly or less ??? Average Number of Drinks: Patient does not drink ??? Frequency of Binge Drinking: Never Substance and Sexual Activity Drug Use No Family History Problem Relation Age of Onset ??? Anemia Mother ??? Cancer Father ??? Bladder Cancer Father ??? Heart disease Father ??? Stroke Father ??? Diabetes Father ??? Multiple sclerosis Father's Sister ??? Hearing loss Maternal Grandfather ??? Stroke Paternal Grandmother ??? Diabetes Paternal Grandmother ??? Hearing loss Paternal Grandfather ??? Diabetes Paternal Grandfather There were no vitals filed for this visit. PT: No results found for requested labs within last 30 days. INR: No results found for requested labs within last 30 days. APTT: No results found for requested labs within last 30 days. Hgb A1C: No results found for requested labs within last 30 days. CBC RBC: No results found for requested labs within last 30 days. RDW: No results found for requested labs within last 30 days. MCHC: No results found for requested labs within last 30 days. MCH: No results found for requested labs within last 30 days. MCV: No results found for requested labs within last 30 days. Hct: No results found for requested labs within last 30 days. Hgb: No results found for requested labs within last 30 days. WBC: No results found for requested labs within last 30 days. MPV: No results found for requested labs within last 30 days. Platelets: No results found for requested labs within last 30 days. RDW CV: No results found for requested labs within last 30 days. RDW Sd: No results found for requested labs within last 30 days. BMP Glucose: No results found for requested labs within last 30 days. Calcium: No results found for requested labs within last 30 days. Sodium: No results found for requested labs within last 30 days. Potassium: No results found for requested labs within last 30 days. CO2: No results found for requested labs within last 30 days. Chloride: No results found for requested labs within last 30 days. BUN: No results found for requested labs within last 30 days. Creatinine: No results found for requested labs within last 30 days. DOS Physical Exam Medical history, medications, and allergies reviewed. Attestation: This PAT evaluation 01/17/2023. Airway Exam: Mallampati: II Cervical ROM: FROM Patient presents with thick neck. Cardiovascular Exam: Rate: regular Rhythm: regular Pulmonary Exam: LCTA, bilat EENT Exam: trachea midline Dental Exam: Appears intact Current state: Patient's current state is cooperative. Anesthesia Plan ASA 3 My patient is approved for the Anesthesia Controlled Medication protocol when under care of a ENGRAVER OPTICAL FRAMES Planned anesthesia: General Team communication plan: oral ET tube Induction: Induction: intravenous. Postoperative Plan: No postoperative mechanical ventilation intended. Informed Consent: Discussed plan with ENGRAVER OPTICAL FRAMES. Anesthesia plan and risks discussed with patient. Consent and Attending signature: I and/or my designee have discussed the anesthesia plan, benefits, possible alternatives, parental presence at time of induction (if indicated), and clinically relevant risks that may include dental injury, unintentional awareness, and/or other complications. The patient and/or parent/legal guardian understand, and agree to proceed. All questions answered. documented in this encounter Plan of Treatment Not on file documented as of this encounter Procedures Procedure Name Priority Date/Time Associated Diagnosis Comments HI AN ELECTIVE ENDOTRACHEAL AIRWAY Routine 01/17/2023 11:09 AM CDT documented in this encounter Results * HI AN ELECTIVE ENDOTRACHEAL AIRWAY (01/17/2023 11:09 AM CDT) Narrative Kip Milian Jr., CRNA - 01/17/2023 11:09 AM CDT Kip Milian Jr., CRNA ? 01/17/2023 11:11 AM Airway Patient location: OR Urgency: elective Indications for airway management: anesthesia Difficult airway: no Staff: Placed by: ENGRAVER OPTICAL FRAMES: Kip Milian Jr., CRNA Emergent airway documentation: Risks and benefits discussed: yes Consent obtained: yes Consent given by: patient Airway prep: Preoxygenated: yes Patient position: sniffing Mask difficulty assessment: 0 - not attempted (rsi) Spontaneous ventilation during airway: absent Sedation level during airway: GA Final airway details: Final airway type: endotracheal airway Tube type: ETT ETT size: 7.5 mm Technique used for successful ETT placement: direct laryngoscopy Devices/Methods used in placement: stylet Insertion site: oral Blade type: Anthony Video blade type: CiraNova Blade size: 3 Cormack-Lehane (direct): grade I - full view of glottis Cormack-Lehane (video): grade I - full view of glottis ETT to teeth: 21 cm Placement verified by: auscultation and CO2 detection Airway secured with: silk tape Number of attempts: 1 Additional comments: Atraumatic intubation performed by Kip Milian CRNA. ?? Gabbie Vizcaino MD ANESTHESIA ORDERABLES Fi nal Result documented in this encounter Visit Diagnoses Not on filedocumented in this encounter Administered Medications Inactive Administered Medications - up to 3 most recent administrations Medication Order MAR Action Action Date Dose Rate Site ceFAZolin (ANCEF) 1 gram/10 mL in sterile water (premix) 3,000 mg 3,000 mg, intravenous, at 600 mL/hr, Administer over 3 Minutes, Once, On Sun01/17/23 at 0915, For 1 dose, Pre-Op, Indications: Prophylaxis, SurgicalIndications:Prophylaxis , Surgical Given 01/17/2023 11:05 AM CDT 3,000 mg dexmedeTOMIDine in 0.9% sodium chloride (PRECEDEX) 200 mcg/50 mL (4 mcg/mL) infusion (premix) intravenous, As needed, Starting on Sun01/17/23 at 1053, Anesthesia Intra-op Given 01/17/2023 11:55 AM CDT 8 mcg Given 01/17/2023 11:44 AM CDT 8 mcg Given 01/17/2023 11:30 AM CDT 8 mcg fentaNYL (SUBLIMAZE) preservative free injection intravenous, As needed, Starting on Sun01/17/23 at 1110, Anesthesia Intra-op Given 01/17/2023 11:53 AM CDT 50 mcg Given 01/17/2023 11:41 AM CDT 50 mcg Given 01/17/2023 11:10 AM CDT 100 mcg HYDROmorphone (DILAUDID) injection intravenous, Administer over 2 Minutes, As needed, Starting on Sun01/17/23 at 1220, Anesthesia Intra-op Given 01/17/2023 12:20 PM CDT 0.5 mg ketamine (KETALAR) 50 mg/5 mL (10 mg/mL) in sodium chloride 0.9% (premix) intravenous, As needed, Starting on Sun01/17/23 at 1057, Anesthesia Intra-op Given 01/17/2023 10:57 AM CDT 50 mg ketorolac (TORADOL) 30 mg/mL (1 mL) injection intravenous, As needed, Starting on Sun01/17/23 at 1215, Anesthesia Intra-op Given 01/17/2023 12:15 PM CDT 30 mg Lactated Ringer's (LR) infusion 30 mL/hr, intravenous, Continuous, Starting on Sun01/17/23 at 0845, Pre-Op, New Bag 01/17/2023 11:29 AM CDT Restarted 01/17/2023 10:53 AM CDT New Bag 01/17/2023 8:29 AM CDT 30 mL/hr 30 mL/hr lidocaine (XYLOCAINE) 20 mg/mL (2 %) preservative free injection intravenous, As needed, Starting on Sun01/17/23 at 1058, Anesthesia Intra-op Given 01/17/2023 10:58 AM CDT 100 mg midazolam (VERSED) 1 mg/mL preservative free injection intravenous, Administer over 2 Minutes, As needed, Starting on Sun01/17/23 at 1051, Anesthesia Intra-op Given 01/17/2023 10:51 AM CDT 2 mg ondansetron (ZOFRAN) injection intravenous, Administer over 2 Minutes, As needed, Starting on Sun01/17/23 at 1213, Anesthesia Intra-op Given 01/17/2023 12:13 PM CDT 4 mg propofoL (DIPRIVAN) 10 mg/mL IV intravenous, As needed, Starting on Sun01/17/23 at 1059, Anesthesia Intra-op Given 01/17/2023 12:21 PM CDT 50 mg Given 01/17/2023 10:59 AM CDT 200 mg rocuronium (ZEMURON) injection intravenous, As needed, Starting on Sun01/17/23 at 1107, Anesthesia Intra-op Given 01/17/2023 11:43 AM CDT 25 mg Given 01/17/2023 11:07 AM CDT 50 mg succinylcholine (ANECTINE) injection intravenous, As needed, Starting on Sun01/17/23 at 1100, Anesthesia Intra-op Given 01/17/2023 11:00 AM CDT 200 mg sugammadex (BRIDION) 100 mg/mL intravenous solution intravenous, As needed, Starting on Sun01/17/23 at 1216, Anesthesia Intra-op Given 01/17/2023 12:16 PM CDT 200 mg documented in this encounter Care Teams Cargo Vessel Stewardess Relationship Specialty Start Date End Date Rox Bustillo NP [address] [address] PCP - General Family Medicine 04/21/21 No, Physician 01/10/17 documented as of this encounter
--- OUTSIDE RECORDS SUMMARY | 2024-06-13 23:57 | XMS_ITS | Encounter Summary ---
Author Organization [facility] Healthcare Address [address] [place] [address] Care Team Providers Care Low Vision Therapist Name Role Phone No, Physician Unavailable Rox Bustillo NP Primary Care Provider Reason for Visit * Auth/Cert (Routine) Specialty Diagnoses / Procedures Referred By Contac t Referred To Contact Diagnoses Morbid obesity (HCC) Morbid obesity (HCC) [E66.01] Procedures KS LAPS GSTRC RSTRICTIV PX LONGITUDINAL GASTRECTOMY LAPAROSCOPIC GASTRECTOMY - SLEEVE Referral ID Status Reason Start Date Expiration Date Visits Re quested Visits Authorized [id number] 1 1 Encounter Details Date Type Department Care Team (Late st Contact Info) Description 01/17/2023 9:55 AM CDT - 01/17/2023 12:05 PM CDT Surgery [facility] Operating Room 1 [place] [address] Nayan Rosario MD [address] [place] [id number] LAPAROSCOPIC GASTRECTOMY - SLEEVE Surgery Details Date/Time Status Location OR Service Patient Class Case Class Case Type Trauma Case? 01/17/2023 9:55 AM [facility] General Surgery Surgery Admit Elective Panel 1 Procedure LRB Anes Op Region Wound Class Comments LAPAROSCOPIC GASTRECTOMY - SLEEVE N/A General Abdomen Class II - Clean Contaminated Surgeon Surgeon Role Service Panel Nayan Rosario MD Primary General Surgery 1 Case Notes Sid Tang Conf 8/10 MG documented in this encounter Social History Tobacco [...] week 01/18/2023 How often do you attend adventism or sikhism serv ices? 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 Gender Identity Not on file Sexual Orientation Not on file documented as of this encounter Last Filed Vital Signs Vital Sign Reading Time Taken Comments Blood Pressure 164/93 01/17/2023 8:07 AM CDT Pulse 88 01/17/2023 8:07 AM CDT Temperature 36.2 ??C (97.1 ??F) 01/17/2023 8:07 AM CD T Respiratory Rate 18 01/17/2023 8:07 AM CDT Oxygen Saturation 98% 01/17/2023 8:07 AM CDT Inhaled Oxygen Concentration - - Weight 151.1 kg (333 lb 1.8 oz) 01/17/2023 8:07 AM CDT Height 165.1 cm (5' 5 ) 01/17/2023 8:07 AM CDT Body Mass Index 55.41 01/17/2023 4:00 PM CDT documented in this encounter Discharge Summaries * Nayan Rosario MD - 01/19/2023 12:10 PM CDT Inpatient Discharge Summary BRIEF OVERVIEW Admitting Provider: Nayan Rosario MD Discharge Provider: Nayan Rosario MD Primary Care Physician at Discharge: Rox Bustillo NP [phone] Admission Date: 01/17/2023 Discharge Date: 01/19/2023 Admission Location: [facility] Problems/Diagnoses: Principal Problem: Morbid obesity (HCC) Resolved [...] Center 02/26/2023 9:[address] [facility] Main documented in this encounter Discharge Instructions * Discharge Instructions* Juan Antonio Lee RN - 01/19/2023 12:10 PM CDT THANK YOU for choosing our team to provide your health care. Your HEALTH AND SAFETY are important to us. We hope you feel your care on SCU is ALWAYS EXCELLENT! Please call [facility] at [phone] if you have any questions regarding your care. Wishing you continued improvement during your recovery. Your Surgical Care Unit Team Latonia Hardwick Dana, Denise, Nancy, Peggy, Samantha, Megan, Stacy, Debbie, Sheila, Lamika, Judy, Lindsey, Suzie, Jocelyn, Rochelle, Simona, Bonnie, Elizabeth, Denisa, Rekha, Damon, Gabrielle. * Attachments The following attachments cannot be sent through Care Everywhere. * Laxative, Stool Softeners (By mouth) (Egyptian) * Famotidine (By mouth) (Egyptian) * Ondansetron (By mouth, Into the mouth) (Egyptian) * Oxycodone, Rapid Release (By mouth) (Egyptian) documented in this encounter Medications at Time [...] times a day 60 tablet 11 01/19/2023 4 ondansetron (ZOFRAN) 4 mg tablet Take 1 [...] Rosario MD 12:37 PM 01/18/2023 * Rakan Quiroz, PRODUCTION SUPERVISOR OFF SHIFT - 01/18/2023 9:49 AM CDT Physical Therapy [...] End Date End Date [place] [facility] [place] [facility] [place]17[place]23 01/24/23 -- Goal Details: Ambulate [...] of right lower extremity Heartburn Morbid obesity (HCC) Past Medical History: Diagnosis Date Anemia Hypertension [...] with IV attached PAIN: Pre-therapy pain level: 10 Pain location: abdomen Pain intervention: pain meds [...] Date Expected End Date End Date [place] [facility] [place] [facility] 01/17/23 01/24/23 -- Goal Details: Tolerate assessment of bed mobility Goal Start Date Expected End Date End Date PT [facility] [place] [facility] 01/17/23 01/24/23 -- Goal Details: Ambulate 200' with independence Goal Start Date Expected End Date End Date PT [facility] [place] [facility] 01/17/23 01/24/23 -- Goal Details: Tolerate [...] orders for this visit: BMI 45.0-49.9, adult ([facility]) ([facility]) (Primary) Assessment & Plan: Given [...] diet, no falls/injuries this shift. Medicated per Aug for complaints of nausea/vomiting. Pt has call light in reach and is resting in bed. Will monitor. * Initial Assessments - Leslye Aguilar RN - 01/18/2023 1:23 PM CDT CM Low Risk Discharge Planning Assessment Note Primary Care Provider: Rox Bustillo NP Preferred Pharmacy: [id number] [address] Who does the patient or legal guardian [...] at bedside and gets her supplies thru [employer]. Barrier to dc is recovery after lap [...] OF : 2000 SURGEON: Nayan Rosario MD PEOPLESOFT ADMINISTRATOR:Lumber Tailer: Simi Araujo RN Lumber Tailer Relief: Sara Adkins RN Scrub: Kelly Willson RN; Dea Conway LPN DISTRICT SALES REPRESENTATIVE: Dea Peoples RN DATE OF SURGERY: 01/17/2023 [...] diaphragm. Posterior attachments were also taken down. Atthis time we continued our dissection along the greater curvature towards the pylorus. This was stopped at a distance roughly 4 cm from the pylorus. A 40 [place] Citizen visi G-tube was then inserted under direct visualization and directed towards the pylorus. At this time using a black loaded with Daniela Guard, our 1st firing was done. This was in a more horizontal direction. We then continued with purple loads with Daniela Guard following the edge of [...] the 15 mm trocar site. This site was then closed with a suture Passer device with [...] that you and your doctor have chosen [facility] for your surgery. We hope that [...] prior to surgery Use no make-up, nail divehi, lotions, oils or powders on your skin. [...] CDT Morbid obesity (HCC) Case Notes Sid Tang Conf 8/10 MG EGFR STAT 01/17/2023 8:23 AM [...] AM CDT 01/18/2023 4:47 AM CDT Nayan Roasrio MD LAB BLOOD ORDERA BLES Final Result [facility] ([place]) [address] [facility] Department of Laboratories [place], [place] [id number] * (ABNORMAL) CBC without differential (01/18/2023 4:16 [...] RDW CV 16.0(H) 11.1 - 14.9 % [facility] ([place]) RDW SD 44.9 35.7 - 48.1 fL [facility] ([place]) NRBC abs 0.00 0.00 - 0.01 K/cumm [facility] ([place]) Blood 01/18/2023 4:16 AM CDT 01/18/2023 4:47 AM CDT Nayan Rosario MD LAB BLOOD ORDERA BLES Final Result [facility] ([place]) 1 [facility] [place] [address] * Phosphorus (01/18/2023 4:16 AM CDT) Phosphorus, pl 2.8 2.3 - 4.5 mg/dL [facility] ([place]) Blood 01/18/2023 4:16 AM CDT 01/18/2023 4:47 AM CDT Nayan Rosario MD LAB BLOOD ORDERA BLES Final Result Performing Organization Address City/[facility]/ZIP Co de Phone Number [facility] ([place]) 1 [facility] [place] [address] * Magnesium (01/18/2023 4:16 AM CDT) Magnesium 1.7 1.4 - 2.5 mg/dL [facility] ([place]) Blood 01/18/2023 4:16 AM CDT 01/18/2023 4:47 AM CDT Nayan Rosario MD LAB BLOOD ORDERA BLES Final Result [facility] ([place]) 1 [facility] [place] [address] * Basic metabolic panel (01/18/2023 4:16 AM CDT) Sodium 137 135 - 145 mmol/L [facility] ([place]) Potassium, pl 4.2 3.3 - 4.9 mmol/L [facility] ([place]) Chloride 101 97 - 110 mmol/L [facility] ([place]) CO2 23 22 - 32 mmol/L [facility] ([place]) Anion gap 13 2 - 15 mmol/L [facility] ([place]) BUN 9 6 - 25 mg/dL [facility] ([place]) Creatinine 0.62 0.60 - 1.10 mg/dL [facility] ([place]) Glucose 116 70 - 199 mg/dL [facility] ([place]) Comment: Interpretive Data Fasting glucose >/= [...] 2022. Calcium 9.2 8.5 - 10.3 mg/dL [facility] ([place]) Blood 01/18/2023 4:16 AM CDT 01/18/2023 4:47 AM CDT us Nayan Rosario MD LAB BLOOD ORDERA BLES Final Result [facility] ([place]) [address] [facility] Department [place] [address] * Surgical pathology (01/17/2023 1:31 PM CDT) Tissue (Stomach - Subtotal / Total Resection, non-Tumor) 01/17/2023 11:30 AM CDT Narrative [facility] - 01/19/2023 11:35 AM CDT EPIC results best viewed via link to PDF [facility] Department of Pathology [address] [place] [id number] Note to Patients: This report may contain [...] Patient Name: ??BAILEE DE LOS SANTOS Address: ??[address] [place] [address], ??[place], [place] [address] Gender: ??F : ??2000 (Age: 22) Service: ??Surgery Location: ??[facility] Hospital #: ??[id number] Patient Type: ??[facility] Accession # ?[id number] Taken: ??01/17/2023 Received: ??01/17/2023 Accessioned: ??01/17/2023 Reported: [...] labeled with BAILEE DE LOS SANTOS and mckenna . ??It is a portion of stomach [...] determined by the Surgical Pathology Department at [facility] as part of an ongoing quality process engineer program and in compliance with federally mandated [...] characteristics determined by the Surgical Pathology Department [facility]. ??It has not been cleared or approved by the U. S. Food and Drug Administration. Note for decalcified specimens: This assay has not been validated on decalcified tissues. Results should be interpreted with caution given the possibility of false negativity on decalcified specimens Nayan Rosario MD LAB PATHOLOGY OR DERABLES Final Result [facility] 1 [place], [place] [id number] * eGFR (01/17/2023 8:23 AM CDT) eGFR 127 mL/min/1. 73 m2 [facility] Comment: Interpretive Data Reference Interval Normal ?>/= [...] ORDERA BLES Final Result Performing Organization Address City/State/[facility] Co de Phone Number [facility] ([place]) [address] [facility] Department of Laboratories [place] [phone] * Antibody screen (01/17/2023 8:23 AM CDT) Steve, indirect, Gel Interpretation Negative ABSC [facility] ([place]) Blood 01/17/2023 8:23 AM CDT 01/17/2023 8:30 AM CDT Narrative [facility] ([place]) - 01/17/2023 9:03 AM CDT Has the patient had Daratumumab or Isatuximab in the past 6 months?->Unknown Nayan Rosario MD LAB BLOOD BANK T EST ORDERABLES Final Result Performing Organization Address City/[facility]/ZIP Co de Phone Number [facility] ([place] 1 [facility] [place] [address] * ABO/Rh (01/17/2023 8:23 AM CDT) ABO/Rh A Positive [facility] ([place]) Blood 01/17/2023 8:23 AM CDT 01/17/2023 8:30 AM CDT Narrative [facility] ([place]) - 01/17/2023 9:03 AM CDT Has the patient had Daratumumab or Isatuximab in the past 6 months?->Unknown Nayan Rosario MD LAB BLOOD BANK T EST ORDERABLES Final Result Performing Organization Address [facility] Co de Phone Number [facility] [address] [facility] Department [place] [address] * (ABNORMAL) CBC without differential (01/17/2023 8:23 [...] MD LAB BLOOD ORDERA BLES Final Result [facility] [address] [facility] Department [place] [address] * (ABNORMAL) Comprehensive metabolic panel (01/17/2023 8:23 [...] BLES Final Result [facility] ([place] [address] [facility] Department [place] [address] * POCT hCG, urine (01/17/2023 8:05 AM CDT) HCG, ur, POC Negative Lot Number [id number] QC Backgroud Clear Acceptable QC Control Line Acceptable Urine 01/17/2023 8:05 AM CDT us Christian Frye MD POINT OF CARE TEST ORD ERABLES Final Result documented in this encounter Visit Diagnoses Diagnosis Morbid obesity (HCC)- Primary Morbid obesity Morbid obesity (HCC) Morbid obesity documented in this encounter Admitting Diagnoses Diagnosis Morbid obesity (HCC) Morbid obesity documented in this encounter Administered Medications Inactive Administered Medications - up to 3 most recent administrations Medication Order MAR Action Action Date Dose Rate Site BUPivacaine-EPINEPHrine (MARCAINE with EPI) 0.5 %-1:200,000 preservative free injection As needed, Starting on Sun01/17/23 at 1125, Intra-Op Given 01/17/2023 11:25 AM CDT 9 mL Surgical Site docusate sodium (COLACE) capsule 100 mg 100 mg, oral, 2 times daily, First dose on Sun01/17/23 at 2100, Indications: constipationIndications:con stipation Given 01/19/2023 8:11 AM CDT 100 mg Given 01/18/2023 8:37 PM CDT 100 mg Given 01/18/2023 7:52 AM CDT 100 mg enoxaparin (LOVENOX) syringe 40 mg 40 mg, subcutaneous, Every 12 hours scheduled, First dose on Sun01/17/23 at 2100, Indications: Deep Vein Thrombosis PreventionIndications:Deep Vein Thrombosis Prevention Given 01/19/2023 8:11 AM CDT 40 mg Left Lower Abdomen Given 01/18/2023 8:37 PM CDT 40 mg Le ft Upper Abdomen Given 01/18/2023 7:53 AM CDT 40 mg Ri ght Lower Abdomen HYDROmorphone (DILAUDID) injection 0.5 mg 0.5 mg, [...] CDT 1 mg Lactated Ringer's (LR) infusion 100 mL/hr, intravenous, [...] Given 01/17/2023 9:10 PM CDT 10 mL sodium chloride 0.9% irrigation As needed, Starting on Sun01/17/23 at 1126, Intra-Op Given 01/17/2023 11:26 AM CDT 1,000 mL Surgical Site Given 01/17/2023 11:20 AM CDT 250 mL S urgical Site sterile water irrigation As needed, Starting on Sun01/17/23 at 1126, Intra-Op Given 01/17/2023 11:26 AM CDT 1,000 mL Other (Comment) triamterene-hydroCHLOROth iazide (MAXZIDE,DYAZIDE) 37.5-25 mg per tablet/capsule 1 tablet/capsule 1 tablet/capsule (1 tablet), oral, Daily, First dose on Sun01/18/23 at 0900 Given 01/19/2023 8:11 AM CDT 1 tablet/capsule Given 01/18/2023 7:52 AM CDT 1 tablet/capsule documented in this encounter Active and Recently Administered Medications Times are shown in CDT. Scheduled Medication Order 01/17/2023 01/18/2023 01/19/2023 acetaminophen (TYLENOL) tablet 1,000 mg (COMPLETED) 1,000 mg, oral, Once, On Sun01/17/23 at 0845, For 1 dose, Pre-Op, Indications: Pre-Emptive Analgesia 827 (Given - Provider: Sammy Peres, EBEN) ceFAZolin [...] dose on Sun01/17/23 at 2100, Indications: constipation 2109 (Not Given - Provider: Krysten Mcnair RN - Reason: Patient/family refused) 751 (Given - Provider: Sonia Navarrete RN)2036 (Given - Provider: Maria Elena Phillips RN) 0811 (Given - Provider: Sonia Navarrete RN) enoxaparin (LOVENOX) syringe 40 mg (COMPLETED) 40 mg, subcutaneous, Once, On Sun01/17/23 at 0845, For 1 dose, Pre-Op, Indications: VTE Prophylaxis 827 (Given - Provider: Sammy Peres, EBEN) enoxaparin (LOVENOX) syringe 40 mg 40 mg, [...] 1400 1540 (Given - Provider: Whitney Strange RN)2102 (Given - Provider: Krysten Mcnair RN) 0555 (Given - Provider: Krysten Mcnair RN)1450 (Given - Provider: Sonia Navarrete RN)2037 (Given - Provider: Maria Elena Phillips RN - Comment: pt nausous) 0541 (Given - Provider: Maria Elena Phillips RN)1407 (Not Given - Provider: Sonia Navarrete RN [...] Reason: IV Infusing)2110 (Given - Provider: Krysten Mcnair RN) 0558 (Not Given - Provider: Krysten Mcnair [...] Pre-Op, 0829 (New Bag - Provider: Sammy Peres, EBEN)1052 (Paused - Provider: Kip Milian Jr., CRNA - Comment: Switch to gravity)1053 (Restarted - Provider: Kip Milian Jr., CRNA)1129 (New Bag - Provider: Kip Milian Jr., CRNA)1218 (Anesthesia Volume Adjustment - Provider: Kip Milian Jr., CRNA)1407 (Stopped - Provider: Whitney Strange RN) Lactated Ringer's (LR) infusion 100 mL/hr, intravenous, Continuous, Starting on Sun01/17/23 at 1415, 1540 (New Bag - Provider: Whitney Strange, EBEN) 0045 (New Bag - Provider: Krysten Mcnair RN)2037 (New Bag - Provider: Maria Elena Phillips, EBEN) 0627 (New Bag - Provider: Maria Elena Phillips, EBEN)1800 (Due: Stopped) PRN Medication Order 01/17/2023 01/18/2023 [...] at 1331 1737 (Given - Provider: Whitney Strange, EBEN) 0222 (Given - Provider: Krysten Mcnair, EBEN)0753 (Given - Provider: Sonia Navarrete, EBEN)1134 (Given - Provider: Juan Antonio Lee, EBEN) HYDROmorphone (DILAUDID) injection 1 mg 1 mg, intravenous, Administer over 2 Minutes, Every 2 hours PRN, pain 7-10, Starting on Sun01/17/23 at 1331 1534 (Given - Provider: Sonia Navarrete, EBEN) hyoscyamine (OSCIMIN) disintegrating tablet 125 mcg 125 [...] pain, Starting on Sun01/18/23 at 0811, Indications: Pain 2036 (Given - Provider: Maria Elena Phillips, RN) 0215 (Given - Provider: Maria Elena Phillips RN)0828 (Given - Provider: Sonia Navarrete, EBEN) prochlorperazine (COMPAZINE) injection 5 mg (CANCELED) 5 [...] Mcnair RN) 0808 (Given - Provider: Sonia Navarrete RN)1534 (Given - Provider: Sonia Navarrete RN) 0215 [...] Nayan Rosario MD - Comment: 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)1126 (Given - Provider: Nayan Rosario MD - Comment: On sterile field for irrigation) sterile water irrigation (CANCELED) As needed, Starting on Sun01/17/23 at 1126, Intra-Op 1126 (Given - Provider: Nayan Rosario MD - Comment: On sterile field for lubrication of instruments) documented in this encounter Orders Medications Ordered That Ed ht Not Have Been Administered Count Last Ordered Date First Ordered Date oxyCODONE (ROXICODONE) tablet 5 mg 1 2022 acetaminophen (TYLENOL) tablet 1,000 mg 1 0 01/17/2023 Carrier Fluids for Secondary Infusion - 0.9% Sodium Chloride 2 01/17/2023 ceFAZolin (ANCEF) 1 gram/10 mL in sterile water (premix) 3,000 mg 1 01/17/2023 docusate sodium (COLACE) capsule 100 mg 1 0 01/17/2023 enoxaparin (LOVENOX) syringe 40 mg 2 2022 fentaNYL (SUBLIMAZE) preserv ative free injection 25 mcg 1 01/17/2023 fentaNYL (SUBLIMAZE) preserv ative free injection 50 mcg 1 01/17/2023 HYDROmorphone (DILAUDID) injection 0.5 mg 1 01/17/2023 HYDROmorphone (DILAUDID) injection 1 mg 1 0 01/17/2023 hyoscyamine (OSCIMIN) disint egrating tablet 125 mcg 1 01/17/2023 Lactated Ringer's (LR) infusion 2 metoclopramide (REGLAN) 5 mg /mL injection 5 mg 1 01/17/2023 metoprolol XL (TOPROL-XL) ex tended release tablet 25 mg 1 01/17/2023 naloxone (NARCAN) 0.4 mg/mL injection 0.04-0.4 mg 1 01/17/2023 ondansetron (ZOFRAN) injection 4 mg 2 01/17 prochlorperazine (COMPAZINE) injection 5 mg 2 01/17/2023 sodium chloride 0.9% flush 0.5-20 mL 3 01/02 triamterene-hydroCHLOROthiaz shaista (MAXZIDE,DYAZIDE) 37.5-25 mg per tablet/capsule 1 tablet/capsule 1 01/17/2023 Nursing Count Last Ordered Date First Orde red Date DISCHARGE INSTRUCTIONS 1 01/19/2023 TELEMETRY MONITORING 1 01/17/2023 WEIGH PATIENT 1 01/17/2023 Admission Count Last Ordered Date First Orde red Date ADMIT TO INPATIENT 1 01/17/2023 Discharge Count Last Ordered Date First Orde red Date DISCHARGE PATIENT 1 01/19/2023 documented in this encounter Care Teams Low Vision Therapist Relationship Specialty Start Date End Date Rox Bustillo NP [address] [address] PCP - General Family Medicine 04/21/21 No, Physician 01/10/17 documented as of this encounter
--- OUTSIDE RECORDS SUMMARY | 2024-06-13 23:57 | XMS_ITS | Encounter Summary ---
Author Organization [facility] Healthcare Address [address] [place] [address] Care Team Providers Care Resource Teacher Name Role Phone No, Physician Unavailable Rox Bustillo NP Primary Care Provider [phone] Encounter Details Date Type Department Care Team (Latest Contact Info) Description 06/20/2023 8:49 AM CRITICAL CARE CLINICAL NURSE SPECIALIST - 06/20/2023 11:59 PM [facility] [[email or web address] Hospital Encounter [employer] Nutrition and Diabetic Education 1 [facility] [address] [place] [address] Fields, Yareli Lechuga, RD [address] [place] [address] Discharge Disposition: Discharge to home or self [...] week 01/18/2023 How often do you attend hindu or evangelical serv ices? Never 01/18/2023 Do you belong to any clubs o r organizations such as hindu groups, unions, fraternal or athletic groups, or [...] staff should administer the PHQ-9) 0 01/18/2023 [facility] - [...] on file Legal Sex Female 8:56 PM CRITICAL CARE CLINICAL NURSE SPECIALIST Gender Identity Not on file Sexual Orientation Not on file documented as of this encounter Last Filed Vital Signs Vital Sign Reading Time Taken Comments Blood Pressure - - Pulse - - Temperature - - Respiratory Rate - - Oxygen Saturation - - Inhaled Oxygen Concentration - - Weight - - Height 165.1 cm (5' 5 ) 06/20/2023 2:31 PM CRITICAL CARE CLINICAL NURSE SPECIALIST Body Mass Index - - documented in [...] Progress Notes * Yareli Fields, RD - 06/20/2023 9:00 AM CST Outpatient Nutrition Counseling Assessment Patient Name: Maeve Ross : 2000 Sex: female Encounter Date: 06/20/2023 Time Calculation (min): 60 min Visit #: [address] Rosario to nutrition counseling for Morbid Obesity/ S/P Bariatric Gastric Sleeve. She has a past medical history of Anemia, Hypertension, Obesity, Ovarian cyst, and Sleep apnea. Assessment: Pt is alone for today's nutritional counseling appointment. Pt is at 286.3 lbs. Wt is down 5.7 lbs/2 months. Pt reports, I am never full . I eat and then I throw up . I can eat as much as my 8 year old . Pt reports not getting in her protein, not drinking enough water. Not meeting her goals for weight loss to occur. She doesn't go to the gym nor does she walk consistently. Pt needs to revisit all of the previous education that was given to her before her surgery by this RDN. She needs to keep a food diary and bring to her next appointment. She needs to consume ~130 grams of protein daily. Reset pouch tomorrow ( 3 days clear, 3 days full and back to Pureed- Regular). Drink 6 glasses water/day. Need to drink more premier protein shakes to meet protein intake. Pt is getting full on carbs and FAST FOOD. She doesn't slow down when eating and chew thoroughly. She has mentioned needing asleeve revision to decrease her appetite and lose more weight. Pt is self sabotaging herself. She knows that she is over eating and continue to do it. She was suppose to reset her pouch and refused to do that previously. Most recommendations given to her by Hortencia Mccray or myself has fallen short andoften not done. Pt is not attending bariatric support group meetings. Bariatric support group meeting for Jw . RDN encouraged this patient to start attending the support groups. Much encouragement is needed and a referral to Dr Pollard. Diet Recall: Breakfast: protein shake, grapes, cheesestick. Lunch: ham sandwich, chips. Dinner: chicken, green beans, rice, Snacks: none Beverages: none shown other than protein shake Personal Goals: lose more weight. Keep a food diary. Walk 30 minutes/day- 5 days/week. Drink 2-3 premier protein shakes/day (increase protein intake to ~130 grams/day). Drink 4-6 bottles of water/day. Take 3-4 bites/ stop eating for 20 minutes before returning to meal. Support System: Barriers to change: lacks motivation. Exercise: none Anthropometrics: Ht 165.1 cm (5' 5 ) BMI 48.09 kg/m?? IBW/kg (Calculated) : 56.7 kg. Today's weight= 286.3 lbs. Wt Readings from Last 3 Encounters: 05/01/23 131.1 kg (289 lb) 02/27/23 (!) 138.8 kg (306 lb 1.6 oz) 01/25/23 (!) 145 kg (319 lb 9.6 oz) No results found for: CALCBMI Relevant [...] Food choices, Lack of education, Lack of interest, Lack of adherence, Lack of activity,Weight loss, Recent surgery Evidenced by: BMI 40 or more, Patient interview, Physical finding Nutritional Needs: Total Kcal/kg Estimated Needs : 1298.65 Kcal/k Total Protein Estimated Needs (gm): 155.84 Protein Needs Based on g/k.2 Total Daily Carbohydrates Recommended (gm): 120 Total Fat Estimated Needs (gm): 28.86 Fat Needs Based on % of Calories: 20 Total Fluid Estimated Needs: 1298.65 Fluid Needs Based on : 1 ml/kcal [...] ordering kids or lunch meals, and asking dining room server for to-go box at beginning of meal. Primary teaching and session discussion focused on basics of health and nutrition, what foods contain carbohydrates, how to read nutrition facts labels, carbohydrate counting, and meal planning. Pt provided with sample meal plan, recipes, grocery shopping list, carbohydrate counting booklet and relevant handouts. Recommended Summer D Cody consume 25 grams carbohydrate choices plus lean protein per meal and 5-10grams carb choice plus lean protein per snack. Discussed choosing lean protein and opting for unsaturated fats over saturated fats. Encouraged Summer D Cody to incorporate physical activity as permitted by MD with overall goal of 150 minutes per week. Patient Center Goals: lose more weight Monitoring/Evaluation: Weekly weigh ins Keep a food diary and bring to next follow up. Evaluation of Learning: Pt Maeve Ross needs further instruction and needs review/assistance Pt is in Action stage of change. Expect adherence to recommendations to be poor. Pt to follow up on Jul 02 for support/reinforcement. Communication sent to referring provider with education provided and desired outcomes Yareli Fields RDN, LDN. ICAL CARE CLINICAL NURSE SPECIALIST documented in this encounter Plan of Treatment Not on file documented as of this encounter Visit Diagnoses Not on filedocumented in this encounter Care Teams Resource Teacher Relationship Specialty Start Date End Date Rox Bustillo NP [address] [address] PCP - General Family Medicine 04/21/21 No, Physician 01/10/17 documented as of this encounter
--- OUTSIDE RECORDS SUMMARY | 2024-06-13 23:57 | XMS_ITS | Encounter Summary ---
Author Organization [facility] Healthcare Address [address] [place] [address] Care Team Providers Care Metal Cabinet Finisher Name Role Phone No, Physician Unavailable Rox Bustillo NP Primary Care Provider [phone] Reason for Visit * Auth/Cert (Routine) Specialty Diagnoses / Procedures Referred By Contac t Referred To Contact Diagnoses Heartburn Heartburn [R12] Procedures AL EGD TRANSORAL BIOPSY SINGLE/MULTIPLE ESOPHAGOGASTRODUODENOSCOPY Referral ID Status Reason Start Date Expiration Date Visits Re quested Visits Authorized [id number] 1 1 Encounter Details Date Type Department Care Team (Latest Contact Info) Description 11/14/2022 11:34 AM CDT - 11/14/2022 2:20 PM CDT Hospital Encounter [facility] [address] [place] [address] Nayan Rosario MD [address] [place] [address] Discharge Disposition: Discharge to home or self [...] on file 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 Gender Identity Not on file Sexual Orientation Not on file documented as of this encounter Last Filed Vital Signs Vital Sign Reading Time Taken Comments Blood Pressure 161/77 11/14/2022 2:11 PM CDT Pulse 75 11/14/2022 2:11 PM CDT Temperature 36.9 ??C (98.5 ??F) 11/14/2022 2:11 PM CD T Respiratory Rate 16 11/14/2022 2:11 PM CDT Oxygen Saturation 99% 11/14/2022 2:11 PM CDT Inhaled Oxygen Concentration - - [...] 11/14/2022 1:17 PM CDTAssociated Order(s): EGD Digestive [facility] Center Patient Name: [facility] Cody Procedure Date: 11/14/2022 1:17 PM Date of : 2000 Admit Type: Outpatient Age: 22 Gender: Female Attending MD: Nayan Rosario M.D. Room: [facility] ENDOSCOPY ROOM 2 Note Status: [...] passed under direct vision. The Endoscope GIF-H190 [id number] was introduced through the mouth, and advanced [...] 1:17 PM Procedure Code(s): --- Professional --- 92148, Esophagogastroduodenoscopy, flexible, transoral; with biopsy, single or multiple --- Technical --- 35390, Esophagogastroduodenoscopy, flexible, transoral; with biopsy, single or multiple Diagnosis Code(s): --- Professional --- R12, Heartburn --- Technical --- R12, Heartburn CPT copyright 2020 [employer] [place] [employer]. All rights reserved. The codes documented in this report are preliminary and upon plastic production machine setter review may be revised to meet current compliance requirements. Recognized by the [place] [employer] for promoting quality in endoscopy documented in this encounter Miscellaneous Notes * Perioperative Nursing Note - Hema Quinn RN - 11/14/2022 2:07 PM CDT [...] CDT) H. pylori, rapid (GARY) Negative Negative [facility] (KYLE) Tissue 11/14/2022 3:40 PM CDT 11/15/2022 6:17 AM CDT us Nayan Rosario MD LAB MICROBIOLOGY - GENERAL ORDERABLES Final Result MICHEAL ARCHULETA LOGAN) 1 [facility] Department [place] [address] * EGD (11/14/2022 1:17 PM CDT) Anatomical Region Laterality Modality Other Narrative Procedure Note Nayan Rosario MD - 11/14/2022 1:17 PM CDT Digestive [facility] Center Patient Name: Maeve Ross Procedure Date: 11/14/2022 1:17 PM Date of : 2000 Admit Type: Outpatient Age: 22 Gender: Female Attending MD: Nayan Rosario M.D. Room: [facility] ENDOSCOPY ROOM 2 Note Status: Finalized Patient Profile: This is a 22 year old female. Procedure: Upper GI endoscopy Indications: Heartburn Referring MD: Edith Carlson.N.PSandi Providers: Nayan Rosario M.D. Impression: - Z-line [...] passed under direct vision. The Endoscope [id number]-[id number] was introduced through the mouth, and advanced [...] 1:17 PM Procedure Code(s): --- Professional --- 83108, Esophagogastroduodenoscopy, flexible, transoral; with biopsy, single or multiple --- Technical --- 31251, Esophagogastroduodenoscopy, flexible, transoral; with biopsy, single or multiple Diagnosis Code(s): --- Professional --- R12, Heartburn --- Technical --- R12, Heartburn CPT copyright 2020 [employer] [place] [employer]. All rights reserved. The codes documented in this report are preliminary and upon plastic production machine setter reviewmay be revised to meet current compliance requirements. Recognized by the [employer] [place] [employer] G[employer] for promoting quality [...] this encounter Visit Diagnoses Diagnosis Heartburn- Primary documented in this encounter Admitting Diagnoses Diagnosis [...] 11/14/2022 documented in this encounter Care Teams Metal Cabinet Finisher Relationship Specialty Start Date End Date Rox Bustillo NP [address] [address] PCP - General Family Medicine 04/21/21 No, Physician 01/10/17 documented as of this encounter
--- OUTSIDE RECORDS SUMMARY | 2024-06-13 23:57 | XMS_ITS | Encounter Summary ---
Author Organization [facility] Medical Group Address [address] [place] [address] Care Team Providers Care Chief Psychologist Name Role Phone No, Physician Unavailable Rox Bustillo NP Primary Care Provider [phone] Reason for Visit * Reason Comments Obesity Bariatric 3 last yanelis ght 366 lb 3.2 oz Encounter Details Date Type Department Care Team ([facility] Contact Info) Description 09/14/2022 8:50 AM CDT Office Visit [facility] [address] [facility] [address] [place] [phone] Nayan Rosario MD [address] [place] [address] [address] [place] [address] BMI 45.0-49.9, adult (HCC) (Primary [...] on file Legal Sex Female 8:56 PM TRANSPORTATION MAINTENANCE SPECIALIST Gender Identity Not on file Sexual Orientation Not on file documented as of this encounter Last Filed Vital Signs Vital Sign Reading Time Taken Comments Blood Pressure 136/87 09/14/2022 8:39 AM CDT Pulse 104 09/14/2022 8:39 AM CDT Temperature 36 ??C (96.8 ??F) 09/14/2022 8:39 AM CDT Respiratory Rate - - Oxygen Saturation 94% 09/14/2022 8:39 AM CDT Inhaled Oxygen Concentration - - Weight 159.1 kg (350 lb 12.8 oz) 09/14/2022 8:39 AM CDT Height 165.1 cm (5' 5 ) 09/14/2022 8:39 AM CDT Body Mass Index 58.38 09/14/2022 8:39 AM CDT documented in this encounter Progress Notes * Nayan Rosario MD - 09/14/2022 8:50 AM CDT Progress Note Subjective: HPI: The patient has done excellent having lost 16 lb since last visit. She attributes this to really trying to cut out fast food as well as soda. Chief complaint: Morbid obesity Objective: Vitals BP 136/87 (BP Location: Right arm, Patient Position: Sitting) Pulse 104 Temp 36 ??C (96.8 ??F) Ht 165.1 cm (5' 5 ) Wt (!) 159.1 kg (350 lb 12.8 oz) SpO2 94% BMI 58.38 kg/m?? Physical Exam Abdomen: Soft, obese Assessment/Plan Diagnoses and all orders for this visit: BMI 45.0-49.9, adult (HCC) (Primary) Assessment & Plan: Now that she is done well working on the dietary aspect we have encouraged her to incorporate some kind of exercise regimen this coming month. She will continue to work with the dietitian and attend the monthly support group meetings. We will see her next month to reassess her progress. Nayan Rosario MD 8:58 AM 09/14/2022 documented in this encounter Miscellaneous Notes * Assessment & Plan Note - Nayan Rosario MD - 09/14/2022 8:58 AM CDTAssociated Problem(s): BMI 45.0-49.9, adult (HCC) Now that she is done well working on the dietary aspect we have encouraged her to incorporate some kind of exercise regimen this coming month. She will continue to work with the dietitian and attend the monthly support group meetings. We will see her next month to reassess her progress. documented in this encounter Plan of Treatment Not on file documented as of this encounter Visit Diagnoses Diagnosis BMI 45.0-49.9, adult (HCC)- Primary documented in this encounter Historical Medications * This list may reflect changes made after this encounter. amoxicillin-clavu lanate (AUGMENTIN) 875-125 mg per tablet Take 1 tablet by mouth every 12 (twelve) hours for 10 days 09/07/2022 11/14/2022 added in this encounter Care Teams Chief Psychologist Relationship Specialty Start Date End Date Rox Bustillo NP [address] [address] PCP - General Family Medicine 04/21/21 No, Physician 01/10/17 documented as of this encounter
--- OUTSIDE RECORDS SUMMARY | 2024-06-13 23:57 | XMS_ITS | Encounter Summary ---
Author Organization [facility] Healthcare Address [address] [place] [address] Care Team Providers Care Associate Publisher Name Role Phone No, Physician Unavailable Rox Bustillo NP Primary Care Provider [phone] Reason for Referral * Consultation (Routine) - Closed Specialty Diagnoses / Procedures Referred By Guillaume t Referred To Contact Diabetes and Nutrition Services Diagnoses Encounter for nutrition evaluation prior to bariatric surgery Morbid obesity (HCC) Nayan Rosario MD Phone: tel: fax: [address] [phone] Referral ID Status Reason Start Date Expiration Date V isits Requested Visits Authorized [id number] Closed Specialty Services Required 08/17/2022 09/16/2023 12 12 Question Answer [id number] Initial / Annual Follow-up MNT Please select the performing region: [facility] [[id number]] # of visits: 10 Comments Please schedule initial visit in September Reason for Visit * Consultation (Routine) - Closed Specialty Diagnoses / Procedures Referred By Contac t Referred To Contact Diabetes and Nutrition Services Diagnoses Encounter for nutrition evaluation prior to bariatric surgery Morbid obesity (HCC) Nayan Rosario MD Phone: tel: fax: [address] [phone] Referral ID Status Reason Start Date Expiration Date V isits Requested Visits Authorized [id number] Closed Specialty Services Required 08/17/2022 09/16/2023 12 12 Encounter Details Date Type Department Care Team (Latest Contact Info) Description 11/09/2022 7:11 AM CDT - 11/09/2022 11:59 PM CDT Hospital Encounter [facility] Nutrition and Diabetic Education 1 [facility] [address] [place] [address] Fields, Yareli Lechuga, RD [address] [facility] [place] [address] Encounter for nutrition evaluation prior to bariatric surgery; Morbid obesity (HCC) Discharge Disposition: Discharge to [...] on file 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 Gender Identity Not on file Sexual Orientation Not on file documented as of this encounter Last Filed Vital Signs Vital Sign Reading Time Taken Comments Blood Pressure - - Pulse - - Temperature - - Respiratory Rate - - Oxygen Saturation - - Inhaled Oxygen Concentration - - Weight - - Height 165.1 cm (5' 5 ) 11/09/2022 8:45 AM CDT Body Mass Index - - [...] this encounter Progress Notes * Yareli Fields, KAILEY - 11/09/2022 7:30 AM CDT Outpatient Nutrition Counseling Assessment Patient Name: Maeve Ross : 2000 Sex: female Encounter Date: 11/09/2022 Time Calculation (min): 20 min Visit #: [address] Rosario to nutrition counseling for Morbid Obesity/ Bariatric Surgery Program . She has a past medical history of Anemia, Hypertension, Obesity, and Ovarian cyst. Assessment: Pt is alone for nutritional counseling today. Her weight was 351 lbs and this is 1.2 lb wt gain/month. Pt admits weight gain is from being out of town for 2 weeks and eating out daily. Pt has been attending our bariatric support group meeting. November bariatric support group meeting flyer was given. Bariatric packet # 4 was given and discussed. Pt encouraged to continue and is anxiously awaiting herweight loss surgery. Diet Recall: Breakfast: Oikos yogurt, strawberries, water. Lunch: 2 turkey wraps with egg, white wrap, mustard, lettuce, cheese, unsweet tea. Dinner: Healthy choice power bowl, water. Snacks: apples and grapes Beverages: none. Personal Goals: lose more weight Support System: family Barriers to change: none Exercise: walk laps 3-4 times/week. Anthropometrics: Ht 165.1 cm (5' 5 ) BMI 58.03 kg/m?? IBW/kg (Calculated) : 56.7 kg. Weight= 351 lbs. Wt Readings from Last 3 Encounters: 10/12/22 (!) 158.2 kg (348 lb 11.2 oz) 09/14/22 (!) 159.1 kg (350 lb 12.8 oz) 08/17/22 (!) 166.1 kg (366 lb 3.2 oz) No results found for: CALCBMI Relevant [...] nutrition-related knowledge deficit Related to: Lack of education, Lack of adherence, Food choices, Lack of activity Evidenced by: Physical finding, Patient interview, BMI 40 or more Nutritional Needs: Total Kcal/kg Estimated Needs : 1592.13 Kcal/k Total Protein Estimated Needs (gm): 159.21 Protein Needs Based on g/k.0 Total Fat Estimated Needs (gm): 35.38 Fat Needs Based on % of Calories: 20 Total Fluid Estimated Needs: 1592.13 Fluid Needs Based on : 1 ml/kcal [...] ordering kids or lunch meals, and asking hotel server for to-go box at beginning of meal. Discussed choosing lean protein and opting for unsaturated fats over saturated fats. Encouraged Maeve Ross to incorporate physical activity as permitted by MD with overall goal of 150 minutes per week. Patient Center Goals: lose more weight 1-5 lbs/month Monitoring/Evaluation: Weight changes Food diary Weight loss goals Continue exercising Evaluation of Learning: Pt Maeve Ross verbalized understanding Pt is in Action stage of change. Expect adherence to recommendations to be good. Pt to follow up one month post op for support/reinforcement. Communication sent to referring provider with education provided and desired outcomes Yareli Fields RDN, LDN. documented in this encounter Plan of Treatment Scheduled Referrals Name Type Priority Associated Diagnoses Order Schedule Ambulatory referral to Nutrition Services Outpatient Referral Routine Encounter for nutrition evaluation prior to bariatric surgery Morbid obesity (HCC) Once for 1 Occurrences starting 11/09/2022 until 11/09/2022 documented as of this encounter Visit Diagnoses Diagnosis Encounter for nutrition evaluation prior to bariatric surgery Morbid obesity (HCC) Morbid obesity documented in this encounter Care Teams Associate Publisher Relationship Specialty Start Date End Date Rox Bustillo NP [address] [address] PCP - General Family Medicine 04/21/21 No, Physician 01/10/17 documented as of this encounter
--- OUTSIDE RECORDS SUMMARY | 2024-06-13 23:57 | XMS_ITS | Encounter Summary ---
Author Organization [facility] Medical [facility] Address [address] [place] [address] Care Team Providers Care Aluminum Siding Mechanic Name Role Phone No, Physician Unavailable Rox Bustillo NP Primary Care Provider [phone] Reason for Visit * Reason Comments Obesity Bariatric 5 Encounter Details Date Type Department Care Team ([facility] Contact Info) Description 11/14/2022 8:20 AM CDT Office Visit [facility] [address] [facility] [address] [place] [phone] Nayan Rosario MD [address] [place] [address] [address] [place] [address] BMI 45.0-49.9, adult (HCC) (Primary Dx) Social [...] file 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 Gender Identity Not on file Sexual Orientation Not on file documented as of this encounter Last Filed Vital Signs Vital Sign Reading Time Taken Comments Blood Pressure 134/84 11/14/2022 8:26 AM CDT Pulse 87 11/14/2022 8:26 AM CDT Temperature 36.2 ??C (97.1 ??F) 11/14/2022 8:26 AM CD T Respiratory Rate - - Oxygen Saturation 96% 11/14/2022 8:26 AM CDT Inhaled Oxygen Concentration - - Weight 158.8 kg (350 lb) 11/14/2022 8:26 AM CDT Height 165.1 cm (5' 5 ) 11/14/2022 8:26 AM CDT Body Mass Index 58.24 11/14/2022 8:26 AM CDT documented in this encounter Progress Notes * Nayan Rosario MD - 11/14/2022 8:20 AM [...] 8:45 AM 11/14/2022 documented in this encounter Miscellaneous Notes * Assessment & Plan Note - Nayan Rosario MD - 11/14/2022 8:45 AM CDTAssociated Problem(s): BMI 45.0-49.9, adult (HCC) Continue small frequent meals. Continue to work with the dietitian. Exercise as tolerates. We will follow back up with her next month. documented in this encounter Plan of Treatment Not on file documented as of this encounter Visit Diagnoses Diagnosis BMI 45.0-49.9, adult (HCC)- Primary documented in this encounter Discontinued Medications Medication Sig Discontinue Reason Start Date End Da te amoxicillin-clavulanate (AUGMENTIN) 875-125 mg per tablet Take 1 tablet by mouth every 12 (twelve) hours for 10 days Therapy completed 09/07/2022 11/14/2022 documented as of this encounter Care Teams Aluminum Siding Mechanic Relationship Specialty Start Date End Date Rox Bustillo NP [address] [address] PCP - General Family Medicine 04/21/21 No, Physician 01/10/17 documented as of this encounter
--- OUTSIDE RECORDS SUMMARY | 2024-06-13 23:57 | XMS_ITS | Encounter Summary ---
Author Organization [facility] Address [address] [place] [address] Care Team Providers Care Ophthalmology Surgical Technician Name Role Phone No, Physician Unavailable Rox Bustillo NP Primary Care Provider [phone] Reason for Visit * Reason Comments Morbid Obesity Sleeve 01/17/23Last w eight 12/12/22 343 lb 1.6 oz Encounter Details Date Type Department Care Team (Late st Contact Info) Description 2023 11:00 AM CDT Office Visit [facility] [address] [place] [address] Nayan Rosario MD [address] [place] [address] [address] [place] [address] BMI 45.0-49.9, adult (HCC) (Primary Dx) Social [...] week 01/18/2023 How often do you attend hoahaoism or worship serv ices? Never 01/18/2023 Do you belong to any clubs o r organizations such as hoahaoism groups, unions, fraternal or athletic groups, or [...] staff should administer the PHQ-9) 0 01/18/2023 [facility] [...] to sleep or slept in a senior care (including now)? No 01/18/2023 Personal Safety Answer Date Recorded Have you ever been in or are you currently in a harmful physical or emotional relationship or is someone making you feel afraid or unsafe? 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 Gender Identity Not on file Sexual Orientation Not on file documented as of this encounter Last Filed Vital Signs Vital Sign Reading Time Taken Comments Blood Pressure 130/86 2023 10:50 AM CDT Pulse 90 2023 10:50 AM CDT Temperature 36.1 ??C (96.9 ??F) 2023 10:50 AM C DT Respiratory Rate - - Oxygen Saturation 90% 2023 10:50 AM CDT Inhaled Oxygen Concentration - - Weight 145 kg (319 lb 9.6 oz) 2023 10:50 A M CDT Height 165.1 cm (5' 5 ) 2023 10:50 AM CDT Body Mass Index 53.18 2023 10:50 AM CDT documented in this encounter Progress Notes * Nayan Rosario MD - 2023 11:00 AM CDT Progress Note Subjective: HPI: Only complaint is some overall weakness and fatigue since surgery. Denies any significant nausea. Pain continues to improve Objective: Vitals BP 130/86 (BP Location: Right arm, Patient Position: Sitting) Pulse 90 Temp 36.1 ??C (96.9 ??F) Ht 165.1 cm (5' 5 ) Wt (!) 145 kg (319 lb 9.6 oz) LMP 12/18/2022 (Exact Date) SpO2 90% BMI 53.18 kg/m?? Physical Exam Incisions clean, dry and intact Assessment/Plan Diagnoses and all orders for this visit: BMI 45.0-49.9, adult (HCC) (Primary) Assessment & Plan: Continue small frequent meals. Continue to advance diet as laid out in post bariatric handout. Continue calcium, multivitamin vitamin-D. Continue Pepcid the 1st month. We will see her back in 1 month. No submerging incisions for another week. She will call sooner if any changes arise Nayan Rosario MD 2:57 PM 2023 documented in this encounter Miscellaneous Notes * Assessment & Plan Note - Nayan Rosario MD - 2023 2:57 PM CDTAssociated Problem(s): BMI 45.0-49.9, adult (HCC) Continue small frequent meals. Continue to advance diet as laid out in post bariatric handout. Continue calcium, multivitamin vitamin-D. Continue Pepcid the 1st month. We will see her back in 1 month. No submerging incisions for another week. She will call sooner if any changes arise documented in this encounter Plan of Treatment Not on file documented as of this encounter Visit Diagnoses Diagnosis BMI 45.0-49.9, adult (HCC)- Primary documented in this encounter Care Teams Ophthalmology Surgical Technician Relationship Specialty Start Date End Date Rox Bustillo NP [address] [address] PCP - General Family Medicine 04/21/21 No, Physician 01/10/17 documented as of this encounter
--- OUTSIDE RECORDS SUMMARY | 2024-06-13 23:57 | XMS_ITS | Encounter Summary ---
Author Organization [facility] Healthcare Address [address] [place] [address] Care Team Providers Care Senior Python Developer Name Role Phone No, Physician Unavailable Rox Bustillo NP Primary Care Provider + [phone] Reason for Visit * Auth/Cert (Routine) Specialty Diagnoses / Procedures Referred By Contac t Referred To Contact Diagnoses Heartburn Heartburn [R12] Procedures [place] EGD TRANSORAL BIOPSY SINGLE/MULTIPLE ESOPHAGOGASTRODUODENOSCOPY Referral ID Status Reason Start Date Expiration Date Visits Re quested Visits Authorized [id number] 1 1 Encounter Details Date Type Department Care Team (Late st Contact Info) Description 11/14/2022 1:26 PM CDT Anesthesia Event [address] [address] Katja Tovar Jr., MD [address] [facility] [address] [place] [address] Elda Monteiro CRNA [address] [facility] [address] [place] [address] Anesthesia Record Procedure Summary Procedure Name Responsible Anesthesiologist Anesthesia Start Time Anesthesia Stop Time ESOPHAGOGASTRODUODENOSCOPY BIOPSY Katja Tovar Jr., MD 11/14/22 1326 11/14/22 1338 Events Date Time Event Comment 11/14/2022 1300 1322 In Room 1326 An Start 1326 An Start Data 1326 Start Supplemental O2 1327 Proc Start 1328 Patient Positioned Laterally 1328 An Induction The patient was reevaluated immediately before moderate or deep sedation use and before anesthesia induction. 1331 Anesthesia Ready 1335 Proc Fin 1336 an stop data 1337 Out of Room 1338 Handoff to RN I completed my handoff [...] Patient disposition at the time of handoff: PACU 1338 An Stop Meds Name Total lidocaine (cardiac) syringe 2 % 100 mg propofol 120 mg ketamine 20 mg benzocaine (HURRICAINE ONE) mouth spray 20 % 1 spray dexmedeTOMIDine infusion 8 mcg sodium chloride 0.9% infusion 200 mL * Agents No agents on file. * Blood No blood administrations on file. 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 Gender Identity Not on file Sexual Orientation Not on file documented as of this encounter OR Notes * Anesthesia Postprocedure Evaluation - Katja Tovar Jr., MD - 11/14/2022 2:12 PM CDT Patient: Maeve Ross Procedure Summary Date: 11/14/22 Room / Location: [facility] ROOM 2 / [facility] Anesthesia Start: 1326 Anesthesia Stop: 1338 Procedure: ESOPHAGOGASTRODUODENOSCOPY BIOPSY Diagnosis: Heartburn (Heartburn [R12]) Providers: Nayan Rosario MD Responsible Provider: Katja Tovar Jr., MD Anesthesia Type: general/TIVA ASA Status: 3 Anesthesia Type: general/TIVA Last vitals BP 161/77 Pulse 75 Temp 36.9 ??C (98.5 ??F) (Temporal) Resp 16 SpO2 99% Anesthesia Post Evaluation Patient location during evaluation: PACU Patient participation: complete - patient participated 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 * Anesthesia Preprocedure Evaluation - Katja Tovar Jr., MD - 11/14/2022 11:57 AM CDT Images from the original note were not included. Anesthesia Evaluation Maeve Ross is a 22 y.o. female Procedure(s): ESOPHAGOGASTRODUODENOSCOPY Pre-Op Diagnosis Codes: * Heartburn [R12] HISTORY Past Medical History Information obtained from: patient and chart. Cardiovascular + Hypertension Hepatic / Heme + History of anemia Endocrine / Other + Obesity (BMI >30)- morbid obesity (BMI>40). Patient Active Problem List Diagnosis ??? Biliary dyskinesia ??? BMI 45.0-49.9, adult (HCC) ??? Epigastric pain ??? Cervicitis ??? Achilles tendinitis of right lower extremity ??? Heartburn Past Medical History: Diagnosis Date ??? Anemia ??? Hypertension ??? Obesity ??? Ovarian cyst Past Surgical History: Procedure Laterality Date ??? CHOLECYSTECTOMY ??? OTHER SURGICAL HISTORY myringotomy ??? OTHER SURGICAL HISTORY exploratory laparoscopic cyst on ovary ??? UPPER GASTROINTESTINAL ENDOSCOPY 11/14/2022 OB History No obstetric history on file. Allergies Allergen Reactions ??? Penicillins Swelling Taking? Last Dose Start Date End Date Provider medroxyPROGESTERone (PROVERA) 10 mg tablet Past Month 07/05/22 -- Tracey Foster MD metoprolol XL (TOPROL-XL) 25 mg extended release tablet 11/14/2022 05/15/22 -- Tracey Foster MD triamterene-hydroCHLOROthiazide 37.5-25 mg per tablet 11/14/2022 01/14/20 -- Tracey Foster MD Current Facility-Administered Medications: ??? ondansetron (ZOFRAN) injection 4 mg, 4 mg, intravenous, Q30 Min PRN ??? sodium chloride 0.9% infusion, 30 mL/hr, intravenous, Continuous ??? sodium chloride 0.9% infusion, 125 mL/hr, intravenous, Continuous Social History Tobacco Use Smoking Status Never Smokeless Tobacco Never Vaping Use ??? Vaping Use: Never used Alcohol Use: Not At Risk (11/13/2022) AUDIT-C ??? Frequency of Alcohol Consumption: Monthly or less ??? Average Number of Drinks: 1 or 2 ??? Frequency of Binge Drinking: Never Recent Concern: Alcohol Use - Heavy Drinker (09/14/2022) AUDIT-C ??? Frequency of Alcohol Consumption: Monthly or less ??? Average Number of Drinks: 1 or 2 ??? Frequency of Binge Drinking: Monthly Substance and Sexual Activity Drug Use No Family History Problem Relation Age of Onset ??? Anemia Mother ??? Cancer Father ??? Bladder Cancer Father ??? Heart disease Father ??? Stroke Father ??? Diabetes Father ??? Multiple sclerosis Father's Sister ??? Hearing loss Maternal Grandfather ??? Stroke Paternal Grandmother ??? Diabetes Paternal Grandmother ??? Hearing loss Paternal Grandfather ??? Diabetes Paternal Grandfather Vitals: 11/14/22 1146 BP: 127/88 Pulse: 64 Resp: 16 Temp: 36.5 ??C (97.7 ??F) SpO2: 99% PT: 11/13/2022: 11.4 sec INR: 11/13/2022: 1.0 APTT: No results found for requested labs within last 30 days. Hgb A1C: 11/14/2022: 5.2 % CBC RBC: 11/13/2022: 4.68 M/cumm RDW: No results found for requested labs within last 30 days. MCHC: 11/13/2022: 31.3 g/dL (L) MCH: 11/13/2022: 24.8 pg (L) MCV: 11/13/2022: 79.3 fL (L) Hct: 11/13/2022: 37.1 % Hgb: 11/13/2022: 11.6 g/dL (L) WBC: 11/13/2022: 10.9 K/cumm (H) MPV: 11/13/2022: 11.9 fL Platelets: 11/13/2022: 277 K/cumm RDW CV: 11/13/2022: 16.9 % (H) RDW Sd: 11/13/2022: 47.8 fL BMP Glucose: 11/13/2022: 105 mg/dL Calcium: 11/13/2022: 9.3 mg/dL Sodium: 11/13/2022: 139 mmol/L Potassium: 11/13/2022: 4.2 mmol/L CO2: 11/13/2022: 28 mmol/L Chloride: 11/13/2022: 101 mmol/L BUN: 11/13/2022: 21 mg/dL Creatinine: 11/13/2022: 0.64 mg/dL DOS Physical Exam Medical history, medications, and allergies reviewed. Attestation: This PAT evaluation 11/14/2022. Airway Exam: Mallampati: II Cervical ROM: FROM TM distance: >4 Cardiovascular Exam: Rate: regular Rhythm: regular Pulmonary Exam: LCTA, bilat Current state: Patient's current state is cooperative. Anesthesia Plan ASA 3 My patient is approved for the Anesthesia Controlled Medication protocol when under care of a LEASING REPRESENTATIVE Planned anesthesia: General/TIVA Induction: Induction: intravenous. Postoperative Plan: Patient's planned disposition post procedure is Outpatient. Informed Consent: Discussed plan with LEASING REPRESENTATIVE and attending. Anesthesia plan and risks discussed with patient. Consent and Attending signature: I and/or my designee have discussed the anesthesia plan, benefits, possible alternatives, parental presence at time of induction (if indicated), and clinically relevant risks that may include dental injury, unintentional awareness, and/or other complications. The patient and/or parent/legal guardian understand, and agree to proceed. All questions answered. documented in this encounter Miscellaneous Notes * Addendum Note - Katja Tovar Jr., MD - 11/14/2022 2:47 PM CDT Addendum created 11/14/22 1447 by Katja Tovar Jr., MD Flowsheet accepted documented in this encounter Plan of Treatment Not on file documented as of this encounter Visit Diagnoses Not on filedocumented in this encounter Administered Medications Inactive Administered Medications - up to 3 most recent administrations Medication Order MAR Action Action Date Dose Rate Site benzocaine (HURRICAINE) 20 % mouth spray mouth/throat, As needed, Starting on Sun11/14/22 at 1326, Anesthesia Intra-op Given 11/14/2022 1:26 PM CDT 1 spray dexmedeTOMIDine in 0.9% sodium chloride (PRECEDEX) 200 mcg/50 mL (4 mcg/mL) infusion (premix) intravenous, As needed, Starting on Sun11/14/22 at 1331, Anesthesia Intra-op Given 11/14/2022 1:31 PM CDT 8 mcg ketamine (KETALAR) injection intravenous, As needed, Starting on Sun11/14/22 at 1331, Anesthesia Intra-op Given 11/14/2022 1:28 PM CDT 20 mg lidocaine (XYLOCAINE) 20 mg/mL (2 %) preservative free injection intravenous, As needed, Starting on Sun11/14/22 at 1331, Anesthesia Intra-op Given 11/14/2022 1:28 PM CDT 100 mg propofoL (DIPRIVAN) 10 mg/mL IV intravenous, As needed, Starting on Sun11/14/22 at 1328, Anesthesia Intra-op Given 11/14/2022 1:31 PM CDT 20 mg Given 11/14/2022 1:28 PM CDT 100 mg sodium chloride 0.9% infusion 125 mL/hr, intravenous, Continuous, Starting on Sun11/14/22 at 1230, Recovery (GI) New Bag 11/14/2022 1:22 PM CDT documented in this encounter Care Teams Senior Python Developer Relationship Specialty Start Date End Date Rox Bustillo NP [address] [address] PCP - General Family Medicine 04/21/21 No, Physician 01/10/17 documented as of this encounter
--- OUTSIDE RECORDS SUMMARY | 2024-06-13 23:57 | XMS_ITS | Encounter Summary ---
Author Organization [facility] Healthcare Address [address] [place] [address] Care Team Providers Care Hearing Aid Technician Name Role Phone No, Physician Unavailable Rox Bustillo NP Primary Care Provider + [phone] Reason for Visit * Auth/Cert (Routine) Specialty Diagnoses / Procedures Referred By Guillaume t Referred To Contact Diagnoses Heartburn Heartburn [R12] Procedures [place] EGD TRANSORAL BIOPSY SINGLE/MULTIPLE ESOPHAGOGASTRODUODENOSCOPY Referral ID Status Reason Start Date Expiration Date Visits Re quested Visits Authorized [id number] 1 1 Encounter Details Date Type Department Care Team (Late st Contact Info) Description 11/14/2022 8:45 AM CDT [address] Morbid obesity (HCC) Social History Tobacco Use Types Packs/Day [...] on file 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 Gender Identity Not on file Sexual Orientation Not on file documented as of this encounter Plan of Treatment Not on file documented as of this encounter Procedures Procedure Name Priority Date/Time Associated Diagnosis Comments THYROID FUNCTION CASCADE Routine 11/14/2022 8:47 AM CDT Morbid obesity (HCC) VITAMIN D 25 HYDROXY Routine 11/14/2022 8:47 AM CDT Morbid obesity (HCC) HEMOGLOBIN A1C Routine 11/14/2022 8:47 AM CDT Morbid obesity (HCC) FOLATE Routine 11/14/2022 8:47 AM CDT Morbid obesity (HCC) FERRITIN Routine 11/14/2022 8:47 AM CDT Morbid obesity (HCC) VITAMIN B12 Routine 11/14/2022 8:47 AM CDT Morbid obesity (HCC) LIPID PANEL Routine 11/14/2022 8:47 AM CDT Morbid obesity (HCC) documented in this encounter Results * Vitamin B12 (11/14/2022 8:47 AM CDT) Vitamin B12 534 230 - 1,250 pg/mL [facility] ([place]) Blood 11/14/2022 8:47 AM CDT 11/14/2022 10:08 AM CDT us Nayan Rosario MD LAB BLOOD ORDERA BLES Final Result Performing Organization Address City/[facility] Co de Phone Number [facility] ([place]) [address] [facility] Department [place] [address] * Vitamin D 25 hydroxy (11/14/2022 8:47 AM CDT) Vitamin D 25-OH 34 30 - 80 ng/mL [facility] ([place]) Blood 11/14/2022 8:47 AM CDT 11/14/2022 10:08 AM CDT Nayan Rosario MD LAB BLOOD ORDERA BLES Final Result [facility] ([place]) [address] [facility] Department [place] [address] * (ABNORMAL) Lipid panel (11/14/2022 8:47 AM CDT) [facility] Signature Cholesterol 163 30 - 199 mg/dL [facility] ([place]) Comment: Interpretive Data Ages < or = 19 years ??Acceptable: ? <170 mg/dL ??Borderline high: ??170-199 mg/dL ??High: ? >or= 200 mg/dL Ages > or = 20 years ??Desirable: ?<200 mg/dL ??Borderline high: ??200-239 mg/dL ??High: ? >or= 240 mg/dL Literature References: 1. Expert Panel on Integrated Guidelines for Cardiovascular Health and Risk Reduction in Children and Adolescents. Pediatrics 2011;128:S213 2. NCEP Expert Panel. Circulation 2004;110:227 Current Interpretive Data was last revised on 2018. Triglycerides 169(H) <=149 mg/dL [facility] ([place]) Comment: Interpretive Data Ages < or = 9 years ??Acceptable: ? <75 mg/dL ??Borderline high: ??75-99 mg/dL ??High: ? >or= 100 mg/dL Ages 10 to 20 years ??Acceptable: ? <90 mg/dL ??Borderline high: ??90-129 mg/dL ??High: ? >or= 130 mg/dL Ages > or = 20 years ??Desirable: ?<150 mg/dL ??Borderline high: ??150-199 mg/dL ??High: ? 200-499 mg/dL ?Very high: ?? >or= 499 mg/dL Literature References: 1. Expert Panel on Integrated Guidelines for Cardiovascular Health and Risk Reduction in Children and Adolescents. Pediatrics 2011;128:S213 2. NCEP Expert Panel. Circulation 2004;110:227 Current Interpretive Data was last revised on 2018. HDL 43 >=40 mg/dL [facility] ([place]) Comment: Interpretive Data Ages < or = 19 years ??Acceptable: ? >45 mg/dL ??Borderline low: ?? 40-45 mg/dL ??Low: ? <40 mg/dL Ages > or = 20 years ??Desirable: ?>or= 60 mg/dL ??Low: ? <40 mg/dL Literature References: 1. Expert Panel on Integrated Guidelines for Cardiovascular Health and Risk Reduction in Children and Adolescents. Pediatrics 2011;128:S213 2. NCEP Expert Panel. Circulation 2004;110:227 Current Interpretive Data was last revised on 2018. LDL, calculated 86 <=129 mg/dL [facility] ([place]) Comment: Interpretive Data Ages < or = 19 years ??Acceptable: ? <110 mg/dL ??Borderline high: ??110-129 mg/dL ??High: ?>or= 130 mg/dL Ages > or = 20 years ??Optimal: ? <100 mg/dL ??Near optimal: ?100-129 mg/dL ??Borderline high: ?? 130-159 mg/dL ??High: ?>160 mg/dL Literature References: 1. Expert Panel on Integrated Guidelines for Cardiovascular Health and Risk Reduction in Children and Adolescents. Pediatrics 2011;128:S213 2. NCEP Expert Panel. Circulation 2004;110:227 Current Interpretive Data was last revised on 2018. Non-HDL Cholesterol 120 mg/dL [facility] ([place]) Comment: Interpretive Data Ages < or = 19 years ??Acceptable: ?<120 mg/dL ??Borderline high: ??120-144 mg/dL ??High: ?>145 mg/dL Ages > or = 20 years ??When triglycerides are >200 mg/dL, Non-HDL cholesterol is a secondary target of ? therapy with treatment goals that are 30 mg/dL greater than the LDL cholesterol target. ? Literature References: 1. Expert Panel on Integrated Guidelines for Cardiovascular Health and Risk Reduction in Children and Adolescents. Pediatrics 2011;128:S213 2. NCEP Expert Panel. Circulation 2004;110:227 Current Interpretive Data was last revised on 2018. Chol/HDL ratio 4 [facility] ([place]) Blood 11/14/2022 8:47 AM CDT 11/14/2022 10:08 AM CDT Nayan Rosario MD LAB BLOOD ORDERA BLES Final Result Performing Organization Address [facility] de Phone Number [facility] ([place]) [address] [facility] [place] [address] * Hemoglobin A1c (11/14/2022 8:47 AM CDT) Hgb A1C 5.2 4.0 - 5.6 % [facility] ([place]) Estimated Average Glucose 103 mg/dL [facility] ([place]) Comment: The ADA recommends reporting an estimated Average Glucose (eAG) with all Hemoglobin A1c results using the equation derived from a study of 507 normal and diabetic adults. ??Minority populations were underrepresented and children were not included. ?? (Diabetes Care 31:9546-7412, 2008). ??The eAG is not equivalent to a fasting glucose. Blood 11/14/2022 8:47 AM CDT 11/14/2022 10:08 AM CDT Nayan Rosario MD LAB BLOOD ORDERA BLES Final Result Performing Organization Address [facility] Co de Phone Number [facility] ([place]) 1 [facility] [address] * Folate (11/14/2022 8:47 AM CDT) Folic acid >20.0 >=5.0 ng/mL [facility] ([place]) Comment:Slightly Hemolyzed S pecimen. Results may be affected. Blood 11/14/2022 8:47 AM CDT 11/14/2022 10:08 AM CDT Nayan Rosario MD LAB BLOOD ORDERA BLES Final Result [facility] ([place]) 1 [facility] [employer] [place] [address] * TSH reflex to free T4 (11/14/2022 8:47 AM CDT) TSH 2.53 0.30 - 4.20 mcIUnit/mL [facility] ([place]) Blood 11/14/2022 8:47 AM CDT 11/14/2022 10:08 AM CDT Nayan Rosario MD LAB BLOOD ORDERA BLES Final Result Performing Organization Address City/[facility]/ZIP Co de Phone Number [facility] ([place]) [address] [facility] [employer] [place] [address] * Ferritin (11/14/2022 8:47 AM CDT) Ferritin 19 15 - 150 ng/mL [facility] ([place]) Blood 11/14/2022 8:47 AM CDT 11/14/2022 10:08 AM CDT Nayan Rosario MD LAB BLOOD ORDERA BLES Final Result Performing Organization Address City/[facility]/ZIP Co de Phone Number [facility] ([place]) 1 [facility] [employer] [place] [address] documented in this encounter Visit Diagnoses Diagnosis Morbid obesity (HCC) Morbid obesity documented in this encounter Care Teams Hearing Aid Technician Relationship Specialty Start Date End Date Rox Bustillo NP [address] [address] PCP - General Family Medicine 04/21/21 No, Physician 01/10/17 documented as of this encounter
--- OUTSIDE RECORDS SUMMARY | 2024-06-13 23:57 | XMS_ITS | Encounter Summary ---
Author Organization [facility] Medical [facility] Address [address] [place] [address] Care Team Providers Care Search Engine Optimization Consultant Name Role Phone No, Physician Unavailable Rox Bustillo NP Primary Care Provider + [phone] Encounter Details Date Type Department Care Team (Late st Contact Info) Description 02/07/2023 Telephone [facility] [address] [facility] [address] [place] [address] Timmy Velarde, EBEN Social History Tobacco Use Types Packs/Day Years [...] week 01/18/2023 How often do you attend religion or catholic serv ices? 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 She denied it being Covid.But says she has not been able to keep anything down since. She said she had a fever on and off forthe first couple of days, but has not had a fever since. She forgot she had the Zofran from her surgery. So she is going to take that. She says she might steve little dehydrated, but is going to take the Zofran and then hopefully will be able to rehydrate. Advised her to keep us up to date with how she is feeling and if need be we could order her an infusion. But we would have to wait until the virus is out of her system (unless she went to the ER). Pt verbalized good understanding. Message sent to Dr Rosario to update and for other recommendations. documented in this encounter Plan of Treatment Not on file documented as of this encounter Visit Diagnoses Not on filedocumented in this encounter Care Teams Search Engine Optimization Consultant Relationship Specialty Start Date End Date Rox Bustillo NP [address] [address] PCP - General Family Medicine 04/21/21 No, Physician 01/10/17 documented as of this encounter
--- OUTSIDE RECORDS SUMMARY | 2024-06-13 23:57 | XMS_ITS | Encounter Summary ---
Author Organization [facility] Medical Group Address [address] [place] [address] Care Team Providers Care Brass Wind Instrument Maker Name Role Phone No, Physician Unavailable Rox Bustillo NP Primary Care Provider [phone] Reason for Visit * Reason Comments Morbid Obesity Sleeve 01/17/2023Last weight 319 lb 9.6 oz 01/25/23 Encounter Details Date Type Department Care Team (Late st Contact Info) Description 02/27/2023 9:10 AM CDT Office Visit [facility] [address] [facility] [address] [place] [address] Nayan Rosario MD [address] [place] [address] [address] [place] [address] BMI 45.0-49.9, adult (HCC) (Primary Dx) Social [...] week 01/18/2023 How often do you attend confucianism or yarsanism serv ices? 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 Gender Identity Not on file Sexual Orientation Not on file documented as of this encounter Last Filed Vital Signs Vital Sign Reading Time Taken Comments Blood Pressure 129/84 02/27/2023 8:52 AM CDT Pulse 87 02/27/2023 8:52 AM CDT Temperature - - Respiratory Rate - - Oxygen Saturation 96% 02/27/2023 8:52 AM CDT Inhaled Oxygen Concentration - - Weight 138.8 kg (306 lb 1.6 oz) 02/27/2023 8:52 AM CDT Height 165.1 cm (5' 5 ) 02/27/2023 8:52 AM CDT Body Mass Index 50.94 02/27/2023 8:52 AM CDT documented in this encounter Progress Notes * Nayan Rosario MD - 02/27/2023 9:10 AM CDT Images from the original note were not included. Post Op Note Subjective: Patient Name: Maeve Ross Date of Visit: 02/27/23 HPI: No complaints since surgery. Patient denies any significant pain. Tolerating her diet Chief Complaint: Morbid Obesity (Sleeve 01/17/2023//Last weight 319 lb 9.6 oz 01/25/23) Objective: Vitals BP 129/84 (BP Location: Right arm, Patient Position: Sitting) Pulse 87 Ht 165.1 cm (5' 5 ) Wt (!) 138.8 kg (306 lb 1.6 oz) SpO2 96% BMI 50.94 kg/m?? Physical Exam Incisions clean, dry and intact Assessment/Plan Diagnoses and all orders for this visit: BMI 45.0-49.9, adult (HCC) (Primary) Assessment & Plan: Patient was little concerned and wanted to lose a little bit more weight. We have discussed that she can stay on the liquid diet with protein supplementation as long as she would like. She can continue to increase her exercise tolerance. Continue to work with the dietitian. We will see her back in 2 months. 9:21 AM 02/27/2023 documented in this encounter Miscellaneous Notes * Assessment & Plan Note - Nayan Rosario MD - 02/27/2023 9:21 AM CDTAssociated Problem(s): BMI 45.0-49.9, adult (HCC) Patient was little concerned and wanted to lose a little bit more weight. We have discussed that she can stay on the liquid diet with protein supplementation as long as she would like. She can continue to increase her exercise tolerance. Continue to work with the dietitian. We will see her back in 2 months. documented in this encounter Plan of Treatment Not on file documented as of this encounter Visit Diagnoses Diagnosis BMI 45.0-49.9, adult (HCC)- Primary documented in this encounter Care Teams Brass Wind Instrument Maker Relationship Specialty [place] [address] [place], [place] [id number] PCP - General Family Medicine 04/21/21 No, Physician 01/10/17 documented as of this encounter
--- OUTSIDE RECORDS SUMMARY | 2024-06-13 23:57 | XMS_ITS | Encounter Summary ---
Author Organization [facility] Medical Group Address [address] [place] [address] Care Team Providers Care Physical Laboratory Assistant Name Role Phone No, Physician Unavailable Damian Verde NP Primary Care Provider [phone] Reason for Visit * Reason Onset Date Comments Covid-19 Home Monitoring 06/22/2020 Enrollm ent call day 2 Encounter Details Date Type Department Care Team (Late st Contact Info) Description 06/22/2020 Telephone [facility] Accountable Care Organization [address] [place] [id number] Marcia Valladares MA [address] [place] [address] [address] [place] [address] Covid-19 Home Monitoring (Enrollment call day 2) Social History Tobacco Use Types Packs/Day Years Used Date Smoking Tobacco: Never Smokeless Tobacco: Never Alcohol Use Standard Drinks/Week Comments Yes 0 (1 standard drink = 0.6 oz pur e alcohol) occasional Comments No Sex and Gender Information Value Date Recorded Sex Assigned at Not on file 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 The patient was contacted via phone for enrollment in the program. The following criteria were reviewed with the patient: - Active MyChart (or willing to activate today): No Please send patient activation link and confirm that they have received. Patients with active MyChart but who are uncertain how to access should be directed to the MyChart support center at: [phone] or [phone]. - Tablet or SmartPhone with Retail Infot Vonnie or ability to download Calester Vonnie today: No - Agree to complete a daily questionnaire about their symptoms (this will be sent to their phone ator around 9am daily): No The patient was informed that members of the healthcare team will contact them depending on the symptoms that they report. This call could come from a variety of phone numbers depending on which member of the healthcare team is contacting the patient, and the patient should be prepared to answer calls from a variety of phone numbers. If the patient reports concerning symptoms but is unable to be contacted, the police department maybe contacted to perform a security check. After review, the patient declined to participate. The ???COVID19 Home Monitoring?? order was not placed to enroll the patient. Hotline number provided if needed R TECHNICIAN documented in this encounter Plan of Treatment Not on file documented as of this encounter Visit Diagnoses Not on filedocumented in this encounter Additional Health Concerns Infection Onset Date Last Indicated Resolved Time COVID19 Comment:Added from the Screening question BPA, identifying patients that tested positive for COVID in the last 14 days and the result is from a facility outside [facility] . 06/06/2020 06/20/2020 07/04/2020 3:05 AM FIBER TECHNICIAN documented as of this encounter Care Teams Physical Laboratory Assistant Relationship Specialty Start Date End Date Damian Verde NP [address] [facility] [address] [place] [address] [address] PCP - General 04/24/20 04/20/21 No, Physician 01/10/17 documented as of this encounter
--- OUTSIDE RECORDS SUMMARY | 2024-06-13 23:57 | XMS_ITS | Encounter Summary ---
Author Organization [facility] Medical [facility] Address [address] [place] [address] Care Team Providers Care Water Mangle Tender Name Role Phone No, Physician Unavailable Rox Bustillo NP Primary Care Provider [phone] Reason for Referral * Consultation (Routine) - Closed Specialty Diagnoses / Procedures Referred By Contac t Referred To Contact Physical Therapy Diagnoses Morbid obesity (HCC) Nayan Rosario MD Phone: tel: fax: [facility] [address] [place] [address] Referral ID Status Reason Start Date Expiration Date V isits Requested Visits Authorized [id number] Closed Specialty Services Required 08/17/2022 09/16/2023 24 24 Question Answer PTRFR PT Evaluate and Treat Reason for Visit bariatric evaluation Therapy options discussed with patient? Yes Location provided for therapy services is: Patient requested/Patient preferred Please select the performing region: [facility] [[id number]] # of visits: 24 Comments Please schedule with Nallely Encounter Details Date Type Department Care Team (Late st Contact Info) Description 08/17/2022 Orders Only [facility] [address] [facility] [address] [place] [address] Nayan Rosario MD [address] [place] [address] [address] [place], [place] [id number] Morbid obesity (CMS/HCC) (HCC) (Primary Dx) Social History Tobacco Use Types Packs/Day Years Used Date Smoking Tobacco: Never Smokeless Tobacco: Never Alcohol Use Standard Drinks/Week Comments Yes 0 (1 standard drink = 0.6 oz pur e alcohol) occasional Comments No Sex and Gender Information Value Date Recorded Sex Assigned at Not on file 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 Gender Identity Not on file Sexual Orientation Not on file documented as of this encounter Plan of Treatment Scheduled Referrals Name Type Priority Associated Diagnoses Order Schedule Ambulatory referral order to Physical Therapy - Outpatient Referral Routine Morbid obesity ([facility]) (HCC) Expected: 08/31/2022 (Approximate), Expires: 08/18/2023 documented as of this encounter Visit Diagnoses Diagnosis Morbid obesity (HCC)- Primary Morbid obesity documented in this encounter Care Teams Water Mangle Tender Relationship Specialty Start Date End Date Rox Bustillo NP [address] [address] PCP - General Family Medicine 04/21/21 No, Physician 01/10/17 documented as of this encounter
--- OUTSIDE RECORDS SUMMARY | 2024-06-13 23:57 | XMS_ITS | Encounter Summary ---
Author Organization [facility] Healthcare Address [address] [place] [address] Care Team Providers Care Window Shade Cloth Sewer Name Role Phone No, Physician Unavailable Rox Bustillo NP Primary Care Provider [phone] Reason for Visit * Reason Comments PT Initial Eval * Consultation (Routine) - Closed Specialty Diagnoses / Procedures Referred By Guillaume t Referred To Contact Physical Therapy Diagnoses Morbid obesity (HCC) Nayan Rosario MD Phone: tel: fax: [address] [address] Referral ID Status Reason Start Date Expiration Date V isits Requested Visits Authorized [id number] Closed Specialty Services Required 08/17/2022 09/16/2023 24 24 Encounter Details Date Type Department Care Team (Late st Contact Info) Description 09/27/2022 10:45 AM CDT Therapy [facility] Physical Therapy [address] [place] [address] Nallely Urban PT Morbid obesity (HCC) (Primary Dx) Social History Tobacco Use [...] on file 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 Pt states she belongs to a gym. She does not have any physical limitations to prevent her from exercising. She does not currently have any home equipment. Pt is planning on having the gastric sleeve procedure. Goal weight: 190-195lbs Physical limitations: none Hand dominance: left History of falls in the past 6 months: no OBJECTIVE: Gait: WNL Manual Muscle tests: all 5/5 UE/LE General ROM: all WNL UE/LE Resting Vitals: SpO2 - 97% HR - 83 bpm Initial Weight: 350lbs BMI: 58.38 kg/m^2 Six minute walk test: Minute: SpO2 % HR (bpm) RR* Liters of O2 Comments 1 96 122 0 2 95 138 1 3 96 136 1 4 95 142 1 5 96 143 1 6 95 140 1 After 5 min rest 95 97 0 Speed: 2.3 mph. Distance: 0.19 miles. Number of rest breaks: 0 *Modified Dyspnea Scale ASSESSMENT: The pt presented for a PT consult prior to bariatric surgery. The pt was educated on exercise, how to begin/progress/maintain a routine, parameters for cardiovascular and strength training, and how exercise can help with their weight loss. The pt acknowledged their understanding of the education and is cleared by PT at this time. Goal: Pt to acknowledged their understanding of the education. Met PLAN: The pt is discharged from physical therapy at this time. Start Time: 1046 End Time: 1148 Thank you, Nallely Urban, PT, MPT documented in this encounter Plan of Treatment Not on file documented as of this encounter Visit Diagnoses Diagnosis Morbid obesity (HCC)- Primary Morbid obesity documented in this encounter Orders Outpatient Referral Count Last Ordered Date Fir st Ordered Date AMB REFERRAL ORDER TO PHYSICAL THERAPY 1 documented in this encounter Care Teams Window Shade Cloth Sewer Relationship Specialty Start Date End Date Rox Bustillo NP [address] [address] PCP - General Family Medicine 04/21/21 No, Physician 01/10/17 documented as of this encounter
--- OUTSIDE RECORDS SUMMARY | 2024-06-13 23:57 | XMS_ITS | Encounter Summary ---
Author Organization [facility] Healthcare Address [address] [place] [address] Care Team Providers Care Math And Physics Instructor Name Role Phone No, Physician Unavailable Rox Bustillo NP Primary Care Provider + [phone] Encounter Details Date Type Department Care Team (Late st Contact Info) Description 01/24/2023 8:49 PM CDT - 01/24/2023 9:03 PM CDT Emergency [facility] Emergency Department 1 [place] [address] Discharge Disposition: Left without being seen Social History Tobacco Use Types Packs/Day Years [...] week 01/18/2023 How often do you attend mormon or mormon serv ices? 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
--- OUTSIDE RECORDS SUMMARY | 2024-06-13 23:57 | XMS_ITS | Encounter Summary ---
Author Organization [facility] Medical Group Address [address] [place] [address] Care Team Providers Care Medical Technologist Blood Bank Name Role Phone No, Physician Unavailable Rox Bustillo NP Primary Care Provider + [phone] Reason for Visit * Reason Comments Obesity Bariatric 4 Encounter Details Date Type Department Care Team ([facility] Contact Info) Description 10/12/2022 9:30 AM CDT Office Visit [facility] [address] [place] [address] [address] [place] [phone] Nayan Rosario MD [address] [place] [address] [address] [place] [address] BMI 45.0-49.9, adult (HCC) (Primary Dx) Social [...] on file 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 Gender Identity Not on file Sexual Orientation Not on file documented as of this encounter Last Filed Vital Signs Vital Sign Reading Time Taken Comments Blood Pressure 148/86 10/12/2022 9:38 AM CDT Pulse 87 10/12/2022 9:38 AM CDT Temperature 35.8 ??C (96.4 ??F) 10/12/2022 9:38 AM CD T Respiratory Rate - - Oxygen Saturation 97% 10/12/2022 9:38 AM CDT Inhaled Oxygen Concentration - - Weight 158.2 kg (348 lb 11.2 oz) 10/12/2022 9:38 AM CDT Height 165.1 cm (5' 5 ) 10/12/2022 9:38 AM CDT Body Mass Index 58.03 10/12/2022 9:38 AM CDT documented in this encounter Progress Notes * Nayan Rosario MD - 10/12/2022 9:30 AM CDT Progress Note Subjective: HPI: The patient has done well losing another 2 lb since last visit. Overall she is down 18 lb fromthe start. Chief complaint: Morbid obesity Objective: Vitals BP 148/86 (BP Location: Right arm, Patient Position: Sitting) Pulse 87 Temp (!) 35.8 ??C (96.4 ??F) Ht 165.1 cm (5' 5 ) Wt (!) 158.2 kg (348 lb 11.2 oz) SpO2 97% BMI 58.03 kg/m?? Physical Exam Abdomen: Soft, obese Assessment/Plan Diagnoses and all orders for this visit: BMI 45.0-49.9, adult (HCC) (Primary) Assessment & Plan: Patient continues to do well with her weight loss in preparation for surgery. She is really trying to make healthier choices with her p.o. intake and increase her activity. Continue to work with the dietitian. We will encourage her to attend the monthly support group meetings. We will see her back next month to reassess. Nayan Rosario MD 9:06 AM 10/13/2022 documented in this encounter Miscellaneous Notes * Assessment & Plan Note - Nayan Rosario MD - 10/13/2022 9:06 AM CDTAssociated Problem(s): BMI 45.0-49.9, adult (HCC) Patient continues to do well with her weight loss in preparation for surgery. She is really trying to make healthier choices with her p.o. intake and increase her activity. Continue to work with the dietitian. We will encourage her to attend the monthly support group meetings. We will see her back next month to reassess. documented in this encounter Plan of Treatment Not on file documented as of this encounter Visit Diagnoses Diagnosis BMI 45.0-49.9, adult (HCC)- Primary documented in this encounter Care Teams Medical Technologist Blood Bank Relationship Specialty Start Date End Date Rox Bustillo NP [address] [address] PCP - General Family Medicine 04/21/21 No, Physician 01/10/17 documented as of this encounter
--- OUTSIDE RECORDS SUMMARY | 2024-06-13 23:57 | XMS_ITS | Encounter Summary ---
Author Organization [facility] Healthcare Address [address] [place] [address] Care Team Providers Care Fruit Tester Name Role Phone No, Physician Unavailable Rox Bustillo NP Primary Care Provider [phone] Reason for Referral * Consultation (Routine) - Closed Specialty Diagnoses / Procedures Referred By Contac t Referred To Contact Family Medicine Diagnoses Hx of bariatric surgery Morbid obesity (HCC) Nayan Rosario MD Phone: tel: fax: Sai Veronica MD [address] [facility] [address] [place] [address] Phone: tel: fax: Referral ID Status Reason Start Date Expiration Date V isits Requested Visits Authorized [id number] Closed Specialty Services Required 06/20/2023 07/19/2024 1 1 Question Answer Please select the performing region: [facility] [[id number]] To provider: SAI VERONICA [[id number]] # of visits: 1 UTER TECHNOLOGY INSTRUCTOR Encounter Details Date Type Department Care Team ([facility] Contact Info) Description 06/20/2023 Orders Only [facility] [address] [place] [address] [address] [place] [phone] Nayan Rosario MD [address] [place] [address] [address] [place] [address] Hx of bariatric surgery (Primary Dx); Morbid obesity (HCC) Social History Tobacco Use [...] How often do you attend mu-ism or uatsdin serv ices? Never 01/18/2023 Do you belong [...] you are drinking? 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 Gender Identity Not on file Sexual Orientation Not on file documented as of this encounter Plan of Treatment Scheduled Referrals Name Type Priority Associated Diagnoses Order Schedule Ambulatory referral to Family Practice Outpatient Referral Routine Hx of bariatric surgery Morbid obesity (HCC) Expected: 07/04/2023 (Approximate), Expires: 06/20/2024 documented as of this encounter Visit Diagnoses Diagnosis Hx of bariatric surgery- Primary Morbid obesity (HCC) Morbid obesity documented in this encounter Care Teams Fruit Tester Relationship Specialty Start Date End Date Rox Bustillo NP [address] [address] PCP - General Family Medicine 04/21/21 No, Physician 01/10/17 documented as of this encounter
--- OUTSIDE RECORDS SUMMARY | 2024-06-13 23:57 | XMS_ITS | Encounter Summary ---
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 Gender Identity Not on file Sexual Orientation Not on file documented as of this encounter Plan of Treatment Not on file documented as of this encounter Results * Ferritin (11/14/2022 8:47 AM CDT) Ferritin 19 15 - 150 ng/mL MICHEAL ARCHULETA ([place]) Blood 11/14/2022 8:47 AM CDT 11/14/2022 10:08 AM CDT Nayan Rosario MD LAB BLOOD ORDERA BLES Final Result MICHEAL ARCHULETA ([place]) 1 [facility] [place] [address] * TSH reflex to free T4 (11/14/2022 8:47 AM CDT) TSH 2.53 0.30 - 4.20 mcIUnit/mL MICHEAL ARCHULETA ([place]) Blood 11/14/2022 8:47 AM CDT 11/14/2022 10:08 AM CDT us Nayan Rosario MD LAB BLOOD ORDERA BLES Final Result Performing Organization Address [facility]/ZIP Co de Phone Number MICHEAL ARCHULETA ([place]) 1 [facility] [place] [address] * Folate (11/14/2022 8:47 AM CDT) Pathologist [facility] Folic acid >20.0 >=5.0 ng/mL MICHEAL ARCHULETA ([place]) Comment:Slightly Hemolyzed S pecimen. Results may be affected. Blood 11/14/2022 8:47 AM CDT 11/14/2022 10:08 AM CDT Nayan Rosario MD LAB BLOOD ORDERA BLES Final Result MICHEAL ARCHULETA ([place]) 1 [facility] [place] [address] * Hemoglobin A1c (11/14/2022 8:47 AM CDT) Hgb A1C 5.2 4.0 - 5.6 % MICHEAL ARCHULETA ([place]) Estimated Average Glucose 103 mg/dL MICHEAL ARCHULETA ([place]) Comment: The ADA recommends reporting an estimated Average Glucose (eAG) with all Hemoglobin A1c results using the equation derived from a study of 507 normal and diabetic adults. ??Minority populations were underrepresented and children were not included. ?? (Diabetes Care 31:6187-2398, 2008). ??The eAG is not equivalent to a fasting glucose. Blood 11/14/2022 8:47 AM CDT 11/14/2022 10:08 AM CDT us Nayan Rosario MD LAB BLOOD ORDERA BLES Final Result MICHEAL ARCHULETA ([place]) 1 [facility] [place] [address] * (ABNORMAL) Lipid panel (11/14/2022 8:47 AM CDT) [facility] Cholesterol 163 30 - 199 mg/dL MICHEAL [...] last revised on 2018. Chol/HDL ratio 4 [place] ARCHULETA ([place]) Blood 11/14/2022 8:47 AM CDT 11/14/2022 10:08 AM CDT us Nayan Rosario MD LAB BLOOD ORDERA BLES Final Result MICHEAL ARCHULETA ([place]) 1 [facility] [place] [address] * Vitamin D 25 hydroxy (11/14/2022 8:47 AM CDT) Vitamin D 25-OH 34 30 - 80 ng/mL MICHEAL ARCHULETA ([place]) Blood 11/14/2022 8:47 AM CDT 11/14/2022 10:08 AM CDT us Nayan Rosario MD LAB BLOOD ORDERA BLES Final Result MICHEAL ARCHULETA ([place]) 1 [facility] [place] [address] * Vitamin B12 (11/14/2022 8:47 AM CDT) Vitamin B12 534 230 - 1,250 pg/mL MICHEAL ARCHULETA ([place]) Blood 11/14/2022 8:47 AM CDT 11/14/2022 10:08 AM CDT us Nayan Rosario MD LAB BLOOD ORDERA BLES Final Result MICHEAL ARCHULETA ([place]) 1 [facility] [place] [address] documented in this encounter Visit Diagnoses Diagnosis Morbid obesity (HCC)- Primary Morbid obesity documented in this encounter Care Teams Geophysical Operator Relationship Specialty [place] [address] [place] [address] PCP - General Family Medicine 04/21/21 No, Physician 01/10/17 documented as of this encounter
--- OUTSIDE RECORDS SUMMARY | 2024-06-13 23:57 | XMS_ITS | Encounter Summary ---
Author Organization [facility] Healthcare Address [address] [place] [address] Care Team Providers Care Ice Maker Name Role Phone No, Physician Unavailable Rox Bustillo NP Primary Care Provider [phone] Encounter Details Date Type Department Care Team (Latest Contact Info) Description 09/26/2022 7:19 AM CDT - 09/26/2022 11:59 PM CDT Hospital Encounter [facility] Nutrition and Diabetic Education 1 [facility] [address] [place] [address] Fields, Yareli eLchuga, RD 1 [place] [address] Discharge Disposition: Discharge to home or self [...] on file 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 Gender Identity Not on file Sexual Orientation Not on file documented as of this encounter Last Filed Vital Signs Vital Sign Reading Time Taken Comments Blood Pressure - - Pulse - - Temperature - - Respiratory Rate - - Oxygen Saturation - - Inhaled Oxygen Concentration - - Weight - - Height 165.1 cm (5' 5 ) 09/26/2022 8:01 AM CDT Body Mass Index - - [...] Progress Notes * Yareli Fields, RD - 09/26/2022 7:30 AM CDT Outpatient Nutrition Counseling Assessment Patient Name: Maeve Ross : 2000 Sex: female Encounter Date: 09/26/2022 Time Calculation (min): 30 min Visit #: [address] Rosario to nutrition counseling for Morbid Obesity/ Bariatric Surgery Program . She has a past medical history of Anemia, Hypertension, Obesity, and Ovarian cyst. Assessment Pt is alone for nutritional counseling. Bariatric packet # 2 given today and discussed. Pt chose several vitamins, calcium, iron, protein powders to take home to try. Weight loss goal sheet was updated today with 5 more goals chosen by this patient. Bariatric support group flyer was given for tomorrow's bariatric support group meeting. Pt goes to gym at minimum 3 days week for 30-60 minutes. She walks on treadmill and ride the stationary bike. Weight is 355.7 lbs. Wt is down 5.9 lbs/ month. Pt is doing excellent !! Ongoing nutritional education is needed. Diet Recall: Breakfast: yogurt [employer]iko's Triple Zero. Beef jerky. Lunch: Boswell sandwich, carrots, quest chips, water. Dinner: Real good meal with green beans and corn. 1 pc of wheat bread Snacks: SF jello, SF popsicles. Beverages: Water Personal Goals: lose more weight Support System: family Barriers to change: none Exercise: treadmill and ride the bike -3 times/week for 30-60 minutes. Anthropometrics: Ht 165.1 cm (5' 5 ) BMI 58.38 kg/m?? IBW/kg (Calculated) : 56.7 kg. Today's weight = 355.7 lbs. Wt Readings from Last 3 Encounters: [...] or more, Patient interview, Physical finding Interventions: Encouragement, Education, nutrition, Modify diet Goals: Other (comment) (lose 1-5 lbs wt / month) Monitoring and Evaluation: Plan of care, Weight changes Recommendations: Read [...] Nutritional Needs: Total Kcal/kg Estimated Needs : 1613.44 Kcal/k Total Protein Estimated Needs (gm): 161.34 Protein Needs Based on g/k.0 Total Daily Carbohydrates Recommended (gm): 150 Total Fat Estimated Needs (gm): 35.85 Fat Needs Based on % of Calories: 20 Total Fluid Estimated Needs: 1613.44 Fluid Needs Based on : 1 ml/kcal [...] kids or lunch meals, and asking gravity meter observer for to-go box at beginning of meal. Encouraged Maeve Ross to incorporate physical activity as permitted by MD with overall goal of 150 minutes per week. Monitoring/Evaluation: Exercise Weight Evaluation of Learning: Pt Maeve Ross needs further instruction and needs review/assistance Pt is in Action stage of change. Expect adherence to recommendations to be good. Pt to follow up in October 2022 for support/reinforcement. Communication sent to referring provider with education provided and desired outcomes Yareli Fields RDN, LDN. documented in this encounter Plan of Treatment Not on file documented as of this encounter Visit Diagnoses Not on filedocumented in this encounter Care Teams Ice Maker Relationship Specialty Start Date End Date Rox Bustillo NP [address] [address] PCP - General Family Medicine 04/21/21 No, Physician 01/10/17 documented as of this encounter
--- OUTSIDE RECORDS SUMMARY | 2024-06-13 23:57 | XMS_ITS | Encounter Summary ---
Author Organization [facility] Healthcare Address [address] [place] [address] Care Team Providers Care Computer Support Technician Name Role Phone No, Physician Unavailable Rox Bustillo NP Primary Care Provider Encounter Details Date Type Department Care Team (Latest Contact Info) Description 02/28/2023 10:15 AM CDT - 02/28/2023 11:59 PM CDT Hospital Encounter [facility] Nutrition and Diabetic Education 1 [facility] [address] [place] [address] Fields, Yareli Lechuga, RD [address] [place] [address] Discharge Disposition: Discharge to home or self [...] How often do you attend sabianism or jainism serv ices? 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 Gender Identity Not on file Sexual Orientation Not on file documented as of this encounter Last Filed Vital Signs Vital Sign Reading Time Taken Comments Blood Pressure - - Pulse - - Temperature - - Respiratory Rate - - Oxygen Saturation - - Inhaled Oxygen Concentration - - Weight - - Height 165.1 cm (5' 5 ) 02/28/2023 2:16 PM CDT Body Mass Index - - [...] in this encounter Progress Notes * Yareli Fields Alexandrea, RD - 02/28/2023 10:30 AM CDT Outpatient Nutrition Counseling Assessment Patient Name: Maeve Ross : 2000 Sex: female Encounter Date: 02/28/2023 Time Calculation (min): 45 min Visit #: [address] Rosario to nutrition counseling for S/P Sleeve surgery . She has a past medical history of Anemia, Hypertension, Obesity, Ovarian cyst, and Sleep apnea. Assessment: Pt was alone for nutritional counseling. Her weight today was 307 lbs. This is a 26 lb wt loss/ in 5 weeks. Pt feels she hasn't loss enough weight, so she started overeating. We discussed drinking a variety of items to reduce chances of boredom. Pt c/o not ever feeling full. She drinks premier protein shakes, but can eat whole taco's. Discussed drinking more protein shakes, protein water with a goal of 140 grams protein/day. Pt has only been getting in about 80-90 grams/day. RDN showed patient several sites to purchase high protein concentrated foods/beverages. Discussed ways to increase protein at each meal/snack. Pt reports she is resetting for a month with drinking protein shakes/beverages only. High protein samples of shakes and drink mixes was given to this patient today. Pt to f/u in one month. Pt c/o constipation. RDN encouraged hot beverages and increase water intake. Pt to discuss constipation with Dr. Rosario. Diet Recall: Breakfast: premier protein Lunch: premier protein Dinner: premier protein Snacks:none Beverages: premier protein Personal Goals: lose more weight 1-10 lbs/month Support System: family Barriers to change: increase protein intake to 140 grams/day. Drink more water Exercise: patient walks a mile /day Anthropometrics: Ht 165.1 cm (5' 5 ) BMI 50.94 kg/m?? IBW/kg (Calculated) : 56.7 kg. Today's weight = 307 lbs. Wt Readings from Last 3 Encounters: [...] Related to: Lack of education, Lack of interest, Food choices, Lack of adherence Evidenced by: BMI 40 or more, Patient interview, Physical finding Nutritional Needs: Total Kcal/kg Estimated Needs : 1392.54 Kcal/k Total Protein Estimated Needs (gm): 139.25 Protein Needs Based on g/k.0 Total Daily Carbohydrates Recommended (gm): 135 Total Fat Estimated Needs (gm): 30.95 Fat Needs Based on % of Calories: 20 Total Fluid Estimated Needs: 1392.54 Fluid Needs Based on : 1 ml/kcal Intervention: Education given 5th visit: Following bariatric surgery Perfect Protein following bariatric surgery Decision to change assessing the costs and benefits of change Quick tips for common complaints Constipation, diarrhea, bloating and gas handout Diet stages after weight loss surgery Nutrition information for protein shake brands and flavors, nutrition info for protein powder brands Plant based protein Samples of protein shakes/beverages given. Educated and counseled pt on basics of [...] kids or lunch meals, and asking server administrator for to-go box at beginning of meal. Encouraged Maeve Ross to incorporate physical activity as permitted by MD with overall goal of 150 minutes per week. Patient Center Goals: lose more weight Increase protein to 140 grams/day. Increase water intake and hot beverages to stimulate bowels Increase walking to 1-1.5 miles/day Monitoring/Evaluation: Weekly weigh ins Take waist measurements weekly Evaluation of Learning: Pt Maeve Ross needs further instruction and needs review/assistance Pt is in Action stage of change. Expect adherence to recommendations to be good-fair. Pt to follow up in one month for support/reinforcement. Communication sent to referring provider with education provided and desired outcomes Yareli Fields RDN, LDN. documented in this encounter Plan of Treatment Not on file documented as of this encounter Visit Diagnoses Not on filedocumented in this encounter Care Teams Computer Support Technician Relationship Specialty Start Date End Date Rox Bustillo NP [address] [address] PCP - General Family Medicine 04/21/21 No, Physician 01/10/17 documented as of this encounter
--- OUTSIDE RECORDS SUMMARY | 2024-06-13 23:57 | XMS_ITS | Encounter Summary ---
Author Organization [facility] Healthcare Address [address] [place] [address] Care Team Providers Care Vice President Process Name Role Phone No, Physician Unavailable Rox Bustillo NP Primary Care Provider [phone] Encounter Details Date Type Department Care Team (Late st Contact Info) Description 01/18/2023 Documentation [facility] Warm Hand Off Program 1 [place], [place] [phone] Malena Sanz LCSW Social History Tobacco Use Types Packs/Day Years [...] week 01/18/2023 How often do you attend holiness or samaritan serv ices? 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 Pt agreed to the screening. Screening What screening methods were used? SW proceeded to engage the PHQ-2/9, MH AUDIT, and DAST-10. What were the results of the screening methods? Pt scored a 0 on PHQ2/9. PHQ 9 Scoring Scale 0-4 = None-Minimal 5-9 = Mild (watchful waiting; repeat PHQ 9 at follow-up) 10-14 = Moderate (Treatment plan, consider counseling, follow-up and/or pharmacotherapy) 15-19 = Moderately Severe (Active treatment with pharmacotherapy and/or psychotherapy) 20-27 = Severe (Immediate initiation of pharmacotherapy and, if severe impairment or poor response to therapy, expedited referral to a mental health specialist for psychotherapy and/or collaborative management) *From Matthew Teresatzer RL, Psychiatric Annals 2002;32:509-521 Pt scored a 1 on the AUDIT AUDIT Scoring Scale A score of 8 or more is associated with harmful or hazardous drinking, a score of 13 or more in women, and 15 or more in men, is likely to indicate alcohol dependence. Pt score on DAST-10 was 0, indicating no drug use. DAST Scoring Scale Scoring: Score 1 point for each question answered ???Yes,?? except for question 3 for which a ???No?? receives 1 point. Score Degree of Problems Related to Drug Abuse Suggested Action 0 No problems reported None at this time 1-2 Low level Monitor, re-assess at a later date 3-5 Moderate level Further investigation 6-8 Substantial level Intensive assessment 9-10 Severe level Intensive assessment Brief Intervention What was discussed with the patient? What stage of change are they in? What are some barriers to treatment? SW met with Pt in her room. Pt was laying in bed and appeared comfortable. Pt was pleasant, friendly and cooperative. Pt's affect and behavior were appropriate. Pt denied any hx of abuse, trauma or neglect. Pt denied any SI/HI/self-harm. Pt noted that she is not and has dependents (minor siblings she cares for). 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 Pt continued that she enjoys hobbies such as swimming and shopping. Pt confirmed that she has a good support system and people that she feels comfortable talking with if she feels down. Pt appears to be managing her mental health well. Barriers to change include - none identified at this time. Referral to Treatment What are the next steps? What is the treatment plan? When is their appointment? What resources were given? Pt's alcohol use does not seem to be problematic. SW reminded Pt of the health risks, both physicaland emotional, of using alcohol in excess and of high-risk behaviors, including but not limited to driving under the influence of alcohol or other drugs. Pt acknowledge understanding. Based on the scores of Pt's screenings, she is not a candidate for the SBIRT program. SW engaged Ptin simple alcohol education as scoring dictated and Pt appeared responsive acknowledging the information offered. Pt was encouraged to reach out to this SW or another health care provider if she everwanted or needed to talk through any difficult feelings. Pt was given SW business card and she agreed to understand. SW completed the screening tools and SO GPRA. SW will scan to [facility]. Social Determinants of Health Tobacco Use: Smoking Tobacco Use: NO Smokeless Tobacco Use: NO Passive Exposure: Not on file Alcohol Use: yes Drug Use: NO Financial Resource Strain: How hard is it for you to meet your basic needs: food, housing, medical,utilities Difficulty of Paying Living Expenses: Never Food Insecurity: In the last 12 months have you had worry that you would run out of food b/f you had enough money to buy more? Never In the last 12 months have you bought just enough food to last but ran out b/f you had the funds tobuy more? Never Transportation Needs: Unmet Transportation Needs in the last 12 months Lack of Transportation (Medical): NO Lack of Transportation (Non-Medical): NO Physical Activity: moderate Stress: moderate Social Connections: In a typical week how often to do you talk on the phone w/ family, friends, neighbors? 2x/week How often do you get together w/ family, friends, neighbors? weekly How often do you attend holiness services? never Do you belong to any groups, organization, fraternities, or clubs? NO How often do you attend meetings of these organizations/groups? never Are you , , , , never , or living w/a life partner? Never Intimate Partner Violence: No Depression: Not at risk PHQ-2 Score: 0 Housing Stability: in the last 12 months was there a time when you were not able to pay your rent or mortgage? Never In the past 12 months have you had to sleep outdoors in a care home or otherwise NOT had a safe placeto sleep/care home? Never documented in this encounter Plan of Treatment Not on file documented as of this encounter Visit Diagnoses Not on filedocumented in this encounter Care Teams Vice President Process Relationship Specialty Start Date End Date Rox Bustillo NP [address] [address] PCP - General Family Medicine 04/21/21 No, Physician 01/10/17 documented as of this encounter
--- OUTSIDE RECORDS SUMMARY | 2024-06-13 23:57 | XMS_ITS | Encounter Summary ---
Author Organization [facility] Medical Group Address [address] [place] [address] Care Team Providers Care Lift Manager Name Role Phone No, Physician Unavailable Rox Bustillo NP Primary Care Provider [phone] Encounter Details Date Type Department Care Team (Late st Contact Info) Description 07/20/2022 8:40 AM EVENTS SPECIALIST Office Visit [facility] [address] [facility] [address] [place] [address] Nayan Rosario MD 4 [facility] [address] [place] [address] BMI 45.0-49.9, adult (CMS/HCC) (HCC) (Primary Dx) [...] on file 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 Gender Identity Not on file Sexual Orientation Not on file documented as of this encounter Last Filed Vital Signs Vital Sign Reading Time Taken Comments Blood Pressure 143/84 07/20/2022 8:32 AM EVENTS SPECIALIST Pulse 97 07/20/2022 8:32 AM EVENTS SPECIALIST Temperature 36.3 ??C (97.3 ??F) 07/20/2022 8:32 AM CS T Respiratory Rate - - Oxygen Saturation 96% 07/20/2022 8:32 AM EVENTS SPECIALIST Inhaled Oxygen Concentration - - Weight 163.9 kg (361 lb 6.4 oz) 07/20/2022 8:32 AM EVENTS SPECIALIST Height 165.1 cm (5' 5 ) 07/20/2022 8:32 AM EVENTS SPECIALIST Body Mass Index 60.14 07/20/2022 8:32 AM EVENTS SPECIALIST documented in this encounter Progress Notes * Nayan Rosario MD - 07/20/2022 8:40 AM CST Images from the original note were not included. Surgery Consult Subjective: Patient Name: Maeve Ross Date of Visit: 07/20/22 HPI: Maeve Ross is a 22 y.o. female presenting for [...] disintegrating tablet traMADol (ULTRAM) 50 mg tablet Past Medical History: Diagnosis Date Anemia Hypertension Obesity Ovarian cyst Past Surgical History: Procedure Laterality Date CHOLECYSTECTOMY [...] orders for this visit: BMI 45.0-49.9, adult (CMS/[facility]) ([facility]) (Primary) Assessment & Plan: Given their past [...] psych. As we get closer to the ti me of surgery we will set him up [...] exercise with regards to her morbid obesity. Nayan Rosario MD 8:52 AM 07/20/2022 TS SPECIALIST documented in this encounter Miscellaneous Notes * Assessment & Plan Note - Nayan Rosario MD - 07/20/2022 8:52 AM CSTAssociated Problem(s): BMI 45.0-49.9, adult (HCC) Given their past success the patient would [...] psych. As we get closer to the ti me of surgery we will set him up [...] exercise with regards to her morbid obesity. TS SPECIALIST documented in this encounter Plan of Treatment Not on file documented as of this encounter Visit Diagnoses Diagnosis BMI 45.0-49.9, adult (HCC)- Primary documented in this encounter Historical Medications * This list may reflect changes made after this encounter. metoprolol XL (TOPROL-XL) 25 mg extended release tablet Take 1 tablet (25 mg total) by mouth daily 05/15/2022 medroxyPROGESTERo ne (PROVERA) 10 mg tablet 07/05/2022 added in this encounter Care Teams Lift Manager Relationship Specialty Start Date End Date Rox Bustillo NP [address] [address] PCP - General Family Medicine 04/21/21 No, Physician 01/10/17 documented as of this encounter
--- OUTSIDE RECORDS SUMMARY | 2024-06-13 23:58 | XMS_ITS | Encounter Summary ---
Author Organization [facility] Address [address] [place] [address] Care Team Providers Care Children'S Service Worker Name Role Phone No, Physician Unavailable No, Physician Primary Care Provider [phone] Encounter Details Date Type Department Care Team (Late st Contact Info) Description 04/09/[address] 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 Please call [phone] Thank you ING SPECIALIST documented in this encounter Plan of Treatment Not on file documented as of this encounter Visit Diagnoses Not on filedocumented in this encounter Care Teams Children'S Service Worker Relationship Specialty Start Date End Date No, Physician PCP - General 12/26/17 04/23/20 No, Physician 01/10/17 documented as of this encounter
--- OUTSIDE RECORDS SUMMARY | 2024-06-13 23:58 | XMS_ITS | Encounter Summary ---
Author Organization [facility] Care Team Providers Care Internet Technology Manager Name Role Phone No, Physician Unavailable No, Physician Primary Care Provider [phone] Encounter Details Date Type Department Care Team (Latest Contact Info) Description 04/09/2019 Travel Social History Tobacco Use Types Packs/Day Years Used Date Smoking Tobacco: Never Smokeless Tobacco: Never Alcohol Use Standard Drinks/Week Comments No 0 (1 standard drink = 0.6 oz pur e alcohol) Comments No Sex and Gender Information Value Date Recorded Sex Assigned at Not on file 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
--- OUTSIDE RECORDS SUMMARY | 2024-06-13 23:58 | XMS_ITS | Encounter Summary ---
Author Organization [facility] Healthcare Address [address] [place] [address] Care Team Providers Care Furrier Shop Supervisor Name Role Phone No, Physician Unavailable Damian Verde NP Primary Care Provider [phone] Reason for Visit * Reason Comments Pelvic Pain Encounter Details Date Type Department Care Team ([facility] Contact Info) Description 04/24/2020 9:46 AM CLAIMS EXAMINER - 04/24/2020 12:38 PM CLAIMS EXAMINER Emergency [facility] Emergency Department [address] [place] [address] Lauren Fields MD [address] [place] [address] Abdominal pain (Primary Dx) Discharge Disposition: Discharge to home or self care Social History Tobacco Use Types Packs/Day Years Used Date Smoking Tobacco: Never Smokeless Tobacco: Never Alcohol Use Standard Drinks/Week Comments Yes 0 (1 standard drink = 0.6 oz pur e alcohol) occasional Comments No Sex and Gender Information Value Date Recorded Sex Assigned at Not on file Legal Sex Female 8:56 PM CLAIMS EXAMINER Gender Identity Not on file Sexual Orientation Not on file documented as of this encounter Last Filed Vital Signs Vital Sign Reading Time Taken Comments Blood Pressure 138/65 04/24/2020 12:38 PM CLAIMS EXAMINER Pulse 80 04/24/2020 12:38 PM CLAIMS EXAMINER Temperature 36.9 ??C (98.5 ??F) 04/24/2020 9:43 AM CS T Respiratory Rate 18 04/24/2020 12:38 PM CLAIMS EXAMINER Oxygen Saturation 98% 04/24/2020 12:38 PM CLAIMS EXAMINER Inhaled Oxygen Concentration - - Weight 131.5 kg (290 lb) 04/24/2020 9:43 AM CLAIMS EXAMINER Height 162.6 cm (5' 4 ) 04/24/2020 9:43 AM CLAIMS EXAMINER Body Mass Index 49.78 04/24/2020 9:43 AM CLAIMS EXAMINER documented in this encounter Discharge Diagnoses Diagnosis Unspecified abdominal pain - UNSPECIFIED ABDOMINAL PAIN Essential (primary) hypertension - ESSENTIAL (PRIMARY) HYPERTENSION Unspecified essential hypertension Morbid (severe) obesity due to excess calories (HCC) - MORBID (SEVERE) OBESITY DUE TO EXCESS CALORIES Body mass index (BMI) 45.0-49.9, adult (HCC) - BODY MASS INDEX [BMI] 45.0-49.9, ADULT Acquired absence of other specified parts of digestive tract - ACQUIRED ABSENCE OF OTHER SPECIFIED PARTS OF DIGESTIVE TRACT documented in this encounter Discharge Instructions * Discharge Instructions* Lauren Fields MD - 04/24/2020 12:21 PM CLAIMS EXAMINER Abdominal pain could be due to ruptured ovarian cyst, ovarian torsion and large cysts ruled out. Discussed pain management over the weekend as well as contacting sizing machine and drier operator 1st thing on Sunday. Recommended returning to the ER for worsening pain fevers chills nausea or vomiting. MS EXAMINER * Attachments The following attachments cannot be sent through Care Everywhere. * Pain, Acute, Uncertain Cause (Georgian) documented in this encounter Medications at Time of Discharge triamterene-hydroCHL OROthiazide 37.5-25 mg per tablet TK 1 T PO QD 01/14/2020 clonazePAM (KlonoPIN) 0.25 mg disintegrating tablet Take 1 tablet by mouth 2 (two) times a day 0 09/10/2018 3 ibuprofen (ADVIL,MOTRIN) 800 mg tabletIndications:Pa in Take 1 tablet (800 mg total) by mouth 3 (three) times a day 21 tablet 04/24/2020 3 metoclopramide (REGLAN) 10 mg tablet Take 1 tablet q6-8 hrs for naueas, take with 25 mg benadryl 15 tablet 09/25/2018 3 traMADol (ULTRAM) 50 mg tablet Take 1-2 tablets (50-100 mg total) by mouth every 6 (six) hours as needed for pain (1 tablet for mild to moderate pain or 2 tablets for severe pain) 20 tablet 09/25/2018 3 documented as of this encounter Ordered Prescriptions Prescription Sig Dispense Quantity Refills Last Filled Start Date End Date ibuprofen (ADVIL,MOTRIN) 800 mg tabletIndications: Pain Take 1 tablet (800 mg total) by mouth 3 (three) times a day 21 tablet 04/24/2020 11/14/2022 documented in this encounter Discharge Disposition Disposition Code Departure Means Destination Discharge to home or self care documented in this encounter ED Notes * Lauren Fields MD - 04/24/2020 10:41 AM CST HPI Chief Complaint Patient presents with ??? Pelvic Pain Summer is a 20-year-old female, nonsmoker , with a past medical history, anemia ovarian cyst that was surgically removed, as well as irregular menstrual periods and hypertension who comes to the ER today for lower abdominal pain. The patient notes her pain started 3-4 days ago, she denies fevers orchills any nausea or vomiting, denies urinary frequency denies hematuria, patient has not had any constipation or diarrhea. Patient denies blood in the stool or black stools. She has had an abnormal menstrual period has been bleeding for about a month her bleeding stopped a few days ago and then started 2 or 3 days ago again. She has no history of uterine fibroids. She does have a history of a 10cm ovarian cyst that was surgically removed. She also has a history of cholecystectomy. No other abdominal surgeries. Patient denies vaginal discharge. She is sexually active and uses condoms for control. She has no other GI history otherwise. And no other complaints at this time Patient History: Patient Active Problem List Diagnosis Date Noted ??? Achilles tendinitis of right lower extremity 03/09/2020 ??? Cervicitis 04/09/2019 ??? Biliary dyskinesia 05/17/2017 ??? BMI 45.0-49.9, adult ([facility]) 05/17/2017 ??? Epigastric pain 05/17/2017 Past Medical [...] Yes Comment: occasional ??? Drug use: No Social History Social History Narrative ??? Not on file Review of Systems Review of Systems Constitutional: Negative. Negative for activity change, appetite change, chills, diaphoresis, fatigue, fever and unexpected weight change. HENT: Negative. Negative for congestion, facial swelling, nosebleeds, rhinorrhea and sore throat. Eyes: Negative. Negative for photophobia, discharge, redness and visual disturbance. Respiratory: Negative. Negative for apnea, cough, chest tightness, shortness of breath and wheezing. Cardiovascular: Negative. Negative for chest pain, palpitations and leg swelling. Gastrointestinal: Positive for abdominal pain (Predominantly lower abdomen). Negative for abdominaldistention, anal bleeding, blood in stool, constipation, diarrhea, nausea, rectal pain and vomiting. Endocrine: Negative. Negative for cold intolerance, heat intolerance, polydipsia, polyphagia and polyuria. Genitourinary: Positive for vaginal bleeding ( currently bleeding irregular periods). Negative for decreased urine volume, difficulty urinating, dysuria, flank pain, frequency, hematuria and urgency. Musculoskeletal: Negative. Negative for arthralgias, back pain, gait problem, joint swelling, myalgias, neck pain and neck stiffness. Skin: Negative. Negative for color change, pallor, rash and wound. Allergic/Immunologic: Negative for immunocompromised state. Neurological: Negative. Negative for dizziness, tremors, seizures, syncope, facial asymmetry, speech difficulty, weakness, light-headedness, numbness and headaches. Hematological: Negative. Does not bruise/bleed easily. Psychiatric/Behavioral: Negative. Negative for agitation, behavioral problems and confusion. All other systems reviewed and are negative. Physical Exam ED Triage Vitals Temp Pulse Resp BP SpO2 04/24/20 0943 04/24/20 1005 04/24/20 0943 04/24/20 0943 04/24/20 0943 36.9 ??C (98.5 ??F) 89 20 135/88 100 % Temp src Heart Rate Source Patient Position BP Location FiO2 (%) 04/24/20 0943 -- -- -- -- Temporal Physical Exam Vitals signs and nursing note reviewed. Constitutional: General: She is not in acute distress. Appearance: She is well-developed. She is obese. She is not ill-appearing, toxic-appearing or diaphoretic. Comments: Morbidly obese HENT: Head: Normocephalic and atraumatic. Eyes: Extraocular Movements: Extraocular movements intact. Conjunctiva/sclera: Conjunctivae normal. Pupils: Pupils are equal, round, and reactive to light. Neck: Musculoskeletal: Normal range of motion and neck supple. Thyroid: No thyromegaly. Vascular: No JVD. Trachea: No tracheal deviation. Cardiovascular: Rate and Rhythm: Normal rate. Heart sounds: Normal heart sounds. Pulmonary: Effort: Pulmonary effort is normal. No respiratory distress. Breath sounds: No stridor. Abdominal: General: Bowel sounds are normal. There is no distension. Palpations: Abdomen is soft. There is no mass. Tenderness: There is abdominal tenderness (Diffuse abdominal tenderness tenderness worse over the lower abdomen no guarding.). There is no right CVA tenderness, left CVA tenderness, guarding or rebound. Hernia: No hernia is present. Musculoskeletal: Normal range of motion. General: No tenderness or deformity. Skin: General: Skin is warm and dry. Capillary Refill: Capillary refill takes less than 2 seconds. Coloration: Skin is not pale. Findings: No erythema or rash. Neurological: General: No focal deficit present. Mental Status: She is alert and oriented to person, place, and time. Mental status is at baseline. Motor: No abnormal muscle tone. Psychiatric: Behavior: Behavior normal. Thought Content: Thought content normal. [facility] 12:15 PM discussed test results as well as differential diagnosis with the patient. I told her since she is currently on her. Her urinalysis is not the most accurate accurate but her blood work and her urine do not show a significant infection. I told her she most likely has abdominal pain either due to her vaginal bleeding or a ruptured ovarian cyst. I told her there are no large ovarian cysts and no ovarian torsion. Uterus looks within normal limits. Recommended follow-up with OBGYN on Sunday. Told her to return to the ER for worsening symptoms fevers chills nausea vomiting worsening pain. Recommended pain management with anti-inflammatories over the weekend. Patient agrees with disposition and treatment. DISPOSITION:DISCHARGED Final diagnoses: Abdominal pain Lauren Fields MD 04/24/20 1225 MS EXAMINER * Malena Ortiz RN - 04/24/2020 9:41 AM CST Pt to triage c/o pelvic pain x few days. Pt states pain getting worse. Pt states hx ovarian cysts. Pt states feels like a bowling ball between my legs . LMP today. Pt states periods very irregular. MS EXAMINER documented in this encounter Plan of Treatment Not on file documented as of this encounter Procedures Procedure Name Priority Date/Time Associated Diagnosis Comments US PELVIS W ENDOVAGINAL ED 04/24/2020 11:27 AM CLAIMS EXAMINER EGFR STAT 04/24/2020 10:54 AM CLAIMS EXAMINER DIFFERENTIAL AUTO STAT 04/24/2020 10: 54 AM CLAIMS EXAMINER CBC WITH AUTO DIFFERENTIAL STAT 04/24/2020 10:54 AM CLAIMS EXAMINER HCG, BLOOD, QUANTITATIVE STAT 04/24/2020 10:54 AM CLAIMS EXAMINER COMPREHENSIVE METABOLIC PANEL STAT 04/24/2020 10:54 AM CLAIMS EXAMINER URINALYSIS AND REFLEX TO MICROSCOPIC AND CULTURE STAT 04/24/2020 10:08 AM CLAIMS EXAMINER HCG, URINE, QUALITATIVE STAT 04/24/2020 10:08 AM CLAIMS EXAMINER URINALYSIS, MICROSCOPIC ONLY STAT 04/24/2020 10:08 AM CLAIMS EXAMINER documented in this encounter Results * US Pelvis W Endovaginal (04/24/2020 11:27 AM CLAIMS EXAMINER) Anatomical Region Laterality Modality Pelvis N/A Ultrasound 04/24/2020 11:0 6 AM CLAIMS EXAMINER Impressions 04/24/2020 11:49 AM CLAIMS EXAMINER ?? No acute abnormality. THIS IS AN ELECTRONICALLY VERIFIED FINAL REPORT 04/24/2020 11:45 AM - Electronically signed by Gerald Barksdale M.D. JA: ARTEM D: ??04/24/2020 11:45 AM T: ??04/24/2020 11:45 AM Report ID: [id number] Reading Location: ??[id number] Narrative 04/24/2020 11:49 AM CLAIMS EXAMINER [facility] ?Imaging Result Name: BAILEE ROSS Abhay ? Ordering Phys: LAUREN FIELDS Age: 20 ?Date of : 2000 ? Accession Number: [id number] Date of Service: 04/24/2020 ??Gender: F EXAM DESCRIPTION: ?? US PELVIS W ENDOVAGINAL REASON FOR STUDY: ?? Pelvic pain for 2 days. ??History of ovarian cyst. Evaluate for variant torsion. TECHNIQUE: ??Ultrasound of the pelvic contents was performed with transabdominal and transvaginal transducer. ??Grayscale and color doppler techniques were utilized. COMPARISON: ?? CT dated September 25, 2018 ??UTERUS: ??The uterus is anteverted. The uterus is ??homogenous in echotexture and measures ??8.5 x 4.2 x 4.9 cm. ??Several nabothian cysts are seen. ENDOMETRIUM: The endometrium measures ??1.1 cm in thickness. RIGHT OVARY: The right ovary measures ??3.6 x 1.7 x 1.8 cm. ??There is documentation of color Doppler flow in the right ovary. The right ovary appears unremarkable. ??Note is made of multiple follicles, the largest measuring 1.5 cm. LEFT OVARY: The left ovary measures ??5.7 x 3.7 x 3.3 cm. ??There is documentation of color Doppler flow in the left ovary. ??The left ovary appears unremarkable. ??Note is made of multiple follicles the largest measuring 2.8 cm. PELVIC FLUID: ??Trace free fluid in the pelvis. OTHER: ??No other significant findings. Procedure Note Gerald Barksdale MD - 04/24/2020 [facility] Imaging Result Name: FILIBERTO BAILEE Blank Ordering Phys: LAUREN FIELDS Age: 20 Date of : 2000 Accession Number: [id number] Date of Service: 04/24/2020 Gender: F EXAM DESCRIPTION: US PELVIS W ENDOVAGINAL REASON FOR STUDY: Pelvic pain for 2 days. History of ovarian cyst. Evaluate for variant torsion. TECHNIQUE: Ultrasound of the pelvic contents was performed with transabdominal and transvaginal transducer. Grayscale and color doppler techniques were utilized. COMPARISON: CT dated September 25, 2018 UTERUS: The uterus is anteverted. The uterus is homogenous in echotexture and measures 8.5 x 4.2 x 4.9 cm. Several nabothian cystsare seen. ENDOMETRIUM: The endometrium measures 1.1 cm in thickness. RIGHT OVARY: The right ovary measures 3.6 x 1.7 x 1.8 cm. There is documentation of color Doppler flow in the right ovary. The right ovary appears unremarkable. Note is made of multiple follicles, the largest measuring 1.5 cm. LEFT OVARY: The left ovary measures 5.7 x 3.7 x 3.3 cm. There is documentation of color Doppler flow in the left ovary. The left ovaryappears unremarkable. Note is made of multiple follicles the largest measuring2.8 cm. PELVIC FLUID: Trace free fluid in the pelvis. OTHER: No other significant findings. IMPRESSION: No acute abnormality. THIS IS AN ELECTRONICALLY VERIFIED FINAL REPORT 04/24/2020 11:45 AM - Electronically signed by Gerald Barksdale M.D. JA: ARTEM Report ID: [id number] Reading Location: [email or web address].[email or web address].NET Lauren Fields MD IM US PROCEDURES F inal Result * eGFR (04/24/2020 10:54 AM CLAIMS EXAMINER) eGFR 110 mL/min/1.7 3 m2 [facility] ([place]) Comment: Interpretive Data Reference Interval Normal ?>/= 90 mL/min/1.73m2 Mildly decreased* ? 60 - 89 mL/min/1.73m2 Mildly to moderately decreased ?45 - 59 mL/min/1.73m2 Moderately to severely decreased ??30 - 44 mL/min/1.73m2 Severely decreased ?15 - 29 mL/min/1.73m2 Kidney Failure ?< 15 ??mL/min/1.73m2 *Relative to young adult level If -Maldivian multiply value by 1.16. Estimated glomerular filtration rate is determined by [...] 70. Current interpretive data was last reviewed 2015. Blood specimen (specimen) 04/24/2020 10:54 AM CLAIMS EXAMINER 04/24/2020 10:59 AM CLAIMS EXAMINER Lauren Fields MD LAB BLOOD ORDERABLE S Final Result [facility] ([place]) 1 [facility] Department [place] [address] * Differential, auto (04/24/2020 10:54 AM CLAIMS EXAMINER) Neutrophil abs 6.1 1.7 - 6.5 K/cumm [facility] ([place]) Imm gran abs 0.0 0.0 - 0.1 K/cumm [facility] ([place]) Lymphocyte abs 2.0 0.8 - 3.3 K/cumm [facility] ([place]) Monocyte abs 0.4 0.2 - 0.8 K/cumm [facility] ([place]) Eosinophil abs 0.1 0.0 - 0.5 K/cumm [facility] ([place]) Basophil abs 0.0 0.0 - 0.1 K/cumm [facility] ([place]) Neutrophil pct 70.9 % [facility] ([place]) Comment: Interpretive [...] was last revised on 2017. Lymphocyte pct 22.8 % [facility] ([place]) Comment: Interpretive Data Percent cell count reference ranges are not reported, since discordance with absolute values may lead to misinterpretation of CBC data. Current Interpretive Data was last revised on 2017. Monocyte pct 4.7 % [facility] ([place]) Comment: Interpretive Data [...] was last revised on 2017. Basophil pct 0.4 % [facility] ([place]) Comment: Interpretive Data Percent cell count reference ranges are not reported, since discordance with absolute values may lead to misinterpretation of CBC data. Current Interpretive Data was last revised on 2017. Blood specimen (specimen) 04/24/2020 10:54 AM CLAIMS EXAMINER 04/24/2020 10:59 AM CLAIMS EXAMINER Lauren Fields MD LAB BLOOD ORDERABLE S Final Result Performing Organization Address [facility] de Phone Number [facility] ([place]) 1 [facility] [place] [address] * hCG, blood, quantitative (04/24/2020 10:54 AM CLAIMS EXAMINER) hCG, quant <5.0 0.0 - 5.0 IUnits/L [facility] ([place]) Comment: Interpretive Data Non- Female premenopausal: < or = 5.0 IUnits/L Men: < 5.0 IUnits/L Weeks of Gestation ? Reference Interval ?? 3 to 6 ? 5.8-31,795 IUnits/L ?? 7 to 10 ? 3,697-186,977 IUnits/L ??12 to 15 ?27,832- 70,791 IUnits/L ??16 to 18 ? 9,040- 58,179 IUnits/L Current Interpretive Data was last revised on 2018. Blood specimen (specimen) 04/24/2020 10:54 AM CLAIMS EXAMINER 04/24/2020 10:59 AM CLAIMS EXAMINER Lauren Fields MD LAB BLOOD ORDERABLE S Final Result Performing Organization Address City/[facility]/ZIP Co de Phone Number [facility] ([place]) [address] [facility] [place] [address] * (ABNORMAL) Comprehensive metabolic panel (04/24/2020 10:54 AM CLAIMS EXAMINER) Sodium 132(L) 135 - 145 mmol/L [facility] ([place]) Potassium, pl 3.9 3.3 - 4.9 mmol/L [facility] ([place]) Chloride 99 97 - 110 mmol/L [facility] ([place]) CO2 26 22 - 32 mmol/L [facility] ([place]) Anion gap 7 2 - 15 mmol/L [facility] ([place]) BUN 13 8 - 25 mg/dL [facility] ([place]) Creatinine 0.77 0.60 - 1.10 mg/dL [facility] ([place]) Glucose 131 70 - 199 mg/dL [facility] ([place]) [...] interpretive data was last revised 2017. Calcium 8.4(L) 8.5 - 10.3 mg/dL [facility] ([place]) Bilirubin, total <0.2 0.1 - 1.2 mg/dL [facility] ([place]) Protein, pl 6.4(L) 6.5 - 8.5 g/dL [facility] ([place]) Albumin 3.3(L) 3.5 - 5.0 g/dL [facility] ([place]) Alk phos 95 40 - 130 Units/L [facility] ([place]) ALT 16 7 - 45 Units/L [facility] ([place]) AST 15 10 - 45 Units/L [facility] ([place]) Blood specimen (specimen) 04/24/2020 10:54 AM CLAIMS EXAMINER 04/24/2020 10:59 AM CLAIMS EXAMINER us Lauren Fields MD LAB BLOOD ORDERABLE S Final Result [facility] ([place]) 1 [facility] [place] [address] * (ABNORMAL) CBC with auto differential (04/24/2020 10:54 AM CLAIMS EXAMINER) WBC 8.5 3.8 - 9.9 K/cumm [facility] ([place]) Hgb 11.6(L) 11.9 - 15.5 g/dL [facility] ([place]) Hct 38.1 35.6 - 45.5 % [facility] ([place]) Plt 286 150 - 400 K/cumm [facility] ([place]) MPV 11.4 9.1 - 12.3 fL [facility] ([place]) RBC 4.77 3.90 - 5.20 M/cumm [facility] ([place]) MCV 79.9(L) 81.3 - 96.4 fL [facility] ([place]) MCH 24.3(L) 27.1 - 33.3 pg [facility] ([place]) MCHC 30.4(L) 32.3 - 35.7 g/dL [facility] ([place]) RDW CV 15.3(H) 11.1 - 14.9 % [facility] ([place]) RDW SD 43.8 35.7 - 48.1 fL [facility] ([place]) NRBC abs 0.00 0.00 - 0.01 K/cumm [facility] ([place]) Blood specimen (specimen) 04/24/2020 10:54 AM CLAIMS EXAMINER 04/24/2020 10:59 AM CLAIMS EXAMINER us Lauren Fields MD LAB BLOOD ORDERABLE S Final Result [facility] ([place]) 1 [facility] Department [place] [address] * (ABNORMAL) Urinalysis, microscopic only (04/24/2020 10:08 AM CLAIMS EXAMINER) WBC, ur 0-5 0 - 5 /HPF [facility] ([place]) RBC, ur >50(A) 0 - 2 /HPF [facility] ([place]) Epithelial cells, squamous, ur 6-10(A) 0 - 5 /HPF [facility] ([place]) Bacteria, ur 1+(A) [facility] ([place]) Mucous, ur Present(A) [facility] ([place]) Hyaline casts, ur 1-5 0 - 10 /LPF [facility] ([place]) Culture Reflex Comment Reflex conditions for urine culture (WBC >10) not met. [facility] ([place]) Urine 04/24/2020 10:0 8 AM CLAIMS EXAMINER 04/24/2020 10:13 AM CLAIMS EXAMINER us Angela Morley MD LAB URINE ORDERABLES Fin al Result [facility] 1 [facility] [place] [address] * (ABNORMAL) Urinalysis reflex to microscopic and culture Urine (04/24/2020 10:08 AM CLAIMS EXAMINER) Color, ur Yellow Yellow [facility] ([place]) Clarity, ur Turbid(A) Clear [facility] ([place]) Specific gravity, ur 1.024 1.010 - 1.025 [facility] ([place]) pH, urine 6.5 [facility] ([place]) Protein, ur ql 1+(A) Negative [facility] ([place]) Glucose, ur ql Negative Negative [facility] ([place]) Ketones, ur Trace Negative [facility] ([place]) Bilirubin, ur Negative Negative [facility] ([place]) Blood, ur 3+(A) Negative [facility] ([place]) Urobilinogen, ur <2.0 <2.0 mg/dL [facility] ([place]) Nitrite, ur Negative Negative [facility] ([place]) Leukocyte esterase, ur Negative Negative [facility] ([place]) UA reflex comment Reflex to microscopic UA will be performed. [facility] ([place]) Urine 04/24/2020 10:0 8 AM CLAIMS EXAMINER 04/24/2020 10:13 AM CLAIMS EXAMINER Narrative [facility] ([place]) - 04/24/2020 10:17 AM CLAIMS EXAMINER ?? Urine pH is affected by diet, medications, systemic acid-base disturbances, and renal tubular function. ??pH may affect urinary stone formation. ??For example, urine pH below 6.0 may help reduce the tendency for calcium phosphate stones and pH greater than 6.0 may reduce the tendency for uric acid stone formation. Source: [facility] [address] [place]. Last revised 06-14-2017 Angela Morley MD LAB MICROBIOLOGY - GENER AL ORDERABLES Final Result Performing Organization Address City/[facility]/ZIP Co de Phone Number [facility] ([place]) [address] [place] [address] * hCG, urine, qualitative (04/24/2020 10:08 AM CLAIMS EXAMINER) HCG, ur Negative Negative [facility] ([place]) Urine 04/24/2020 10:0 8 AM CLAIMS EXAMINER 04/24/2020 10:13 AM CLAIMS EXAMINER Angela Morley MD LAB URINE ORDERABLES Fin al Result Performing Organization Address [facility] Co de Phone Number [facility] ([place]) [address] [facility] [place] [address] documented in this encounter Visit Diagnoses Diagnosis Abdominal pain- Primary Abdominal pain, unspecified site documented in this encounter Administered Medications Inactive Administered Medications - up to 3 most recent administrations Medication Order MAR Action Action Date Dose Rate Site ketorolac (TORADOL) 15 mg/mL injection 15 mg 15 mg, intravenous, Once, On 04/24/20 at 1019, For 1 dose, For Adult IV push, administer over 15 seconds Given 04/24/2020 10:39 AM CLAIMS EXAMINER 15 mg ondansetron (ZOFRAN) injection 4 mg 4 mg, intravenous, Administer over 2 Minutes, Once, On 04/24/20 at 1019, For 1 dose, Indications: Nausea and VomitingIndications:Nausea and Vomiting Given 04/24/2020 10:37 AM CLAIMS EXAMINER 4 mg documented in this encounter Discontinued Medications Medication Sig Discontinue Reason Start Date End Da te ibuprofen (ADVIL,MOTRIN) 600 mg tablet Take 1 tablet (600 mg total) by mouth 3 (three) times a day Take with food. 09/25/2018 04/24/2020 documented as of this encounter Active and Recently Administered Medications Times are shown in CLAIMS EXAMINER. Scheduled Medication Order 04/22/2020 04/23/2020 04/24/2020 ketorolac (TORADOL) 15 mg/mL injection 15 mg (COMPLETED) 15 mg, intravenous, Once, On 04/24/20 at 1019, For 1 dose, For Adult IV push, administer over 15 seconds 1039 (Given - Provid er: Kajal Braswell, EBEN) ondansetron (ZOFRAN) injection 4 mg (COMPLETED) 4 mg, intravenous, Administer over 2 Minutes, Once, On 04/24/20 at 1019, For 1 dose, Indications: Nausea and Vomiting 1037 (Given - Provid er: Kajal Braswell, EBEN) documented in this encounter Care Teams Furrier Shop Supervisor Relationship Specialty Start Date End Date Damian Verde NP [address] [place] [address] PCP - General 04/24/20 04/20/21 No, Physician 01/10/17 documented as of this encounter
--- OUTSIDE RECORDS SUMMARY | 2024-06-13 23:58 | XMS_ITS | Encounter Summary ---
Author Organization [facility] Address [address] [place] [address] Care Team Providers Care Precast Concrete Products Installer Name Role Phone No, Physician Unavailable No, Physician Primary Care Provider [phone] Reason for Visit * Reason Onset Date Comments Brace question 03/12/2020 Encounter Details Date Type Department Care Team (Late st Contact Info) Description 03/12/2020 Telephone [facility] Orthopedics and Sports Medicine [address] [place] [address] [address] [place] [address] Josephine Galvin MA Brace question Social History Tobacco Use Types Packs/Day Years Used Date Smoking Tobacco: Never Smokeless Tobacco: Never Alcohol Use Standard Drinks/Week Comments No 0 (1 standard drink = 0.6 oz pur e alcohol) Comments No Sex and Gender Information Value Date Recorded Sex Assigned at Not on file 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 She stated that she will be able to come to the office on Sunday to be fit for brace. * Telephone Encounter - Josephine Galvin MA - 03/12/2020 9:59 AM CDT Called and left message for patient to call back regarding Trilock brace. She needs to be fit with a brace. documented in this encounter Plan of Treatment Not on file documented as of this encounter Visit Diagnoses Not on filedocumented in this encounter Care Teams Precast Concrete Products Installer Relationship Specialty Start Date End Date No, Physician PCP - General 12/26/17 04/23/20 No, Physician 01/10/17 documented as of this encounter
--- OUTSIDE RECORDS SUMMARY | 2024-06-13 23:58 | XMS_ITS | Encounter Summary ---
Author Organization [facility] Address [address] [place] [address] Care Team Providers Care Heel Sander Rubber Name Role Phone No, Physician Unavailable No, Physician Primary Care Provider [phone] Encounter Details Date Type Department Care Team (Late st Contact Info) Description 03/09/2020 11:00 AM CDT Office Visit [facility] Orthopedics and Sports Medicine [address] [place] [id number] Latisha Bermudez PA [address] [place] [address] Achilles tendinitis of right lower extremity (Primary Dx) Social History Tobacco Use Types Packs/Day Years Used Date Smoking Tobacco: Never Smokeless Tobacco: Never Alcohol Use Standard Drinks/Week Comments No 0 (1 standard drink = 0.6 oz pur e alcohol) Comments No Sex and Gender Information Value Date Recorded Sex Assigned at Not on file 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 Gender Identity Not on file Sexual Orientation Not on file documented as of this encounter Last Filed Vital Signs Vital Sign Reading Time Taken Comments Blood Pressure 135/82 03/09/2020 10:51 AM CDT Pulse 98 03/09/2020 10:51 AM CDT Temperature 36.2 ??C (97.1 ??F) 03/09/2020 1 0:51 AM CDT Respiratory Rate - - Oxygen Saturation - - Inhaled Oxygen Concentration - - Weight 149.6 kg (329 lb 12.8 oz) 2019 10:51 AM CDT Height 165.1 cm (5' 5 ) 03/09/2020 10:5 1 AM CDT Body Mass Index 54.88 03/09/2020 10:51 AM CDT documented in this encounter Progress Notes * Latisha Bermudez PA - 03/09/2020 11:00 AM CDT Images from the original note were not included. This patient has been reviewed and COVID-19 risk has been assessed. Based on our clinical judgement, we find it appropriate to see this patient in clinic today. Our staff performed proper precautionsand wore appropriate PPE when caring for this patient in office today. Both myself and the patient wore a mask throughout the visit. The patient understands current COVID-19 risks and wished to be seen today. NEW PATIENT VISIT Subjective CHIEF COMPLAINT She had no chief complaint listed for this encounter. HISTORY OF PRESENT ILLINESS Ms Ross is a pleasant 20-year-old female who presents to clinic with the complaint of right ankle pain. She localizes the pain to the posterior aspect of her ankle, where the Achilles tendon and describes it as sharp, rating at a 2/10. Of note, she fell at work a couple of weeks ago, following which she presented to [facility], where x-rays were taken and revealed no acute osseous abnormality. She was diagnosed with a lateral ankle sprain and instructed to follow up as needed. However, shepresented to the emergency department a few days later with worsening pain and was instructed to follow up with Orthopedics. Today she reports that the pain over the anterior and lateral aspect of her ankles following the fall has essentially resolved. She discontinued her brace a couple of days ago for this reason. Since that time, she has developed discomfort over her Achilles tendon, which occurs a few times an hour while ambulating. She denies any additional trauma or other complaints at this time. Pain Assessment Pain Assessment: 0-10 Pain Score: 2 PAST MEDICAL HISTORY She has a past medical history of Anemia and Obesity. PAST SURGICAL HISTORY She has a past surgical history that includes Other surgical history; Other surgical history; and Cholecystectomy. MEDICATIONS She has a current medication list which includes the following prescription(s): clonazepam, ibuprofen, metoclopramide, tramadol, and triamterene-hydrochlorothiazide. ALLERGIES She is allergic to penicillins. SOCIAL HISTORY She reports that she has never smoked. She has never used smokeless tobacco. She reports that she does not drink alcohol or use drugs. FAMILY HISTORY Family History Problem Relation Age of Onset ??? Anemia Mother ??? Cancer Father ??? Bladder Cancer Father ??? Heart disease Father ??? Stroke Father ??? Diabetes Father ??? Multiple sclerosis Father's Sister ??? Hearing loss Maternal Grandfather ??? Stroke Paternal Grandmother ??? Diabetes Paternal Grandmother ??? Hearing loss Paternal Grandfather ??? Diabetes Paternal Grandfather REVIEW OF SYSTEMS Review of Systems Constitutional: Negative for activity change, appetite change, chills and fever. HENT: Negative for congestion, dental problem, ear pain, hearing loss and voice change. Eyes: Negative for pain and visual disturbance. Respiratory: Negative for apnea, cough, chest tightness and shortness of breath. Cardiovascular: Negative for chest pain, palpitations and leg swelling. Gastrointestinal: Negative for blood in stool, constipation, diarrhea, nausea and vomiting. Endocrine: Negative for cold intolerance and heat intolerance. Genitourinary: Negative for difficulty urinating and hematuria. Musculoskeletal: Positive for arthralgias, gait problem and myalgias. Skin: Negative for color change, rash and wound. Allergic/Immunologic: Negative for environmental allergies. Neurological: Negative for dizziness, syncope, numbness and headaches. Hematological: Negative for adenopathy. Does not bruise/bleed easily. Psychiatric/Behavioral: Negative for confusion. The patient is not nervous/anxious and is not hyperactive. Objective PHYSICAL EXAM BP 135/82 Pulse 98 Temp 36.2 ??C (97.1 ??F) Ht 165.1 cm (5' 5 ) Wt (!) 149.6 kg (329 lb 12.8 oz) LMP 02/24/2020 BMI 54.88 kg/m?? Right foot/ankle Inspection Erythema: absent Effusion: absent Surgical scar/wound: absent. Deformity: absent Callous: absent Edema: absent Skin temperature: normal Gait: antalgic Standing exam Hindfoot: neutral Forefoot: neutral Arch: normal Palpation/Pain/Tests The patient has normal palpation of the right foot and ankle. Heel: Achilles insertion: yes Achilles non insertion: yes Range of motion The patient has normal range of motion. Stability The patient has normal stability. Strength The patient has 5/5 strength throughout. Neurovascular The patient has normal vascular on the right side of their body. The patient has normal sensation on the right side of their body. REVIEW OF X-RAYS/STUDIES/LABS Xr Ankle Right 3 Or More Views Result Date: 03/01/2020 Narrative: [facility] Imaging Result Name: MAEVE ROSS Ordering Phys: ANGELA GOLDSTEIN Age: 20 Date of : 2000 Accession Number: [id number] Date of Service: 03/01/2020 Gender: F EXAM DESCRIPTION: XR ANKLE RIGHT 3 OR MORE VIEWS REASON FOR STUDY: 3 days ago fall ankle painDuration: 3 days TECHNIQUE: AP, lateral, and oblique radiographic views acquired of the right ankle. COMPARISON: Single view of the right ankle 04/25/2011 BONES/JOINTS: No acute fracture, malalignment or osseous abnormalities. Joint spaces are maintained. SOFT TISSUES: Unremarkable. OTHER: No other significant finding. Impression: No acute osseous abnormality. THIS IS AN ELECTRONICALLY VERIFIED FINAL REPORT 03/01/20207:03 PM - Electronically signed by Chhaya Espitia AB: Report ID: [id number] Reading Location: [place] [address] Assessment/Plan Diagnoses and all orders for this visit: Achilles tendinitis of right lower extremity - Ambulatory referral order to Physical Therapy -; Future Plan I explained to Ms. Ross the nature of her condition and treatment options. I provided her with an additional Tri Lock brace, as she states that the one she has is falling apart. I have also sent an order to [facility] for her to initiate formal physical therapy a couple times a week for the next 4 weeks. Hopefully this provides her with excellent relief of her symptoms. She may return to clinic on an as-needed basis shall they fail to resolve. She may contact our office with any further questions or concerns. ELSIE Parson documented in this encounter Plan of Treatment Not on file documented as of this encounter Visit Diagnoses Diagnosis Achilles tendinitis of right lower extremity- Primary documented in this encounter Care Teams Heel Sander Rubber Relationship Specialty Start Date End Date No, Physician PCP - General 12/26/17 04/23/20 No, Physician 01/10/17 documented as of this encounter
--- OUTSIDE RECORDS SUMMARY | 2024-06-13 23:58 | XMS_ITS | Encounter Summary ---
Author Organization [facility] Healthcare Address [address] [place] [address] Care Team Providers Care Mechanical Engineering Professor Name Role Phone No, Physician Unavailable Damian Verde NP Primary Care Provider [phone] Reason for Visit * Reason Comments Abdominal Pain Encounter Details Date Type Department Care Team ([facility] Contact Info) Description 06/20/2020 4:15 PM SOL[employer]WORKS MECHANICAL DESIGNER - 06/20/2020 6:55 PM SOL[employer]WORKS MECHANICAL DESIGNER Emergency [facility] [address] [place] [address] Edgardo Jc MD [address] [place] [address] Colitis (Primary Dx) Discharge Disposition: Discharge to home or self care Social History Tobacco Use Types Packs/Day Years Used Date Smoking Tobacco: Never Smokeless Tobacco: Never Alcohol Use Standard Drinks/Week Comments Yes 0 (1 standard drink = 0.6 oz pur e alcohol) occasional Comments No Sex and Gender Information Value Date Recorded Sex Assigned at Not on file Legal Sex Female 8:56 PM SOLIDWORKS MECHANICAL DESIGNER Gender Identity Not on file Sexual Orientation Not on file documented as of this encounter Last Filed Vital Signs Vital Sign Reading Time Taken Comments Blood Pressure 142/78 06/20/2020 6:45 PM SOL[employer]WORKS MECHANICAL DESIGNER Pulse 77 06/20/2020 6:45 PM SOLIDWORKS MECHANICAL DESIGNER Temperature 36.2 ??C (97.2 ??F) 06/20/2020 6:45 PM CS T Respiratory Rate 17 06/20/2020 6:45 PM SOL[employer]WORKS MECHANICAL DESIGNER Oxygen Saturation 99% 06/20/2020 6:45 PM SOLIDWORKS MECHANICAL DESIGNER Inhaled Oxygen Concentration - - Weight 136.1 kg (300 lb) 06/20/2020 4:13 PM SOLIDWORKS MECHANICAL DESIGNER Height 165.1 cm (5' 5 ) 06/20/2020 4:13 PM SOL[employer]WORKS MECHANICAL DESIGNER Body Mass Index 49.92 06/20/2020 4:13 PM SOLIDWORKS MECHANICAL DESIGNER documented in this encounter Discharge Diagnoses Diagnosis Noninfective gastroenteritis and colitis, unspecified - NONINFECTIVE GASTROENTERITIS AND COLITIS, UNSPECIFIED Essential (primary) hypertension - ESSENTIAL (PRIMARY) HYPERTENSION Unspecified essential hypertension Obesity, unspecified - OBESITY, UNSPECIFIED Acquired absence of other specified parts of digestive tract - ACQUIRED ABSENCE OF OTHER SPECIFIED PARTS OF DIGESTIVE TRACT Family history of ischemic heart disease and other diseases of the circulatory system - FAMILY HISTORY OF ISCHEMIC HEART DISEASE AND OTHER DISEASES OF THE CIRCULATORY SYSTEM Family history of diabetes mellitus - FAMILY HISTORY OF DIABETES MELLITUS documented in this encounter Discharge Instructions * Discharge Instructions* Edgardo Jc MD - 06/20/2020 6:41 PM SOLIDWORKS MECHANICAL DESIGNER Take all the antibiotics. Take pain medicine as needed. Take nausea medicine as needed. Follow up with primary care doctor. If you do not have a primary doctor, call [facility] referral line [phone]. [employer]CH[employer]ICAL DESIGNER * Attachments The following attachments cannot be sent through Care Everywhere. * Diarrhea, Bacterial (Adult) (Welsh) documented in this encounter Medications at Time of Discharge triamterene-hydroCHL OROthiazide 37.5-25 mg per tablet TK 1 T PO QD 01/14/2020 ciprofloxacin (CIPRO) 500 mg tablet Take 1 tablet (500 mg total) by mouth 2 (two) times a day for 10 days 20 tablet 06/20/2020 1 metroNIDAZOLE (FLAGYL) 500 mg tablet Take 1 tablet (500 mg total) by mouth 3 (three) times a day for 10 days 30 tablet 06/20/2020 1 clonazePAM (KlonoPIN) 0.25 mg disintegrating tablet Take [...] Refills Last Filled Start Date End Date HYDROcodone-acetamin ophen (NORCO) 5-325 mg per tabletIndications:Pa in Take 1 tablet by mouth every 6 (six) hours as needed for pain 12 tablet 06/20/2020 3 ondansetron ODT (ZOFRAN-ODT) 4 mg disintegrating tablet Dissolve 1 tablet oral every 4 hours as needed for nausea or vomiting. 15 tablet 06/20/2020 3 ciprofloxacin (CIPRO) 500 mg tablet Take 1 tablet (500 mg total) by mouth 2 (two) times a day for 10 days 20 tablet 06/20/2020 1 metroNIDAZOLE (FLAGYL) 500 mg tablet Take 1 tablet (500 mg total) by mouth 3 (three) times a day for 10 days 30 tablet 06/20/2020 1 documented in this encounter Discharge Disposition Disposition Code Departure Means Destination Discharge to home or self care documented in this encounter ED Notes * Edgardo Jc MD - 06/20/2020 4:54 PM CST HPI Chief Complaint Patient presents with ??? Abdominal Pain HPI 4:48 PM Bailee De Los Santos is a 20 y.o. female nonsmoker with a history of HTN, anemia, obesity, ovariancyst, and cholecystectomy who presents to the ED c/o LUQ abdominal pain that started a couple days ago. She states the pain has gradually worsened since onset. During triage, the pt stated that she experienced two episodes of emesis today. Pt also states that she has been experiencing diarrhea, as well as lower back pain. Pt denies experiencing fever, chills, cough, or dysuria. She previously came to the ED three times in April 2020 for similar symptoms of abdominal and pelvic pain. On 04/24, a CT ABD and pelvis was done which showed no acute abnormalities. She was discharged with instructions to visit her OBGYN for a follow-up and to return to the ED for worsening symptoms. The pt did test positive for Covid-19 on 06/06/2020. At the time, she experienced loss of taste andsmell. PMSFHx: Nursing note reviewed. Patient History: Past Medical History: Diagnosis Date ??? Anemia [...] Systems Review of Systems Constitutional: Negative for chills and fever. HENT: Negative for congestion, rhinorrhea and sore throat. Eyes: Negative for pain. Respiratory: Negative for cough and shortness of breath. Cardiovascular: Negative for chest pain and leg swelling. Gastrointestinal: Positive for abdominal pain, diarrhea, nausea and vomiting. Genitourinary: Negative for difficulty urinating. Musculoskeletal: Negative for myalgias. Skin: Negative for rash. Neurological: Negative for dizziness and headaches. Psychiatric/Behavioral: Negative for behavioral problems. Physical Exam ED Triage Vitals [06/20/20 1613] Temp Pulse Resp BP SpO2 36.3 ??C (97.4 ??F) 96 18 142/88 98 % Temp src Heart Rate Source Patient Position BP Location FiO2 (%) Temporal -- -- -- -- Physical Exam Vitals signs and nursing note reviewed. Constitutional: General: She is not in acute distress. Appearance: She is well-developed. HENT: Head: Normocephalic and atraumatic. Eyes: Conjunctiva/sclera: Conjunctivae normal. Neck: Musculoskeletal: Neck supple. Cardiovascular: Rate and Rhythm: Normal rate and regular rhythm. Heart sounds: Normal heart sounds. No murmur. Pulmonary: Effort: Pulmonary effort is normal. No respiratory distress. Breath sounds: Normal breath sounds. Abdominal: General: Bowel sounds are normal. There is no distension. Palpations: Abdomen is soft. Tenderness: There is abdominal tenderness in the left upper quadrant. There is no guarding. Skin: General: Skin is warm and dry. Neurological: Mental Status: She is alert and oriented to person, place, and time. Procedures MDM Labs Reviewed URINALYSIS AND REFLEX TO MICROSCOPIC AND CULTURE - Abnormal Result Value Color, ur Yellow Clarity, ur Turbid (*) Specific gravity, ur 1.031 (*) pH, urine 6.0 Protein, ur ql 1+ (*) Glucose, ur ql Negative Ketones, ur Trace Bilirubin, ur Negative Blood, ur Negative Urobilinogen, ur <2.0 Nitrite, ur Negative Leukocyte esterase, ur 2+ (*) UA reflex comment Reflex to microscopic UA will be performed. Narrative: Urine pH is affected by diet, medications, systemic acid-base disturbances, and renal tubular function. pH may affect urinary stone formation. For example, urine pH below 6.0 may help reduce the tendency for calcium phosphate stones and pH greater than 6.0 may reduce the tendency for uric acid stone formation. Source: [place].Last revised 06-14-2017 CBC WITH AUTO DIFFERENTIAL - Abnormal WBC 6.0 Hgb 11.5 (*) Hct 38.2 Plt 313 MPV 10.9 RBC 4.91 MCV 77.8 (*) MCH 23.4 (*) MCHC 30.1 (*) RDW CV 15.0 (*) RDW SD 41.9 NRBC abs 0.00 COMPREHENSIVE METABOLIC PANEL - Abnormal Sodium 141 Potassium, pl 3.5 Chloride 104 CO2 28 Anion gap 9 BUN 12 Creatinine 0.70 Glucose 108 Calcium 9.1 Bilirubin, total 0.2 Protein, pl 6.8 Albumin 3.6 Alk phos 132 (*) ALT 70 (*) AST 50 (*) URINALYSIS, MICROSCOPIC ONLY - Abnormal WBC, ur 0-5 RBC, ur 0-2 Epithelial cells, squamous, ur 11-20 (*) Bacteria, ur 1+ (*) Mucous, ur Present (*) Culture Reflex Comment Value: Reflex conditions for urine culture (WBC >10) not met. POCT HCG, URINE - Normal HCG, ur, POC Negative Lot Number [id number] QC Backgroud Clear Acceptable QC Control Line Acceptable LIPASE Lipase 32 DIFFERENTIAL AUTO Neutrophil abs 3.6 Imm gran abs 0.0 Lymphocyte abs 2.1 Monocyte abs 0.3 Eosinophil abs 0.0 Basophil abs 0.0 Neutrophil pct 58.9 Imm gran pct 0.3 Lymphocyte pct 34.7 Monocyte pct 5.1 Eosinophil pct 0.7 Basophil pct 0.3 EGFR GFR 123 XR Chest 1 View Final Result No acute cardiopulmonary abnormality. THIS IS AN ELECTRONICALLY VERIFIED FINAL REPORT 06/20/2020 6:51 PM - Electronically signed by Rafael Hernandes ML: ML Report ID: [id number] Reading Location: [place] [address] CT Abdomen Pelvis W Contrast Final Result 1. No definite evidence of bowel obstruction. 2. Mild mucosal thickening of the transverse colon, descending colon, and sigmoid colon, which may be related to underdistention versus mild colitis of infectious or inflammatory etiology. 3. Patchy ground-glass airspace opacities noted in the visualized lung bases, which is concerning for airspace disease of inflammatory or infectious etiology, possibly atypical or viral. Clinical correlation with laboratory values and viral testing is recommended as clinically indicated. 4. Subtle striated enhancement of the right kidney, which is nonspecific, and may be related to pyelonephritis. Clinical correlation with urinary analysis is recommended as clinically indicated. 5. Mild circumferential mucosal thickening of the urinary bladder, which may be related to underdistention versus cystitis. This can be further evaluated with aforementioned follow-up urinary analysis. 6. Likely follicular changes of the bilateral ovaries with dominant follicle or cyst in the bilateral ovaries measuring up to 1.5 cm on the right and 1.9 cm on the left. 7. Mild splenomegaly measuring 13.5 cm in the AP dimension. 8. Trace amount of nonspecific free fluid in the pelvis. 9. Normal appendix. THIS IS AN ELECTRONICALLY VERIFIED FINAL REPORT 06/20/2020 5:46 PM - Electronically signed by Carter Pollard D.O. PS: PS Report ID: [id number] Reading Location: [id number] BP 142/78 Pulse 77 Temp 36.2 ??C (97.2 ??F) (Temporal) Resp 17 Ht 165.1 cm (5' 5 ) Wt 136.1 kg (300 lb) LMP 06/10/2020 (Within Days) SpO2 99% BMI 49.92 kg/m?? MDM Number of Diagnoses or Management Options Amount and/or Complexity of Data Reviewed Clinical lab tests: ordered and reviewed Tests in the radiology section of CPT??: ordered and reviewed Tests in the medicine section of CPT??: reviewed and ordered Risk of Complications, Morbidity, and/or Mortality Presenting problems: moderate Diagnostic procedures: moderate Management options: moderate General comments: Patient with recent COVID infection presents with abdominal pain, diarrhea. CT shows colitis with fatty liver and ovarian cysts. Chest X-ray was negative. Patient has residual changes of COVID on her CT. Will go ahead and put on antibiotics and pain medicine as well as nausea medicine. Follow-up with primary care doctor. Patient Progress Patient progress: stable ED Course as of Jun 20 2119 Time: 06/20 1657 Comment: Urine is contaminated. By: Edgardo Jc MD Clinical Impression: Colitis This note is prepared by Nallely Baeza, acting as a scribe for Edgardo Jc MD. I electronically signed this note at 9:20 PM on 06/20/2020. This note is prepared by Cesar Phillips, acting as a scribe for Dr. Edgardo Jc. I electronically signed this note at 9:20 PM on 06/20/2020. I, Edgardo Jc MD have personally performed the services described in the documentation, reviewed the documentation, as recorded by the scribe in my presence, and it accurately and completely records my words and actions. Edgardo Jc MD 06/20/202120 [employer] MECHANICAL DESIGNER * Farida Flores RN - 06/20/2020 4:09 PM CST 20 yr old female with history of cholecystectomy presents to the ED with C/O abdominal pain, generalized ongoing x the past several days and progressively worsening. Pt reports nausea and 2 episodes of emesis today. Pt reports diarrhea, denies bloody stool. Pt denies fevers or chills, awake and alert upon arrival. [employer]OR[employer] MECHANICAL DESIGNER documented in this encounter Miscellaneous Notes * ED Triage Provider Note - Carlos Blum NP - 06/20/2020 4:24 PM SOLIDWORKS MECHANICAL DESIGNER 20 yo F presents to ED With complaints of generalized abdominal pain, mostly on the left side, x 2 days. Pt states she vomited x 2 today and reports diarrhea. Pt denies any fevers, chills, or dysuria. [employer]ORKS MECHANICAL DESIGNER documented in this encounter Plan of Treatment Not on file documented as of this encounter Procedures Procedure Name Priority Date/Time Associated Diagnosis Comments XR CHEST 1 VIEW ED 06/20/2020 6:45 PM SOLIDWORKS MECHANICAL DESIGNER CT ABDOMEN PELVIS W CONTRAST ED 06/20/2020 5:30 PM SOL[employer]WORKS MECHANICAL DESIGNER POCT HCG, URINE Routine 06/20/2020 4:39 PM SOL[employer]WORKS MECHANICAL DESIGNER URINALYSIS AND REFLEX TO MICROSCOPIC AND CULTURE STAT 06/20/2020 4:37 PM SOL[employer]WORKS MECHANICAL DESIGNER URINALYSIS, MICROSCOPIC ONLY STAT 06/20/2020 4:37 PM SOL[employer]WORKS MECHANICAL DESIGNER EGFR STAT 06/20/2020 4:31 PM SOLIDWORKS MECHANICAL DESIGNER DIFFERENTIAL AUTO STAT 06/20/2020 4:3 1 PM SOLIDWORKS MECHANICAL DESIGNER CBC WITH AUTO DIFFERENTIAL STAT 06/20/2020 4:31 PM SOLIDWORKS MECHANICAL DESIGNER LIPASE STAT 06/20/2020 4:31 PM SOLIDWORKS MECHANICAL DESIGNER COMPREHENSIVE METABOLIC PANEL STAT 06/20/2020 4:31 PM SOLIDWORKS MECHANICAL DESIGNER documented in this encounter Results * XR Chest 1 View (06/20/2020 6:45 PM SOLIDWORKS MECHANICAL DESIGNER) Anatomical Region Laterality Modality Body, Chest N/A Computed Radiogr aphy 06/20/2020 6:41 PM SOLIDWORKS MECHANICAL DESIGNER Impressions 06/20/2020 6:54 PM SOLIDWORKS MECHANICAL DESIGNER ?? No acute cardiopulmonary abnormality. THIS IS AN ELECTRONICALLY VERIFIED FINAL REPORT 06/20/2020 6:51 PM - Electronically signed by Rafael Hernandes ML: ML D: ??06/20/2020 6:51 PM T: ??06/20/2020 6:51 PM Report ID: [id number] Reading Location: ??[id number] Narrative 06/20/2020 6:54 PM SOLIDWORKS MECHANICAL DESIGNER [facility] ?Imaging Result Name: BAILEE DE LOS SANTOS ? Ordering Phys: EDGARDO JC Age: 20 ?Date of : 2000 ? Accession Number: [id number] Date of Service: 06/20/2020 ??Gender: F EXAM DESCRIPTION: ?? XR CHEST 1 VIEW REASON FOR STUDY: ?? Nonsmoker with a history of HTN, anemia, obesity, ovarian cyst, and cholecystectomy who presents to the ED c/o LUQ abdominal pain. ??She states the pain has gradually worsened since onset. During triage, the pt stated that she experienced two episodes of emesis today. Pt also states that she has been experiencing diarrhea, as well as lower back pain. Duration: Started couple of days ago TECHNIQUE: ?? Frontal radiographic view of the chest acquired. COMPARISON: ?? None available. ??LUNGS/PLEURA: ??No focal consolidation or pneumothorax. No pleural effusion. HEART/MEDIASTINUM: ??Heart size is normal. Normal mediastinal and hilar contours. HARDWARE/LINES/TUBES: ??None. BONES: ??No acute findings. OTHER: ??No other significant finding. Procedure Note Rafael Hernandes MD - 06/20/2020 [facility] Imaging Result Name: BAILEE DE LOS SANTOS Ordering Phys: EDGARDO CJ Age: 20 Date of : 2000 Accession Number: [id number] Date of Service: 06/20/2020 Gender: F EXAM DESCRIPTION: XR CHEST 1 VIEW REASON FOR STUDY: Nonsmoker with a history of HTN, anemia, obesity,ovarian cyst, and cholecystectomy who presents to the ED c/o LUQ abdominal pain.She states the pain has gradually worsened since onset. During triage, thept stated that she experienced two episodes of emesis today. Pt also statesthat she has been experiencing diarrhea, as well as lower back pain.Duration: Started couple of days ago TECHNIQUE: Frontal radiographic view of the chest acquired. COMPARISON: None available. LUNGS/PLEURA: No focal consolidation or pneumothorax. No pleural effusion. HEART/MEDIASTINUM: Heart size is normal. Normal mediastinal and hilar contours. HARDWARE/LINES/TUBES: None. BONES: No acute findings. OTHER: No other significant finding. IMPRESSION: No acute cardiopulmonary abnormality. THIS IS AN ELECTRONICALLY VERIFIED FINAL REPORT 06/20/2020 6:51 PM - Electronically signed by Rafael Hernandes ML: ML Report ID: [id number] Reading Location: [id number] Edgardo Jc MD IMG XR PROCEDURES Final Resu lt * CT Abdomen Pelvis W Contrast (06/20/2020 5:30 PM SOLIDWORKS MECHANICAL DESIGNER) Anatomical Region Laterality Modality Body N/A Computed Tomogra phy 06/20/2020 5:20 PM SOLIDWORKS MECHANICAL DESIGNER Impressions 06/20/2020 5:49 PM SOL[employer]WORKS MECHANICAL DESIGNER 1. ??No definite evidence of bowel obstruction. 2. ??Mild mucosal thickening of the transverse colon, descending colon, and sigmoid colon, which may be related to underdistention versus mild colitis of infectious or inflammatory etiology. 3. ??Patchy ground-glass airspace opacities noted in the visualized lung bases, which is concerning for airspace disease of inflammatory or infectious etiology, possibly atypical or viral. ??Clinical correlation with laboratory values and viral testing is recommended as clinically indicated. 4. ??Subtle striated enhancement of the right kidney, which is nonspecific, and may be related to pyelonephritis. ??Clinical correlation with urinary analysis is recommended as clinically indicated. 5. ??Mild circumferential mucosal thickening of the urinary bladder, which may be related to underdistention versus cystitis. ??This can be further evaluated with aforementioned follow-up urinary analysis. 6. ??Likely follicular changes of the bilateral ovaries with dominant follicle or cyst in the bilateral ovaries measuring up to 1.5 cm on the right and 1.9 cm on the left. 7. ??Mild splenomegaly measuring 13.5 cm in the AP dimension. 8. ??Trace amount of nonspecific free fluid in the pelvis. 9. ??Normal appendix. THIS IS AN ELECTRONICALLY VERIFIED FINAL REPORT 06/20/2020 5:46 PM - Electronically signed by Carter Pollard D.O. PS: PS D: ??06/20/2020 5:46 PM T: ??06/20/2020 5:46 PM Report ID: [id number] Reading Location: ??[id number] Narrative 06/20/2020 5:49 PM SOL[employer]WORKS MECHANICAL DESIGNER [facility] ?Imaging Result Name: FILIBERTO BAILEE Blank ? Ordering Phys: CARLOS BLUM Age: 20 ?Date of : 2000 ? Accession Number: [id number] Date of Service: 06/20/2020 ??Gender: F EXAM DESCRIPTION: ?? CT ABDOMEN PELVIS W CONTRAST REASON FOR STUDY: ?? Mid abdomen pain/pressure 2 days ago, history of ovarian cyst removal and cholecystectomy, optiray 320 100 20 gauge right forearmDuration: 2 days TECHNIQUE: ??CT scan of the abdomen and pelvis performed with intravenous and without oral contrast using helical scanning technique with dynamic intravenous contrast injection. Reconstructed coronal and sagittal MPR images reviewed. All images stored on PACS. Automated exposure control was used as a dose optimization technique for this examination. CONTRAST TYPE/DOSE: ?? 100 of optiray 320 injected via ??right forearm IV COMPARISON: ?? 04/24/2020 ??LOWER CHEST: ??The heart size is stable. ??There is no definite evidence of pericardial effusion. ??There are patchy ground-glass airspace opacities noted in the visualized lung bases. LIVER: ??The liver is grossly stable in size and contour without definite evidence of focal hepatic lesion. ??There is focal fatty infiltration of the liver along the falciform ligament. ??The hepatic and portal veins are grossly patent. GALLBLADDER: ??Surgically absent. BILE DUCTS: ??No intrahepatic or extrahepatic ductal dilatation. SPLEEN: ??There is mild splenomegaly measuring 13.5 cm in the AP dimension. PANCREAS: ??The pancreas appears grossly stable without definite of pancreatic ductal dilatation, peripancreatic inflammatory changes, or peripancreatic fluid collection. ADRENALS: ??The bilateral adrenal glands are grossly stable and unremarkable. KIDNEYS/URINARY TRACT: ??There is a subtle striated enhancement of the right kidney. ??There is no definite evidence of renal mass. ??There is no definite evidence of hydronephrosis or hydroureter. ??There is mild circumferential mucosal thickening of the urinary bladder. GI: ??There is no definite evidence of bowel obstruction. ??The appendix is well seen and demonstrates no evidence of appendicitis. ??There is mild mucosal thickening of the transverse colon, descending colon, and sigmoid colon. There is a small fat containing periumbilical hernia. ??There is a trace amount of free fluid in the pelvis. ??There is no definite of free air in the abdomen and pelvis. ??There is no definite of lymphadenopathy in the abdomen and pelvis. REPRODUCTIVE: ??There are likely follicular changes of the bilateral ovaries. There is a dominant follicle or cyst in the right ovary measuring 1.5 cm (axial image 130). ??There is a dominant follicle or cyst in the left ovary measuring 1.9 cm (axial image 134). MUSCULOSKELETAL: ??There is a mild levoscoliotic curvature of the spine with minimal to mild degenerative changes. OTHER: ??No other abnormality. Procedure Note Carter Pollard DO - 06/20/2020 [facility] Imaging Result Name: BAILEE DE LOS SANTOS Abhay Ordering Phys: CARLOS BLUM Age: 20 Date of : 2000 Accession Number: [id number] Date of Service: 06/20/2020 Gender: F EXAM DESCRIPTION: CT ABDOMEN PELVIS W CONTRAST REASON FOR STUDY: Mid abdomen pain/pressure 2 days ago, history ofovarian cyst removal and cholecystectomy, optiray 320 100 20 gauge right forearmDuration: 2 days TECHNIQUE: CT scan of the abdomen and pelvis performed with intravenousand without oral contrast using helical scanning technique with dynamic intravenous contrast injection. Reconstructed coronal and sagittal MPRimages reviewed. All images stored on PACS. Automated exposure control was used as a dose optimization technique forthis examination. CONTRAST TYPE/DOSE: 100 of optiray 320 injected via right forearm IV COMPARISON: 04/24/2020 LOWER CHEST: The heart size is stable. There is no definite evidence of pericardial effusion. There are patchy ground-glassairspace opacities noted in the visualized lung bases. LIVER: The liver is grossly stable in size and contour without definite evidence of focal hepatic lesion. There is focal fatty infiltration ofthe liver along the falciform ligament. The hepatic and portal veins aregrossly patent. GALLBLADDER: Surgically absent. BILE DUCTS: No intrahepatic or extrahepatic ductal dilatation. SPLEEN: There is mild splenomegaly measuring 13.5 cm in the APdimension. PANCREAS: The pancreas appears grossly stable without definite ofpancreatic ductal dilatation, peripancreatic inflammatory changes, orperipancreatic fluid collection. ADRENALS: The bilateral adrenal glands are grossly stable andunremarkable. KIDNEYS/URINARY TRACT: There is a subtle striated enhancement of theright kidney. There is no definite evidence of renal mass. There is nodefinite evidence of hydronephrosis or hydroureter. There is mildcircumferential mucosal thickening of the urinary bladder. GI: There is no definite evidence of bowel obstruction. The appendix iswell seen and demonstrates no evidence of appendicitis. There is mildmucosal thickening of the transverse colon, descending colon, and sigmoid colon. There is a small fat containing periumbilical hernia. There is a traceamount of free fluid in the pelvis. There is no definite of free air in theabdomen and pelvis. There is no definite of lymphadenopathy in the abdomen andpelvis. REPRODUCTIVE: There are likely follicular changes of the bilateralovaries. There is a dominant follicle or cyst in the right ovary measuring 1.5 cm (axial image 130). There is a dominant follicle or cyst in the leftovary measuring 1.9 cm (axial image 134). MUSCULOSKELETAL: There is a mild levoscoliotic curvature of the spinewith minimal to mild degenerative changes. OTHER: No other abnormality. IMPRESSION: 1. No definite evidence of bowel obstruction. 2. Mild mucosal thickening of the transverse colon, descending colon,and sigmoid colon, which may be related to underdistention versus mild colitisof infectious or inflammatory etiology. 3. Patchy ground-glass airspace opacities noted in the visualized lungbases, which is concerning for airspace disease of inflammatory or infectious etiology, possibly atypical or viral. Clinical correlation withlaboratory values and viral testing is recommended as clinically indicated. 4. Subtle striated enhancement of the right kidney, which is nonspecific,and may be related to pyelonephritis. Clinical correlation with urinaryanalysis is recommended as clinically indicated. 5. Mild circumferential mucosal thickening of the urinary bladder, whichmay be related to underdistention versus cystitis. This can be furtherevaluated with aforementioned follow-up urinary analysis. 6. Likely follicular changes of the bilateral ovaries with dominantfollicle or cyst in the bilateral ovaries measuring up to 1.5 cm on the right and1.9 cm on the left. 7. Mild splenomegaly measuring 13.5 cm in the AP dimension. 8. Trace amount of nonspecific free fluid in the pelvis. 9. Normal appendix. THIS IS AN ELECTRONICALLY VERIFIED FINAL REPORT 06/20/2020 5:46 PM - Electronically signed by Carter Pollard D.O. PS: PS Report ID: [id number] Reading Location: [place] [address] Carlos Blum ENVIRONMENTAL COORDINATOR IMG CT PROCEDURES Final Resu lt * POCT hCG, urine (06/20/2020 4:39 PM [employer] MECH[employer]ICAL DESIGNER) HCG, ur, POC Negative Lot Number [id number] QC Backgroud Clear Acceptable QC Control Line Acceptable Urine 06/20/2020 4:39 PM [employer] MECH[employer]ICAL DESIGNER Carlos Blum NP POINT OF CARE TEST ORDERABLE S Final Result * (ABNORMAL) Urinalysis, microscopic only (06/20/2020 4:37 PM [employer] MECHANICAL DESIGNER) WBC, ur 0-5 0 - 5 /HPF [facility] ([place]) RBC, ur 0-2 0 - 2 /HPF [facility] ([place]) Epithelial cells, squamous, ur 11-20(A) 0 - 5 /HPF [facility] ([place]) Bacteria, ur 1+(A) [facility] ([place]) Mucous, ur Present(A) [facility] ([place]) Culture Reflex Comment Reflex conditions for urine culture (WBC >10) not met. [facility] ([place]) Urine 06/20/2020 4:37 PM [employer] MECHANICAL DESIGNER 06/20/2020 4:45 PM [employer] MECHANICAL DESIGNER Carlos Blum NP LAB URINE ORDERABLES Final R esult [facility] ([place]) 1 [facility] Department [place] [address] * (ABNORMAL) Urinalysis reflex to microscopic and culture Urine (06/20/2020 4:37 PM [employer] MECHANICAL DESIGNER) Color, ur Yellow Yellow [facility] ([place]) Clarity, ur Turbid(A) Clear [facility] ([place]) Specific gravity, ur 1.031(H) 1.010 - 1.025 [facility] ([place]) pH, urine 6.0 [facility] ([place]) Protein, ur ql 1+(A) Negative [facility] ([place]) Glucose, ur ql Negative Negative [facility] ([place]) Ketones, ur Trace Negative [facility] ([place]) Bilirubin, ur Negative Negative [facility] ([place]) Blood, ur Negative Negative [facility] ([place]) Urobilinogen, ur <2.0 <2.0 mg/dL [facility] ([place]) Nitrite, ur Negative Negative [facility] ([place]) Leukocyte esterase, ur 2+(A) Negative [facility] ([place]) UA reflex comment Reflex to microscopic UA will be performed. [facility] ([place]) Urine 06/20/2020 4:37 PM [employer] MECHANICAL DESIGNER 06/20/2020 4:45 PM [employer] MECHANICAL DESIGNER Narrative [facility] ([place]) - 06/20/2020 4:53 PM [employer] MECH[employer]ICAL DESIGNER ?? Urine pH is affected by diet, medications, systemic acid-base disturbances, and renal tubular function. ??pH may affect urinary stone formation. ??For example, urine pH below 6.0 may help reduce the tendency for calcium phosphate stones and pH greater than 6.0 may reduce the tendency for uric acid stone formation. Source: [facility] [employer]. Last revised 06-14-2017 us Carlos Blum NP LAB MICROBIOLOGY - GENERAL O RDERABLES Final Result [facility] ([place]) 1 [facility] Department [place] [address] * eGFR (06/20/2020 4:31 PM [employer] MECH[employer]ICAL DESIGNER) eGFR 123 mL/min/1.7 3 m2 [facility] ([place]) Comment: [...] interpretive data was last reviewed 2020 Blood specimen (specimen) 06/20/2020 4:31 PM [employer] MECH[employer]ICAL DESIGNER 06/20/2020 4:36 PM [employer] MECHANICAL DESIGNER us Carlos Blum NP LAB BLOOD ORDERABLES Final R esult [facility] ([facility]) 1 [facility] Department [place] [address] * Differential, auto (06/20/2020 4:31 PM [employer] MECHANICAL DESIGNER) Neutrophil abs 3.6 1.7 - 6.5 K/cumm [facility] ([place]) Imm gran abs 0.0 0.0 - 0.1 K/cumm [facility] ([place]) Lymphocyte abs 2.1 0.8 - 3.3 K/cumm [facility] ([place]) Monocyte abs 0.3 0.2 - 0.8 K/cumm [facility] ([place]) Eosinophil abs 0.0 0.0 - 0.5 K/cumm [facility] ([place]) Basophil abs 0.0 0.0 - 0.1 K/cumm [facility] ([place]) Neutrophil pct 58.9 % [facility] ([place]) Comment: Interpretive Data Percent cell count reference ranges are not reported, since discordance with absolute values may lead to misinterpretation of CBC data. Current Interpretive Data was last revised on 2017. Imm gran pct 0.3 % [facility] ([facility]) Comment: Interpretive Data Percent cell count reference ranges are not reported, since discordance with absolute values may lead to misinterpretation of CBC data. Current Interpretive Data was last revised on 2017. Lymphocyte pct 34.7 % [facility] ([place]) Comment: Interpretive Data Percent cell count reference ranges are not reported, since discordance with absolute values may lead to misinterpretation of CBC data. Current Interpretive Data was last revised on 2017. Monocyte pct 5.1 % [facility] ([place]) Comment: Interpretive Data [...] last revised on 2017. Blood specimen (specimen) 06/20/2020 4:31 PM [employer] MECHANICAL DESIGNER 06/20/2020 4:36 PM [employer] MECHANICAL DESIGNER Carlos Blum ENVIRONMENTAL COORDINATOR LAB BLOOD ORDERABLES Final R esult Performing Organization Address City/[facility] Co de Phone Number [facility] ([facility]) 1 [facility] [place] [address] * Lipase (06/20/2020 4:31 PM SOL[employer] MECHANICAL DESIGNER) Lipase 32 10 - 99 Units/L [facility] ([place]) Blood specimen (specimen) 06/20/2020 4:31 PM [employer] MECHANICAL DESIGNER 06/20/2020 4:36 PM [employer] MECHANICAL DESIGNER Carlos Blmu ENVIRONMENTAL COORDINATOR LAB BLOOD ORDERABLES Final R esult Performing Organization Address City/[facility]/ZIP Co de Phone Number [facility] ([place]) [facility] [place] [address] * (ABNORMAL) Comprehensive metabolic panel (06/20/2020 4:31 PM SOL[employer] MECHANICAL DESIGNER) Sodium 141 135 - 145 mmol/L [facility] ([place]) Potassium, pl 3.5 3.3 - 4.9 mmol/L [facility] ([place]) Chloride 104 97 - 110 mmol/L [facility] ([place]) CO2 28 22 - 32 mmol/L [facility] ([place]) Anion gap 9 2 - 15 mmol/L [facility] ([place]) BUN 12 8 - 25 mg/dL [facility] ([place]) Creatinine 0.70 0.60 - 1.10 mg/dL [facility] ([place]) Glucose 108 70 - 199 mg/dL [facility] ([place]) [...] interpretive data was last revised 2017. Calcium 9.1 8.5 - 10.3 mg/dL [facility] ([place]) Bilirubin, total 0.2 0.1 - 1.2 mg/dL [facility] ([place]) Protein, pl 6.8 6.5 - 8.5 g/dL [facility] ([place]) Albumin 3.6 3.5 - 5.0 g/dL [facility] ([place]) Alk phos 132(H) 40 - 130 Units/L [facility] ([place]) ALT 70(H) 7 - 45 Units/L [facility] ([place]) AST 50(H) 10 - 45 Units/L [facility] ([place]) Blood specimen (specimen) 06/20/2020 4:31 PM SOL[employer] MECHANICAL DESIGNER 06/20/2020 4:36 PM [employer] MECHANICAL DESIGNER Carlos Blum ENVIRONMENTAL COORDINATOR LAB BLOOD ORDERABLES Final R esult [facility] ([place]) 1 [facility] [place] [address] * (ABNORMAL) CBC with auto differential (06/20/2020 4:31 PM SOL[employer]WOR[employer] MECHANICAL DESIGNER) WBC 6.0 3.8 - 9.9 K/cumm [facility] ([place]) Hgb 11.5(L) 11.9 - 15.5 g/dL [facility] ([place]) Hct 38.2 35.6 - 45.5 % [facility]) Plt 313 150 - 400 K/cumm [facility] ([place]) MPV 10.9 9.1 - 12.3 fL [facility] ([place]) RBC 4.91 3.90 - 5.20 M/cumm [facility] ([place]) MCV 77.8(L) 81.3 - 96.4 fL [facility] ([place]) MCH 23.4(L) 27.1 - 33.3 pg [facility] ([place]) MCHC 30.1(L) 32.3 - 35.7 g/dL [facility] ([place]) RDW CV 15.0(H) 11.1 - 14.9 % [facility] ([place]) RDW SD 41.9 35.7 - 48.1 fL [facility] ([place]) NRBC abs 0.00 0.00 - 0.01 K/cumm [facility] ([place]) Blood specimen (specimen) 06/20/2020 4:31 PM [employer] MECHANICAL DESIGNER 06/20/2020 4:36 PM [employer] MECHANICAL DESIGNER Carlos Blum ENVIRONMENTAL COORDINATOR LAB BLOOD ORDERABLES Final R esult [facility] ([place]) [facility] [place] [address] documented in this encounter Visit Diagnoses Diagnosis Colitis- Primary Other and unspecified noninfectious gastroenteritis and colitis documented in this encounter Administered Medications Inactive Administered Medications - up to 3 most recent administrations Medication Order MAR Action Action Date Dose Rate Site fentaNYL (SUBLIMAZE) preservative free injection 50 mcg 50 mcg, intravenous, Once, On 06/20/20 at 1655, For 1 dose Given 06/20/2020 5:11 PM [employer] MECHANICAL DESIGNER 50 mcg ioversoL (OPTIRAY 320) intravenous syringe 100 mL 100 mL, intravenous, Once in imaging, contrast, Starting on 06/20/20 at 1727, For 1 dose Given 06/20/2020 5:29 PM [employer] MECHANICAL DESIGNER 100 mL ondansetron (ZOFRAN) injection 4 mg 4 mg, intravenous, Administer over 2 Minutes, Once, On 06/20/20 at 1655, For 1 dose Given 06/20/2020 5:11 PM [employer] MECHANICAL DESIGNER 4 mg sodium chloride 0.9% bolus 1,000 mL 1,000 mL, intravenous, Once, On 06/20/20 at 1655, For 1 dose New Bag 06/20/2020 5:11 PM [employer] MECHANICAL DESIGNER 1,000 mL documented in this encounter Active and Recently Administered Medications Times are shown in [employer] MECH[employer]ICAL DESIGNER. Scheduled Medication Order 06/18/2020 06/19/2020 06/20/2020 fentaNYL (SUBLIMAZE) preservative free injection 50 mcg (COMPLETED) 50 mcg, intravenous, Once, On 06/20/20 at 1655, For 1 dose 1710 (Given - Provid er: Hortencia Schroeder RN) ondansetron (ZOFRAN) injection 4 mg (COMPLETED) 4 mg, intravenous, Administer over 2 Minutes, Once, On 06/20/20 at 1655, For 1 dose 1710 (Given - Provid er: Hortencia Schroeder RN) sodium chloride 0.9% bolus 1,000 mL (COMPLETED) 1,000 mL, intravenous, Once, On 06/20/20 at 1655, For 1 dose 171 (New Bag - Prov ider: Hortencia Schroeder RN)1750 (Stopped - Provider: Hortencia Schroeder RN) PRN Medication Order 06/18/2020 06/19/2020 06/20/2020 ioversoL (OPTIRAY 320) intravenous syringe 100 mL (COMPLETED) 100 mL, intravenous, Once in imaging, contrast, Starting on 06/20/20 at 1727, For 1 dose 172 (Given - Provid er: Shona Duncan, RT - Comment: [id number] [id number]) documented in this encounter Orders Medications Ordered That Ed ht Not Have Been Administered Count Last Ordered Date First Ordered Date metroNIDAZOLE (FLAGYL) 500 m g/100 mL in sodium chloride (premix) 500 mg 1 06/20/2020 documented in this encounter Additional Health Concerns Infection Onset Date Last Indicated Resolved Time COVID19 Comment:Added from the Screening question BPA, identifying patients that tested positive for COVID in the last 14 days and the result is from a facility outside [facility] . 06/06/2020 06/20/2020 07/04/2020 3:05 AM [employer] MECHANICAL DESIGNER documented as of this encounter Care Teams Mechanical Engineering Professor Relationship Specialty Start Date End Date Damian Verde NP [address] [place] [address] PCP - General 04/24/20 04/20/21 No, Physician 01/10/17 documented as of this encounter
--- OUTSIDE RECORDS SUMMARY | 2024-06-13 23:58 | XMS_ITS | Encounter Summary ---
Author Organization [facility] Healthcare Address [address] [place] [address] Care Team Providers Care Cable Television Technician Name Role Phone No, Physician Unavailable No, Physician Primary Care Provider [phone] Reason for Visit * Reason Comments Vaginal Bleeding Abdominal Pain Encounter Details Date Type Department Care Team (Late st Contact Info) Description 05/30/2018 12:49 PM SQL PROGRAMMER - 05/30/2018 2:41 PM SQL PROGRAMMER Emergency [facility] Emergency Department [address] [place] [address] Shayne Stratton MD [address] [place] [address] DUB (dysfunctional uterine bleeding) (Primary Dx) Discharge Disposition: Discharge to home or self care Social History Tobacco Use Types Packs/Day Years Used Date Smoking Tobacco: Never Smokeless Tobacco: Never Alcohol Use Standard Drinks/Week Comments No 0 (1 standard drink = 0.6 oz pur e alcohol) Comments No Sex and Gender Information Value Date Recorded Sex Assigned at Not on file Legal Sex Female 8:56 PM SQL PROGRAMMER Gender Identity Not on file Sexual Orientation Not on file documented as of this encounter Last Filed Vital Signs Vital Sign Reading Time Taken Comments Blood Pressure 145/92 05/30/2018 1:18 PM SQL PROGRAMMER Pulse 102 05/30/2018 1:15 PM SQL PROGRAMMER Temperature 36.6 ??C (97.8 ??F) 05/30/2018 1:15 PM CS T Respiratory Rate 16 05/30/2018 1:15 PM SQL PROGRAMMER Oxygen Saturation 97% 05/30/2018 1:15 PM SQL PROGRAMMER Inhaled Oxygen Concentration - - Weight 136.1 kg (300 lb) 05/30/2018 1:15 PM SQL PROGRAMMER Height 165.1 cm (5' 5 ) 05/30/2018 1:15 PM SQL PROGRAMMER Body Mass Index 49.92 05/30/2018 1:15 PM SQL PROGRAMMER documented in this encounter Discharge Instructions * Attachments The following attachments cannot be sent through Care Everywhere. * Dysfunctional Uterine Bleeding (AfterCare(R) Instructions(ER/ED)) (Danish) documented in this encounter Medications at Time of Discharge ibuprofen (ADVIL,MOTRIN) 800 mg tablet Take 1 tablet (800 mg total) by mouth 3 (three) times a day. 21 tablet 12/05/2017 09/25/2018 JUNE FE 24 1 mg-20 mcg (24)/75 mg (4) per tablet TK 1 T PO QD 3 05/15/201809/25 medroxyPROGESTERo ne (PROVERA) 10 mg tablet Take 1 tablet (10 mg total) by mouth daily. 10 tablet 05/30/2018 09/25/2018 documented as of this encounter Ordered Prescriptions Prescription Sig Dispense Quantity Refills Last Filled Start Date End Date medroxyPROGESTERon e (PROVERA) 10 mg tablet Take 1 tablet (10 mg total) by mouth daily. 10 tablet 05/30/2018 09/25/2018 documented in this encounter Discharge Disposition Disposition Code Departure Means Destination Discharge to home or self care documented in this encounter ED Notes * Shayne Stratton MD - 05/30/2018 1:22 PM CST HPI Chief Complaint Patient presents with ??? Vaginal Bleeding ??? Abdominal Pain 1:22 PM Maeve Ross is a 18 y.o. female presenting to the ED c/o vaginal bleeding which began 11 days ago after beginning control. She notes that this was initially mild, similar to a regularmenstrual period, but has been gradually worsening. This worsened significantly two days ago and she began passing clots. She stopped taking her control at that time. The patient also reports bilateral lower abdominal pain. She did contact her OBGYN today who recommended that she be evaluatedin the ED. She is scheduled for a pelvic ultrasound next week. Prior to beginning control 11 days ago, the patient had not had a menstrual period for 4-5 months. This was not unusual, as she typically has very irregular menstrual cycles. Patient was seen in this ED on 05/28, two days ago, with the same symptoms. Hemoglobin was 11.4. Patient was discharged from the ED and recommended to stop her control. Patient History Past Medical History: Diagnosis Date ??? Anemia ??? Obesity Past Surgical History: Procedure Laterality Date ??? [...] Grandfather ??? Diabetes Paternal Grandfather Social History Substance Use Topics ??? Smoking status: Never Smoker ??? Smokeless tobacco: Never Used ??? Alcohol use No Review of Systems Review of Systems Constitutional: Negative for chills, fatigue and fever. HENT: Negative for congestion, ear pain, rhinorrhea, sneezing and sore throat. Respiratory: Negative for cough, shortness of breath and wheezing. Cardiovascular: Negative for chest pain and palpitations. Gastrointestinal: Positive for abdominal pain. Negative for constipation, diarrhea, nausea and vomiting. Genitourinary: Positive for vaginal bleeding. Negative for dysuria and frequency. Musculoskeletal: Negative for arthralgias, back pain, myalgias and neck pain. Skin: Negative for rash and wound. Neurological: Negative for dizziness, syncope, weakness, light-headedness and headaches. All other systems reviewed and are negative. Physical Exam ED Triage Vitals Temp Pulse Resp BP SpO2 05/30/18 1315 05/30/18 1315 05/30/18 1315 05/30/18 1318 05/30/18 1315 36.6 ??C (97.8 ??F) 102 16 145/92 97 % Temp src Heart Rate Source Patient Position BP Location FiO2 (%) 05/30/18 1315 -- -- -- -- Temporal Physical Exam Constitutional: She is oriented to person, place, and time. She appears well- developed and well-nourished. No distress. HENT: Head: Normocephalic and atraumatic. Mouth/Throat: Oropharynx is clear and moist. Eyes: Conjunctivae and EOM are normal. Neck: Normal range of motion. Neck supple. Cardiovascular: Normal rate, regular rhythm, normal heart sounds and intact distal pulses. Exam reveals no gallop and no friction rub. No murmur heard. Pulmonary/Chest: Effort normal and breath sounds normal. No respiratory distress. She has no wheezes. She has no rales. Abdominal: Soft. She exhibits no distension. There is no tenderness. Musculoskeletal: Normal range of motion. She exhibits no edema, tenderness or deformity. Neurological: She is alert and oriented to person, place, and time. Skin: Skin is warm and dry. Capillary refill takes less than 2 seconds. No rash noted. No erythema.No pallor. Psychiatric: She has a normal mood and affect. Her behavior is normal. Nursing note and vitals reviewed. MDM Procedures Labs Reviewed CBC WITH AUTO DIFFERENTIAL - Abnormal Result Value WBC 8.4 Hgb 11.1 (*) Hct 35.2 (*) Plt 259 MPV 10.6 RBC 4.50 MCV 78.2 (*) MCH 24.7 (*) MCHC 31.5 (*) RDW CV 15.4 (*) RDW SD 43.9 NRBC Abs 0.00 Narrative: COMPREHENSIVE METABOLIC PANEL Sodium 139 Potassium, pl 4.4 Chloride 101 CO2 29 Anion Gap 9 BUN 11 Creatinine 0.73 Glucose 93 Calcium 9.7 Bilirubin, total <0.2 Protein, pl 7.2 Albumin 3.6 Alk phos 100 ALT 17 AST 14 Narrative: HCG, BLOOD, QUANTITATIVE hCG, quant <5.0 Narrative: TYPE AND SCREEN LIPASE Lipase 22 Narrative: ABO/RH ABO/RH. A Positive Narrative: Has the patient had Daratumumab (Darzalex) in the past 6 months?->Unknown ANTIBODY SCREEN Steve, indirect, Gel Interpretation Negative ABSC Narrative: Has the patient had Daratumumab (Darzalex) in the past 6 months?->Unknown DIFFERENTIAL AUTO Neutrophil absolute 5.8 Immature granulocyte absolute 0.0 Lymphocytes absolute 2.0 Monocyte absolute 0.5 Eosinophils absolute 0.1 Basophils, abs 0.0 Neutrophils 68.7 Immature granulocytes 0.2 Lymphocytes 23.7 Monocytes 6.3 Eosinophils 0.7 Basophils 0.4 Narrative: BILIRUBIN, DIRECT Bilirubin, direct <0.2 Narrative: EGFR GFR 119 Narrative: No orders to display BP 145/92 Pulse 102 Temp 36.6 ??C (97.8 ??F) (Temporal) Resp 16 Ht 165.1 cm (5' 5 ) Wt 136.1 kg (300 lb) SpO2 97% BMI 49.92 kg/m?? [facility] ED Course as of May 30 2000 Time: 05/30 1324 Value: BP: 145/92 Comment: Pre-hypertension/Hypertension: The patient has been informed that they may have pre-hypertension or Hypertension based on a blood pressure reading in the Emergency Department. I recommend that the patient call the primary care provider listed on their discharge instructions or a physician of their choice this week to arrange follow up for further evaluation of possible pre- hypertension or Hypertension. By: Serge Harper Time: 05/30 1426 Comment: Rechecked patient. Discussed all results from the ED course and plan for discharge. Patient understands and agrees to the plan. All questions addressed. By: Serge Iniguez Attestation: 8:00 PM: Serge Harper, scribing for and in the presence of Shayne Stratton MD. I electronically signed this note at 8:00 PM on 05/30/2018. Provider Attestation: I, Shayne Stratton MD, have personally performed the services described in the documentation, reviewed the documentation, as recorded by the scribe in my presence, and it accurately and completely records my words and actions. Clinical Impression: DUB (dysfunctional uterine bleeding) Shayne Stratton MD 05/30/18 1425 Shayne Stratton MD 05/30/181999 PROGRAMMER PROGRAMMER * Afshan Espino RN - 05/30/2018 1:14 PM CST Patient was recently seen in ED for vaginal bleeding after starting control. control was stopped but patient still reports heavy vaginal bleeding with clots and abdominal and lower back pain. PROGRAMMER documented in this encounter Plan of Treatment Not on file documented as of this encounter Procedures Procedure Name Priority Date/Time Associated Diagnosis Comments EGFR STAT 05/30/2018 1:44 PM SQL PROGRAMMER DIFFERENTIAL AUTO STAT 05/30/2018 1:4 4 PM SQL PROGRAMMER CBC WITH AUTO DIFFERENTIAL STAT 05/30/2018 1:44 PM SQL PROGRAMMER ABO/RH STAT 05/30/2018 1:44 PM SQL PROGRAMMER ANTIBODY SCREEN STAT 05/30/2018 1:44 PM SQL PROGRAMMER TYPE AND SCREEN STAT 05/30/2018 1:44 PM SQL PROGRAMMER HCG, BLOOD, QUANTITATIVE STAT 05/30/2018 1:44 PM SQL PROGRAMMER LIPASE STAT 05/30/2018 1:44 PM SQL PROGRAMMER BILIRUBIN, DIRECT STAT 05/30/2018 1:4 4 PM SQL PROGRAMMER COMPREHENSIVE METABOLIC PANEL STAT 05/30/2018 1:44 PM SQL PROGRAMMER documented in this encounter Results * eGFR (05/30/2018 1:44 PM SQL PROGRAMMER) eGFR 119 mL/min/1.7 3 m2 [facility] ([place]) Comment: Interpretive Data Reference Interval Normal ?>/= 90 mL/min/1.73m2 Mildly decreased* ? 60 - 89 mL/min/1.73m2 Mildly to moderately decreased ?45 - 59 mL/min/1.73m2 Moderately to severely decreased ??30 - 44 mL/min/1.73m2 Severely decreased ?15 - 29 mL/min/1.73m2 Kidney Failure ?< 15 ??mL/min/1.73m2 *Relative to young adult level If -Croatian multiply value by 1.16. Estimated glomerular filtration [...] was last reviewed 2015. Blood specimen (specimen) 05/30/2018 1:44 PM SQL PROGRAMMER 05/30/2018 1:48 PM SQL PROGRAMMER Narrative [facility] ([place]) - 05/30/2018 2:11 PM SQL PROGRAMMER us Kavitha Lange MD LAB BLOOD ORDERABLES Final Result [facility] ([place]) [address] [facility] Department of Laboratories [place], [place] [id number] * Bilirubin, direct (05/30/2018 1:44 PM SQL PROGRAMMER) Bilirubin, direct <0.2 0.1 - 0.3 mg/dL [facility] ([place]) Blood specimen (specimen) 05/30/2018 1:44 PM SQL PROGRAMMER 05/30/2018 1:48 PM SQL PROGRAMMER Narrative [facility] ([place]) - 05/30/2018 2:11 PM SQL PROGRAMMER us Kavitha Lange MD LAB BLOOD ORDERABLES Final Result [facility] ([place]) [address] [facility] Department [place] [address] * Differential, auto (05/30/2018 1:44 PM SQL PROGRAMMER) Neutrophil abs 5.8 1.7 - 6.5 K/cumm [facility] ([place]) Imm gran abs 0.0 0.0 - 0.1 K/cumm [facility] ([place]) Lymphocyte abs 2.0 0.8 - 3.3 K/cumm [facility] ([place]) Monocyte abs 0.5 0.2 - 0.8 K/cumm [facility] ([place]) Eosinophil abs 0.1 0.0 - 0.5 K/cumm [facility] ([place]) Basophil abs 0.0 0.0 - 0.1 K/cumm [facility] ([place]) Neutrophil pct 68.7 % [facility] ([place]) Comment: Interpretive Data Percent cell count reference ranges are not reported, since discordance with absolute values may lead to misinterpretation of CBC data. Current Interpretive Data was last revised on 2017. Imm gran pct 0.2 % [facility] ([place]) Comment: Interpretive Data Percent cell count reference ranges are not reported, since discordance with absolute values may lead to misinterpretation of CBC data. Current Interpretive Data was last revised on 2017. Lymphocyte pct 23.7 % [facility] ([place]) Comment: Interpretive Data Percent cell count reference ranges are not reported, since discordance with absolute values may lead to misinterpretation of CBC data. Current Interpretive Data was last revised on 2017. Monocyte pct 6.3 % [facility] ([place]) Comment: Interpretive Data [...] last revised on 2017. Blood specimen (specimen) 05/30/2018 1:44 PM SQL PROGRAMMER 05/30/2018 1:48 PM SQL PROGRAMMER Narrative [facility] ([place]) - 05/30/2018 1:50 PM SQL PROGRAMMER Kavitha Lange MD LAB BLOOD ORDERABLES Final Result Performing Organization Address [facility]/ZIP Co de Phone Number [facility] ([place]) [address] [facility] [place] [address] * Antibody screen (05/30/2018 1:44 PM SQL PROGRAMMER) Steve, indirect, Gel Interpretation Negative ABSC [facility] ([place]) Blood specimen (specimen) 05/30/2018 1:44 PM SQL PROGRAMMER 05/30/2018 1:48 PM SQL PROGRAMMER Narrative [facility] ([place]) - 05/30/2018 2:29 PM SQL PROGRAMMER Has the patient had Daratumumab (Darzalex) in the past 6 months?->Unknown Kavitha Lange MD LAB BLOOD BANK TEST ORDERA BLES Final Result [facility] ([place] 1 [facility] [place] [address] * ABO/Rh (05/30/2018 1:44 PM SQL PROGRAMMER) ABO/Rh A Positive [facility] ([place]) Blood specimen (specimen) 05/30/2018 1:44 PM SQL PROGRAMMER 05/30/2018 1:48 PM SQL PROGRAMMER Narrative [facility] ([place]) - 05/30/2018 2:29 PM SQL PROGRAMMER Has the patient had Daratumumab (Darzalex) in the past 6 months?->Unknown Kavitha Lange MD LAB BLOOD BANK TEST ORDERA BLES Final Result Performing Organization Address City/[facility]/ZIP Co de Phone Number [facility] ([place]) [address] [facility] [place] [address] * Lipase (05/30/2018 1:44 PM SQL PROGRAMMER) Lipase 22 10 - 99 Units/L [facility] ([place]) Blood specimen (specimen) (Blood, Venous) 05/30/2018 1:44 PM SQL PROGRAMMER 05/30/2018 1:48 PM SQL PROGRAMMER Narrative [facility] ([place]) - 05/30/2018 2:11 PM SQL PROGRAMMER Kavitha Lange MD LAB BLOOD ORDERABLES Final Result Performing Organization Address [facility]/ZIP Co de Phone Number [facility] ([place]) [address] [facility] [place] [address] * hCG, blood, quantitative (05/30/2018 1:44 PM SQL PROGRAMMER) hCG, quant <5.0 0.0 - 5.0 IUnits/L [...] last revised on 2018. Blood specimen (specimen) 05/30/2018 1:44 PM SQL PROGRAMMER 05/30/2018 1:48 PM SQL PROGRAMMER Narrative [facility] ([place]) - 05/30/2018 2:13 PM SQL PROGRAMMER us Kavitha Lange MD LAB BLOOD ORDERABLES Final Result [facility] ([place]) [address] [facility] [place] [address] * Comprehensive metabolic panel (05/30/2018 1:44 PM SQL PROGRAMMER) Sodium 139 135 - 145 mmol/L [facility] ([place]) Potassium, pl 4.4 3.3 - 4.9 mmol/L [facility] ([place]) Chloride 101 97 - 110 mmol/L [facility] ([place]) CO2 29 22 - 32 mmol/L [facility] ([place]) Anion gap 9 2 - 15 mmol/L [facility] ([place]) BUN 11 8 - 25 mg/dL [facility] ([place]) Creatinine 0.73 0.60 - 1.10 mg/dL [facility] ([place]) Glucose 93 70 - 199 mg/dL [facility] ([place]) [...] interpretive data was last revised 2017. Calcium 9.7 8.5 - 10.3 mg/dL [facility] ([place]) Bilirubin, total <0.2 0.1 - 1.2 mg/dL [facility] ([place]) Protein, pl 7.2 6.5 - 8.5 g/dL [facility] ([place]) Albumin 3.6 3.5 - 5.0 g/dL [facility] ([place]) Alk phos 100 40 - 130 Units/L [facility] ([place]) ALT 17 7 - 45 Units/L [facility] ([place]) AST 14 10 - 45 Units/L [facility] ([place]) Blood specimen (specimen) 05/30/2018 1:44 PM SQL PROGRAMMER 05/30/2018 1:48 PM SQL PROGRAMMER Narrative [facility] ([place]) - 05/30/2018 2:11 PM SQL PROGRAMMER us Kavitha Lange MD LAB BLOOD ORDERABLES Final Result [facility] ([place]) [address] [facility] Department [place] [address] * (ABNORMAL) CBC with auto differential (05/30/2018 1:44 PM SQL PROGRAMMER) WBC 8.4 3.8 - 9.9 K/cumm [facility] ([place]) Hgb 11.1(L) 11.9 - 15.5 g/dL [facility] ([place]) Hct 35.2(L) 35.6 - 45.5 % [facility] ([place]) Plt 259 150 - 400 K/cumm [facility] ([place]) MPV 10.6 9.1 - 12.3 fL [facility] ([place]) RBC 4.50 3.90 - 5.20 M/cumm [facility] ([place]) MCV 78.2(L) 81.3 - 96.4 fL [facility] ([place]) MCH 24.7(L) 27.1 - 33.3 pg [facility] ([place]) MCHC 31.5(L) 32.3 - 35.7 g/dL [facility] ([place]) RDW CV 15.4(H) 11.1 - 14.9 % [facility] ([place]) RDW SD 43.9 35.7 - 48.1 fL [facility] ([place]) NRBC abs 0.00 0.00 - 0.01 K/cumm [facility] ([place]) Blood specimen (specimen) 05/30/2018 1:44 PM SQL PROGRAMMER 05/30/2018 1:48 PM SQL PROGRAMMER Narrative [facility] ([place]) - 05/30/2018 1:50 PM SQL PROGRAMMER us Kavitha Lange MD LAB BLOOD ORDERABLES Final Result [facility] ([place]) [address] [facility] [place] [address] documented in this encounter Visit Diagnoses Diagnosis DUB (dysfunctional uterine bleeding)- Primary Other disorder of menstruation and other abnormal bleeding from female genital tract documented in this encounter Administered Medications Inactive Administered Medications - up to 3 most recent administrations Medication Order MAR Action Action Date Dose Rate Site HYDROcodone-acetaminophen (NORCO) 10-325 mg per tablet 1 tablet 1 tablet, oral, Once, On Fara 05/30/18 at 1420, For 1 dose, Indications: PainIndications:Pain Given 05/30/2018 2:23 PM SQL PROGRAMMER 1 tablet ondansetron ODT (ZOFRAN-ODT) disintegrating tablet 4 mg 4 mg, oral, Once, On Fara 05/30/18 at 1420, For 1 dose Given 05/30/2018 2:24 PM SQL PROGRAMMER 4 mg documented in this encounter Active and Recently Administered Medications Times are shown in SQL PROGRAMMER. Scheduled Medication Order 05/28/2018 05/29/2018 05/30/2018 HYDROcodone-acetaminophen (NORCO) 10-325 mg per tablet 1 tablet (COMPLETED) 1 tablet, oral, Once, On Fara 05/30/18 at 1420, For 1 dose, Indications: Pain 1423 (Given - Provid er: Page Alegria RN) ondansetron ODT (ZOFRAN-ODT) disintegrating tablet 4 mg (COMPLETED) 4 mg, oral, Once, On Fara 05/30/18 at 1420, For 1 dose 1424 (Given - Provid er: Page Alegria, EBEN) documented in this encounter Orders Nursing Count Last Ordered Date First Orde red Date MISCELLANEOUS NURSING CARE ORDER (SPECIFY) 1 05/30/2018 documented in this encounter Care Teams Cable Television Technician Relationship Specialty Start Date End Date No, Physician PCP - General 12/26/17 04/23/20 No, Physician 01/10/17 documented as of this encounter
--- OUTSIDE RECORDS SUMMARY | 2024-06-13 23:58 | XMS_ITS | Encounter Summary ---
Author Organization [facility] Healthcare Address [address] [place] [address] Care Team Providers Care Software Maintenance Engineer Name Role Phone No, Physician Unavailable No, Physician Primary Care Provider [phone] Reason for Visit * Reason Comments Ankle Pain Encounter Details Date Type Department Care Team (Late st Contact Info) Description 03/01/2020 6:28 PM CDT - 03/01/2020 7:36 PM CDT Emergency [facility] Emergency Department [address] [place] [id number] Acute right ankle pain (Primary Dx); Fall, initial encounter; Sprain of right ankle, unspecified ligament, initial encounter Discharge Disposition: Discharge to home or self care Social History Tobacco Use Types Packs/Day Years Used Date Smoking Tobacco: Never Smokeless Tobacco: Never Alcohol Use Standard Drinks/Week Comments No 0 (1 standard drink = 0.6 oz pur e alcohol) Comments No Sex and Gender Information Value Date Recorded Sex Assigned at Not on file 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 Gender Identity Not on file Sexual Orientation Not on file documented as of this encounter Last Filed Vital Signs Vital Sign Reading Time Taken Comments Blood Pressure 148/100 03/01/2020 6:33 PM CDT Pulse 125 03/01/2020 6:33 PM CDT Temperature 37.3 ??C (99.1 ??F) 03/01/2020 6:33 PM CD T Respiratory Rate 17 03/01/2020 6:33 PM CDT Oxygen Saturation 100% 03/01/2020 6:33 PM CDT Inhaled Oxygen Concentration - - Weight 140.6 kg (310 lb) 03/01/2020 6:33 PM CDT Height 165.1 cm (5' 5 ) 03/01/2020 6:33 PM CDT Body Mass Index 51.59 03/01/2020 6:33 PM CDT documented in this encounter Discharge Diagnoses Diagnosis Sprain of unspecified ligament of right ankle, initial encounter - SPRAIN OF UNSPECIFIED LIGAMENT OF RIGHT ANKLE, INITIAL ENCOUNTER Activity, walking, marching and hiking - ACTIVITY, WALKING, MARCHING AND HIKING Unspecified fall, initial encounter - UNSPECIFIED FALL, INITIAL ENCOUNTER Unspecified place or not applicable - UNSPECIFIED PLACE OR NOT APPLICABLE documented in this encounter Discharge Instructions * Discharge Instructions* Angela Dunn NP - 03/01/2020 7:33 PM CDT Use over the counter Tylenol and Motrin per manufacturers guidelines for relief of pain and fever. Follow up with [facility] referral or [facility]. * Attachments The following attachments cannot be sent through Care Everywhere. * SPRAIN, ANKLE, WITH X-RAY (PERSIAN) * JEOVANNY Wrap (Scottish) documented in this encounter Medications at Time of Discharge triamterene-hydroCHL OROthiazide 37.5-25 mg per tablet TK 1 T PO QD 01/14/2020 clonazePAM (KlonoPIN) 0.25 mg disintegrating tablet Take 1 tablet by mouth 2 (two) times a day 0 09/10/2018 3 ibuprofen (ADVIL,MOTRIN) 600 mg tablet Take 1 tablet (600 mg total) by mouth 3 (three) times a day Take with food. 30 tablet 09/25/2018 0 metoclopramide (REGLAN) 10 mg tablet Take 1 [...] documented in this encounter ED Notes * ShaunAngela Maciel, [facility] - 03/01/2020 7:27 PM CDT HPI Chief Complaint Patient presents with ??? Ankle Pain 20 y.o. year old female with PMHX Anemia Obesity; accompanied by presents to ED with c/o Ankle Pain Denies fever, chills, nausea, vomiting, diarrhea, SOB, CP, numbness, tingling. Patient states she was walking on Sunday and fell. Since she has worsening in pain and not able to walk well. No obvious deformity or discoloration noted. Pain states pain and swelling have not improved with rest. Pain with ambulation. No other complaint at that time. Patient History Patient Active Problem List Diagnosis Date Noted ??? Cervicitis 04/09/2019 ??? Biliary dyskinesia 05/17/2017 ??? BMI 45.0-49.9, adult ([facility]) 05/17/2017 ??? Epigastric pain 05/17/2017 Past Medical [...] Used Substance Use Topics ??? Alcohol use: No ??? Drug use: No Social History Social History Narrative ??? Not on file Review of Systems Review of Systems Constitutional: Negative. Negative for chills and fever. HENT: Negative. Negative for ear pain and sore throat. Eyes: Negative. Negative for pain and visual disturbance. Respiratory: Negative. Negative for cough and shortness of breath. Cardiovascular: Negative. Negative for chest pain and palpitations. Gastrointestinal: Negative. Negative for abdominal pain and vomiting. Genitourinary: Negative. Negative for dysuria and hematuria. Musculoskeletal: Negative for arthralgias and back pain. Right ankle pain Skin: Negative. Negative for color change and rash. Neurological: Negative. Negative for seizures and syncope. Psychiatric/Behavioral: Negative. All other systems reviewed and are negative. Physical Exam ED Triage Vitals [03/01/20 1833] Temp Pulse Resp BP SpO2 37.3 ??C (99.1 ??F) 125 17 148/100 100 % Temp src Heart Rate Source Patient Position BP Location FiO2 (%) Oral -- -- -- -- Physical Exam Vitals signs and nursing note reviewed. Constitutional: General: She is awake. She is not in acute distress. Appearance: Normal appearance. She is well-developed. She is not ill-appearing, toxic-appearing or diaphoretic. HENT: Head: Normocephalic and atraumatic. Right Ear: Hearing and external ear normal. Left Ear: Hearing and external ear normal. Nose: Nose normal. Mouth/Throat: Lips: [place]. Mouth: Mucous membranes are moist. Eyes: General: Lids are normal. Conjunctiva/sclera: Conjunctivae normal. Neck: Musculoskeletal: Full passive range of motion without pain, normal range of motion and neck supple. Trachea: Trachea and phonation normal. Cardiovascular: Rate and Rhythm: Normal rate and regular rhythm. Pulses: Normal pulses. No decreased pulses. Heart sounds: Normal heart sounds. No murmur. Pulmonary: Effort: Pulmonary effort is normal. No respiratory distress. Breath sounds: Normal breath sounds and air entry. No stridor, decreased air movement or transmitted upper airway sounds. No decreased breath sounds, wheezing, rhonchi or rales. Abdominal: General: Bowel sounds are normal. There is no distension. Palpations: Abdomen is soft. Tenderness: There is no abdominal tenderness. There is no guarding. Musculoskeletal: Right ankle: She exhibits decreased range of motion and swelling. Tenderness. Comments: Right ankle-No erythema. No bruising. swelling. No warmth. anteriorTenderness to palpation. No crepitus with movement. decrease range of motion. pain with passive/active ROM. Normal strength. Distal pulses in tact. Negative talar tilt test. Negative anterior drawer test Distal sensation intact, capillary refill less than 2 seconds, pedal pulse 2+. Skin: General: Skin is warm and dry. Capillary Refill: Capillary refill takes less than 2 seconds. Neurological: General: No focal deficit present. Mental Status: She is alert, oriented to person, place, and time and easily aroused. Psychiatric: Behavior: Behavior is cooperative. [facility] ED Course as of Mar 01 1933 Time: 03/01 1926 Comment: Following application of jeovanny warp, ankle brace and crutches, neurovascular checked and found to be intact. By: Angela Dunn NP Time: 03/01 1927 Comment: Discussed x-ray results with patient. Advised to use Tylenol and Motrin for relief of fever and pain, to follow up with PMD for further evaluation and treatment. Pt verbalized understanding.All questions answered at this time. By: Angela Dunn NP Final diagnoses: Acute right ankle pain Fall, initial encounter Sprain of right ankle, unspecified ligament, initial encounter Angela Dunn NP 03/01/201932 Cosigned by Carlos Awan MD at 03/01/2020 8:52 PM CDT * Jenniffer Baez RN - 03/01/2020 6:32 PM CDT Patient presents to the ed with c.o. right ankle injury. Patient states she was walking on Sundayand fell. Since she has worsening in pain and not able to walk well. No obvious deformity or discoloration noted. documented in this encounter Plan of Treatment Not on file documented as of this encounter Procedures Procedure Name Priority Date/Time Associated Diagnosis Comments XR ANKLE RIGHT 3 OR MORE VIEWS ED 03/01/2020 6:48 PM CDT documented in this encounter Results * XR Ankle Right 3 or More Views (03/01/2020 6:48 PM CDT) Anatomical Region Laterality Modality Lower Extremities, Ankle Right Compute d Radiography 03/01/2020 6:44 PM CDT Impressions 03/01/2020 7:07 PM CDT ?? No acute osseous abnormality. THIS IS AN ELECTRONICALLY VERIFIED FINAL REPORT 03/01/2020 7:03 PM - Electronically signed by Chhaya Espitia AB: AB D: ??03/01/2020 7:03 PM T: ??03/01/2020 7:03 PM Report ID: [id number] Reading Location: ??[id number] Narrative 03/01/2020 7:07 PM CDT [facility] ?Imaging Result Name: MAEVE ROSS ? Ordering Phys: ANGELA DUNN Age: 20 ?Date of : 2000 ? Accession Number: [id number] Date of Service: 03/01/2020 ??Gender: F EXAM DESCRIPTION: ?? XR ANKLE RIGHT 3 OR MORE VIEWS REASON FOR STUDY: ?? 3 days ago fall ankle painDuration: 3 days TECHNIQUE: ?? AP, lateral, and oblique radiographic views acquired of the right ankle. COMPARISON: ?? Single view of the right ankle 04/25/2011 ??BONES/JOINTS: ??No acute fracture, malalignment or osseous abnormalities. Joint spaces are maintained. SOFT TISSUES: ??Unremarkable. OTHER: ??No other significant finding. Procedure Note Chhaya Espitia MD - 03/01/2020 [facility] Imaging Result Name: MAEVE ROSS Ordering Phys: ANGELA DUNN Age: 20 Date of : 2000 Accession Number: [id number] Date of Service: 03/01/2020 Gender: F EXAM DESCRIPTION: XR ANKLE RIGHT 3 OR MORE VIEWS REASON FOR STUDY: 3 days ago fall ankle painDuration: 3 days TECHNIQUE: AP, lateral, and oblique radiographic views acquired of theright ankle. COMPARISON: Single view of the right ankle 04/25/2011 BONES/JOINTS: No acute fracture, malalignment or osseous abnormalities. Joint spaces are maintained. SOFT TISSUES: Unremarkable. OTHER: No other significant finding. IMPRESSION: No acute osseous abnormality. THIS IS AN ELECTRONICALLY VERIFIED FINAL REPORT 03/01/2020 7:03 PM - Electronically signed by Chhaya Espitia AB: Report ID: [id number] Reading Location: [place] [address] Angela Dunn [employer] IMG XR PROCEDURES Final Res ult documented in this encounter Visit Diagnoses Diagnosis Acute right ankle pain- Primary Fall, initial encounter Sprain of right ankle, unspecified ligament, initial encounter documented in this encounter Orders General Supply Count Last Ordered Date First Or dered Date ANKLE BRACE ([id number]) 1 03/01/2020 [employer] ([id number]) 1 03/01/2020 Nursing Count Last Ordered Date First Orde red Date APPLY JEOVANNY WRAP 1 03/01/2020 documented in this encounter Care Teams Software Maintenance Engineer Relationship Specialty Start Date End Date No, Physician PCP - General 12/26/17 04/23/20 No, Physician 01/10/17 documented as of this encounter
--- OUTSIDE RECORDS SUMMARY | 2024-06-13 23:58 | XMS_ITS | Encounter Summary ---
Author Organization [facility] Healthcare Address [address] [place] [address] Care Team Providers Care Event Promotions Coordinator Name Role Phone No, Physician Unavailable No, Physician Primary Care Provider [phone] Reason for Visit * Reason Comments Heavy Menstruation Encounter Details Date Type Department Care Team (Late st Contact Info) Description 05/28/2018 10:05 AM TACK DRILLER - 05/28/2018 12:21 PM TACK DRILLER Emergency [facility] Emergency Department [address] [place] [address] Karl Mandel MD 1 [facility] [place] [address] Abnormal vaginal bleeding (Primary Dx) Discharge Disposition: Discharge to home or self care Social History Tobacco Use Types Packs/Day Years Used Date Smoking Tobacco: Never Smokeless Tobacco: Never Alcohol Use Standard Drinks/Week Comments No 0 (1 standard drink = 0.6 oz pur e alcohol) Comments No Sex and Gender Information Value Date Recorded Sex Assigned at Not on file Legal Sex Female 8:56 PM TACK DRILLER Gender Identity Not on file Sexual Orientation Not on file documented as of this encounter Last Filed Vital Signs Vital Sign Reading Time Taken Comments Blood Pressure 97/56 05/28/2018 11:30 AM TACK DRILLER Pulse 71 05/28/2018 11:30 AM TACK DRILLER Temperature 36.6 ??C (97.8 ??F) 05/28/2018 10:[address] Respiratory Rate 18 05/28/2018 11:30 AM TACK DRILLER Oxygen Saturation 98% 05/28/2018 11:30 AM TACK DRILLER Inhaled Oxygen Concentration - - Weight 136.1 kg (300 lb) 05/28/2018 10:19 AM TACK DRILLER Height 165.1 cm (5' 5 ) 05/28/2018 10:19 AM TACK DRILLER Body Mass Index 49.92 05/28/2018 10:19 AM TACK DRILLER documented in this encounter Discharge Instructions * Discharge Instructions* Karl Mandel MD - 05/28/2018 12:11 PM TACK DRILLER For Pain Control: Tylenol 500 mg every 6 hr & Aleve/naproxen 440 mg twice a day OR Ibuprofen 600 mg every 6 hr Please return to the ED if fevers, change in abdominal pain, vaginal discharge other than blood, any new symptoms or for any other concerns. DRILLER * Attachments The following attachments cannot be sent through Care Everywhere. * Dysfunctional Uterine Bleeding (AfterCare(R) Instructions(ER/ED)) ([place]) documented in this encounter Medications at Time of Discharge ibuprofen (ADVIL,MOTRIN) 800 mg tablet Take 1 tablet (800 mg total) by mouth 3 (three) times a day. 21 tablet 12/05/2017 09/25/2018 JUNE FE 24 1 mg-20 mcg (24)/75 mg (4) per tablet TK 1 T PO QD 3 05/15/201809/25 documented as of this encounter Discharge Disposition Disposition Code Departure Means Destination Discharge to home or self care documented in this encounter ED Notes * Karl Mandel MD - 05/28/2018 10:23 AM CST HPI Chief Complaint Patient presents with ??? Heavy Menstruation 18-year-old female with limited past medical history the presents today for having menstruation. 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 She is unable to tell me the name of the control she is taking but believes that this single hormonal pill. Since starting the pill she had light bleeding for the last 8 days. She states that yesterday evening bleeding intensified to the point where she was exchanging tampon multiple times an hour. This morning she has passed several large clots and has gone through 2 pads. Additionally last night she started with lower abdominal cramping that is radiating to her back; this is also progressed. She d enies any other vaginal complaints at this time and no dysuria. She states she is on control for and has not had this issue. She did take her OCP yesterday but has not taken it today. She denies any fevers, chest pain, shortness of breath or rash. She does state at times she feels a little lig htheaded but not dizzy. Patient History Patient Active Problem List Diagnosis Date Noted ??? Biliary dyskinesia 05/17/2017 ??? BMI 45.0-49.9, adult ([facility]) 05/17/2017 ??? Epigastric pain 05/17/2017 Past Medical [...] tobacco: Never Used ??? Alcohol use No Social History Social History Narrative ??? No narrative on file Review of Systems Review of Systems All other systems reviewed and are negative. Physical Exam ED Triage Vitals [05/28/18 1019] Temp Pulse Resp BP SpO2 36.6 ??C (97.8 ??F) 103 20 149/92 98 % Temp src Heart Rate Source Patient Position BP Location FiO2 (%) Temporal -- -- -- -- Physical Exam Constitutional: She appears well-developed and well-nourished. No distress. HENT: Head: Atraumatic. Mouth/Throat: Oropharynx is clear and moist. Eyes: Conjunctivae and EOM are normal. Neck: Normal range of motion. Cardiovascular: Normal rate, regular rhythm, normal heart sounds and intact distal pulses. Pulmonary/Chest: Effort normal and breath sounds normal. No respiratory distress. Abdominal: Soft. Bowel sounds are normal. She exhibits no distension. There is tenderness (Suprapubic). There is no rebound and no guarding. Genitourinary: Cervix exhibits discharge (Blood). Cervix exhibits no friability. There is bleeding in the vagina. No tenderness in the vagina. Musculoskeletal: Normal range of motion. Neurological: She is alert. Skin: Skin is warm. Capillary refill takes less than 2 seconds. She is not diaphoretic. Psychiatric: She has a normal mood and affect. Nursing note and vitals reviewed. MDM MDM Number of Diagnoses or Management Options Diagnosis management comments: 1-year-old female with limited past medical history presents today for dysfunctional uterine bleeding after starting the control. Bleeding is likely secondary to starting her new OCP. Given the volume of bleeding I feel about her testing appropriate including a CBC and coagulation panel. Additionally get a UA and a urine bHCG. Also consider vaginal swabs if other abnormal findings are found on exam. ED Course as of May 28 1213 Time: 05/28 1134 Comment: Labs reassuring at this time no white blood cell count no anemia UA looks contaminated andnot infectious at this time. Negative test. By: Karl Mandel MD Time: 05/28 121 Comment: Discussed findings with patient she was reassured. She is also feeling better at this time. Physical exam is reassuring no abnormal findings in the vaginal vault other than blood which was expected. By: Karl Mandel MD Time: 05/28 121 Comment: Discussed with patient stopping her oral contraceptive pill at this time issues agreement.Advised the bleeding could continue up to 10 days to 2 weeks and she should follow up with her Ob around that time for further evaluation and treatment options.All questions answered. We had an extensive conversation regarding return precautions and need for follow up prior to disposition. By: Karl Mandel MD Abnormal vaginal bleeding Karl Mandel MD 05/28/18 1213 DRILLER * Afshan Espino RN - 05/28/2018 10:17 AM CST Patient started control pills 9 days ago. Patient states she has had light bleeding every since but yesterday around 5pm started passing large blot clots and bleeding increased. Patient c/o feeling bloated stating it feels like there's a bowling ball on my stomach . Patient also c/o back pain. Patient states she had to use multiple tampons an hour yesterday and has gone through 2 pads today. DRILLER documented in this encounter Plan of Treatment Not on file documented as of this encounter Procedures Procedure Name Priority Date/Time Associated Diagnosis Comments URINALYSIS AND REFLEX TO MICROSCOPIC AND CULTURE STAT 05/28/2018 10:47 AM TACK DRILLER HCG, URINE, QUALITATIVE STAT 05/28/2018 10:47 AM TACK DRILLER URINALYSIS, MICROSCOPIC ONLY STAT 05/28/2018 10:47 AM TACK DRILLER DIFFERENTIAL AUTO STAT 05/28/2018 10: 36 AM TACK DRILLER CBC WITH AUTO DIFFERENTIAL STAT 05/28/2018 10:36 AM TACK DRILLER PROTIME-INR STAT 05/28/2018 10:36 AM TACK DRILLER documented in this encounter Results * (ABNORMAL) Urinalysis, microscopic only (05/28/2018 10:47 AM TACK DRILLER) WBC, ur 0-5 0 - 5 /HPF [facility]) RBC, ur >50(A) 0 - 2 /HPF [facility]) Epithelial cells, squamous, ur 1-5 0 - 5 /HPF [facility]) Bacteria, ur Negative [facility]) Hyaline casts, ur 1-5 0 - 10 /LPF [facility]) Urine 05/28/2018 10:4 7 AM TACK DRILLER 05/28/2018 10:50 AM TACK DRILLER Narrative [facility]) - 05/28/2018 10:55 AM TACK DRILLER us Karl Mandel MD LAB URINE ORDERABLES Final R esult Performing Organization Address [facility]/ZIP Co de Phone Number [facility] ([place]) [address] [place] [address] [facility] [place] [address] * hCG, urine, qualitative (05/28/2018 10:47 AM TACK DRILLER) HCG, ur Negative Negative [facility]) Urine 05/28/2018 10:4 7 AM TACK DRILLER 05/28/2018 10:54 AM TACK DRILLER Narrative [facility] - 05/28/2018 10:57 AM TACK DRILLER us Karl Mandel MD LAB URINE ORDERABLES Final R esult Performing Organization Address [facility] Co de Phone Number [facility] ([place]) [address] [place] [address] Department [place] [address] * (ABNORMAL) Urinalysis reflex to microscopic and culture Urine (05/28/2018 10:47 AM TACK DRILLER) Color, ur Other(A) Yellow [facility]) Clarity, ur Cloudy(A) Clear [facility] ([place]) Specific gravity, ur 1.019 1.010 - 1.025 [facility]) pH, urine 6.0 [facility]) Protein, ur ql 1+(A) Negative [facility]) Glucose, ur ql Negative Negative [facility]) Ketones, ur Negative Negative [facility]) Bilirubin, ur Negative Negative [facility]) Blood, ur 3+(A) Negative [facility]) Urobilinogen, ur 0.2 mg/dL [facility]) Nitrite, ur Positive(A) Negative [facility]) Leukocyte esterase, ur 1+(A) Negative [facility]) Urine 05/28/2018 10:4 7 AM TACK DRILLER 05/28/2018 10:50 AM TACK DRILLER Narrative [facility] - 05/28/2018 10:53 AM TACK DRILLER ?? Urine pH is affected by diet, medications, systemic acid-base disturbances, and renal tubular function. ??pH may affect urinary stone formation. ??For example, urine pH below 6.0 may help reduce the tendency for calcium phosphate stones and pH greater than 6.0 may reduce the tendency for uric acid stone formation. Source: [employer]. Last revised 06-14-2017 us Karl Mandel MD LAB MICROBIOLOGY - GENERAL O RDERABLES Final Result [facility] ([place]) 1 [facility] Department [place] [address] * Differential, auto (05/28/2018 10:36 AM TACK DRILLER) Neutrophil abs 5.7 1.7 - 6.5 K/cumm [facility]) Imm gran abs 0.0 0.0 - 0.1 K/cumm [facility]) Lymphocyte abs 2.0 0.8 - 3.3 K/cumm [facility]) Monocyte abs 0.4 0.2 - 0.8 K/cumm [facility]) Eosinophil abs 0.0 0.0 - 0.5 K/cumm [facility] ([place]) Basophil abs 0.0 0.0 - 0.1 K/cumm [facility]) Neutrophil pct 69.2 % [facility] ([place]) Comment: Interpretive [...] was last revised on 2017. Lymphocyte pct 24.5 % [facility]) Comment: Interpretive Data Percent cell count reference ranges are not reported, since discordance with absolute values may lead to misinterpretation of CBC data. Current Interpretive Data was last revised on 2017. Monocyte pct 4.9 % [facility]) Comment: Interpretive Data Percent cell count reference ranges are not reported, since discordance with absolute values may lead to misinterpretation of CBC data. Current Interpretive Data was last revised on 2017. Eosinophil pct 0.6 % [facility] Comment: Interpretive Data Percent cell count reference ranges are not reported, since discordance with absolute values may lead to misinterpretation of CBC data. Current Interpretive Data was last revised on 2017. Basophil pct 0.4 % [facility]) Comment: Interpretive Data Percent cell count reference ranges are not reported, since discordance with absolute values may lead to misinterpretation of CBC data. Current Interpretive Data was last revised on 2017. Blood specimen (specimen) 05/28/2018 10:36 AM TACK DRILLER 05/28/2018 10:38 AM TACK DRILLER Narrative [facility] ([place]) - 05/28/2018 10:41 AM TACK DRILLER us Karl Mandel MD LAB BLOOD ORDERABLES Final R esult [facility] [place]) 1 [facility] Department [place] [address] * Protime-INR (05/28/2018 10:36 AM TACK DRILLER) PT 11.8 9.5 - 13.0 sec [facility] ([place]) INR 1.04 0.90 - 1.20 [facility] ([place]) Comment: Interpretive Data Recommended ranges for Protime INR: 2.0 - 3.0 Most indications for Warfarin therapy (e.g. Treatment of DVT, PE, bioprosthetic valve replacement, prophylaxis venous thrombosis, atrial fibrillation). 2.5 - 3.5 Mechanical mitral valve or dual mechanical mitral and Aortic valve replacement. Current Interpretive Data was last revised on 2015. Blood specimen (specimen) 05/28/2018 10:36 AM TACK DRILLER 05/28/2018 10:38 AM TACK DRILLER Narrative [facility] ([place]) - 05/28/2018 10:50 AM TACK DRILLER us Karl Mandel MD LAB BLOOD ORDERABLES Final R esult [facility]) 1 [facility] Department [place] [address] * (ABNORMAL) CBC with auto differential (05/28/2018 10:36 AM TACK DRILLER) WBC 8.2 3.8 - 9.9 K/cumm [facility]) Hgb 11.4(L) 11.9 - 15.5 g/dL [facility]) Hct 36.2 35.6 - 45.5 % [facility]) Plt 271 150 - 400 K/cumm [facility]) MPV 11.3 9.1 - 12.3 fL [facility]) RBC 4.69 3.90 - 5.20 M/cumm [facility]) MCV 77.2(L) 81.3 - 96.4 fL [facility]) MCH 24.3(L) 27.1 - 33.3 pg [facility]) MCHC 31.5(L) 32.3 - 35.7 g/dL [facility]) RDW CV 15.4(H) 11.1 - 14.9 % [facility] RDW SD 43.2 35.7 - 48.1 fL [facility]) NRBC abs 0.00 0.00 - 0.01 K/cumm [facility] ([place]) Blood specimen (specimen) 05/28/2018 10:36 AM TACK DRILLER 05/28/2018 10:38 AM TACK DRILLER Narrative [facility] ([place] - 05/28/2018 10:41 AM TACK DRILLER us Karl Mandel MD LAB BLOOD ORDERABLES Final R esult [facility] ([place]) 1 [facility] Department [place] [address] documented in this encounter Visit Diagnoses Diagnosis Abnormal vaginal bleeding- Primary Other specified noninflammatory disorder of vagina documented in this encounter Administered Medications Inactive Administered Medications - up to 3 most recent administrations Medication Order MAR Action Action Date Dose Rate Site ketorolac (TORADOL) injection 15 mg 15 mg, intravenous, Once, On Sun05/28/18 at 1023, For 1 dose, For Adult IV push, administer over 15 seconds, Indications: PainIndications:Pain Given 05/28/2018 10:44 AM TACK DRILLER 15 mg documented in this encounter Discontinued Medications Medication Sig Discontinue Reason Start Date End Da te butalbital-acetaminophe n-caffeine (FIORICET, ESGIC) 50-325-40 mg per tablet Take 1 tablet by mouth every 4 (four) hours as needed for headaches (1 tablet for mild to moderate pain or 2 tablets for severe pain.). Do not exceed 6 tablets/day. 12/26/2017 05/28/2018 raNITIdine (ZANTAC) 150 mg tablet Take 1 tablet (150 mg total) by mouth nightly as needed for heartburn. 02/04/2018 05/28/2018 doxycycline (VIBRAMYCIN) 100 mg capsule Take 1 tablet/capsule (100 mg total) by mouth 2 (two) times a day. 02/04/2018 05/28/2018 documented as of this encounter Historical Medications * This list may reflect changes made after this encounter. 1 mg-20 mcg (24)/75 mg (4) per tablet TK 1 T PO QD 3 05/15/2018 09/25/2018 added in this encounter Active and Recently Administered Medications Times are shown in TACK DRILLER. Scheduled Medication Order 05/26/2018 05/27/2018 05/28/2018 ketorolac (TORADOL) injection 15 mg (COMPLETED) 15 mg, intravenous, Once, On Sun05/28/18 at 1023, For 1 dose, For Adult IV push, administer over 15 seconds, Indications: Pain 1044 (Given - Provid er: Afshan Espino RN) documented in this encounter Orders IV Count Last Ordered Date First Orde red Date INSERT PERIPHERAL IV 1 05/28/2018 SALINE LOCK IV 1 05/28/2018 documented in this encounter Care Teams Event Promotions Coordinator Relationship Specialty Start Date End Date No, Physician PCP - General 12/26/17 04/23/20 No, Physician 01/10/17 documented as of this encounter
--- OUTSIDE RECORDS SUMMARY | 2024-06-13 23:58 | XMS_ITS | Encounter Summary ---
Author Organization [facility] Healthcare Address [address] [place] [address] Care Team Providers Care Patrol Commander Name Role Phone No, Physician Unavailable No, Physician Primary Care Provider Reason for Visit * Reason Comments Abdominal Pain Back Pain Encounter Details Date Type Department Care Team (Late st Contact Info) Description 09/25/2018 2:29 AM CDT - 09/25/2018 10:28 AM CDT Emergency [facility] Emergency Department [address] [place] [address] Jerry Cee MD [address] [place] [address] Sagar Roque MD [address] [place] [address] Colitis without complication (Primary Dx); Cyst of ovary, unspecified laterality Discharge Disposition: Discharge to home or self care Social History Tobacco Use Types Packs/Day Years Used Date Smoking Tobacco: Never Smokeless Tobacco: Never Alcohol Use Standard Drinks/Week Comments No 0 (1 standard drink = 0.6 oz pur e alcohol) Comments Unknown Sex and Gender Information Value Date Recorded Sex Assigned at Not on file Legal Sex Female 8:56 PM [employer] Gender Identity Not on file Sexual Orientation Not on file documented as of this encounter Last Filed Vital Signs Vital Sign Reading Time Taken Comments Blood Pressure 122/67 09/25/2018 9:47 AM CDT Pulse 82 09/25/2018 9:47 AM CDT Temperature 36.5 ??C (97.7 ??F) 09/25/2018 9:47 AM CD T Respiratory Rate 15 09/25/2018 9:47 AM CDT Oxygen Saturation 96% 09/25/2018 9:47 AM CDT Inhaled Oxygen Concentration - - Weight 136.1 kg (300 lb) 09/25/2018 2:41 AM CDT Height 165.1 cm (5' 5 ) 09/25/2018 2:41 AM CDT Body Mass Index 49.92 09/25/2018 2:41 AM CDT documented in this encounter Discharge Instructions * Attachments The following attachments cannot be sent through Care Everywhere. * Gastroenteritis (AfterCare(R) Instructions(ER/ED)) (Turkish) * Ovarian Cyst (AfterCare(R) Instructions(ER/ED)) (Turkish) documented in this encounter Medications at Time of Discharge levoFLOXacin (LEVAQUIN) 500 mg tablet Take 1 tablet (500 mg total) by mouth daily for 5 days 5 tablet 09/25/2018 9 metroNIDAZOLE (FLAGYL) 500 mg tablet Take 1 tablet (500 mg total) by mouth 2 (two) times a day for 14 days 28 tablet 09/25/2018 9 clonazePAM (KlonoPIN) 0.25 mg disintegrating tablet Take [...] Refills Last Filled Start Date End Date levoFLOXacin (LEVAQUIN) 500 mg tablet Take 1 tablet (500 mg total) by mouth daily for 5 days 5 tablet 09/25/2018 9 metroNIDAZOLE (FLAGYL) 500 mg tablet Take 1 tablet (500 mg total) by mouth 2 (two) times a day for 14 days 28 tablet 09/25/2018 9 metoclopramide (REGLAN) 10 mg tablet Take 1 tablet q6-8 hrs for naueas, take with 25 mg benadryl 15 tablet 09/25/2018 3 ibuprofen (ADVIL,MOTRIN) 600 mg tablet Take 1 tablet (600 mg total) by mouth 3 (three) times a day Take with food. 30 tablet 09/25/2018 0 metoclopramide (REGLAN) 10 mg tablet Take 1 tablet q6-8 hrs for naueas, take with 25 mg benadryl 15 tablet 09/25/2018 9 traMADol (ULTRAM) 50 mg tablet Take 1-2 tablets (50-100 mg total) by mouth every 6 (six) hours as needed for pain (1 tablet for mild to moderate pain or 2 tablets for severe pain) 20 tablet 09/25/2018 3 ibuprofen (ADVIL,MOTRIN) 600 mg tablet Take 1 tablet (600 mg total) by mouth 3 (three) times a day Take with food. 30 tablet 09/25/2018 9 documented in this encounter Discharge Disposition Disposition Code Departure Means Destination Discharge to home or self care documented in this encounter ED Notes * Jerry Cee MD - 09/25/2018 2:44 AM CDT HPI Chief Complaint Patient presents with ??? Abdominal Pain ??? Back Pain Patient is a 18-year-old female who presents emergency room complaining of lower abdominal pain nausea vomiting and fever. Patient states pain seems worse on the left than right. Patient had prior cholecystectomy. Patient denies any diarrhea. Patient also denies any urinary symptoms or flank pain. There is no respiratory complaints or chest pain. There is no aggravating or alleviating factors. There is no other complaints of further review of symptoms negative Patient History Patient Active Problem List Diagnosis Date Noted ??? Biliary dyskinesia 05/17/2017 ??? BMI 45.0-49.9, adult ([facility]CC) 05/17/2017 ??? Epigastric pain 05/17/2017 Past Medical [...] are negative. Physical Exam ED Triage Vitals [09/25/18 0241] Temp Pulse Resp BP SpO2 38.4 ??C (101.2 ??F) (!) 127 18 119/92 97 % Temp src Heart Rate Source Patient Position BP Location FiO2 (%) Temporal -- -- -- -- Physical Exam Constitutional: She is oriented to person, place, and time. She appears well- developed and well-nourished. No distress. HENT: Head: Normocephalic and atraumatic. Right Ear: External ear normal. Left Ear: External ear normal. Mouth/Throat: Oropharynx is clear and moist. Eyes: Pupils are equal, round, and reactive to light. Conjunctivae and EOM are normal. Neck: Normal range of motion. Neck supple. Cardiovascular: Normal rate, regular rhythm, normal heart sounds and intact distal pulses. Pulmonary/Chest: Effort normal and breath sounds normal. No respiratory distress. Abdominal: Soft. Bowel sounds are normal. She exhibits no distension. There is no guarding. Tender left lower quadrant, no CVA tenderness Genitourinary: Genitourinary Comments: Patient states she is ???spotting?? Musculoskeletal: Normal range of motion. Neurological: She is alert and oriented to person, place, and time. Skin: Skin is warm and dry. Capillary refill takes less than 2 seconds. She is not diaphoretic. Psychiatric: She has a normal mood and affect. Nursing note and vitals reviewed. MDM MDM No diagnosis found. Jerry Cee MD 09/25/18 0552 * Lydia Briones, EBEN - 09/25/2018 2:35 AM CDT Ambulatory to ED with c/o low abd pain and low back pain which pt reports began tonight, accompanied by N/V which she states has been ongoing for 2 days. Pt denies diarrhea. Verbalizes concern for due to recent unprotected sex. Denies concern for STD. documented in this encounter Plan of Treatment Not on file documented as of this encounter Procedures Procedure Name Priority Date/Time Associated Diagnosis Comments CT ABDOMEN PELVIS W CONTRAST ED 09/25/2018 4:30 AM CDT SEPSIS LACTATE WITH REFLEX STAT 09/25/2018 3:13 AM CDT EGFR STAT 09/25/2018 3:13 AM CDT DIFFERENTIAL AUTO STAT 09/25/2018 3:1 3 AM CDT CBC WITH AUTO DIFFERENTIAL STAT 09/25/2018 3:13 AM CDT BLOOD CULTURE STAT 09/25/2018 3:13 AM CDT LIPASE STAT 09/25/2018 3:13 AM CDT COMPREHENSIVE METABOLIC PANEL STAT 09/25/2018 3:13 AM CDT BLOOD CULTURE STAT 09/25/2018 3:05 AM CDT N.GONORRHOEAE/C.TRACHO MATIS AMPLIFICATION- GENITAL, URINE STAT 09/25/2018 2:55 AM CDT INFLUENZA A/B AND RSV PCR STAT 09/25/2018 2:55 AM CDT URINALYSIS AND REFLEX TO MICROSCOPIC AND CULTURE STAT 09/25/2018 2:55 AM CDT TRICHOMONAS ANTIGEN Routine 09/25/2018 2 :55 AM CDT HCG, URINE, QUALITATIVE STAT 09/25/2018 2:55 AM CDT URINALYSIS, MICROSCOPIC ONLY STAT 09/25/2018 2:55 AM CDT documented in this encounter Results * CT Abdomen Pelvis W Contrast (09/25/2018 4:30 AM CDT) Anatomical Region Laterality Modality Body N/A Computed Tomogra phy 09/25/2018 7:35 AM CDT Impressions 09/25/2018 7:52 AM CDT 1. ??NO ACUTE INTRA-ABDOMINAL OR INTRAPELVIC ABNORMALITY.. 2. ??CHOLECYSTECTOMY. Electronically signed by: Chris Hutchison M.D. Narrative 09/25/2018 7:[address] ABDOMEN PELVIS W CONTRAST HISTORY: ??Lower abdominal pain with fever and emesis. ??Elevated white blood cell count. ??Cholecystectomy. TECHNIQUE: Serial axial images of the abdomen and pelvis obtained with 100 mL Ioversol. COMPARISON: 02/04/2018 FINDINGS: Lung bases are clear. The abdominal aorta is normal in caliber. Liver is normal. ??Gallbladder has been removed. Spleen is normal. Kidneys are normal. Adrenal glands are normal. Pancreas is normal. There are no dilated loops of small or large bowel or inflammatory bowel changes. ??There are a few sigmoid colon diverticula. ??There is mild to moderate fecal material in the transverse and right colon. Appendix is normal. There is a 12 mm right ovarian cyst. ??Cervical cyst are noted measuring up to 10 mm. There is no free air, free fluid or adenopathy. There are no acute osseous abnormalities. Procedure Note Chris Hutchison MD - 09/25/2018 CT ABDOMEN PELVIS W CONTRAST HISTORY: Lower abdominal pain with fever and emesis. Elevated white blood cell count. Cholecystectomy. TECHNIQUE: Serial axial images of the abdomen and pelvis obtained with 100 mL Ioversol. COMPARISON: 02/04/2018 FINDINGS: Lung bases are clear. The abdominal aorta is normal in caliber. Liver is normal. Gallbladder has been removed. Spleen is normal. Kidneys are normal. Adrenal glands are normal. Pancreas is normal. There are no dilated loops of small or large bowel or inflammatory bowel changes. There are a few sigmoid colon diverticula. There is mild to moderate fecal material in the transverse and right colon. Appendix is normal. There is a 12 mm right ovarian cyst. Cervical cyst are noted measuring up to 10 mm. There is no free air, free fluid or adenopathy. There are no acute osseous abnormalities. IMPRESSION: 1. NO ACUTE INTRA-ABDOMINAL OR INTRAPELVIC ABNORMALITY.. 2. CHOLECYSTECTOMY. Electronically signed by: Chris Hutchison M.D. us Jerry Cee MD IMG CT PROCEDURES Final Resul t * eGFR (09/25/2018 3:13 AM CDT) eGFR 109 mL/min/1.7 3 m2 [facility] ([place]) Comment: Interpretive Data Reference Interval Normal ?>/= 90 mL/min/1.73m2 Mildly decreased* ? 60 - 89 mL/min/1.73m2 Mildly to moderately decreased ?45 - 59 mL/min/1.73m2 Moderately to severely decreased ??30 - 44 mL/min/1.73m2 Severely decreased ?15 - 29 mL/min/1.73m2 Kidney Failure ?< 15 ??mL/min/1.73m2 *Relative to young adult level If -[place] multiply value by 1.16. Estimated glomerular filtration [...] was last reviewed 2015. Blood specimen (specimen) 09/25/2018 3:13 AM CDT 09/25/2018 3:49 AM CDT Narrative [facility] ([place]) - 09/25/2018 4:03 AM CDT us Jerry Cee MD LAB BLOOD ORDERABLES Final Re sult [facility] ([place]) 1 [facility] Department [place] [address] * (ABNORMAL) Differential, auto (09/25/2018 3:13 AM CDT) Neutrophil abs 9.0(H) 1.7 - 6.5 K/cumm [facility] ([place]) Imm gran abs 0.0 0.0 - 0.1 K/cumm [facility] ([place]) Lymphocyte abs 1.1 0.8 - 3.3 K/cumm [facility] ([place]) Monocyte abs 0.3 0.2 - 0.8 K/cumm [facility] ([place]) Eosinophil abs 0.0 0.0 - 0.5 K/cumm [facility] ([place]) Basophil abs 0.0 0.0 - 0.1 K/cumm [facility] ([place]) Neutrophil pct 85.8 % [facility] ([place]) Comment: Interpretive [...] was last revised on 2017. Lymphocyte pct 10.2 % [facility] ([place]) Comment: Interpretive Data Percent cell count reference ranges are not reported, since discordance with absolute values may lead to misinterpretation of CBC data. Current Interpretive Data was last revised on 2017. Monocyte pct 3.2 % [facility] ([place]) Comment: Interpretive Data Percent cell count reference ranges are not reported, since discordance with absolute values may lead to misinterpretation of CBC data. Current Interpretive Data was last revised on 2017. Eosinophil pct 0.1 % [facility] ([place]) Comment: Interpretive [...] last revised on 2017. Blood specimen (specimen) 09/25/2018 3:13 AM CDT 09/25/2018 3:21 AM CDT Narrative [facility] ([place]) - 09/25/2018 3:24 AM CDT Jerry Cee MD LAB BLOOD ORDERABLES Final Re sult Performing Organization Address City/[facility]/ZIP Co de Phone Number [facility] ([place]) 1 [facility] [place] [address] * Sepsis Lactate w/ Reflex (09/25/2018 3:13 AM CDT) Sepsis Lactate 1.4 0.7 - 2.0 mmol/L [facility] ([place]) Blood specimen (specimen) 09/25/2018 3:13 AM CDT 09/25/2018 3:21 AM CDT Narrative [facility] ([place]) - 09/25/2018 3:31 AM CDT us Jerry Cee MD LAB BLOOD ORDERABLES Final Re sult [facility] ([place]) 1 [facility] [place] [address] * Blood culture Blood Peripheral (09/25/2018 3:13 AM CDT) Report Final Report: No growth [facility] ([place]) Comment:Testing performed by : [facility], [address] [place]., [address] Blood specimen (specimen) (Peripheral) 09/25/2018 3:13 AM CDT 09/25/2018 6:35 AM CDT Narrative [facility] ([place]) - 09/30/2018 7:01 AM CDT From a different site than #1. Draw Blood cultures before administration of Antibiotics 1. Blood cultures are incubated for 5 days on a continuously monitored blood culture system. The first report of a negative culture is issued within 24 hours of receipt of the specimen in the laboratory. 2. Positive culture results are reported as soon as they are detected. 3. The most important factor for detection of microbes in the setting of bloodstream infection is the volume of blood submitted for culture. Failure to collect an optimal blood volume can result in false negative blood cultures. For pediatric patients, the recommended blood volume to collect is 1 mL of blood per year of patient age (up to 20 mL) per blood culture set. For adult patients, 20 mL of blood, divided equally between aerobic and anaerobic blood culture bottles, is recommended for each blood culture set. 4. For blood cultures with Gram-positive cocci, a rapid molecular test for organism identification may be performed using the Rackwiseigene Gram-Positive Blood Culture Assay. This assay detects microbial DNA in positive blood culture broth via hybridization of target DNA to capture oligonucleotides on a microarray. This assay has been cleared by the [place] Food and Drug Administration and its performance characteristics have been verified by the [facility] Microbiology Laboratory. 5. For questions about this culture, contact the Microbiology Laboratory at [phone]. Interpretive data was last revised on 2018. Jerry Cee MD LAB MICROBIOLOGY - GENERAL OR DERABLES Final Result [facility] ([place]) 1 [facility] Department [place] [address] * Lipase (09/25/2018 3:13 AM CDT) Lipase 28 10 - 99 Units/L [facility] ([place]) Blood specimen (specimen) 09/25/2018 3:13 AM CDT 09/25/2018 3:49 AM CDT Narrative [facility] ([place]) - 09/25/2018 4:02 AM CDT us Jerry Cee MD LAB BLOOD ORDERABLES Final Re sult [facility] ([place]) 1 [facility] Department [place] [address] * Comprehensive metabolic panel (09/25/2018 3:13 AM CDT) Sodium 137 135 - 145 mmol/L [facility] ([place]) Potassium, pl 4.1 3.3 - 4.9 mmol/L [facility] ([place]) Chloride 102 97 - 110 mmol/L [facility] ([place]) CO2 23 22 - 32 mmol/L [facility] ([place]) Anion gap 12 2 - 15 mmol/L [facility] ([place]) BUN 14 8 - 25 mg/dL [facility] ([place]) Creatinine 0.78 0.60 - 1.10 mg/dL [facility] ([place]) Glucose 132 70 - 199 mg/dL [facility] ([place]) [...] interpretive data was last revised 2017. Calcium 8.9 8.5 - 10.3 mg/dL [facility] ([place]) Bilirubin, total 0.3 0.1 - 1.2 mg/dL [facility] ([place]) Protein, pl 7.0 6.5 - 8.5 g/dL [facility] ([place]) Albumin 3.5 3.5 - 5.0 g/dL [facility] ([place]) Alk phos 107 40 - 130 Units/L [facility] ([place]) ALT 27 7 - 45 Units/L [facility] ([place]) AST 18 10 - 45 Units/L [facility] ([place]) Blood specimen (specimen) 09/25/2018 3:13 AM CDT 09/25/2018 3:49 AM CDT Narrative [facility] ([place]) - 09/25/2018 4:02 AM CDT us Jerry Cee MD LAB BLOOD ORDERABLES Final Re sult [facility] ([place]) 1 [facility] Department of Laboratories [place] [id number] * (ABNORMAL) CBC with auto differential (09/25/2018 3:13 AM CDT) WBC 10.5(H) 3.8 - 9.9 K/cumm [facility] ([place]) Hgb 11.5(L) 11.9 - 15.5 g/dL [facility] ([place]) Hct 36.0 35.6 - 45.5 % [facility] ([place]) Plt 274 150 - 400 K/cumm [facility] ([place]) MPV 11.6 9.1 - 12.3 fL [facility] ([place]) RBC 4.63 3.90 - 5.20 M/cumm [facility] ([place]) MCV 77.8(L) 81.3 - 96.4 fL [facility] ([place]) MCH 24.8(L) 27.1 - 33.3 pg [facility] ([place]) MCHC 31.9(L) 32.3 - 35.7 g/dL [facility] ([place]) RDW CV 16.0(H) 11.1 - 14.9 % [facility] ([place]) RDW SD 45.6 35.7 - 48.1 fL [facility] ([place]) NRBC abs 0.00 0.00 - 0.01 K/cumm [facility] ([place]) Blood specimen (specimen) 09/25/2018 3:13 AM CDT 09/25/2018 3:21 AM CDT Narrative [facility]) - 09/25/2018 3:24 AM CDT Jerry Cee MD LAB BLOOD ORDERABLES Final Re sult [facility]) 1 [facility] Department [place] [address] * Blood culture Blood Peripheral (09/25/2018 3:05 AM CDT) Report Final Report: No growth [facility]) Comment:Testing performed by : [facility], [address] [place]., [address] Blood specimen (specimen) (Peripheral) 09/25/2018 3:05 AM CDT 09/25/2018 6:46 AM CDT Narrative [facility]) - 09/30/2018 7:01 AM CDT Draw Blood cultures before administration of AntibioticsReceived only aerobic blood culture bottle. 1. Blood cultures are incubated for 5 days on a continuously monitored blood culture system. The first report of a negative culture is issued within 24 hours of receipt of the specimen in the laboratory. 2. Positive culture results are reported as soon as they are detected. 3. The most important factor for detection of microbes in the setting of bloodstream infection is the volume of blood submitted for culture. Failure to collect an optimal blood volume can result in false negative blood cultures. For pediatric patients, the recommended blood volume to collect is 1 mL of blood per year of patient age (up to 20 mL) per blood culture set. For adult patients, 20 mL of blood, divided equally between aerobic and anaerobic blood culture bottles, is recommended for each blood culture set. 4. For blood cultures with Gram-positive cocci, a rapid molecular test for organism identification may be performed using the Rackwiseigene Gram-Positive Blood Culture Assay. This assay detects microbial DNA in positive blood culture broth via hybridization of target DNA to capture oligonucleotides on a microarray. This assay has been cleared by the [place] Food and Drug Administration and its performance characteristics have been verified by the [facility] Microbiology Laboratory. 5. For questions about this culture, contact the Microbiology Laboratory at [phone]. Interpretive data was last revised on 2018. us Jerry Cee MD LAB MICROBIOLOGY - GENERAL OR DERABLES Final Result Performing Organization Address [facility]/ZIP Co de Phone Number [facility] ([place]) 1 [facility] [place] [address] * (ABNORMAL) Urinalysis, microscopic only (09/25/2018 2:55 AM CDT) WBC, ur 0-5 0 - 5 /HPF [facility] ([place]) RBC, ur 0-5 0 - 2 /HPF [facility] ([place]) Epithelial cells, squamous, ur 1-5 0 - 5 /HPF [facility] ([place]) Bacteria, ur 1+(A) [facility] ([place]) Hyaline casts, ur 1-5 0 - 10 /LPF [facility] ([place]) Urine 09/25/2018 2:55 AM CDT 09/25/2018 3:25 AM CDT Narrative [facility] ([place]) - 09/25/2018 3:36 AM CDT Jerry eCe MD LAB URINE ORDERABLES Final Re sult Performing Organization Address [facility] Co de Phone Number [facility] ([place]) 1 [facility] [place] [address] * Trichomonas antigen detection Vaginal (09/25/2018 2:55 AM CDT) Report Final Report: Negative for Trichomonas antigen [facility] ([place]) Vaginal 09/25/2018 2:55 AM CDT 09/25/2018 3:40 AM CDT Narrative [facility] ([place]) - 09/25/2018 3:40 AM CDT Jerry Cee MD LAB MICROBIOLOGY - GENERAL OR DERABLES Final Result [facility] ([place]) 1 [facility] [place] [address] * N. gonorrhoeae/C. trachomatis Amplification- Genital, Urine (09/25/2018 2:55 AM CDT) C. trachomatis Not detected Not detected [facility] ([place]) Comment:Testing performed by : [facility], [address] [place] [address]., [id number] N. gonorrhoeae Not detected Not detected [facility] ([place]) Comment: Testing performed by the [facility] Laboratory. This assay detects Chlamydia trachomatis and Neisseria gonorrhoeae by nucleic acid amplification testing (NAAT). This test is approved by the [facility] Food and Drug Administration and the performance characteristics have been verified by the laboratory. The performance characteristics of this test have not been evaluated in women or individuals less than 16 years of age. Testing performed by: [facility], [address] [place] [address]., [id number] Source- Genital, Urine Vaginal [facility] ([place]) Comment:Testing performed by : [facility], [address] [place] [address]., [id number] Vaginal 09/25/2018 2:55 AM CDT 09/25/2018 1:37 PM CDT Narrative [facility] ([place]) - 09/26/2018 10:41 AM CDT Jerry Cee MD LAB MICROBIOLOGY - GENERAL OR DERABLES Final Result [facility] ([place]) 1 [facility] [address] * hCG, urine, qualitative (09/25/2018 2:55 AM CDT) HCG, ur Negative Negative [facility] ([place]) Urine 09/25/2018 2:55 AM CDT 09/25/2018 3:25 AM CDT Narrative [facility] ([place]) - 09/25/2018 3:36 AM CDT us Jerry Cee MD LAB URINE ORDERABLES Final Re sult Performing Organization Address [facility] de Phone Number [facility] ([place]) 1 [facility] Department [place] [address] * (ABNORMAL) Urinalysis reflex to microscopic and culture Urine (09/25/2018 2:55 AM CDT) Color, ur Yellow Yellow [facility] ([place]) Clarity, ur Clear Clear [facility] ([place]) Specific gravity, ur 1.029(H) 1.010 - 1.025 [facility] ([place]) pH, urine 6.5 [facility] ([place]) Protein, ur ql 1+(A) Negative [facility] ([place]) Glucose, ur ql Negative Negative [facility] ([place]) Ketones, ur Trace Negative [facility] ([place]) Bilirubin, ur Negative Negative [facility] ([place]) Blood, ur Negative Negative [facility] ([place]) Urobilinogen, ur 1.0 mg/dL [facility] ([place]) Nitrite, ur Negative Negative [facility] ([place]) Leukocyte esterase, ur Trace(A) Negative [facility] ([place]) Urine 09/25/2018 2:55 AM CDT 09/25/2018 3:25 AM CDT Narrative [facility] ([place]) - 09/25/2018 3:36 AM CDT ?? Urine pH is affected by diet, medications, systemic acid-base disturbances, and renal tubular function. ??pH may affect urinary stone formation. ??For example, urine pH below 6.0 may help reduce the tendency for calcium phosphate stones and pH greater than 6.0 may reduce the tendency for uric acid stone formation. Source: [facility] [place]. Last revised 06-14-2017 us Jerry Cee MD LAB MICROBIOLOGY - GENERAL OR DERABLES Final Result Performing Organization Address [facility] de Phone Number [facility] ([place]) 1 [facility] Department [place] [address] * Influenza A/B and RSV PCR Nasopharyngeal (09/25/2018 2:55 AM CDT) Influenza A RNA Not Detected Not Detected [facility] ([place]) Influenza B RNA Not Detected Not Detected [facility] ([place]) RSV RNA Not Detected Not Detected [facility] ([place]) Nasopharyngeal 09/25/2018 2: 55 AM CDT 09/25/2018 3:10 AM CDT Narrative [facility] ([place]) - 09/25/2018 3:48 AM CDT This test is performed using the Mass Vector Xpert Flu/RSV Assay. This is a multiplex, real-time reverse transcriptase PCR assay that detects influenza A, influenza B, and respiratory syncytial virus RNA. This assay has been cleared by the [place] Food and Drug Administration, and its performance characteristics have been verified by the [facility] Laboratory. ??This test is performed using the Mass Vector Xpert Flu/RSV Assay. This is a multiplex, real-time reverse transcriptase PCR assay that detects influenza A, influenza B, and respiratory syncytial virus RNA. This assay has been cleared by the [place] Food and Drug Administration, and its performance characteristics have been verified by the [facility] Laboratory. Jerry Cee MD LAB MICROBIOLOGY - GENERAL OR DERABLES Final Result Performing Organization Address [facility] Co de Phone Number MICHEAL HASSAN) [facility] Department [place] [address] documented in this encounter Visit Diagnoses Diagnosis Colitis without complication- Primary Cyst of ovary, unspecified laterality documented in this encounter Administered Medications Inactive Administered Medications - up to 3 most recent administrations Medication Order MAR Action Action Date Dose Rate Site HYDROcodone-acetaminophen (NORCO) 5-325 mg per tablet 1 tablet 1 tablet, oral, Once, On Sun09/25/18 at 0759, For 1 dose, Indications: PainIndications:Pain Given 09/25/2018 8:02 AM CDT 1 tablet ioversol intravenous syringe 100 mL 100 mL, intravenous, Once in imaging, contrast, Starting on Sun09/25/18 at 0421, For 1 dose Given 09/25/2018 4:22 AM CDT 100 mL ketorolac (TORADOL) injection 30 mg 30 mg, intravenous, Once, On Sun09/25/18 at 0645, For 1 dose, For Adult IV push, administer over 15 seconds Given 09/25/2018 6:53 AM CDT 30 mg Lactated Ringer's (LR) bolus 1,000 mL 1,000 mL, intravenous, Once, On Sun09/25/18 at 0645, For 1 dose New Bag 09/25/2018 6:57 AM CDT 1,000 mL levoFLOXacin (LEVAQUIN) 750 mg/150 mL in dextrose 5% (premix) 750 mg 750 mg, intravenous, at 100 mL/hr, Administer over 90 Minutes, Every 24 hours scheduled, First dose on Sun09/25/18 at 0900, Indications: Abdominal/Pelvic InfectionIndications:Abdomi nal/Pelvic Infection New Bag 09/25/2018 8:41 AM CDT 750 mg 100 mL/hr metroNIDAZOLE (FLAGYL) 500 mg/100 mL in sodium chloride (premix) 500 mg 500 mg, intravenous, at 200 mL/hr, Administer over 30 Minutes, Once, On Sun09/25/18 at 0744, For 1 dose, Room temperature only, Indications: Abdominal/Pelvic InfectionIndications:Abdomi nal/Pelvic Infection New Bag 09/25/2018 8:05 AM CDT 500 mg 200 mL/hr morphine injection 2 mg 2 mg, intravenous, Administer over 4 Minutes, Once, On Sun09/25/18 at 0541, For 1 dose, Indications: PainIndications:Pain Given 09/25/2018 5:48 AM CDT 2 mg ondansetron (ZOFRAN) injection 4 mg 4 mg, intravenous, Administer over 2 Minutes, Once, On Sun09/25/18 at 0249, For 1 dose, Indications: Nausea, VomitingIndications:Nausea, Vomiting Given 09/25/2018 3:05 AM CDT 4 mg ondansetron (ZOFRAN) injection 4 mg 4 mg, intravenous, Administer over 2 Minutes, Once, On Sun09/25/18 at 0659, For 1 dose Given 09/25/2018 7:01 AM CDT 4 mg sodium chloride 0.9% bolus 1,000 mL 1,000 mL, intravenous, at 1,000 mL/hr, Administer over 1 Hours, Once, On Sun09/25/18 at 0249, For 1 dose New Bag 09/25/2018 3:02 AM CDT 1,000 mL 100 0 mL/hr documented in this encounter Discontinued Medications Medication Sig Discontinue Reason Start Date End Da te ibuprofen (ADVIL,MOTRIN) 800 mg tablet Take 1 tablet (800 mg total) by mouth 3 (three) times a day. Therapy completed 12/05/2017 09/25/2018 medroxyPROGESTERone (PROVERA) 10 mg tablet Take 1 tablet (10 mg total) by mouth daily. Therapy completed 05/30/2018 09/25/2018 JUNE FE 24 1 mg-20 mcg (24)/75 mg (4) per tablet TK 1 T PO QD Therapy completed 05/15/2018 09/25/2018 ibuprofen (ADVIL,MOTRIN) 600 mg tablet Take 1 tablet (600 mg total) by mouth 3 (three) times a day Take with food. Reorder 09/25/2018 09/25/2018 metoclopramide (REGLAN) 10 mg tablet Take 1 tablet q6-8 hrs for naueas, take with 25 mg benadryl Reorder 09/25/2018 09/25/2018 documented as of this encounter Historical Medications * This list may reflect changes made after this encounter. clonazePAM (KlonoPIN) 0.25 mg disintegrating tablet Take 1 tablet by mouth 2 (two) times a day 0 09/10/2018 3 added in this encounter Active and Recently Administered Medications Times are shown in CDT. Scheduled Medication Order 09/23/2018 09/24/2018 09/25/2018 HYDROcodone-acetaminophen (NORCO) 5-325 mg per tablet 1 tablet (COMPLETED) 1 tablet, oral, Once, On Sun09/25/18 at 0759, For 1 dose, Indications: Pain 0802 (Given - Provid er: Hema Quinn RN) ketorolac (TORADOL) injection 30 mg (COMPLETED) 30 mg, intravenous, Once, On Sun09/25/18 at 0645, For 1 dose, For Adult IV push, administer over 15 seconds 0653 (Given - Provid er: Hema Quinn RN) Lactated Ringer's (LR) bolus 1,000 mL (COMPLETED) 1,000 mL, intravenous, Once, On Sun09/25/18 at 0645, For 1 dose 0657 (New Bag - Prov ider: Hema Quinn RN)0852 (Stopped - Provider: Hema Quinn RN) levoFLOXacin (LEVAQUIN) 750 mg/150 mL in dextrose 5% (premix) 750 mg 750 mg, intravenous, at 100 mL/hr, Administer over 90 Minutes, Every 24 hours scheduled, First dose on Sun09/25/18 at 0900, Indications: Abdominal/Pelvic Infection 0841 (New Bag - Prov ider: Afshan Espino RN)1014 (Stopped - Provider: Hema Quinn RN) metroNIDAZOLE (FLAGYL) 500 mg/100 mL in sodium chloride (premix) 500 mg (COMPLETED) 500 mg, intravenous, at 200 mL/hr, Administer over 30 Minutes, Once, On Sun09/25/18 at 0744, For 1 dose, Room temperature only, Indications: Abdominal/Pelvic Infection 0805 (New Bag - Prov ider: Hema Quinn RN)0835 (Stopped - Provider: Afshan Espino RN) morphine injection 2 mg (COMPLETED) 2 mg, intravenous, Administer over 4 Minutes, Once, On Sun09/25/18 at 0541, For 1 dose, Indications: Pain 0548 (Given - Provid er: Ada Mccormack, EBEN) ondansetron (ZOFRAN) injection 4 mg (COMPLETED) 4 mg, intravenous, Administer over 2 Minutes, Once, On Sun09/25/18 at 0249, For 1 dose, Indications: Nausea, Vomiting 0305 (Given - Provid er: Ada Mccormack, EBEN) ondansetron (ZOFRAN) injection 4 mg (COMPLETED) 4 mg, intravenous, Administer over 2 Minutes, Once, On Sun09/25/18 at 0659, For 1 dose 0701 (Given - Provid er: Hema Quinn RN) sodium chloride 0.9% bolus 1,000 mL (COMPLETED) 1,000 mL, intravenous, at 1,000 mL/hr, Administer over 1 Hours, Once, On Sun09/25/18 at 0249, For 1 dose 0302 (New Bag - Prov ider: Ada Mccormack, RN - Comment: Iv pump)0400 (Stopped - Provider: Ada Mccormack, RN) PRN Medication Order 09/23/2018 09/24/2018 09/25/2018 ioversol intravenous syringe 100 mL (COMPLETED) 100 mL, intravenous, Once in imaging, contrast, Starting on Sun09/25/18 at 0421, For 1 dose 0422 (Given - Provid er: Leslye Lara, R-RT) documented in this encounter Care Teams Patrol Commander Relationship Specialty Start Date End Date No, Physician PCP - General 12/26/17 04/23/20 No, Physician 01/10/17 documented as of this encounter
--- OUTSIDE RECORDS SUMMARY | 2024-06-13 23:58 | XMS_ITS | Encounter Summary ---
Author Organization [facility] Facility Care Team Providers Care Mainframe Systems Engineer Name Role Phone No, Physician Unavailable No, Physician Primary Care Provider [phone] Encounter Details Date Type Department Care Team (Latest Contact Info) Description 09/25/2018 Travel Social History Tobacco Use Types Packs/Day Years Used Date Smoking Tobacco: Never Smokeless Tobacco: Never Alcohol Use Standard Drinks/Week Comments No 0 (1 standard drink = 0.6 oz pur e alcohol) Comments Unknown Sex and Gender Information Value Date Recorded Sex Assigned at Not on file 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
--- OUTSIDE RECORDS SUMMARY | 2024-06-13 23:58 | XMS_ITS | Encounter Summary ---
Author Organization [facility] Healthcare Address [address] [place] [address] Care Team Providers Care Money Counter Name Role Phone No, Physician Unavailable Damian Verde MACHINE SOLE LEVELER Primary Care Provider [phone] Reason for Visit * Reason Comments Abdominal Pain pt states she just l [facility] after being diagnosed with a ruptured ovarian cyst. states she is now hot and having vomiting and diarrhea Encounter Details Date Type Department Care Team (Late st Contact Info) Description 04/24/2020 4:03 PM DAMPENER - 04/24/2020 5:51 PM DAMPENER Emergency [facility] Emergency Department [address] [place] [address] [place] [address] [place] [address] Abdominal pain (Primary Dx) Discharge Disposition: Left Against Medical Advice Social History Tobacco Use Types Packs/Day Years Used Date Smoking Tobacco: Never Smokeless Tobacco: Never Alcohol Use Standard Drinks/Week Comments Yes 0 (1 standard drink = 0.6 oz pur e alcohol) occasional Comments No Sex and Gender Information Value Date Recorded Sex Assigned at Not on file 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 Gender Identity Not on file Sexual Orientation Not on file documented as of this encounter Last Filed Vital Signs Vital Sign Reading Time Taken Comments Blood Pressure 155/80 04/24/2020 5:50 PM DAMPENER Pulse 87 04/24/2020 5:50 PM DAMPENER Temperature 36.4 ??C (97.5 ??F) 04/24/2020 4:01 PM CS T Respiratory Rate 18 04/24/2020 5:50 PM DAMPENER Oxygen Saturation 100% 04/24/2020 5:50 PM DAMPENER Inhaled Oxygen Concentration - - Weight - - Height - - Body Mass Index - - documented in this encounter Discharge Diagnoses Diagnosis Unspecified abdominal pain - UNSPECIFIED ABDOMINAL PAIN Nausea with vomiting, unspecified - NAUSEA WITH VOMITING, UNSPECIFIED documented in this encounter Medications at Time [...] Disposition Disposition Code Departure Means Destination Left Against Medical Advice documented in this encounter ED Notes * Nisreen Coates MD - 04/24/2020 5:07 PM CST HPI Chief Complaint Patient presents with ??? Abdominal [facility] with a ruptured ovarian cyst. states she is now hot and having vomiting and diarrhea Patient is a 20 y/o female complaining bilateral lower abdominal pain starting 3 days ago. She describes her pain as pressure and sharp and rates it as 7/10. She states that her pain radiates to upper abdomen and back. There is no alleviating or exacerbating factor. She states that she was seen at [facility] earlier today and diagnosed with possible ruptured ovarian cyst. She states that her pain got wor se and she started to vomit after she was discharged. Patient History: Patient Active Problem List Diagnosis Date Noted ??? Achilles tendinitis of right lower extremity 03/09/2020 ??? Cervicitis 04/09/2019 ??? Biliary dyskinesia 05/17/2017 ??? BMI 45.0-49.9, adult ([facility]) 05/17/2017 ??? Epigastric pain [...] Systems Constitutional: Negative for chills and fever. Eyes: Negative for visual disturbance. Respiratory: Negative for cough and shortness of breath. Cardiovascular: Negative for chest pain. Gastrointestinal: Positive for abdominal pain, nausea and vomiting. Negative for diarrhea. Genitourinary: Negative for dysuria and hematuria. Musculoskeletal: Negative for back pain and neck pain. Neurological: Negative for headaches. All other systems reviewed and are negative. Physical Exam ED Triage Vitals [04/24/20 1601] Temp Pulse Resp BP SpO2 36.4 ??C (97.5 ??F) 106 18 147/82 100 % Temp src Heart Rate Source Patient Position BP Location FiO2 (%) -- -- -- Right arm -- Physical Exam Vitals signs and nursing note reviewed. Constitutional: General: She is not in acute distress. Appearance: She is well-developed. HENT: Head: Normocephalic and atraumatic. Nose: Nose normal. Eyes: Conjunctiva/sclera: Conjunctivae normal. Neck: Musculoskeletal: Normal range of motion and neck supple. Cardiovascular: Rate and Rhythm: Normal rate and regular rhythm. Pulmonary: Effort: Pulmonary effort is normal. Breath sounds: Normal breath sounds. Abdominal: Palpations: Abdomen is soft. Tenderness: There is no abdominal tenderness. Musculoskeletal: Normal range of motion. Skin: General: Skin is warm. Findings: No rash. Neurological: Mental Status: She is alert and oriented to person, place, and time. Labs Reviewed CBC WITH AUTO DIFFERENTIAL - Abnormal Result Value WBC 10.0 (*) Hgb 11.8 (*) Hct 37.9 Plt 295 MPV 12.1 RBC 4.70 MCV 80.6 (*) MCH 25.1 (*) MCHC 31.1 (*) RDW CV 15.5 (*) RDW SD 45.1 NRBC abs 0.00 DIFFERENTIAL AUTO - Abnormal Neutrophil abs 6.8 (*) Imm gran abs 0.1 Lymphocyte abs 2.4 Monocyte abs 0.6 Eosinophil abs 0.1 Basophil abs 0.0 Neutrophil pct 68.7 Imm gran pct 0.5 Lymphocyte pct 24.2 Monocyte pct 5.5 Eosinophil pct 0.7 Basophil pct 0.4 BASIC METABOLIC PANEL Sodium 140 Potassium, pl 3.8 Chloride 102 CO2 29 Anion gap 9 BUN 17 Creatinine 0.86 Glucose 117 Calcium 9.3 EGFR GFR 96 MDM MDM Patient does not want to all results to come. She wants leave. She left AMA. She is awake, alert and competent to make decision for herself. Final diagnoses: Abdominal pain Disposition: AMA Condition: Stable Nisreen Coates MD 04/26/20 1320 ENER * Bev Roach RN - 04/24/2020 4:49 PM CST Wrong patient registered to room. Bev Roach RN 04/24/20 1649 ENER * Bev Roach RN - 04/24/2020 4:10 PM CST Patient Reports she aas at [facility] today for abd pain. Dx with right and left ovarian cycs. States pain in worse, has nausea and vomiting. Bev Roach, EBEN 04/24/20 1611 ENER documented in this encounter Plan of Treatment Not on file documented as of this encounter Procedures Procedure Name Priority Date/Time Associated Diagnosis Comments CT ABDOMEN PELVIS W CONTRAST ED 04/24/2020 5:55 PM DAMPENER EGFR STAT 04/24/2020 5:16 PM DAMPENER DIFFERENTIAL AUTO STAT 04/24/2020 5:1 6 PM DAMPENER CBC WITH AUTO DIFFERENTIAL STAT 04/24/2020 5:16 PM DAMPENER BASIC METABOLIC PANEL STAT 04/24/2020 5:16 PM DAMPENER documented in this encounter Results * CT Abdomen Pelvis W Contrast (04/24/2020 5:55 PM DAMPENER) Anatomical Region Laterality Modality Body N/A Computed Tomogra phy 04/25/2020 8:04 AM DAMPENER Impressions 04/25/2020 8:29 AM DAMPENER No acute abnormality. Electronically signed by: Nikko Serrano M.D. Narrative 04/25/2020 8:29 AM DAMPENER EXAMINATION: ??Computed tomography of the abdomen and pelvis with intravenous contrast HISTORY: Abdominal pain TECHNIQUE: ??Transaxial computed tomographic images of the abdomen and pelvis were obtained with intravenous contrast according to the standard protocol after the uneventful administration of 98 mL Opti-Ray 350 intravenous contrast. COMPARISON: 09/25/2018 FINDINGS: The visualized lung bases are clear. ??The heart size is normal without pericardial effusion. The liver is normal without focal lesions or intrahepatic biliary ductal dilation. ??The gallbladder surgically absent. ??The spleen, pancreas, adrenal glands, and kidneys are normal. ??The stomach and duodenum are normal. The urinary bladder is normal. ??A few nabothian cysts are noted within the cervix. ??The uterus is otherwise normal. ??Small bilateral ovarian cysts are within normal limits for a patient of reproductive age. ??The colon and small bowel are normal caliber without obstruction or inflammation. ??The appendix is normal. No free fluid, free air, or lymphadenopathy are present within the abdomen or pelvis. ??There is atherosclerotic calcification or vascular aneurysm. ??No suspicious bone lesions are noted. Procedure Note Nikko Serrano MD - 04/25/2020 EXAMINATION: Computed tomography of the abdomen and pelvis with intravenous contrast HISTORY: Abdominal pain TECHNIQUE: Transaxial computed tomographic images of the abdomen and pelvis were obtained with intravenous contrast according to the standard protocol after the uneventful administration of 98 mL Opti-Ray 350 intravenous contrast. COMPARISON: 09/25/2018 FINDINGS: The visualized lung bases are clear. The heart size is normal without pericardial effusion. The liver is normal without focal lesions or intrahepatic biliary ductal dilation. The gallbladder surgically absent. The spleen, pancreas, adrenal glands, and kidneys are normal. The stomach and duodenum are normal. The urinary bladder is normal. A few nabothian cysts are noted within the cervix. The uterus is otherwise normal. Small bilateral ovarian cysts are within normal limits for a patient of reproductive age. The colon and small bowel are normal caliber without obstruction or inflammation. The appendix is normal. No free fluid, free air, or lymphadenopathy are present within the abdomen or pelvis. There is atherosclerotic calcification or vascular aneurysm. No suspicious bone lesions are noted. IMPRESSION: No acute abnormality. Electronically signed by: Nikko Serrano M.D. Nisreen Coates MD IMG CT PROCEDURES Final Result * eGFR (04/24/2020 5:16 PM DAMPENER) [facility] eGFR 96 mL/min/1.7 3 m2 [facility] Comment: Interpretive Data Reference Interval Normal ?>/= 90 mL/min/1.73m2 Mildly decreased* ? 60 - 89 mL/min/1.73m2 Mildly to moderately decreased ?45 - 59 mL/min/1.73m2 Moderately to severely decreased ??30 - 44 mL/min/1.73m2 Severely decreased ?15 - 29 mL/min/1.73m2 Kidney Failure ?< 15 ??mL/min/1.73m2 *Relative to young adult level If -Kazakh multiply value by 1.16. Estimated glomerular filtration [...] last reviewed 2015. Blood specimen (specimen) 04/24/2020 5:16 PM DAMPENER 04/24/2020 5:57 PM DAMPENER us Nisreen Coates MD LAB BLOOD ORDERABLES Final Resu lt [facility] [address] [address] Department [place] [address] * (ABNORMAL) Differential, auto (04/24/2020 5:16 PM DAMPENER) Neutrophil abs 6.8(H) 1.7 - 6.5 K/cumm CERNER Imm gran abs 0.1 0.0 - 0.1 K/cumm [facility] Lymphocyte abs 2.4 0.8 - 3.3 K/cumm [facility] Monocyte abs 0.6 0.2 - 0.8 K/cumm [facility] Eosinophil abs 0.1 0.0 - 0.5 K/cumm [facility] Basophil abs 0.0 0.0 - 0.1 K/cumm [facility] Neutrophil pct 68.7 % [facility] Comment: Interpretive Data Percent cell count reference ranges are not reported, since discordance with absolute values may lead to misinterpretation of CBC data. Current Interpretive Data was last revised on 2017. Imm gran pct 0.5 % [facility] Comment: Interpretive Data Percent cell count reference ranges are not reported, since discordance with absolute values may lead to misinterpretation of CBC data. Current Interpretive Data was last revised on 2017. Lymphocyte pct 24.2 % [facility] Comment: Interpretive Data Percent cell count reference ranges are not reported, since discordance with absolute values may lead to misinterpretation of CBC data. Current Interpretive Data was last revised on 2017. Monocyte pct 5.5 % [facility] Comment: Interpretive Data Percent cell count reference ranges are not reported, since discordance with absolute values may lead to misinterpretation of CBC data. Current Interpretive Data was last revised on 2017. Eosinophil pct 0.7 % [facility] Comment: Interpretive Data Percent cell count reference ranges are not reported, since discordance with absolute values may lead to misinterpretation of CBC data. Current Interpretive Data was last revised on 2017. Basophil pct 0.4 % [facility] Comment: Interpretive Data Percent cell count reference ranges are not reported, since discordance with absolute values may lead to misinterpretation of CBC data. Current Interpretive Data was last revised on 2017. Blood specimen (specimen) 04/24/2020 5:16 PM DAMPENER 04/24/2020 5:57 PM DAMPENER us Nisreen Coates MD LAB BLOOD ORDERABLES Final Resu lt [facility] [address] [address] Department [place] [address] * Basic metabolic panel (04/24/2020 5:16 PM DAMPENER) Sodium 140 135 - 145 mmol/L [facility] Potassium, pl 3.8 3.3 - 4.9 mmol/L [facility] Chloride 102 97 - 110 mmol/L [facility] CO2 29 22 - 32 mmol/L [facility] Anion gap 9 2 - 15 mmol/L [facility] BUN 17 8 - 25 mg/dL [facility] Creatinine 0.86 0.60 - 1.10 mg/dL [facility] Glucose 117 70 - 199 mg/dL [facility] Comment: Interpretive Data Fasting glucose >/= 126 [...] interpretive data was last revised 2017. Calcium 9.3 8.5 - 10.3 mg/dL [facility] Blood specimen (specimen) 04/24/2020 5:16 PM DAMPENER 04/24/2020 5:57 PM DAMPENER us Nisreen Coates MD LAB BLOOD ORDERABLES [facility] [address] [address] Department [place] [address] * (ABNORMAL) CBC with auto differential (04/24/2020 5:16 PM DAMPENER) WBC 10.0(H) 3.8 - 9.9 K/cumm [facility] Hgb 11.8(L) 11.9 - 15.5 g/dL [facility] Hct 37.9 35.6 - 45.5 % [facility] Plt 295 150 - 400 K/cumm [facility] MPV 12.1 9.1 - 12.3 fL [facility] RBC 4.70 3.90 - 5.20 M/cumm [facility] MCV 80.6(L) 81.3 - 96.4 fL [facility] MCH 25.1(L) 27.1 - 33.3 pg [facility] MCHC 31.1(L) 32.3 - 35.7 g/dL [facility] RDW CV 15.5(H) 11.1 - 14.9 % [facility] RDW SD 45.1 35.7 - 48.1 fL [facility] NRBC abs 0.00 0.00 - 0.01 K/cumm [facility] Blood specimen (specimen) (Blood, Venous) 04/24/2020 5:16 PM DAMPENER 04/24/2020 5:57 PM DAMPENER Nisreen Coates MD LAB BLOOD [place] [address] [facility] Department [place] [address] documented in this encounter Visit Diagnoses Diagnosis Abdominal pain- Primary Abdominal pain, unspecified site documented in this encounter Administered Medications Inactive Administered Medications - up to 3 most recent administrations Medication Order MAR Action Action Date Dose Rate Site ioversoL (OPTIRAY 350) syringe syringe 100 mL 100 mL, intravenous, Once in imaging, contrast, Starting on 04/24/20 at 1731, For 1 dose Given 04/24/2020 5:37 PM DAMPENER 98 mL ketorolac (TORADOL) injection 30 mg 30 mg, intravenous, Once, On 04/24/20 at 1650, For 1 dose, For Adult IV push, administer over 15 seconds Given 04/24/2020 5:25 PM DAMPENER 30 mg metoclopramide (REGLAN) injection 10 mg 10 mg, intravenous, Administer over 1 Minutes, Once, On 04/24/20 at 1650, For 1 dose Given 04/24/2020 5:26 PM DAMPENER 10 mg documented in this encounter Active and Recently Administered Medications Times are shown in DAMPENER. Scheduled Medication Order 04/22/2020 04/23/2020 04/24/2020 ketorolac (TORADOL) injection 30 mg (COMPLETED) 30 mg, intravenous, Once, On 04/24/20 at 1650, For 1 dose, For Adult IV push, administer over 15 seconds 1725 (Given - Provid er: Bev Roach RN) metoclopramide (REGLAN) injection 10 mg (COMPLETED) 10 mg, intravenous, Administer over 1 Minutes, Once, On 04/24/20 at 1650, For 1 dose 1726 (Given - Provid er: Bev Roach RN) PRN Medication Order 04/22/2020 04/23/2020 04/24/2020 ioversoL (OPTIRAY 350) syringe syringe 100 mL (COMPLETED) 100 mL, intravenous, Once in imaging, contrast, Starting on 04/24/20 at 1731, For 1 dose 1737 (Given - Provid er: Rahat Sage, RT) documented in this encounter Care Teams Money Counter Relationship Specialty Start Date End Date Damian Verde NP [address] [facility] [place] [address] [place] [address] PCP - General 04/24/20 04/20/21 No, Physician 01/10/17 documented as of this encounter
--- OUTSIDE RECORDS SUMMARY | 2024-06-13 23:58 | XMS_ITS | Encounter Summary ---
Author Organization [facility] Address [address] [place] [address] Care Team Providers Care Metal Bonding Worker Name Role Phone No, Physician Unavailable No, Physician Primary Care Provider [phone] Reason for Visit * Reason Comments Ankle Pain Patient fell at work and hurt her right ankle. She states she is in a lot of pain. 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 Gender Identity Not on file Sexual Orientation Not on file documented as of this encounter Last Filed Vital Signs Vital Sign Reading Time Taken Comments Blood Pressure 134/76 02/25/2020 7:09 PM CDT Pulse 98 02/25/2020 7:09 PM CDT Temperature 37.1 ??C (98.7 ??F) 02/25/2020 7:09 PM CD T Respiratory Rate 20 02/25/2020 7:09 PM CDT Oxygen Saturation 99% 02/25/2020 7:09 PM CDT Inhaled Oxygen Concentration - - Weight 138.3 kg (305 lb) 02/25/2020 7:09 PM CDT Height 162.6 cm (5' 4 ) 02/25/2020 7:09 PM CDT Body Mass Index 52.35 02/25/2020 7:09 PM CDT documented in this encounter Patient Instructions * Patient Instructions* Terra Chand NP - 02/25/2020 7:00 PM CDT Recommended treatment for your pain today includes the following: ??? Go to [facility] tomorrow to have X-Ray performed. You will use the atrium entrance. ??? Take medications as prescribed. ??? Take Ibuprofen 600-800mg three times daily to reduce inflammation and discomfort. ??? Rest extremity as much as possible. ??? Elevate affected extremity above the level of the heart to reduce swelling. ??? Wear JAME bandage for compression to reduce swelling. Follow up with your PCP in one week or sooner if symptoms do not improve as anticipated or new symptoms arise. documented in this encounter Progress Notes * Terra Chand NP - 02/25/2020 7:00 PM CDT Images from the original note were not included. Subjective/Objective Patient ID: Maeve Ross is a 20 y.o. female. Chief Complaint Ankle Pain (Patient fell at work and hurt her right ankle. She states she is in a lot of pain. ) Presents to [facility] with c/o R ankle pain after twisting ankle and falling today at work. Patient reports increased pain with weight bearing. She has not taken anything OTC for discomfort. Review of Systems Constitutional: Negative. Respiratory: Negative. Cardiovascular: Negative. Musculoskeletal: Positive for arthralgias (R ankle). Physical Exam Eyes: Conjunctiva/sclera: Conjunctivae normal. Cardiovascular: Rate and Rhythm: Normal rate. Pulmonary: Effort: Pulmonary effort is normal. Musculoskeletal: Right ankle: She exhibits swelling. She exhibits normal range of motion, no ecchymosis, no deformity and normal pulse. Skin: General: Skin is warm and dry. Neurological: Mental Status: She is alert. Psychiatric: Mood and Affect: Mood normal. Vitals: 02/25/20 1909 BP: 134/76 BP Location: Right arm Patient Position: Sitting Pulse: 98 Resp: 20 Temp: 37.1 ??C (98.7 ??F) TempSrc: Oral SpO2: 99% Weight: (!) 138.3 kg (305 lb) Height: 162.6 cm (5' 4 ) Assessment/Plan Jame wrap applied, R ankle. Patient advised that she will be called with results of X-Ray. Diagnoses and all orders for this visit: Contusion of right ankle (Primary) - XR Ankle Right 3+ Vw; Future Patient Education: Recommended treatment for your pain today includes the following: ??? Go to [facility] tomorrow to have X-Ray performed. You will use the atrium entrance. ??? Take medications as prescribed. ??? Take Ibuprofen 600-800mg three times daily to reduce inflammation and discomfort. ??? Rest extremity as much as possible. ??? Elevate affected extremity above the level of the heart to reduce swelling. ??? Wear JAME bandage for compression to reduce swelling. Follow up with your PCP in one week or sooner if symptoms do not improve as anticipated or new symptoms arise. Disposition ??? Treatment plan including expectations, follow up, and return precautions discussed with patient/parent, verbalizes understanding. ??? Medication dosage, use, and potential adverse reactions discussed with patient/parent. ??? Advised to follow up with PCP if symptoms do not resolve as expected or sooner if condition worsens. ??? Signs/symptoms warranting ER evaluation reviewed. ??? Patient and/or guardian was given an opportunity to ask questions, questions answered. Terra Chand NP documented in this encounter Plan of Treatment Not on file documented as of this encounter Visit Diagnoses Diagnosis Contusion of right ankle- Primary documented in this encounter Historical Medications * This list may reflect changes made after this encounter. triamterene-hydroC HLOROthiazide 37.5-25 mg per tablet TK 1 T PO QD 01/14/2020 added in this encounter Care Teams Metal Bonding Worker Relationship Specialty Start Date End Date No, Physician PCP - General 12/26/17 04/23/20 No, Physician 01/10/17 documented as of this encounter
--- OUTSIDE RECORDS SUMMARY | 2024-06-13 23:58 | XMS_ITS | Encounter Summary ---
Author Organization [facility] Address [address] [place] [address] Care Team Providers Care Wood Heel Finisher Name Role Phone No, Physician Unavailable No, Physician Primary Care Provider [phone] Reason for Visit * Reason Comments Vaginal Discharge Encounter Details Date Type Department Care Team (Late st Contact Info) Description 04/09/2019 1:42 PM GLUE MAKER BONE - 04/09/2019 3:44 PM GLUE MAKER BONE Emergency 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 Gender Identity Not on file Sexual Orientation Not on file documented as of this encounter Last Filed Vital Signs Vital Sign Reading Time Taken Comments Blood Pressure 157/94 04/09/2019 12:30 PM GLUE MAKER BONE Pulse 102 04/09/2019 12:27 PM GLUE MAKER BONE Temperature 36.8 ??C (98.3 ??F) 04/09/2019 12:[address] Respiratory Rate 20 04/09/2019 12:27 PM GLUE MAKER BONE Oxygen Saturation 95% 04/09/2019 12:27 PM GLUE MAKER BONE Inhaled Oxygen Concentration - - Weight 136.1 kg (300 lb) 04/09/2019 12:27 PM GLUE MAKER BONE Height 165.1 cm (5' 5 ) 04/09/2019 12:27 PM GLUE MAKER BONE Body Mass Index 49.92 04/09/2019 12:27 PM GLUE MAKER BONE documented in this encounter Discharge Diagnoses Diagnosis Inflammatory disease of cervix uteri - INFLAMMATORY DISEASE OF CERVIX UTERI documented in this encounter Discharge Instructions * Discharge Instructions* Ortiz Munoz PA - 04/09/2019 3:40 PM GLUE MAKER BONE To get established with a primary care provider contact [address][phone] Hours: Sunday through Sunday 8 AM to 5 PM MAKER BONE MAKER BONE * Attachments The following attachments cannot be sent through Care Everywhere. * Cervicitis (AfterCare(R) Instructions(ER/ED)) (South African) documented in this encounter Medications at Time of Discharge metroNIDAZOLE (FLAGYL) 500 mg tablet Take 1 tablet (500 mg total) by mouth 2 (two) times a day for 7 days 14 tablet 04/09/2019 9 clonazePAM (KlonoPIN) 0.25 mg disintegrating tablet [...] Refills Last Filled Start Date End Date metroNIDAZOLE (FLAGYL) 500 mg tablet Take 1 tablet (500 mg total) by mouth 2 (two) times a day for 7 days 14 tablet 04/09/2019 04/16/2019 documented in this encounter Discharge Disposition Disposition Code Departure Means Destination Comment s Discharge to home or self care Pt ambulated out without difficulty documented in this encounter ED Notes * Ortiz Munoz PA - 04/09/2019 1:48 PM CST HPI Chief Complaint Patient presents with ??? Vaginal Discharge 19-year-old female presents with chief complaint of vaginal discharge and vaginal irritation. Onsetseveral days ago. States 1 week ago she had unprotected sex while she was drunk. Discharge is foul-smelling. Complains of occasional burning with urination. Denies suprapubic or flank pain. Denies fever or chills. Patient History Patient Active Problem List Diagnosis Date Noted ??? Cervicitis 04/09/2019 ??? Biliary dyskinesia 05/17/2017 ??? BMI 45.0-49.9, adult ([facility]) 05/17/2017 ??? Epigastric pain 05/17/2017 [...] No ??? Drug use: No Social History Patient does not qualify to have social determinant information on file (likely too young). Social History Narrative ??? Not on file Review of Systems Review of Systems All other systems reviewed negative. All available allergies, past medical history, past surgical history, social history, and medications reviewed from the medical record, nursing notes, and with patient Physical Exam ED Triage Vitals Temp Pulse Resp BP SpO2 04/09/19 1227 04/09/19 1227 04/09/19 1227 04/09/19 1230 04/09/19 1227 36.8 ??C (98.3 ??F) 102 20 157/94 95 % Temp src Heart Rate Source Patient Position BP Location FiO2 (%) 04/09/19 1227 -- -- -- -- Temporal Physical Exam Vitals signs and nursing note reviewed. Constitutional: General: She is not in acute distress. Appearance: Normal appearance. She is not ill-appearing, toxic-appearing or diaphoretic. HENT: Head: Normocephalic. Right Ear: Ear canal and external ear normal. Left Ear: Ear canal and external ear normal. Nose: Nose normal. Mouth/Throat: Mouth: Mucous membranes are moist. Pharynx: Oropharynx is clear. Eyes: General: No scleral icterus. Right eye: No discharge. Left eye: No discharge. Conjunctiva/sclera: Conjunctivae normal. Pupils: Pupils are equal, round, and reactive to light. Neck: Musculoskeletal: Normal range of motion. Cardiovascular: Rate and Rhythm: Normal rate and regular rhythm. Pulses: Normal pulses. Heart sounds: Normal heart sounds. Pulmonary: Effort: Pulmonary effort is normal. Breath sounds: Normal breath sounds. Abdominal: General: Abdomen is flat. Bowel sounds are normal. There is no distension. Palpations: Abdomen is soft. Tenderness: There is no tenderness. There is no right CVA tenderness or left CVA tenderness. Genitourinary: Comments: Pelvic Exam: Labia and vaginal introitus without lesions or masses. Vaginal canal contains . Cervix intact with closed cervical os . Pelvic / cervical motion tenderness on bimanual exam. Entire exam was chaperoned by Bhavana Crespo RN. Skin: General: Skin is warm and dry. Neurological: General: No focal deficit present. Mental Status: She is alert and oriented to person, place, and time. Psychiatric: Mood and Affect: Mood normal. Behavior: Behavior normal. Thought Content: Thought content normal. Judgment: Judgment normal. [facility] ED Course as of Apr 09 1542 Time: 04/09 1504 Comment: Pre-hypertension/Hypertension: The patient has been informed that they may have pre-hypertension or Hypertension based on a blood pressure reading in the emergency department. I recommend that the patient call the primary care provider listed on their discharge instructions or a physician of their choice this week to arrange follow up for further evaluation of possible pre- hypertension or Hypertension. By: ELSIE Mccrary Time: 04/09 1537 Comment: Discussed with pt all findings as well as plan of care. Pt understands and is agreeable with plan for discharge. All questions and concerns addressed By: ELSIE Mccrary Cervicitis ELSIE Mccrary 04/09/19 1543 Cosigned by Angela Morley MD at 04/22/2019 9:08 AM GLUE MAKER BONE MAKER BONE MAKER BONE * Arianne Briones RN - 04/09/2019 12:29 PM CST Pt presents to ER with c/o vaginal discharge since last week after having unprotected sex. Pt reports foul smell also. MAKER BONE documented in this encounter Plan of Treatment Not on file documented as of this encounter Procedures Procedure Name Priority Date/Time Associated Diagnosis Comments N.GONORRHOEAE/C.TRAC HOMATIS AMPLIFICATION- GENITAL, URINE STAT 04/09/2019 2:16 PM GLUE MAKER BONE GRAM STAIN YEAST STAT 04/09/2019 2:16 PM GLUE MAKER BONE TRICHOMONAS ANTIGEN STAT 04/09/2019 2 :16 PM GLUE MAKER BONE URINALYSIS AND REFLEX TO MICROSCOPIC AND CULTURE STAT 04/09/2019 12:43 PM GLUE MAKER BONE HCG, URINE, QUALITATIVE STAT 04/09/2019 12:43 PM GLUE MAKER BONE URINALYSIS, MICROSCOPIC ONLY STAT 04/09/2019 12:43 PM GLUE MAKER BONE documented in this encounter Results * Trichomonas antigen detection Vaginal (04/09/2019 2:16 PM GLUE MAKER BONE) Report Final Report: Negative for Trichomonas antigen [facility] ([place]) Vaginal 04/09/2019 2:16 PM GLUE MAKER BONE 04/09/2019 9:40 PM GLUE MAKER BONE [facility] MICROBIOLOGY - GENERAL O RDERABLES Final Result Performing Organization Address City/[facility]/ZIP Co de Phone Number [facility]AL [facility] ([place]) 1 [facility] [employer] [address] * Gram stain yeast Vaginal (04/09/2019 2:16 PM GLUE MAKER BONE) Direct Specimen Exam Stain: No Yeast or Fungal elements seen [facility] ([place]) Vaginal 04/09/2019 2:16 PM GLUE MAKER BONE 04/09/2019 3:02 PM GLUE MAKER BONE [facility] MICROBIOLOGY - GENERAL O RDERABLES Final Result [facility] ([place]) [address] [place] [address] * N. gonorrhoeae/C. trachomatis Amplification- Genital, Urine (04/09/2019 2:16 PM GLUE MAKER BONE) C. trachomatis Not detected Not detected [facility] ([place]) Comment:Testing performed by : [facility], [address] [place] [address], [place]., [address] N. gonorrhoeae Not detected Not detected [facility] ([place]) Comment: Testing performed by the [facility]. This assay detects Chlamydia trachomatis and Neisseria gonorrhoeae by nucleic acid amplification testing (NAAT). This test is approved by the [place] Food and Drug Administration and the performance characteristics have been verified by the laboratory. The performance characteristics of this test have not been evaluated in women or individuals less than 16 years of age. Testing performed by: [facility], [address] [place] [address]., [id number] Source- Genital, Urine Vaginal [facility] ([place]) Comment:Testing performed by : [facility], [address] [place] [address]., [id number] Vaginal 04/09/2019 2:16 PM GLUE MAKER BONE 04/09/2019 7:22 PM GLUE MAKER BONE [facility] MICROBIOLOGY - GENERAL O RDERABLES Final Result Performing Organization Address City/[facility]/ZIP Co de Phone Number [facility] ([place]) 1 [facility] [place] [address] * hCG, urine, qualitative (04/09/2019 12:43 PM GLUE MAKER BONE) HCG, ur Negative Negative [facility] ([place]) Urine 04/09/2019 12:4 3 PM GLUE MAKER BONE 04/09/2019 3:32 PM GLUE MAKER BONE [facility] URINE ORDERABLES Final R esult Performing Organization Address [facility]/ZIP Co de Phone Number [facility] ([place]) 1 [facility] of [employer] [address] * (ABNORMAL) Urinalysis, microscopic only (04/09/2019 12:43 PM GLUE MAKER BONE) WBC, ur 0-5 0 - 5 /HPF [facility] ([place]) RBC, ur 0-2 0 - 2 /HPF [facility] ([place]) Epithelial cells, squamous, ur 1-5 0 - 5 /HPF [facility] ([place]) Bacteria, ur 1+(A) [facility] ([place]) Hyaline casts, ur 1-5 0 - 10 /LPF [facility] ([place]) Urine 04/09/2019 12:4 3 PM GLUE MAKER BONE 04/09/2019 1:06 PM GLUE MAKER BONE us Belkis Polanco MD LAB URINE ORDERABLE S Final Result [facility] ([place]) 1 [facility] [employer] [place] [address] * (ABNORMAL) Urinalysis reflex to microscopic and culture Urine (04/09/2019 12:43 PM GLUE MAKER BONE) Color, ur Yellow Yellow [facility] ([place]) Clarity, ur Clear Clear [facility] ([place]) Specific gravity, ur 1.019 1.010 - 1.025 [facility] ([place]) pH, urine 6.0 [facility] ([place]) Protein, ur ql Negative Negative [facility] ([place]) Glucose, ur ql Negative Negative [facility] ([place]) Ketones, ur Negative Negative [facility] ([place]) Bilirubin, ur Negative Negative [facility] ([place]) Blood, ur Negative Negative [facility] ([place]) Urobilinogen, ur 0.2 mg/dL [facility] ([place]) Nitrite, ur Negative Negative [facility] ([place]) Leukocyte esterase, ur Trace(A) Negative [facility] ([place]) Urine 04/09/2019 12:4 3 PM GLUE MAKER BONE 04/09/2019 1:06 PM GLUE MAKER BONE Narrative [facility] ([place]) - 04/09/2019 1:37 PM GLUE MAKER BONE ?? Urine pH is affected by diet, medications, systemic acid-base disturbances, and renal tubular function. ??pH may affect urinary stone formation. ??For example, urine pH below 6.0 may help reduce the tendency for calcium phosphate stones and pH greater than 6.0 may reduce the tendency for uric acid stone formation. Source: [facility] [employer]. Last revised 06-14-2017 us Belkis Polanco MD LAB MICROBIOLOGY - GENERAL ORDERABLES Final Result [facility] ([place]) 1 [facility] Department of [employer] [address] documented in this encounter Visit Diagnoses Diagnosis Cervicitis- Primary Cervicitis and endocervicitis Cervicitis Cervicitis and endocervicitis documented in this encounter Administered Medications Inactive Administered Medications - up to 3 most recent administrations Medication Order MAR Action Action Date Dose Rate Site cefTRIAXone (ROCEPHIN) injection 1,000 mg 1,000 mg, intramuscular, Once, On Sun04/09/19 at 1419, For 1 dose, Indications: Abdominal/Pelvic Infection, Sexually Transmitted InfectionIndications:Abdo sher/Pelvic Infection,Sexually Transmitted Infection New Bag 04/09/2019 2:45 PM GLUE MAKER BONE 1,000 mg Right Dorsogluteal/Butt ock lidocaine PF (XYLOCAINE) 10 mg/mL (1 %) preservative free injection 20 mg 20 mg (2 mL), other, Once, On Sun04/09/19 at 1419, For 1 dose Given 04/09/2019 2:45 PM GLUE MAKER BONE 20 mg metroNIDAZOLE (FLAGYL) tablet 2,000 mg 2,000 mg, oral, Once, On Sun04/09/19 at 1419, For 1 dose, Indications: Sexually Transmitted InfectionIndications:Sexu ally Transmitted Infection Given 04/09/2019 2:45 PM GLUE MAKER BONE 2,000 mg documented in this encounter Active and Recently Administered Medications Times are shown in GLUE MAKER BONE. Scheduled Medication Order 04/07/2019 04/08/2019 04/09/2019 cefTRIAXone (ROCEPHIN) injection 1,000 mg (COMPLETED) 1,000 mg, intramuscular, Once, On Sun04/09/19 at 1419, For 1 dose, Indications: Abdominal/Pelvic Infection, Sexually Transmitted Infection 1445 (New Bag - Prov ider: Rosy Crespo RN)1452 (Stopped - Provider: Rosy Crespo RN) lidocaine PF (XYLOCAINE) 10 mg/mL (1 %) preservative free injection 20 mg (COMPLETED) 20 mg (2 mL), other, Once, On Sun04/09/19 at 1419, For 1 dose 1445 (Given - Provid er: Rosy Crespo RN) metroNIDAZOLE (FLAGYL) tablet 2,000 mg (COMPLETED) 2,000 mg, oral, Once, On Sun04/09/19 at 1419, For 1 dose, Indications: Sexually Transmitted Infection 1445 (Given - Provid er: Rosy Crespo RN) documented in this encounter Care Teams Wood Heel Finisher Relationship Specialty Start Date End Date No, Physician PCP - General 12/26/17 04/23/20 No, Physician 01/10/17 documented as of this encounter
--- OUTSIDE RECORDS SUMMARY | 2024-06-13 23:59 | XMS_ITS | Encounter Summary ---
Author Organization [facility] Healthcare Address [address] [place] [address] Care Team Providers Care Field Worker Name Role Phone No, Physician Unavailable Miscellaneous, Not In File Primary Care Provider Unavailable Encounter Details Date Type Department Care Team (Late st Contact Info) Description 05/18/2017 2:49 PM REPATCHER Anesthesia Event [facility] Operating Room [address] [place] [address] [place] [address] [facility] [address] [place] [address] Mario Galindo, [address] [place] [address] Anesthesia Record Procedure Summary Procedure Name Responsible Anesthesiologist Anesthesia Start Time Anesthesia Stop Time Laparoscopic Cholecystectomy (Abdomen) Gabbie Vizcaino MD 05/18/17 1449 05/18/17 1611 Events Date Time Event Comment 05/18/2017 1449 In Room 1449 An Start 1449 An Start Data 1455 An Induction The patient was reevaluated immediately before moderate or deep sedation use and before anesthesia induction. 1455 An Intubation 1502 Anesthesia Ready 1518 Proc Start 1518 Incision Start 1554 Proc Fin 1556 An Extubation 1556 an stop data 1601 Out of Room 1607 Handoff to RN I completed my handoff [...] disposition at the time of handoff: PACU 1609 Handoff to RN I completed my handoff [...] disposition at the time of handoff: PACU 1609 Handoff to RN I completed my handoff [...] disposition at the time of handoff: PACU 1609 Handoff to RN I completed my handoff [...] disposition at the time of handoff: PACU 1610 Handoff to RN I completed my handoff [...] disposition at the time of handoff: PACU 1611 An Stop Meds Name Total midazolam 2 mg fentaNYL 200 mcg propofol 200 mg lidocaine (cardiac) syringe 2 % 100 mg rocuronium 40 mg ondansetron 4 mg dexamethasone 8 mg glycopyrrolate 0.6 mg neostigmine 3 mg ketorolac 30 mg sodium chloride 0.9% infusion 1,000 mL LR 100 mL * Agents Name O2 Sevoflurane Inspired Sevoflurane * Blood No blood administrations on file. Lines, Drains, and Airways Type Details Placement Removal Peripheral IV Placement Date: 05/18/17; Placement Time: 1228; Existing LDA Placed by: Other (Comment); Change Due: 05/22/17; Catheter Size: 22 G; Orientation: Left, Medial; Location: Forearm; Site Prep: Chlorhexidine ; Local Anes: None; Insertion Attempts: 1; Patient Tolerance: Tolerated well; Removal Date: 05/18/17; Removal Time: 194905/18/17 1228 by Archana Strange RN 05/18/171949 by Shona Ontiveros RN RETIRED Surgical Site 05/18/17; 1529; Abdomen; 07/09/17; 205505/18/17 1529 by Flavia Pascal RN 07/09/172055 by Lydia Briones RN documented in this encounter Social History Tobacco Use Types Packs/Day Years Used Date Smoking Tobacco: Never Smokeless Tobacco: Never Comments No Sex and Gender Information Value Date Recorded Sex Assigned at Not on file Legal Sex Female 8:56 PM REPATCHER Gender Identity Not on file Sexual Orientation Not on file documented as of this encounter OR Notes * Anesthesia Postprocedure Evaluation - Mario Galindo CRNA - 05/18/2017 4:25 PM CST Patient: Maeve Ross Procedure Summary Date: 05/18/17 Room / Location: [facility] OR [address] [place] [address] OPERATING ROOM Anesthesia Start: 1449 Anesthesia Stop: 1611 Procedure: Laparoscopic Cholecystectomy (N/A Abdomen) Diagnosis: Biliary colic (biliary colic) Provider: Lan Nash MD Responsible Provider: Gabbie Vizcaino MD Anesthesia Type: general ASA Status: 3 Anesthesia Type: general Last vitals BP 141/78 (05/18/17 1605) Temp Pulse 101 (05/18/17 1605) Resp 19 (05/18/17 1605) SpO2 100 % (05/18/17 1605) Anesthesia Post Evaluation Patient location during evaluation: PACU Patient participation: complete - patient participated Level of consciousness: fully awake Pain management: adequate Airway patency: adequate Evidence of recall: no Anesthetic complications: no Cardiovascular status: acceptable Respiratory status: acceptable Hydration status: acceptable Pt is: normothermic Nausea/Vomiting status: none TCHER * Anesthesia Postprocedure Evaluation - Gabbie Vizcaino MD - 05/18/2017 4:20 PM CST Patient: Maeve Ross Procedure Summary Date: 05/18/17 Room / Location: [facility] OR [address] [place] [address] OPERATING ROOM Anesthesia Start: 1449 Anesthesia Stop: 1611 Procedure: Laparoscopic Cholecystectomy (N/A Abdomen) Diagnosis: Biliary colic (biliary colic) Provider: Lan Nash MD Responsible Provider: Gabbie Vizcaino MD Anesthesia Type: general ASA Status: 3 Anesthesia Type: general Last vitals BP 141/78 (05/18/17 1605) Temp Pulse 101 (05/18/17 1605) Resp 19 (05/18/17 1605) SpO2 100 % (05/18/17 1605) Anesthesia Post Evaluation Patient location during evaluation: PACU Patient participation: complete - patient participated Level of consciousness: fully awake Airway patency: adequate Anesthetic complications: no Cardiovascular status: acceptable Respiratory status: acceptable Hydration status: acceptable Pt is: normothermic Nausea/Vomiting status: none TCHER * Anesthesia Preprocedure Evaluation - Gabbie Vizcaino MD - 05/18/2017 2:38 PM CST Anesthesia Evaluation Maeve Ross is a 17 y.o. female HISTORY Past Medical History Information obtained from: patient and chart. Endocrine / Other + Obesity (BMI >30) Patient Active Problem List Diagnosis ??? Biliary dyskinesia ??? BMI 45.0-49.9, adult ([facility]) ??? Epigastric pain History reviewed. No pertinent past medical history. Past Surgical History: Procedure Laterality Date ??? OTHER SURGICAL HISTORY myringotomy ??? OTHER SURGICAL HISTORY exploratory laparoscopic cyst on ovary OB History No data available Allergies Allergen Reactions ??? Penicillins Swelling HOME MEDICATIONS : HYDROcodone-acetaminophen (NORCO) 5-325 mg per tablet ondansetron ODT (ZOFRAN-ODT) 4 mg disintegrating tablet Current Facility-Administered Medications: ??? [MAR Hold] cefTRIAXone (ROCEPHIN) IV syringe 1,000 mg, 1,000 mg, intravenous, Q24H SAMI, 1,000 mg at 05/18/17 1005 ??? [MAR Hold] diphenhydrAMINE (BENADRYL) injection 25 mg, 25 mg, intravenous, Nightly PRN, 25 mg at 05/17/17 2116 ??? [MAR Hold] metroNIDAZOLE (FLAGYL) premix IVPB in sodium chloride 500 mg, 500 mg, intravenous, Q8H SAMI, Last Rate: 100 mL/hr at 05/18/17 0612, 500 mg at 05/18/17 0612 ??? [MAR Hold] morphine injection 2 mg, 2 mg, intravenous, Q3H PRN, 2 mg at 05/18/17 0917 ??? ondansetron ODT (ZOFRAN-ODT) disintegrating tablet 4 mg, 4 mg, oral, Q6H PRN OR ondansetron(ZOFRAN) injection 4 mg, 4 mg, intravenous, Q6H PRN, 4 mg at 05/18/17 0744 ??? sodium chloride 0.9% flush 0.5-20 mL, 0.5-20 mL, intra-catheter, Q8H SAMI, 10 mL at 05/17/17 1340 ??? sodium chloride 0.9% flush 0.5-20 mL, 0.5-20 mL, intra-catheter, PRN ??? sodium chloride 0.9% infusion, 75 mL/hr, intravenous, Continuous, Last Rate: 75 mL/hr at 05/18/17 1058, 75 mL/hr at 05/18/17 1058 Social History Smoking Status ??? Never Smoker Smokeless Tobacco ??? Never Used Alcohol use Not on file Drug Use No Family History Problem Relation Age of Onset ??? Anemia Mother ??? Cancer Father ??? Bladder Cancer Father ??? Heart disease Father ??? Stroke Father ??? Diabetes Father ??? Multiple sclerosis Father's Sister ??? Hearing loss Maternal Grandfather ??? Stroke Paternal Grandmother ??? Diabetes Paternal Grandmother ??? Hearing loss Paternal Grandfather ??? Diabetes Paternal Grandfather PAT Physical Exam Airway Exam: Mallampati: II Cervical ROM: FROM TM distance: 3 Jaw ROM: full Cardiovascular Exam: Rate: regular Rhythm: regular Pulmonary Exam: LCTA EENT Exam: trachea midline Vitals: 05/18/17 1351 BP: 137/83 Pulse: 91 Resp: 18 Temp: 36.7 ??C (98.1 ??F) SpO2: 98% PT: No results found for requested labs within last 720 hours. INR: No results found for requested labs within last 720 hours. APTT: No results found for requested labs within last 720 hours. Hgb A1C: No results found for requested labs within last 720 hours. CBC RBC: 05/16/2017: 4.29 M/cumm RDW: No results found for requested labs within last 720 hours. MCHC: 05/16/2017: 32.2 g/dL* MCH: 05/16/2017: 25.4 pg* MCV: 05/16/2017: 79.0 fL* Hct: 05/16/2017: 33.9 %* Hgb: 05/16/2017: 10.9 g/dL* WBC: 05/16/2017: 8.61 K/cumm MPV: 05/16/2017: 11.5 fL Platelets: 05/16/2017: 254 K/cumm RDW CV: 05/16/2017: 14.4 % RDW Sd: 05/16/2017: 40.8 fL BMP Glucose: 05/16/2017: 93 mg/dL Calcium: 05/16/2017: 8.6 mg/dL Sodium: 05/16/2017: 139 mmol/L Potassium: 05/16/2017: 4.4 mmol/L CO2: 05/16/2017: 27 mmol/L Chloride: 05/16/2017: 100 mmol/L BUN: 05/16/2017: 11 mg/dL Creatinine: 05/16/2017: 0.65 mg/dL DOS Physical Exam Medical history, medications, and allergies reviewed. Attestation: This PAT evaluation 05/18/2017. Airway Exam: Mallampati: II Cervical ROM: FROM TM distance: >4 Jaw ROM: full Cardiovascular Exam: Rate: regular Rhythm: regular Pulmonary Exam: LCTA, bilat Current state: Patients current state is cooperative. Anesthesia Plan ASA 3 Planned anesthesia: General Team communication plan: oral ET tube Induction: Induction: intravenous. Postoperative Plan: Postoperative administration opioids intended. No postoperative mechanical ventilation intended. Informed Consent: Discussed plan with DICE TABLE OPERATOR. Anesthesia plan and risks discussed with patient. Consent and Attending signature: I and/or my designee have discussed the anesthesia plan, benefits, possible alternatives, parental presence at time of induction (if indicated), and clinically relevant risks that may include dental injury, unintentional awareness, and/or other complications. The patient and/or parent/legal guardian understand, and agree to proceed. All questions answered. TCHER TCHER TCHER documented in this encounter Miscellaneous Notes * Addendum Note - Mario Galindo CRNA - 05/18/2017 4:27 PM CST Addendum created 05/18/17 1627 by Mario Galindo CRNA Sign clinical note TCHER documented in this encounter Plan of Treatment Not on file documented as of this encounter Visit Diagnoses Not on filedocumented in this encounter Administered Medications Inactive Administered Medications - up to 3 most recent administrations Medication Order MAR Action Action Date Dose Rate Site dexamethasone (DECADRON) injection intravenous, As needed, Starting on Sun05/18/17 at 1505, Anesthesia Intra-op Given 05/18/2017 3:05 PM REPATCHER 8 mg fentaNYL (SUBLIMAZE) preservative free injection intravenous, As needed, Starting on Sun05/18/17 at 1445, Anesthesia Intra-op Given 05/18/2017 3:50 PM REPATCHER 50 mcg Given 05/18/2017 3:25 PM REPATCHER 50 mcg Given 05/18/2017 3:00 PM REPATCHER 50 mcg glycopyrrolate (ROBINUL) injection intravenous, As needed, Starting on Sun05/18/17 at 1545, Anesthesia Intra-op Given 05/18/2017 3:45 PM REPATCHER 0.6 mg ketorolac (TORADOL) injection As needed, Starting on Sun05/18/17 at 1505, Anesthesia Intra-op Given 05/18/2017 3:05 PM REPATCHER 30 mg Lactated Ringer's (LR) infusion Continuous PRN, Starting on Sun05/18/17 at 1545, Anesthesia Intra-op New Bag 05/18/2017 3:45 PM REPATCHER lidocaine (cardiac) (XYLOCAINE) preservative free injection intravenous, As needed, Starting on Sun05/18/17 at 1450, Anesthesia Intra-op, Indications: Ventricular ArrhythmiasIndications:Ventricular Arrhythmias Given 05/18/2017 2:50 PM REPATCHER 100 mg midazolam (VERSED) preservative free injection intravenous, As needed, Starting on Sun05/18/17 at 1445, Anesthesia Intra-op Given 05/18/2017 2:45 PM REPATCHER 2 mg neostigmine (PROSTIGMIN) injection intravenous, As needed, Starting on Sun05/18/17 at 1545, Anesthesia Intra-op Given 05/18/2017 3:45 PM REPATCHER 3 mg ondansetron (ZOFRAN) injection intravenous, As needed, nausea, vomiting, Starting on Sun05/18/17 at 1545, Anesthesia Intra-op Given 05/18/2017 3:45 PM REPATCHER 4 mg propofol (DIPRIVAN) IV intravenous, As needed, Starting on Sun05/18/17 at 1453, Anesthesia Intra-op Given 05/18/2017 2:53 PM REPATCHER 200 mg rocuronium (ZEMURON) injection intravenous, As needed, Starting on Sun05/18/17 at 1450, Anesthesia Intra-op Given 05/18/2017 2:50 PM REPATCHER 40 mg sodium chloride 0.9% infusion 75 mL/hr, intravenous, Continuous, Starting on Sun05/15/17 at 1745 New Bag 05/18/2017 2:49 PM REPATCHER New Bag 05/18/2017 10:58 AM REPATCHER 75 mL/hr 75 mL/hr New Bag 05/17/2017 5:54 AM REPATCHER 75 mL/hr 75 mL/hr documented in this encounter Orders Medications Ordered That Ed ht Not Have Been Administered Count Last Ordered Date First Ordered Date ketorolac (TORADOL) injection 1 05/18/2017 documented in this encounter Care Teams Field Worker Relationship Specialty Start Date End Date Miscellaneous, Not In File PCP - General 02/15/17 No, Physician 01/10/17 documented as of this encounter
--- OUTSIDE RECORDS SUMMARY | 2024-06-13 23:59 | XMS_ITS | Encounter Summary ---
Author Organization [facility] Address [address] [place] [address] Care Team Providers Care Data Control Clerk Supervisor Name Role Phone No, Physician Unavailable Miscellaneous, Not In File Primary Care Provider Unavailable Reason for Visit * Reason Comments Abdominal Pain upper abdominal pain Encounter Details Date Type Department Care Team (Late st Contact Info) Description 05/15/2017 2:30 PM FRAME AND SCRAP CRUSHER Office Visit [facility] [address] [place] [address] Nidia Vilchis NP [address] [facility] [address] [place] [address] Epigastric pain (Primary Dx) Social History Tobacco Use Types Packs/Day Years Used Date Smoking Tobacco: Never Smokeless Tobacco: Never Comments Unknown Sex and Gender Information Value Date Recorded Sex Assigned at Not on file Legal Sex Female 8:56 PM FRAME AND SCRAP CRUSHER Gender Identity Not on file Sexual Orientation Not on file documented as of this encounter Last Filed Vital Signs Vital Sign Reading Time Taken Comments Blood Pressure 140/82 05/15/2017 2:10 PM FRAME AND SCRAP CRUSHER Pulse 88 05/15/2017 2:10 PM FRAME AND SCRAP CRUSHER Temperature - - Respiratory Rate - - Oxygen Saturation - - Inhaled Oxygen Concentration - - Weight 128.1 kg (282 lb 6.4 oz) 05/15/2017 2:10 PM FRAME AND SCRAP CRUSHER Height 163.2 cm (5' 4.25 ) 05/15/2017 2:10 PM CS T Body Mass Index 48.1 05/15/2017 2:10 PM FRAME AND SCRAP CRUSHER documented in this encounter Progress Notes * Nidia Vilchis NP - 05/15/2017 2:30 PM CST Subjective/Objective Patient ID: Maeve Ross is a 17 y.o. female. Chief Complaint Abdominal Pain (upper abdominal pain) Abdominal Pain This is a new problem. Episode onset: 2-3 moths. The onset quality is gradual (much worse in the last week). The problem occurs constantly. The problem has been gradually worsening. The pain is located in the epigastric region and RUQ. The pain is at a severity of 5/10. The pain is moderate. The quality of the pain is aching, a sensation of fullness and sharp. The abdominal pain does not radiate.Associated symptoms include anorexia, constipation, diarrhea, a fever, nausea and vomiting. The pain is aggravated by certain positions and eating. The pain is relieved by nothing. She has tried oralnarcotic analgesics (zofran) for the symptoms. The treatment provided mild relief. Her past medicalhistory is significant for abdominal surgery and gallstones. Review of Systems Constitutional: Positive for diaphoresis and fever. HENT: Negative. Eyes: Negative. Respiratory: Negative. Cardiovascular: Negative. Gastrointestinal: Positive for abdominal pain, anorexia, constipation, diarrhea, nausea and vomiting. Dyspepsia Endocrine: Negative. Genitourinary: Negative. Musculoskeletal: Positive for back pain. Skin: Negative. Allergic/Immunologic: Negative. Neurological: Positive for dizziness. Hematological: Negative. Psychiatric/Behavioral: Negative. Breast: Negative. Physical Exam Constitutional: She is oriented to person, place, and time. She appears well- developed. She appearsdistressed. HENT: Head: Normocephalic and atraumatic. Eyes: Right eye exhibits discharge. Left eye exhibits no discharge. No scleral icterus. Neck: Normal range of motion. Cardiovascular: Normal rate and regular rhythm. Pulmonary/Chest: Effort normal and breath sounds normal. Abdominal: Soft. Bowel sounds are normal. She exhibits no distension and no mass. There is tenderness (epigastric and right upper quadrant, positive bello's ). No hernia. Neurological: She is alert and oriented to person, place, and time. Skin: Skin is warm. Capillary refill takes less than 2 seconds. No rash noted. She is diaphoretic. No erythema. No pallor. Psychiatric: She has a normal mood and affect. Her behavior is normal. Judgment and thought contentnormal. Assessment/Plan Diagnoses and all orders for this visit: Epigastric pain (Primary) Assessment & Plan: Possible acute cholecystitis, will admit to hospital and give fluids and continue work up for abdominal pain and get pain and nausea under control E AND SCRAP CRUSHER documented in this encounter Miscellaneous Notes * Assessment & Plan Note - Nidia Vilchis NP - 05/17/2017 9:31 PM FRAME AND SCRAP CRUSHER Associated Problem(s): Epigastric pain Possible acute cholecystitis, will admit to hospital and give fluids and continue work up for abdominal pain and get pain and nausea under control E AND SCRAP CRUSHER documented in this encounter Plan of Treatment Not on file documented as of this encounter Visit Diagnoses Diagnosis Epigastric pain- Primary Abdominal pain, epigastric documented in this encounter Historical Medications * This list may reflect changes made after this encounter. ondansetron ODT (ZOFRAN-ODT) 4 mg disintegrating tablet DIS ONE T PO Q 8 H PRN N 0 02/15/2017 07/09/2017 HYDROcodone-acetamino phen (NORCO) 5-325 mg per tabletIndications:Celestino n TK 1 TO 2 TS PO Q 4 H PRN P 0 05/14/2017 07/09/2017 added in this encounter Care Teams Data Control Clerk Supervisor Relationship Specialty Start Date End Date Miscellaneous, Not In File PCP - General 02/15/17 No, Physician 01/10/17 documented as of this encounter
--- OUTSIDE RECORDS SUMMARY | 2024-06-13 23:59 | XMS_ITS | Encounter Summary ---
Author Organization [facility] Healthcare Address [address] [place] [address] Care Team Providers Care Line Erector Apprentice Name Role Phone No, Physician Unavailable Miscellaneous, Not In File Primary Care Provider Unavailable Reason for Visit * Reason Comments Fall Encounter Details Date Type Department Care Team (Late st Contact Info) Description 07/09/2017 7:09 PM RETAIL PERSONAL BANKER - 07/09/2017 8:56 PM RETAIL PERSONAL BANKER Emergency [facility] Emergency Department [address] [place] [address] Kavitha Lange MD [address] [place] [address] Fall, initial encounter (Primary Dx); Sprain of cervical neck, initial encounter; Sprain of ligaments of lumbar spine, initial encounter; Musculoskeletal back pain Discharge Disposition: Discharge to home or self care Social History Tobacco Use Types Packs/Day Years Used Date Smoking Tobacco: Never Smokeless Tobacco: Never Comments No Sex and Gender Information Value Date Recorded Sex Assigned at Not on file Legal Sex Female 8:56 PM RETAIL PERSONAL BANKER Gender Identity Not on file Sexual Orientation Not on file documented as of this encounter Last Filed Vital Signs Vital Sign Reading Time Taken Comments Blood Pressure 132/57 07/09/2017 7:26 PM RETAIL PERSONAL BANKER Pulse 106 07/09/2017 7:26 PM RETAIL PERSONAL BANKER Temperature 36.6 ??C (97.8 ??F) 07/09/2017 7:26 PM CS T Respiratory Rate 16 07/09/2017 7:26 PM RETAIL PERSONAL BANKER Oxygen Saturation 99% 07/09/2017 7:26 PM RETAIL PERSONAL BANKER Inhaled Oxygen Concentration - - Weight 124.7 kg (275 lb) 07/09/2017 7:26 PM RETAIL PERSONAL BANKER Height 160 cm (5' 3 ) 07/09/2017 7:26 PM RETAIL PERSONAL BANKER Body Mass Index 48.71 07/09/2017 7:26 PM RETAIL PERSONAL BANKER documented in this encounter Discharge Instructions * Discharge Instructions* Vika Dunn NP - 07/09/2017 8:45 PM RETAIL PERSONAL BANKER Use Biofreeze, icy hot, bengay, epsom salt baths, ice and heat for muscle pain relief Do not drive while taking Flexeril as it may cause drowsiness. [place] PERSONAL BANK[place] * Attachments The following attachments cannot be sent through Care Everywhere. * Acute Low Back Pain (AfterCare(R) Instructions(ER/ED)) (Latvian) * Neck Sprain or Strain (Latvian) * Back Sprain/Strain (Latvian) documented in this encounter Medications at Time of Discharge cyclobenzaprine (FLEXERIL) 10 mg tabletIndication s:Muscle Spasm Take 1 tablet (10 mg total) by mouth 2 (two) times a day as needed for muscle spasms. 20 tablet 07/09/2017 8 lidocaine-mentho l 4-1 % adhesive patch,medicatedI ndications:Minor Skin Wound Pain Apply 1 patch topically 2 (two) times a day as needed (pain). 6 patch 07/09/2017 8 naproxen (NAPROSYN,ALEVE) 500 mg tabletIndication s:Pain Take 1 tablet (500 mg total) by mouth 2 (two) times a day as needed for pain. Take with food. 30 tablet 07/09/2017 8 documented as of this encounter Ordered Prescriptions Prescription Sig Dispense Quantity Refills Last Filled Start Date End Date naproxen (NAPROSYN,ALEVE) 500 mg tabletIndications: Pain Take 1 tablet (500 mg total) by mouth 2 (two) times a day as needed for pain. Take with food. 30 tablet 07/09/2017 8 cyclobenzaprine (FLEXERIL) 10 mg tabletIndications: Muscle Spasm Take 1 tablet (10 mg total) by mouth 2 (two) times a day as needed for muscle spasms. 20 tablet 07/09/2017 8 lidocaine-menthol 4-1 % adhesive patch,medicatedInd ications:Minor Skin Wound Pain Apply 1 patch topically 2 (two) times a day as needed (pain). 6 patch 07/09/2017 8 documented in this encounter Discharge Disposition Disposition Code Departure Means Destination Discharge to home or self care documented in this encounter ED Notes * Lydia Briones RN - 07/09/2017 7:31 PM CST Presents to ED with c/o neck and back pain following a fall while in the bathtub in which pt reports she slid off of a shower chair. Pt denies pain during initial fall, but reports pain began when she got up from the floor of the tub. Pain worse with movement. [place] * Vika Dunn NP - 07/09/2017 7:30 PM CST HPI Chief Complaint Patient presents with ??? Fall 17 y.o. year old female with PMHX History reviewed. No pertinent past medical history.; accompaniedby Father presents to ED with c/o fall. Denies fever, chills, nausea, vomiting, diarrhea, SOB, CP, numbness, tingling. Pt was sitting in shower chair and slid out. Pt has pain to neck and lower back. Pt has not taken OTC medication for relief of pain. Injury occurred 30 minutes ago. No LOC or altered mental status. Pt LMP started 3 days ago. Patient History Patient Active Problem List Diagnosis Date Noted ??? Biliary dyskinesia 05/17/2017 ??? BMI 45.0-49.9, adult (CMS/HCC) 05/17/2017 ??? Epigastric pain 05/17/2017 History reviewed. No pertinent past medical history. [...] Smokeless tobacco: Never Used ??? Alcohol use Not on file Social History Social History Narrative ??? No [...] Negative. Negative for dysuria and hematuria. Musculoskeletal: Positive for back pain and neck pain. Negative for arthralgias. Skin: Negative. Negative for color change and rash. Neurological: Negative. Negative for seizures and syncope. Psychiatric/Behavioral: Negative. All other systems reviewed and are negative. Physical Exam ED Triage Vitals Temp Pulse Resp BP SpO2 -- -- -- -- -- Temp src Heart Rate Source Patient Position BP Location FiO2 (%) -- -- -- -- -- Physical Exam Constitutional: She is oriented to person, place, and time. Vital signs are normal. She appears well-developed and well-nourished. Non-toxic appearance. She does not have a sickly appearance. She does not appear ill. No distress. HENT: Head: Normocephalic and atraumatic. Right Ear: Hearing, tympanic membrane, external ear and ear canal normal. Left Ear: Hearing, tympanic membrane, external ear and ear canal normal. Nose: Nose normal. Right sinus exhibits no maxillary sinus tenderness and no frontal sinus tenderness. Left sinus exhibits no maxillary sinus tenderness and no frontal sinus tenderness. Mouth/Throat: Uvula is midline, oropharynx is clear and moist and mucous membranes are normal. No oropharyngeal exudate. Tonsils are 1+ on the right. Tonsils are 1+ on the left. No tonsillar exudate. Eyes: Conjunctivae and EOM are normal. Pupils are equal, round, and reactive to light. Right eye exhibits no discharge. Left eye exhibits no discharge. No scleral icterus. Neck: Trachea normal and phonation normal. Neck supple. Spinous process tenderness present. Decreased range of motion present. No Brudzinski's sign and no Kernig's sign noted. No thyromegaly present. Cardiovascular: Normal rate, regular rhythm, normal heart sounds, intact distal pulses and normal pulses. Exam reveals no gallop and no friction rub. No murmur heard. Pulmonary/Chest: Effort normal and breath sounds normal. No respiratory distress. She has no decreased breath sounds. She has no wheezes. She has no rhonchi. She has no rales. She exhibits no tenderness. Abdominal: Soft. Bowel sounds are normal. She exhibits no distension and no mass. There is no tenderness. There is no rebound and no guarding. No hernia. Musculoskeletal: She exhibits no edema, tenderness or deformity. Cervical back: She exhibits decreased range of motion and bony tenderness. Lumbar back: She exhibits decreased range of motion and bony tenderness. SPINE EXAM: full active range of motion throughout spine although pain reproduced in exact location, severity, and type in left lumbar region with bending at waist; pain with palpation over the left lumbar musculature region; No pain to palpation or percussion of spine and without step-off, deformity, ecchymosis, erythema, warmth, or swelling; Positive straight leg raise test bilaterally; DTRs intact; intact distal pulse, motor, and sensory throughout. Neurological: She is alert and oriented to person, place, and time. She has normal strength and normal reflexes. No cranial nerve deficit. She displays a negative Romberg sign. Skin: Skin is warm. Capillary refill takes less than 2 seconds. No rash noted. She is not diaphoretic. No erythema. No pallor. Psychiatric: She has a normal mood and affect. Her behavior is normal. Nursing note and vitals reviewed. ED Course & MDM ED Course as of Jul 09 2045 Mon Jul 09, [id number] Discussed x-ray results with patient. Advised to use Tylenol for relief of fever and pain, to not drive while taking flexeril, to follow up with PMD for further evaluation and treatment. Pt verbalized understanding. All questions answered at this time. Pt states pain is 1-2/10 and able to move neck more. [GV] ED Course User Index [GV] Vika Dunn NP [facility] Fall, initial encounter Sprain of cervical neck, initial encounter Sprain of ligaments of lumbar spine, initial encounter Musculoskeletal back pain Vika Dunn NP 07/09/172045 Cosigned by Shayne Stratton MD at 07/09/2017 11:39 PM [place] PERSONAL [place] Associated attestation - Shayne Stratton MD - 07/09/2017 11:39 PM RETAIL PERSONAL BANKER ED Attestation Based on the medical record the care appears appropriate. documented in this encounter Plan of Treatment Not on file documented as of this encounter Procedures Procedure Name Priority Date/Time Associated Diagnosis Comments XR SPINE LUMBAR ROUTINE ED 07/09/2017 7:57 PM RETAIL PERSONAL BANKER XR SPINE CERVICAL COMPLETE 4 OR 5 VW ED 07/09/2017 7:57 PM RETAIL PERSONAL BANKER documented in this encounter Results * XR Lumbar Spine Routine (07/09/2017 7:57 PM RETAIL PERSONAL BANKER) Anatomical Region Laterality Modality L-spine N/A Computed Radiogr aphy Impressions 07/09/2017 8:12 PM RETAIL PERSONAL BANKER NORMAL LUMBAR SPINE. Electronically signed by: Kevin Garza M.D. Narrative 07/09/2017 8:12 PM RETAIL PERSONAL BANKER XR SPINE LUMBAR ROUTINE HISTORY: Low back pain. ??Extremity numbness status post fall. COMPARISON: None available. FINDINGS: AP, lateral, and bilateral oblique projections of the lumbar spine demonstrate normal alignment with no evidence of fracture. The soft tissues are normal. Procedure Note Kevin Garza MD - 07/09/2017 XR SPINE LUMBAR ROUTINE HISTORY: Low back pain. Extremity numbness status post fall. COMPARISON: None available. FINDINGS: AP, lateral, and bilateral oblique projections of the lumbar spine demonstrate normal alignment with no evidence of fracture. The soft tissues are normal. IMPRESSION: NORMAL LUMBAR SPINE. Electronically signed by: Kevin Garza M.D. Vika Dunn LUSTERER IMG XR PROCEDURES Final Res ult * XR Spine Cervical Complete 4 Or 5 Vw (07/09/2017 7:57 PM RETAIL PERSONAL BANKER) Anatomical Region Laterality Modality Spine N/A Computed Radiogr aphy Impressions 07/09/2017 8:12 PM RETAIL PERSONAL BANKER NORMAL CERVICAL SPINE. Electronically signed by: Kevin Garza M.D. Narrative 07/09/2017 8:12 PM RETAIL PERSONAL BANKER XR SPINE CERVICAL COMPLETE 4 OR 5 VW HISTORY: Neck pain. ??Extremity numbness and tingling. COMPARISON: None available. FINDINGS: AP, odontoid, lateral, and bilateral oblique projections of the cervical spine demonstrate normal alignment with no evidence of fracture. The prevertebral soft tissues are normal. Procedure Note Kevin Garza MD - 07/09/2017 XR SPINE CERVICAL COMPLETE 4 OR 5 VW HISTORY: Neck pain. Extremity numbness and tingling. COMPARISON: None available. FINDINGS: AP, odontoid, lateral, and bilateral oblique projections of the cervical spine demonstrate normal alignment with no evidence of fracture. The prevertebral soft tissues are normal. IMPRESSION: NORMAL CERVICAL SPINE. Electronically signed by: Kevin Garza M.D. Vika Dunn LUSTERER IMG XR PROCEDURES Final Res ult documented in this encounter Visit Diagnoses Diagnosis Fall, initial encounter- Primary Sprain of cervical neck, initial encounter Sprain of ligaments of lumbar spine, initial encounter Musculoskeletal back pain documented in this encounter Administered Medications Inactive Administered Medications - up to 3 most recent administrations Medication Order MAR Action Action Date Dose Rate Site nalbuphine (NUBAIN) injection 20 mg 20 mg, intramuscular, Once, On Sun07/09/17 at 1930, For 1 dose, Indications: PainIndications:Pain Given 07/09/2017 8:21 PM RETAIL PERSONAL BANKER 20 mg Left Deltoid documented in this encounter Discontinued Medications Medication Sig Discontinue Reason Start Date End Da te oxyCODONE-acetaminophen (PERCOCET) 5-325 mg per tabletIndications:Pain Take 1-2 tablets by mouth every 4 (four) hours as needed for pain. Therapy completed 05/18/2017 07/09/2017 ondansetron ODT (ZOFRAN-ODT) 4 mg disintegrating tablet Take 1 tablet (4 mg total) by mouth 4 (four) times a day as needed for nausea or vomiting. Therapy completed 05/18/2017 07/09/2017 ondansetron ODT (ZOFRAN-ODT) 4 mg disintegrating tablet DIS ONE T PO Q 8 H PRN N Therapy completed 02/15/2017 07/09/2017 HYDROcodone-acetaminophen (NORCO) 5-325 mg per tabletIndications:Pain TK 1 TO 2 TS PO Q 4 H PRN P Therapy completed 05/14/2017 07/09/2017 documented as of this encounter Active and Recently Administered Medications Times are shown in RETAIL PERSONAL BANKER. Scheduled Medication Order 07/07/2017 07/08/2017 07/09/2017 nalbuphine (NUBAIN) injection 20 mg (COMPLETED) 20 mg, intramuscular, Once, On 07/09/17 at 1930, For 1 dose, Indications: Pain 2020 (Given - Provid er: Lydia Briones RN) documented in this encounter Orders Medications Ordered That Ed ht Not Have Been Administered Count Last Ordered Date First Ordered Date nalbuphine (NUBAIN) injection 20 mg 1 07/09 documented in this encounter Care Teams Line Erector Apprentice Relationship Specialty Start Date End Date Miscellaneous, Not In File PCP - General 02/15/17 No, Physician 01/10/17 documented as of this encounter
--- OUTSIDE RECORDS SUMMARY | 2024-06-13 23:59 | XMS_ITS | Encounter Summary ---
Author Organization [facility] Healthcare Address [address] [place] [address] Care Team Providers Care Loader Operator Name Role Phone No, Physician Unavailable No, Physician Primary Care Provider [phone] Reason for Visit * Reason Comments Headache Encounter Details Date Type Department Care Team (Late st Contact Info) Description 12/26/2017 4:19 PM CDT - 12/26/2017 7:00 PM CDT Emergency [facility] Emergency Department [address] [place] [address] Carlos Awan MD [address] [place] [address] Intractable paroxysmal hemicrania, unspecified chronicity pattern (Primary Dx) Discharge Disposition: Discharge to home or self care Social History Tobacco Use Types Packs/Day Years Used Date Smoking Tobacco: Never Smokeless Tobacco: Never Comments No Sex and Gender Information Value Date Recorded Sex Assigned at Not on file 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 Gender Identity Not on file Sexual Orientation Not on file documented as of this encounter Last Filed Vital Signs Vital Sign Reading Time Taken Comments Blood Pressure 160/89 12/26/2017 3:07 PM CDT Pulse 103 12/26/2017 3:05 PM CDT Temperature 37 ??C (98.6 ??F) 12/26/2017 3:05 PM CDT Respiratory Rate 16 12/26/2017 3:05 PM CDT Oxygen Saturation 98% 12/26/2017 3:05 PM CDT Inhaled Oxygen Concentration - - Weight 120.2 kg (265 lb) 12/26/2017 3:06 PM CDT Height 165.1 cm (5' 5 ) 12/26/2017 3:06 PM CDT Body Mass Index 44.1 12/26/2017 3:06 PM CDT documented in this encounter Discharge Instructions * Attachments The following attachments cannot be sent through Care Everywhere. * Headache, Unspecified (Israeli) documented in this encounter Medications at Time of Discharge ibuprofen (ADVIL,MOTRIN) 800 mg tablet Take 1 tablet (800 mg total) by mouth 3 (three) times a day. 21 tablet 12/05/2017 09/25/2018 documented as of this encounter Ordered Prescriptions Prescription Sig Dispense Quantity Refills Last Filled Start Date End Date butalbital-acetami nophen-caffeine (FIORICET, ESGIC) 50-325-40 mg per tablet Take 1 tablet by mouth every 4 (four) hours as needed for headaches (1 tablet for mild to moderate pain or 2 tablets for severe pain.). Do not exceed 6 tablets/day. 20 tablet 12/26/2017 8 documented in this encounter Discharge Disposition Disposition Code Departure Means Destination Discharge to home or self intermediate documented in this encounter ED Notes * Carlos Awan MD - 12/26/2017 4:26 PM CDT HPI Chief Complaint Patient presents with ??? Headache HPI 7:04 PM 12/26/17summer Abhay Ross is a 17 y.o. female presenting to the ED complaining of occipital headache which began five days ago. She also c/o blurred vision. No hx of headaches. No fever, chills,or weakness. Pt states it feels like I got hit in the back of the head. There are no other complaints at this time. Additional PMHx: Obesity, anemia Social History: None PCP: None Upon chart review, pt has no pertinent past hospitalizations or visits. Patient History Past Medical History: Diagnosis Date [...] Used ??? Alcohol use Not on file Review of Systems Review of Systems Constitutional: Negative for chills, fatigue and fever. HENT: Negative for congestion, ear pain, rhinorrhea, sneezing and sore throat. Eyes: Positive for visual disturbance (blurred vision). Respiratory: Negative for cough, shortness of breath and wheezing. Cardiovascular: Negative for chest pain and palpitations. Gastrointestinal: Negative for abdominal pain, constipation, diarrhea, nausea and vomiting. Genitourinary: Negative for dysuria and frequency. Musculoskeletal: Negative for arthralgias, back pain, myalgias and neck pain. Skin: Negative for color change, pallor, rash and wound. Neurological: Positive for headaches (occipital). Negative for dizziness, syncope, weakness and light-headedness. All other systems reviewed and are negative. Physical Exam ED Triage Vitals Temp Pulse Resp BP SpO2 12/26/17 1505 12/26/17 1505 12/26/17 1505 12/26/17 1507 12/26/17 1505 37 ??C (98.6 ??F) 103 16 160/89 98 % Temp src Heart Rate Source Patient Position BP Location FiO2 (%) 12/26/17 1505 -- -- -- -- Oral Physical Exam Constitutional: She appears well-developed and well-nourished. HENT: Head: Normocephalic and atraumatic. Mouth/Throat: Oropharynx is clear and moist. Eyes: Pupils are equal, round, and reactive to light. EOM are normal. Neck: Neck supple. Cardiovascular: Normal rate, regular rhythm and normal heart sounds. Pulmonary/Chest: Effort normal and breath sounds normal. Abdominal: Soft. Musculoskeletal: Normal range of motion. Neurological: She is alert. Skin: Skin is warm. Nursing note and vitals reviewed. Procedures MDM Labs Reviewed CBC WITH AUTO DIFFERENTIAL - Abnormal Result Value WBC 10.5 (*) Hgb 11.7 (*) Hct 38.6 Plt 294 MPV 11.8 RBC 4.85 MCV 79.6 (*) MCH 24.1 (*) MCHC 30.3 (*) RDW CV 15.2 (*) RDW SD 44.0 NRBC Abs 0.00 Narrative: DIFFERENTIAL AUTO - Abnormal Neutrophil absolute 7.5 (*) Immature granulocyte absolute 0.0 Lymphocytes absolute 2.3 Monocyte absolute 0.6 Eosinophils absolute 0.1 Basophils, abs 0.0 Neutrophils 71.5 Immature granulocytes 0.5 Lymphocytes 21.7 Monocytes 5.4 Eosinophils 0.6 Basophils 0.3 Narrative: COMPREHENSIVE METABOLIC PANEL Sodium 138 Potassium, pl 4.2 Chloride 104 CO2 26 Anion Gap 12 BUN 10 Creatinine 0.81 Glucose 93 Calcium 9.2 Bilirubin, total 0.30 Protein, pl 7.2 Albumin 3.3 Alk phos 106 ALT 24 AST 22 Narrative: EGFR GFR 105 Narrative: CT Head WO Contrast Final Result Negative study. No bleed or mass. Electronically signed by: Evelyne Iraheta M.D. BP 160/89 Pulse 103 Temp 37 ??C (98.6 ??F) (Oral) Resp 16 Ht 165.1 cm (5' 5 ) Wt 120.2 kg(265 lb) LMP 12/26/2017 (Approximate) SpO2 98% BMI 44.10 kg/m?? MDM ED Course as of Dec 27 1903 Time: 12/26 1899 Comment: Rechecked patient. Condition is improved. Discussed the results of ED findings, and the plan for discharge. Recommended follow up with PCP or return to ED for new or worsening symptoms. Patient understands and agrees with plan. All other questions have been addressed. By: Alanna Strange Clinical Impression: Intractable paroxysmal hemicrania, unspecified chronicity pattern This note is prepared by Alanna Strange, acting as a Scribe for Carlos Awan MD. Signed by juan Hawkins, 12/26/2017, 7:04 PM. I, Carlos Awan MD, have personally preformed the services described in the documentation, reviewed the documentation, as recorded by the scribe in my presence, and it accurately and completely records my words and actions. Carlos Awan MD 12/26/17 1908 documented in this encounter Miscellaneous Notes * ED Re-evaluation Note - Anitha Duggan NP - 12/26/2017 3:04 PM CDT Pt complaining of a posterior headache for 4 days. Pt states today the back of her head feels swollen and tender. Pt also states blurred vision with white spots. Denies nausea or vomiting. No other complaints. Anitha Duggan NP 12/26/17 4500 documented in this encounter Plan of Treatment Not on file documented as of this encounter Procedures Procedure Name Priority Date/Time Associated Diagnosis Comments CT HEAD WO CONTRAST ED 12/26/2017 6 :39 PM CDT EGFR STAT 12/26/2017 5:05 PM CDT DIFFERENTIAL AUTO STAT 12/26/2017 5:0 5 PM CDT CBC WITH AUTO DIFFERENTIAL STAT 12/26/2017 5:05 PM CDT COMPREHENSIVE METABOLIC PANEL STAT 12/26/2017 5:05 PM CDT documented in this encounter Results * CT Head WO Contrast (12/26/2017 6:39 PM CDT) Anatomical Region Laterality Modality Head and Neck N/A Computed Tomogra phy 12/26/2017 6:53 PM CDT Impressions 12/26/2017 6:54 PM CDT Negative study. ??No bleed or mass. Electronically signed by: Evelyne Iraheta M.D. Narrative 12/26/2017 6:54 PM CDT RESULT: HISTORY: Is a 17-year-old female who presents with severe headaches. Comparison made with the previous study dated 08/20/2017. TECHNIQUE: Axial images were obtained through the brain with thin sections and viewed both at soft tissue and bone window settings. FINDINGS: The 4th, 3rd and lateral ventricles are normal in size and position. Cerebral sulci are not prominent. ??No intracerebral hemorrhage or extra-axial fluid collection. ??Images obtained at bone window settings reveal the cranial vault to be intact. ??Mastoid air cells and paranasal sinuses are normally aerated. Procedure Note Evelyne Iraheta MD - 12/26/2017 RESULT: HISTORY: Is a 17-year-old female who presents with severe headaches. Comparison made with the previous study dated 08/20/2017. TECHNIQUE: Axial images were obtained through the brain with thin sections and viewed both at soft tissue and bone window settings. FINDINGS: The 4th, 3rd and lateral ventricles are normal in size and position. Cerebral sulci are not prominent. No intracerebral hemorrhage or extra-axial fluid collection. Images obtained at bone window settings reveal the cranial vault to be intact. Mastoid air cells and paranasal sinuses are normally aerated. IMPRESSION: Negative study. No bleed or mass. Electronically signed by: Evelyne Iraheta M.D. Carlos Awan MD IMG CT PROCEDURES Final Result * eGFR (12/26/2017 5:05 PM CDT) eGFR 105 mL/min/1.7 3 m2 [facility] Comment: Interpretive Data Reference Interval Normal ?>/= 90 mL/min/1.73m2 Mildly decreased* ? 60 - 89 mL/min/1.73m2 Mildly to moderately decreased ?45 - 59 mL/min/1.73m2 Moderately to severely decreased ??30 - 44 mL/min/1.73m2 Severely decreased ?15 - 29 mL/min/1.73m2 Kidney Failure ?< 15 ??mL/min/1.73m2 *Relative to young adult level If -Singaporean multiply value by 1.16. Estimated glomerular filtration [...] was last reviewed 2015. Blood specimen (specimen) 12/26/2017 5:05 PM CDT 12/26/2017 5:11 PM CDT Narrative [facility] - 12/26/2017 5:36 PM CDT Anitha Duggan NP LAB BLOOD ORDERABLES Final Result [facility] [address] Department [place] [address] * (ABNORMAL) Differential, auto (12/26/2017 5:05 PM CDT) Neutrophil abs 7.5(H) 1.7 - 6.5 K/cumm [facility] Imm gran abs 0.0 0.0 - 0.1 K/cumm [facility] Lymphocyte abs 2.3 0.8 - 3.3 K/cumm [facility] Monocyte abs 0.6 0.2 - 0.8 K/cumm [facility] Eosinophil abs 0.1 0.0 - 0.5 K/cumm [facility] Basophil abs 0.0 0.0 - 0.1 K/cumm [facility] Neutrophil pct 71.5 % [facility] Comment: Interpretive Data Percent cell count reference ranges are not reported, since discordance with absolute values may lead to misinterpretation of CBC data. Current Interpretive Data was last revised on 2017. Imm gran pct 0.5 % [facility] Comment: Interpretive Data Percent cell count reference ranges are not reported, since discordance with absolute values may lead to misinterpretation of CBC data. Current Interpretive Data was last revised on 2017. Lymphocyte pct 21.7 % [facility] Comment: Interpretive Data Percent cell count reference ranges are not reported, since discordance with absolute values may lead to misinterpretation of CBC data. Current Interpretive Data was last revised on 2017. Monocyte pct 5.4 % [facility] Comment: Interpretive Data Percent cell count reference ranges are not reported, since discordance with absolute values may lead to misinterpretation of CBC data. Current Interpretive Data was last revised on 2017. Eosinophil pct 0.6 % [facility] Comment: Interpretive Data Percent cell count reference ranges are not reported, since discordance with absolute values may lead to misinterpretation of CBC data. Current Interpretive Data was last revised on 2017. Basophil pct 0.3 % [facility] Comment: Interpretive Data Percent cell count reference ranges are not reported, since discordance with absolute values may lead to misinterpretation of CBC data. Current Interpretive Data was last revised on 2017. Blood specimen (specimen) 12/26/2017 5:05 PM CDT 12/26/2017 5:11 PM CDT Narrative [facility] - 12/26/2017 5:22 PM CDT Anitha Duggan NP LAB BLOOD ORDERABLES Final Result [facility] [address] Department [place] [address] * Comprehensive metabolic panel (12/26/2017 5:05 PM CDT) Sodium 138 135 - 145 mmol/L [facility] Potassium, pl 4.2 3.5 - 5.1 mmol/L [facility] Chloride 104 100 - 114 mmol/L [facility] CO2 26 22 - 32 mmol/L [facility] Anion gap 12 8 - 16 mmol/L [facility] BUN 10 8 - 24 mg/dL [facility] Creatinine 0.81 0.20 - 1.20 mg/dL [facility] Glucose 93 70 - 199 mg/dL [facility] Comment: Interpretive Data Fasting glucose >/= 126 [...] interpretive data was last revised 2017. Calcium 9.2 8.4 - 10.5 mg/dL [facility] Bilirubin, total 0.30 0.10 - 1.30 mg/dL [facility] Protein, pl 7.2 6.0 - 8.3 g/dL [facility] Albumin 3.3 3.2 - 4.8 g/dL [facility] Alk phos 106 30 - 110 Units/L [facility] ALT 24 1 - 45 Units/L [facility] AST 22 7 - 40 Units/L [facility] Blood specimen (specimen) 12/26/2017 5:05 PM CDT 12/26/2017 5:11 PM CDT Narrative [facility] - 12/26/2017 5:36 PM CDT us Anitha Duggan NP LAB BLOOD ORDERABLES Final Result [facility] [address] Department [place] [address] * (ABNORMAL) CBC with auto differential (12/26/2017 5:05 PM CDT) WBC 10.5(H) 3.8 - 9.9 K/cumm [facility] Hgb 11.7(L) 11.9 - 15.5 g/dL [facility] Hct 38.6 35.6 - 45.5 % [facility] Plt 294 150 - 400 K/cumm [facility] MPV 11.8 9.1 - 12.3 fL [facility] RBC 4.85 3.90 - 5.20 M/cumm [facility] MCV 79.6(L) 81.3 - 96.4 fL [facility] MCH 24.1(L) 27.1 - 33.3 pg [facility] MCHC 30.3(L) 32.3 - 35.7 g/dL [facility] RDW CV 15.2(H) 11.1 - 14.9 % [facility] RDW SD 44.0 35.7 - 48.1 fL [facility] NRBC abs 0.00 0.00 - 0.01 K/cumm [facility] Blood specimen (specimen) 12/26/2017 5:05 PM CDT 12/26/2017 5:11 PM CDT Narrative [facility] - 12/26/2017 5:22 PM CDT us Anitha Duggan NP LAB BLOOD ORDERABLES Final Result [facility] [address] Department [place] [address] documented in this encounter Visit Diagnoses Diagnosis Intractable paroxysmal hemicrania, unspecified chronicity pattern- Primary documented in this encounter Administered Medications Inactive Administered Medications - up to 3 most recent administrations Medication Order MAR Action Action Date Dose Rate Site diphenhydrAMINE (BENADRYL) injection 50 mg 50 mg, intravenous, Administer over 1 Minutes, Once, On Sun12/26/17 at 1509, For 1 dose, Administer at 25 mg/min Given 12/26/2017 5:15 PM CDT 50 mg ketorolac (TORADOL) injection 30 mg 30 mg, intravenous, Once, On Sun12/26/17 at 1509, For 1 dose Given 12/26/2017 5:15 PM CDT 30 mg metoclopramide (REGLAN) injection 10 mg 10 mg, intravenous, Once, On Sun12/26/17 at 1509, For 1 dose Given 12/26/2017 5:15 PM CDT 10 mg sodium chloride 0.9% bolus 1,000 mL 1,000 mL, intravenous, at 1,000 mL/hr, Administer over 1 Hours, Once, On Sun12/26/17 at 1509, For 1 dose New Bag 12/26/2017 5:14 PM CDT 1,000 mL 100 0 mL/hr documented in this encounter Active and Recently Administered Medications Times are shown in CDT. Scheduled Medication Order 12/24/2017 12/25/2017 12/26/2017 diphenhydrAMINE (BENADRYL) injection 50 mg (COMPLETED) 50 mg, intravenous, Administer over 1 Minutes, Once, On Sun12/26/17 at 1509, For 1 dose, Administer at 25 mg/min 171 (Given - Provid er: Slava Houston RN) ketorolac (TORADOL) injection 30 mg (COMPLETED) 30 mg, intravenous, Once, On Sun12/26/17 at 1509, For 1 dose 171 (Given - Provid er: Slava Houston RN) ketorolac (TORADOL) injection 60 mg 60 mg, intravenous, Once, On Sun12/26/17 at 1634, For 1 dose 163 (Due) metoclopramide (REGLAN) injection 10 mg (COMPLETED) 10 mg, intravenous, Once, On Sun12/26/17 at 1509, For 1 dose 1715 (Given - Provid er: Slava Houston RN) sodium chloride 0.9% bolus 1,000 mL (COMPLETED) 1,000 mL, intravenous, at 1,000 mL/hr, Administer over 1 Hours, Once, On Sun12/26/17 at 1509, For 1 dose 171 (New Bag - Prov ider: Slava Houston RN)1923 (Stopped - Provider: Slava Houston RN) documented in this encounter Orders Medications Ordered That Ed ht Not Have Been Administered Count Last Ordered Date First Ordered Date ketorolac (TORADOL) injection 60 mg 1 12/26 documented in this encounter Care Teams Loader Operator Relationship Specialty Start Date End Date No, Physician PCP - General 12/26/17 04/23/20 No, Physician 01/10/17 documented as of this encounter
--- OUTSIDE RECORDS SUMMARY | 2024-06-13 23:59 | XMS_ITS | Encounter Summary ---
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 Exporter Name Role Phone Unavailable Primary Care Provider Unavailabl e Encounter Details Date Type Department Care Team ([facility] Contact Info) Description 09/06/2016 Orders Only [facility] [phone] Jerry Cee MD [address] [place] [address] # [place] [address] Social History Tobacco Use Types Packs/Day Years Used Date Smoking Tobacco: Never Assessed Comments Unknown Sex and Gender Information Value Date Recorded Sex Assigned at Not on file 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 Gender Identity Not on file Sexual Orientation Not on file documented as of this encounter Plan of Treatment Not on file documented as of this encounter Procedures Procedure Name Priority Date/Time Associated Diagnosis Comments COMPREHENSIVE METABOLIC PANEL STAT 09/06/2016 8:54 PM CDT documented in this encounter Results * Comprehensive metabolic panel (09/06/2016 8:54 PM CDT) Sodium 141 135 - 145 mmol/L [facility] Potassium 4.0 3.5 - 5.1 mmol/L [facility] Chloride 101 97 - 110 mmol/L [facility] CO2 25 22 - 32 mmol/L [facility] Anion gap 15 8 - 16 mmol/L [facility] Glucose 158 70 - 199 mg/dL [facility] Comment: Interpretive Data Note:The glucose is assumed non fasting Fastin-99 mg/dL Random: ??70-199 mg/dL Either a fasting glucose > 126 mg/dL or a random glucose > 200 mg/dL plus symptoms is diagnostic of diabetes when confirmed on another day. Fasting values > 100 mg/dL but < 125 mg/dL are diagnostic of impaired fasting glucose. Current interpretive data was last revised on 2014. BUN 14.1 8.0 - 25.0 mg/dL [facility] Creatinine 0.69 0.40 - 1.00 mg/dL [facility] BUN/creat ratio 20 10 - 20 [facility] Calcium 8.9 8.6 - 10.2 mg/dL [facility] Protein, sr 7.0 6.0 - 8.4 g/dL [facility] Albumin 3.7 3.6 - 5.0 g/dL [facility] Alk phos 99 70 - 260 Units/L [facility] ALT 38 5 - 45 Units/L [facility] AST 23 10 - 40 Units/L [facility] Bilirubin, total <0.2 <=1.2 mg/dL [facility] Blood specimen (specimen) 09/06/2016 8:54 PM CDT 09/06/2016 8:57 PM CDT us Jerry Cee MD LAB BLOOD ORDERABLES Final Re sult [facility] [address] [facility] Department [place] [address] documented in this encounter Visit Diagnoses Not on filedocumented in this encounter
--- OUTSIDE RECORDS SUMMARY | 2024-06-13 23:59 | XMS_ITS | Encounter Summary ---
Author Organization [facility] Healthcare Address [address] [place] [address] Care Team Providers Care Digital Product Manager Name Role Phone No, Physician Primary Care Provider [phone] Encounter Details Date Type Department Care Team (Latest Contact Info) Description 12/17/2016 10:23 AM CDT - 12/19/2016 1:06 AM CDT Hospital Encounter [facility] [address] [place] [address] Kaia Eason MD [address] [place] [address] Discharge Disposition: Discharge to home or self care Social History Tobacco Use Types Packs/Day Years Used Date Smoking Tobacco: Never Assessed Comments Unknown Sex and Gender Information Value Date Recorded Sex Assigned at Not on file Legal Sex Female 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 9 oz) 12/17/2016 10:29 AM CDT Height 160 cm (5' 3 ) 12/17/2016 10:29 AM CDT Body Mass Index 42.51 12/17/2016 10:29 AM CDT Body Mass Index Percentile 99.40% 12/17 10:29 AM CDT Growth Chart: CDC (Girls, 2- 20 Years) documented in this encounter Discharge Disposition Disposition Code Departure Means Destination Discharge to home or self care documented in this encounter Miscellaneous Notes * Op Note - Provider, MD Tracey - 12/18/2016 12:00 AM CDT Patient: BAILEE ROSS Reg No: [id number] U H #: [id number] Admit Dt.: 12/17/2016 : 2000 Pt Type: IP Room No: 57119-98 Attending: Kaia Eason M.D. Surgeon: Kaia Eason M.D. Dictating: Anitha Rudolph M.D. Service Dt: 12/18/2016 OPERATIVE REPORT FACILITY ID: [facility] SURGEON Kaia Eason MD FIRST ELECTRONIC COILS SUPERVISOR Anitha Rudolph MD SECOND PETROGRAPHER Minal Fishman M.D. NAME OF OPERATION 1. Exam under anesthesia. 2. Laparoscopic right ovarian cystectomy. 3. Right salpingectomy. 4. Drainage of ovarian cyst. INDICATIONS FOR PROCEDURE This is an 16-year-old G0 who presents as an outside hospital transfer secondary to abdominal pain and a 25 cm simple-appearing ovarian cyst found on CT. Patient reported that she had pain for the last month or so that acutely worsened and thus prompted her presentation. Given the size of the cyst, a decision was made to proceed to the OR for ovarian cystectomy. CA- 125 was 14, and this appeared entirely simple and benign on both ultrasound and CT. OPERATIVE FINDINGS EUA revealed a pelvic mass extending to the xiphoid. On laparoscopy, simple- appearing right ovarian cyst filling the entire pelvis and abdomen. Normal bilateral tubes. Normal left ovary. Normal uterus. DESCRIPTION OF PROCEDURE After obtaining the appropriate operative consents, the patient was taken to the operating room, where general anesthesia was induced and confirmed to be adequate. The patient was prepared and draped in the normal sterile fashion in the dorsal lithotomy position. A Coy catheter was placed. A sterile speculum was placed, and the anterior lip of the cervix was grasped with single-tooth tenaculum. A Hulka was placed, and the tenaculum was removed. Attention was then turned to the patient's abdomen, where left upper quadrant entry was attempted. 5 mL of 0.25% Marcaine was injected into the midclavicular line just below the costal margin, and a 5 mm stab incision was made with a scalpel. Towel clips were placed on the patient's abdomen, and the skin was tented up. An attempt was made to gain entry into the abdomen at this site but was unsuccessful. Therefore, a bariatric trocar was used in order to gain entry. Despite attempts, the peritoneum was never entered at this site, likely secondary to peritoneal distention and proximity of the ovarian cyst. At this point, the decision was made to drain the cyst at the umbilicus. Therefore, a Veress needle was placed into the base of the umbilicus and inserted into the cyst. The Veress was hooked up to suction, and approximately 2500 mL of clear fluid was aspirated from the cyst. Some of this fluid was sent for cytology. Once the cyst was partially decompressed, direct optical trocar insertion was performed at the base of the umbilicus. Again, this was attempted with a regular trocar but was not successful. Therefore, towel clamps were placed at this site, and a bariatric trocar was inserted under direct visualization after insufflating with Veress needle. At this point 2 additional ports were placed, one on the right, one on the left lower quadrant, after infiltrating with 0.25% Marcaine, and 5 mm stab incisions were made with a scalpel. Both trocars were placed under direct visualization. At this point, hot monopolar scissors were used to further open up the cyst wall, and more fluid was aspirated. At this point, the LigaSure was used to remove the cyst, leaving a normal-appearing ovary on the right. The fallopian tube had been distorted significantly by the cyst wall, and therefore a salpingectomy was performed on the right. A 5 mm bag was then placed into the patient's abdomen, and the cyst wall was placed in the bag and removed from the abdomen. The pedicle was hemostatic. At this point, the instruments were removed from the patient's abdomen and the gas was allowed to escape. The trocars were then removed. The port sites were closed using 4-0 Monocryl in a subcuticular fashion and Exofin. The Hulka was removed from the patient's vagina. COMPLICATIONS None. ESTIMATED BLOOD LOSS Minimal. 3760 mL of simple cyst fluid was removed. INTRAOPERATIVE FLUIDS GIVEN 1600 mL. SPECIMENS REMOVED AND SENT TO PATHOLOGY Cyst wall and cyst fluid. The attending, Dr. Kaia Eason, was present and scrubbed for the entire case. Electronically Authenticated by: Kaia Eason M.D. On 12/21/2016 02:48 PM CDT Anitha Rudolph M.D. Kaia Eason M.D. SEC:[facility] #[id number] Editing MT: TD: 12/19/2016 12:23 PM cc: Kenroy Friedman M.D. documented in this encounter Plan of Treatment Not on file documented as of this encounter Procedures Procedure Name Priority Date/Time Associated Diagnosis Comments DISCHARGE LABORATORY CUMULATIVE REPORT 12/19/2016 12:00 AM CDT SURGICAL PATHOLOGY Routine 12/18/2016 5: 55 PM CDT CYTOLOGY Routine 12/18/2016 4:20 PM CDT CYTOLOGY 12/18/2016 12:00 AM CDT SURGICAL PATHOLOGY 12/18/2016 12 :00 AM CDT OUTSIDE ED BODY CT MR CONSULT Routine 12/17/2016 10:28 AM CDT HCG, QUAL, URINE, POC Routine Gen Lab 12/17/2016 5:17 AM CDT DIFFERENTIAL AUTO STAT 12/17/2016 5:1 2 AM CDT URINALYSIS AND REFLEX TO MICROSCOPIC STAT 12/17/2016 5:12 AM CDT CBC WITH AUTO DIFFERENTIAL STAT 12/17/2016 5:12 AM CDT URINALYSIS, MICROSCOPIC ONLY STAT 12/17/2016 5:12 AM CDT APTT STAT 12/17/2016 5:12 AM CDT PROTIME-INR STAT 12/17/2016 5:12 AM CDT TYPE AND SCREEN STAT 12/17/2016 5:12 AM CDT CA 125 STAT 12/17/2016 5:12 AM CDT BASIC METABOLIC PANEL STAT 12/17/2016 5:12 AM CDT documented in this encounter Results * DISCHARGE LABORATORY CUMULATIVE REPORT (12/19/2016 12:00 AM CDT) Narrative 12/19/2016 12:00 AM CDT Ordered by an unspecified provider. us Historical Provider LAB BLOOD ORDERABLES Farida l Result * Surgical pathology (12/18/2016 5:55 PM CDT) 12/18/2016 5:55 PM CDT 12/19/2016 7:48 AM CDT Narrative 12/22/2016 5:15 PM CDT [facility] [place] [address] SURGICAL PATHOLOGY REPORT FINAL Patient Name: BAILEE ROSS ? Address: [address] ??Service: ??Gynecology ??[place], [place] ??[address] ??Location: ??[facility] 0173 Taken: 12/18/2016 Gender: F ?? Received: 12/19/2016 : 2000 (Age: 16) ??Hospital #: [id number] Accessioned: 12/19/2016 ?Patient Type: ??[facility] Inpatient Reported: 12/22/2016 ? Physician(s): Kaia Eason M.D. ? Diagnosis: A. Ovarian cyst wall , laparoscopic right ovarian cystectomy and partial salpingectomy ? - Serous cystadenoma with focal epithelial proliferation ? - Segment of fallopian tube with no significant histopathologic abnormalities [facility]/12/22/2016 14:39 By this signature, I attest that the above diagnosis is based upon my personal examination of the slides(and/or other material indicated in the diagnosis). ?? Carolann Crespo M.D. ??Report Electronically Reviewed and Signed Out By ??Carolann Crespo M.D. 12/22/2016 17:15:05 Microscopic Description and Comment: Microscopic examination substantiates the above cited diagnosis. ?Alisa Carpio MD ?History: The patient is an 16 year old, G0, female with a 25 cm right ovarian cyst which appeared benign on both ultrasound and CT. Operative procedure: Laparoscopic right ovarian cystectomy and partial salpingectomy. Specimen(s) Received: A: Cyst wall Gross Description: Specimen is received in a formalin filled container labeled with the patient's name and cyst wall . Specimen consists of a 124.5 gram collapsed cyst wall measuring [id number] in aggregate. The collapsed cyst consists of two separate membranous bartlett-white tissue fragments, both with smooth lining with a thickness of up to 0.2 cm. ??A portion of fallopian tube is identified measuring 2x0.5 cm. ??Serosal surface is smooth and glistening with no papillary excrescences, lesions, or areas of necrosis. ??Labeled A1 to A3- technology sales representative sections of cyst wall; A4- fallopian tube. ??Jar 2. [facility]/12/20/2016 15:01 ?Alisa Carpio MD ? By this signature, I attest that the above diagnosis is based upon my personal examination of the slides(and/or other material). ?? Surgical Pathology report is available electronically in Clinical Desktop. The performance characteristics of some immunohistochemical stains, fluorescence in-situ hybridization tests and immunophenotyping by flow cytometry cited in this report (if any) were determined by the Surgical Pathology Department at [facility] as part of an ongoing director quality assurance program and in compliance with federally mandated [...] a high complexity laboratory under CLIA '88. ??The FDA has determined that such clearance or approval is not necessary. ??This test is used for clinical purposes. ??It should not be regarded as investigational or for research. ??Nevertheless, federal rules concerning the medical use of analyte specific reagents require that the following disclaimer be attached to the report: This test was developed and its performance characteristics determined by the Surgical Pathology Department of [facility]. ??It has not been cleared or approved by the U. S. Food and Drug Administration. Kaia Eason MD LAB PATHOLOGY ORDERABLES Final Result * Cytology (12/18/2016 4:20 PM CDT) 12/18/2016 4:20 PM CDT 12/19/2016 7:14 AM CDT Narrative 12/20/2016 7:03 PM CDT [facility] [place] [address] CYTOPATHOLOGY REPORT FINAL Patient Name: BAILEE ROSSSandi Address: [address] Service: Gynecology ??[place], [place] ??[address] Location: [place] [address] Taken: 12/18/2016 Gender: ??F Received: 12/19/2016 : 2000 (Age: 16) Hospital #: [id number] Accessioned: 12/19/2016 ?? Patient Type: [facility] Inpatient Reported: 12/20/2016 Physician(s): ??Kaia Eason M.D. ? FINAL DIAGNOSIS A. ??Ovary, side not stated, cyst fluid: ? - Negative for malignancy ?? Comments Microscopic examination substantiates the above cited diagnosis. iag/12/20/2016 10:04 By this signature, I attest that the above diagnosis is based upon my personal examination of the slides(and/or other material indicated in the diagnosis). ?? Gamal Douglass M.D. [facility] [place](ASCP) Report Electronically Reviewed and Signed Out By ??Gamal Douglass M.D. 12/20/2016 19:03:50 Gross Description A. ??Ovarian cyst fluid: ??40 ml of cloudy fluid - 1 Pap stained ThinPrep. (pc) ?? Clinical Diagnosis and History The patient is an 16-year-old woman with an ovarian cyst. ?By this signature, I attest that the above diagnosis is based upon my personal examination of the slides(and/or other material). ? This Cytology report is available electronically in Clinical Desktop. The performance characteristics of some immunohistochemical stains, in-situ hybridization and fluorescence in-situ hybridization tests and immunophenotyping by flow cytometry cited in this report (if any) were determined by the Surgical Pathology Department at [facility] as part of an ongoing director quality assurance program and in compliance with federally mandated [...] a high complexity laboratory under CLIA '88. ??The FDA has determined that such clearance or approval is not necessary. ??This test is used for clinical purposes. ??It should not be regarded as investigational or for research. ??Nevertheless, federal rules concerning the medical use of analyte specific reagents require that the following disclaimer be attached to the report: ? This test was developed and its performance characteristics determined by the Surgical Pathology Department of [facility]. ??It has not been cleared or approved by the U. S. Food and Drug Administration. Kaia Eason MD LAB CYTOLOGY ORDERABLES F inal Result * CYTOLOGY (12/18/2016 12:00 AM CDT) Narrative 12/18/2016 12:00 AM CDT Ordered by an unspecified provider. Historical Provider LAB CYTOLOGY ORDERABLES F inal Result * SURGICAL PATHOLOGY (12/18/2016 12:00 AM CDT) Narrative 12/18/2016 12:00 AM CDT Ordered by an unspecified provider. Historical Provider MD LAB PATHOLOGY ORDERABLES Final Result * OUTSIDE ED BODY CT MR CONSULT (12/17/2016 10:28 AM CDT) Anatomical Region Laterality Modality N/A Computed Tomogra phy 12/17/2016 10:2 8 AM CDT Narrative 12/17/2016 10:28 AM CDT CHIP ESTRADA M.D. FINAL REPORT ACC# ??Date Time ??Exam [id number] Dec 17, 2016 05:28:00 69427M ED Consult Body CT/MR EXAMINATION: ?? RADIOLOGY CONSULTATION ON OUTSIDE IMAGING STUDY STUDY INITIALLY PERFORMED: [facility] 12/17/2016 at 12:44 a.m. TYPE OF STUDY: Multiple CT images of the abdomen and pelvis were performed after the ministration of intravenous contrast. Images are adequate to address the clinical question TYPE OF CONSULTATION: ??Consult on outside imaging study with images submitted through [facility] DATE OF CONSULTATION: 12/17/2016 HISTORY: ??Evaluate mass COMPARISON: None FINDINGS: The lung bases are clear. There is no pleural effusion or pneumothorax. No pulmonary nodules are seen. The spleen, liver, adrenal glands and pancreas are normal the kidneys are symmetric without hydronephrosis. The colon and small bowel are also normal. There is no retroperitoneal or mesenteric lymphadenopathy. A large right homogeneous low attenuating mass is seen that measures 11.3 x 24.4 cm. 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 Note is made of a tampon within the vagina. The left ovary is normal. There is no omental nodularity. Urinary bladder is decompressed The bone windows do not demonstrate any osseous lesions. IMPRESSION: ?? 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 No evidence for metastatic disease. The findings, conclusions and recommendations within this report do not replace the initial findings, conclusions ??and recommendations made at the facility where the study was performed based upon the imaging and clinical condition at that time. ??Comparison with the prior report and clinical history is necessary. ??The provided images may or may not represent the tejon source data set and thus may contain changes that may lower the accuracy of this second-opinion interpretation. Requested By: GIL HERNÁNDEZ M.D. Dictated By: ?? CHIP ESTRADA M.D. ??on Dec 17 2016 ??8:15A This document has been electronically signed by: CHIP ESTRADA M.D. on Dec 17 2016 ??8:15A [id number] Procedure Note Miscellaneous, Not In File / Provider, MD Tracey - 01/12/2017 CHIP ESTRADA M.D. FINAL REPORT ACC# Date Time Exam [id number] Dec 17, 2016 05:28:00 [id number] ED Consult Body CT/MR EXAMINATION: RADIOLOGY CONSULTATION ON OUTSIDE IMAGING STUDY STUDY INITIALLY PERFORMED: [facility] 12/17/2016 at 12:44 a.m. TYPE OF STUDY: Multiple CT images of the abdomen and pelvis were performed after the ministration of intravenous contrast. Images are adequate to address the clinical question TYPE OF CONSULTATION: Consult on outside imaging study with images submitted through [facility] DATE OF CONSULTATION: 12/17/2016 HISTORY: Evaluate mass COMPARISON: None FINDINGS: The lung bases are clear. There is no pleural effusion or pneumothorax. No pulmonary nodules are seen. The spleen, liver, adrenal glands and pancreas are normal the kidneys are symmetric without hydronephrosis. The colon and small bowel are also normal. There is no retroperitoneal or mesenteric lymphadenopathy. A large right homogeneous low attenuating mass is seen that measures 11.3 x 24.4 cm. 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 Note is made of a tampon within the vagina. The left ovary is normal. There is no omental nodularity. Urinary bladder isdecompressed The bone windows do not demonstrate any osseous lesions. 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 No evidence for metastatic disease. The findings, conclusions and recommendations within this report do not replace the initial findings, conclusions and recommendations made at the facility where the study was performed based upon the imaging and clinical condition at that time. Comparison with the prior report and clinical history is necessary. The provided images may or may not represent the tejon source data set and thus may contain changes that may lower the accuracy of this second-opinion interpretation. Requested By: GIL HERNÁNDEZ M.D. Dictated By: CHIP ESTRADA M.D. on Dec 17 2016 8:15A This document has been electronically signed by: CHIP ESTRADA M.D. on Dec 17 2016 8:15A [id number] us Not In File Miscellaneous IMG CT PROCEDURES Farida l Result * hCG, Qual, Urine, POC (12/17/2016 5:17 AM CDT) HCG, ur, POC Negative [facility] Urine 12/17/2016 5:17 AM CDT 12/18/2016 8:37 AM CDT us Kaia Eason MD LAB BLOOD ORDERABLES Farida l Result [facility] [place] [address] * CA 125 (12/17/2016 5:12 AM CDT) [facility] CA 125 ag 14.2 0.0 - 35.0 units/mL [facility] Blood specimen (specimen) 12/17/2016 5:12 AM CDT 12/17/2016 5:59 AM CDT Gil Hernández MD LAB BLOOD ORDERABLES Fin al Result [facility] [place] [place] [address] * Type and screen (12/17/2016 5:12 AM CDT) [facility] ABO Rh A Positive [facility] Steve, indirect Negative [facility] Blood specimen (specimen) 12/17/2016 5:12 AM CDT 12/17/2016 6:15 AM CDT Gil Hernández MD LAB BLOOD BANK TEST ORDE RABLES Edited Result - Final [facility] Department [place] [address] * Basic metabolic panel (12/17/2016 5:12 AM CDT) [facility] Sodium 139 135 - 145 mmol/L [facility] Potassium, pl 4.0 3.3 - 4.9 mmol/L [facility] Chloride 103 97 - 110 mmol/L [facility] CO2 24 22 - 32 mmol/L [facility] BUN 13 8 - 25 mg/dL [facility] Glucose 90 70 - 199 mg/dL [facility] Creatinine 0.76 0.40 - 1.00 mg/dL [facility] Calcium 8.8 8.5 - 10.3 mg/dL [facility] Anion gap 12 2 - 15 mmol/L [facility] Blood specimen (specimen) 12/17/2016 5:12 AM CDT 12/17/2016 5:59 AM CDT Gil Hernández MD LAB BLOOD ORDERABLES Fin al Result Performing Organization Address [facility] de Phone Number [facility] [place] [address] * aPTT (12/17/2016 5:12 AM CDT) aPTT 30.8 25.0 - 37.0 sec [facility] Comment: Interpretive Data Therapeutic heparin range:60.0 - 94.0 sec based on correlation with therapeutic heparin activity range of 0.3 -0.7 Units/mL. Current interpretive data was last revised on 2011. Blood specimen (specimen) 12/17/2016 5:12 AM CDT 12/17/2016 5:54 AM CDT Result [facility] Gil Hernández MD LAB BLOOD ORDERABLES Fin al Result Performing Organization Address [facility] [place] [address] * Protime-INR (12/17/2016 5:12 AM CDT) PT 12.4 9.2 - 14.0 sec [facility] INR 1.09 0.81 - 1.22 [facility] Comment: Interpretive Data Inpatient therapeutic ranges* Atrial fibrillation ?2.0-3.0 INR Venous thrombo-embolism ?2.0-3.0 INR Bioprosthetic heart valve ?* Mechanical heart valve, bileaflet or tilting disk,aortic position ? 2.0-3.0 INR All other,or bileaflet or tilting disk, in mitral position ? 2.5-3.5 INR *See the pharmacy resource directory (PHRED) for an updated copy of the Tool Book at [email or web address] Current Interpretive Data was last revised 2011. Blood specimen (specimen) 12/17/2016 5:12 AM CDT 12/17/2016 5:54 AM CDT us Gil Hernández MD LAB BLOOD ORDERABLES Fin al Result [facility] Department [place] [address] * Differential, auto (12/17/2016 5:12 AM CDT) Neutrophil pct 65.1 % [facility] Imm gran pct 0.3 % [facility] Lymphocyte pct 28.0 % [facility] Monocyte pct 5.8 % [facility] Eosinophil pct 0.5 % [facility] Basophil pct 0.3 % [facility] Neutrophil abs 6.19 1.70 - 6.50 K/cumm [facility] Imm gran abs 0.03 0.00 - 0.10 K/cumm [facility] Lymphocyte abs 2.67 0.80 - 3.30 K/cumm [facility] Monocyte abs 0.55 0.20 - 0.80 K/cumm [facility] Eosinophil abs 0.05 0.00 - 0.50 K/cumm [facility] Basophil abs 0.03 0.00 - 0.10 K/cumm [facility] Blood specimen (specimen) 12/17/2016 5:12 AM CDT 12/17/2016 5:58 AM CDT us Gil Hernández MD LAB BLOOD ORDERABLES Fin al Result [facility] Department [place] [address] * (ABNORMAL) CBC with auto differential (12/17/2016 5:12 AM CDT) WBC 9.52 3.80 - 9.90 K/cumm [facility] RBC 4.41 3.90 - 5.20 M/cumm [facility] Hgb 11.2(L) 11.9 - 15.5 g/dL [facility] Hct 35.3(L) 35.6 - 45.5 % [facility] MCV 80.0(L) 81.3 - 96.4 fL [facility] MCH 25.4(L) 27.1 - 33.3 pg [facility] MCHC 31.7(L) 32.3 - 35.7 g/dL [facility] RDW CV 14.5 11.1 - 14.9 % [facility] RDW SD 42.0 35.7 - 48.1 fL [facility] Plt 256 150 - 400 K/cumm [facility] MPV 12.5(H) 9.1 - 12.3 fL [facility] NRBC 0.0 0.0 - 0.2 % [facility] NRBC abs 0.00 0.00 - 0.01 K/cumm [facility] Blood specimen (specimen) 12/17/2016 5:12 AM CDT 12/17/2016 5:58 AM CDT Gil Henrández MD LAB BLOOD ORDERABLES Fin al Result [facility] Department [place] [address] * (ABNORMAL) Urinalysis, microscopic only (12/17/2016 5:12 AM CDT) Pathologist [facility] RBC, ur 5(H) 0 - 3 /HPF [facility] WBC, ur 0 0 - 5 /HPF [facility] Bacteria, ur Negative Trace [facility] Epithelial cells, renal, ur 0 0 - 0 /HPF [facility] Urine 12/17/2016 5:12 AM CDT 12/17/2016 5:54 AM CDT us Gil Hernández MD LAB URINE ORDERABLES Fin al Result Performing Organization Address [facility] de Phone Number [facility] Department [place] [address] * (ABNORMAL) Urinalysis reflex to microscopic (12/17/2016 5:12 AM CDT) Color, ur Yellow Yellow [facility] Clarity, ur Clear Clear [facility] Specific gravity, ur >1.042(H) 1.003 - 1.030 [facility] pH, ur 5.0 5.0 - 8.0 [facility] Albumin, ur Negative Trace [facility] Glucose, ur ql Negative Negative [facility] Ketones, ur Negative Negative [facility] Bilirubin, ur Negative Negative [facility] Blood, ur 2+(A) Negative [facility] Urobilinogen, ur <2.0 <2.0 mg/dL [facility] Nitrites, ur Negative Negative [facility] Leukocyte esterase, ur Negative Negative [facility] Urine 12/17/2016 5:12 AM CDT 12/17/2016 5:54 AM CDT us Gil Hernández MD LAB URINE ORDERABLES Fin al Result Performing Organization Address City/[facility] Co de Phone Number [facility] [place] [address] documented in this encounter Visit Diagnoses Not on filedocumented in this encounter Care Teams Digital Product Manager Relationship Specialty Start Date End Date No, Physician PCP - General 12/17/16 01/09/17 documented as of this encounter
--- OUTSIDE RECORDS SUMMARY | 2024-06-13 23:59 | XMS_ITS | Encounter Summary ---
Author Organization 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 Gender Identity Not on file Sexual Orientation Not on file documented as of this encounter Plan of Treatment Not on file documented as of this encounter Procedures Procedure Name Priority Date/Time Associated Diagnosis Comments D-DIMER, QUANTITATIVE STAT 09/06/2016 8:54 PM CDT documented in this encounter Results * (ABNORMAL) D-dimer, quantitative (09/06/2016 8:54 PM CDT) D-dimer <150(L) 150 - 230 ng/mL D-DU [facility] ([place]) Comment: Interpretive Data This D-dimer test is approved by the FDA to exclude suspected PE and DVT in outpatients when the result is <230 ng/mL in conjunction with a pre-test probability score of low or moderate using the Wells criteria. Current Interpretive Data was last revised on 2015. Blood specimen (specimen) 09/06/2016 8:54 PM CDT 09/06/2016 8:57 PM CDT us Jerry Cee MD LAB BLOOD ORDERABLES Final Re sult [facility] [address] [facility] Department [place] [address] documented in this encounter Visit Diagnoses Not on filedocumented in this encounter
--- OUTSIDE RECORDS SUMMARY | 2024-06-13 23:59 | XMS_ITS | Encounter Summary ---
Author Organization [facility] Healthcare Address [address] [place] [address] Care Team Providers Care Crystal Cutter Name Role Phone Unavailable Primary Care Provider Unavailabl e Encounter Details Date Type Department Care Team ([facility] Contact Info) Description 09/06/2016 Orders Only [facility] Interim [phone] Jerry Cee MD [address] [facility] [place] [address] Social History Tobacco Use Types Packs/Day Years Used Date Smoking Tobacco: Never Assessed Comments Unknown Sex and Gender Information Value Date Recorded Sex Assigned at Not on file 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 Negative ? 0.00-0.06 ng/ml ? Indeterminate ?0.07-0.10 ng/ml ? Consistent with Myocardial Injury ?Greater than 0.10 ng/ml ?? Current interpretive data was last revised on 2014 Blood specimen (specimen) 09/06/2016 8:54 PM CDT 09/06/2016 8:57 PM CDT us Jerry Cee MD LAB BLOOD ORDERABLES Final Re sult [facility] [address] [facility] Department [place] [address] documented in this encounter Visit Diagnoses Not on filedocumented in this encounter
--- OUTSIDE RECORDS SUMMARY | 2024-06-13 23:59 | XMS_ITS | Encounter Summary ---
Author Organization [facility] Healthcare Address [address] [place] [address] Care Team Providers Care Dispatcher Tugboat Name Role Phone No, Physician Unavailable Maryellen Hand MD Primary Care Provider Reason for Visit * Reason Comments Abdominal Pain Nausea Encounter Details Date Type Department Care Team ([facility] st Contact Info) Description 09/29/2017 1:05 AM CDT - 09/29/2017 4:59 AM CDT Emergency [facility] Emergency Department [address] [place] [address] Bruno Campos Jr., MD [address] [place] [id number] Generalized abdominal pain (Primary Dx); Viral syndrome Discharge Disposition: Discharge to home or self care Social History Tobacco Use Types Packs/Day Years Used Date Smoking Tobacco: Never Smokeless Tobacco: Never Comments No Sex and Gender Information Value Date Recorded Sex Assigned at Not on file 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 Gender Identity Not on file Sexual Orientation Not on file documented as of this encounter Last Filed Vital Signs Vital Sign Reading Time Taken Comments Blood Pressure 140/69 09/29/2017 4:11 AM CDT Pulse 88 09/29/2017 4:11 AM CDT Temperature 36.7 ??C (98.1 ??F) 09/29/2017 4:11 AM CD T Respiratory Rate 18 09/29/2017 4:11 AM CDT Oxygen Saturation 98% 09/29/2017 4:11 AM CDT Inhaled Oxygen Concentration - - Weight 120.2 kg (265 lb) 09/29/2017 12:56 AM CDT Height 160 cm (5' 3 ) 09/29/2017 12:56 AM CDT Body Mass Index 46.94 09/29/2017 12:56 AM CDT documented in this encounter Discharge Instructions * Attachments The following attachments cannot be sent through Care Everywhere. * Abdominal Pain, Unknown Cause, (Female) (Tunisian) documented in this encounter Medications at Time of Discharge cyclobenzaprine (FLEXERIL) 10 mg tabletIndications:Mu scle Spasm Take 1 tablet (10 mg total) by mouth 2 (two) times a day as needed for muscle spasms. 20 tablet 07/09/2017 8 dicyclomine (BENTYL) 20 mg tablet Take 1 tablet (20 mg total) by mouth 2 (two) times a day. 20 tablet 09/29/2017 8 lidocaine-menthol 4-1 % adhesive patch,medicatedIndic ations:Minor Skin Wound Pain Apply 1 patch topically 2 (two) times a day as needed (pain). 6 patch 07/09/2017 8 naproxen (NAPROSYN,ALEVE) 500 mg tabletIndications:Pa in Take 1 tablet (500 mg total) by mouth 2 (two) times a day as needed for pain. Take with food. 30 tablet 07/09/2017 8 ondansetron ODT (ZOFRAN-ODT) 8 mg disintegrating tablet Dissolve 1 tablet oral every 4 hours as needed for nausea or vomiting. 12 tablet 09/29/2017 8 documented as of this encounter Ordered Prescriptions Prescription Sig Dispense Quantity Refills Last Filled Start Date End Date ondansetron ODT (ZOFRAN-ODT) 8 mg disintegrating tablet Dissolve 1 tablet oral every 4 hours as needed for nausea or vomiting. 12 tablet 09/29/2017 8 dicyclomine (BENTYL) 20 mg tablet Take 1 tablet (20 mg total) by mouth 2 (two) times a day. 20 tablet 09/29/2017 8 documented in this encounter Discharge Disposition Disposition Code Departure Means Destination Discharge to home or self care documented in this encounter ED Notes * Bruno Campos MD - 09/29/2017 1:59 AM CDT HPI Chief Complaint Patient presents with ??? Abdominal Pain ??? Nausea 1:34 AM 09/29/2017 A 17 y/o F nonsmoker presents to the ED for sudden onset of LLQ pain that radiates to her lower left side and periumbilical area starting a couple hours ago. Pt states It feels like someone is kicking me. No alleviating or exacerbating factors noted. She also confirms nausea, vomiting, and diarrhea for the last 3 days. She denies fever, chills, or dysuria. Pt denies any previous similar presentations. No further complaints at this time. 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 Biliary dyskinesia 05/17/2017 ??? BMI 45.0-49.9, adult (CMS/[facility]) 05/17/2017 ??? Epigastric pain 05/17/2017 Past Medical [...] pain and palpitations. Gastrointestinal: Positive for abdominal pain (LUQ with radiation to LLQ and periumbilical area ), diarrhea, nausea and vomiting. Negative for constipation. Genitourinary: Negative for dysuria and frequency. Musculoskeletal: Negative for arthralgias, back pain, myalgias and neck pain. Skin: Negative for color change, pallor, rash and wound. Neurological: Negative for dizziness, syncope, weakness, light-headedness and headaches. All other systems reviewed and are negative. Physical Exam ED Triage Vitals [09/29/17 0056] Temp Pulse Resp BP SpO2 37.6 ??C (99.6 ??F) 117 20 (!) 169/101 97 % Temp src Heart Rate Source Patient Position BP Location FiO2 (%) Temporal -- -- -- -- Physical Exam Constitutional: She is oriented to person, place, and time. She appears well- developed and well-nourished. No distress. HENT: Head: Normocephalic and atraumatic. Mouth/Throat: Oropharynx is clear and moist. Eyes: Conjunctivae and EOM are normal. Right eye exhibits no discharge. Left eye exhibits no discharge. Neck: Normal range of motion. Neck supple. Cardiovascular: Normal rate, regular rhythm, normal heart sounds and intact distal pulses. Exam reveals no gallop and no friction rub. No murmur heard. Pulmonary/Chest: Effort normal and breath sounds normal. No respiratory distress. She has no wheezes. She has no rales. Abdominal: Soft. She exhibits no distension. There is tenderness (mild and LUQ and LLQ ). There is no rebound and no guarding. Musculoskeletal: Normal range of motion. She exhibits [...] Course & MDM ED Course as of Sep 29 441 Sat Sep 29, 2017 0440 Discussed all ED findings as well as plan for discharge. Pt verbalizes understanding and is agreeable. All questions and concerns addressed. Return precautions discussed [BS] 1843 The patient has been informed that they may have pre-hypertension or Hypertension based on a blood pressure reading in the Emergency Department. I recommend that the patient call the primary care provider listed on their discharge instructions or a physician of their choice this week to arrange follow up for further evaluation of possible Hypertension. [BS] ED Course User Index [BS] Jessica Briones [facility] Number of Diagnoses or Management Options Amount and/or Complexity of Data Reviewed Clinical lab tests: reviewed Tests in the radiology section of CPT??: reviewed and ordered Tests in the medicine section of CPT??: reviewed and ordered Risk of Complications, Morbidity, and/or Mortality Presenting problems: high Diagnostic procedures: high Management options: high Labs Reviewed URINALYSIS AND REFLEX TO MICROSCOPIC AND CULTURE - Abnormal Result Value Color, ur Yellow Clarity, ur Clear Specific gravity, ur 1.006 (*) pH, urine 6.0 Protein, ur Negative Glucose, ur Negative ur ketones Negative Bilirubin, ur Negative ur blood 1+ (*) ur urobilinogen 0.2 ur nitrite Negative Leukocyte esterase, ur Negative Narrative: Urine pH is affected by diet, medications, systemic acid-base disturbances, and renal tubular function. pH may affect urinary stone formation. For example, urine pH below 6.0 may help reduce the tendency for calcium phosphate stones and pH greater than 6.0 may reduce the tendency for uric acid stone formation. Source: [place] [employer].Last revised 06-14-2017 CBC WITH AUTO DIFFERENTIAL - Abnormal WBC 11.5 (*) RBC 4.72 Hgb 11.4 (*) Hct 36.2 MCV 76.7 (*) MCH 24.2 (*) MCHC 31.5 (*) RDW CV 16.1 (*) RDW SD 44.4 Platelets 324 MPV 10.9 NRBC Abs 0.00 Narrative: DIFFERENTIAL AUTO - Abnormal Neutrophil absolute 7.1 (*) Immature granulocyte absolute 0.0 Lymphocytes absolute 3.4 (*) Monocyte absolute 0.8 Eosinophils absolute 0.1 Basophils, abs 0.1 Neutrophils 62.0 Immature granulocytes 0.4 Lymphocytes 29.5 Monocytes 6.5 Eosinophils 1.1 Basophils 0.5 Narrative: COMPREHENSIVE METABOLIC PANEL Sodium 138 Potassium 3.6 CO2 25 BUN 11 Glucose 111 Creatinine 0.73 Calcium 9.2 Chloride 99 Albumin 3.7 AST 20 ALT 26 Alk phos 119 Bilirubin <0.2 Protein, pl 7.6 Anion Gap 14 Narrative: HCG, BLOOD, QUANTITATIVE hCG, quant <5 Narrative: LIPASE Lipase 32 Narrative: URINALYSIS, MICROSCOPIC ONLY WBC, ur 0-5 RBC, ur 0-5 Epithelial cells, squamous, ur 1-5 Bacteria, ur Negative Hyaline casts 1-5 Narrative: EGFR GFR >60 Narrative: CT Abdomen Pelvis W Contrast (Results Pending) BP 140/69 Pulse 88 Temp 36.7 ??C (98.1 ??F) (Oral) Resp 18 Ht 160 cm (5' 3 ) Wt 120.2 kg (265 lb) LMP 09/29/2017 (Exact Date) SpO2 98% ? No BMI 46.94 kg/m?? Procedures Generalized abdominal pain Viral syndrome IJessica am scribing for and in the presence of Dr. Bruno Campos. Electronically signed by juan Bahena. (DATE, TIME) 2:01 AM 09/29/2017 I, Bruno Campos Jr., MD , have personally performed the services described in the documentation , reviewed the documentation, as recorded by the scribe in my presence, and it accurately and completely records my words and actions. Bruno Campos MD 09/29/17 044 * Ada Mccormack, EBEN - 09/29/2017 12:58 AM CDT abd pain on the left side for the last 24 hours causing nausea. documented in this encounter Plan of Treatment Not on file documented as of this encounter Procedures Procedure Name Priority Date/Time Associated Diagnosis Comments CT ABDOMEN PELVIS W CONTRAST ED 09/29/2017 3:43 AM CDT URINALYSIS AND REFLEX TO MICROSCOPIC AND CULTURE STAT 09/29/2017 1:31 AM CDT URINALYSIS, MICROSCOPIC ONLY STAT 09/29/2017 1:31 AM CDT EGFR STAT 09/29/2017 1:13 AM CDT DIFFERENTIAL AUTO STAT 09/29/2017 1:1 3 AM CDT CBC WITH AUTO DIFFERENTIAL STAT 09/29/2017 1:13 AM CDT HCG, BLOOD, QUANTITATIVE STAT 09/29/2017 1:13 AM CDT LIPASE STAT 09/29/2017 1:13 AM CDT COMPREHENSIVE METABOLIC PANEL STAT 09/29/2017 1:13 AM CDT DISCHARGE LABORATORY CUMULATIVE REPORT 09/29/2017 12:00 AM CDT documented in this encounter Results * CT Abdomen Pelvis W Contrast (09/29/2017 3:43 AM CDT) Anatomical Region Laterality Modality Body N/A Computed Tomogra phy Impressions 09/29/2017 12:50 PM CDT 1. ??Status post cholecystectomy. 2. ??Borderline prominent spleen. 3. ??2.7 cm left ovarian cyst. 4. ??Minimal lumbar levoscoliosis. Preliminary report faxed to Emergency Department by [facility] on 09/29/2017 at 0433 hours. Electronically signed by: Xavier Holguin Jr., M.D. Narrative 09/29/2017 12:[address] ABDOMEN PELVIS W CONTRAST HISTORY: Sudden onset of left lower quadrant pain radiating to her lower left side and periumbilical area that started couple hours earlier. ?? It feels like someone is kicking me . ??No alleviating or exacerbating factors. ??Nausea, vomiting and diarrhea for the last 3 days. ??White blood cell count 11,500. COMPARISON: CT abdomen and pelvis with IV contrast on 12/21/2016. TECHNIQUE: 100 mL Optiray 320 IV. ??Spiral axial scans from lung bases to ischial tuberosities. ??Coronal and sagittal reformatted images. FINDINGS: Partially visualized lung bases are clear. Liver is normal. Gallbladder is surgically absent. ??Bile ducts are not dilated. Borderline prominent spleen has a span of 12.8 cm. Pancreas and adrenal glands appear normal. Kidneys, ureters and urinary bladder appear normal. Nabothian cysts are seen in the cervical region of the uterus. ??2.7 cm cyst is present in the left ovary and 1.4 cm cyst or prominent follicle in the right ovary. Appendix is normal. Stool quantity is normal. ??No dilated or thickened loops of colon or small bowel are seen. ??Stomach appears normal. Abdominal aorta and inferior vena cava appear normal. No lymphadenopathy or ascites is seen. ??No other abnormal abdominal mass or fluid collection is seen. Abdominal and pelvic wall structures appear intact. There is minimal lumbar levoscoliosis, as before. Procedure Note Xavier Holguin MD - 09/29/2017 CT ABDOMEN PELVIS W CONTRAST HISTORY: Sudden onset of left lower quadrant pain radiating to her lower left side and periumbilical area that started couple hours earlier. It feels like someone is kicking me . No alleviating or exacerbating factors. Nausea, vomiting and diarrhea for the last 3 days. White blood cell count 11,500. COMPARISON: CT abdomen and pelvis with IV contrast on 12/21/2016. TECHNIQUE: 100 mL Optiray 320 IV. Spiral axial scans from lung bases to ischial tuberosities. Coronal and sagittal reformatted images. FINDINGS: Partially visualized lung bases are clear. Liver is normal. Gallbladder is surgically absent. Bile ducts are not dilated. Borderline prominent spleen has a span of 12.8 cm. Pancreas and adrenal glands appear normal. Kidneys, ureters and urinary bladder appear normal. Nabothian cysts are seen in the cervical region of the uterus. 2.7 cm cyst is present in the left ovary and 1.4 cm cyst or prominent follicle in the right ovary. Appendix is normal. Stool quantity is normal. No dilated or thickened loops of colon or small bowel are seen. Stomach appears normal. Abdominal aorta and inferior vena cava appear normal. No lymphadenopathy or ascites is seen. No other abnormal abdominal mass or fluid collection is seen. Abdominal and pelvic wall structures appear intact. There is minimal lumbar levoscoliosis, as before. IMPRESSION: 1. Status post cholecystectomy. 2. Borderline prominent spleen. 3. 2.7 cm left ovarian cyst. 4. Minimal lumbar levoscoliosis. Preliminary report faxed to Emergency Department by [facility] on 09/29/2017 at 0433 hours. Electronically signed by: Xavier Holguin Jr., M.D. Bruno Campos Jr., MD IM CT PROCEDURES Final Result * Urinalysis, microscopic only (09/29/2017 1:31 AM CDT) WBC, ur 0-5 0 - 5 /HPF [facility]) RBC, ur 0-5 0 - 5 /HPF [facility] Epithelial cells, squamous, ur 1-5 0 - 5 /HPF [facility]) Bacteria, ur Negative [facility]) Hyaline casts, ur 1-5 0 - 10 /LPF [facility]) Urine 09/29/2017 1:31 AM CDT 09/29/2017 1:35 AM CDT Narrative [facility] ([place]) - 09/29/2017 1:55 AM CDT us Bruno Campos Jr., MD LAB URINE ORDERABL ES Final Result [facility] ([place]) 1 [facility] Department [place] [address] * (ABNORMAL) Urinalysis reflex to microscopic and culture Urine (09/29/2017 1:31 AM CDT) Color, ur Yellow Yellow [facility] ([place]) Clarity, ur Clear Clear [facility] ([place]) Specific gravity, ur 1.006(L) 1.010 - 1.025 [facility] ([place]) pH, urine 6.0 [facility] ([place]) Protein, ur ql Negative Negative [facility] ([place]) Glucose, ur ql Negative Negative [facility] ([place]) Ketones, ur Negative Negative [facility] ([place]) Bilirubin, ur Negative Negative [facility] ([place]) Blood, ur 1+(A) Negative [facility] ([place]) Urobilinogen, ur 0.2 <2.0 mg/dL [facility] ([place]) Nitrite, ur Negative Negative [facility] ([place]) Leukocyte esterase, ur Negative Negative [facility]) Urine 09/29/2017 1:31 AM CDT 09/29/2017 1:35 AM CDT Narrative [facility] ([place]) - 09/29/2017 1:55 AM CDT ?? Urine pH is affected by diet, medications, systemic acid-base disturbances, and renal tubular function. ??pH may affect urinary stone formation. ??For example, urine pH below 6.0 may help reduce the tendency for calcium phosphate stones and pH greater than 6.0 may reduce the tendency for uric acid stone formation. Source: [place] [employer]. Last revised 06-14-2017 us Bruno Campos Jr., MD LAB MICROBIOLOGY - GENERAL ORDERABLES Final Result [facility] ([place] [address] [facility] Department [place] [address] * eGFR (09/29/2017 1:13 AM CDT) eGFR >60 mL/min/1.7 3 m2 [facility] ([place]) Comment: Interpretive Data Reference Interval Normal ?>/= 90 mL/min/1.73m2 Mildly decreased* ? 60 - 89 mL/min/1.73m2 Mildly to moderately decreased ?45 - 59 mL/min/1.73m2 Moderately to severely decreased ??30 - 44 mL/min/1.73m2 Severely decreased ?15 - 29 mL/min/1.73m2 Kidney Failure ?< 15 ??mL/min/1.73m2 *Relative to young adult level If -[place] multiply value by 1.16. Estimated glomerular filtration [...] was last reviewed 2015. Blood specimen (specimen) 09/29/2017 1:13 AM CDT 09/29/2017 1:16 AM CDT Narrative [facility] ([place]) - 09/29/2017 2:03 AM CDT us Bruno Campos Jr., MD LAB BLOOD ORDERABL ES Final Result [facility] ([place]) 1 [facility] Department [place] [address] * (ABNORMAL) Differential, auto (09/29/2017 1:13 AM CDT) Neutrophil abs 7.1(H) 1.7 - 6.5 K/cumm [facility] ([place]) Imm gran abs 0.0 0.0 - 0.1 K/cumm [facility] ([place]) Lymphocyte abs 3.4(H) 0.8 - 3.3 K/cumm [facility] ([place]) Monocyte abs 0.8 0.2 - 0.8 K/cumm [facility] ([place]) Eosinophil abs 0.1 0.0 - 0.5 K/cumm [facility] ([place]) Basophil abs 0.1 0.0 - 0.1 K/cumm [facility] ([place]) Neutrophil pct 62.0 % [facility] ([place]) Comment: Interpretive [...] was last revised on 2017. Lymphocyte pct 29.5 % [facility] ([place]) Comment: Interpretive Data Percent cell count reference ranges are not reported, since discordance with absolute values may lead to misinterpretation of CBC data. Current Interpretive Data was last revised on 2017. Monocyte pct 6.5 % [facility] ([place]) Comment: Interpretive Data Percent cell count reference ranges are not reported, since discordance with absolute values may lead to misinterpretation of CBC data. Current Interpretive Data was last revised on 2017. Eosinophil pct 1.1 % [facility] ([place]) Comment: Interpretive Data Percent cell count reference ranges are not reported, since discordance with absolute values may lead to misinterpretation of CBC data. Current Interpretive Data was last revised on 2017. Basophil pct 0.5 % [facility] ([place]) Comment: Interpretive Data Percent cell count reference ranges are not reported, since discordance with absolute values may lead to misinterpretation of CBC data. Current Interpretive Data was last revised on 2017. Blood specimen (specimen) 09/29/2017 1:13 AM CDT 09/29/2017 1:16 AM CDT Narrative [facility] ([place]) - 09/29/2017 1:18 AM CDT Bruno Campos Jr., MD LAB BLOOD ORDERABL ES Final Result Performing Organization Address City/[facility]/ZIP Co de Phone Number [facility] ([place]) 1 [facility] [place] [address] * Lipase (09/29/2017 1:13 AM CDT) Lipase 32 10 - 99 Units/L [facility] ([place]) Blood specimen (specimen) 09/29/2017 1:13 AM CDT 09/29/2017 1:29 AM CDT Narrative [facility] ([place]) - 09/29/2017 2:01 AM CDT Bruno Campos Jr., MD LAB BLOOD ORDERABL ES Final Result [facility] ([place]) 1 [facility] [place] [address] * hCG, blood, quantitative (09/29/2017 1:13 AM CDT) hCG, quant <5 0 - 5 mIUnits/mL [facility] ([place]) Comment: Interpretive Data NInterpretive Data Negative: ?<5 mIU/mL ? Borderline: ??6-25 mIU/mL Positive: ?>25 mIU/mL Approx Gest Age ? Approx HCG Concentration 3 - 4 Weeks ?9 - 130 4 - 5 Weeks ?75 - 2600 5 - 6 Weeks ?850 - 20,800 6 - 7 Weeks ?4000 - 100,200 7 - 12 Weeks ? [address] - 289,000 16 - 29 Weeks ? [address] - 137,000 29 - 41 Weeks ? 900 - 60,000 Current interpretive data was last revised on 2014 Blood specimen (specimen) 09/29/2017 1:13 AM CDT 09/29/2017 1:29 AM CDT Narrative [facility] ([place] - 09/29/2017 2:01 AM CDT us Bruno Campos Jr., MD LAB BLOOD ORDERABL ES Final Result [facility] ([place] 1 [facility] Department [place] [address] * Comprehensive metabolic panel (09/29/2017 1:13 AM CDT) Sodium 138 135 - 145 mmol/L [facility] ([place]) Potassium, pl 3.6 3.3 - 4.9 mmol/L [facility]) CO2 25 22 - 32 mmol/L [facility]) BUN 11 8 - 25 mg/dL [facility]) Glucose 111 70 - 199 mg/dL [facility] ([place]) [...] Current interpretive data was last revised 2017. Creatinine 0.73 0.60 - 1.10 mg/dL [facility]) Calcium 9.2 8.5 - 10.3 mg/dL [facility]) Chloride 99 97 - 110 mmol/L [facility]) Albumin 3.7 3.5 - 5.0 g/dL [facility]) AST 20 10 - 45 Units/L [facility]) ALT 26 7 - 45 Units/L [facility]) Alk phos 119 70 - 260 Units/L [facility]) Bilirubin, total <0.2 0.1 - 1.2 mg/dL [facility] ([place]) Protein, pl 7.6 6.5 - 8.5 g/dL [facility]) Anion gap 14 2 - 15 mmol/L [facility]) Blood specimen (specimen) 09/29/2017 1:13 AM CDT 09/29/2017 1:16 AM CDT Narrative [facility] ([place]) - 09/29/2017 2:03 AM CDT us Bruno Campos Jr., MD LAB BLOOD ORDERABL ES Final Result [facility] ([place] 1 [facility] Department [place] [address] * (ABNORMAL) CBC with auto differential (09/29/2017 1:13 AM CDT) WBC 11.5(H) 3.8 - 9.9 K/cumm [facility] ([place]) RBC 4.72 3.90 - 5.20 M/cumm [facility]) Hgb 11.4(L) 11.9 - 15.5 g/dL [facility]) Hct 36.2 35.6 - 45.5 % [facility]) MCV 76.7(L) 81.3 - 96.4 fL [facility] ([place]) MCH 24.2(L) 27.1 - 33.3 pg [facility]) MCHC 31.5(L) 32.3 - 35.7 g/dL [facility]) RDW CV 16.1(H) 11.1 - 14.9 % [facility] ([place]) RDW SD 44.4 35.7 - 48.1 fL [facility] ([place]) Plt 324 150 - 400 K/cumm [facility] ([place]) MPV 10.9 9.1 - 12.3 fL [facility]) NRBC abs 0.00 0.00 - 0.01 K/cumm [facility] ([place]) Blood specimen (specimen) 09/29/2017 1:13 AM CDT 09/29/2017 1:16 AM CDT Narrative [facility] ([place] - 09/29/2017 1:18 AM CDT Bruno Campos Jr., MD LAB BLOOD ORDERABL ES Final Result [facility] ([place]) 1 [facility] Department [place] [address] * DISCHARGE LABORATORY CUMULATIVE REPORT (09/29/2017 12:00 AM CDT) Narrative 09/29/2017 12:00 AM CDT Ordered by an unspecified provider. Historical Provider LAB BLOOD ORDERABLES Farida l Result documented in this encounter Visit Diagnoses Diagnosis Generalized abdominal pain- Primary Abdominal pain, generalized Viral syndrome Unspecified viral infection, in conditions classified elsewhere and of unspecified site documented in this encounter Administered Medications Inactive Administered Medications - up to 3 most recent administrations Medication Order MAR Action Action Date Dose Rate Site diphenhydrAMINE (BENADRYL) injection 25 mg 25 mg, intravenous, Once, On 09/29/17 at 0415, For 1 dose Given 09/29/2017 4:07 AM CDT 25 mg ioversol intravenous syringe 100 mL 100 mL, intravenous, Once in imaging, contrast, Starting on 09/29/17 at 0328, For 1 dose Given 09/29/2017 3:29 AM CDT 100 mL ketorolac (TORADOL) injection 30 mg 30 mg, intravenous, Once, On 09/29/17 at 0215, For 1 dose Given 09/29/2017 2:56 AM CDT 30 mg metoclopramide (REGLAN) injection 10 mg 10 mg, intravenous, Once, On 09/29/17 at 0415, For 1 dose Given 09/29/2017 4:08 AM CDT 10 mg ondansetron (ZOFRAN) injection 4 mg 4 mg, intravenous, Once, On 09/29/17 at 0215, For 1 dose Given 09/29/2017 2:54 AM CDT 4 mg documented in this encounter Active and Recently Administered Medications Times are shown in CDT. Scheduled Medication Order 09/27/2017 09/28/2017 09/29/2017 diphenhydrAMINE (BENADRYL) injection 25 mg (COMPLETED) 25 mg, intravenous, Once, On 09/29/17 at 0415, For 1 dose 0407 (Given - Provid er: Sara Robb RN) ketorolac (TORADOL) injection 30 mg (COMPLETED) 30 mg, intravenous, Once, On 09/29/17 at 0215, For 1 dose 0256 (Given - Provid er: Amy Jerez, EBEN) metoclopramide (REGLAN) injection 10 mg (COMPLETED) 10 mg, intravenous, Once, On 09/29/17 at 0415, For 1 dose 0408 (Given - Provid er: Sara Robb RN) ondansetron (ZOFRAN) injection 4 mg (COMPLETED) 4 mg, intravenous, Once, On 09/29/17 at 0215, For 1 dose 0254 (Given - Provid er: Amy Jerez RN) PRN Medication Order 09/27/2017 09/28/201709/2909/29/2017 ioversol intravenous syringe 100 mL (COMPLETED) 100 mL, intravenous, Once in imaging, contrast, Starting on 09/29/17 at 0328, For 1 dose 0329 (Given - Provid er: Leslye Lara, R-RT) documented in this encounter Orders IV Count Last Ordered Date First Orde red Date SALINE LOCK IV 1 09/29/2017 documented in this encounter Care Teams Dispatcher Tugboat Relationship Specialty Start Date End Date Maryellen Hand MD [address] [place] [id number] PCP - General 08/23/17 12/25/17 No, Physician 01/10/17 documented as of this encounter
--- OUTSIDE RECORDS SUMMARY | 2024-06-13 23:59 | XMS_ITS | Encounter Summary ---
Author Organization [facility] Healthcare Address [address] [place] [address] Care Team Providers Care Wordpress Developer Name Role Phone Unavailable Primary Care Provider Unavailabl e Encounter Details Date Type Department Care Team ([facility] st Contact Info) Description 09/06/2016 Orders Only [facility] [phone] Jerry Cee MD [address] [place] [address] # [place] [address] Social History Tobacco Use Types Packs/Day Years Used Date Smoking Tobacco: Never Assessed Comments Unknown Sex and Gender Information Value Date Recorded Sex Assigned at Not on file Legal Sex Female 8:56 PM [employer] Gender Identity Not on file Sexual Orientation Not on file documented as of this encounter Plan of Treatment Not on file documented as of this encounter Procedures Procedure Name Priority Date/Time Associated Diagnosis Comments DIFFERENTIAL AUTO STAT 09/06/2016 8:5 4 PM CDT documented in this encounter Results * (ABNORMAL) Differential, auto (09/06/2016 8:54 PM CDT) Neutrophil pct 79.9 44.0 - 80.0 % [facility] Imm gran pct 0.4 0.0 - 1.0 % [facility] Lymphocyte pct 13.8 13.0 - 44.0 % [facility] Monocyte pct 5.5 2.0 - 11.0 % [facility] Eosinophil pct 0.2 0.0 - 6.0 % [facility] Basophil pct 0.2 0.0 - 3.0 % [facility] Neutrophil abs 7.73(H) 1.60 - 7.00 K/cumm [facility] Imm gran abs 0.04 0.00 - 0.20 K/cumm [facility] Lymphocyte abs 1.33 0.50 - 4.30 K/cumm [facility] Monocyte abs 0.53 0.10 - 1.00 K/cumm [facility] Eosinophil abs 0.02 0.00 - 0.60 K/cumm [facility] Basophil abs 0.02 0.00 - 0.30 K/cumm [facility] Blood specimen (specimen) 09/06/2016 8:54 PM CDT 09/06/2016 8:57 PM CDT us Jerry Cee MD LAB BLOOD ORDERABLES Final Re sult [facility] ([place]) [facility] Department [place] [address] documented in this encounter Visit Diagnoses Not on filedocumented in this encounter
--- OUTSIDE RECORDS SUMMARY | 2024-06-13 23:59 | XMS_ITS | Encounter Summary ---
Author Organization [facility] Healthcare Address [address] [place] [address] Care Team Providers Care [employer] Teacher Name Role Phone No, Physician Unavailable Miscellaneous, Not In File Primary Care Provider Unavailable Encounter Details Date Type Department Care Team (Late st Contact Info) Description 05/15/2017 3:53 PM FELT PAD CUTTER - 05/18/2017 9:25 PM FELT PAD CUTTER Hospital Encounter [facility] [address] [place] [address] Lan Nash MD [address] [place] [address] [address] Epigastric pain (Primary Dx); Biliary dyskinesia Discharge Disposition: Discharge to home or self care Social History Tobacco Use Types Packs/Day Years Used Date Smoking Tobacco: Never Smokeless Tobacco: Never Comments No Sex and Gender Information Value Date Recorded Sex Assigned at Not on file Legal Sex Female 8:56 PM FELT PAD CUTTER Gender Identity Not on file Sexual Orientation Not on file documented as of this encounter Last Filed Vital Signs Vital Sign Reading Time Taken Comments Blood Pressure 138/87 05/18/2017 7:52 PM FELT PAD CUTTER Pulse 93 05/18/2017 7:52 PM FELT PAD CUTTER Temperature 36.9 ??C (98.4 ??F) 05/18/2017 7:52 PM CS T Respiratory Rate 18 05/18/2017 7:52 PM FELT PAD CUTTER Oxygen Saturation 97% 05/18/2017 7:52 PM FELT PAD CUTTER Inhaled Oxygen Concentration - - Weight 127.2 kg (280 lb 6.8 oz) 05/15/2017 4:35 PM FELT PAD CUTTER Height 162.6 cm (5' 4 ) 05/15/2017 4:35 PM FELT PAD CUTTER Body Mass Index 48.13 05/15/2017 4:35 PM FELT PAD CUTTER documented in this encounter Discharge Summaries * Lan Nash MD - 05/18/2017 9:25 PM CST Inpatient Discharge Summary BRIEF OVERVIEW Admitting Provider: Lan Nash MD Discharge Provider: No att. providers found Primary Care Physician at Discharge: Not In Miscellaneous None Admission Date: 05/15/2017 Discharge Date: 05/18/2017 Primary Discharge Diagnosis: Biliary dyskinesia Secondary Discharge Diagnosis: Biliary dyskinesia BMI 45.0-49.9, adult ([facility]) * No resolved hospital problems. * DETAILS OF HOSPITAL STAY Presenting Problem/History of Present Illness: Biliary dyskinesia Typical upper abdominal pain. Patient was admitted from clinic. Hospital Course: Workup revealed unremarkable gallbladder on ultrasound. No stones. However the patient's symptoms of abdominal pain with nausea persisted. HIDA scan was obtained. This demonstrated decreased ejectionfraction. She was scheduled for laparoscopic cholecystectomy which was completed without complication. Active Issues Requiring Follow-up: None Test Results Pending at Discharge: Order Current Status Surgical pathology Collected (05/18/17 1529) Operative Procedures Performed: Procedure(s): Laparoscopic Cholecystectomy Other Procedures: None Pertinent Test Results: None Discharge Details Physical Exam at Discharge: Discharge Condition: good Pulse: 93 Resp: 18 BP: 138/87 Temp: 36.9 ??C (98.4 ??F) Weight: 127.2 kg (280 lb 6.8 oz) Pertinent Exam Findings at Discharge: Incisions clean dry and intact abdomen soft appropriately tender to palpation Discharge Disposition: Discharge to home or self care Code Status at Discharge: Full Discharge Instructions: Activity Instructions Discharge Activity: Lifting restrictions -Do NOT lift greater than 10 pounds for 4 weeks. Discharge Activity: Walking -You may walk as tolerated. Diet Instructions Adult Discharge Diet Diet Type: Return to previous diet Low fat intake Other Instructions Call provider for: increased temperature -Temperature greater than 101 degrees F Call provider for: nausea, vomiting, diarrhea -If you have persistent nausea, vomiting or diarrhea that does not stop Call provider for: redness, tenderness, or signs of infection (pain, swelling, redness, odor or green/yellow discharge around incision site) Call provider for: severe uncontrolled pain Call provider for: any other concerns or questions Call provider if: you feel dizzy, very tired or like you may faint Care Instructions: Incisions -Keep incisions clean and dry Care Instructions: No tub baths -No tub baths, whirlpools or swimming until your provider says it's ok. Care Instructions: Shower -You may shower in 1 days If you have any questions or concerns, please do not hesitate to call [phone] Discharge Medications: Your medication list START taking these medications oxyCODONE-acetaminophen 5-325 mg per tablet Commonly known as: PERCOCET Take 1-2 tablets by mouth every 4 (four) hours as needed for pain. CHANGE how you take these medications ondansetron ODT 4 mg disintegrating tablet Commonly known as: ZOFRAN-ODT What changed: Another medication with the same name was added. Make sure you understand how and when to take each. Notes to patient: For nausea and vomiting ondansetron ODT 4 mg disintegrating tablet Commonly known as: ZOFRAN-ODT Take 1 tablet (4 mg total) by mouth 4 (four) times a day as needed for nausea or vomiting. What changed: You were already taking a medication with the same name, and this prescription was added. Make sure you understand how and when to take each. CONTINUE taking these medications HYDROcodone-acetaminophen 5-325 mg per tablet Commonly known as: NORCO Notes to patient: For pain Outpatient Follow-Up: No future appointments. PAD CUTTER documented in this encounter Discharge Instructions * Discharge Instr - Other Orders* Anu Pelletier RN - 05/18/2017 7:24 PM FELT PAD CUTTER If you have any questions or concerns, please do not hesitate to call [phone] PAD CUTTER * Attachments The following attachments cannot be sent through Care Everywhere. * Oxycodone/Acetaminophen (By mouth) (Burmese) * Ondansetron (By mouth, Into the mouth) (Burmese) documented in this encounter Medications at Time of Discharge HYDROcodone-acetamin ophen (NORCO) 5-325 mg per tabletIndications:Pa in TK 1 TO 2 TS PO Q 4 H PRN P 0 05/14/2017 8 ondansetron ODT (ZOFRAN-ODT) 4 mg disintegrating tablet DIS ONE T PO Q 8 H PRN N 0 02/15/2017 8 ondansetron ODT (ZOFRAN-ODT) 4 mg disintegrating tablet Take 1 tablet (4 mg total) by mouth 4 (four) times a day as needed for nausea or vomiting. 20 tablet 05/18/2017 8 oxyCODONE-acetaminop hen (PERCOCET) 5-325 mg per tabletIndications:Pa in Take 1-2 tablets by mouth every 4 (four) hours as needed for pain. 30 tablet 05/18/2017 8 documented as of this encounter Ordered Prescriptions Prescription Sig Dispense Quantity Refills Last Filled Start Date End Date ondansetron ODT (ZOFRAN-ODT) 4 mg disintegrating tablet Take 1 tablet (4 mg total) by mouth 4 (four) times a day as needed for nausea or vomiting. 20 tablet 05/18/2017 8 oxyCODONE-acetaminop hen (PERCOCET) 5-325 mg per tabletIndications:Pa in Take 1-2 tablets by mouth every 4 (four) hours as needed for pain. 30 tablet 05/18/2017 8 documented in this encounter Discharge Disposition Disposition Code Departure Means Destination Discharge to home or self care documented in this encounter Progress Notes * Luma Huerta RD - 05/18/2017 9:[address] FOLLOW UP ASSESSMENT; Ht;5'4 Wt;127.2 KG IBW;55 KG 23 CRUZITO, NO BREAKDOWN NOTED. NO FURTHER LABS TO ASSESS 05/18. FLAGYL, ZOFRAN. PT C/O NAUSEA 05/17. ACTIVE BOWEL SOUNDS 05/17. PT NPO/CLEAR LIQUIDS X 3 DAYS. INCREASE DIET TOLLERATED. INTAKE > 50% OF MEALS BY NEXT ASSESSMENT. PAD CUTTER * Lan Nash MD - 05/17/2017 3:41 PM CST Daily Progress Subjective Chief complaint of abdominal pain. Interval History: Still unable to tolerate a diet. Ongoing nausea and vomiting. Pain is still present. HIDA scan demonstrates decreased ejection fraction. Objective Vitals: 24hr Min/Max: Temp Min: 36.2 ??C (97.1 ??F) Max: 36.8 ??C (98.3 ??F) Pulse Min: 88 Max: 104 BP Min: 119/55 Max: 151/84 Resp Min: 18 Max: 20 SpO2 Min: 97 % Max: 98 % Most Recent : Vitals: 05/17/17 1215 BP: 151/84 Pulse: 100 Resp: 18 Temp: 36.7 ??C (98.1 ??F) SpO2: 98% I/O last 2 completed shifts: In: 2544 [P.O.:1180; I.V.:1364] Out: - I/O this shift: In: 420 [P.O.:420] Out: - Physical Exam: Alert oriented no acute distress. Abdomen remains tender to palpation in the epigastrium and right upper quadrant. No guarding rebound or peritoneal signs. Lab/Radiology/Diagnostic Review: Imaging review: I have reviewed the result(s) As mentioned above Assessment/Plan Active Problems: Biliary dyskinesia Patient has been made NPO. We will remove her gallbladder laparoscopically tomorrow PAD CUTTER * Luma Huerta RD - 05/16/2017 10:[address] INITIAL ASSESSMENT; Ht;5'4 Wt;127.2 KG IBW;55 KG ALB 3.1, H/H 12.9/33.9(05/16). ROCEPHIN, FLAGYL, ZOFRAN. PT C/O POOR INTAKE. PT IS 233% IBW, 48.1 BMI. PT NPO X < 1 DAY.SLIGHTLY LOW VISCERAL PROTEIN STORES. DIET INCREASE TO MEET NEEDS. FOLLOW DIET, INTAKE, LABS, SKIN. PAD CUTTER documented in this encounter H&P Notes * Lan Nash MD - 05/18/2017 2:12 PM CST I have reviewed the H&P, examined the patient, and endorse the findings as written. Plan of Care : Based on the above findings, I consider summer to be an acceptable risk for : .Procedure(s): Laparoscopic Cholecystectomy. Lan Nash MD. Date: 05/18/2017 Time: 2:12 PM PAD CUTTER Source Note - Eyers, Nidia Clark NP - 05/15/2017 8:02 PM FELT PAD CUTTER History and Physical Subjective Patient is a 17 y.o. female with chief complaint of right upper quadrant pain, vomiting, chills, and weakness. HPI: The patient presented to our office with complaints of right upper abdominal pain for 3 months thathad gotten increasingly worse over the last week. The pain is associated with vomiting, chills, andweakness. She has not been able to keep any food down for the last 36 hours. Even water causes her pain to worsen. She has not had any fevers, but has episodes of feeling hot and cold with diaphoresis. She has been seen in [facility] ER and was sent home with pain and nausea medications. History reviewed. No pertinent past medical history. Past Surgical History: Procedure Laterality Date ??? OTHER SURGICAL HISTORY myringotomy ??? OTHER SURGICAL HISTORY exploratory laparoscopic cyst on ovary HOME MEDICATIONS : HYDROcodone-acetaminophen (NORCO) 5-325 mg per tablet ondansetron ODT (ZOFRAN-ODT) 4 mg disintegrating tablet Allergies Allergen Reactions ??? Penicillins Swelling Social History Substance Use Topics ??? Smoking status: Never Smoker ??? Smokeless tobacco: Never Used ??? Alcohol use Not on file Family History Problem Relation Age of Onset ??? Anemia Mother ??? Cancer Father ??? Bladder Cancer Father ??? Heart disease Father ??? Stroke Father ??? Diabetes Father ??? Multiple sclerosis Father's Sister ??? Hearing loss Maternal Grandfather ??? Stroke Paternal Grandmother ??? Diabetes Paternal Grandmother ??? Hearing loss Paternal Grandfather ??? Diabetes Paternal Grandfather Review of Systems All review of systems are negative except for ruq abdominal pain, nausea, vomiting, chills, weakness. Vitals: Arrival Vitals Temp 05/15/17 1635 36.7 ??C (98 ??F) Pulse 05/15/17 1635 103 Resp 05/15/17 1635 16 BP 05/15/17 1635 156/92 SpO2 05/15/17 1635 98 % Temp src 05/15/17 1635 Temporal Heart Rate Source 05/15/171958 Monitor Patient Position 05/15/171958 Lying BP Location 05/15/17 1635 Right arm FiO2 (%) -- 24hr Min/Max: Temp Min: 36.7 ??C (98 ??F) Max: 37.1 ??C (98.7 ??F) Pulse Min: 88 Max: 103 BP Min: 116/68 Max: 156/92 Resp Min: 16 Max: 18 SpO2 Min: 97 % Max: 98 % Most Recent : Vitals: 05/15/171958 BP: 116/68 Pulse: 98 Resp: 18 Temp: 37.1 ??C (98.7 ??F) SpO2: 97% No intake/output data recorded. No intake/output data recorded. Objective Physical exam: General appearance: appears stated age, cooperative, mild distress and morbidly obese Head: Normocephalic, without obvious abnormality, atraumatic Eyes: conjunctivae/corneas clear. PERRL Neck: no JVD and supple, symmetrical, trachea midline Lungs: clear to auscultation bilaterally Heart: regular rate and rhythm, S1, S2 normal, no murmur, click, rub or gallop Abdomen:right upper quadrant tenderness, positive bowel sounds, Skin: Skin color, texture, turgor normal. No rashes or lesions or open areas. Neurologic: Alert and oriented x4, non-focal Lab/Radiology/Diagnostic Review: Laboratory review: Lab results in the last 24 hours: Recent Results (from the past 24 hour(s)) CBC with auto differential Collection Time: 05/15/17 5:32 PM Result Value Ref Range WBC 11.97 (H) 3.80 - 9.80 K/cumm RBC 4.75 3.90 - 5.00 M/cumm Hgb 11.7 (L) 12.1 - 15.1 g/dL Hct 37.5 36.1 - 44.3 % MCV 78.9 (L) 80.0 - 100.0 fL MCH 24.6 (L) 26.7 - 33.7 pg MCHC 31.2 (L) 32.7 - 36.0 g/dL RDW CV 14.2 11.5 - 14.6 % RDW SD 40.2 38.0 - 56.6 fL Platelets 274 140 - 440 K/cumm MPV 11.5 8.0 - 12.0 fL NRBC 0.0 0.0 - 0.0 % NRBC Abs 0.00 0.00 - 0.00 K/cumm Comprehensive metabolic panel Collection Time: 05/15/17 5:32 PM Result Value Ref Range Sodium 142 135 - 145 mmol/L Potassium 4.2 3.3 - 4.9 mmol/L CO2 27 22 - 32 mmol/L BUN 12 8 - 25 mg/dL Glucose 87 70 - 199 mg/dL Creatinine 0.62 0.60 - 1.10 mg/dL Calcium 8.9 8.5 - 10.3 mg/dL Chloride 100 97 - 110 mmol/L Albumin 3.5 3.5 - 5.0 g/dL AST 16 10 - 45 Units/L ALT 17 7 - 45 Units/L Alk phos 107 70 - 260 Units/L Bilirubin 0.2 0.1 - 1.2 mg/dL Protein, pl 7.4 6.5 - 8.5 g/dL Anion Gap 15 2 - 15 mmol/L Amylase Collection Time: 05/15/17 5:32 PM Result Value Ref Range Amylase 56 30 - 100 Units/L Lipase Collection Time: 05/15/17 5:32 PM Result Value Ref Range Lipase 29 10 - 70 Units/L Differential, auto Collection Time: 05/15/17 5:32 PM Result Value Ref Range Neutrophils 79.6 44.0 - 80.0 % Immature granulocytes 0.4 0.0 - 1.0 % Lymphocytes 15.0 13.0 - 44.0 % Monos 4.1 2.0 - 11.0 % Eosinophils 0.6 0.0 - 6.0 % Basophils 0.3 0.0 - 3.0 % Neutrophil absolute 9.53 (H) 1.60 - 7.00 K/cumm Immature granulocyte, abs 0.05 0.00 - 0.20 K/cumm Lymphocytes, abs 1.80 0.50 - 4.30 K/cumm Monos, abs 0.49 0.10 - 1.00 K/cumm Eosinophils, abs 0.07 0.00 - 0.60 K/cumm Basophils, abs 0.03 0.00 - 0.30 K/cumm eGFR Collection Time: 05/15/17 5:32 PM Result Value Ref Range GFR >60 mL/min/1.73 m2 Assessment /Plan IV fluids, antibiotics, gallbladder ultrasound negative for gallstones. Medicate for pain and nausea as needed. Hida scan possible. Active Problems: No Active Problems: There are no active problems currently on the Problem List. Please update the Problem List and refresh. Cosigned by Lan Nash MD at 05/16/2017 8:33 AM FELT PAD CUTTER PAD CUTTER PAD CUTTER * Nidia Vilchis NP - 05/15/2017 8:02 PM CST History and Physical Subjective Patient is a 17 y.o. female with chief complaint of right upper quadrant pain, vomiting, chills, and weakness. HPI: The patient presented to our office with complaints of right upper abdominal pain for 3 months thathad gotten increasingly worse over the last week. The pain is associated with vomiting, chills, andweakness. She has not been able to keep any food down for the last 36 hours. Even water causes her pain to worsen. She has not had any fevers, but has episodes of feeling hot and cold with diaphoresis. She has been seen in [facility] ER and was sent home with pain and nausea medications. History reviewed. No pertinent past medical history. Past Surgical History: Procedure Laterality Date ??? OTHER SURGICAL HISTORY myringotomy ??? OTHER SURGICAL HISTORY exploratory laparoscopic cyst on ovary HOME MEDICATIONS : HYDROcodone-acetaminophen (NORCO) 5-325 mg per tablet ondansetron ODT (ZOFRAN-ODT) 4 mg disintegrating tablet Allergies Allergen Reactions ??? Penicillins Swelling Social History Substance Use Topics ??? Smoking status: Never Smoker ??? Smokeless tobacco: Never Used ??? Alcohol use Not on file Family History Problem Relation Age of Onset ??? Anemia Mother ??? Cancer Father ??? Bladder Cancer Father ??? Heart disease Father ??? Stroke Father ??? Diabetes Father ??? Multiple sclerosis Father's Sister ??? Hearing loss Maternal Grandfather ??? Stroke Paternal Grandmother ??? Diabetes Paternal Grandmother ??? Hearing loss Paternal Grandfather ??? Diabetes Paternal Grandfather Review of Systems All review of systems are negative except for ruq abdominal pain, nausea, vomiting, chills, weakness. Vitals: Arrival Vitals Temp 05/15/17 1635 36.7 ??C (98 ??F) Pulse 05/15/17 1635 103 Resp 05/15/17 1635 16 BP 05/15/17 1635 156/92 SpO2 05/15/17 1635 98 % Temp src 05/15/17 1635 Temporal Heart Rate Source 05/15/171958 Monitor Patient Position 05/15/171958 Lying BP Location 05/15/17 1635 Right arm FiO2 (%) -- 24hr Min/Max: Temp Min: 36.7 ??C (98 ??F) Max: 37.1 ??C (98.7 ??F) Pulse Min: 88 Max: 103 BP Min: 116/68 Max: 156/92 Resp Min: 16 Max: 18 SpO2 Min: 97 % Max: 98 % Most Recent : Vitals: 05/15/171958 BP: 116/68 Pulse: 98 Resp: 18 Temp: 37.1 ??C (98.7 ??F) SpO2: 97% No intake/output data recorded. No intake/output data recorded. Objective Physical exam: General appearance: appears stated age, cooperative, mild distress and morbidly obese Head: Normocephalic, without obvious abnormality, atraumatic Eyes: conjunctivae/corneas clear. PERRL Neck: no JVD and supple, symmetrical, trachea midline Lungs: clear to auscultation bilaterally Heart: regular rate and rhythm, S1, S2 normal, no murmur, click, rub or gallop Abdomen:right upper quadrant tenderness, positive bowel sounds, Skin: Skin color, texture, turgor normal. No rashes or lesions or open areas. Neurologic: Alert and oriented x4, non-focal Lab/Radiology/Diagnostic Review: Laboratory review: Lab results in the last 24 hours: Recent Results (from the past 24 hour(s)) CBC with auto differential Collection Time: 05/15/17 5:32 PM Result Value Ref Range WBC 11.97 (H) 3.80 - 9.80 K/cumm RBC 4.75 3.90 - 5.00 M/cumm Hgb 11.7 (L) 12.1 - 15.1 g/dL Hct 37.5 36.1 - 44.3 % MCV 78.9 (L) 80.0 - 100.0 fL MCH 24.6 (L) 26.7 - 33.7 pg MCHC 31.2 (L) 32.7 - 36.0 g/dL RDW CV 14.2 11.5 - 14.6 % RDW SD 40.2 38.0 - 56.6 fL Platelets 274 140 - 440 K/cumm MPV 11.5 8.0 - 12.0 fL NRBC 0.0 0.0 - 0.0 % NRBC Abs 0.00 0.00 - 0.00 K/cumm Comprehensive metabolic panel Collection Time: 05/15/17 5:32 PM Result Value Ref Range Sodium 142 135 - 145 mmol/L Potassium 4.2 3.3 - 4.9 mmol/L CO2 27 22 - 32 mmol/L BUN 12 8 - 25 mg/dL Glucose 87 70 - 199 mg/dL Creatinine 0.62 0.60 - 1.10 mg/dL Calcium 8.9 8.5 - 10.3 mg/dL Chloride 100 97 - 110 mmol/L Albumin 3.5 3.5 - 5.0 g/dL AST 16 10 - 45 Units/L ALT 17 7 - 45 Units/L Alk phos 107 70 - 260 Units/L Bilirubin 0.2 0.1 - 1.2 mg/dL Protein, pl 7.4 6.5 - 8.5 g/dL Anion Gap 15 2 - 15 mmol/L Amylase Collection Time: 05/15/17 5:32 PM Result Value Ref Range Amylase 56 30 - 100 Units/L Lipase Collection Time: 05/15/17 5:32 PM Result Value Ref Range Lipase 29 10 - 70 Units/L Differential, auto Collection Time: 05/15/17 5:32 PM Result Value Ref Range Neutrophils 79.6 44.0 - 80.0 % Immature granulocytes 0.4 0.0 - 1.0 % Lymphocytes 15.0 13.0 - 44.0 % Monos 4.1 2.0 - 11.0 % Eosinophils 0.6 0.0 - 6.0 % Basophils 0.3 0.0 - 3.0 % Neutrophil absolute 9.53 (H) 1.60 - 7.00 K/cumm Immature granulocyte, abs 0.05 0.00 - 0.20 K/cumm Lymphocytes, abs 1.80 0.50 - 4.30 K/cumm Monos, abs 0.49 0.10 - 1.00 K/cumm Eosinophils, abs 0.07 0.00 - 0.60 K/cumm Basophils, abs 0.03 0.00 - 0.30 K/cumm eGFR Collection Time: 05/15/17 5:32 PM Result Value Ref Range GFR >60 mL/min/1.73 m2 Assessment /Plan IV fluids, antibiotics, gallbladder ultrasound negative for gallstones. Medicate for pain and nausea as needed. Hida scan possible. Active Problems: No Active Problems: There are no active problems currently on the Problem List. Please update the Problem List and refresh. Cosigned by Lan Nash MD at 05/16/2017 8:33 AM FELT PAD CUTTER PAD CUTTER PAD CUTTER documented in this encounter Nursing Notes * Shona Ontiveros RN - 05/18/2017 9:41 PM CST Patient discharged home with prescriptions and information packet. Shona Ontiveros RN PAD CUTTER documented in this encounter Miscellaneous Notes * Plan of Care - Shona Ontiveros RN - 05/18/2017 9:38 PM CST Activity: ??? Risk for activity intolerance will decrease Adequate for Discharge Fluid Volume: ??? Maintenance of adequate hydration will improve Adequate for Discharge Health Behavior: ??? Understanding of discharge needs will improve Adequate for Discharge ??? Ability to state signs and symptoms to report to health care provider will improve Adequate forDischarge Lack of Knowledge: ??? Knowledge of disease or condition will improve Adequate for Discharge ??? Ability to state and carry out methods to decrease the pain will improve Adequate for Discharge Lack of Knowledge: ??? Understanding of the prescribed diet will improve Adequate for Discharge Nutritional: ??? Nutritional status will be supported Adequate for Discharge Nutritional: ??? Consumption of the prescribed amount of daily calories will improve Adequate for Discharge ??? Demonstration of interest in eating will improve Adequate for Discharge Physical Regulation: ??? Complications related to the disease process, condition or treatment will be avoided or minimized Adequate for Discharge ??? Ability to maintain clinical measurements within normal limits will improve Adequate for Discharge Sensory: ??? Ability to identify factors that increase the pain will improve Adequate for Discharge ??? Ability to notify healthcare provider of pain before it becomes unmanageable or unbearable willimprove Adequate for Discharge ??? Pain level will decrease Adequate for Discharge Goals: Clinical Goals for the Shift: reduce pain and nausea End of Shift Summary: Patient complained of pain. Medicated as ordered with relief. Patient discharged home with grandmother with prescriptions and information. Shona Ontiveros RN PAD CUTTER * Plan of Care - Archana Strange RN - 05/18/2017 6:54 PM CST Activity: ??? Risk for activity intolerance will decrease Progressing Fluid Volume: ??? Maintenance of adequate hydration will improve Progressing Health Behavior: ??? Understanding of discharge needs will improve Progressing ??? Ability to state signs and symptoms to report to health care provider will improve Progressing Lack of Knowledge: ??? Knowledge of disease or condition will improve Progressing ??? Ability to state and carry out methods to decrease the pain will improve Progressing Lack of Knowledge: ??? Understanding of the prescribed diet will improve Progressing Nutritional: ??? Nutritional status will be supported Progressing Nutritional: ??? Consumption of the prescribed amount of daily calories will improve Progressing ??? Demonstration of interest in eating will improve Progressing Physical Regulation: ??? Complications related to the disease process, condition or treatment will be avoided or minimized Progressing ??? Ability to maintain clinical measurements within normal limits will improve Progressing Sensory: ??? Ability to identify factors that increase the pain will improve Progressing ??? Ability to notify healthcare provider of pain before it becomes unmanageable or unbearable willimprove Progressing ??? Pain level will decrease Progressing Goals: Patient alert and oriented, independent within her room.Patient remained NPO until surgery this afternoon. Patient c/o pain and nausea before and after procedure, medications given. Patient can discharge home as long as pain and diet is tolerated. End of Shift Summary:Will notify Doctor of any acute changes. Patient will discharge home when ready. PAD CUTTER * Op Note - Lan Nash MD - 05/18/2017 3:18 PM CST Operative Report SURGEON: Lan Nash MD SURGICAL TEAM: Surgeon(s) and Role: * Lan Nash MD - Primary DATE OF SURGERY : 05/15/2017 - 05/18/2017 PREOPERATIVE DIAGNOSIS: * biliary colic POSTOPERATIVE DIAGNOSIS: Post-op Diagnosis * Biliary colic [K80.50] PROCEDURE: Laparoscopic Cholecystectomy INDICATION FOR PROCEDURE: Typical upper abdominal pain with nausea and vomiting. HIDA scan showed decreased ejection fraction ANESTHESIA: General IMPLANTS: Nothing was implanted during the procedure OPERATIVE DETAILS Incision type: Estimated Blood Loss: No blood loss documented. Urine output : mls Intraoperative Fluids: mls Blood/Blood Products Transfused: 0 mls Specimens: Order Name Source Comment Collection Info Order Time SURGICAL PATHOLOGY Gallbladder Collected By: Lan Nash MD 05/18/2017 3:28 PM PROCEDURE: The risks and benefits of the procedure were explained to the patient. Informed consent was obtained. The patient was brought to the operating room. She was placed on the OR table in the supine position. General anesthesia was induced and she was intubated. Her abdomen was prepped and draped in a sterile fashion. We anesthetized the skin and soft tissue in the areas of interest with the blood of lidocaine and Marcaine. A vertical infraumbilical incision was made with a 15 blade. We carried downthrough the subcutaneous tissue with blunt dissection. The fascia was encounter in size. No adhesions were noted. A 12 mm Zhao trocar was introduced and the abdomen was insufflated to 15 mm mercuryof CO2. Three 5 mm trocars were placed. One in the epigastrium and 2 in the right upper quadrant. The gallbladder was identified. It was grasped and retracted upwards. A 2nd grasper was used to retract the infundibulum laterally. The fiberofatty connective tissue was cleared away from the cystic artery and cystic duct. A critical view of safety was obtained. These structures were clipped and divided with 2 clips on the stay side and 1 on the specimen side. The gallbladder was removed from the underside of the liver with the hook cautery. It was placed in endobag and removed through the umbilical port site. There is no evidence of bleeding or bile leak at the conclusion of the operation. Theumbilical port site was closed with [id number] 0 Vicryl. The skin incisions closed with 4 0 Monocryl. Complications: None Condition on Discharge from the operating room was stable Lan Nash MD Date: 05/18/2017 Time: 4:02 PM TEACHING ATTESTATION : I was present and directly participated in the entire procedure (including opening and closing). PAD CUTTER * Plan of Care - Madisyn Castaneda RN - 05/17/2017 2:11 PM CST Lack of Knowledge: ??? Understanding of the prescribed diet will improve Not Progressing Nutritional: ??? Consumption of the prescribed amount of daily calories will improve Not Progressing Sensory: ??? Pain level will decrease Not Progressing Activity: ??? Risk for activity intolerance will decrease Progressing Fluid Volume: ??? Maintenance of adequate hydration will improve Progressing Health Behavior: ??? Understanding of discharge needs will improve Progressing ??? Ability to state signs and symptoms to report to health care provider will improve Progressing Lack of Knowledge: ??? Knowledge of disease or condition will improve Progressing ??? Ability to state and carry out methods to decrease the pain will improve Progressing Nutritional: ??? Nutritional status will be supported Progressing Nutritional: ??? Demonstration of interest in eating will improve Progressing Physical Regulation: ??? Complications related to the disease process, condition or treatment will be avoided or minimized Progressing ??? Ability to maintain clinical measurements within normal limits will improve Progressing Sensory: ??? Ability to identify factors that increase the pain will improve Progressing ??? Ability to notify healthcare provider of pain before it becomes unmanageable or unbearable willimprove Progressing Goals: Clinical Goals for the Shift: improve GI function, manage pain and N/V End of Shift Summary: Patient has been up independent in room ad anuj this shift. Patient had new IVplaced this shift, patients previous iv stopped working. Patient has been medicated as scheduled and as needed this shift. Patient has had complaints of nausea and pain this shift. Patient was seen by Dr. Nash and placed on the schedule for tomorrow. There are currently no orders related to surgery, regarding diet or consent. Patient has been A&O x 4 this shift. The current plan is to continue patients diet of clear liquid diet until new orders are received. The patient lives at home with parents, the discharge plan is for patient to return home with family when medically stable. PAD CUTTER * Plan of Care - Cesar Mcintyre RN - 05/17/2017 3:18 AM CST Activity: ??? Risk for activity intolerance will decrease Progressing Fluid Volume: ??? Maintenance of adequate hydration will improve Progressing Health Behavior: ??? Understanding of discharge needs will improve Progressing ??? Ability to state signs and symptoms to report to health care provider will improve Progressing Lack of Knowledge: ??? Knowledge of disease or condition will improve Progressing ??? Ability to state and carry out methods to decrease the pain will improve Progressing Nutritional: ??? Nutritional status will be supported Progressing Physical Regulation: ??? Complications related to the disease process, condition or treatment will be avoided or minimized Progressing ??? Ability to maintain clinical measurements within normal limits will improve Progressing Sensory: ??? Ability to identify factors that increase the pain will improve Progressing ??? Ability to notify healthcare provider of pain before it becomes unmanageable or unbearable willimprove Progressing ??? Pain level will decrease Progressing Goals: Clinical Goals for the Shift: Improve GI function End of Shift Summary: Patient has had continued complaints of nausea and vomiting and has received prn medication for relief. She has IV fluids infusing and has received IV antibiotics. Pt. Is currently resting in bed with family at bedside. PAD CUTTER * Plan of Care - Anitha Monaco RN - 05/16/2017 6:37 PM CST Activity: ??? Risk for activity intolerance will decrease Progressing Fluid Volume: ??? Maintenance of adequate hydration will improve Progressing Health Behavior: ??? Understanding of discharge needs will improve Progressing ??? Ability to state signs and symptoms to report to health care provider will improve Progressing Lack of Knowledge: ??? Knowledge of disease or condition will improve Progressing ??? Ability to state and carry out methods to decrease the pain will improve Progressing Nutritional: ??? Nutritional status will be supported Progressing Physical Regulation: ??? Complications related to the disease process, condition or treatment will be avoided or minimized Progressing ??? Ability to maintain clinical measurements within normal limits will improve Progressing Sensory: ??? Ability to identify factors that increase the pain will improve Progressing ??? Ability to notify healthcare provider of pain before it becomes unmanageable or unbearable willimprove Progressing ??? Pain level will decrease Progressing Goals: Clinical Goals for the Shift: Improve GI Function End of Shift Summary: A&O, c/o pain, prn pain med given. Pt. had c/o feeling nauseated and vomited x2. Prn med given. Hepatobiliary imaging done today. Diet advanced to clear liquid, pt. tolerated well. Family is here visiting. IVFs cont. @75ml/hr. IV abx given as scheduled. PAD CUTTER * Plan of Care - Cesar Mcintyre RN - 05/16/2017 3:38 AM CST Activity: ??? Risk for activity intolerance will decrease Progressing Fluid Volume: ??? Maintenance of adequate hydration will improve Progressing Health Behavior: ??? Understanding of discharge needs will improve Progressing ??? Ability to state signs and symptoms to report to health care provider will improve Progressing Lack of Knowledge: ??? Knowledge of disease or condition will improve Progressing ??? Ability to state and carry out methods to decrease the pain will improve Progressing Nutritional: ??? Nutritional status will be supported Progressing Physical Regulation: ??? Complications related to the disease process, condition or treatment will be avoided or minimized Progressing ??? Ability to maintain clinical measurements within normal limits will improve Progressing Sensory: ??? Ability to identify factors that increase the pain will improve Progressing ??? Ability to notify healthcare provider of pain before it becomes unmanageable or unbearable willimprove Progressing ??? Pain level will decrease Progressing Goals: Clinical Goals for the Shift: Improve GI Function End of Shift Summary: Pt. Has had complaints of Nausea, Vomiting, and pain that was relieved by prnmedication. She is currently NPO and has received KATHRIN bath for US of gallbladder with possible surgery. Pt. Is currently resting with no further complaints. IV antibiotics and fluids infusing. PAD CUTTER documented in this encounter Plan of Treatment Not on file documented as of this encounter Procedures Procedure Name Priority Date/Time Associated Diagnosis Comments LAPAROSCOPIC CHOLECYSTECTOMY 05/18/2017 2:49 PM FELT PAD CUTTER Biliary colic SURGICAL PATHOLOGY Routine 05/18/2017 9: 45 AM FELT PAD CUTTER DISCHARGE LABORATORY CUMULATIVE REPORT 05/18/2017 12:00 AM FELT PAD CUTTER SURGICAL PATHOLOGY 05/18/2017 12 :00 AM FELT PAD CUTTER NM HEPATOBILIARY IMAGING W PHARMACEUTICAL INTERVENTION IP Routine 05/16/2017 3:31 PM FELT PAD CUTTER HCG, URINE, QUALITATIVE Routine 05/16/20 17 12:25 PM FELT PAD CUTTER EGFR Routine 05/16/2017 4:16 AM FELT PAD CUTTER DIFFERENTIAL AUTO Routine 05/16/2017 4:1 6 AM FELT PAD CUTTER CBC WITH AUTO DIFFERENTIAL Routine 05/16/2017 4:16 AM FELT PAD CUTTER COMPREHENSIVE METABOLIC PANEL Routine 05/16/2017 4:16 AM FELT PAD CUTTER US GALLBLADDER IP Routine 05/15/2017 5:51 PM FELT PAD CUTTER EGFR STAT 05/15/2017 5:32 PM FELT PAD CUTTER DIFFERENTIAL AUTO STAT 05/15/2017 5:3 2 PM FELT PAD CUTTER CBC WITH AUTO DIFFERENTIAL STAT 05/15/2017 5:32 PM FELT PAD CUTTER LIPASE STAT 05/15/2017 5:32 PM FELT PAD CUTTER AMYLASE STAT 05/15/2017 5:32 PM FELT PAD CUTTER COMPREHENSIVE METABOLIC PANEL STAT 05/15/2017 5:32 PM FELT PAD CUTTER documented in this encounter Results * Surgical pathology (05/18/2017 9:45 AM FELT PAD CUTTER) 05/18/2017 9:45 AM FELT PAD CUTTER 05/21/2017 9:45 AM FELT PAD CUTTER Narrative 05/22/2017 10:26 AM FELT PAD CUTTER [facility] Department of Pathology [address] [place], [place] [id number] Final Report ?Patient Name: BAILEE DE LOS SANTOS Address: [address] Service: Medical ??[place], [place] ?? Location: [facility] CARE Taken: 05/18/2017 Gender: F Received 05/21/2017 : 2000 (Age: 17) Hospital #: [id number] Accessioned: 05/21/2017 ?? Patient Type: [facility] IP Reported 05/22/2017 Physician(s): Lan Nash M.D. ?? Diagnosis: Gallbladder, laparoscopic cholecystectomy: ? - No pathologic diagnosis ?? Leslye Crow M.D. ??Report Electronically Reviewed and Signed Out By ??Leslye Crow M.D. ??05/22/2017 10:26:38 Specimen(s) Received: A: Gallbladder Microscopic Description: Microscopic examination of the sections submitted from the gallbladder reveal a benign pattern throughout. ??No abnormal pattern or degree inflammation is noted. ??The histomorphology is unremarkable, essentially within normal limits. ??The sections do additionally include a benign lymph node, presumably from around the cystic duct, that also has an unremarkable histologic appearance. Clinical History: Biliary dyskinesia. ??Gallbladder. ??Laparoscopic cholecystectomy. Gross Description: The specimen is received in a formalin filled container labeled with the patient's name and gallbladder . ??It is an intact gallbladder that measures 6.1 cm in length, ranging between 1.5 and 2.2 cm in diameter. ??The serosal surface is mostly smooth and shiny light green color. ??The gallbladder lumen contains a viscous green bile. ??I do not identify any stones either within the gallbladder lumen or separately in the specimen container. ??The mucosa is green in color and I do not identify any mucosal lesions. ??The wall is soft and pliable measuring up to 0.2 cm in thickness. Poultry Buyer sections submitted in one cassette. ??Leslye Crow MD/Courtney Whitfield P.A. Complete report with images are only be viewable in the PDF report The performance characteristics of some immunohistochemical stains, fluorescence in-situ hybridization tests and immunophenotyping by flow cytometry cited in this report (if any) were determined by the Surgical Pathology Department at [facility] as part of an ongoing senior quality analyst program and in compliance with federally mandated [...] characteristics [facility]. ??It has not been cleared or approved by the U. S. Food and Drug Administration. Lan Nash MD LAB PATHOLOGY ORDER SHAE Final Result * SURGICAL PATHOLOGY (05/18/2017 12:00 AM FELT PAD CUTTER) Narrative 05/18/2017 12:00 AM FELT PAD CUTTER Ordered by an unspecified provider. us Historical Provider LAB PATHOLOGY ORDERABLES Final Result * DISCHARGE LABORATORY CUMULATIVE REPORT (05/18/2017 12:00 AM FELT PAD CUTTER) Narrative 05/18/2017 12:00 AM FELT PAD CUTTER Ordered by an unspecified provider. us Historical Provider LAB BLOOD ORDERABLES Farida l Result * NM Hepatobiliary Imaging W Pharmaceutical Intervention (05/16/2017 3:31 PM FELT PAD CUTTER) Anatomical Region Laterality Modality Body N/A Nuclear Medicine Impressions 05/16/2017 5:10 PM FELT PAD CUTTER 1. ??Prompt visualization of activity in bile ducts, gallbladder and small bowel, indicating patency of cystic duct and common bile duct. 2. ??Decreased gallbladder ejection fraction of 31% (normal greater than 35%). Electronically signed by: Xavier Holguin Jr., M.D. Narrative 05/16/2017 5:10 PM FELT PAD CUTTER NM HEPATOBILIARY IMAGING W PHARMACEUTICAL INTERVENTION HISTORY: Right upper quadrant abdominal pain, fever, positive Spangler's sign. ??White blood cell count 11,970 yesterday, but 8610 today.. TECHNIQUE: Anterior images over the right upper quadrant at 1 minute per frame for 60 minutes. ??8 ounces Ensure Enlive orally. ??Additional images at 1 minute per frame for 60 minutes. COMPARISON: Ultrasound gallbladder on 05/15/2017. FINDINGS: Prominent hepatocellular uptake occurred. ??Activity was present in common bile duct by 6 minutes; in small bowel by 9-10 minutes; in gallbladder by 10 minutes. ??Gallbladder activity gradually decreased on the ejection fraction images. ??Gallbladder ejection fraction was calculated to be 31% (normal greater than 35%). Procedure Note Xavier Holguin MD - 05/16/2017 NM HEPATOBILIARY IMAGING W PHARMACEUTICAL INTERVENTION HISTORY: Right upper quadrant abdominal pain, fever, positive Spangler's sign. White blood cell count 11,970 yesterday, but 8610 today.. TECHNIQUE: Anterior images over the right upper quadrant at 1 minute per frame for 60 minutes. 8 ounces Ensure Enlive orally. Additional images at 1 minute per frame for 60 minutes. COMPARISON: Ultrasound gallbladder on 05/15/2017. FINDINGS: Prominent hepatocellular uptake occurred. Activity was present in common bile duct by 6 minutes; in small bowel by 9-10 minutes; in gallbladder by 10 minutes. Gallbladder activity gradually decreased on the ejection fraction images. Gallbladder ejection fraction was calculated to be 31% (normal greater than 35%). IMPRESSION: 1. Prompt visualization of activity in bile ducts, gallbladder and small bowel, indicating patency of cystic duct and common bile duct. 2. Decreased gallbladder ejection fraction of 31% (normal greater than 35%). Electronically signed by: Xavier Holguin Jr., M.D. us Lan Nash MD IM NM PROCEDURES F inal Result * HCG, urine, qualitative (05/16/2017 12:25 PM FELT PAD CUTTER) HCG, ur Negative Negative [facility] Urine 05/16/2017 12:2 5 PM FELT PAD CUTTER 05/16/2017 12:31 PM FELT PAD CUTTER Narrative [facility] - 05/16/2017 12:41 PM FELT PAD CUTTER Nidia Vilchis KNOTTING MACHINE OPERATOR LAB URINE ORDERABLES Final Resul t [facility] ([place]) [facility] Department [place] [address] * eGFR (05/16/2017 4:16 AM FELT PAD CUTTER) eGFR >60 mL/min/1.7 3 m2 [facility] ([place]) Comment: Interpretive Data Reference Interval Normal ?>/= 90 mL/min/1.73m2 Mildly decreased* ? 60 - 89 mL/min/1.73m2 Mildly to moderately decreased ?45 - 59 mL/min/1.73m2 Moderately to severely decreased ??30 - 44 mL/min/1.73m2 Severely decreased ?15 - 29 mL/min/1.73m2 Kidney Failure ?< 15 ??mL/min/1.73m2 *Relative to young adult level If -Mont[place] multiply value by 1.16. Estimated glomerular filtration [...] was last reviewed 2015. Blood specimen (specimen) 05/16/2017 4:16 AM FELT PAD CUTTER 05/16/2017 4:31 AM FELT PAD CUTTER Narrative [facility] ([place]) - 05/16/2017 5:46 AM FELT PAD CUTTER us Nidia Vilchis KNOTTING MACHINE OPERATOR LAB BLOOD ORDERABLES Final Resul t [facility] ([place]) [facility] Department [place] [address] * Differential, auto (05/16/2017 4:16 AM FELT PAD CUTTER) Neutrophil pct 66.7 44.0 - 80.0 % [facility] ([place]) Imm gran pct 0.5 0.0 - 1.0 % [facility]) Lymphocyte pct 25.2 13.0 - 44.0 % [facility]) Monocyte pct 6.4 2.0 - 11.0 % [facility]) Eosinophil pct 0.9 0.0 - 6.0 % [facility]) Basophil pct 0.3 0.0 - 3.0 % [facility] ([place]) Neutrophil abs 5.74 1.60 - 7.00 K/cumm [facility] ([place]) Imm gran abs 0.04 0.00 - 0.20 K/cumm [facility] ([place]) Lymphocyte abs 2.17 0.50 - 4.30 K/cumm [facility] ([place]) Monocyte abs 0.55 0.10 - 1.00 K/cumm [facility]) Eosinophil abs 0.08 0.00 - 0.60 K/cumm [facility]) Basophil abs 0.03 0.00 - 0.30 K/cumm [facility]) Blood specimen (specimen) 05/16/2017 4:16 AM FELT PAD CUTTER 05/16/2017 4:31 AM FELT PAD CUTTER Narrative [facility] ([place]) - 05/16/2017 4:37 AM FELT PAD CUTTER us Nidia Vilchis KNOTTING MACHINE OPERATOR LAB BLOOD ORDERABLES Final Resul t [facility] ([place]) [facility] Department [place] [address] * (ABNORMAL) CBC with auto differential (05/16/2017 4:16 AM FELT PAD CUTTER) WBC 8.61 3.80 - 9.80 K/cumm [facility]) RBC 4.29 3.90 - 5.00 M/cumm [facility]) Hgb 10.9(L) 12.1 - 15.1 g/dL [facility]) Hct 33.9(L) 36.1 - 44.3 % [facility] MCV 79.0(L) 80.0 - 100.0 fL [facility] ([place]) MCH 25.4(L) 26.7 - 33.7 pg [facility]) MCHC 32.2(L) 32.7 - 36.0 g/dL [facility]) RDW CV 14.4 11.5 - 14.6 % [facility] RDW SD 40.8 38.0 - 56.6 fL [facility] Plt 254 140 - 440 K/cumm [facility]) MPV 11.5 8.0 - 12.0 fL [facility]) NRBC 0.0 0.0 - 0.0 % [facility]) NRBC abs 0.00 0.00 - 0.00 K/cumm [facility]) Blood specimen (specimen) 05/16/2017 4:16 AM FELT PAD CUTTER 05/16/2017 4:31 AM FELT PAD CUTTER Narrative [facility] - 05/16/2017 4:37 AM FELT PAD CUTTER us Nidia Vilchis KNOTTING MACHINE OPERATOR LAB BLOOD ORDERABLES Final Resul t [facility] ([place] Department [place] [address] * (ABNORMAL) Comprehensive metabolic panel (05/16/2017 4:16 AM FELT PAD CUTTER) Sodium 139 135 - 145 mmol/L [facility] ([place]) Potassium, pl 4.4 3.3 - 4.9 mmol/L [facility] CO2 27 22 - 32 mmol/L [facility] BUN 11 8 - 25 mg/dL [facility]) Glucose 93 70 [...] interpretive data was last revised 2017. Creatinine 0.65 0.60 - 1.10 mg/dL [facility]) Calcium 8.6 8.5 - 10.3 mg/dL [facility] Chloride 100 97 - 110 mmol/L [facility]) Albumin 3.1(L) 3.5 - 5.0 g/dL [facility] AST 15 10 - 45 Units/L [facility]) ALT 10 7 - 45 Units/L [facility]) Alk phos 97 70 - 260 Units/L [facility]) Bilirubin, total 0.3 0.1 - 1.2 mg/dL [facility] Protein, pl 6.8 6.5 - 8.5 g/dL [facility] Anion gap 12 2 - 15 mmol/L [facility]) Blood specimen (specimen) 05/16/2017 4:16 AM FELT PAD CUTTER 05/16/2017 4:31 AM FELT PAD CUTTER Narrative [facility] ([place]) - 05/16/2017 5:46 AM FELT PAD CUTTER us Nidia Vilchis KNOTTING MACHINE OPERATOR LAB BLOOD ORDERABLES Final Resul t [facility] ([place]) [facility] Department [place] [address] * US Gallbladder (05/15/2017 5:51 PM FELT PAD CUTTER) Anatomical Region Laterality Modality Abdomen N/A Ultrasound Impressions 05/15/2017 6:37 PM FELT PAD CUTTER No gallstones or evidence of acute cholecystitis. Electronically signed by: Guy Roblero M.D. Narrative 05/15/2017 6:37 PM FELT PAD CUTTER EXAM: Abdominal ultrasound limited HISTORY: Right upper quadrant pain. COMPARISON: CT of the abdomen and pelvis from 12/21/2016 FINDINGS: The exam is suboptimal secondary to the patient's large body habitus. The visible pancreas body shows normal echogenicity. The visual portions of the abdominal aorta and IVC are normal. The liver is free of discrete mass or biliary dilation. No gallstone, gallbladder wall thickening, or pericholecystic fluid is noted. The common bile duct is not dilated. No ascites is present. ??Limited views of the right kidney fail to reveal evidence of hydronephrosis or calculus. Procedure Note Guy Roblero MD - 05/15/2017 EXAM: Abdominal ultrasound limited HISTORY: Right upper quadrant pain. COMPARISON: CT of the abdomen and pelvis from 12/21/2016 FINDINGS: The exam is suboptimal secondary to the patient's large body habitus. The visible pancreas body shows normal echogenicity. The visual portions of the abdominal aorta and IVC are normal. The liver is free of discrete mass or biliary dilation. No gallstone, gallbladder wall thickening, or pericholecystic fluid is noted. The common bile duct is not dilated. No ascites is present. Limited views of the right kidney fail to reveal evidence of hydronephrosis or calculus. IMPRESSION: No gallstones or evidence of acute cholecystitis. Electronically signed by: Guy Roblero M.D. us [place] Eyers KNOTTING MACHINE OPERATOR IMG US PROCEDURES Final Result * eGFR (05/15/2017 5:32 PM FELT PAD CUTTER) eGFR >60 mL/min/1.7 3 m2 [facility] ([place]) Comment: Interpretive Data Reference Interval Normal ?>/= 90 mL/min/1.73m2 Mildly decreased* ? 60 - 89 mL/min/1.73m2 Mildly to moderately decreased ?45 - 59 mL/min/1.73m2 Moderately to severely decreased ??30 - 44 mL/min/1.73m2 Severely decreased ?15 - 29 mL/min/1.73m2 Kidney Failure ?< 15 ??mL/min/1.73m2 *Relative to young adult level If -[place]ene[place] multiply value by 1.16. Estimated glomerular filtration [...] was last reviewed 2015. Blood specimen (specimen) 05/15/2017 5:32 PM FELT PAD CUTTER 05/15/2017 5:39 PM FELT PAD CUTTER Narrative [facility] ([place]) - 05/15/2017 5:59 PM FELT PAD CUTTER us Nidia Eyers KNOTTING MACHINE OPERATOR LAB BLOOD ORDERABLES Final Resul t [facility] ([place]) [facility] [email or web address] [place] [address] * (ABNORMAL) Differential, auto (05/15/2017 5:32 PM FELT PAD CUTTER) Neutrophil pct 79.6 44.0 - 80.0 % [facility] ([place]) Imm gran pct 0.4 0.0 - 1.0 % [facility] ([place]) Lymphocyte pct 15.0 13.0 - 44.0 % [facility] ([place]) Monocyte pct 4.1 2.0 - 11.0 % [facility] ([place]) Eosinophil pct 0.6 0.0 - 6.0 % [facility]) Basophil pct 0.3 0.0 - 3.0 % [facility] ([place]) Neutrophil abs 9.53(H) 1.60 - 7.00 K/cumm [facility] ([place]) Imm gran abs 0.05 0.00 - 0.20 K/cumm [facility] ([place]) Lymphocyte abs 1.80 0.50 - 4.30 K/cumm [facility] ([place]) Monocyte abs 0.49 0.10 - 1.00 K/cumm [facility] ([place]) Eosinophil abs 0.07 0.00 - 0.60 K/cumm [facility] ([place]) Basophil abs 0.03 0.00 - 0.30 K/cumm [facility] ([place]) Blood specimen (specimen) 05/15/2017 5:32 PM FELT PAD CUTTER 05/15/2017 5:39 PM FELT PAD CUTTER Narrative [facility] ([place] - 05/15/2017 5:41 PM FELT PAD CUTTER us [place] Eyers KNOTTING MACHINE OPERATOR LAB BLOOD ORDERABLES Final Resul t [facility] ([place] [email or web address] [place] [address] * Lipase (05/15/2017 5:32 PM FELT PAD CUTTER) Lipase 29 10 - 70 Units/L [facility] ([place]) Blood specimen (specimen) 05/15/2017 5:32 PM FELT PAD CUTTER 05/15/2017 5:39 PM FELT PAD CUTTER Narrative [facility] ([place]) - 05/15/2017 5:59 PM FELT PAD CUTTER [facility]OD ORDER[facility]LES Final Resul t Performing Organization Address City/[facility]/ZIP Co de Phone Number [facility] ([place]) 1 [facility] [place] [address] * Amylase (05/15/2017 5:32 PM FELT PAD CUTTER) Amylase 56 30 - 100 Units/L [facility] ([place]) Blood specimen (specimen) 05/15/2017 5:32 PM FELT PAD CUTTER 05/15/2017 5:39 PM FELT PAD CUTTER Narrative [facility] ([place]) - 05/15/2017 5:59 PM FELT PAD CUTTER [facility] [facility] BLOOD ORDERABLES Final Resul t Performing Organization Address [facility] Co de Phone Number MICHEAL ARCHULETA ([place]) 1 [facility] [place] [address] * Comprehensive metabolic panel (05/15/2017 5:32 PM FELT PAD CUTTER) Sodium 142 135 - 145 mmol/L [facility] ([place]) Potassium, pl 4.2 3.3 - 4.9 mmol/L [facility] ([place]) CO2 27 22 - 32 mmol/L [facility] ([place]) BUN 12 8 - 25 mg/dL [facility] ([place]) Glucose 87 70 - 199 mg/dL [facility] ([place]) [...] interpretive data was last revised 2017. Creatinine 0.62 0.60 - 1.10 mg/dL [facility] ([place]) Calcium 8.9 8.5 - 10.3 mg/dL [facility] ([place]) Chloride 100 97 - 110 mmol/L [facility] ([place]) Albumin 3.5 3.5 - 5.0 g/dL [facility] ([place]) AST 16 10 - 45 Units/L [facility] ([place]) ALT 17 7 - 45 Units/L [facility] ([place]) Alk phos 107 70 - 260 Units/L [facility] ([place]) Bilirubin, total 0.2 0.1 - 1.2 mg/dL [facility] ([place]) Protein, pl 7.4 6.5 - 8.5 g/dL [facility] ([place]) Anion gap 15 2 - 15 mmol/L [facility] ([place]) Blood specimen (specimen) 05/15/2017 5:32 PM FELT PAD CUTTER 05/15/2017 5:39 PM FELT PAD CUTTER [facility]ative [facility] - 05/15/2017 5:59 PM FELT PAD CUTTER us Nidia Vilchis 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2 11.5 - 14.6 % [facility] ([place]) RDW SD 40.2 38.0 - 56.6 fL [facility] ([place]) Plt 274 140 - 440 K/cumm [facility] ([place]) MPV 11.5 8.0 - 12.0 fL [facility] ([place] NRBC 0.0 0.0 - 0.0 % [facility] ([place]) NRBC abs 0.00 0.00 - 0.00 K/cumm [facility] ([place] Blood specimen (specimen) 05/15/2017 5:32 PM FELT PAD CUTTER 05/15/2017 5:39 PM FELT PAD CUTTER Narrative [facility] ([place]) - 05/15/2017 5:41 PM FELT PAD CUTTER Nidia Vilchis NP LAB BLOOD ORDERABLES Final Resul t [facility] ([place]) 1 [facility] Department [place] [address] documented in this encounter Visit Diagnoses Diagnosis Biliary dyskinesia- Primary Other specified disorder of gallbladder Epigastric pain Abdominal pain, epigastric Biliary dyskinesia Other specified disorder of gallbladder BMI 45.0-49.9, adult (HCC) documented in this encounter Administered Medications Inactive Administered Medications - up to 3 most recent administrations Medication Order MAR Action Action Date Dose Rate Site cefTRIAXone (ROCEPHIN) IV syringe 1,000 mg 1,000 mg, intravenous, Administer over 4 Minutes, Every 24 hours scheduled, First dose on Sun05/15/17 at 1845, Indications: Abdominal/Pelvic InfectionIndications:Abdominal/ Pelvic Infection Given 05/18/2017 10:05 AM FELT PAD CUTTER 1,000 mg Given 05/17/2017 8:30 AM FELT PAD CUTTER 1,000 mg Given 05/16/2017 9:02 AM FELT PAD CUTTER 1,000 mg diphenhydrAMINE (BENADRYL) injection 25 mg 25 mg, intravenous, Once, On Sun05/15/17 at 1845, For 1 dose, Indications: allergic reactionIndications:allergic reaction Given 05/15/2017 9:35 PM FELT PAD CUTTER 25 mg diphenhydrAMINE (BENADRYL) injection 25 mg 25 mg, intravenous, Nightly PRN, sleep, Starting on Sun05/16/17 at 1637 Given 05/17/2017 9:16 PM FELT PAD CUTTER 25 mg Given 05/16/2017 8:21 PM FELT PAD CUTTER 25 mg fentaNYL (SUBLIMAZE) preservative free injection 25 mcg 25 mcg, intravenous, Every 10 min PRN, 1st line for pain, Starting on Sun05/18/17 at 1606, Phase I, Notify Anesthesiologist if total PACU dose reaches 100 mcg and pain score 5/10 or more., Indications: PainIndications:Pain Given 05/18/2017 4:57 PM FELT PAD CUTTER 25 mcg Given 05/18/2017 4:43 PM FELT PAD CUTTER 25 mcg Given 05/18/2017 4:30 PM FELT PAD CUTTER 25 mcg HYDROcodone-acetaminophen (NORCO) 5-325 mg per tablet 2 tablet 2 tablet, oral, Every 4 hours PRN, 1st line for pain, Starting on Sun05/18/17 at 1609, Indications: PainIndications:Pain Given 05/18/2017 9:06 PM FELT PAD CUTTER 2 tablets metroNIDAZOLE (FLAGYL) premix IVPB in sodium chloride 500 mg 500 mg, intravenous, at 100 mL/hr, Administer over 60 Minutes, Every 8 hours scheduled, First dose on Sun05/15/17 at 2200, Room temperature only, Indications: Abdominal/Pelvic InfectionIndications:Abdominal/P elvic Infection New Bag 05/18/2017 6:12 AM FELT PAD CUTTER 500 mg 100 mL/hr New Bag 05/17/2017 9:16 PM FELT PAD CUTTER 500 mg 100 mL/hr New Bag 05/17/2017 1:40 PM FELT PAD CUTTER 500 mg 100 mL/hr morphine injection 2 mg 2 mg, intravenous, Every 3 hours PRN, 1st line for pain, for pain, Starting on Sun05/15/17 at 1725, Indications: PainIndications:Pain Given 05/18/2017 7:59 PM FELT PAD CUTTER 2 mg Given 05/18/2017 9:17 AM FELT PAD CUTTER 2 mg Given 05/17/2017 8:20 PM FELT PAD CUTTER 2 mg ondansetron (ZOFRAN) 4 mg/2 mL injection - ADS Override Pull Starting on Sun05/18/17 at 1802, For 1 dose, ALEX TREADWELL, ARCHANA: cabinet override ondansetron (ZOFRAN) injection 4 mg 4 mg, intravenous, Every 6 hours PRN, nausea, vomiting, if not tolerating PO, Starting on Sun05/15/17 at 1642, Pre-Op, Indications: Nausea and VomitingIndications:Nausea and Vomiting Given 05/18/2017 7:44 AM FELT PAD CUTTER 4 mg Given 05/17/2017 8:20 PM FELT PAD CUTTER 4 mg Given 05/17/2017 8:30 AM FELT PAD CUTTER 4 mg ondansetron (ZOFRAN) injection 4 mg 4 mg, intravenous, Once as needed, nausea, vomiting, Starting on Sun05/18/17 at 1606, For 1 dose, Phase I, Indications: Nausea and VomitingIndications:Nausea and Vomiting Given 05/18/2017 4:22 PM FELT PAD CUTTER 4 mg ondansetron (ZOFRAN) injection 4 mg 4 mg, intravenous, Every 6 hours PRN, nausea, vomiting, Starting on Sun05/18/17 at 1804, Give IV push over 2-5 minutes Given 05/18/2017 6:08 PM FELT PAD CUTTER 4 mg sodium chloride 0.9% flush 0.5-20 mL 0.5-20 mL, intra-catheter, Every 8 hours scheduled, First dose on Sun05/15/17 at 1745, Pre-Op, Flush volume based on line type and size. , Indications: FlushingIndications:Flushing Given 05/17/2017 1:40 PM FELT PAD CUTTER 10 mL Given 05/16/2017 4:12 PM FELT PAD CUTTER 10 mL sodium chloride 0.9% infusion 75 mL/hr, intravenous, Continuous, Starting on Sun05/15/17 at 1745 New Bag 05/18/2017 2:49 PM FELT PAD CUTTER New Bag 05/18/2017 10:58 AM FELT PAD CUTTER 75 mL/hr 75 mL/hr New Bag 05/17/2017 5:54 AM FELT PAD CUTTER 75 mL/hr 75 mL/hr tc-99m mebrofenin (chelotec) injection 5 millicurie 5 millicurie (rounded from 5.3 millicurie), intravenous, Once in imaging, radiopharmaceutical, Starting on Sun05/16/17 at 1319, For 1 dose, Indications: Diagnostic RadiographyIndications:Diagno stic Radiography Given 05/16/2017 1:15 PM FELT PAD CUTTER 5 millicuries Left Forearm documented in this encounter Active and Recently Administered Medications Times are shown in FELT PAD CUTTER. Scheduled Medication Order 05/16/2017 05/17/2017 05/18/2017 cefTRIAXone (ROCEPHIN) IV syringe 1,000 mg 1,000 mg, intravenous, Administer over 4 Minutes, Every 24 hours scheduled, First dose on Sun05/15/17 at 1845, Indications: Abdominal/Pelvic Infection 0902 (Given - Provider: Anitha Monaco, EBEN) 0830 (Given - Provider: Madisyn Castaneda, RN) 1005 (Given - Provider: Archana Strange, RN)1350 (MAR Hold - Provider: Automatic Transfer Provider - Reason: Patient not available)1609 (MAR Unhold - Provider: Archana Strange, RN) metroNIDAZOLE (FLAGYL) premix IVPB in sodium chloride 500 mg 500 mg, intravenous, at 100 mL/hr, Administer over 60 Minutes, Every 8 hours scheduled, First dose on Sun05/15/17 at 2200, Room temperature only, Indications: Abdominal/Pelvic Infection 0532 (New Bag - Provider: Cesar Mcintyre RN)0629 (Stopped - Provider: Cesar Mcintyre RN)1613 (New Bag - Provider: Anitha Monaco RN)2103 (New Bag - Provider: Cesar Mcintyre RN)2310 (Stopped - Provider: Cesar Mcintyre RN) 0509 (New Bag - Provider: Cesar Mcintyre RN)0553 (Stopped - Provider: Cesar Mcintyre RN)1340 (New Bag - Provider: Madisyn Castaneda, EBEN)2116 (New Bag - Provider: Yanni Andre, EBEN) 0612 (New Bag - Provider: Yanni Andre, EBEN)1350 (MAR Hold - Provider: Automatic Transfer Provider - Reason: Patient not available)1400 (Dose Auto Held - Provider: Automatic Transfer Provider)1609 (MAR Unhold - Provider: Archana Strange RN) sodium chloride 0.9% flush 0.5-20 mL (CANCELED) 0.5-20 mL, intra-catheter, Every 8 hours scheduled, First dose on Sun05/15/17 at 1745, Pre-Op, Flush volume based on line type and size. , Indications: Flushing 0531 (Not Given - Provider: Cesar Mcintyre RN - Reason: Other - Comment: IV fluids infusing)1612 (Given - Provider: Anitha Monaco, EBEN)2208 (Not Given - Provider: Cesar Mcintyre RN - Reason: Other - Comment: IV fluids infusing) 0510 (Not Given - Provider: Cesar Mcintyre RN - Reason: Other - Comment: IV fluids infusing)1340 (Given - Provider: Madisyn Castaneda, EBEN) 0250 (Not Given - Provider: Yanni Andre RN - Reason: Other - Comment: duplicate)0600 (Due)1400 (Not Given - Provider: Archana Strange RN - Reason: Patient not available) Continuous Medication Order 05/16/2017 05/17/2017 05/18/2017 sodium chloride 0.9% infusion 75 mL/hr, intravenous, Continuous, Starting on Sun05/15/17 at 1745 0531 (Stopped - Provider: Cesar Mcintyre RN)0629 (Restarted - Provider: Cesar Mcintyre RN)0914 (New Bag - Provider: Anitha Monaco, EBEN)2016 (Restarted - Provider: Cesar Mcintyre RN)2105 (Stopped - Provider: Cesar Mcintyre RN)2310 (Restarted - Provider: Cesar Mcintyre RN) 0509 (Stopped - Provider: Cesar Mcintyre RN)0554 (New Bag - Provider: Cesar Mcintyre RN) 1058 (New Bag - Provider: Archana Strange RN)1449 (New Bag - Provider: Mario Galindo CRNA)1545 (Stopped - Provider: Mario Galindo CRNA) PRN Medication Order 05/16/2017 05/17/2017 05/18/2017 bupivacaine (MARCAINE) 0.5 % (5 mg/mL) preservative free injection (CANCELED) As needed, Starting on Sun05/18/17 at 1525, Intra-Op 1525 (Given - Provider: Lna Nash MD) diphenhydrAMINE (BENADRYL) injection 25 mg 25 mg, intravenous, Nightly PRN, sleep, Starting on Sun05/16/17 at 1637 202 (Given - Provider: Cesar Mcintyre RN) 2116 (Given - Provider: Yanni Andre, RN) 1350 (MAR Hold - Provider: Automatic Transfer Provider - Reason: Patient not available)1609 (MAR Unhold - Provider: Archana Strange, EBEN) fentaNYL (SUBLIMAZE) preservative free injection 25 mcg (CANCELED) 25 mcg, intravenous, Every 10 min PRN, 1st line for pain, Starting on Sun05/18/17 at 1606, Phase I, Notify Anesthesiologist if total PACU dose reaches 100 mcg and pain score 5/10 or more., Indications: Pain 1630 (Given - Provider: Dulce Rodriguez RN)1643 (Given - Provider: Dulce Rodriguez RN)1657 (Given - Provider: Dulce Rodriguez, EBEN) HYDROcodone-acetaminophen (NORCO) 5-325 mg per tablet 2 tablet 2 tablet, oral, Every 4 hours PRN, 1st line for pain, Starting on Sun05/18/17 at 1609, Indications: Pain 210 (Given - Provider: Shona Ontiveros RN) lidocaine-EPINEPHrine (XYLOCAINE with EPI) 1 %-1:200,000 preservative free injection (CANCELED) As needed, Starting on Sun05/18/17 at 1525, Intra-Op, Indications: Administration of Local Anesthesia 1525 (Given - Provider: Lan Nash MD) morphine injection 2 mg 2 mg, intravenous, Every 3 hours PRN, 1st line for pain, for pain, Starting on Sun05/15/17 at 1725, Indications: Pain 0045 (Given - Provider: Cesar Mcintyre RN)0625 (Given - Provider: Cesar Mcintyre RN)1635 (Given - Provider: Anitha Monaco, EBEN)2104 (Given - Provider: Cesar Mcintyre RN) 0831 (Given - Provider: Madisyn D. Leahey, RN)1141 (Given - Provider: Ameena Duckworth, RN)1532 (Given - Provider: Madisyn Castaneda, RN)2019 (Given - Provider: Yanni Andre, RN) 0917 (Given - Provider: Archana Strange, RN)1350 (MAR Hold - Provider: Automatic Transfer Provider - Reason: Patient not available)1609 (MAR Unhold - Provider: Archana Strange, RN)1959 (Given - Provider: Shona Ontiveros RN) ondansetron (ZOFRAN) injection 4 mg (CANCELED)(Linked Group 1) 4 mg, intravenous, Every 6 hours PRN, nausea, vomiting, if not tolerating PO, Starting on Sun05/15/17 at 1642, Pre-Op, Indications: Nausea and Vomiting 1635 (Given - Provider: Anitha Monaco, EBEN)2309 (Given - Provider: Cesar Mcintyre, EBEN) 0830 (Given - Provider: Madisyn Castaneda, EBEN)2019 (Given - Provider: Yanni Andre, EBEN) 0744 (Given - Provider: Archana Strange, RN) ondansetron (ZOFRAN) injection 4 mg (COMPLETED) 4 mg, intravenous, Once as needed, nausea, vomiting, Starting on Sun05/18/17 at 1606, For 1 dose, Phase I, Indications: Nausea and Vomiting 1622 (Given - Provider: Dulce Rodriguez, RN) ondansetron (ZOFRAN) injection 4 mg 4 mg, intravenous, Every 6 hours PRN, nausea, vomiting, Starting on Sun05/18/17 at 1804, Give IV push over 2-5 minutes 1808 (Given - Provider: Archana Strange, RN) ondansetron ODT (ZOFRAN-ODT) disintegrating tablet 4 mg 4 mg, oral, 4 times daily PRN, nausea, vomiting, Starting on Sun05/18/17 at 1609 sodium chloride (NS) 0.9 % irrigation (CANCELED) As needed, Starting on Sun05/18/17 at 1525, Intra-Op 1525 (Given - Provider: Lan Nash MD) tc-99m mebrofenin (chelotec) injection 5 millicurie (COMPLETED) 5 millicurie (rounded from 5.3 millicurie), intravenous, Once in imaging, radiopharmaceutical, Starting on Sun05/16/17 at 1319, For 1 dose, Indications: Diagnostic Radiography 1315 (Given - Provider: Shona Miller, R-RT) Linked Groups Order Group 1: ondansetron ODT (ZOFRAN-ODT) disintegrating tablet 4 mg (CANCELED) 4 mg, oral, Every 6 hours PRN, nausea, vomiting, Starting on Sun05/15/17 at 1642, Pre-Op, Indications: Nausea and Vomiting Or ondansetron (ZOFRAN) injection 4 mg (CANCELED)Jump to med 4 mg, intravenous, Every 6 hours PRN, nausea, vomiting, if not tolerating PO, Starting on Sun05/15/17 at 1642, Pre-Op, Indications: Nausea and Vomiting documented in this encounter Orders Medications Ordered That Ed ht Not Have Been Administered Count Last Ordered Date First Ordered Date bupivacaine (MARCAINE) 0.5 % (5 mg/mL) preservative free injection 1 05/18/2017 lidocaine-EPINEPHrine (XYLOC JIMMY with EPI) 1 %-1:200,000 preservative free injection 1 05/18/2017 meperidine (DEMEROL) preserv ative free injection 12.5 mg 1 05/18/2017 naloxone (NARCAN) injection 0.04-0.4 mg 1 1 07/19/2016 ondansetron ODT (ZOFRAN-ODT) disintegrating tablet 4 mg 2 05/18/2017 05/15/2017 sodium chloride (NS) 0.9 % irrigation 1 sodium chloride 0.9% flush 0.5-20 mL 1 05/04 Lab Orders Without Results Count Last Ordered D ate First Ordered Date SURGICAL PATHOLOGY 1 05/18/2017 Diet Count Last Ordered Date First Orde red Date ADULT DISCHARGE DIET 1 05/18/2017 Nursing Count Last Ordered Date First Orde red Date DISCHARGE ACTIVITY 2 05/18/2017 DISCHARGE CALL PROVIDER 6 05/18/2017 DISCHARGE DRESSING 3 05/18/2017 VERIFY INFORMED CONSENT 1 05/18/2017 WEIGH PATIENT 1 05/15/2017 Admission Count Last Ordered Date First Orde red Date ASSIGN PATIENT STATUS 1 05/15/2017 Discharge Count Last Ordered Date First Orde red Date DISCHARGE PATIENT 1 05/18/2017 CORE MEASURES Count Last Ordered Date First Ord ered Date REASON FOR NO VTE PROPHYLAXIS AT ADMISSION 1 05/15/2017 documented in this encounter Care Teams 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
--- OUTSIDE RECORDS SUMMARY | 2024-06-13 23:59 | XMS_ITS | Encounter Summary ---
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 - 08/03/2017 2:13 PM [employer] SUPERVISOR Hospital Encounter [facility] Emergency Department [address] [place] [address] Unknown, Notinfile Discharge Disposition: Discharge to home or self care Social History Tobacco Use Types Packs/Day Years Used Date Smoking Tobacco: Never Smokeless Tobacco: Never Comments No Sex and Gender Information Value Date Recorded Sex Assigned at Not on file Legal Sex Female 8:56 PM [employer] SUPERVISOR Gender Identity Not on file Sexual [...] 07/09/2017 8 documented as of this encounter Discharge Disposition Disposition Code Departure Means Destination Discharge to home or self care documented in this encounter Plan of Treatment Not on file documented as of this encounter Procedures Procedure Name Priority Date/Time Associated Diagnosis Comments XR FOOT 3+ VW Routine 08/03/2017 6:11 PM [employer] SUPER[employer]OR XR ANKLE 3+ VW Routine 08/03/2017 6:11 PM [employer] SUPER[employer]OR documented in this encounter Results * XR Ankle 3+ Vw (08/03/2017 6:11 PM [employer] SUPERVISOR) Anatomical Region Laterality Modality N/A Radiographic Heide ging 08/03/2017 6:11 PM [employer] SUPERVISOR Narrative 08/03/2017 7:10 PM [employer] SUPER[employer]OR DAREK MCALLISTER M.D. FINAL REPORT ACC# ??Date Time ??Exam [id number] Aug 03, 2017 12:11:00 80183 Foot Complt. min 3 views L [id number] Aug 03, 2017 12:11:00 [id number] Ankle Complt. min 3 views L EXAMINATION: ??Left foot complete minimum 3 views Left ankle complete minimum 3 views DATE: 08/03/2017. HISTORY: Fall, now with left ankle and foot pain. FINDINGS: 3 views of the left foot and 3 views of the left ankle are provided without comparison. There is swelling about the left ankle. A small left ankle effusion is present. Alignment is anatomic. I do not see a displaced fracture. There is some irregularity along the anterior aspect of the distal tibia, but this may be related to prior injury as there is no definite cortical break. The joint spaces are normal. IMPRESSION: ??1. Soft tissue swelling and small left ankle effusion without evidence of underlying left ankle or foot fracture. Electronically signed by: Darek Mcallister M.D. Requested By: EDWIN CALI M.D. Dictated By: ?? DAREK MCALLISTER M.D. ??on Aug ??2017 ??1:08P This document has been electronically signed by: DAREK MCALLISTER M.D. on Aug ??2 2017 ??1:08P [id number] MCALLISTER M.D. FINAL REPORT Attending: ??UNKNOWN, ??NOTINFILE Requesting: ??VIRAJ, ??EDWIN Requesting Fax: ?? Attending Fax: ?? Attending ID: ??[id number] Requesting ID: ??[id number] Report To 1 ID: ??[id number] ? Report To 1 Name: ??, ?? Report To 1 FAX: ?? NextGen Order #: ?? Procedure Note Miscellaneous, Not In File - 08/03/2017 DAREK MCALLISTER M.D. FINAL REPORT ACC# Date Time Exam [id number] Aug 03, 2017 12:11:00 [id number] Foot Complt. min 3 views L [id number] Aug 03, 2017 12:11:00 [id number] Ankle Complt. min 3 views L EXAMINATION: Left foot complete minimum 3 views Left ankle complete minimum 3 views DATE: 08/03/2017. HISTORY: Fall, now with left ankle and foot pain. FINDINGS: 3 views of the left foot and 3 views of the left ankle are provided without comparison. There is swelling about the left ankle. A small left ankle effusion is present. Alignment is anatomic. I do not see a displaced fracture. There is some irregularity along the anterior aspect of the distal tibia, but this may be related to prior injury as there is no definite cortical break. The joint spaces are normal. IMPRESSION: 1. Soft tissue swelling and small left ankle effusionwithout evidence of underlying left ankle or foot fracture. Electronically signed by: Darek Mcallister M.D. Requested By: EDWIN CALI M.D. Dictated By: DAREK MCALLISTER M.D. on Aug 03 2017 1:08P This document has been electronically signed by: DAREK MCALLISTER M.D. on Aug 03 2017 1:08P [id number] MCALLISTER M.D. FINAL REPORT Attending: UNKNOWN, NOTINFILE Requesting: EDWIN CALI Requesting Fax: Attending Fax: Attending ID: [id number] Requesting ID: [id number] Report To 1 ID: [id number] Report To 1 Name: , Report To 1 FAX: NextGen Order #: [id number] Edwin Cali MD IMG XR PROCEDURES Final Result * XR Foot 3+ Vw (08/03/2017 6:11 PM [employer] SUPER[employer]OR) Anatomical Region Laterality Modality N/A Radiographic Heide ging 08/03/2017 6:11 PM [employer] SUPER[employer]OR Narrative 08/03/2017 7:10 PM [employer]PER[employer]OR DAREK MCALLISTER M.D. FINAL REPORT ACC# ??Date Time ??Exam [id number] Aug 03, 2017 12:11:00 [id number] Foot Complt. min 3 views L [id number] Aug 03, 2017 12:11:00 [id number] Ankle Complt. min 3 views L EXAMINATION: ??Left foot complete minimum 3 views Left ankle complete minimum 3 views DATE: 08/03/2017. HISTORY: Fall, now with left ankle and foot pain. FINDINGS: 3 views of the left foot and 3 views of the left ankle are provided without comparison. There is swelling about the left ankle. A small left ankle effusion is present. Alignment is anatomic. I do not see a displaced fracture. There is some irregularity along the anterior aspect of the distal tibia, but this may be related to prior injury as there is no definite cortical break. The joint spaces are normal. IMPRESSION: ??1. Soft tissue swelling and small left ankle effusion without evidence of underlying left ankle or foot fracture. Electronically signed by: Darek Mcallister M.D. Requested By: EDWIN CALI M.D. Dictated By: ?? DAREK MCALLISTER M.D. ??on Aug ??2 2017 ??1:08P This document has been electronically signed by: DAREK MCALLISTER M.D. on Aug ??2 2018 ??1:08P [id number] MCALLISTER M.D. FINAL REPORT Attending: ??UNKNOWN, ??NOTINFILE Requesting: ??VIRAJ, ??EDWIN Requesting Fax: ?? Attending Fax: ?? Attending ID: ??[id number] Requesting ID: ??[id number] Report To 1 ID: ??[id number] ? Report To 1 Name: ??, ?? Report To 1 FAX: ?? NextGen Order #: ?? Procedure Note Miscellaneous, Not In File - 03/02/2018 DAREK MCALLISTER M.D. FINAL REPORT ACC# Date Time Exam [id number] Aug 03, 2017 12:11:00 08753 Foot Complt. min 3 views L [id number] Aug 03, 2017 12:11:00 [id number] Ankle Complt. min 3 views L EXAMINATION: Left foot complete minimum 3 views Left ankle complete minimum 3 views DATE: 08/03/2017. HISTORY: Fall, now with left ankle and foot pain. FINDINGS: 3 views of the left foot and 3 views of the left ankle are provided without comparison. There is swelling about the left ankle. A small left ankle effusion is present. Alignment is anatomic. I do not see a displaced fracture. There is some irregularity along the anterior aspect of the distal tibia, but this may be related to prior injury as there is no definite cortical break. The joint spaces are normal. IMPRESSION: 1. Soft tissue swelling and small left ankle effusionwithout evidence of underlying left ankle or foot fracture. Electronically signed by: Darek Mcallister M.D. Requested By: EDWIN CALI M.D. Dictated By: DAREK MCALLISTER M.D. on Aug 03 2017 1:08P This document has been electronically signed by: DAREK MCALLISTER M.D. on Aug 03 2017 1:08P [id number] MCALLISTER M.D. FINAL REPORT Attending: UNKNOWN, NOTINFILE Requesting: EDWIN CALI Requesting Fax: Attending Fax: Attending ID: [id number] Requesting ID: [id number] Report To 1 ID: [id number] Report To 1 Name: , Report To 1 FAX: NextGen Order #: us Edwin Cali MD IMG XR PROCEDURES Final Result documented in this encounter Visit Diagnoses Not on filedocumented in this encounter Care Teams Can Patcher Relationship Specialty Start Date End Date Miscellaneous, Not In File PCP - General 02/15/17 No, Physician 01/10/17 documented as of this encounter
--- OUTSIDE RECORDS SUMMARY | 2024-06-13 23:59 | XMS_ITS | Encounter Summary ---
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 60 - 89 mL/min/1.73m2 Mildly to moderately decreased ?45 - 59 mL/min/1.73m2 Moderately to severely decreased ??30 - 44 mL/min/1.73m2 Severely decreased ?15 - 29 mL/min/1.73m2 Kidney Failure ?< 15 ??mL/min/1.73m2 *Relative to young adult level If -Mal[place] multiply value by 1.16. Estimated glomerular filtration [...] was last reviewed 2015. Blood specimen (specimen) 09/06/2016 8:54 PM CDT 09/06/2016 8:57 PM CDT us Jerry Cee MD LAB BLOOD ORDERABLES Final Re sult MIC[facility]AL [facility]) [address] [facility] Department [place] [address] documented in this encounter Visit Diagnoses Not on filedocumented in this encounter
--- OUTSIDE RECORDS SUMMARY | 2024-06-13 23:59 | XMS_ITS | Encounter Summary ---
Author Organization [facility] Healthcare Address [address] [place] [address] Care Team Providers Care Braker Passenger Train Name Role Phone Unavailable Primary Care Provider Unavailabl e Encounter Details Date Type Department Care Team ([facility] st Contact Info) Description 09/06/2016 Orders Only [facility] [phone] Jerry Cee MD [address] [place] [address] [address] [place] [address] Social History Tobacco Use Types Packs/Day Years Used Date Smoking Tobacco: Never Assessed Comments Unknown Sex and Gender Information Value Date Recorded Sex Assigned at Not on file Legal Sex Female 8:56 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 Gender Identity Not on file Sexual Orientation Not on file documented as of this encounter Plan of Treatment Not on file documented as of this encounter Procedures Procedure Name Priority Date/Time Associated Diagnosis Comments URINALYSIS AND REFLEX TO MICROSCOPIC AND CULTURE STAT 09/06/2016 8:35 PM CDT documented in this encounter Results * (ABNORMAL) Urinalysis reflex to microscopic and culture (09/06/2016 8:35 PM CDT) Color, ur Yellow Yellow [facility] ([place]) Clarity, ur Cloudy(A) Clear [facility] ([place]) Specific gravity, ur 1.029 1.003 - 1.030 [facility] ([place]) Comment:Normal Ranges: 1.003 -1.030 pH, ur 6.5 4.5 - 8.0 [facility] ([place]) Comment:Normal ranges: 4.5-8 .0 Protein, ur ql 30 Negative mg/dL [facility] ([place]) Glucose, ur ql Negative Negative mg/dL [facility] ([place]) Ketones, ur Trace(A) Negative [facility] ([place]) Bilirubin, ur Negative Negative [facility] ([place]) Blood, ur Moderate(A) Negative [facility] ([place]) Urobilinogen, ur 0.2 0.2 - 1.0 EhrUnit/dL [facility] ([place]) Comment:Normal Ranges: 0.2-1 .0 EU/dL Nitrites, ur Negative Negative [facility] ([place]) Leukocyte esterase, ur Negative Negative [facility] ([place]) Urine/Blood 09/06/2016 8:35 PM CDT 09/06/2016 8:40 PM CDT us Jerry Cee MD LAB MICROBIOLOGY - GENERAL OR DERABLES Final Result [facility] ([place]) [facility] Department [place] [address] documented in this encounter Visit Diagnoses Not on filedocumented in this encounter
--- OUTSIDE RECORDS SUMMARY | 2024-06-13 23:59 | XMS_ITS | Encounter Summary ---
Author Organization [facility] Healthcare Address [address] [place] [address] Care Team Providers Care Risk Engineer Name Role Phone No, Physician Unavailable Miscellaneous, Not In File Primary Care Provider Unavailable Encounter Details Date Type Department Care Team (Late st Contact Info) Description 05/15/2017 Orders Only [facility] [address] [place] [id number] Karla Briones, [facility] Social History Tobacco Use Types Packs/Day Years Used Date Smoking Tobacco: Never Smokeless Tobacco: Never Comments Unknown Sex and Gender Information Value Date Recorded Sex Assigned at Not on file 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
--- OUTSIDE RECORDS SUMMARY | 2024-06-13 23:59 | XMS_ITS | Encounter Summary ---
Author Organization [facility] Healthcare Address [address] [place] [address] Care Team Providers Care Mat Packer Name Role Phone Unavailable Primary Care Provider Unavailabl e Encounter Details Date Type Department Care Team (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 Gender Identity Not on file Sexual Orientation Not on file documented as of this encounter Plan of Treatment Not on file documented as of this encounter Procedures Procedure Name Priority Date/Time Associated Diagnosis Comments CBC WITH AUTO DIFFERENTIAL STAT 09/06/2016 8:54 PM CDT documented in this encounter Results * (ABNORMAL) CBC with auto differential (09/06/2016 8:54 PM CDT) WBC 9.67 3.80 - 9.80 K/cumm [facility] ([place]) RBC 4.50 3.90 - 5.00 M/cumm [facility] ([place]) Hgb 11.6(L) 12.1 - 15.1 g/dL [facility] ([place] Hct 35.9(L) 36.1 - 44.3 % [facility] MCV 79.8(L) 80.0 - 100.0 fL [facility] MCH 25.8(L) 26.7 - 33.7 pg [facility] ([place] MCHC 32.3(L) 32.7 - 36.0 g/dL [facility] ([place] RDW CV 15.0(H) 11.5 - 14.6 % [facility] ([place]) Plt 263 140 - 440 K/cumm [facility] ([place]) MPV 11.4 8.0 - 12.0 fL [facility] NRBC 0.0 0.0 - 0.0 % [facility] ([place]) NRBC abs 0.00 0.00 - 0.00 K/cumm [facility] ([place]) Blood specimen (specimen) 09/06/2016 8:54 PM CDT 09/06/2016 8:57 PM CDT us Jerry Cee MD LAB BLOOD ORDERABLES Final Re sult [facility] ([place]) [address] [facility] Department [place] [address] documented in this encounter Visit Diagnoses Not on filedocumented in this encounter
--- OUTSIDE RECORDS SUMMARY | 2024-06-13 23:59 | XMS_ITS | Encounter Summary ---
Author Organization [facility] Healthcare Address [address] [place] [address] Care Team Providers Care Bank Clerk Name Role Phone No, Physician Unavailable No, Physician Primary Care Provider [phone] Reason for Visit * Reason Comments Dizziness Encounter Details Date Type Department Care Team (Late st Contact Info) Description 08/20/2017 5:53 PM CDT - 08/20/2017 8:34 PM CDT Emergency [facility] Emergency Department [address] [place] [id number] Alice Solo Dizziness (Primary Dx); Acute nonintractable headache, unspecified headache type Discharge Disposition: Discharge to home or self care Social History Tobacco Use Types Packs/Day Years Used Date Smoking Tobacco: Never Smokeless Tobacco: Never Comments No Sex and Gender Information Value Date Recorded Sex Assigned at Not on file 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 Gender Identity Not on file Sexual Orientation Not on file documented as of this encounter Last Filed Vital Signs Vital Sign Reading Time Taken Comments Blood Pressure 112/82 08/20/2017 8:00 PM CDT Pulse 103 08/20/2017 6:05 PM CDT Temperature 36.7 ??C (98.1 ??F) 08/20/2017 6:05 PM CD T Respiratory Rate 20 08/20/2017 6:05 PM CDT Oxygen Saturation 100% 08/20/2017 8:00 PM CDT Inhaled Oxygen Concentration - - Weight - - Height - - Body Mass Index - - documented in this encounter Discharge Instructions * Discharge Instructions* Alice Solo MD - 08/20/2017 8:16 PM CDT Please establish care with a primary care doctor. Rest, stay hydrated. Take Ibuprofen and/ or Tylenol for you headache. Seek immediate medical attention if you have new or worsening symptoms, fever, vision changes, faint, or for any other concern. * Attachments The following attachments cannot be sent through Care Everywhere. * Dizziness, Uncertain Cause (Jamaican) documented in this encounter Medications at Time [...] documented in this encounter ED Notes * Alice Solo MD - 08/20/2017 6:24 PM CDT HPI Chief Complaint Patient presents with ??? Dizziness 6:09 PM 08/20/2017 Pt is a 17 y/o female nonsmoker with a history of anemia and obesity who presents to the ED c/o intermittent and gradually worsening frontal headache, specifically between her eyes onset today. She states this headache is the worst of her life. She admits to blurred vision with the headache. Pt does not wear contacts or glasses. Upon waking up this morning, pt states she felt fine and did not have the headache upon waking. She reports eating breakfast. Pt also reports subjective fever, chills, diaphoresis, pain to the lower left chest wall, dizziness, and lightheadedness. She also reports vomiting this morning, but states this is normal for her. She denies any sore throat, ear pain, cough, sinus pressure, SOB, syncope, dysuria, hematuria, frequency, diarrhea, polydipsia, or unexpected weight change. She also denies any thyroid disorder or exposure to sick contacts. Patient History Patient Active Problem List Diagnosis Date Noted ??? Biliary dyskinesia 05/17/2017 ??? BMI 45.0-49.9, adult ([facility]) 05/17/2017 ??? Epigastric pain 05/17/2017 [...] Review of Systems Review of Systems Constitutional: Positive for chills, diaphoresis and fever (subjective). Negative for unexpected weight change. HENT: Negative for ear pain, sinus pressure and sore throat. Eyes: Positive for visual disturbance (blurred vision). Negative for pain. Respiratory: Negative for cough and shortness of breath. Cardiovascular: Negative for chest pain and palpitations. Gastrointestinal: Negative for abdominal pain and vomiting. Endocrine: Negative for polydipsia. Genitourinary: Negative for dysuria, frequency and hematuria. Musculoskeletal: Negative for arthralgias and back pain. +pain to lower left chest wall Skin: Negative for color change and rash. Neurological: Positive for dizziness, light-headedness and headaches. Negative for seizures and syncope. All other systems reviewed and are negative. Physical Exam ED Triage Vitals [08/20/17 1805] Temp Pulse Resp BP SpO2 36.7 ??C (98.1 ??F) 103 20 149/99 100 % Temp src Heart Rate Source Patient Position BP Location FiO2 (%) Temporal -- -- -- -- Physical Exam Constitutional: She appears well-developed. No distress. Morbidly obese female HENT: Head: Normocephalic and atraumatic. Mouth/Throat: Oropharynx is clear and moist and mucous membranes are normal. No tonsillar exudate. Scars to TMs bilaterally with some fluid behind right TM Eyes: Conjunctivae are normal. Neck: Neck supple. Cardiovascular: Normal rate and regular rhythm. No murmur heard. Pulmonary/Chest: Effort normal and breath sounds normal. No respiratory distress. Abdominal: Soft. There is no tenderness. Musculoskeletal: She exhibits no edema. Neurological: She is alert. Skin: Skin is warm and dry. Psychiatric: She has a normal mood and affect. Nursing note and vitals reviewed. ED Course & [facility] ED Course as of Aug 21 2134SunAug 20, 20172009 Updated pt and her family on all labs and radiology. All questions answered at this time. [EO] 1818 Pre-hypertension/Hypertension: The patient has been informed that they may have pre-hypertension or Hypertension based on a blood pressure reading in the Emergency Department. I recommend that the patient call the primary care provider listed on their discharge instructions or a physician of their choice this week to arrange follow up for further evaluation of possible pre- hypertension or Hypertension. BP: 149/99 [EO] ED Course User Index [EO] Divine Chilel Vitals: 08/20/171999 BP: 112/82 Pulse: Resp: Temp: SpO2: 100% Labs Reviewed URINALYSIS AND REFLEX TO MICROSCOPIC AND CULTURE - Abnormal Result Value Color, ur Yellow Clarity, ur Cloudy (*) Specific gravity, ur >1.030 (*) pH, ur 6.5 Protein, ur 30 Glucose, ur Negative Ketones, ur Negative Bilirubin, ur Negative Blood, ur Large (*) Urobilinogen, ur 0.2 Nitrites, ur Negative Leukocyte esterase, ur Negative Narrative: COMPREHENSIVE METABOLIC PANEL - Abnormal Sodium 137 Potassium 3.9 CO2 27 BUN 15 Glucose 105 Creatinine 0.69 Calcium 9.5 Chloride 98 Albumin 3.4 (*) AST 21 ALT 26 Alk phos 127 Bilirubin <0.2 Protein, pl 7.5 Anion Gap 12 Narrative: CBC WITH AUTO DIFFERENTIAL - Abnormal WBC 11.0 (*) RBC 4.59 Hgb 11.1 (*) Hct 35.3 (*) MCV 76.9 (*) MCH 24.2 (*) MCHC 31.4 (*) RDW CV 15.5 (*) RDW SD 42.7 Platelets 273 MPV 11.0 NRBC Abs 0.00 Narrative: DIFFERENTIAL AUTO - Abnormal Neutrophils 69.4 Immature granulocytes 0.5 Lymphocytes 23.5 Monos 5.4 Eosinophils 0.8 Basophils 0.4 Neutrophil absolute 7.65 (*) Immature granulocyte, abs 0.05 Lymphocytes, abs 2.58 Monos, abs 0.59 Eosinophils, abs 0.09 Basophils, abs 0.04 Narrative: HCG, URINE, QUALITATIVE HCG, ur Negative Narrative: TSH Thyroid Stimulating Hormone 2.35 Narrative: EGFR GFR >60 Narrative: CT Head WO Contrast Final Result NORMAL CT HEAD WITHOUT CONTRAST. Electronically signed by: Xavier Holguin Jr., M.D. MDM Dizziness Acute nonintractable headache, unspecified headache type 9:35 PM: Divine Chilel, scribing for and in the presence of Alice Solo*. I electronically signed this note at 9:35 PM on 08/21/2017. I, Alice Solo MD , have personally performed the services described in the documentation , reviewed the documentation, as recorded by the scribe in my presence, and it accurately and completely records my words and actions. Alice Solo MD 08/21/172134 * Hardy Mabry RN - 08/20/2017 6:08 PM CDT Pt presents to ED via EMS with reports of dizziness. Pt states father called EMS when dizziness episode began. * Arianne Briones RN - 08/20/2017 5:53 PM CDT Bed: ED07 Expected date: 08/20/17 Expected time: 5:38 PM Means of arrival: Comments: [email or web address] Arianne Briones RN 08/20/17 1753 documented in this encounter Plan of Treatment Not on file documented as of this encounter Procedures Procedure Name Priority Date/Time Associated Diagnosis Comments CT HEAD WO CONTRAST ED 08/20/2017 6 :58 PM CDT EGFR STAT 08/20/2017 6:32 PM CDT DIFFERENTIAL AUTO STAT 08/20/2017 6:3 2 PM CDT CBC WITH AUTO DIFFERENTIAL STAT 08/20/2017 6:32 PM CDT TSH STAT 08/20/2017 6:32 PM CDT COMPREHENSIVE METABOLIC PANEL STAT 08/20/2017 6:32 PM CDT URINALYSIS AND REFLEX TO MICROSCOPIC AND CULTURE STAT 08/20/2017 6:28 PM CDT HCG, URINE, QUALITATIVE STAT 08/20/2017 6:28 PM CDT DISCHARGE LABORATORY CUMULATIVE REPORT 08/20/2017 12:00 AM CDT documented in this encounter Results * CT Head WO Contrast (08/20/2017 6:58 PM CDT) Anatomical Region Laterality Modality Head and Neck N/A Computed Tomogra phy Impressions 08/20/2017 7:[address] HEAD WITHOUT CONTRAST. Electronically signed by: Xavier Holguin Jr., M.D. Narrative 08/20/2017 7:07 PM CDT PROCEDURE: CT HEAD WO CONTRAST HISTORY: Blurred vision. ??Pain behind both eyes. ??No known trauma. COMPARISON: None. TECHNIQUE: Contiguous noncontrast axial scans were obtained from base of skull to vertex. FINDINGS: Ventricles, basal cisterns and cortical sulci are normal. ??Lucia and white matter densities are normal. ??No mass, hemorrhage, edema or midline shift is seen. ??No abnormal intra-axial or extra-axial fluid collection is identified. ??No pathological intracranial calcification is seen. ??Calvarium and base of skull appear intact. ??Mastoid air cells are well-developed and aerated. ??Visualized portions of paranasal sinuses are clear. Procedure Note Xavier Holguin MD - 08/20/2017 PROCEDURE: CT HEAD WO CONTRAST HISTORY: Blurred vision. Pain behind both eyes. No known trauma. COMPARISON: None. TECHNIQUE: Contiguous noncontrast axial scans were obtained from base of skull to vertex. FINDINGS: Ventricles, basal cisterns and cortical sulci are normal. Lucia and white matter densities are normal. No mass, hemorrhage, edema or midline shift is seen. No abnormal intra-axial or extra-axial fluid collection is identified. No pathological intracranial calcification is seen. Calvarium and base of skull appear intact. Mastoid air cells are well-developed and aerated. Visualized portions of paranasal sinuses are clear. IMPRESSION: NORMAL CT HEAD WITHOUT CONTRAST. Electronically signed by: Xavier Holguin Jr., M.D. Alice Solo [facility] CT PROCEDURES Final Result * eGFR (08/20/2017 6:32 PM CDT) eGFR >60 mL/min/1.7 3 m2 [facility] ([place]) Comment: Interpretive Data Reference Interval Normal ?>/= 90 mL/min/1.73m2 Mildly decreased* ? 60 - 89 mL/min/1.73m2 Mildly to moderately decreased ?45 - 59 mL/min/1.73m2 Moderately to severely decreased ??30 - 44 mL/min/1.73m2 Severely decreased ?15 - 29 mL/min/1.73m2 Kidney Failure ?< 15 ??mL/min/1.73m2 *Relative to young adult level If -Bolivian multiply value by 1.16. Estimated glomerular filtration [...] was last reviewed 2015. Blood specimen (specimen) 08/20/2017 6:32 PM CDT 08/20/2017 6:38 PM CDT Narrative [facility] ([place]) - 08/20/2017 7:34 PM CDT Alice Solo LAB BLOOD ORDERABLES nal Result [facility] ([place]) [facility] Department [place] [address] * (ABNORMAL) Differential, auto (08/20/2017 6:32 PM CDT) Neutrophil pct 69.4 44.0 - 80.0 % [facility] ([place]) Imm gran pct 0.5 0.0 - 1.0 % [facility] ([place]) Lymphocyte pct 23.5 13.0 - 44.0 % [facility] ([place]) Monocyte pct 5.4 2.0 - 11.0 % [facility] ([place]) Eosinophil pct 0.8 0.0 - 6.0 % [facility] ([place]) Basophil pct 0.4 0.0 - 3.0 % [facility] ([place]) Neutrophil abs 7.65(H) 1.60 - 7.00 K/cumm [facility] ([place]) Imm gran abs 0.05 0.00 - 0.20 K/cumm [facility] ([place]) Lymphocyte abs 2.58 0.50 - 4.30 K/cumm [facility] ([place]) Monocyte abs 0.59 0.10 - 1.00 K/cumm [facility] ([place]) Eosinophil abs 0.09 0.00 - 0.60 K/cumm [facility] ([place]) Basophil abs 0.04 0.00 - 0.30 K/cumm [facility] ([place]) Blood specimen (specimen) 08/20/2017 6:32 PM CDT 08/20/2017 6:38 PM CDT Narrative [facility] ([place]) - 08/20/2017 6:41 PM CDT [facility] LAB BLOOD ORDERABLES Fi nal Result [facility] ([place]) [address] [place] [address] [place] [address] * TSH (08/20/2017 6:32 PM CDT) [facility] Thyroid Stimulating Hormone 2.35 0.30 - 5.00 mcIUnit/mL [facility] ([place]) Blood specimen (specimen) 08/20/2017 6:32 PM CDT 08/20/2017 6:38 PM CDT Narrative [facility] ([place]) - 08/20/2017 7:35 PM CDT [facility] LAB BLOOD ORDERABLES Fi nal Result [facility] ([place]) [address] [place] [address] [place] [address] * (ABNORMAL) CBC with auto differential (08/20/2017 6:32 PM CDT) Pathologist [facility] WBC 11.0(H) 3.8 - 9.9 K/cumm [facility] ([place]) RBC 4.59 3.90 - 5.20 M/cumm [facility] ([place]) Hgb 11.1(L) 11.9 - 15.5 g/dL [facility] ([place]) Hct 35.3(L) 35.6 - 45.5 % [facility] ([place]) MCV 76.9(L) 81.3 - 96.4 fL [facility] ([place]) MCH 24.2(L) 27.1 - 33.3 pg [facility] ([place]) MCHC 31.4(L) 32.3 - 35.7 g/dL [facility] ([place]) RDW CV 15.5(H) 11.1 - 14.9 % [facility] ([place]) RDW SD 42.7 35.7 - 48.1 fL [facility] ([place]) Plt 273 150 - 400 K/cumm [facility] ([place]) MPV 11.0 9.1 - 12.3 fL [facility] ([place]) NRBC abs 0.00 0.00 - 0.01 K/cumm [facility] ([place]) Blood specimen (specimen) 08/20/2017 6:32 PM CDT 08/20/2017 6:38 PM CDT Narrative [facility] ([place]) - 08/20/2017 6:41 PM CDT Alice Solo LAB BLOOD ORDERABLES nal Result [facility] ([place]) [facility] Department [place] [address] * (ABNORMAL) Comprehensive metabolic panel (08/20/2017 6:32 PM CDT) Sodium 137 135 - 145 mmol/L [facility] ([place]) Potassium, pl 3.9 3.3 - 4.9 mmol/L [facility] ([place]) CO2 27 22 - 32 mmol/L [facility] ([place]) BUN 15 8 - 25 mg/dL [facility] ([place]) Glucose 105 70 [...] interpretive data was last revised 2017. Creatinine 0.69 0.60 - 1.10 mg/dL [facility] ([place]) Calcium 9.5 8.5 - 10.3 mg/dL [facility] ([place]) Chloride 98 97 - 110 mmol/L [facility] ([place]) Albumin 3.4(L) 3.5 - 5.0 g/dL [facility] ([place]) AST 21 10 - 45 Units/L [facility] ([place]) ALT 26 7 - 45 Units/L [facility] ([place]) Alk phos 127 70 - 260 Units/L [facility] ([place]) Bilirubin, total <0.2 0.1 - 1.2 mg/dL [facility] ([place]) Protein, pl 7.5 6.5 - 8.5 g/dL [facility] ([place]) Anion gap 12 2 - 15 mmol/L [facility] ([place]) Blood specimen (specimen) 08/20/2017 6:32 PM CDT 08/20/2017 6:38 PM CDT Narrative [facility] ([place]) - 08/20/2017 7:34 PM CDT Alice Solo LAB BLOOD ORDERABLES Fi nal Result [facility] ([place]) [facility] Department [place] [address] * HCG, urine, qualitative (08/20/2017 6:28 PM CDT) HCG, ur Negative Negative [facility] ([place]) Urine 08/20/2017 6:28 PM CDT 08/20/2017 6:32 PM CDT Narrative [facility] ([place]) - 08/20/2017 6:53 PM CDT [facility] LAB URINE ORDERABLES Fi nal Result [facility] ([place]) [facility] Department [place] [address] * (ABNORMAL) Urinalysis reflex to microscopic and culture (08/20/2017 6:28 PM CDT) Color, ur Yellow Yellow [facility] ([place]) Clarity, ur Cloudy(A) Clear [facility] ([place]) Specific gravity, ur >1.030(A) 1.003 - 1.030 [facility] ([place]) Comment:Normal Ranges: 1.003 -1.030 pH, ur 6.5 4.5 - 8.0 [facility] ([place]) Comment:Normal ranges: 4.5-8 .0 Protein, ur ql 30 Negative mg/dL [facility] ([place]) Glucose, ur ql Negative Negative mg/dL [facility] ([place]) Ketones, ur Negative Negative [facility] ([place]) Bilirubin, ur Negative Negative [facility] ([place]) Blood, ur Large(A) Negative [facility] ([place]) Urobilinogen, ur 0.2 0.2 - 1.0 EhrUnit/dL [facility] ([place]) Comment:Normal Ranges: 0.2-1 .0 EU/dL Nitrites, ur Negative Negative [facility] ([place]) Leukocyte esterase, ur Negative Negative [facility] ([place]) Urine 08/20/2017 6:28 PM CDT 08/20/2017 6:32 PM CDT Narrative [facility] ([place]) - 08/20/2017 6:37 PM CDT [facility] LAB MICROBIOLOGY - GENE RAL ORDERABLES Final Result [facility] ([place]) [facility] Department [place] [address] * DISCHARGE LABORATORY CUMULATIVE REPORT (08/20/2017 12:00 AM CDT) Narrative 08/20/2017 12:00 AM CDT Ordered by an unspecified provider. us Historical Provider LAB BLOOD ORDERABLES Farida l Result documented in this encounter Visit Diagnoses Diagnosis Dizziness- Primary Dizziness and giddiness Acute nonintractable headache, unspecified headache type documented in this encounter Administered Medications Inactive Administered Medications - up to 3 most recent administrations Medication Order MAR Action Action Date Dose Rate Site acetaminophen (TYLENOL) tablet 1,000 mg 1,000 mg, oral, Once, On Sun08/20/17 at 1830, For 1 dose Given 08/20/2017 6:25 PM CDT 1,000 mg documented in this encounter Active and Recently Administered Medications Times are shown in CDT. Scheduled Medication Order 08/18/2017 08/19/2017 08/20/2017 acetaminophen (TYLENOL) tablet 1,000 mg (COMPLETED) 1,000 mg, oral, Once, On 08/20/17 at 1830, For 1 dose 1825 (Given - Provid er: Hardy Mabry RN - Comment: pt calm and joking.) documented in this encounter Orders Medications Ordered That Ed ht Not Have Been Administered Count Last Ordered Date First Ordered Date acetaminophen (TYLENOL) tablet 1,000 mg 1 0 08/20/2017 documented in this encounter Care Teams Bank Clerk Relationship Specialty Start Date End Date No, Physician PCP - General 08/20/17 08/22/17 No, Physician 01/10/17 documented as of this encounter
--- OUTSIDE RECORDS SUMMARY | 2024-06-13 23:59 | XMS_ITS | Encounter Summary ---
Author Organization [facility] Healthcare Address [address] [place] [address] Care Team Providers Care Bus Driver/Monitor Name Role Phone Unavailable Primary Care Provider Unavailabl e Encounter Details Date Type Department Care Team ([facility] st Contact Info) Description 09/06/2016 8:18 PM CDT - 09/06/2016 11:03 PM CDT Emergency [facility] Emergency Department [address] [place] [address] Jerry Rojo MD 1 [facility] # [place] [address] Discharge Disposition: Discharge to home or self care Social History Tobacco Use Types Packs/Day Years Used Date Smoking Tobacco: Never Assessed Comments Unknown Sex and Gender Information Value Date Recorded Sex Assigned at Not on file 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 Gender Identity Not on file Sexual Orientation Not on file documented as of this encounter Discharge Disposition Disposition Code Departure Means Destination Discharge to home or self care documented in this encounter Plan of Treatment Not on file documented as of this encounter Procedures Procedure Name Priority Date/Time Associated Diagnosis Comments XR CHEST PA LATERAL 2 VIEWS Routine 09/07/2016 2:29 AM CDT documented in this encounter Results * XR Chest Pa Lateral 2 Vw (09/07/2016 2:29 AM CDT) Anatomical Region Laterality Modality Body, Chest N/A Radiographic Heide ging 09/07/2016 2:29 AM CDT Narrative 09/07/2016 2:29 AM CDT XR Chest 2 Views ?[id number] ??Acc#: ??[id number] DATE OF EXAM: ??Apr ??2016 CLINICAL HISTORY: Cough. Chest pain. RESULT: PA and lateral views of the chest with no prior study demonstrates a normal size heart. Lungs are clear. IMPRESSION: NO ACTIVE DISEASE. Interpreting Physician: ??THEO CRUZ M.D. ??Read on: ??Apr ??2016 10:28P Transcribed by: ??TXD ??On: Sep ??2016 ??9:12A Approved Electronically by: ??THEO CRUZ M.D. ??on: ??Apr ??2016 10:32A Attending: ??JERRY ROJO Requesting: ??JERRY ROJO Requesting Fax: ??-- Attending Fax: ??-- Attending ID: ??[id number] Requesting ID: ??[id number] Report To 1 ID: ??[id number] Report To 1 Name: ??JERRY ROJO Report To 1 FAX: ??-- NextGen Order #: ?? Procedure Note Miscellaneous, Notinfile / ProviderTracey MD - 01/12/2017 XR Chest 2 Views [id number] Acc#: [id number] DATE OF EXAM: Sep 06 2016 CLINICAL HISTORY: Cough. Chest pain. RESULT: PA and lateral views of the chest with no prior study demonstrates anormal size heart. Lungs are clear. IMPRESSION: NO ACTIVE DISEASE. Interpreting Physician: THEO CRUZ M.D. Read on: Sep 06 2016 10:28P Transcribed by: TXD On: Sep 07 2016 9:12A Approved Electronically by: THEO CRUZ M.D. on: Sep 07 2016 10:32A Attending: JERRY ROJO Requesting: JERRY ROJO Requesting Fax: -- Attending Fax: -- Attending ID: [id number] Requesting ID: [id number] Report To 1 ID: [id number] Report To 1 Name: JERRY ROJO Report To 1 FAX: -- NextGen Order #: us Not In File Miscellaneous IMG XR PROCEDURES Farida l Result documented in this encounter Visit Diagnoses Not on filedocumented in this encounter
--- OUTSIDE RECORDS SUMMARY | 2024-06-13 23:59 | XMS_ITS | Encounter Summary ---
Author Organization [facility] Healthcare Address [address] [place] [address] Care Team Providers Care Road Contractor Name Role Phone No, Physician Primary Care Provider [phone] Encounter Details Date Type Department Care Team (Late st Contact Info) Description 12/21/2016 10:26 AM CDT - 12/21/2016 11:59 PM CDT Emergency [facility] Emergency Department [address] [place] [address] Discharge Disposition: Discharge to home or self care Social History Tobacco Use Types Packs/Day Years Used Date Smoking Tobacco: Never Assessed Comments Unknown Sex and Gender Information Value Date Recorded Sex Assigned at Not on file 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
--- OUTSIDE RECORDS SUMMARY | 2024-06-13 23:59 | XMS_ITS | Encounter Summary ---
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 300-450 pg/ml ?50-75 Y ? 300-900 pg/ml ?75-160Y ? 300-1800 pg/ml ?Heart Failure Likely: ?? Less than 50Y ?? Greater than 450 pg/ml ?50-75 Y ? Greater than 900 pg/ml ?75-160 Y ?Greater than 1,800 pg/ml ??Renal Failure: ?All Ages ?Greater than 1,200 pg/ml Current interpretive data was last revised on 2014. Blood specimen (specimen) 09/06/2016 8:54 PM CDT 09/06/2016 8:57 PM CDT us Jerry Cee MD LAB BLOOD ORDERABLES Final Re sult [id number] ([place]) 1 [facility] Department [place] [address] documented in this encounter Visit Diagnoses Not on filedocumented in this encounter
--- OUTSIDE RECORDS SUMMARY | 2024-06-13 23:59 | XMS_ITS | Encounter Summary ---
Author Organization [facility] Healthcare Address [address] [place] [address] Care Team Providers Care Market Development Analyst Name Role Phone Unavailable Primary Care Provider Unavailabl e Encounter Details Date Type Department Care Team ([facility] st Contact Info) Description 06/30/2016 5:09 PM MULTIPLE DRUM SANDER - 06/30/2016 8:48 PM MULTIPLE DRUM SANDER Hospital [facility] Belkis Polanco MD [address] [place] [id number] Inflammatory disease of uterine cervix; Female pelvic inflammatory disease; Acute vaginitis; Other specified bacterial agents as the cause of diseases classified elsewhere; Elevated blood pressure reading without diagnosis of hypertension Social History Tobacco Use Types Packs/Day Years Used Date Smoking Tobacco: Never Assessed Comments Unknown Sex and Gender Information Value Date Recorded Sex Assigned at Not on file 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 Gender Identity Not on file Sexual Orientation Not on file documented as of this encounter Plan of Treatment Not on file documented as of this encounter Procedures Procedure Name Priority Date/Time Associated Diagnosis Comments TRICHOMONAS ANTIGEN, CDR Routine 06/30/2016 7:25 PM MULTIPLE DRUM SANDER GENITAL FLUID GONORRHEA RNA SCREEN Routine 06/30/2016 7:25 PM MULTIPLE DRUM SANDER GENITAL FLUID CHLAMYDIA RNA SCREEN Routine 06/30/2016 7:25 PM MULTIPLE DRUM SANDER URINE CHORIONIC GONADOTROPIN (HCG) Routine 06/30/2016 6:55 PM MULTIPLE DRUM SANDER URINALYSIS Routine 06/30/2016 6:55 PM MULTIPLE DRUM SANDER DISCHARGE LABORATORY CUMULATIVE REPORT 06/30/2016 documented in this encounter Results * Genital fluid Gonorrhea RNA screen (06/30/2016 7:25 PM MULTIPLE DRUM SANDER) Gonorrheae (GC) RNA, genital swab Negative Negative CDR HISTORICAL RESULTS Comment: Interpretive Data This test has been developed to maximize the sensitivity of detection of infection while minimizing false positives, with the combined goals of enabling treatment of infection and interrupting the spread of infection, and is intended for medical purposes. Any result should be interpreted together with the clinical presentation and risk assessment, particularly the prevalence of infection in the patient's demographic group. ??Significant discrepancies should be evaluated by additional measures. Current Interpretive Data was last revised on 2015 Genital 06/30/2016 7:25 PM MULTIPLE DRUM SANDER [facility] Provider MD LAB BLOOD ORDERABLES Farida l Result Performing Organization Address [facility] de Phone Number CDR HISTORICAL RESULTS * (ABNORMAL) Genital fluid Chlamydia RNA screen (06/30/2016 7:25 PM MULTIPLE DRUM SANDER) Chlamydia trachomatis, PCR, genital swab Positive( A) Negative CDR HISTORICAL RESULTS Comment: Interpretive Data This test has been developed to maximize the sensitivity of detection of infection while minimizing false positives, with the combined goals of enabling treatment of infection and interrupting the spread of infection, and is intended for medical purposes. Any result should be interpreted together with the clinical presentation and risk assessment, particularly the prevalence of infection in the patient's demographic group. ??Significant discrepancies should be evaluated by additional measures. Current Interpretive Data was last revised on 2015 Genital 06/30/2016 7:25 PM MULTIPLE DRUM SANDER [facility] Provider MD LAB BLOOD ORDERABLES Farida l Result Performing Organization Address City/[facility] Co de Phone Number CDR HISTORICAL RESULTS * Trichomonas antigen (06/30/2016 7:25 PM MULTIPLE DRUM SANDER) Vaginal (Unknown) 06/30/2016 7:25 PM MULTIPLE DRUM SANDER 06/30/2016 7:52 PM MULTIPLE DRUM SANDER Narrative CDR HISTORICAL RESULTS - 06/30/2016 8:00 PM MULTIPLE DRUM SANDER Negative for Trichomonas antigen Historical Provider LAB MICROBIOLOGY - GENERA L ORDERABLES Final Result Performing Organization Address [facility]/ZIP Co de Phone Number CDR HISTORICAL RESULTS * Urine chorionic gonadotropin (HCG) (06/30/2016 6:55 PM MULTIPLE DRUM SANDER) HCG, ur Negative Negative CDR HISTOR ICAL RESULTS Urine 06/30/2016 6:55 PM MULTIPLE DRUM SANDER Historical Provider LAB BLOOD ORDERABLES Farida l Result Performing Organization Address [facility] de Phone Number CDR HISTORICAL RESULTS * (ABNORMAL) Urinalysis (06/30/2016 6:55 PM MULTIPLE DRUM SANDER) Color, ur Yellow Yellow CDR HISTOR ICAL RESULTS Clarity, ur Clear Clear CDR HIST ORICAL RESULTS Specific gravity, ur 1.026 1.003 - 1.030 CDR HISTORICAL RESULTS Comment:Normal Ranges: 1.003 -1.030 pH, ur 6.0 4.5 - 8.0 CDR HISTOR ICAL RESULTS Comment:Normal ranges: 4.5-8 .0 Protein, ur, quant Trace Negative mg/dl CDR HISTORICAL RESULTS Glucose, ur, quant Negative Negative mg/dl CDR HISTORICAL RESULTS Ketones, ur Negative Negative CDR HIST ORICAL RESULTS Bilirubin, ur Negative Negative CDR HI STORICAL RESULTS U Blood Large(A) Negative CDR HISTOR ICAL RESULTS Urobilinogen, quant, ur 1.0 0.2 - 1.0 Drew Units/dl CDR HISTORICAL RESULTS Comment:Normal Ranges: 0.2-1 .0 EU/dL Nitrites, ur Negative Negative CDR HIS TORICAL RESULTS Leukocyte esterase, ur Negative Negative CDR HISTORICAL RESULTS Urine 06/30/2016 6:55 PM MULTIPLE DRUM SANDER Historical Provider LAB BLOOD ORDERABLES Farida l Result Performing Organization Address [facility] Co de Phone Number CDR HISTORICAL RESULTS * DISCHARGE LABORATORY CUMULATIVE REPORT (06/30/2016) Narrative 06/30/2016 Ordered by an unspecified provider. Historical Provider LAB BLOOD ORDERABLES Farida miner Result documented in this encounter Visit Diagnoses Diagnosis Inflammatory disease of uterine cervix Female pelvic inflammatory disease Unspecified inflammatory disease of female pelvic organs and tissues Acute vaginitis Unspecified vaginitis and vulvovaginitis Other specified bacterial agents as the cause of diseases classified elsewhere Elevated blood pressure reading without diagnosis of hypertension documented in this encounter
--- OUTSIDE RECORDS SUMMARY | 2024-06-13 23:59 | XMS_ITS | Encounter Summary ---
Author Organization [facility] Healthcare Address [address] [place] [address] Care Team Providers Care Picture Framer Name Role Phone Unavailable Primary Care Provider Unavailabl e Encounter Details Date Type Department Care Team (Late st Contact Info) Description 02/10/2011 1:06 PM CDT - 02/10/2011 2:35 PM CDT Hospital Encounter [facility] Sagar Roque MD [address] [facility] [address] [place] [address] Sprain of ankle; Overexertion from sudden strenuous movement; Fall from other slipping, tripping, or stumbling Social History Tobacco Use Types Packs/Day Years Used Date Smoking Tobacco: Never Assessed Comments Unknown Sex and Gender Information Value Date Recorded Sex Assigned at Not on file 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
--- OUTSIDE RECORDS SUMMARY | 2024-06-13 23:59 | XMS_ITS | Encounter Summary ---
Author Organization [facility] Healthcare Address [address] [place] [address] Care Team Providers Care Consumer Product Advisor Name Role Phone Unavailable Primary Care Provider Unavailabl e Encounter Details Date Type Department Care Team ([facility] st Contact Info) Description 09/06/2016 Orders Only [facility] Interim [phone] Jerry Cee MD [address] 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 Gender Identity Not on file Sexual Orientation Not on file documented as of this encounter Plan of Treatment Not on file documented as of this encounter Procedures Procedure Name Priority Date/Time Associated Diagnosis Comments HCG, URINE, QUALITATIVE STAT 09/06/2016 8:35 PM CDT documented in this encounter Results * HCG, urine, qualitative (09/06/2016 8:35 PM CDT) HCG, ur Negative Negative [facility] ([place]) Urine/Blood 09/06/2016 8:35 PM CDT 09/06/2016 8:40 PM CDT us Jerry Cee MD LAB URINE ORDERABLES Final Re sult [facility] ([place]) [address] [facility] [place] [address] documented in this encounter Visit Diagnoses Not on filedocumented in this encounter
--- OUTSIDE RECORDS SUMMARY | 2024-06-13 23:59 | XMS_ITS | Encounter Summary ---
Author Organization [facility] Healthcare Address [address] [place] [address] Care Team Providers Care Sales Representative Public Utilities Name Role Phone Unavailable Primary Care Provider Unavailabl e Encounter Details Date Type Department Care Team ([facility] st Contact Info) Description 09/06/2016 Orders Only [facility] Inter[facility] [phone] Jerry Cee MD [address] [place] [address] [address] [place] [address] Social History Tobacco Use Types Packs/Day Years Used Date Smoking Tobacco: Never Assessed Comments Unknown Sex and Gender Information Value Date Recorded Sex Assigned at Not on file 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 Current interpretive data was last revised on 2014. Flu B Negative Negative [facility] ([place]) RECLAMATION WORKER 09/06/2016 10:2 5 PM CDT 09/06/2016 10:26 PM CDT us Jerry Cee MD LAB BODY FLUIDS AND STOOLS OR DERABLES Final Result [facility] [place] [address] [facility] Department [place] [address] documented in this encounter Visit Diagnoses Not on filedocumented in this encounter
--- OUTSIDE RECORDS SUMMARY | 2024-06-13 23:59 | XMS_ITS | Encounter Summary ---
Author Organization [facility] Healthcare Address [address] [place] [address] Care Team Providers Care Kiln Stoker Name Role Phone No, Physician Unavailable Miscellaneous, Not In File Primary Care Provider Unavailable Encounter Details Date Type Department Care Team (Late st Contact Info) Description 02/15/2017 7:13 PM CDT - 02/15/2017 10:31 PM CDT Emergency [facility] Emergency Department [address] [place] [address] Agustin Campos Jr., MD [facility] [place] [address] Discharge Disposition: Discharge to home or self care Social History Tobacco Use Types Packs/Day Years Used Date Smoking Tobacco: Never Assessed Comments Unknown Sex and Gender Information Value Date Recorded Sex Assigned at Not on file 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 Gender Identity Not on file Sexual Orientation Not on file documented as of this encounter Medications at Time of Discharge ondansetron ODT (ZOFRAN-ODT) 4 mg disintegrating tablet DIS ONE T PO Q 8 H PRN N 0 02/15/2017 07/09/2017 documented as of this encounter Discharge Disposition Disposition Code Departure Means Destination Discharge to home or self care documented in this encounter Plan of Treatment Not on file documented as of this encounter Procedures Procedure Name Priority Date/Time Associated Diagnosis Comments ABDOMINAL RADIOGRAPHY, FRONTAL (AP) Routine 02/16/2017 3:02 AM CDT EGFR STAT 02/15/2017 8:28 PM CDT DIFFERENTIAL AUTO STAT 02/15/2017 8:2 8 PM CDT CBC WITH AUTO DIFFERENTIAL STAT 02/15 8:28 PM CDT LIPASE STAT 02/15/2017 8:28 PM CDT AMYLASE STAT 02/15/2017 8:28 PM CDT COMPREHENSIVE METABOLIC PANEL STAT 02/15/2017 8:28 PM CDT URINALYSIS AND REFLEX TO MICROSCOPIC AND CULTURE STAT 02/15/2017 8:16 PM CDT HCG, URINE, QUALITATIVE STAT 02/16/20 17 8:16 PM CDT ELECTROCARDIOGRAPHY (ECG) 02/15/2017 DISCHARGE LABORATORY CUMULATIVE REPORT 02/15/2017 12:00 AM CDT documented in this encounter Results * ABDOMINAL RADIOGRAPHY, FRONTAL (AP) (02/16/2017 3:02 AM CDT) Anatomical Region Laterality Modality N/A Radiographic Heide ging 02/16/2017 3:02 AM CDT Narrative 02/16/2017 3:02 AM CDT XR Abd 1 View - [place] ?[id number] ??Acc#: ??[id number] DATE OF EXAM: ??Feb 15 2017 ?? EXAM: XR Abd 1 View - AP ?[id number] HISTORY: Abdominal Pain. COMPARISON: None FINDINGS: The bowel gas pattern is nonobstructive. ??The colon is distended with gas and stool. ??No pathologic calcifications are seen. ??Free air cannot be excluded on supine views of the abdomen. IMPRESSION: 1. ??Nonobstructive bowel gas pattern Electronically signed by: All Burnett M.D. Interpreting Physician: ??ALL BURNETT M.D. ??Read on: ??Feb 15 2017 10:06P Transcribed by: ??PSC ??On: Feb 15 2017 10:04P Approved Electronically by: ??LEX JasmineALL ??on: ??Feb 15 2017 10:04P Ordering DR: DR AGUSITN CAMPOS Attending DR: DR AGUSTIN CAMPOS Attending: ??DR AGUSTIN CAMPOS Requesting: ??DR AGUSTIN CAMPOS Requesting Fax: ??-- Attending Fax: ??-- Attending ID: ??[id number] Requesting ID: ??[id number] Report To 1 ID: ??[id number] Report To 1 Name: ??DR AGUSTIN CAMPOS Report To 1 FAX: ??-- NextGen Order #: ?? Procedure Note Miscellaneous, Not In File / Provider, MD Tracey - 02/15/2017 XR Abd 1 [place] [id number] Acc#: [id number] DATE OF EXAM: Feb 15 2017 EXAM: XR Abd 1 [place] [id number] HISTORY: Abdominal Pain. COMPARISON: None FINDINGS: The bowel gas pattern is nonobstructive. The colon is distended with gas and stool. No pathologic calcifications are seen. Free air cannot be excluded on supine views of the abdomen. IMPRESSION: 1. Nonobstructive bowel gas pattern Electronically signed by: All Burnett M.D. Interpreting Physician: ALL BURNETT M.D. Read on: Feb 15 2017 10:06P Transcribed by: [facility] On: Feb 15 2017 10:04P Approved Electronically by: ALL BURNETT M.D. on: Feb 15 2017 10:04P Ordering DR: DR AGUSTIN CAMPOS Attending DR: DR AGUSTIN CAMPOS Attending: DR AGUSTIN CAMPOS Requesting: DR AGUSTIN CAMPOS Requesting Fax: -- Attending Fax: -- Attending ID: [id number] Requesting ID: [id number] Report To 1 ID: [id number] Report To 1 Name: DR AGUSTIN CAMPOS Report To 1 FAX: -- NextGen Order #: Agustin Campos Jr., MD IMG XR PROCEDURES Edited Result - Final * eGFR (02/15/2017 8:28 PM CDT) eGFR >60 mL/min/1.7 3 m2 [facility] ([place]) Comment: Interpretive Data Reference Interval Normal ?>/= 90 mL/min/1.73m2 Mildly decreased* ? 60 - 89 mL/min/1.73m2 Mildly to moderately decreased ?45 - 59 mL/min/1.73m2 Moderately to severely decreased ??30 - 44 mL/min/1.73m2 Severely decreased ?15 - 29 mL/min/1.73m2 Kidney Failure ?< 15 ??mL/min/1.73m2 *Relative to young adult level If -Namibian multiply value by 1.16. Estimated glomerular filtration [...] was last reviewed 2015. Blood specimen (specimen) 02/15/2017 8:28 PM CDT 02/15/2017 8:34 PM CDT us Agustin Campos Jr., MD LAB BLOOD ORDERABL ES Final Result [facility] ([place]) [address] [facility] Department [place] [address] * Comprehensive metabolic panel (02/15/2017 8:28 PM CDT) Sodium 142 135 - 145 mmol/L [facility] Potassium 3.8 3.5 - 5.1 mmol/L [facility] Chloride 102 97 - 110 mmol/L [facility] ([place]) CO2 28 22 - 32 mmol/L [facility] ([place] Anion gap 12 8 - 16 mmol/L [facility] Glucose 101 70 - 199 mg/dL [facility] ([place] Comment: Interpretive Data Note:The glucose [...] data was last revised on 2014. BUN 12.2 8.0 - 25.0 mg/dL [facility] ([place]) Creatinine 0.62 0.60 - 1.10 mg/dL [facility] ([place]) BUN/creat ratio 20 10 - 20 [facility] ([place]) Calcium 9.2 8.6 - 10.2 mg/dL [facility] ([place]) Protein, sr 7.8 6.0 - 8.4 g/dL [facility] ([place]) Albumin 3.8 3.6 - 5.0 g/dL [facility] ([place]) Alk phos 99 70 - 260 Units/L [facility] ([place]) ALT 19 5 - 45 Units/L [facility] ([place]) AST 17 10 - 40 Units/L [facility] ([place]) Bilirubin, total <0.2 <=1.2 mg/dL [facility] ([place]) Blood specimen (specimen) 02/15/2017 8:28 PM CDT 02/15/2017 8:34 PM CDT us Agustin Campos Jr., MD LAB BLOOD ORDERABL ES Final Result Performing Organization Address City/[facility]/ZIP Co de Phone Number [facility] ([place]) [address] [facility] [place] [address] * Lipase (02/15/2017 8:28 PM CDT) Lipase 38 10 - 70 Units/L [facility] ([place]) Blood specimen (specimen) 02/15/2017 8:28 PM CDT 02/15/2017 8:34 PM CDT us Agustin Campos Jr., MD LAB BLOOD ORDERABL ES Final Result [facility] ([place] [address] [facility] [place] [address] * Amylase (02/15/2017 8:28 PM CDT) Amylase 67 30 - 100 Units/L [facility] ([place]) Blood specimen (specimen) 02/15/2017 8:28 PM CDT 02/15/2017 8:34 PM CDT Agustin Campos Jr., MD LAB BLOOD ORDERABL ES Final Result [facility] ([place] [address] [facility] Department [place] [address] * (ABNORMAL) Differential, auto (02/15/2017 8:28 PM CDT) Neutrophil pct 66.3 44.0 - 80.0 % [facility] ([place]) Imm gran pct 0.4 0.0 - 1.0 % [facility] ([place]) Lymphocyte pct 25.8 13.0 - 44.0 % [facility] ([place]) Monocyte pct 6.4 2.0 - 11.0 % [facility] ([place]) Eosinophil pct 0.9 0.0 - 6.0 % [facility] ([place]) Basophil pct 0.2 0.0 - 3.0 % [facility] ([place]) Neutrophil abs 7.53(H) 1.60 - 7.00 K/cumm [facility] ([place]) Imm gran abs 0.04 0.00 - 0.20 K/cumm [facility] ([place]) Lymphocyte abs 2.93 0.50 - 4.30 K/cumm [facility] ([place]) Monocyte abs 0.73 0.10 - 1.00 K/cumm [facility] ([place]) Eosinophil abs 0.10 0.00 - 0.60 K/cumm [facility] ([place]) Basophil abs 0.02 0.00 - 0.30 K/cumm [facility] ([place]) Blood specimen (specimen) 02/15/2017 8:28 PM CDT 02/15/2017 8:34 PM CDT us Agustin Campos Jr., MD LAB BLOOD ORDERABL ES Final Result [facility] ([place] [address] [facility] [employer] [place] [address] * (ABNORMAL) CBC with auto differential (02/15/2017 8:28 PM CDT) WBC 11.35(H) 3.80 - 9.80 K/cumm [facility] ([place]) RBC 4.59 3.90 - 5.00 M/cumm [facility] ([place]) Hgb 11.7(L) 12.1 - 15.1 g/dL [facility] ([place]) Hct 36.5 36.1 - 44.3 % [facility] ([place]) MCV 79.5(L) 80.0 - 100.0 fL [facility] ([place]) MCH 25.5(L) 26.7 - 33.7 pg [facility] ([place]) MCHC 32.1(L) 32.7 - 36.0 g/dL [facility] ([place]) RDW CV 14.5 11.5 - 14.6 % [facility] ([place]) Plt 284 140 - 440 K/cumm [facility] ([place]) MPV 11.9 8.0 - 12.0 fL [facility] ([place]) NRBC 0.0 0.0 - 0.0 % [facility] ([place]) NRBC abs 0.00 0.00 - 0.00 K/cumm [facility] ([place]) Blood specimen (specimen) 02/15/2017 8:28 PM CDT 02/15/2017 8:34 PM CDT us Agustin Campos Jr., MD LAB BLOOD ORDERABL ES Final Result [facility] ([place] [address] [facility] [employer] [place] [address] * HCG, urine, qualitative (02/15/2017 8:16 PM CDT) HCG, ur Negative Negative [facility] ([place]) Urine 02/15/2017 8:16 PM CDT 02/15/2017 9:44 PM CDT us Agustin Campos Jr., MD LAB URINE ORDERABL ES Final Result Performing Organization Address [facility] de Phone Number [facility] ([place] [address] [facility] Department [place] [address] * Urinalysis reflex to microscopic and culture (02/15/2017 8:16 PM CDT) Color, ur Yellow Yellow [facility] ([place]) Clarity, ur Clear Clear [facility] ([place]) Specific gravity, ur 1.013 1.003 - 1.030 [facility] ([place]) Comment:Normal Ranges: 1.003 -1.030 pH, ur 6.0 4.5 - 8.0 [facility] ([place]) Comment:Normal ranges: 4.5-8 .0 Protein, ur ql Negative Negative mg/dL [facility] ([place]) Glucose, ur [...] ur Negative Negative [facility] ([place]) Urine 02/15/2017 8:16 PM CDT 02/15/2017 8:20 PM CDT us Agustin Campos Jr., MD LAB MICROBIOLOGY - GENERAL ORDERABLES Final Result Performing Organization Address City/[facility]/ZIP Co de Phone Number [facility] ([place]) [address] [facility] [place] [address] * DISCHARGE LABORATORY CUMULATIVE REPORT (02/15/2017 12:00 AM CDT) Narrative 02/15/2017 12:00 AM CDT Ordered by an unspecified provider. us Historical Provider MD LAB BLOOD ORDERABLES Farida l Result * ELECTROCARDIOGRAPHY (ECG) (02/15/2017) us Provider Scanning ECG ORDERABLES Final Result documented in this encounter Visit Diagnoses Not on filedocumented in this encounter Care Teams Kiln Stoker Relationship Specialty Start Date End Date Miscellaneous, Not In File PCP - General 02/15/17 No, Physician 01/10/17 documented as of this encounter
--- OUTSIDE RECORDS SUMMARY | 2024-06-13 23:59 | XMS_ITS | Encounter Summary ---
Author Organization [facility] Healthcare Address [address] [place] [address] Care Team Providers Care Account Review Specialist Name Role Phone No, Physician Unavailable Oliver-Maryellen Izquierdo MD Primary Care Provider Reason for Visit * Reason Comments Leg Pain Encounter Details Date Type Department Care Team (Late st Contact Info) Description 12/05/2017 11:56 AM CDT - 12/05/2017 1:16 PM CDT Emergency [facility] Emergency Department [address] [place] [id number] Muscle strain of lower leg, right, initial encounter (Primary Dx) Discharge Disposition: Discharge to home or self care Social History Tobacco Use Types Packs/Day Years Used Date Smoking Tobacco: Never Smokeless Tobacco: Never Comments No Sex and Gender Information Value Date Recorded Sex Assigned at Not on file 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 Gender Identity Not on file Sexual Orientation Not on file documented as of this encounter Last Filed Vital Signs Vital Sign Reading Time Taken Comments Blood Pressure 117/82 12/05/2017 12:22 PM CDT Pulse 99 12/05/2017 12:22 PM CDT Temperature 36.6 ??C (97.8 ??F) 12/05/2017 12:22 PM C DT Respiratory Rate 18 12/05/2017 12:22 PM CDT Oxygen Saturation 97% 12/05/2017 12:22 PM CDT Inhaled Oxygen Concentration - - Weight 122.5 kg (270 lb) 12/05/2017 12:22 PM CDT Height 162.6 cm (5' 4 ) 12/05/2017 12:22 PM CDT Body Mass Index 46.35 12/05/2017 12:22 PM CDT documented in this encounter Discharge Instructions * Attachments The following attachments cannot be sent through Care Everywhere. * JEOVANNY Wrap (Guyanese) * Muscle Strain, Extremity (Guyanese) documented in this encounter Medications at Time of Discharge ibuprofen (ADVIL,MOTRIN) 800 mg tablet Take 1 tablet (800 mg total) by mouth 3 (three) times a day. 21 tablet 12/05/2017 09/25/2018 documented as of this encounter Ordered Prescriptions Prescription Sig Dispense Quantity Refills Last Filled Start Date End Date ibuprofen (ADVIL,MOTRIN) 800 mg tablet Take 1 tablet (800 mg total) by mouth 3 (three) times a day. 21 tablet 12/05/2017 09/25/2018 documented in this encounter Discharge Disposition Disposition Code Departure Means Destination Discharge to home or self assisted documented in this encounter ED Notes * Alexandra Quevedo PA - 12/05/2017 1:07 PM CDT HPI Chief Complaint Patient presents with ??? Leg Pain Patient is a 17-year-old female who presents with complaints of right lower leg pain. She states that last night she was going downhill and slid forward with her right leg. She did not notice significant pain initially, and sat down for a few hours. When trying to get up she states that she had pain to the lateral right lower leg. Her pain is worse with ambulation. She denies swelling. She has not taken anything for her pain. Patient History Patient Active Problem List Diagnosis Date Noted ??? Biliary dyskinesia 05/17/2017 ??? BMI 45.0-49.9, adult (CMS/HCC) 05/17/2017 ??? Epigastric pain 05/17/2017 Past Medical [...] Constitutional: Negative. Negative for activity change, appetite change and fever. HENT: Negative. Negative for dental problem, ear discharge, ear pain, facial swelling, postnasal drip, rhinorrhea, sinus pain, sinus pressure, sore throat, tinnitus, trouble swallowing and voice change. Eyes: Negative for photophobia, pain, discharge, redness, itching and visual disturbance. Respiratory: Negative for apnea, cough, choking, chest tightness, shortness of breath, wheezing andstridor. Cardiovascular: Negative for chest pain, palpitations and leg swelling. Gastrointestinal: Negative for abdominal distention, abdominal pain, blood in stool, constipation, diarrhea, nausea and vomiting. Endocrine: Negative for polydipsia and polyuria. Genitourinary: Negative for difficulty urinating, dysuria, flank pain, frequency, hematuria and urgency. Musculoskeletal: Negative for arthralgias, back pain, gait problem, joint swelling, myalgias and neck pain. Skin: Negative for color change, pallor and rash. Allergic/Immunologic: Negative. Neurological: Negative for dizziness, syncope, weakness, light-headedness, numbness and headaches. Hematological: Does not bruise/bleed easily. Psychiatric/Behavioral: Negative for suicidal ideas. Physical Exam ED Triage Vitals [12/05/17 1222] Temp Pulse Resp BP SpO2 36.6 ??C (97.8 ??F) 99 18 117/82 97 % Temp src Heart Rate Source Patient Position BP Location FiO2 (%) Temporal -- -- -- -- Physical Exam Constitutional: She is oriented to person, place, and time. She appears well- developed and well-nourished. No distress. HENT: Head: Normocephalic and atraumatic. Right Ear: External ear normal. Left Ear: External ear normal. Nose: Nose normal. Mouth/Throat: Oropharynx is clear and moist. Eyes: Conjunctivae and EOM are normal. Pupils are equal, round, and reactive to light. Right eye exhibits no discharge. Left eye exhibits no discharge. No scleral icterus. Neck: Normal range of motion. Neck supple. No thyromegaly present. Cardiovascular: Normal rate, regular rhythm, normal heart sounds and intact distal pulses. Exam reveals no gallop and no friction rub. No murmur heard. Pulmonary/Chest: Effort normal and breath sounds normal. No respiratory distress. She has no wheezes. She has no rales. She exhibits no tenderness. Abdominal: Soft. Bowel sounds are normal. She exhibits no distension and no mass. There is no tenderness. There is no rebound and no guarding. Musculoskeletal: Normal range of motion. She exhibits no edema or tenderness. Patient has obfl-hp-[id number] tenderness to the right anterolateral proximal lower leg just distal to the knee. There is no edema, erythema or ecchymosis noted. Pedal pulses are 2+ bilaterally. Patient is neurovascularly intact to lower legs and tips of toes. She is able to wiggle all toes. Lymphadenopathy: She has no cervical adenopathy. Neurological: She is alert and oriented to person, place, and time. No cranial nerve deficit or sensory deficit. Coordination normal. Skin: Skin is warm and dry. Capillary refill takes less than 2 seconds. No rash noted. No erythema.No pallor. Psychiatric: She has a normal mood and affect. Her behavior is normal. [facility] ED Course as of Dec 05 1309 Time: 12/05 1309 Comment: Diagnosis and treatment plan discussed with patient. Patient instructed to follow up with PCP for continued symptoms. All questions answered. Patient instructed to return to ED for new or worsening symptoms. Patient verbalized understanding By: ELSIE Wesley Muscle strain of lower leg, right, initial encounter ELSIE Wesley 12/05/17 1310 Cosigned by Shayne Stratton MD at 12/05/2017 3:46 PM CDT Associated attestation - Shayne Stratton MD - 12/05/2017 3:46 PM CDT ED Attestation Based on the medical record the care appears appropriate. * Melissa Correa RN - 12/05/2017 12:21 PM CDT Pt reports pain to the right anterior lundberg that onset yesterday evening when she slipped on a hill.Sensation and circulation are intact to the right lower extremity. Pt has full ROM with pain.No visual abnormality noted. Pt denies any additional symptoms at this time. documented in this encounter Plan of Treatment Not on file documented as of this encounter Procedures Procedure Name Priority Date/Time Associated Diagnosis Comments XR KNEE RIGHT 4 OR MORE VIEWS IP Routine 12/05/2017 12:48 PM CDT documented in this encounter Results * XR Knee Right 4 or More Views (12/05/2017 12:48 PM CDT) Anatomical Region Laterality Modality Lower Extremities, Knee Right Computed Radiography 12/05/2017 12:5 1 PM CDT Impressions 12/05/2017 12:54 PM CDT NO ACUTE RIGHT KNEE FRACTURE OR DISLOCATION. Electronically signed by: Chris Hutchison M.D. Narrative 12/05/2017 12:54 PM CDT XR KNEE RIGHT 4 OR MORE VIEWS HISTORY: Knee pain. ??Jammed knee going down a hill. COMPARISON: 04/25/2011 Views: 4 FINDINGS: There is no acute fracture, dislocation or significant joint effusion. 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 Procedure Note Chris Hutchison MD - 12/05/2017 XR KNEE RIGHT 4 OR MORE VIEWS HISTORY: Knee pain. Jammed knee going down a hill. COMPARISON: 04/25/2011 Views: 4 FINDINGS: There is no acute fracture, dislocation or significant joint effusion. 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 IMPRESSION: NO ACUTE RIGHT KNEE FRACTURE OR DISLOCATION. Electronically signed by: Chris Hutchison M.D. [facility] XR PROCEDURES Final Result documented in this encounter Visit Diagnoses Diagnosis Muscle strain of lower leg, right, initial encounter- Primary documented in this encounter Administered Medications Inactive Administered Medications - up to 3 most recent administrations Medication Order MAR Action Action Date Dose Rate Site ibuprofen (ADVIL,MOTRIN) tablet 800 mg 800 mg, oral, Once, On Sun12/05/17 at 1219, For 1 dose Given 12/05/2017 12:28 PM CDT 800 mg documented in this encounter Discontinued Medications Medication Sig Discontinue Reason Start Date End Da te cyclobenzaprine (FLEXERIL) 10 mg tabletIndications:Muscle Spasm Take 1 tablet (10 mg total) by mouth 2 (two) times a day as needed for muscle spasms. 07/09/2017 12/05/2017 dicyclomine (BENTYL) 20 mg tablet Take 1 tablet (20 mg total) by mouth 2 (two) times a day. 09/29/2017 12/05/2017 lidocaine-menthol 4-1 % adhesive patch,medicatedIndication s:Minor Skin Wound Pain Apply 1 patch topically 2 (two) times a day as needed (pain). 07/09/2017 12/05/2017 naproxen (NAPROSYN,ALEVE) 500 mg tabletIndications:Pain Take 1 tablet (500 mg total) by mouth 2 (two) times a day as needed for pain. Take with food. 07/09/2017 12/05/2017 ondansetron ODT (ZOFRAN-ODT) 8 mg disintegrating tablet Dissolve 1 tablet oral every 4 hours as needed for nausea or vomiting. 09/29/2017 12/05/2017 documented as of this encounter Active and Recently Administered Medications Times are shown in CDT. Scheduled Medication Order 12/03/2017 12/04/2017 12/05/2017 ibuprofen (ADVIL,MOTRIN) tablet 800 mg (COMPLETED) 800 mg, oral, Once, On Sun12/05/17 at 1219, For 1 dose 1228 (Given - Provid er: Melissa Correa RN) documented in this encounter Orders Medications Ordered That Ed ht Not Have Been Administered Count Last Ordered Date First Ordered Date ibuprofen (ADVIL,MOTRIN) tablet 800 mg 1 Nursing Count Last Ordered Date First Orde red Date APPLY JEOVANNY WRAP 1 12/05/2017 documented in this encounter Care Teams Account Review Specialist Relationship Specialty Start Date End Date Maryellen Hand MD [address] [place] [id number] PCP - General 08/23/17 12/25/17 No, Physician 01/10/17 documented as of this encounter
--- OUTSIDE RECORDS SUMMARY | 2024-06-13 23:59 | XMS_ITS | Encounter Summary ---
Author Organization [facility] Healthcare Address [address] [place] [address] Care Team Providers Care Shag Truck Driver Name Role Phone No, Physician Unavailable No, Physician Primary Care Provider [phone] Encounter Details Date Type Department Care Team (Latest Contact Info) Description 08/20/2017 8:40 PM CDT - 08/20/2017 11:59 PM CDT Hospital Encounter [facility] Discharge Disposition: Discharge to home or self care Social History Tobacco Use Types Packs/Day Years Used Date Smoking Tobacco: Never Smokeless Tobacco: Never Comments No Sex and Gender Information Value Date Recorded Sex Assigned at Not on file 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
--- OUTSIDE RECORDS SUMMARY | 2024-06-13 23:59 | XMS_ITS | Encounter Summary ---
Author Organization [facility] Healthcare Address [address] [place] [address] Care Team Providers Care Electrolytic Etcher Name Role Phone No, Physician Unavailable Miscellaneous, Not In File Primary Care Provider Unavailable Encounter Details Date Type Department Care Team (Late st Contact Info) Description 05/18/2017 3:00 PM PALM GATHERER - 05/18/2017 4:40 PM PALM GATHERER Surgery [facility] Operating Room [address] [place] [address] Lan Nash MD [address] [place] [id number] Laparoscopic Cholecystectomy Surgery Details Date/Time Status Location OR Service Patient Class Case Class Case Type Trauma Case? 05/18/2017 3:00 PM Posted [facility] OPERATING ROOM OR General Surgery Inpatient Elective Panel 1 Procedure LRB Anes Op Region Wound Class Comments Laparoscopic Cholecystectomy N/A General Abdomen Class II - Clean Contaminated Surgeon Surgeon Role Service Panel Lan Nash MD [facility] documented in this encounter Social History Tobacco Use Types Packs/Day Years Used Date Smoking Tobacco: Never Smokeless Tobacco: Never Comments No Sex and Gender Information Value Date Recorded Sex Assigned at Not on file Legal Sex Female 8:56 PM PALM GATHERER Gender Identity Not on file Sexual Orientation Not on file documented as of this encounter Last Filed Vital Signs Vital Sign Reading Time Taken Comments Blood Pressure 141/78 05/18/2017 4:05 PM PALM GATHERER Pulse 89 05/18/2017 4:30 PM PALM GATHERER Temperature 36.7 ??C (98.1 ??F) 05/18/2017 1:51 PM CS T Respiratory Rate 17 05/18/2017 4:30 PM PALM GATHERER Oxygen Saturation 96% 05/18/2017 4:30 PM PALM GATHERER Inhaled Oxygen Concentration - - Weight 127.2 kg (280 lb 6.8 oz) 05/15/2017 4:35 PM PALM GATHERER Height 162.6 cm (5' 4 ) 05/15/2017 4:35 PM PALM GATHERER Body Mass Index 48.13 05/15/2017 4:35 PM PALM GATHERER documented in this encounter Discharge Summaries * Lan Nash MD - 05/18/2017 9:25 PM CST Inpatient Discharge Summary BRIEF OVERVIEW Admitting Provider: Lan Nahs MD Discharge Provider: No att. providers found Primary Care Physician at Discharge: Not In Miscellaneous None Admission Date: 05/15/2017 Discharge Date: 05/18/2017 Primary Discharge Diagnosis: Biliary dyskinesia Secondary Discharge Diagnosis: Biliary dyskinesia BMI 45.0-49.9, adult ([facility]) * No resolved hospital problems. * DETAILS [...] Order Current Status Surgical pathology Collected (05/18/17 0346) Operative Procedures Performed: Procedure(s): Laparoscopic Cholecystectomy Other [...] concerns, please do not hesitate to call [phone] Discharge Medications: Your medication list START taking [...] For pain Outpatient Follow-Up: No future appointments. GATHERER documented in this encounter Discharge Instructions * Discharge Instr - Other Orders* Anu Pelletier RN - 05/18/2017 7:24 PM PALM GATHERER If you have any questions or concerns, please do not hesitate to call [phone] GATHERER * Attachments The following attachments cannot be sent through Care Everywhere. * Oxycodone/Acetaminophen (By mouth) (Micronesian) * Ondansetron (By mouth, Into the mouth) (Micronesian) documented in this encounter Medications at Time [...] in this encounter Progress Notes * Luma Huerta, RD - 05/18/2017 9:[address] FOLLOW UP ASSESSMENT; Ht;5'4 Wt;127.2 KG IBW;55 KG 23 CRUZITO, NO BREAKDOWN NOTED. NO FURTHER LABS TO ASSESS 05/18. FLAGYL, ZOFRAN. PT C/O NAUSEA 05/17. ACTIVE BOWEL SOUNDS 05/17. PT NPO/CLEAR LIQUIDS X 3 DAYS. INCREASE DIET TOLLERATED. INTAKE > 50% OF MEALS BY NEXT ASSESSMENT. GATHERER * Lan Nash MD - 05/17/2017 3:41 [...] We will remove her gallbladder laparoscopically tomorrow GATHERER * Luma Huerta RD - 05/16/2017 10:11 AM CST KAILEY INITIAL ASSESSMENT; Ht;5'4 Wt;127.2 KG IBW;55 KG ALB 3.1, H/H 12.9/33.9(05/16). ROCEPHIN, FLAGYL, ZOFRAN. PT C/O POOR INTAKE. PT IS 233% IBW, 48.1 BMI. PT NPO X < 1 DAY.SLIGHTLY LOW VISCERAL PROTEIN STORES. DIET INCREASE TO MEET NEEDS. FOLLOW DIET, INTAKE, LABS, SKIN. GATHERER documented in this encounter H&P Notes * Lan Nash MD - 05/18/2017 2:12 PM CST I have reviewed the H&P, examined the patient, and endorse the findings as written. Plan of Care : Based on the above findings, I consider summer to be an acceptable risk for : .Procedure(s): Laparoscopic Cholecystectomy. Lan Nash MD. Date: 05/18/2017 Time: 2:12 PM GATHERER Source Note - EyeNidia hahn NP - 05/15/2017 8:02 PM PALM GATHERER History and Physical Subjective Patient is a [...] with diaphoresis. She has been seen in [facility] ER and was sent home with [...] Lan Nash MD at 05/16/2017 8:33 AM PALM GATHERER GATHERER GATHERER * Nidia Vilchis NP - 05/15/2017 8:02 [...] with diaphoresis. She has been seen in [facility] ER and was sent home with [...] Lan Nash MD at 05/16/2017 8:33 AM PALM GATHERER GATHERER GATHERER documented in this encounter Nursing Notes * Shona Ontiveros RN - 05/18/2017 9:41 PM CST Patient discharged home with prescriptions and information packet. Shona Ontiveros RN GATHERER documented in this encounter Miscellaneous Notes * [...] with prescriptions and information. Shona Ontiveros RN GATHERER * Plan of Care - Archana Strange [...] changes. Patient will discharge home when ready. GATHERER * Op Note - Lan Nash MD [...] operation. Theumbilical port site was closed with [id number] 0 Vicryl. The skin incisions closed with 4 0 Monocryl. Complications: None Condition on Discharge from the operating room was stable Lan Nash MD Date: 05/18/2017 Time: 4:02 PM TEACHING ATTESTATION : I was present and directly participated in the entire procedure (including opening and closing). GATHERER * Plan of Care - Madisyn Castaneda [...] return home with family when medically stable. GATHERER * Plan of Care - Cesar Mcintyre [...] resting in bed with family at bedside. GATHERER * Plan of Care - Anitha Monaco [...] cont. @75ml/hr. IV abx given as scheduled. GATHERER * Plan of Care - Cesar Mcintyre [...] further complaints. IV antibiotics and fluids infusing. GATHERER documented in this encounter Plan of Treatment Not on file documented as of this encounter Procedures Procedure Name Priority Date/Time Associated Diagnosis Comments LAPAROSCOPIC CHOLECYSTECTOMY 05/18/2017 2:49 PM PALM GATHERER Biliary colic SURGICAL PATHOLOGY Routine 05/18/2017 9: 45 AM PALM GATHERER DISCHARGE LABORATORY CUMULATIVE REPORT 05/18/2017 12:00 AM PALM GATHERER SURGICAL PATHOLOGY 05/18/2017 12 :00 AM PALM GATHERER NM HEPATOBILIARY IMAGING W PHARMACEUTICAL INTERVENTION IP Routine 05/16/2017 3:31 PM PALM GATHERER HCG, URINE, QUALITATIVE Routine 05/16/20 17 12:25 PM PALM GATHERER EGFR Routine 05/16/2017 4:16 AM PALM GATHERER DIFFERENTIAL AUTO Routine 05/16/2017 4:1 6 AM PALM GATHERER CBC WITH AUTO DIFFERENTIAL Routine 05/16/2017 4:16 AM PALM GATHERER COMPREHENSIVE METABOLIC PANEL Routine 05/16/2017 4:16 AM PALM GATHERER US GALLBLADDER IP Routine 05/15/2017 5:51 PM PALM GATHERER EGFR STAT 05/15/2017 5:32 PM PALM GATHERER DIFFERENTIAL AUTO STAT 05/15/2017 5:3 2 PM PALM GATHERER CBC WITH AUTO DIFFERENTIAL STAT 05/15/2017 5:32 PM PALM GATHERER LIPASE STAT 05/15/2017 5:32 PM PALM GATHERER AMYLASE STAT 05/15/2017 5:32 PM PALM GATHERER COMPREHENSIVE METABOLIC PANEL STAT 05/15/2017 5:32 PM PALM GATHERER documented in this encounter Results * Surgical pathology (05/18/2017 9:45 AM PALM GATHERER) 05/18/2017 9:45 AM PALM GATHERER 05/21/2017 9:45 AM PALM GATHERER Narrative 05/22/2017 10:26 AM PALM GATHERER [facility] Department of Pathology [address] [place] [address] Final Report ?Patient Name: BAILEE DE LOS SANTOS Address: [address] [place] [address] Service: Medical ??[place], [place] ??6 Location: [facility] MED CARE Taken: 05/18/2017 Gender: F Received 05/21/2017 : 2000 (Age: 17) Hospital #: [id number] Accessioned: 05/21/2017 ?? Patient Type: [facility] IP Reported 05/22/2017 Physician(s): Lan Nash M.D. [...] measuring up to 0.2 cm in thickness. Gameplay Engineer sections submitted in one cassette. ??Leslye Crow MD/Tico Sherman. Complete report with images are only be viewable in the PDF report The performance characteristics of some immunohistochemical stains, fluorescence in-situ hybridization tests and immunophenotyping by flow cytometry cited in this report (if any) were determined by the Surgical Pathology Department at [facility] as part of an ongoing clinical quality analyst program and in compliance with [...] characteristics [facility] ??It has not been cleared or approved by the U. S. Food and Drug Administration. Lan Nash MD LAB PATHOLOGY ORDER SHAE Final Result * SURGICAL PATHOLOGY (05/18/2017 12:00 AM PALM GATHERER) Narrative 05/18/2017 12:00 AM PALM GATHERER Ordered by an unspecified provider. Historical Provider LAB PATHOLOGY ORDERABLES Final Result * DISCHARGE LABORATORY CUMULATIVE REPORT (05/18/2017 12:00 AM PALM GATHERER) Narrative 05/18/2017 12:00 AM PALM GATHERER Ordered by an unspecified provider. Historical Provider LAB BLOOD ORDERABLES Farida l Result * NM Hepatobiliary Imaging W Pharmaceutical Intervention (05/16/2017 3:31 PM PALM GATHERER) Anatomical Region Laterality Modality Body N/A Nuclear Medicine Impressions 05/16/2017 5:10 PM PALM GATHERER 1. ??Prompt visualization of activity in bile ducts, gallbladder and small bowel, indicating patency of cystic duct and common bile duct. 2. ??Decreased gallbladder ejection fraction of 31% (normal greater than 35%). Electronically signed by: Xavier Holguin Jr., M.D. Narrative 05/16/2017 5:10 PM PALM GATHERER NM HEPATOBILIARY IMAGING W PHARMACEUTICAL INTERVENTION HISTORY: [...] Electronically signed by: Xavier Holguin Jr., M.D. Lan Nash MD [facility] PROCEDURES F inal Result * HCG, urine, qualitative (05/16/2017 12:25 PM PALM GATHERER) HCG, ur Negative Negative [facility] ([place]) Urine 05/16/2017 12:2 5 PM PALM GATHERER 05/16/2017 12:31 PM PALM GATHERER Narrative [facility] ([place]) - 05/16/2017 12:41 PM PALM GATHERER Nidia Vilchis NP LAB URINE ORDERABLES Final Resul t [facility] ([place]) 1 [facility] [place] [address] * eGFR (05/16/2017 4:16 AM PALM GATHERER) eGFR >60 mL/min/1.7 3 m2 [facility] ([place]) Comment: Interpretive Data Reference Interval Normal ?>/= 90 mL/min/1.73m2 Mildly decreased* ? 60 - 89 mL/min/1.73m2 Mildly to moderately decreased ?45 - 59 mL/min/1.73m2 Moderately to severely decreased ??30 - 44 mL/min/1.73m2 Severely decreased ?15 - 29 mL/min/1.73m2 Kidney Failure ?< 15 ??mL/min/1.73m2 *Relative to young adult level If -Wallisian multiply value by 1.16. Estimated glomerular filtration [...] 2015. Blood specimen (specimen) 05/16/2017 4:16 AM PALM GATHERER 05/16/2017 4:31 AM PALM GATHERER Narrative [facility] ([place]) - 05/16/2017 5:46 AM PALM GATHERER us Nidia Vilchis NP LAB BLOOD ORDERABLES Final Resul t [facility] ([place]) 1 [facility] [place] [address] * Differential, auto (05/16/2017 4:16 AM PALM GATHERER) Neutrophil pct 66.7 44.0 - 80.0 % [facility] ([place]) Imm gran pct 0.5 0.0 - 1.0 % [facility] ([place]) Lymphocyte pct 25.2 13.0 - 44.0 % [facility] ([place]) Monocyte pct 6.4 2.0 - 11.0 % [facility] ([place]) Eosinophil pct 0.9 0.0 - 6.0 % [facility] ([place]) Basophil pct 0.3 0.0 - 3.0 % [facility] ([place]) Neutrophil abs 5.74 1.60 - 7.00 K/cumm [...] ([place]) Blood specimen (specimen) 05/16/2017 4:16 AM PALM GATHERER 05/16/2017 4:31 AM PALM GATHERER Narrative [facility] ([place]) - 05/16/2017 4:37 AM PALM GATHERER us Nidia Vilchis GANDY DANCER LAB BLOOD ORDERABLES Final Resul t [facility] ([place]) 1 [facility] Department [place] [address] * (ABNORMAL) CBC with auto differential (05/16/2017 4:16 AM PALM GATHERER) WBC 8.61 3.80 - 9.80 K/cumm [facility] [...] ([place]) Blood specimen (specimen) 05/16/2017 4:16 AM PALM GATHERER 05/16/2017 4:31 AM PALM GATHERER Narrative [facility] ([place]) - 05/16/2017 4:37 AM PALM GATHERER us Nidia Vilchis NP LAB BLOOD ORDERABLES Final Resul t [facility] ([place]) 1 [facility] Department [place] [address] * (ABNORMAL) Comprehensive metabolic panel (05/16/2017 4:16 AM PALM GATHERER) Sodium 139 135 - 145 mmol/L [facility] ([place] Potassium, pl 4.4 3.3 - 4.9 mmol/L [facility] ([place]) CO2 27 22 - 32 mmol/L [facility] ([place]) BUN 11 8 - 25 mg/dL [facility] ([place]) Glucose 93 70 - 199 mg/dL [facility] ([place]) Comment: Interpretive Data Fasting glucose [...] Alk phos 97 70 - 260 Units/L [facility] ([place]) Bilirubin, total 0.3 0.1 - 1.2 mg/dL [facility] ([place]) Protein, pl 6.8 6.5 - 8.5 g/dL [facility] ([place]) Anion gap 12 2 - 15 mmol/L [facility] ([place]) Blood specimen (specimen) 05/16/2017 4:16 AM PALM GATHERER 05/16/2017 4:31 AM PALM GATHERER Narrative [facility] ([place]) - 05/16/2017 5:46 AM PALM GATHERER us Nidia Eyejovani GANDY DANCER LAB BLOOD ORDERABLES Final Resul t [facility] ([place]) 1 [facility] Department [place] [address] * US Gallbladder (05/15/2017 5:51 PM PALM GATHERER) Anatomical Region Laterality Modality Abdomen N/A Ultrasound Impressions 05/15/2017 6:37 PM PALM GATHERER No gallstones or evidence of acute cholecystitis. Electronically signed by: Guy Roblero M.D. Narrative 05/15/2017 6:37 PM PALM GATHERER EXAM: Abdominal ultrasound limited HISTORY: Right upper [...] Electronically signed by: Guy Roblero M.D. us Hood Eyers GANDY DANCER IMG US PROCEDURES Final Result * eGFR (05/15/2017 5:32 PM PALM GATHERER) eGFR >60 mL/min/1.7 3 m2 [facility] ([place]) Comment: Interpretive Data Reference Interval Normal ?>/= 90 mL/min/1.73m2 Mildly decreased* ? 60 - 89 mL/min/1.73m2 Mildly to moderately decreased ?45 - 59 mL/min/1.73m2 Moderately to severely decreased ??30 - 44 mL/min/1.73m2 Severely decreased ?15 - 29 mL/min/1.73m2 Kidney Failure ?< 15 ??mL/min/1.73m2 *Relative to young adult level If -Wallisian multiply value by 1.16. Estimated glomerular filtration [...] 2015. Blood specimen (specimen) 05/15/2017 5:32 PM PALM GATHERER 05/15/2017 5:39 PM PALM GATHERER Narrative [facility] ([place]) - 05/15/2017 5:59 PM PALM GATHERER us Nidia Vilchis GANDY DANCER LAB BLOOD ORDERABLES Final Resul t [facility] ([place]) 1 [facility] Department [place] [address] * (ABNORMAL) Differential, auto (05/15/2017 5:32 PM PALM GATHERER) Neutrophil pct 79.6 44.0 - 80.0 % [...] ([place]) Blood specimen (specimen) 05/15/2017 5:32 PM PALM GATHERER 05/15/2017 5:39 PM PALM GATHERER Narrative [facility] ([place]) - 05/15/2017 5:41 PM PALM GATHERER us Nidia Eyers GANDY DANCER LAB BLOOD ORDERABLES Final Resul t [facility] ([place]) 1 [facility] [place] [address] * Lipase (05/15/2017 5:32 PM PALM GATHERER) Lipase 29 10 - 70 Units/L [facility] ([place]) Blood specimen (specimen) 05/15/2017 5:32 PM PALM GATHERER 05/15/2017 5:39 PM PALM GATHERER Narrative [facility] ([place]) - 05/15/2017 5:59 PM PALM GATHERER us Hood Eyers GANDY DANCER LAB BLOOD ORDERABLES Final Resul t Performing Organization Address [facility] Co de Phone Number [facility] ([place]) 1 [facility] [place] [address] * Amylase (05/15/2017 5:32 PM PALM GATHERER) Amylase 56 30 - 100 Units/L [facility] ([place]) Blood specimen (specimen) 05/15/2017 5:32 PM PALM GATHERER 05/15/2017 5:39 PM PALM GATHERER Narrative [facility] ([place]) - 05/15/2017 5:59 PM PALM GATHERER us Nidia Eyers GANDY DANCER LAB BLOOD ORDERABLES Final Resul t Performing Organization Address City/[facility]/ZIP Co de Phone Number [facility] ([place]) 1 [facility] [place] [address] * Comprehensive metabolic panel (05/15/2017 5:32 PM PALM GATHERER) Sodium 142 135 - 145 mmol/L [facility] [...] ([place]) Blood specimen (specimen) 05/15/2017 5:32 PM PALM GATHERER 05/15/2017 5:39 PM PALM GATHERER Narrative [facility] ([place]) - 05/15/2017 5:59 PM PALM GATHERER us Nidia Vilchis NP LAB BLOOD ORDERABLES Final Resul t [facility] ([place]) 1 [facility] Department [place] [address] * (ABNORMAL) CBC with auto differential (05/15/2017 5:32 PM PALM GATHERER) WBC 11.97(H) 3.80 - 9.80 K/cumm [facility] ([place]) RBC 4.75 3.90 - 5.00 M/cumm [facility] ([place]) Hgb 11.7(L) 12.1 - 15.1 g/dL [facility] ([place]) Hct 37.5 36.1 - 44.3 % [facility] ([place]) MCV 78.9(L) 80.0 - 100.0 fL [facility] ([place]) MCH 24.6(L) 26.7 - 33.7 pg [facility] ([place]) MCHC 31.2(L) 32.7 - 36.0 g/dL [facility] ([place]) RDW CV 14.2 11.5 - 14.6 % [facility] ([place]) RDW SD 40.2 38.0 - 56.6 fL [facility] ([place]) Plt 274 140 - 440 K/cumm [facility] ([place]) MPV 11.5 8.0 - 12.0 fL [facility] ([place]) NRBC 0.0 0.0 - 0.0 % [facility] ([place]) NRBC abs 0.00 0.00 - 0.00 K/cumm [facility] ([place]) Blood specimen (specimen) 05/15/2017 5:32 PM PALM GATHERER 05/15/2017 5:39 PM PALM GATHERER Narrative [facility] ([place] - 05/15/2017 5:41 PM PALM GATHERER us Nidia Vilchis GANDY DANCER LAB BLOOD ORDERABLES Final Resul t [facility] ([place]) 1 [facility] [place] [address] documented in this encounter Visit Diagnoses Diagnosis Biliary dyskinesia- Primary Other specified disorder of gallbladder Epigastric pain Abdominal pain, epigastric Biliary dyskinesia Other specified disorder of gallbladder BMI 45.0-49.9, adult (HCC) Biliary colic Calculus of gallbladder without mention of cholecystitis or obstruction documented in this encounter Administered Medications Inactive Administered Medications - up to 3 most recent administrations Medication Order MAR Action Action Date Dose Rate Site bupivacaine (MARCAINE) 0.5 % (5 mg/mL) preservative free injection As needed, Starting on Sun05/18/17 at 1525, Intra-Op Given 05/18/2017 3:25 PM PALM GATHERER 5 mL Abdominal Tissue cefTRIAXone (ROCEPHIN) IV syringe 1,000 mg 1,000 mg, intravenous, Administer over 4 Minutes, Every 24 hours scheduled, First dose on Sun05/15/17 at 1845, Indications: Abdominal/Pelvic InfectionIndications:Abdo sher/Pelvic Infection Given 05/18/2017 10:05 AM PALM GATHERER 1,000 mg Given 05/17/2017 8:30 AM PALM GATHERER 1,000 mg Given 05/16/2017 9:02 AM PALM GATHERER 1,000 mg diphenhydrAMINE (BENADRYL) injection 25 mg 25 mg, intravenous, Nightly PRN, sleep, Starting on Sun05/16/17 at 1637 Given 05/17/2017 9:16 PM PALM GATHERER 25 mg Given 05/16/2017 8:21 PM PALM GATHERER 25 mg HYDROcodone-acetaminophen (NORCO) 5-325 mg per tablet 2 tablet 2 tablet, oral, Every 4 hours PRN, 1st line for pain, Starting on Sun05/18/17 at 1609, Indications: PainIndications:Pain Given 05/18/2017 9:06 PM PALM GATHERER 2 tablets lidocaine-EPINEPHrine (XYLOCAINE with EPI) 1 %-1:200,000 preservative free injection As needed, Starting on Sun05/18/17 at 1525, Intra-Op, Indications: Administration of Local AnesthesiaIndications:Administrat ion of Local Anesthesia Given 05/18/2017 3:25 PM PALM GATHERER 5 mL metroNIDAZOLE (FLAGYL) premix IVPB in sodium chloride 500 mg 500 mg, intravenous, at 100 mL/hr, Administer over 60 Minutes, Every 8 hours scheduled, First dose on Sun05/15/17 at 2200, Room temperature only, Indications: Abdominal/Pelvic InfectionIndications:Abdominal/Pe lvic Infection New Bag 05/18/2017 6:12 AM PALM GATHERER 500 mg 100 mL/hr New Bag 05/17/2017 9:16 PM PALM GATHERER 500 mg 100 mL/hr New Bag 05/17/2017 1:40 PM PALM GATHERER 500 mg 100 mL/hr morphine injection 2 mg 2 mg, intravenous, Every 3 hours PRN, 1st line for pain, for pain, Starting on Sun05/15/17 at 1725, Indications: PainIndications:Pain Given 05/18/2017 7:59 PM PALM GATHERER 2 mg Given 05/18/2017 9:17 AM PALM GATHERER 2 mg Given 05/17/2017 8:20 PM PALM GATHERER 2 mg ondansetron (ZOFRAN) injection 4 mg 4 mg, intravenous, Every 6 hours PRN, nausea, vomiting, Starting on Sun05/18/17 at 1804, Give IV push over 2-5 minutes Given 05/18/2017 6:08 PM PALM GATHERER 4 mg sodium chloride (NS) 0.9 % irrigation As needed, Starting on Sun05/18/17 at 1525, Intra-Op Given 05/18/2017 3:25 PM PALM GATHERER 1,000 mL Surgical Site sodium chloride 0.9% infusion 75 mL/hr, intravenous, Continuous, Starting on Sun05/15/17 at 1745 New Bag 05/18/2017 2:49 PM PALM GATHERER New Bag 05/18/2017 10:58 AM PALM GATHERER 75 mL/hr 75 mL/hr New Bag 05/17/2017 5:54 AM PALM GATHERER 75 mL/hr 75 mL/hr documented in this encounter Active and Recently Administered Medications Times are shown in PALM GATHERER. Scheduled Medication Order 05/16/2017 05/17/2017 05/18/2017 cefTRIAXone (ROCEPHIN) IV syringe 1,000 mg 1,000 mg, intravenous, Administer over 4 Minutes, Every 24 hours scheduled, First dose on Sun05/15/17 at 1845, Indications: Abdominal/Pelvic Infection 0902 (Given - Provider: Anitha Monaco, EBEN) 0830 (Given - Provider: Madisyn Castaneda, EBEN) 1005 (Given - Provider: Archana Strange, EBEN)1350 (MAR Hold - Provider: Automatic Transfer Provider - Reason: Patient not available)1609 (MAR Unhold - Provider: Archana Strange, RN) metroNIDAZOLE (FLAGYL) premix IVPB in sodium chloride 500 mg 500 mg, intravenous, at 100 mL/hr, Administer over 60 Minutes, Every 8 hours scheduled, First dose on Sun05/15/17 at 2200, Room temperature only, Indications: Abdominal/Pelvic Infection 0532 (New Bag - Provider: Cesar Mcintyre, EBEN)0629 (Stopped - Provider: Cesar Mcintyre, EBEN)1613 (New Bag - Provider: Anitha Monaco RN)2103 [...] Transfer Provider)1609 (MAR Unhold - Provider: Archana Strange, EBEN) sodium chloride 0.9% flush 0.5-20 mL (CANCELED) [...] duplicate)0600 (Due)1400 (Not Given - Provider: Archana Strange, EBEN - Reason: Patient not available) Continuous Medication Order 05/16/2017 05/17/2017 05/18/2017 sodium chloride 0.9% infusion 75 mL/hr, intravenous, Continuous, Starting on Sun05/15/17 at 1745 0531 (Stopped - Provider: Cesar Mcintyre RN)0629 (Restarted - Provider: Cesar Mcintyre RN)0914 (New Bag - Provider: Anitha Monaco RN)2015 (Restarted - Provider: Cesar Mcintyre RN)2105 (Stopped - Provider: Cesar Mcintyre RN)2310 (Restarted - Provider: Cesar Mcintyre RN) 0509 (Stopped - Provider: Cesar Mcintyre RN)0554 (New Bag - Provider: Cesar Mcintyre RN) 1058 (New Bag - Provider: Archana Strange, RN)1449 (New Bag - Provider: Mario Galindo CRNA)1545 (Stopped - Provider: Mario Galindo CRNA) PRN Medication Order 05/16/2017 05/17/2017 05/18/2017 bupivacaine (MARCAINE) 0.5 % (5 mg/mL) preservative free injection (CANCELED) As needed, Starting on Sun05/18/17 at 1525, Intra-Op 1525 (Given - Provider: Lan Nash MD) diphenhydrAMINE (BENADRYL) injection 25 mg 25 mg, intravenous, Nightly PRN, sleep, Starting on Sun05/16/17 at 1637 202 (Given - Provider: Cesar Mcintyre RN) 2116 (Given - Provider: Yanni Andre RN) 1350 (MAR Hold - Provider: Automatic [...] Indications: Pain 1630 (Given - Provider: Dulce Rodriguez, EBEN)1643 (Given - Provider: Dulce Rodriguez, EBEN)1657 (Given - Provider: Dulce Rodriguez, EBEN) HYDROcodone-acetaminophen (NORCO) 5-325 mg per tablet 2 tablet 2 tablet, oral, Every 4 hours PRN, 1st line for pain, Starting on Sun05/18/17 at 1609, Indications: Pain 2106 (Given - Provider: Shona Ontiveros RN) lidocaine-EPINEPHrine [...] Indications: Pain 0045 (Given - Provider: Cesar Mcintyre, RN)0625 (Given - Provider: Cesar Mcintyre RN)1635 (Given - Provider: Anitha Monaco, EBEN)2104 (Given - Provider: Cesar Mcintyre, EBEN) 0831 (Given - Provider: Madisyn Castaneda, RN)1141 (Given - Provider: Ameena Duckworth RN)1532 (Given - Provider: Madisyn Castaneda, RN)2020 (Given - Provider: Yanni Andre, RN) 0917 (Given - Provider: Archana Strange, EBEN)1350 (MAR Hold - Provider: Automatic Transfer Provider - Reason: Patient not available)1609 (MAR Unhold - Provider: Archana Strange, RN)1959 (Given - Provider: Shona Ontiveros, EBEN) ondansetron (ZOFRAN) injection 4 mg (CANCELED)(Linked Group 1) 4 mg, intravenous, Every 6 hours PRN, nausea, vomiting, if not tolerating PO, Starting on Sun05/15/17 at 1642, Pre-Op, Indications: Nausea and Vomiting 1635 (Given - Provider: Anitha Monaco RN)2309 (Given - Provider: Cesar Mcintyre, EBEN) 0830 (Given - Provider: Madisyn Castaneda, RN)2020 (Given - Provider: Yanni Andre, EBEN) 0744 (Given - Provider: Archana Strange, EBEN) ondansetron (ZOFRAN) injection 4 mg (COMPLETED) [...] minutes 1808 (Given - Provider: Archana Strange, EBEN) ondansetron ODT (ZOFRAN-ODT) disintegrating tablet 4 mg [...] Count Last Ordered Date First Ordered Date fentaNYL (SUBLIMAZE) preserv ative free injection 25 mcg 1 05/18/2017 HYDROcodone-acetaminophen (N ORCO) 5-325 mg per tablet 2 tablet 1 05/18/2017 meperidine (DEMEROL) preserv ative free injection 12.5 mg 1 05/18/2017 naloxone (NARCAN) injection 0.04-0.4 mg 1 1 07/19/2016 ondansetron (ZOFRAN) injection 4 mg 3 05/1805/15/2017 ondansetron ODT (ZOFRAN-ODT) disintegrating tablet 4 mg 2 05/18/2017 05/15/2017 diphenhydrAMINE (BENADRYL) injection 25 mg 2 05/16/2017 05/15/2017 tc-99m mebrofenin (chelotec) injection 5 millicurie 1 05/16/2017 cefTRIAXone (ROCEPHIN) IV syringe 1,000 mg 1 05/15/2017 metroNIDAZOLE (FLAGYL) premi x IVPB in sodium chloride 500 mg 1 05/15/2017 morphine injection 2 mg 1 05/15/2017 sodium chloride 0.9% flush 0.5-20 mL 2 05/04 sodium chloride 0.9% infusion 1 05/15/2017 Lab Orders Without Results Count Last Ordered [...] 05/15/2017 documented in this encounter Care Teams Electrolytic Etcher Relationship Specialty Start Date End Date Miscellaneous, Not In File PCP - General 02/15/17 No, Physician 01/10/17 documented as of this encounter
--- OUTSIDE RECORDS SUMMARY | 2024-06-13 23:59 | XMS_ITS | Encounter Summary ---
Author Organization [facility] Healthcare Address [address] [place] [address] Care Team Providers Care Finance Business Partner Name Role Phone Unavailable Primary Care Provider Unavailabl e Encounter Details Date Type Department Care Team (Late st Contact Info) Description 05/10/2010 5:26 PM RIB BUILDER - 05/10/2010 5:47 PM RIB BUILDER Hospital Encounter [facility] Sagar Roque MD [address] [place] [address] Esophageal reflux; Obesity Social History Tobacco Use Types Packs/Day Years Used Date Smoking Tobacco: Never Assessed Comments Unknown Sex and Gender Information Value Date Recorded Sex Assigned at Not on file Legal Sex Female 8:56 PM RIB BUILDER Gender Identity Not on file Sexual Orientation Not on file documented as of this encounter Plan of Treatment Not on file documented as of this encounter Visit Diagnoses Diagnosis Esophageal reflux Obesity Obesity, unspecified documented in this encounter
--- OUTSIDE RECORDS SUMMARY | 2024-06-13 23:59 | XMS_ITS | Encounter Summary ---
Author Organization [facility] Healthcare Address [address] [place] [address] Care Team Providers Care Flotation Tender Helper Name Role Phone Unavailable Primary Care Provider Unavailabl e Encounter Details Date Type Department Care Team ([facility] st Contact Info) Description 09/06/2016 Orders Only [facility]im [phone] Jerry Cee MD [address] [place] [address] Social History Tobacco Use Types Packs/Day Years Used Date Smoking Tobacco: Never Assessed Comments Unknown Sex and Gender Information Value Date Recorded Sex Assigned at Not on file Legal Sex Female 8:56 PM PREDATORY ANIMAL TRAPPER Gender Identity Not on file Sexual Orientation Not on file documented as of this encounter Plan of Treatment Not on file documented as of this encounter Procedures Procedure Name Priority Date/Time Associated Diagnosis Comments APTT STAT 09/06/2016 8:54 PM CDT documented in this encounter Results * aPTT (09/06/2016 8:54 PM CDT) aPTT 29.1 25.0 - 37.0 sec [facility] ([place]) Blood specimen (specimen) 09/06/2016 8:54 PM CDT 09/06/2016 8:57 PM CDT us Jerry Cee MD LAB BLOOD ORDERABLES Final Re sult [facility] ([place]) 1 [facility] [place] [address] documented in this encounter Visit Diagnoses Not on filedocumented in this encounter
--- OUTSIDE RECORDS SUMMARY | 2024-06-13 23:59 | XMS_ITS | Encounter Summary ---
Author Organization [facility] Healthcare Address [address] [place] [address] Care Team Providers Care Data Processing Supervisor Name Role Phone Unavailable Primary Care Provider Unavailabl e Encounter Details Date Type Department Care Team ([facility] st Contact Info) Description 04/25/2011 6:37 PM MANAGER SYSTEM - 04/25/2011 7:36 PM MANAGER SYSTEM Hospital Encounter [facility] Kavitha Person MD [address] [place] [id number] Contusion of knee; Sprain of ankle; Fall; Overexertion from sudden strenuous movement Social History Tobacco Use Types Packs/Day Years Used Date Smoking Tobacco: Never Assessed Comments Unknown Sex and Gender Information Value Date Recorded Sex Assigned at Not on file Legal Sex Female 8:56 PM MANAGER SYSTEM Gender Identity Not on file Sexual Orientation Not on file documented as of this encounter Plan of Treatment Not on file documented as of this encounter Visit Diagnoses Diagnosis Contusion of knee Sprain of ankle Unspecified site of ankle sprain and strain Fall Unspecified fall Overexertion from sudden strenuous movement documented in this encounter
--- OUTSIDE RECORDS SUMMARY | 2024-06-13 23:59 | XMS_ITS | Encounter Summary ---
Author Organization [facility] Healthcare Address [address] [place] [address] Care Team Providers Care Numerical Control Programmer Name Role Phone Unavailable Primary Care Provider Unavailabl e Encounter Details Date Type Department Care Team ([facility] st Contact Info) Description 09/06/2016 Orders Only [facility] Interim [phone] Jerry Cee MD [address] [place] [address] [address] [place] [address] Social History Tobacco Use Types Packs/Day Years Used Date Smoking Tobacco: Never Assessed Comments Unknown Sex and Gender Information Value Date Recorded Sex Assigned at Not on file Legal Sex Female 8:56 PM ACCESS NURSE Gender Identity Not on file Sexual Orientation Not on file documented as of this encounter Plan of Treatment Not on file documented as of this encounter Procedures Procedure Name Priority Date/Time Associated Diagnosis Comments PROTIME-INR STAT 09/06/2016 8:54 PM CDT documented in this encounter Results * Protime-INR (09/06/2016 8:54 PM CDT) PT 11.8 9.5 - 12.5 sec [facility] ([place]) INR 1.04 0.90 - 1.20 [facility] [...] BLOOD ORDERABLES Final Re sult [facility] [place] 1 [facility] Department [place] [address] documented in this encounter Visit Diagnoses Not on filedocumented in this encounter
--- OUTSIDE RECORDS SUMMARY | 2024-06-13 23:59 | XMS_ITS | Encounter Summary ---
Author Organization [facility] Healthcare Address [address] [place] [address] Care Team Providers Care Eviction Specialist Name Role Phone Unavailable Primary Care Provider Unavailabl e Encounter Details Date Type Department Care Team (Late st Contact Info) Description 03/24/2012 9:22 AM CDT - 03/24/2012 10:00 AM CDT Hospital Encounter [facility] Kavitha Person MD [address] [place] [address] Disease of lips Social History Tobacco Use Types Packs/Day Years Used Date Smoking Tobacco: Never Assessed Comments Unknown Sex and Gender Information Value Date Recorded Sex Assigned at Not on file Legal Sex Female 8:56 PM DIRECTOR WHOLESALE Gender Identity Not on file Sexual Orientation Not on file documented as of this encounter Plan of Treatment Not on file documented as of this encounter Visit Diagnoses Diagnosis Disease of lips Diseases of lips documented in this encounter
--- OUTSIDE RECORDS SUMMARY | 2024-06-13 23:59 | XMS_ITS | Encounter Summary ---
Author Organization [facility] Healthcare Address [address] [place] [address] Care Team Providers Care Tank Truck Driver Name Role Phone No, Physician Primary Care Provider [phone] Encounter Details Date Type Department Care Team (Late st Contact Info) Description 12/21/2016 10:46 AM CDT - 12/21/2016 1:29 PM CDT Emergency [facility] Emergency Department [address] [place] [address] Carlos Shah MD [address] [address] Discharge Disposition: Discharge to home or self care Social History Tobacco Use Types Packs/Day Years Used Date Smoking Tobacco: Never Assessed Comments Unknown Sex and Gender Information Value Date Recorded Sex Assigned at Not on file Legal Sex Female 8:56 PM ENVELOPE FOLD OPERATOR Gender Identity Not on file Sexual Orientation Not on file documented as of this encounter Discharge Disposition Disposition Code Departure Means Destination Discharge to home or self care documented in this encounter Plan of Treatment Not on file documented as of this encounter Procedures Procedure Name Priority Date/Time Associated Diagnosis Comments CT ABDOMEN PELVIS W CONTRAST Routine 12/21/2016 5:37 PM CDT EGFR STAT 12/21/2016 11:40 AM CDT DIFFERENTIAL AUTO STAT 12/21/2016 11: 40 AM CDT CBC WITH AUTO DIFFERENTIAL STAT 12/21/2016 11:40 AM CDT LIPASE STAT 12/21/2016 11:40 AM CDT COMPREHENSIVE METABOLIC PANEL STAT 12/21/2016 11:40 AM CDT URINE CULTURE STAT 12/21/2016 11:35 AM CDT URINALYSIS AND REFLEX TO MICROSCOPIC AND CULTURE STAT 12/21/2016 11:35 AM CDT URINALYSIS, MICROSCOPIC ONLY STAT 12/21/2016 11:35 AM CDT DISCHARGE LABORATORY CUMULATIVE REPORT 12/21/2016 12:00 AM CDT documented in this encounter Results * CT Abdomen Pelvis W Contrast (12/21/2016 5:37 PM CDT) Anatomical Region Laterality Modality Body N/A Computed Tomogra phy 12/21/2016 5:37 PM CDT Narrative 12/21/2016 5:[address] ABD/PEL W IV ONLY ??Acc#: ??[id number] DATE OF EXAM: ??Dec 21 2016 ?? CT ABD/PEL W IV ONLY HISTORY: Abdominal Pain. ??Nausea and constipation. TECHNIQUE: Helically acquired axial images were obtained from the dome of the diaphragm to the pubic symphysis. CONTRAST: 100 mL Optiray 320, COMPARISON: None available. FINDINGS: The liver, spleen, pancreas, adrenals, and kidneys are normal. ??The small and large bowel are nondilated. ??Moderate stool is seen throughout the colon. ??The appendix is normal. There is no evidence of ascites or adenopathy. ??Mild inflammatory changes are present in the pelvis consistent with recent surgery. ??Mild subcutaneous emphysema is seen in the abdominal wall also consistent with recent laparoscopic surgery. The lung bases are clear. HNHIMPRESSION: ?? 1. ??POSTSURGICAL CHANGES FOLLOWING RECENT LAPAROSCOPIC PELVIC SURGERY. 2. ??NO EVIDENCE OF ACUTE INTRA-ABDOMINAL PROCESS. NElectronically signed by: Kevin Garza M.D. Interpreting Physician: ??DR ROLY BARRAGAN M.D. ??Read on: ??Dec 21 2016 12:47P Transcribed by: ??PSC ??On: Dec 21 2016 12:45P Approved Electronically by: ??YUNG Jasmine, DR DUNHAM ??on: ??Dec 21 2016 12:45P Ordering DR: DR CARLOS SHAH Attending DR: DR CARLOS SHAH Attending: ??DR CARLOS SHAH Requesting: ??DR CARLOS SHAH Requesting Fax: ??[phone] Attending Fax: ??[phone] Attending ID: ??[id number] Requesting ID: ??[id number] Report To 1 ID: ??[id number] Report To 1 Name: ??DR CARLOS SHAH Report To 1 FAX: ??[phone] NextGen Order #: ?? Procedure Note Miscellaneous, Not In File / Provider, MD Tracey - 01/12/2017 CT ABD/PEL W IV ONLY Acc#: [id number] DATE OF EXAM: Dec [address] ABD/PEL W IV ONLY HISTORY: Abdominal Pain. Nausea and constipation. TECHNIQUE: Helically acquired axial images were obtained from the dome of the diaphragm to the pubic symphysis. CONTRAST: 100 mL Optiray 320, COMPARISON: None available. FINDINGS: The liver, spleen, pancreas, adrenals, and kidneys are normal. The small and large bowel are nondilated. Moderate stool is seen throughout the colon. The appendix is normal. There is no evidence of ascites or adenopathy. Mild inflammatory changes are present in the pelvis consistent with recent surgery. Mild subcutaneous emphysema is seen in the abdominal wall also consistent with recent laparoscopic surgery. The lung bases are clear. HNHIMPRESSION: 1. POSTSURGICAL CHANGES FOLLOWING RECENT LAPAROSCOPIC PELVIC SURGERY. 2. NO EVIDENCE OF ACUTE INTRA-ABDOMINAL PROCESS. NElectronically signed by: Kevin Garza M.D. Interpreting Physician: DR ROLY BARRAGAN M.D. Read on: Dec 21 2016 12:47P Transcribed by: PSC On: Dec 21 2016 12:45P Approved Electronically by: YUNG Jasmine, DR DUNHAM on: Dec 21 2016 12:45P Ordering DR: DR CARLOS SHAH Attending DR: DR CARLOS SHAH Attending: DR CARLOS SHAH Requesting: DR CARLOS SHAH Requesting Attending Attending ID: [id number] Requesting ID: [id number] Report To 1 ID: [id number] Report To 1 Name: DR CARLOS SHAH Report To 1 FAX: [phone] NextGen Order #: Carlos Shah MD IMG CT PROCEDURES Final Result * eGFR (12/21/2016 11:40 AM CDT) eGFR >60 mL/min/1.7 3 m2 [facility] ([place]) Comment: Interpretive Data Reference Interval Normal ?>/= 90 mL/min/1.73m2 Mildly decreased* ? 60 - 89 mL/min/1.73m2 Mildly to moderately decreased ?45 - 59 mL/min/1.73m2 Moderately to severely decreased ??30 - 44 mL/min/1.73m2 Severely decreased ?15 - 29 mL/min/1.73m2 Kidney Failure ?< 15 ??mL/min/1.73m2 *Relative to young adult level If -Palestinian multiply value by 1.16. Estimated glomerular filtration [...] was last reviewed 2015. Blood specimen (specimen) 12/21/2016 11:40 AM CDT 12/21/2016 11:44 AM CDT Carlos Shah MD LAB BLOOD ORDERABLES Final Res ult [facility] ([place]) 1 [facility] Department [place] [address] * Comprehensive metabolic panel (12/21/2016 11:40 AM CDT) Sodium 140 135 - 145 mmol/L [facility] ([place]) Potassium 4.2 3.5 - 5.1 mmol/L [facility] ([place]) Chloride 101 97 - 110 mmol/L [facility] ([place]) CO2 28 22 - 32 mmol/L [facility] ([place]) Anion gap 11 8 - 16 mmol/L [facility] ([place]) Glucose 96 70 - 199 mg/dL [facility] ([place]) [...] data was last revised on 2014. BUN 8.2 8.0 - 25.0 mg/dL [facility] ([place]) Creatinine 0.75 0.40 - 1.00 mg/dL [facility] ([place]) BUN/creat ratio 11 10 - 20 [facility] ([place]) Calcium 9.4 8.6 - 10.2 mg/dL [facility] ([place]) Protein, sr 7.9 6.0 - 8.4 g/dL [facility] ([place]) Albumin 3.7 3.6 - 5.0 g/dL [facility] ([place]) Alk phos 107 70 - 260 Units/L [facility] ([place]) ALT 34 5 - 45 Units/L [facility] ([place]) AST 27 10 - 40 Units/L [facility] ([place]) Bilirubin, total <0.2 <=1.2 mg/dL [facility] ([place]) Blood specimen (specimen) 12/21/2016 11:40 AM CDT 12/21/2016 11:44 AM CDT Carlos Shah MD LAB BLOOD ORDERABLES Final Res ult [facility] ([place]) 1 [facility] Department [place] [address] * Lipase (12/21/2016 11:40 AM CDT) Lipase 40 10 - 70 Units/L [facility] ([place]) Blood specimen (specimen) 12/21/2016 11:40 AM CDT 12/21/2016 11:44 AM CDT Carlos Shah MD LAB BLOOD ORDERABLES Final Res ult Performing Organization Address [facility] Co de Phone Number [facility] ([place]) 1 [facility] [place] [address] * (ABNORMAL) Differential, auto (12/21/2016 11:40 AM CDT) Pathologist [facility] Neutrophil pct 71.6 44.0 - 80.0 % [facility] ([place]) Imm gran pct 0.4 0.0 - 1.0 % [facility] ([place]) Lymphocyte pct 20.9 13.0 - 44.0 % [facility] ([place]) Monocyte pct 5.8 2.0 - 11.0 % [facility] ([place]) Eosinophil pct 1.0 0.0 - 6.0 % [facility] ([place]) Basophil pct 0.3 0.0 - 3.0 % [facility] ([place]) Neutrophil abs 7.04(H) 1.60 - 7.00 K/cumm [facility] ([place]) Imm gran abs 0.04 0.00 - 0.20 K/cumm [facility] ([place]) Lymphocyte abs 2.06 0.50 - 4.30 K/cumm [facility] ([place]) Monocyte abs 0.57 0.10 - 1.00 K/cumm [facility] ([place]) Eosinophil abs 0.10 0.00 - 0.60 K/cumm [facility] ([place]) Basophil abs 0.03 0.00 - 0.30 K/cumm [facility] ([place]) Blood specimen (specimen) 12/21/2016 11:40 AM CDT 12/21/2016 11:44 AM CDT Carlos Shah MD LAB BLOOD ORDERABLES Final Res ult [facility] ([place]) [address] [facility] [employer] [place] [address] * (ABNORMAL) CBC with auto differential (12/21/2016 11:40 AM CDT) WBC 9.84(H) 3.80 - 9.80 K/cumm [facility] ([place]) RBC 4.99 3.90 - 5.00 M/cumm [facility] ([place]) Hgb 12.7 12.1 - 15.1 g/dL [facility] ([place]) Hct 39.3 36.1 - 44.3 % [facility] ([place]) MCV 78.8(L) 80.0 - 100.0 fL [facility] ([place]) MCH 25.5(L) 26.7 - 33.7 pg [facility] ([place]) MCHC 32.3(L) 32.7 - 36.0 g/dL [facility] ([place]) RDW CV 14.3 11.5 - 14.6 % [facility] ([place]) Plt 319 140 - 440 K/cumm [facility] ([place]) MPV 11.6 8.0 - 12.0 fL [facility] ([place]) NRBC 0.0 0.0 - 0.0 % [facility] ([place]) NRBC abs 0.00 0.00 - 0.00 K/cumm [facility] ([place]) Blood specimen (specimen) 12/21/2016 11:40 AM CDT 12/21/2016 11:44 AM CDT Carlos Shah MD LAB BLOOD ORDERABLES Final Res ult Performing Organization Address [facility]/ZIP Co de Phone Number [facility] ([place]) [address] Department [place] [address] * Urine culture (12/21/2016 11:35 AM CDT) Report Final Report: Greater than or equal to 100,000 colonies/ml of Proteus mirabilis Plus growth of clinically insignificant bacterial keyla. [facility] ([place]) Comment:Testing performed by : [facility], [address] [place]., [address] Organism PROTEUS MIRABILIS CE ILYA ARCHU[facility]TA ([place]) Organism PLUS GROWTH OF CLINICALLY INSIGNIFICANT BACTERIAL KEYLA. [facility] ([place]) Urine 12/21/2016 11:3 5 AM CDT 12/21/2016 2:22 PM CDT Narrative [facility] ([place]) - 12/22/2016 8:47 AM CDT Organism Antibiotic Method Susceptibility Proteus mirabilis Ampicillin INTERPRETATION Susceptible Proteus mirabilis Cefazolin INTERPRETATION Susceptible Proteus mirabilis Nitrofurantoin INTERPRETATION Resistant Proteus mirabilis Gentamicin INTERPRETATION Susceptible Proteus mirabilis Trimethoprim with Sulfamethoxazole I NTERPRETATION Susceptible Proteus mirabilis Meropenem INTERPRETATION Susceptible Proteus mirabilis Cefepime INTERPRETATION Susceptible Proteus mirabilis Ciprofloxacin INTERPRETATION Susceptible Proteus mirabilis Ceftazidime INTERPRETATION Susceptible Proteus mirabilis Ceftriaxone INTERPRETATION Susceptible Proteus mirabilis Piperacillin/Tazobactam INTERPRETATI ON Susceptible Proteus mirabilis Cephalexin INTERPRETATION Susceptible Proteus mirabilis Cefuroxime-axetil INTERPRETATION Susceptible Proteus mirabilis Cefdinir INTERPRETATION Susceptible us Carlos Shah MD LAB MICROBIOLOGY - GENERAL ORD ERABLES Final Result [facility] ([place]) 1 [facility] Department [place] [address] * (ABNORMAL) Urinalysis reflex to microscopic and culture (12/21/2016 11:35 AM CDT) Color, ur Yellow Yellow [facility] ([place]) Clarity, ur Cloudy(A) Clear [facility] ([place]) Specific gravity, ur <=1.005 1.003 - 1.030 [facility] ([place]) Comment:Normal Ranges: 1.003 -1.030 pH, ur 7.0 4.5 - 8.0 [facility] ([place]) Comment:Normal ranges: 4.5-8 .0 Protein, ur ql Negative Negative mg/dL [facility] ([place]) Glucose, ur ql Negative Negative mg/dL [facility] ([place]) Ketones, ur Negative Negative [facility] ([place]) Bilirubin, ur Negative Negative [facility] ([place]) Blood, ur Large(A) Negative [facility] ([place]) Urobilinogen, ur 0.2 0.2 - 1.0 [facility] ([place]) Comment:Normal Ranges: 0.2-1 .0 EU/dL Nitrites, ur Negative Negative [facility] ([place]) Leukocyte esterase, ur Small(A) Negative [facility] ([place]) Urine 12/21/2016 11:3 5 AM CDT 12/21/2016 11:41 AM CDT Carlos Shah MD LAB MICROBIOLOGY - GENERAL ORD ERABLES Final Result [facility] ([place]) 1 [facility] Department [place] [address] * (ABNORMAL) Urinalysis, microscopic only (12/21/2016 11:35 AM CDT) RBC, ur 10-25(A) 0 - 2 [facility] ([place]) WBC, ur 5-10(A) 0 - 2 [facility] ([place]) Bacteria, ur 1+(A) Negative [facility] ([place]) Hyaline casts, ur Not Seen 0 - 2 [facility] ([place]) Epithelial cells, ur 5-10(A) 0 - 2 [facility] ([place]) Urine 12/21/2016 11:3 5 AM CDT 12/21/2016 11:41 AM CDT Carlos Shah MD LAB URINE ORDERABLES Final Res ult [facility] ([place]) 1 [facility] Department [place] [address] * DISCHARGE LABORATORY CUMULATIVE REPORT (12/21/2016 12:00 AM CDT) Narrative 12/21/2016 12:00 AM CDT Ordered by an unspecified provider. us Historical Provider LAB BLOOD ORDERABLES Farida l Result documented in this encounter Visit Diagnoses Not on filedocumented in this encounter Care Teams Tank Truck Driver Relationship Specialty Start Date End Date No, Physician PCP - General 12/17/16 01/09/17 documented as of this encounter
--- OUTSIDE RECORDS SUMMARY | 2024-06-13 23:59 | XMS_ITS | Encounter Summary ---
Author Organization [facility] Healthcare Address [address] [place] [address] Care Team Providers Care Equipment Inspector Name Role Phone No, Physician Unavailable No, Physician Primary Care Provider [phone] Reason for Visit * Reason Comments Abdominal Pain Encounter Details Date Type Department Care Team (Late st Contact Info) Description 02/04/2018 5:50 PM CDT - 02/04/2018 11:41 PM CDT Emergency 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[employer] Gender Identity Not on file Sexual Orientation Not on file documented as of this encounter Last Filed Vital Signs Vital Sign Reading Time Taken Comments Blood Pressure 114/75 02/04/2018 11:34 PM CDT Pulse 105 02/04/2018 11:34 PM CDT Temperature 36.8 ??C (98.2 ??F) 02/04/2018 11:34 PM C DT Respiratory Rate 18 02/04/2018 11:34 PM CDT Oxygen Saturation 97% 02/04/2018 11:34 PM CDT Inhaled Oxygen Concentration - - Weight 126.1 kg (278 lb) 02/04/2018 6:19 PM CDT Height - - Body Mass Index 46.26 12/26/2017 3:06 PM CDT documented in this encounter Discharge Instructions * Discharge Instructions* Kavitha Lange MD - 02/04/2018 11:26 PM CDT Doxycycline 100mg twice daily for 10 days. Zantac 150mg daily. Return to the ER if condition worsens. * Attachments The following attachments cannot be sent through Care Everywhere. * Mesenteric Adenitis (AfterCare(R) Instructions(ER/ED)) ([facility]) * Cervicitis (AfterCare(R) Instructions(ER/ED)) ([facility]) * Gastroesophageal Reflux Disease (AfterCare(R) Instructions(ER/ED)) ([facility]) documented in this encounter Medications at Time of Discharge butalbital-aceta minophen-caffein e (FIORICET, ESGIC) 50-325-40 mg per tablet Take 1 tablet by mouth every 4 (four) hours as needed for headaches (1 tablet for mild to moderate pain or 2 tablets for severe pain.). Do not exceed 6 tablets/day. 20 tablet 12/26/2017 8 doxycycline (VIBRAMYCIN) 100 mg capsule Take 1 tablet/capsule (100 mg total) by mouth 2 (two) times a day. 20 capsule 02/04/2018 8 ibuprofen (ADVIL,MOTRIN) 800 mg tablet Take 1 tablet (800 mg total) by mouth 3 (three) times a day. 21 tablet 12/05/2017 9 raNITIdine (ZANTAC) 150 mg tablet Take 1 tablet (150 mg total) by mouth nightly as needed for heartburn. 30 tablet 02/04/2018 8 documented as of this encounter Ordered Prescriptions Prescription Sig Dispense Quantity Refills Last Filled Start Date End Date raNITIdine (ZANTAC) 150 mg tablet Take 1 tablet (150 mg total) by mouth nightly as needed for heartburn. 30 tablet 02/04/2018 8 doxycycline (VIBRAMYCIN) 100 mg capsule Take 1 tablet/capsul e (100 mg total) by mouth 2 (two) times a day. 20 capsule 02/04/2018 8 documented in this encounter Discharge Disposition Disposition Code Departure Means Destination Discharge to home or self care documented in this encounter ED Notes * Alice Sinclair MD - 02/04/2018 7:41 PM CDT HPI Chief Complaint Patient presents with ??? Abdominal Pain 6:43PM: Patient is a 18 year old female nonsmoker with a h/o ovarian cyst and anemia presenting to the ED c/o abdominal pain and a syncopal episode that occurred this afternoon. Patient also notes that she had vaginal bleeding this morning, and was passing quarter-sized blood clots. Patient finished her menstrual period one week ago. Patient notes that she was experiencing severe abdominal cramping and leg weakness before syncope. Patient did hit her head. Patient denies headache, light-headedness, chest pain, sob, dysuria or hematuria. Patient is not on blood thinners or control. She denies any chance of . Patient states she had a 10-inch ovarian cyst removed about 9 months ago. Patient History Patient Active Problem List [...] for chills and fever. HENT: Negative for ear pain and sore throat. Eyes: Negative for pain and visual disturbance. Respiratory: Negative for cough and shortness of breath. Cardiovascular: Negative for chest pain and palpitations. Gastrointestinal: Positive for abdominal pain. Negative for vomiting. Genitourinary: Positive for vaginal bleeding (quarter-size blood clots). Negative for dysuria and hematuria. Musculoskeletal: Negative for arthralgias and back pain. Skin: Negative for color change and rash. Neurological: Positive for syncope and weakness (bilateral legs). Negative for seizures, light-headedness and headaches. All other systems reviewed and are negative. Physical Exam ED Triage Vitals [02/04/181818] Temp Pulse Resp BP SpO2 37 ??C (98.6 ??F) 116 20 (!) 150/102 97 % Temp src Heart Rate Source Patient Position BP Location FiO2 (%) -- -- -- -- -- Physical Exam Constitutional: She is oriented to person, place, and time. She appears well- developed. No distress. Morbidly obese HENT: Head: Normocephalic and atraumatic. Eyes: Pupils are equal, round, and reactive to light. Conjunctivae are normal. Neck: Normal range of motion. Neck supple. Cardiovascular: Regular rhythm and normal heart sounds. Tachycardic Pulmonary/Chest: Effort normal and breath sounds normal. No respiratory distress. Abdominal: Soft. She exhibits no distension. There is no tenderness. Genitourinary: Genitourinary Comments: Nurse present during exam Pelvic exam: copious amount of yellow vaginal discharge; no active bleeding, no blood; no adnexal tenderness; positive for CMT Musculoskeletal: Normal range of motion. She exhibits no tenderness. Neurological: She is alert and oriented to person, place, and time. Skin: Skin is warm and dry. No pallor. Nursing note and vitals reviewed. MDM MDM Number of Diagnoses or Management Options Diagnosis management comments: Pt care transferred to Dr. Lange Added on ddimer, she will reassess pt's pain, patient may need CT ab/pelvis given pain, tachycardiaand elevated wbc Amount and/or Complexity of Data Reviewed Clinical lab tests: ordered and reviewed Independent visualization of images, tracings, or specimens: yes Vitals: 09/03/18 1819 BP: (!) 150/102 Pulse: 116 Resp: 20 Temp: 37 ??C (98.6 ??F) SpO2: 97% Labs Reviewed URINALYSIS AND REFLEX TO MICROSCOPIC AND CULTURE - Abnormal Result Value Color, ur Alix Clarity, ur Clear Specific gravity, ur 1.030 (*) pH, urine 5.5 Protein, ur ql 1+ (*) Glucose, ur ql Negative Ketones, ur Negative Bilirubin, ur Negative Blood, ur Trace (*) Urobilinogen, ur 0.2 Nitrite, ur Negative Leukocyte esterase, ur Negative Narrative: Urine pH is affected by diet, medications, systemic acid-base disturbances, and renal tubular function. pH may affect urinary stone formation. For example, urine pH below 6.0 may help reduce the tendency for calcium phosphate stones and pH greater than 6.0 may reduce the tendency for uric acid stone formation. Source: [facility].Last revised 06-14-2017 CBC WITH AUTO DIFFERENTIAL - Abnormal WBC 14.0 (*) Hgb 11.8 (*) Hct 38.7 Plt 342 MPV 11.2 RBC 4.97 MCV 77.9 (*) MCH 23.7 (*) MCHC 30.5 (*) RDW CV 15.3 (*) RDW SD 42.9 NRBC Abs 0.00 Narrative: DIFFERENTIAL AUTO - Abnormal Neutrophil absolute 11.0 (*) Immature granulocyte absolute 0.1 Lymphocytes absolute 2.2 Monocyte absolute 0.6 Eosinophils absolute 0.1 Basophils, abs 0.0 Neutrophils 78.3 Immature granulocytes 1.0 Lymphocytes 15.7 Monocytes 4.2 Eosinophils 0.6 Basophils 0.2 Narrative: URINALYSIS, MICROSCOPIC ONLY - Abnormal WBC, ur 0-5 RBC, ur 6-10 (*) Epithelial cells, squamous, ur 1-5 Bacteria, ur 1+ (*) Hyaline casts, ur 1-5 Narrative: COMPREHENSIVE METABOLIC PANEL Sodium 140 Potassium, pl 4.2 Chloride 101 CO2 26 Anion Gap 13 BUN 16 Creatinine 0.73 Glucose 117 Calcium 9.1 Bilirubin, total <0.2 Protein, pl 7.7 Albumin 3.8 Alk phos 118 ALT 26 AST 21 Narrative: HCG, BLOOD, QUANTITATIVE hCG, quant <5.0 Narrative: EGFR GFR >60 Narrative: TYPE AND SCREEN ABO/RH ANTIBODY SCREEN CHLAMYDIA TRACHOMATIS/N. GONORRHOEAE, SWAB [place] [facility] No orders to display ED Course as of Feb 04 1955 Time: 02/05 1948 Comment: Pre-hypertension/Hypertension: The patient has been informed that they may have pre-hypertension or Hypertension based on a blood pressure reading in the Emergency Department. I recommend that the patient call the primary care provider listed on their discharge instructions or a physician of their choice this week to arrange follow up for further evaluation of possible pre- hypertension or Hypertension. By: Mariama Mejia No diagnosis found. This note is prepared by Mariama Mejia acting as a scribe for Alice Sinclair MD. Signed by Geetha Valenzuela, 7:55PM 02/04/2018 I, Alice Sinclair MD, have personally performed the services described in the documentation, reviewed the documentation, as recorded by the scribe in my presence, and it accurately and completely records my words and actions. Alice Sinclair MD 02/04/182135 * Hema Quinn RN - 02/04/2018 6:22 PM CDT Pt to ED for abdominal pain and a syncopal episode today. Pt also stated she has been passing bloodand clots today . documented in this encounter Miscellaneous Notes * ED Re-evaluation Note - Kavitha Lange MD - 02/04/2018 9:00 PM CDT 8:55 PM 02/04/2018 - Went to meet the patient and reevaluate her. She is noted to have a persistent tachycardia and is c/o epigastric burning sensation like indigestion and lower abdominal pain particularly in the RLQ. On examination, lungs are clear, cardiac rhythm is regular with tachycardia noted and there is tenderness located in the RLQ noted with palpation. A D-dimer was ordered and is negative. At this point, I feel that because of her persistent RLQ pain and elevated WBC, that she should have a CT abdomen and pelvis to rule out appendicitis or other intraabdominal pathology. 10:56 PM 02/04/2018 - Rechecked patient and discussed all lab and radiology findings as well as plan for discharge. Patient is advised to f/u with her PCP and return to the ED for any new/worsening symptoms. She understands and agrees with treatment. All questions were addressed and answered at this time. 11:15 PM 02/04/2018 - Patient reports that when she takes Penicillin, she has facial edema and a rash. Will prescribe Cipro and Zithromax instead of Rocephin. Labs Reviewed URINALYSIS AND REFLEX TO MICROSCOPIC AND CULTURE - Abnormal Result Value Color, ur Alix Clarity, ur Clear Specific gravity, ur 1.030 (*) pH, urine 5.5 Protein, ur ql 1+ (*) Glucose, ur ql Negative Ketones, ur Negative Bilirubin, ur Negative Blood, ur Trace (*) Urobilinogen, ur 0.2 Nitrite, ur Negative Leukocyte esterase, ur Negative Narrative: Urine pH is affected by diet, medications, systemic acid-base disturbances, and renal tubular function. pH may affect urinary stone formation. For example, urine pH below 6.0 may help reduce the tendency for calcium phosphate stones and pH greater than 6.0 may reduce the tendency for uric acid stone formation. Source: [employer].Last revised 06-14-2017 CBC WITH AUTO DIFFERENTIAL - Abnormal WBC 14.0 (*) Hgb 11.8 (*) Hct 38.7 Plt 342 MPV 11.2 RBC 4.97 MCV 77.9 (*) MCH 23.7 (*) MCHC 30.5 (*) RDW CV 15.3 (*) RDW SD 42.9 NRBC Abs 0.00 Narrative: DIFFERENTIAL AUTO - Abnormal Neutrophil absolute 11.0 (*) Immature granulocyte absolute 0.1 Lymphocytes absolute 2.2 Monocyte absolute 0.6 Eosinophils absolute 0.1 Basophils, abs 0.0 Neutrophils 78.3 Immature granulocytes 1.0 Lymphocytes 15.7 Monocytes 4.2 Eosinophils 0.6 Basophils 0.2 Narrative: URINALYSIS, MICROSCOPIC ONLY - Abnormal WBC, ur 0-5 RBC, ur 6-10 (*) Epithelial cells, squamous, ur 1-5 Bacteria, ur 1+ (*) Hyaline casts, ur 1-5 Narrative: D-DIMER, QUANTITATIVE - Abnormal D-dimer <150 (*) Narrative: TRICHOMONAS ANTIGEN DETECTION Report Value: Final Report: Negative for Trichomonas antigen Narrative: COMPREHENSIVE METABOLIC PANEL Sodium 140 Potassium, pl 4.2 Chloride 101 CO2 26 Anion Gap 13 BUN 16 Creatinine 0.73 Glucose 117 Calcium 9.1 Bilirubin, total <0.2 Protein, pl 7.7 Albumin 3.8 Alk phos 118 ALT 26 AST 21 Narrative: TYPE AND SCREEN HCG, BLOOD, QUANTITATIVE hCG, quant <5.0 Narrative: ABO/RH ABO/RH. A Positive Narrative: Has the patient had Daratumumab (Darzalex) in the past 6 months?->Unknown ANTIBODY SCREEN Steve, indirect, Gel Interpretation Negative ABSC Narrative: Has the patient had Daratumumab (Darzalex) in the past 6 months?->Unknown EGFR GFR >60 Narrative: LACTATE Lactate 1.3 Narrative: CHLAMYDIA TRACHOMATIS/N. GONORRHOEAE, SWAB [place] N. GONORRHOEAE NA AMP, SWAB CHLAMYDIA TRACHOMATIS BY NA AMP,SWAB CT Abdomen Pelvis W Contrast Final Result 1. MILDLY PROMINENT MESENTERIC LYMPH NODES. THIS IS NONSPECIFIC BUT MAY REPRESENT SECONDARY FINDINGS OF MILD ENTERITIS. CLINICAL CORRELATION IS RECOMMENDED. 2. OTHERWISE NORMAL CT OF THE ABDOMEN AND PELVIS. Electronically signed by: Kevin Garza M.D. BP 156/84 Pulse 103 Temp 37 ??C (98.6 ??F) Resp 18 Wt 126.1 kg (278 lb) SpO2 97% BMI 46.26 kg/m?? 9:00 PM: This note is prepared by Echo Singleton, acting as a scribe for Kavitha Lange MD. I electronically signed this note at 9:00 PM on 02/04/2018. I, Kavitha Lange MD, have personally performed the services described in the documentation , reviewed the documentation, as recorded by the scribe in my presence, and it accurately and completely records my words and actions. Kavitha Lange MD 02/08/18 1802 * ED Procedure Note - Alice Sinclair MD - 02/04/2018 7:32 PM CDT Associated Order(s): ECG 12-LEAD Procedure ECG 12 lead Date/Time: 02/04/2018 7:04 PM Performed by: ALICE SINCLAIR Authorized by: ALICE SINCLAIR Rate: ECG rate: 110 ECG rate assessment: tachycardic Rhythm: Rhythm: sinus tachycardia Ectopy: Ectopy: none QRS: QRS axis: Normal ST segments: ST segments: Non-specific Previous ECG: Previous ECG: Compared to current Date of previous EC02/15/2017 Similarity: No change Alice Sinclair MD 02/04/18 193 documented in this encounter Plan of Treatment Not on file documented as of this encounter Procedures Procedure Name Priority Date/Time Associated Diagnosis Comments CT ABDOMEN PELVIS W CONTRAST ED 02/04/2018 9:30 PM CDT CHLAMYDIA TRACHOMATIS/N. GONORRHOEAE, SWAB [facility] Routine 02/04/2018 8:26 PM CDT N. GONORRHOEAE NA AMP, SWAB Routine 02/04/2018 8:26 PM CDT CHLAMYDIA TRACHOMATIS BY NA AMP,SWAB Routine 02/04/2018 8:26 PM CDT TRICHOMONAS ANTIGEN STAT 02/04/2018 8 :26 PM CDT LACTATE STAT 02/04/2018 8:16 PM CDT URINALYSIS AND REFLEX TO MICROSCOPIC AND CULTURE STAT 02/04/2018 7:07 PM CDT URINALYSIS, MICROSCOPIC ONLY STAT 02/04/2018 7:07 PM CDT ECG 12-LEAD STAT 02/04/2018 7:04 PM CDT ABO/RH STAT 02/04/2018 7:02 PM CDT ANTIBODY SCREEN STAT 02/04/2018 7:02 PM CDT TYPE AND SCREEN STAT 02/04/2018 7:02 PM CDT EGFR STAT 02/04/2018 6:55 PM CDT DIFFERENTIAL AUTO STAT 02/04/2018 6:5 5 PM CDT CBC WITH AUTO DIFFERENTIAL STAT 02/04/2018 6:55 PM CDT D-DIMER, QUANTITATIVE Add-On 02/04/2018 6:55 PM CDT HCG, BLOOD, QUANTITATIVE STAT 02/04/2018 6:55 PM CDT COMPREHENSIVE METABOLIC PANEL STAT 02/04/2018 6:55 PM CDT documented in this encounter Results * CT Abdomen Pelvis W Contrast (02/04/2018 9:30 PM CDT) Anatomical Region Laterality Modality Body N/A Computed Tomogra phy 02/04/2018 9:30 PM CDT Impressions 02/04/2018 9:32 PM CDT 1. ??MILDLY PROMINENT MESENTERIC LYMPH NODES. ??THIS IS NONSPECIFIC BUT MAY REPRESENT SECONDARY FINDINGS OF MILD ENTERITIS. ??CLINICAL CORRELATION IS RECOMMENDED. 2. ??OTHERWISE NORMAL CT OF THE ABDOMEN AND PELVIS. Electronically signed by: Kevin Garza M.D. Narrative 02/04/2018 9:[address] ABDOMEN PELVIS W CONTRAST HISTORY: abdominal pain. ??Lower abdominal pain, nausea. TECHNIQUE: Helically acquired axial images were obtained from the dome of the diaphragm to the pubic symphysis. CONTRAST: 100 mL Optiray 320, COMPARISON: 09/29/2017 FINDINGS: The liver, spleen, pancreas, adrenals, and kidneys are normal. ??The patient is status post cholecystectomy. ??The small and large bowel are nondilated. ??A few mildly enlarged mesenteric lymph nodes are present. ??These are nonspecific. ??The appendix is normal. ??There is no evidence of ascites. ??The pelvic contents are normal. The lung bases are clear. Procedure Note Kevin Garza MD - 02/04/2018 CT ABDOMEN PELVIS W CONTRAST HISTORY: abdominal pain. Lower abdominal pain, nausea. TECHNIQUE: Helically acquired axial images were obtained from the dome of the diaphragm to the pubic symphysis. CONTRAST: 100 mL Optiray 320, COMPARISON: 09/29/2017 FINDINGS: The liver, spleen, pancreas, adrenals, and kidneys are normal. The patient is status post cholecystectomy. The small and large bowel are nondilated. A few mildly enlarged mesenteric lymph nodes are present. These are nonspecific. The appendix is normal. There is no evidence of ascites. The pelvic contents are normal. The lung bases are clear. IMPRESSION: 1. MILDLY PROMINENT MESENTERIC LYMPH NODES. THIS IS NONSPECIFIC BUT MAY REPRESENT SECONDARY FINDINGS OF MILD ENTERITIS. CLINICAL CORRELATION IS RECOMMENDED. 2. OTHERWISE NORMAL CT OF THE ABDOMEN AND PELVIS. Electronically signed by: Kevin Garza M.D. Kavitha Lange MD IMG CT PROCEDURES Final Re sult * Chlamydia trachomatis by NA Amp, swab (02/04/2018 8:26 PM CDT) C. trachomatis RNA Negative Negative [facility] ARCHULETA ([place]) Comment: Interpretive Data This test has been [...] Interpretive Data was last revised on 2015 Testing performed by: [facility], [address] [place] [address]., [id number] Swab 02/04/2018 8:26 PM CDT 02/05/2018 11:42 AM CDT Narrative MICHEAL ARCHULETA ([place]) - 02/06/2018 12:07 PM CDT [facility] LAB BODY FLUIDS AND STO OLS ORDERABLES Final Result Performing Organization Address [facility] Co de Phone Number MICHEAL ARCHULETA ([place]) 1 [facility] [place] [address] * N. Gonorrhoeae NA Amp, swab (02/04/2018 8:26 PM CDT) N. gonorrhoeae RNA Negative Negative MICHEAL KATHE ([place]) Comment: Interpretive Data This test has been [...] Interpretive Data was last revised on 2015 Testing performed by: [facility], [address] [place] [address]., [id number] Swab 02/04/2018 8:26 PM CDT 02/05/2018 11:42 AM CDT Narrative MICHEAL ARCHULETA ([place]) - 02/06/2018 12:07 PM CDT [facility] LAB BODY FLUIDS AND STO OLS ORDERABLES Final Result [facility]AL ARCHULETA ([place]) 1 [facility] [place] [address] * Trichomonas antigen detection Vaginal (02/04/2018 8:26 PM CDT) Report Final Report: Negative for Trichomonas antigen [facility]ERL[facility] ARCHULE[facility] ([place]) Vaginal 02/04/2018 8:26 PM CDT 02/04/2018 8:48 PM CDT Narrative [facility]AL ARCHULETA ([place]) - 02/04/2018 8:49 PM CDT [facility] MICROBIOLOGY - GENE RAL ORDERABLES Final Result MICHEAL ARCHULETA ([place]) 1 [facility] [place] [address] * Lactate (02/04/2018 8:16 PM CDT) Pathologist [facility] Lactate 1.3 0.7 - 2.0 mmol/L MICHEAL KATHE ([place]) Blood specimen (specimen) 02/04/2018 8:16 PM CDT 02/04/2018 8:25 PM CDT Narrative [facility]HEAL ARCHULETA ([place]) - 02/04/2018 8:29 PM CDT [facility] LAB BLOOD ORDERABLES Fi nal Result Performing Organization Address City/[facility]/ZIP Co de Phone Number MICHEAL ARCHULETA ([place]) 1 [facility] [place] [address] * (ABNORMAL) Urinalysis, microscopic only (02/04/2018 7:07 PM CDT) WBC, ur 0-5 0 - 5 /HPF [facility] ([place]) RBC, ur 6-10(A) 0 - 5 /HPF [facility] ([place]) Epithelial cells, squamous, ur 1-5 0 - 5 /HPF [facility] ([place]) Bacteria, ur 1+(A) [facility] ([place]) Hyaline casts, ur 1-5 0 - 10 /LPF [facility] ([place]) Urine 02/04/2018 7:07 PM CDT 02/04/2018 7:10 PM CDT Narrative [facility] ([place]) - 02/04/2018 7:18 PM CDT [facility] LAB URINE ORDERABLES Fi nal Result Performing Organization Address City/[facility]/ZIP Co de Phone Number MICHEAL ARCHULETA ([place]) 1 [facility] [employer] [place] [address] * (ABNORMAL) Urinalysis reflex to microscopic and culture Urine (02/04/2018 7:07 PM CDT) Color, ur Alix Yellow [facility] ([place]) Clarity, ur Clear Clear [facility] ([place]) Specific gravity, ur 1.030(H) 1.010 - 1.025 [facility] ([place]) pH, urine 5.5 [facility] ([place]) Protein, ur ql 1+(A) Negative [facility] ([place]) Glucose, ur ql Negative Negative [facility] ([place]) Ketones, ur Negative Negative [facility] ([place]) Bilirubin, ur Negative Negative [facility] ([place]) Blood, ur Trace(A) Negative [facility] ([place]) Urobilinogen, ur 0.2 mg/dL [facility] ([place]) Nitrite, ur Negative Negative [facility] ([place]) Leukocyte esterase, ur Negative Negative [facility] ([place]) Urine 02/04/2018 7:07 PM CDT 02/04/2018 7:10 PM CDT Narrative [facility] ([place]) - 02/04/2018 7:18 PM CDT ?? Urine pH is affected by diet, medications, systemic acid-base disturbances, and renal tubular function. ??pH may affect urinary stone formation. ??For example, urine pH below 6.0 may help reduce the tendency for calcium phosphate stones and pH greater than 6.0 may reduce the tendency for uric acid stone formation. Source: [facility]. Last revised 06-14-2017 [facility] LAB MICROBIOLOGY - GENE RAL ORDERABLES Final Result Performing Organization Address City/[facility]/ZIP Co de Phone Number MICHEAL ARCHULETA ([place]) 1 [facility] [employer] [place] [address] * ECG 12 lead (02/04/2018 7:04 PM CDT) Patient age 18 years [facility] Interpretation Text SINUS TACHYCARDIANONSPECIFIC T-WAVE ABNORMALITYABNORMAL RHYTHM ECGPREVIOUS TRACIN02/15/2017 19.22 [facility] Comment:Physician Interprete r Dr. Lan Neal M.D. Ventricular Rate EKG/Min 110 /min [facility] P Wave Duration 116 ms [facility] QRS-Interval (MSEC) 99 ms [facility] OK-Interval (MSEC) 131 ms [facility] QT Interval 324 ms [facility] QTc 411 ms [facility] QTC Interval ms [facility] P Enloe 44 deg [facility] QRS Enloe 40 deg [facility] T Enloe 58 deg [facility] 02/04/2018 7:04 PM CDT us Alice Sinclair ECG ORDERABLES Final R esult [facility] * Antibody screen (02/04/2018 7:02 PM CDT) Steve, indirect, Gel Interpretation Negative ABSC [facility] ([place]) Blood specimen (specimen) 02/04/2018 7:02 PM CDT 02/04/2018 7:04 PM CDT Narrative [facility] ([place]) - 02/04/2018 7:53 PM CDT Has the patient had Daratumumab (Darzalex) in the past 6 months?->Unknown us Kavitha Lange MD LAB BLOOD BANK TEST ORDERA BLES Final Result [facility] ([place]) 1 [facility] [place] [address] * ABO/Rh (02/04/2018 7:02 PM CDT) ABO/Rh A Positive [facility] ([place]) Blood specimen (specimen) 02/04/2018 7:02 PM CDT 02/04/2018 7:04 PM CDT Narrative MICHEAL ARCHULETA ([place]) - 02/04/2018 7:53 PM CDT Has the patient had Daratumumab (Darzalex) in the past 6 months?->Unknown Kavitha Lange MD LAB BLOOD BANK TEST ORDERA BLES Final Result Performing Organization Address [facility] Co de Phone Number MICHEAL ARCHULETA ([place]) 1 [facility] [place] [address] * (ABNORMAL) D-dimer, quantitative (02/04/2018 6:55 PM CDT) Pathologist [facility] D-dimer <150(L) 150 - 230 ng/mL D-DU ZULMALANEY ARCHULETA ([place]) Comment: Interpretive Data This D-dimer test is approved by the FDA to exclude suspected PE and DVT in outpatients when the result is <230 ng/mL in conjunction with a pre-test probability score of low or moderate using the Wells criteria. Current Interpretive Data was last revised on 2015. Blood specimen (specimen) 02/04/2018 6:55 PM CDT 02/04/2018 8:50 PM CDT Narrative MICHEAL ARCHULETA ([place]) - 02/04/2018 9:03 PM CDT Alice Sinclair LAB BLOOD ORDERABLES Fi nal Result Performing Organization Address [facility] [place] Co de Phone Number MICHEAL ARCHULETA ([place]) 1 [facility] [place] [address] * eGFR (02/04/2018 6:55 PM CDT) Pathologist [facility] [place] eGFR >60 mL/min/1.7 3 m2 MICHEAL ARCHULETA ([place]) Comment: Interpretive Data Reference Interval Normal ?>/= 90 mL/min/1.73m2 Mildly decreased* ? 60 - 89 mL/min/1.73m2 Mildly to moderately decreased ?45 - 59 mL/min/1.73m2 Moderately to severely decreased ??30 - 44 mL/min/1.73m2 Severely decreased ?15 - 29 mL/min/1.73m2 Kidney Failure ?< 15 ??mL/min/1.73m2 *Relative to young adult level If -Citizen Of [place] multiply value by 1.16. Estimated glomerular filtration [...] was last reviewed 2015. Blood specimen (specimen) 02/04/2018 6:55 PM CDT 02/04/2018 7:00 PM CDT Narrative [facility] ([place]) - 02/04/2018 7:22 PM CDT us Kavitha Lange MD LAB BLOOD ORDERABLES Final Result [facility] ([place]) 1 [facility] Department [place] [address] * (ABNORMAL) Differential, auto (02/04/2018 6:55 PM CDT) Neutrophil abs 11.0(H) 1.7 - 6.5 K/cumm [facility] ([place]) Imm gran abs 0.1 0.0 - 0.1 K/cumm [facility] ([place]) Lymphocyte abs 2.2 0.8 - 3.3 K/cumm [facility] ([place]) Monocyte abs 0.6 0.2 - 0.8 K/cumm [facility] ([place]) Eosinophil abs 0.1 0.0 - 0.5 K/cumm [facility] ([place]) Basophil abs 0.0 0.0 - 0.1 K/cumm [facility] ([place]) Neutrophil pct 78.3 % [facility] ([place]) Comment: Interpretive Data Percent cell count reference ranges are not reported, since discordance with absolute values may lead to misinterpretation of CBC data. Current Interpretive Data was last revised on 2017. Imm gran pct 1.0 % [facility] ([place]) Comment: Interpretive Data Percent cell count reference ranges are not reported, since discordance with absolute values may lead to misinterpretation of CBC data. Current Interpretive Data was last revised on 2017. Lymphocyte pct 15.7 % [facility] ([place]) Comment: Interpretive Data Percent cell count reference ranges are not reported, since discordance with absolute values may lead to misinterpretation of CBC data. Current Interpretive Data was last revised on 2017. Monocyte pct 4.2 % [facility] ([place]) Comment: Interpretive Data [...] was last revised on 2017. Basophil pct 0.2 % [facility] ([place]) Comment: Interpretive Data Percent cell count reference ranges are not reported, since discordance with absolute values may lead to misinterpretation of CBC data. Current Interpretive Data was last revised on 2017. Blood specimen (specimen) 02/04/2018 6:55 PM CDT 02/04/2018 7:00 PM CDT Narrative [facility] ([place]) - 02/04/2018 7:02 PM CDT us Kavitha Lange MD LAB BLOOD ORDERABLES Final Result ZULMALANEY ARCHULETA ([place]) 1 [facility] Department [place] [address] * hCG, blood, quantitative (02/04/2018 6:55 PM CDT) hCG, quant <5.0 0.0 - 5.0 IUnits/L [facility] ([place]) Comment: Interpretive Data Non- Female premenopausal: < or = 5.0 IUnits/L Men: < 5.0 IUnits/L Weeks of Gestation ? Reference Interval ?? 3 to 6 ? 5.8-31,795 IUnits/L ?? 7 to 10 ? 3,697-186,977 IUnits/L ??12 to 15 ?27,832- 70,791 IUnits/L ??16 to 18 ? 9,040- 58,179 IUnits/L Current Interpretive Data was last revised on 2018. Blood specimen (specimen) 02/04/2018 6:55 PM CDT 02/04/2018 7:00 PM CDT Narrative [facility] ([place]) - 02/04/2018 7:22 PM CDT Alice Sinclair LAB BLOOD ORDERABLES Fi nal Result [facility] ([place]) 1 [facility] Department [place] [address] * Comprehensive metabolic panel (02/04/2018 6:55 PM CDT) Sodium 140 135 - 145 mmol/L [facility] ([place]) Potassium, pl 4.2 3.3 - 4.9 mmol/L [facility] ([place]) Chloride 101 97 - 110 mmol/L [facility] ([place]) CO2 26 22 - 32 mmol/L [facility] ([place]) Anion gap 13 2 - 15 mmol/L [facility] ([place]) BUN 16 8 - 25 mg/dL [facility] ([place]) Creatinine 0.73 0.60 - 1.10 mg/dL [facility] ([place]) Glucose 117 70 - 199 mg/dL [facility] ([place]) [...] 1.2 mg/dL [facility] ([place]) Protein, pl 7.7 6.5 - 8.5 g/dL [facility] ([place]) Albumin 3.8 3.5 - 5.0 g/dL [facility] ([place]) Alk phos 118 40 - 130 Units/L [facility] ([place] ALT 26 7 - 45 Units/L [facility] ([place] AST 21 10 - 45 Units/L [facility] ([place]) Blood specimen (specimen) 02/04/2018 6:55 PM CDT 02/04/2018 7:00 PM CDT Narrative [facility] ([place]) - 02/04/2018 7:22 PM CDT Alice [facility] LAB BLOOD ORDERABLES Fi nal Result [facility] 1 [facility] Department of Laboratories [place], [place] [id number] * (ABNORMAL) CBC with auto differential (02/04/2018 6:55 PM CDT) WBC 14.0(H) 3.8 - 9.9 K/cumm [facility] ([place]) Hgb 11.8(L) 11.9 - 15.5 g/dL [facility] ([place]) Hct 38.7 35.6 - 45.5 % [facility] ([place]) Plt 342 150 - 400 K/cumm [facility] ([place]) MPV 11.2 9.1 - 12.3 fL [facility] ([place]) RBC 4.97 3.90 - 5.20 M/cumm [facility] ([place]) MCV 77.9(L) 81.3 - 96.4 fL [facility] ([place]) MCH 23.7(L) 27.1 - 33.3 pg [facility] ([place]) MCHC 30.5(L) 32.3 - 35.7 g/dL [facility] ([place]) RDW CV 15.3(H) 11.1 - 14.9 % [facility] ([place]) RDW SD 42.9 35.7 - 48.1 fL [facility] ([place]) NRBC abs 0.00 0.00 - 0.01 K/cumm [facility] ([place]) Blood specimen (specimen) 02/04/2018 6:55 PM CDT 02/04/2018 7:00 PM CDT Narrative [facility] ([place]) - 02/04/2018 7:02 PM CDT Alice Sinclair LAB BLOOD ORDERABLES Fi nal Result MICHEAL ARCHULETA ([place]) 1 [facility] Department [place] [address] documented in this encounter Visit Diagnoses Diagnosis Cervicitis- Primary Cervicitis and endocervicitis Mesenteric adenitis Nonspecific mesenteric lymphadenitis Gastroesophageal reflux disease, esophagitis presence not specified documented in this encounter Administered Medications Inactive Administered Medications - up to 3 most recent administrations Medication Order MAR Action Action Date Dose Rate Site al & mag hydroxide simethicone-lidocaine oral suspension mixture 40 mL, oral, Once, On Sun02/04/18 at 2205, For 1 dose Given 02/04/2018 10:08 PM CDT 40 mL ioversol intravenous syringe 100 mL 100 mL, intravenous, Once in imaging, contrast, Starting on Sun02/04/18 at 2118, For 1 dose Given 02/04/2018 9:19 PM CDT 100 mL levoFLOXacin (LEVAQUIN) tablet 500 mg 500 mg, oral, Once, On Sun02/04/18 at 2317, For 1 dose, Give 2 hrs before or 2 hrs after MVI, antacids, or other products containing sucralfate, magnesium, aluminum, iron, or zinc. May be taken without regard to meals., Indications: Abdominal/Pelvic InfectionIndications:Abdomi nal/Pelvic Infection Given 02/04/2018 11:33 PM CDT 500 mg morphine injection 4 mg 4 mg, intravenous, Once, On Sun02/04/18 at 1932, For 1 dose, Indications: PainIndications:Pain Given 02/04/2018 8:10 PM CDT 4 mg ondansetron (ZOFRAN) injection 4 mg 4 mg, intravenous, Once, On Sun02/04/18 at 1907, For 1 dose, Indications: Nausea, VomitingIndications:Nausea, Vomiting Given 02/04/2018 7:12 PM CDT 4 mg sodium chloride 0.9% bolus 1,000 mL 1,000 mL, intravenous, at 1,000 mL/hr, Administer over 1 Hours, Once, On Sun02/04/18 at 1905, For 1 dose New Bag 02/04/2018 7:12 PM CDT 1,000 mL 1000 mL/hr sodium chloride 0.9% bolus 1,000 mL 1,000 mL, intravenous, at 1,000 mL/hr, Administer over 1 Hours, Once, On Sun02/04/18 at 2005, For 1 dose New Bag 02/04/2018 8:13 PM CDT 1,000 mL 1000 mL/hr documented in this encounter Active and Recently Administered Medications Times are shown in CDT. Scheduled Medication Order 02/02/2018 02/03/2018 02/04/2018 al & mag hydroxide simethicone-lidocaine oral suspension mixture (COMPLETED) 40 mL, oral, Once, On Sun02/04/18 at 2205, For 1 dose 2208 (Given - Provid er: Jenny Briones RN) levoFLOXacin (LEVAQUIN) tablet 500 mg (COMPLETED) 500 mg, oral, Once, On Sun02/04/18 at 2317, For 1 dose, Give 2 hrs before or 2 hrs after MVI, antacids, or other products containing sucralfate, magnesium, aluminum, iron, or zinc. May be taken without regard to meals., Indications: Abdominal/Pelvic Infection 2332 (Given - Provid er: Beatriz Tejeda RN) morphine injection 4 mg (COMPLETED) 4 mg, intravenous, Once, On Sun02/04/18 at 1932, For 1 dose, Indications: Pain 2009 (Given - Provid er: Anitha Ugalde RN) ondansetron (ZOFRAN) injection 4 mg (COMPLETED) 4 mg, intravenous, Once, On Sun02/04/18 at 1907, For 1 dose, Indications: Nausea, Vomiting 1911 (Given - Provid er: Anitha Ugalde RN) sodium chloride 0.9% bolus 1,000 mL (COMPLETED) 1,000 mL, intravenous, at 1,000 mL/hr, Administer over 1 Hours, Once, On Sun02/04/18 at 1905, For 1 dose 1911 (New Bag - Prov ider: Anitha Ugalde RN)2011 (Due: Stopped - Provider: Anitha Ugalde RN)2012 (Stopped - Provider: Anitha Ugalde RN) sodium chloride 0.9% bolus 1,000 mL (COMPLETED) 1,000 mL, intravenous, at 1,000 mL/hr, Administer over 1 Hours, Once, On Sun02/04/18 at 2005, For 1 dose 2012 (New Bag - Prov ider: Anitha Ugalde RN)2112 (Due: Stopped - Provider: Anitha Ugalde RN)2128 (Stopped - Provider: Anitha Ugalde RN) PRN Medication Order 02/02/2018 02/03/2018 02/04/2018 ioversol intravenous syringe 100 mL (COMPLETED) 100 mL, intravenous, Once in imaging, contrast, Starting on Sun02/04/18 at 2117, For 1 dose 2118 (Given - Provid er: Leslye Lara, R-RT) documented in this encounter Orders Medications Ordered That Ed ht Not Have Been Administered Count Last Ordered Date First Ordered Date aluminum-magnesium hydroxide -simethicone (MAALOX) 40-40-4 mg/mL oral suspension - ADS Override Pull 1 02/04/2018 azithromycin (ZITHROMAX) tablet 1,000 mg 1 02/04/2018 cefTRIAXone (ROCEPHIN) steri le water (premix) 500 mg 1 02/04/2018 lidocaine viscous (XYLOCAINE ) 2 % solution - ADS Override Pull 1 02/04/2018 Nursing Count Last Ordered Date First Orde red Date CARDIO RESPIRATORY MONITORING 1 02/04/2018 CONTINUOUS PULSE OXIMETRY 1 02/04/2018 PROVIDE EQUIPMENT / SUPPLIES AT BEDSIDE 1 0 02/04/2018 IV Count Last Ordered Date First Orde red Date INSERT PERIPHERAL IV 1 02/04/2018 documented in this encounter Care Teams Equipment Inspector Relationship Specialty Start Date End Date No, Physician PCP - General 12/26/17 04/23/20 No, Physician 01/10/17 documented as of this encounter
--- OUTSIDE RECORDS SUMMARY | 2024-06-13 23:59 | XMS_ITS | Encounter Summary ---
Author Organization [facility] Healthcare Address [address] [place] [address] Care Team Providers Care Addictions Counselor Name Role Phone No, Physician Primary Care Provider [phone] Encounter Details Date Type Department Care Team (Late st Contact Info) Description 12/21/2016 6:29 PM CDT - 12/21/2016 11:03 PM CDT Emergency [facility] Emergency Department [address] [place] [address] Bruno Barron MD [address] [place] [address] Discharge Disposition: Discharge to home or self care Social History Tobacco Use Types Packs/Day Years Used Date Smoking Tobacco: Never Assessed Comments Unknown Sex and Gender Information Value Date Recorded Sex Assigned at Not on file 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 Gender Identity Not on file Sexual Orientation Not on file documented as of this encounter Discharge Disposition Disposition Code Departure Means Destination Discharge to home or self care documented in this encounter Plan of Treatment Not on file documented as of this encounter Procedures Procedure Name Priority Date/Time Associated Diagnosis Comments DISCHARGE LABORATORY CUMULATIVE REPORT 12/22/2016 12:00 AM CDT DIFFERENTIAL AUTO STAT 12/21/2016 9:1 0 PM CDT CBC WITH AUTO DIFFERENTIAL STAT 12/21/2016 9:10 PM CDT documented in this encounter Results * DISCHARGE LABORATORY CUMULATIVE REPORT (12/22/2016 12:00 AM CDT) Narrative 12/22/2016 12:00 AM CDT Ordered by an unspecified provider. us Historical Provider LAB BLOOD ORDERABLES Farida l Result * Differential, auto (12/21/2016 9:10 PM CDT) Neutrophil pct 66.6 % [facility] Imm gran pct 0.5 % [facility] Lymphocyte pct 26.0 % [facility] Monocyte pct 5.7 % [facility] Eosinophil pct 0.9 % [facility] Basophil pct 0.3 % [facility] Neutrophil abs 6.37 1.70 - 6.50 K/cumm [facility] Imm gran abs 0.05 0.00 - 0.10 K/cumm [facility] Lymphocyte abs 2.49 0.80 - 3.30 K/cumm [facility] Monocyte abs 0.55 0.20 - 0.80 K/cumm [facility] Eosinophil abs 0.09 0.00 - 0.50 K/cumm [facility] Basophil abs 0.03 0.00 - 0.10 K/cumm [facility] Blood specimen (specimen) 12/21/2016 9:10 PM CDT 12/21/2016 9:37 PM CDT us Notinfile Unknown LAB BLOOD ORDERABLES Final Res ult [facility] [place] [address] * (ABNORMAL) CBC with auto differential (12/21/2016 9:10 PM CDT) WBC 9.58 3.80 - 9.90 K/cumm [facility] RBC 4.59 3.90 - 5.20 M/cumm [facility] Hgb 11.8(L) 11.9 - 15.5 g/dL [facility] Hct 36.8 35.6 - 45.5 % [facility] MCV 80.2(L) 81.3 - 96.4 fL [facility] MCH 25.7(L) 27.1 - 33.3 pg [facility] MCHC 32.1(L) 32.3 - 35.7 g/dL [facility] RDW CV 14.3 11.1 - 14.9 % [facility] RDW SD 41.3 35.7 - 48.1 fL [facility] Plt 308 150 - 400 K/cumm [facility] MPV 12.1 9.1 - 12.3 fL [facility] NRBC 0.0 0.0 - 0.2 % [facility] NRBC abs 0.00 0.00 - 0.01 K/cumm [facility] Blood specimen (specimen) 12/21/2016 9:10 PM CDT 12/21/2016 9:37 PM CDT us Notinfile Unknown LAB BLOOD ORDERABLES Final Res ult [facility] [place] [address] documented in this encounter Visit Diagnoses Not on filedocumented in this encounter Care Teams Addictions Counselor Relationship Specialty Start Date End Date No, Physician PCP - General 12/17/16 01/09/17 documented as of this encounter
--- OUTSIDE RECORDS SUMMARY | 2024-06-13 23:59 | XMS_ITS | Encounter Summary ---
Author Organization [facility] Healthcare Address [address] [place] [address] Care Team Providers Care Winterizer Name Role Phone No, Physician Unavailable Unknown, Notinfile Primary Care Provider Unavail able Encounter Details Date Type Department Care Team (Late st Contact Info) Description 02/12/2017 5:47 PM CDT - 02/12/2017 11:54 PM CDT Emergency [facility] Emergency Department [address] [place] [address] [place] [address] 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 Gender Identity Not on file Sexual Orientation Not on file documented as of this encounter Discharge Disposition Disposition Code Departure Means Destination Discharge to home or self care documented in this encounter Plan of Treatment Not on file documented as of this encounter Procedures Procedure Name Priority Date/Time Associated Diagnosis Comments D-DIMER, QUANTITATIVE STAT 02/12/2017 10:21 PM CDT DIFFERENTIAL AUTO Routine 02/12/2017 9:0 0 PM CDT CBC WITH AUTO DIFFERENTIAL Routine 02/12 9:00 PM CDT EGFR STAT 02/12/2017 8:20 PM CDT TROPONIN I STAT 02/12/2017 8:20 PM CDT BASIC METABOLIC PANEL STAT 02/12/2017 8:20 PM CDT URINALYSIS AND REFLEX TO MICROSCOPIC AND CULTURE STAT 02/12/2017 7:30 PM CDT ELECTROCARDIOGRAPHY (ECG) 02/12/2017 DISCHARGE LABORATORY CUMULATIVE REPORT 02/12/2017 12:00 AM CDT documented in this encounter Results * D-dimer, quantitative (02/12/2017 10:21 PM CDT) D-dimer <150 150 - 230 ng/mL D-DU [facility] Comment: Interpretive Data This D-dimer test is approved by the FDA to exclude suspected PE and DVT in outpatients when the result is <230 ng/ml D-DU in conjunction with a pre-test probability score of low or moderate using the Wells Criteria. Current Interpretive Data was last revised on 2015. Blood specimen (specimen) 02/12/2017 10:21 PM CDT 02/12/2017 10:33 PM CDT Derek Schultz MD LAB BLOOD ORDERABLES Final Res ult [facility]AL PRITCHETT [address] Department [place] [address] * (ABNORMAL) Differential, auto (02/12/2017 9:00 PM CDT) Neutrophil pct 70.6 % [facility] Imm gran pct 0.6 % [facility] Lymphocyte pct 22.6 % [facility] Monocyte pct 5.2 % [facility] Eosinophil pct 0.1 % [facility] Basophil pct 0.3 % [facility] Neutrophil abs 8.89(H) 1.70 - 6.50 K/cumm [facility] Imm gran abs 0.07 0.00 - 0.10 K/cumm [facility] Lymphocyte abs 2.84 0.80 - 3.30 K/cumm [facility] Monocyte abs 0.66 0.20 - 0.80 K/cumm [facility] Eosinophil abs 0.09 0.00 - 0.50 K/cumm [facility] Basophil abs 0.04 0.00 - 0.10 K/cumm [facility] Blood specimen (specimen) 02/12/2017 9:00 PM CDT 02/13/2017 11:43 AM CDT us Notinfile Unknown LAB BLOOD ORDERABLES Final Res ult MICHEAL [address] [place] [address] * (ABNORMAL) CBC with auto differential (02/12/2017 9:00 PM CDT) WBC 12.59(H) 3.80 - 9.90 K/cumm [facility] RBC 4.67 3.90 - 5.20 M/cumm [facility] Hgb 12.1 11.9 - 15.5 g/dL [facility] Hct 39.4 35.6 - 45.5 % [facility] MCV 84.4 81.3 - 96.4 fL [facility] MCH 25.9(L) 27.1 - 33.3 pg [facility] MCHC 30.7(L) 32.3 - 35.7 g/dL [facility] RDW CV 14.6 11.1 - 14.9 % [facility] RDW SD 44.8 35.7 - 48.1 fL [facility] Plt 301 150 - 400 K/cumm [facility] MPV 13.1(H) 9.1 - 12.3 fL [facility] NRBC 0.0 0.0 - 0.2 % [facility] NRBC abs 0.00 0.00 - 0.01 K/cumm [facility] Blood specimen (specimen) 02/12/2017 9:00 PM CDT 02/13/2017 11:43 AM CDT us Notinfile Unknown LAB BLOOD ORDERABLES Final Res ult [facility]AL PRITCHETT [address] [place] [address] * (ABNORMAL) Basic metabolic panel (02/12/2017 8:20 PM CDT) Sodium 137 135 - 145 mmol/L C[facility] Potassium, pl 5.1 3.5 - 5.1 mmol/L [facility] Chloride 102 100 - 114 mmol/L [facility] CO2 22 22 - 32 mmol/L [facility] BUN 11 8 - 24 mg/dL [facility] Glucose 99 70 - 199 mg/dL [facility] Creatinine 0.68 0.20 - 1.20 mg/dL [facility] Calcium 9.4 8.4 - 10.5 mg/dL [facility] Anion gap 18(H) 8 - 16 mmol/L [facility] Blood specimen (specimen) 02/12/2017 8:20 PM CDT 02/12/2017 9:07 PM CDT Derek Schultz MD LAB BLOOD ORDERABLES Final Res ult [facility] [address] Department [place] [address] * eGFR (02/12/2017 8:20 PM CDT) eGFR 127 mL/min/1.7 3 m2 [facility] Comment: Interpretive Data Reference Interval Normal ?>/= 90 mL/min/1.73m2 Mildly decreased* ? 60 - 89 mL/min/1.73m2 Mildly to moderately decreased ?45 - 59 mL/min/1.73m2 Moderately to severely decreased ??30 - 44 mL/min/1.73m2 Severely decreased ?15 - 29 mL/min/1.73m2 Kidney Failure ?< 15 ??mL/min/1.73m2 *Relative to young adult level If -Malag[place] multiply value by 1.16. Estimated glomerular filtration [...] was last reviewed 2015. Blood specimen (specimen) 02/12/2017 8:20 PM CDT 02/12/2017 9:07 PM CDT us Derek Schultz MD LAB BLOOD ORDERABLES Final Res ult Performing Organization Address City/[facility]/ZIP Co de Phone Number [facility] PRITCHETT [address] [place] [address] * Troponin I (02/12/2017 8:20 PM CDT) Troponin I <0.03 0.00 - 0.14 ng/mL MICHEAL Comment: Interpretive Data Normal: ? 0.00 - 0.14 ng/mL Indeterminate: ?0.15 - 0.50 ng/mL MT / Cardiac Muscle Damage: ? >0.50 ng/mL Current interpretive data was last reviewed 2015 Blood specimen (specimen) 02/12/2017 8:20 PM CDT 02/12/2017 8:24 PM CDT us Derek Schultz MD LAB BLOOD ORDERABLES Edited Re sult - Final [facility]AL PRITCHETT [address] [place] [address] * Urinalysis reflex to microscopic and culture (02/12/2017 7:30 PM CDT) Color, ur Yellow [facility] Clarity, ur Clear [facility] Specific gravity, ur 1.013 1.001 - 1.033 [facility] pH, ur 7.0 5.0 - 8.0 [facility] Protein, ur ql Negative Negative [facility] Glucose, ur ql Negative Negative [facility] Ketones, ur Negative Negative [facility] Bilirubin, ur Negative Negative [facility] Blood, ur Negative Negative [facility] Urobilinogen, ur <2.0 <2.0 [facility] Nitrites, ur Negative Negative [facility] Leukocyte esterase, ur Negative Negative [facility] Urine 02/12/2017 7:30 PM CDT 02/12/2017 7:41 PM CDT Derek Schultz MD LAB MICROBIOLOGY - GENERAL ORD ERABLES Final Result [facility] [address] Department [place] [address] * DISCHARGE LABORATORY CUMULATIVE REPORT (02/12/2017 12:00 AM CDT) Narrative 02/12/2017 12:00 AM CDT Ordered by an unspecified provider. Historical Provider LAB BLOOD ORDERABLES Farida l Result * ELECTROCARDIOGRAPHY (ECG) (02/12/2017) Provider Scanning ECG ORDERABLES Final Result documented in this encounter Visit Diagnoses Not on filedocumented in this encounter Care Teams Winterizer Relationship Specialty Start Date End Date Unknown, Notinfile PCP - General 02/12/17 02/12/17 No, Physician 01/10/17 documented as of this encounter
--- OUTSIDE RECORDS SUMMARY | 2024-06-13 23:59 | XMS_ITS | Encounter Summary ---
Author Organization [facility] Healthcare Address [address] [place] [address] Care Team Providers Care Auto Garage Attendant Name Role Phone Unavailable Primary Care Provider Unavailabl e Encounter Details Date Type Department Care Team (Late st Contact Info) Description 04/14/2011 9:45 AM DIRECTOR SHIP - 04/14/2011 11:38 AM DIRECTOR SHIP Hospital Encounter [facility] Kavitha Person MD [address] [place] [id number] Rash and other nonspecific skin eruption Social History Tobacco Use Types Packs/Day Years Used Date Smoking Tobacco: Never Assessed Comments Unknown Sex and Gender Information Value Date Recorded Sex Assigned at Not on file Legal Sex Female 8:56 PM DIRECTOR SHIP Gender Identity Not on file Sexual Orientation Not on file documented as of this encounter Plan of Treatment Not on file documented as of this encounter Visit Diagnoses Diagnosis Rash and other nonspecific skin eruption documented in this encounter
== END 2024-06-06 10:37 | disposition home or self-care (01) ==
PROVIDERS: Emergency Provider Nurse Practitioner Family
DX: N89.8 Other specified noninflammatory disorders of vagina (principal); Z20.2 Contact with and (suspected) exposure to infections with a predominantly sexual mode of transmission; E66.01 Morbid (severe) obesity due to excess calories; I10 Essential (primary) hypertension; G47.33 Obstructive sleep apnea (adult) (pediatric); Z68.41 Body mass index [BMI] 40.0-44.9, adult
CPT/HCPCS: 81025; 87491; 87591; 87661; 96372; 99213; G0463; J0696; J2003